=== PATIENT | female | born 1940 | race Caucasian/White ===

== ENCOUNTER 2017-10-19 08:48 | Observation (INO) | payer MEDICARE, SELFPAY ==
[2017-10-19] VITALS (8 sets, daily range): BP systolic 140–165; BP diastolic 69–90; PULSE 90–106; RESP 13–24; TEMP 37.1–37.5; O2SAT 88–99; BMI 28.3; BMI 29.5
--- NOTE | 2017-10-19 08:58 | EKG12_ITS ---
Test Reason : GEN ILLNESS Blood Pressure : / mmHG Vent. Rate : 099 BPM Atrial Rate : 099 BPM P-R Int : 148 ms QRS Dur : 076 ms QT Int : 364 ms P-R-T Axes : 047 -01 012 degrees QTc Int : 467 ms Normal sinus rhythm Nonspecific ST abnormality Abnormal ECG Confirmed by BEATRIZ MANCIA ([id number]), technical editor JUDIE SUAREZ ([id number]) on 10/23/2017 9:45:43 AM Referred By: Jose L Valenzuela Confirmed By:BEATRIZ MANCIA
--- NOTE | 2017-10-19 08:58 | CT_ITS ---
STUDY: CT ABDOMEN AND PELVIS WITHOUT CONTRAST REASON FOR EXAM: Female, 76 years old. Generalized illness and weakness RADIATION DOSAGE (If Supplied By Facility): CTDIvol = ( 13.34 ) mGy, DLP = ( 698.27 ) mGycm TECHNIQUE: Transaxial images were obtained from the dome of the diaphragm to the symphysis pubis without oral contrast, and without intravenous contrast. Sagittal and coronal images were reconstructed. Individualized dose optimization techniques were used for this CT. COMPARISON: None. FINDINGS: Elevated right hemidiaphragm. Lung bases are otherwise clear. Borderline cardiomegaly. Normal liver. There are surgical clips in the gallbladder fossa consistent with a prior cholecystectomy. Normal spleen. There is diffuse atrophy of the pancreas. Normal bilateral adrenal glands. Normal right kidney. Mid pole left nonobstructing stone measuring 4.8 mm. Exophytic hyperdense upper pole left renal cyst measuring 1.95 cm. Normal visualized stomach. Scattered gaseous distended loops of small bowel without obstruction; fluid-filled appearance. There are multiple colonic diverticula consistent with diverticulosis. There is non-visualization of the appendix. There is diffuse atherosclerotic calcification of the abdominal aorta, without a demonstrated aneurysm. Normal inferior vena cava. Normal retroperitoneum. Normal urinary bladder. Densely calcified large uterine fibroid. Normal abdominal wall. There are diffuse degenerative changes of the visualized lumbar spine. CT/Abdomen/Pelvis without Cont IMPRESSION: 1. Scattered fluid-filled loops of small bowel with scattered gaseous distention. No evidence of small bowel obstruction at this time. 2. Chronic diverticulosis without acute diverticulitis 3. Nonobstructing left nephrolith. Exophytic left renal cyst. 4. Nonvisualized appendix Electronically Signed: Oren Monk DO at 10:35 EST Tel , Service support ,
--- NOTE | 2017-10-19 08:58 | RAD_ITS ---
STUDY: X-RAY CHEST REASON FOR EXAM: Female, 76 years old. Cough. Generalized illness. TECHNIQUE: Single AP portable view of the chest. COMPARISON: Comparison is made with prior study dated March 09, 2018. FINDINGS: There is elevation of the right hemidiaphragm. 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 There is new blunting of the left costophrenic angle with underlying infiltration and/or atelectasis. There is borderline cardiomegaly. Normal mediastinum and quinton. Normal visualized pulmonary arteries. There is atherosclerotic tortuosity of the aortic arch and descending thoracic aorta. There is demineralization of the osseous structures. Normal visualized ribs, clavicles, and shoulders. There is no demonstrated abnormality of the visualized soft tissue structures of the upper abdomen. RAD/Chest 1 View (Portable) IMPRESSION: New small left pleural effusion with underlying infiltration and/or atelectasis. Electronically Signed: Fan Benavidez MD at 9:26 EST Tel [phone], Service support ,
--- NOTE | 2017-10-19 09:32 | ED.DCSUM_ITS ---
- ER Visit Summary Date of Service: 10/19/17 Chief Complaint: Generalized weakness History of Present Illness: The patient is a 76 F presenting for evaluation secondary to generalized weakness nausea vomiting diarrhea and abdominal pain. Apparently over the course of the week the patient has been having issues with increasing weakness. She saw her PCP 2 days ago was thought that potentially this was secondary to polypharmacy. However, the patient's family has been passing around a GI illness and the patient contracted this yesterday. Patient states that it has been associated with multiple episodes of nonbloody nonbilious emesis, as well as multiple episodes of loose watery nonbloody non- mucousy diarrhea. It is associated with a epigastric abdominal pain that is continuous and aching in sensation. Patient denies any fevers. Denies any chest pain. She denies any laterality to her weakness. Review of systems otherwise negative. Physical Examination: Vital signs are notable for heart rate of 106 respiratory rate 24. Well-nourished well-developed female no acute distress. Head normocephalic. No conjunctival pallor noted, dry mucous membranes. No JVD. Heart was tachycardic and regular with no murmurs. Respiratory tachypneic, but respirations were nonlabored nondistressed and lung sounds are clear. Abdomen was tender in the epigastrium no guarding no rebound normal bowel sounds. Extremities nonedematous. No skin rashes. Patient was alert and oriented ?3, NIH stroke scale was 0. No lateralizing neurological deficits. Test Results: EKG shows sinus rhythm at [address] segments, nonspecific T-wave flattening, no evidence of acute ischemia or arrhythmia. Chest x-ray demonstrates a left lower lobe infiltrate. CT abdomen and pelvis shows nothing acute. CBC chemistry unremarkable. Urinalysis shows blood but no infection. Emergency Department Course and Treatment: Patient presented secondary to generalized illness with abdominal pain. Workup showed only evidence of pneumonia. Patient actually demonstrated hypoxia in the emergency department with pulse ox of 88% on room air. She was placed on supplemental oxygen. This point I believe the patient requires admission. She was given Rocephin and azithromycin, and will be admitted under the hospitalist after blood cultures. Disposition: Admission Impression: 1. Community-acquired pneumonia 2. Hypoxia This note was generated with Prosettaation software. It may contain incorrect words, spelling, and punctuation that were not noted in review of the chart prior to signing ED Disposition - Plan for ED Patient: Chief Complaint: General Illness Referrals: Jose L Valenzuela MD [Primary Care Provider] -
[2017-10-19 09:42] LABS: Absolute Lymphocyte Count 0.26 X10^3/ul (0.83-4.51); Absolute Neutrophil Count 9.8 X10^3/uL (2.0-7.7); Basophil# 0.01 X10^3/uL; Basophil% 0.1 % (0-1); Hematocrit 42.4 % (37-47); Hemoglobin 13.9 g/dl (12.0-15.0); Lymphocyte # 0.26 X10^3/ul (4.0); Lymphocyte % 2.6 % (19-41); Mean Corp Hgb Conc 32.8 g/gl (32-36); Mean Corpuscular Hgb 29.6 pg (27.0-32.0); Mean Corpuscular Volume 90.4 fL (81-99); Mean Platelet Vol. 8.5 fl (6.2-12.0); Monocyte# 0.09 X10^3/uL; Monocyte% 0.9 % (0-10); Neutrophil # 9.77 X10^3/uL (2.7-7.7); Neutrophil % 96.3 % (47-70); Platelet Count 209 K/mm3 (150-450); RBC Distribution Width CV 13.5 % (11.6-14.6); Red Blood Count 4.69 M/mm3 (4.2-5.4); White Blood Count 10.1 K/mm3 (4.4-11.0)
[2017-10-19] MEDS: Ondansetron 4 MG/2 ML Vial IV ×2 (09:42→10:44)
[2017-10-19 09:44] LABS: Differential Indicated SCAN CRITERIA MET; POSITIVE COUNT NO; POSITIVE DIFFERENTIAL YES; POSITIVE MORPHOLOGY NO
--- NOTE | 2017-10-19 09:50 | NURSING ---
NO LW OR POA
[2017-10-19 09:52] LABS: ALB/GLOB Ratio 0.8 RATIO (0.9-2.4); AST(SGOT) 16 U/L (15-37); Alanine Aminotransfer ALT/SGPT 20 U/L (12-78); Albumin, Serum 3.5 g/dL (3.4-5.0); Alkaline Phosphatase 115 U/L (45-117); Anion Gap 8 (5-15); BUN 23 mg/dL (7-18); BUN/Creat Ratio 22.1 RATIO (10-20); Calcium,Total 9.1 mg/dL (8.5-10.1); Chloride 105 mmol/L (98-107); Creatinine, Serum 1.04 mg/dL (0.55-1.02); EST Glomerular Filtration Rate 54 mL/min (>60); Est Glom Filt Rate - Afr Amer 66 mL/min (>60); Globulin 4.3 g/dL (2.2-4.2); Glucose 141 mg/dL (70-110); Potassium 3.9 mmol/L (3.5-5.1); Protein, Total 7.8 g/dL (6.4-8.2); Sodium Level 140 mmol/L (136-145)
[2017-10-19 11:21] LABS: Mucous, Urine 0 SEEN /hpf (<or=2+)
[2017-10-19 11:25] LABS: Color, Urine Yellow (Yellow); Glucose, Dipstick Normal (Normal); Ketone-Dipstick Negative (Negative); Leukocyte Esterase-Dipstick 25 /ul (Negative); Nitrite-Dipstick Negative (Negative); Occult Blood-Urine 150 /ul (Negative); Protein-Dipstick 100 mg/dl (Negative); Specific Gravity, Urine 1.015 (1.002-1.030); Urine Bilirubin Dipstick Negative (Negative); Urine Clarity Sl. Cloudy (Clear); Urine Urobilinogen Normal (Normal)
[2017-10-19 11:31] LABS: Bacteria 1+ /hpf (None Seen); Red Blood Cells-Urine 10-25 SEEN /hpf (0-5); Squamous Epithelial Cells - UA 0-5 SEEN /hpf (5-10); White Blood Cells 0-5 SEEN /hpf (0-5)
[2017-10-19] MEDS: Ceftriaxone 1 GM/50 mL Premix x1 IV (12:40)
[2017-10-19 13:36] LABS: Base Excess 2 mmol/L (-2 to +2); Bicarbonate 26.7 mmol/L (22-26); Blood Gas Specimen Type ART; O2 Delivery Device Room Air; PO2 59 mmHG (75-100); SITE L Brachial; SO2 90 % (95-99); Time Given 1328; Total Carbon Dioxide 28 mmol/L; pCO2 44.8 mmHg (35-45); pH 7.38 (7.35-7.45)
--- NOTE | 2017-10-19 14:41 | NURSING ---
DR RUIZ IN ROOM
--- NOTE | 2017-10-19 15:23 | HP.PCM_ITS ---
Problem List (1) Hypoxia Status: Acute (2) Gastroenteritis Status: Acute (3) Depression Status: Chronic (4) HLD (hyperlipidemia) Status: Chronic (5) Hypertension Status: Chronic (6) Overweight (BMI 25.0-29.9) Status: Chronic History of Present Illness Date of Admission: 10/19/17 Chief Complaint: nausea, vomiting, diarrhea The patient is a 76 year old F who presents to the ER complaining of nausea vomiting and diarrhea. She has been severely nauseous with multiple episodes of vomiting, anorexia, decreased PO intake, diarrhea, and diffuse abdominal pain since last night. She has had similar off and on symptoms for several weeks, and her son also has had similar symptoms. They went to their PCP and were told they had viral gastroenteritis. The patient however feels much worse. She remains significant nauseous and is hiccuping into an emesis basin. She feels SOB when she starts vomiting. Otherwise she has no SOB. She was found to be hypoxic at one point in the ER at 88% on RA and was placed on O2. She has an occasional cough with clear sputum production. She has no fevers, some chills last night. She is dizzy when she ambulates, none at rest. [] Past Medical History Past Medical History (Chronic Problems): Chronic Problems Hx of appendectomy (Chronic) Benign essential HTN (Chronic) Depression (Chronic) HLD (hyperlipidemia) (Chronic) Overweight (BMI 25.0-29.9) (Chronic) CAD (coronary artery disease) (Chronic) Diabetes mellitus, type II (Chronic) Traumatic closed nondisplaced fracture of neck of left femur (Chronic) Status post closed reduction with internal fixation (Chronic) left femur 06/22, Dr Spears, [facility] Tinea unguium (Chronic) Dyskinesia, tardive (Chronic) Takatsuki syndrome (Chronic) Brain aneurysm (Chronic) Takotsubo syndrome (Chronic) Hypertension (Chronic) Allergies No Known Allergies Allergy (Verified 03/17/17 10:29) Home Medications: Ambulatory Orders Medication Instructions Recorded Clonidine HCl 0.05 tab PO BID 03/17/17 Fluoxetine [Prozac] 60 mg PO DAILY 03/17/17 Furosemide [Lasix] 20 mg PO DAILY 03/17/17 Lorazepam [Ativan] 1 mg PO BID 03/17/17 Losartan Potassium 100 mg PO DAILY 03/17/17 Magnesium Oxide [Mag-Ox 400] 400 mg PO QHS 03/17/17 Pantoprazole Sodium [Protonix] 20 mg PO DAILY 03/17/17 Pramipexole Di-HCl [Pramipexole 0.75 mg PO QHS 03/17/17 Dihydrochloride] Simvastatin 40 mg PO DAILY 03/17/17 Spironolactone 25 mg PO DAILY 03/17/17 Dicyclomine HCl 20 mg PO DAILY PRN 10/19/17 Minoxidil [Loniten] 2.5 mg PO BID 10/19/17 Ondansetron HCl [Zofran] 4 mg PO Q8H PRN 10/19/17 Surgical History: appendectomy, cholecystectomy, herniorrhaphy, tonsillectomy, - - 06/22/15 left hip CRIF Psychiatric History: No pertinent psych hx, Depression [employer] History: No pertinent [employer] history Smoking Status: Never smoker - *Family History Maternal History Items: Cancer - age 55, colon Paternal History Items: Cancer - in metastatic prostate Offspring History Items: - - 2 children Review of Systems Constitutional: Reports: Anorexia, Chills. Denies: Fever, Weight Change HEENT: Denies: Head Aches, Sinus Congestion, Sinus Drainage Cardiovascular: Denies: Chest Pain, Palpitations Respiratory: Reports: Cough, Shortness of Breath, Sputum production. Denies: Shortness of breath at rest Gastrointestinal: Reports: Abdominal Pain, Diarrhea, Nausea, Vomiting Genitourinary: Denies: Dysuria Musculoskeletal: Denies: Joint Pain, Joint Tenderness Skin: Denies: Rash, Wounds Neurological: Denies: Numbness, Tingling, Focal weakness Psychiatric: Denies: Anxiety, Depression, Homicidal Ideations, Suicidal Ideations Hematologic/ Lymphatic: Denies: Easy Bruising, Easy Bleeding VTE Information - Inpt Only VTE Present on Admission: No VTE Mechan Device Prophylaxis: SCD's VTE Pharm Prophylaxis ordered?: Yes Patient Problems: Active and Suspected Problems Gastroenteritis (Acute) Hypoxia (Acute) - Physical Exam General: Alert, Oriented x3, Cooperative HEENT: Atraumatic, PERRLA, EOMI, Normocephalic Oral: Dry Mucosa Neck: Supple, No JVD, Negative Carotid Bruits Lungs: Clear to auscultation, Normal air movement Cardiovascular: Regular rate, No murmurs Abdomen: Bowel Sounds Present, Soft, Tender - diffusely, no guarding. Extremities: No edema, Capillary Refill Less than 3 Seconds Skin: No rashes, No breakdown Musculoskeletal: No Tenderness to Palpation of Joints or Extremities Neurological: Cranial nerves II-XII grossly intact Psych/Mental Status: Normal Affect, Appropriate, Alert and oriented to time, place, person, mood and affect Vital Signs Temp Pulse Resp BP Pulse Ox 98.9 F 90 13 140/79 H 96 10/19/17 08:49 10/19/17 14:35 10/19/17 14:35 10/19/17 14:27 10/19/17 14:35 Oxygen Flow Rate 2 Oxygen Delivery Method Nasal Cannula Weight: 74.843 kg Body Mass Index (BMI) 28.3 Finger Stick Blood Glucose 176 Laboratory Tests Past 24 Hrs 10/19/17 10/19/17 10/19/17 09:30 09:30 09:30 WBC 10.1 RBC 4.69 Hgb 13.9 Hct 42.4 MCV 90.4 MCH 29.6 MCHC 32.8 RDW 13.5 RDW Differential 44.0 H Plt Count 209 MPV 8.5 Immature Gran % (Auto) 0.100 Neut % (Auto) 96.3 H Lymph % (Auto) 2.6 L Ida % (Auto) 0.9 Eos % (Auto) 0.0 Baso % (Auto) 0.1 Absolute Neuts (auto) 9.8 H Absolute Lymphs (auto) 0.26 L Total Counted Not Reportable Specimen Type Sample Site pH Bicarbonate Actual POC Total CO2 Base Excess O2 Saturation ABG pCO2 ABG pO2 O2 Delivery Device Blood Gas Notified Whom Blood Gas Notified Time Sodium 140 Potassium 3.9 Chloride 105 Carbon Dioxide 27.0 Anion Gap 8 BUN 23 H Creatinine 1.04 H Estim Creat Clear Calc 38.50 Est GFR (MDRD) Af Amer 66 Est GFR (MDRD) Non-Af 54 L BUN/Creatinine Ratio 22.1 H Glucose 141 H Lactic Acid 1.0 Calcium 9.1 Total Bilirubin 0.30 AST 16 ALT 20 Alkaline Phosphatase 115 Total Protein 7.8 Albumin 3.5 Globulin 4.3 H Albumin/Globulin Ratio 0.8 L Urine Color Urine Clarity Urine pH Ur Specific [place] Urine Protein Urine Glucose (UA) Urine Ketones Urine Occult Blood Urine Nitrite Urine Bilirubin Urine Urobilinogen Ur Leukocyte Esterase Urine RBC Urine WBC Ur Squamous Epith Cells Urine Bacteria Urine Mucus 10/19/17 10/19/17 11:15 13:30 WBC RBC Hgb Hct MCV MCH MCHC RDW RDW Differential Plt Count MPV Immature Gran % (Auto) Neut % (Auto) Lymph % (Auto) Ida % (Auto) Eos % (Auto) Baso % (Auto) Absolute Neuts (auto) Absolute Lymphs (auto) Total Counted Specimen Type ART Sample Site L Brachial pH 7.38 Bicarbonate Actual 26.7 H POC Total CO2 28 Base Excess 2 O2 Saturation 90 L ABG pCO2 44.8 ABG pO2 59 L O2 Delivery Device Room Air Blood Gas Notified Whom ED Blood Gas Notified Time 1328 Sodium Potassium Chloride Carbon Dioxide Anion Gap BUN Creatinine Estim Creat Clear Calc Est GFR (MDRD) Af Amer Est GFR (MDRD) Non-Af BUN/Creatinine Ratio Glucose Lactic Acid Calcium Total Bilirubin AST ALT Alkaline Phosphatase Total Protein Albumin Globulin Albumin/Globulin Ratio Urine Color Yellow Urine Clarity Sl. Cloudy Urine pH 6.0 Ur Specific [place] 1.015 Urine Protein 100 H Urine Glucose (UA) Normal Urine Ketones Negative Urine Occult Blood 150 H Urine Nitrite Negative Urine Bilirubin Negative Urine Urobilinogen Normal Ur Leukocyte Esterase 25 H Urine RBC 10-25 SEEN Urine WBC 0-5 SEEN Ur Squamous Epith Cells 0-5 SEEN Urine Bacteria 1+ Urine Mucus 0 SEEN Assessment/Plan Active and Suspected Problems Gastroenteritis (Acute) Hypoxia (Acute) 1. Acute Hypoxia - unclear etiology - Initially she was 99% on RA, then at some point in the ER decreased to 88% and was placed on O2. CT abdomen shows clear lung bases, CXR with small left pleural effusion vs consolidation vs atelectasis. Lungs clear on exam. Only complains of SOB when vomiting. Pulmonary consult. CT chest. Nonsmoker no hx asthma/copd. PRN aerosols. Afebrile no leukocytosis. Defer antibiotics. Doubt infectious process. LA neg. 2. Intractable nausea / vomiting/ diarrhea / diffuse abdominal pain - viral gastroenteritis. Son is also sick. IV fluids. prn antiemetics. clear liquid diet. s/p appendectomy and cholecystectomy. 3. Hx htn, depression, HLD - continue home meds. 4. Mildly elevated BUN and Cr - suspect dehydration - some dizziness when ambulating. dry oral mucosa - IV fluids. DVT ppx: heparin DC planning: lives alone, son helps with care, doubt she will have home going needs. This patient was seen by Cesar Fernandez PA-C under the supervision of Doctor Hansen.
--- NOTE | 2017-10-19 15:49 | NURSING ---
MED SURG OBS HYPOXIA, VIRAL GASTROENTERITIS JOSEPH
--- NOTE | 2017-10-19 16:56 | CT_ITS ---
STUDY: CT CHEST WITHOUT CONTRAST REASON FOR EXAM: Female, 76 years old. Cough, weakness RADIATION DOSAGE (If Supplied By Facility): CTDIvol = ( 15.37 ) mGy, DLP = ( 553.04 ) mGycm TECHNIQUE: Transaxial imaging was performed without the administration of intravenous contrast material. Individualized dose optimization techniques were used for this CT. COMPARISON: 10/17/2016. FINDINGS: Compressive atelectasis right lower lung. There is no demonstrated pleural abnormality. Normal heart and pericardium. Normal mediastinum. Normal hilar regions. There is prominence of the pulmonary hilar arteries without peripheral pulmonary vascular congestion, suggesting pulmonary hypertension. Normal aorta arch and descending thoracic aorta. Normal osseous structures. Fluid-filled small bowel. Right diaphragmatic hernia There is a posterior right lower thoracic subcutaneous lipoma measuring 5.[address]/Chest without Contrast IMPRESSION: Unchanged right diaphragmatic hernia. Compressive atelectasis right lower lung. Pulmonary venous hypertension. Small bowel ileus versus partial obstruction. Large posterior right lower thoracic subcutaneous lipoma. Electronically Signed: Lenny Cook DO at 18:11 EST , Service support ,
[2017-10-19] MEDS: 0.9% Normal Saline 1,000 ML 125 ML IV (17:58)
[2017-10-19] MEDS: Albuterol 2.5 MG/3 ML VIAL.NEB. INHALATION (19:36)
[2017-10-19] MEDS: LORazepam 1 MG Tablet PO (21:49)
[2017-10-19] MEDS: Minoxidil 2.5 MG Tablet PO (21:50)
[2017-10-19] MEDS: 0.9% NaCl Peripheral Flush Adult/Peds IV (21:57)
[2017-10-19] MEDS: cloNIDine HCl 0.1 MG Tablet 0.05 MG PO (22:03)
[2017-10-20] MEDS: 0.9% Normal Saline 1,000 ML 125 ML IV (01:26)
[2017-10-20 03:41] VITALS: BP 146/76; PULSE 89; RESP 18; TEMP 37.2; O2SAT 98
[2017-10-20] MEDS: 0.9% NaCl Peripheral Flush Adult/Peds IV (07:07)
[2017-10-20 07:23] VITALS: O2SAT 96
[2017-10-20 07:37] LABS: Absolute Lymphocyte Count 0.77 X10^3/ul (0.83-4.51); Absolute Neutrophil Count 5.6 X10^3/uL (2.0-7.7); Basophil# 0.01 X10^3/uL; Basophil% 0.1 % (0-1); Hematocrit 38.7 % (37-47); Hemoglobin 12.5 g/dl (12.0-15.0); Lymphocyte # 0.77 X10^3/ul (4.0); Lymphocyte % 11.5 % (19-41); Mean Corp Hgb Conc 32.3 g/gl (32-36); Mean Corpuscular Hgb 29.8 pg (27.0-32.0); Mean Corpuscular Volume 92.4 fL (81-99); Mean Platelet Vol. 8.8 fl (6.2-12.0); Monocyte# 0.29 X10^3/uL; Monocyte% 4.3 % (0-10); Neutrophil # 5.64 X10^3/uL (2.7-7.7); Neutrophil % 84.1 % (47-70); Platelet Count 189 K/mm3 (150-450); RBC Distribution Width CV 13.9 % (11.6-14.6); RBC Distribution Width SD 47.1 fl (35.1-43.9); Red Blood Count 4.19 M/mm3 (4.2-5.4); White Blood Count 6.7 K/mm3 (4.4-11.0)
--- NOTE | 2017-10-20 07:42 | PCM.CONS.GEN ---
Problem List (1) Gastroenteritis Status: Acute (2) Hypoxia Status: Acute (3) Diabetic neuropathy Status: Acute Qualifiers: Diabetes mellitus type: type 2 Diabetes mellitus complication detail: with other neurological complication Qualified Code(s): E11.49 - Type 2 diabetes mellitus with other diabetic neurological complication (4) Status post total hip replacement, left Status: Acute Comment: 08/03/15, failed concervative pinning, completed by Dr Spears [facility] (5) Benign essential HTN Status: Chronic (6) Brain aneurysm Status: Chronic (7) CAD (coronary artery disease) Status: Chronic Qualifiers: Coronary Disease-Associated Artery/Lesion type: [place] artery [place] vs. 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 Patient had attempted conservative therapy at home and saw her PCP 2 days prior to presentation to the ER. Suspicion for polypharmacy at that time. After multiple episodes of emesis, patient presented to the ER for evaluation. On evaluation in the emergency room, patient was noted to be tachycardic at 106 bpm and saturating 88% on room air. There was discussion about possible discharge home, but given patient's desaturation, patient was admitted to the floor for evaluation. Patient was empirically placed on Rocephin and azithromycin. Patient did have a CT scan of the abdomen and pelvis. Patient reports little subjective change in overall condition. Patient does have some nausea and tinnitus this morning. Patient denies any chest pain. Patient is not a very good historian of the recent past. Patient states she has no knowledge of previous chest imaging, but later states that she was evaluated in [place] approximately 1 year ago for possible correction of my diaphragm, but it was good to be very involved so I decided not to do it. Patient states she uses this hospital is her primary health access point and most imaging should be here. Patient denies any history of smoking or asthma. Patient has never had pulmonary function tests or used inhalers in the past. Patient has not required supplemental oxygen in the past. Patient denies any chest surgery. Patient does report a history of a cholecystectomy, appendectomy and tonsillectomy. Patient denies any open heart surgery or neck surgery. Patient does report a sporadic productive cough over the last 2-3 days. Patient is unaware of the color of the sputum. Review of systems otherwise negative ?10 systems. Past Medical History Past Medical History (Chronic Problems): Chronic Problems Hx of appendectomy (Chronic) Benign essential HTN (Chronic) Depression (Chronic) HLD (hyperlipidemia) (Chronic) Overweight (BMI 25.0-29.9) (Chronic) CAD (coronary artery disease) (Chronic) Diabetes mellitus, type II (Chronic) Traumatic closed nondisplaced fracture of neck of left femur (Chronic) Status post closed reduction with internal fixation (Chronic) left femur 06/22, Dr Spears, [facility] Tinea unguium (Chronic) Dyskinesia, tardive (Chronic) Takatsuki syndrome (Chronic) Brain aneurysm (Chronic) Takotsubo syndrome (Chronic) Hypertension (Chronic) Allergies No Known Allergies Allergy (Verified 03/17/17 10:29) Home Medications: Ambulatory Orders Medication Instructions Recorded Clonidine HCl 0.05 tab PO BID 03/17/17 Fluoxetine [Prozac] 60 mg PO DAILY 03/17/17 Furosemide [Lasix] 20 mg PO DAILY 03/17/17 Lorazepam [Ativan] 1 mg PO BID 03/17/17 Losartan Potassium 100 mg PO DAILY 03/17/17 Magnesium Oxide [Mag-Ox 400] 400 mg PO QHS 03/17/17 Pantoprazole Sodium [Protonix] 20 mg PO DAILY 03/17/17 Pramipexole Di-HCl [Pramipexole 0.75 mg PO QHS 03/17/17 Dihydrochloride] Simvastatin 40 mg PO QHS 03/17/17 Spironolactone 25 mg PO DAILY 03/17/17 Dicyclomine HCl 20 mg PO DAILY PRN 10/19/17 Minoxidil [Loniten] 2.5 mg PO BID 10/19/17 Ondansetron HCl [Zofran] 4 mg PO Q8H PRN 10/19/17 Surgical History: appendectomy, cholecystectomy, herniorrhaphy, tonsillectomy, - - 06/22/15 left hip CRIF Psychiatric History: No pertinent psych hx, Depression ONLINE CONTENT EDITOR History: No pertinent ONLINE CONTENT EDITOR history Smoking Status: Never smoker - *Family History Maternal History Items: Cancer - age 55, colon Paternal History Items: Cancer - in metastatic prostate Offspring History Items: - - 2 children Review of Systems Comment: See HPI, otherwise negative ?10 systems. Patient Problems: Active and Suspected Problems Gastroenteritis (Acute) Hypoxia (Acute) Objective: All imaging was personally reviewed. CT scan of the abdomen and pelvis and chest show a right diaphragmatic hernia. Patient does have increased pulmonary artery diameter, but no infiltrate is appreciated. Chest x-ray was reviewed, but CT scan did not show any pleural effusion or infiltrate on my review. - Physical Exam General: Alert, Oriented x3, Cooperative, No apparent distress, - - Speaking in full sentences. HEENT: Atraumatic, PERRLA, EOMI, Normocephalic, - - No scleral icterus or injection noted. Oral: Moist Mucosa, No Gingival or Mucosal Lesions/ Ulcerations Neck: Supple, No JVD, No Nodes, Trachea Midline Lungs: No rhonchi, No wheeze, No rales, Diminished - Right base, - - Decreased expansion of the right chest compared to left. Cardiovascular: Regular rate, Regular Rhythm, Normal S1, Normal S2, No murmurs, No rub noted, No Gallop Abdomen: Soft, Non Tender, Non-Distended, Hyperactive Bowel Sounds, Obese Extremities: No clubbing, No cyanosis, No edema, Capillary Refill Less than 3 Seconds Skin: No rashes, No breakdown, - - Mild dermal atrophy noted Musculoskeletal: No Tenderness to Palpation of Joints or Extremities Lymphatic: No Cervical, Supraclavicular, or Inguinal Adenopathy Neurological: Cranial nerves II-XII grossly intact, Neuro grossly intact, Motor Exam 5/5 strength throughout, Sensory exam intact to light touch and pain, - - Slight tremor appreciated of the face Psych/Mental Status: Alert and oriented to time, place, person, mood and affect Vital Signs Temp Pulse Resp BP Pulse Ox 37.2 C 89 18 146/76 H 98 10/20/17 03:41 10/20/17 03:41 10/20/17 03:41 10/20/17 03:41 10/20/17 03:41 Oxygen Flow Rate 2 Oxygen Delivery Method Nasal Cannula Weight: 78.063 kg Body Mass Index (BMI) 29.5 Intake and Output for Last 24 Hours 10/18/17 10/19/17 10/20/17 23:59 23:59 23:59 Intake Total 1482 / 1482 Output Total 200 / 200 Balance 1282 / 1282 Laboratory Tests 10/19/17 10/19/17 10/19/17 09:30 09:30 09:30 WBC 10.1 RBC 4.69 Hgb 13.9 Hct 42.4 MCV 90.4 MCH 29.6 MCHC 32.8 RDW 13.5 RDW Differential 44.0 H Plt Count 209 MPV 8.5 Immature Gran % (Auto) 0.100 Neut % (Auto) 96.3 H Lymph % (Auto) 2.6 L [place] % (Auto) 0.9 Eos % (Auto) 0.0 Baso % (Auto) 0.1 Absolute Neuts (auto) 9.8 H Absolute Lymphs (auto) 0.26 L Total Counted Not Reportable Specimen Type Sample Site pH Bicarbonate Actual POC Total CO2 Base Excess O2 Saturation ABG pCO2 ABG pO2 O2 Delivery Device Blood Gas Notified Whom Blood Gas Notified Time Sodium 140 Potassium 3.9 Chloride 105 Carbon Dioxide 27.0 Anion Gap 8 BUN 23 H Creatinine 1.04 H Estim Creat Clear Calc 38.50 Est GFR (MDRD) Af Amer 66 Est GFR (MDRD) Non-Af 54 L BUN/Creatinine Ratio 22.1 H Glucose 141 H Lactic Acid 1.0 Calcium 9.1 Total Bilirubin 0.30 AST 16 ALT 20 Alkaline Phosphatase 115 Total Protein 7.8 Albumin 3.5 Globulin 4.3 H Albumin/Globulin Ratio 0.8 L Urine Color Urine Clarity Urine pH Ur Specific Buna Urine Protein Urine Glucose (UA) Urine Ketones Urine Occult Blood Urine Nitrite Urine Bilirubin Urine Urobilinogen Ur Leukocyte Esterase Urine RBC Urine WBC Ur Squamous Epith Cells Urine Bacteria Urine Mucus 10/19/17 10/19/17 11:15 13:30 WBC RBC Hgb Hct MCV MCH MCHC RDW RDW Differential Plt Count MPV Immature Gran % (Auto) Neut % (Auto) Lymph % (Auto) Pi[place] % (Auto) Eos % (Auto) Baso % (Auto) Absolute Neuts (auto) Absolute Lymphs (auto) Total Counted Specimen Type ART Sample Site L Brachial pH 7.38 Bicarbonate Actual 26.7 H POC Total CO2 28 Base Excess 2 O2 Saturation 90 L ABG pCO2 44.8 ABG pO2 59 L O2 Delivery Device Room Air Blood Gas Notified Whom ED Blood Gas Notified Time 1328 Sodium Potassium Chloride Carbon Dioxide Anion Gap BUN Creatinine Estim Creat Clear Calc Est GFR (MDRD) Af Amer Est GFR (MDRD) Non-Af BUN/Creatinine Ratio Glucose Lactic Acid Calcium Total Bilirubin AST ALT Alkaline Phosphatase Total Protein Albumin Globulin Albumin/Globulin Ratio Urine Color Yellow Urine Clarity Sl. Cloudy Urine pH 6.0 Ur Specific Buna 1.015 Urine Protein 100 H Urine Glucose (UA) Normal Urine Ketones Negative Urine Occult Blood 150 H Urine Nitrite Negative Urine Bilirubin Negative Urine Urobilinogen Normal Ur Leukocyte Esterase 25 H Urine RBC 10-25 SEEN Urine WBC 0-5 SEEN Ur Squamous Epith Cells 0-5 SEEN Urine Bacteria 1+ Urine Mucus 0 SEEN Clinical Impression(s) from Imaging Studies Abdomen/Pelvis CT 10/19/17 08:58 IMPRESSION: 1. Scattered fluid-filled loops of small bowel with scattered gaseous distention. No evidence of small bowel obstruction at this time. 2. Chronic diverticulosis without acute diverticulitis 3. Nonobstructing left nephrolith. Exophytic left renal cyst. 4. Nonvisualized appendix Electronically Signed: Oren Monk DO at 10:35 EST Tel , Service support , Chest X-Ray 10/19/17 08:58 IMPRESSION: New small left pleural effusion with underlying infiltration and/or atelectasis. Electronically Signed: Fan Benavidez MD at 9:26 EST Tel [phone], Service support , Chest CT 10/19/17 16:56 IMPRESSION: Unchanged right diaphragmatic hernia. Compressive atelectasis right lower lung. Pulmonary venous hypertension. Small bowel ileus versus partial obstruction. Large posterior right lower thoracic subcutaneous lipoma. Electronically Signed: Lennycheli Franklinmichael at 18:11 EST , Service support , Assessment/Plan Active and Suspected Problems Gastroenteritis (Acute) Hypoxia (Acute) RECOMMENDATIONS: 1. Obtain echocardiogram 2. Walking oximetry prior to discharge 3. Supplemental oxygen if indicated on discharge 4. Close outpatient follow-up with pulmonary office for PFT 5. Avoid BiPAP or positive pressure ventilation of possible 6. Likely okay to discontinue antibiotics from my perspective IMPRESSIONS: 1. Hypoxia Patient with a relatively substantial right-sided diaphragmatic hernia. Need to verify history, but it sounds like this has been evaluated in the past. No imaging is available for review at this time that shows chronicity. Clinical suspicion for restrictive lung disease secondary to this hernia leading to decreased saturations from atelectasis of a compressive nature. Patient does have a substantially dilated pulmonary artery on CT scan. Recommend obtaining echocardiogram for evaluation of pulmonary artery pressures in comparison to echo in January with an RVSP of 29. Correction of diaphragmatic hernia would be a substantial surgery and patient may not elect to complete it, even if indicated by saturations. Amount of atelectasis may improve using incentive spirometer and with decreased bowel gas after cessation of gastroenteritis. 2. Acute gastroenteritis Probable viral in etiology. Patient does have family members with similar type illnesses. Labs are currently pending for this morning. Defer to hospitalist for acute management. Increased bowel gas would worsen underlying hernia. Code Visit Inpatient E&M: 38398 Init Hosp L2
[2017-10-20 07:51] LABS: POSITIVE COUNT NO; POSITIVE DIFFERENTIAL NO; POSITIVE MORPHOLOGY NO
--- NOTE | 2017-10-20 07:55 | ECHOCS_ITS ---
Reason For Study: PHTN Procedure This was a 2D Doppler, Color Flow transthoracic echocardiogram. Exam performed portable in patient room. Left Ventricle Normal size and thickness. The estimated ejection fraction is 75 %. Stage 1 diastolic dysfunction. No regional wall motion abnormalities noted. Right Ventricle Mildly dilated right ventricle. Normal systolic function. Atria Normal left atrium. Normal right atrium. Normal atrial septum. Mitral Valve The mitral valve is structurally normal. No prolapse or stenosis seen. Tricuspid Valve Normal tricuspid valve. Mild (1+) tricuspid valve insufficiency. Right ventricular systolic pressure estimated to be 48 mmHg. Moderate pulmonary hypertension. Aortic Valve Trisinus/trileaflet aortic valve. Mild diffuse aortic valve thickening. Trivial aortic valve insufficiency. Pulmonic Valve Normal pulmonic valve. Great Vessels Normal aortic root. Normal arch. Normal inferior vena cava. Inferior vena cava collapse with sniff. Pericardium/Pleural No pericardial effusion. MMode/2D Measurements & Calculations LVIDd: 3.9 cm IVSd: 1.3 cm LVOT diam: 2.0 cm LVIDs: 2.6 cm LVPWd: 0.96 cm LVOT area: 3.0 cm2 FS: 33.7 % Ao root diam: 3.2 cm LAV(MOD-bp): 59.4 ml LA A4 area: 17.1 cm2 LA dimension: 3.8 cm LAV(MOD-bp) Indexed: 32.4 ml/m2 LAV(MOD-sp2): 67.0 ml LAV(MOD-sp4): 44.9 ml Time Measurements MV dec time: 0.21 sec Doppler Measurements & Calculations MV E max mehrdad: 63.0 cm/sec Lat Peak E' Mehrdad: 13.6 cm/sec Med Peak E' Mehrdad: 9.4 cm/sec MV A max mehrdad: 84.6 cm/sec E/E' lat: 4.7 E/E' med: 6.7 MV E/A: 0.75 MV V2 max: 85.7 cm/sec MV P1/2t max mehrdad: 83.0 cm/sec Ao V2 max: 136.5 cm/sec MV max P.9 mmHg MV P1/2t: 94.8 msec Ao max P.5 mmHg MV V2 mean: 54.6 cm/sec MV dec slope: 256.6 cm/sec2 Ao V2 mean: 95.9 cm/sec MV mean P.4 mmHg MVA(P1/2t): 2.3 cm2 Ao mean P.1 mmHg MV V2 VTI: 21.2 cm Ao V2 VTI: 26.3 cm MVA(VTI): 3.4 cm2 RISHABH(I,D): 2.8 cm2 RISHABH(V,D): 2.8 cm2 AI max mehrdad: 362.4 cm/sec LV V1 max: 126.2 cm/sec SV(LVOT): 73.1 ml AI max P.5 mmHg LV V1 max P.4 mmHg AI dec slope: 328.3 cm/sec2 LV V1 mean P.2 mmHg AI P1/2t: 323.3 msec LV V1 mean: 84.5 cm/sec LV V1 VTI: 24.1 cm PA V2 max: 92.9 cm/sec TR max mehrdad: 327.6 cm/sec TR max P.9 mmHg Interpretation Summary The estimated ejection fraction is 75 %. Stage 1 diastolic dysfunction. Mildly dilated right ventricle. Mild (1+) tricuspid valve insufficiency. Right ventricular systolic pressure estimated to be 48 mmHg. Moderate pulmonary hypertension. Trivial aortic valve insufficiency. Compared to echo report dated 02/16/2017, LV function has remained the same, but RVSP has increased from 29 to 48 mm Hg. Ordering Physician: Cresencio Barkley Referring Physician: Jose L Valenzuela Performed By: Huang Ruth RCS
--- NOTE | 2017-10-20 07:57 | CON.PCM_ITS ---
Problem List (1) Gastroenteritis Status: Acute (2) Hypoxia Status: Acute (3) Diabetic neuropathy Status: Acute Qualifiers: Diabetes mellitus type: type 2 Diabetes mellitus complication detail: with other neurological complication Qualified Code(s): E11.49 - Type 2 diabetes mellitus with other diabetic neurological complication (4) Status post total hip replacement, left Status: Acute Comment: 08/03/15, failed concervative pinning, completed by Dr Spears [facility] (5) Benign essential HTN Status: Chronic (6) Brain aneurysm Status: Chronic (7) CAD (coronary artery disease) Status: Chronic Qualifiers: Coronary Disease-Associated Artery/Lesion type: [place] artery [place] vs. 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 Patient had attempted conservative therapy at home and saw her PCP 2 days prior to presentation to the ER. Suspicion for polypharmacy at that time. After multiple episodes of emesis, patient presented to the ER for evaluation. On evaluation in the emergency room, patient was noted to be tachycardic at 106 bpm and saturating 88% on room air. There was discussion about possible discharge home, but given patient's desaturation, patient was admitted to the floor for evaluation. Patient was empirically placed on Rocephin and azithromycin. Patient did have a CT scan of the abdomen and pelvis. Patient reports little subjective change in overall condition. Patient does have some nausea and tinnitus this morning. Patient denies any chest pain. Patient is not a very good historian of the recent past. Patient states she has no knowledge of previous chest imaging, but later states that she was evaluated in [place] approximately 1 year ago for possible correction of my diaphragm, but it was good to be very involved so I decided not to do it. Patient states she uses this hospital is her primary health access point and most imaging should be here. Patient denies any history of smoking or asthma. Patient has never had pulmonary function tests or used inhalers in the past. Patient has not required supplemental oxygen in the past. Patient denies any chest surgery. Patient does report a history of a cholecystectomy, appendectomy and tonsillectomy. Patient denies any open heart surgery or neck surgery. Patient does report a sporadic productive cough over the last 2-3 days. Patient is unaware of the color of the sputum. Review of systems otherwise negative ?10 systems. Past Medical History Past Medical History (Chronic Problems): Chronic Problems Hx of appendectomy (Chronic) Benign essential HTN (Chronic) Depression (Chronic) HLD (hyperlipidemia) (Chronic) Overweight (BMI 25.0-29.9) (Chronic) CAD (coronary artery disease) (Chronic) Diabetes mellitus, type II (Chronic) Traumatic closed nondisplaced fracture of neck of left femur (Chronic) Status post closed reduction with internal fixation (Chronic) left femur 06/22, Dr Spears, [facility] Tinea unguium (Chronic) Dyskinesia, tardive (Chronic) Takatsuki syndrome (Chronic) Brain aneurysm (Chronic) Takotsubo syndrome (Chronic) Hypertension (Chronic) Allergies No Known Allergies Allergy (Verified 03/17/17 10:29) Home Medications: Ambulatory Orders Medication Instructions Recorded Clonidine HCl 0.05 tab PO BID 03/17/17 Fluoxetine [Prozac] 60 mg PO DAILY 03/17/17 Furosemide [Lasix] 20 mg PO DAILY 03/17/17 Lorazepam [Ativan] 1 mg PO BID 03/17/17 Losartan Potassium 100 mg PO DAILY 03/17/17 Magnesium Oxide [Mag-Ox 400] 400 mg PO QHS 03/17/17 Pantoprazole Sodium [Protonix] 20 mg PO DAILY 03/17/17 Pramipexole Di-HCl [Pramipexole 0.75 mg PO QHS 03/17/17 Dihydrochloride] Simvastatin 40 mg PO QHS 03/17/17 Spironolactone 25 mg PO DAILY 03/17/17 Dicyclomine HCl 20 mg PO DAILY PRN 10/19/17 Minoxidil [Loniten] 2.5 mg PO BID 10/19/17 Ondansetron HCl [Zofran] 4 mg PO Q8H PRN 10/19/17 Surgical History: appendectomy, cholecystectomy, herniorrhaphy, tonsillectomy, - - 06/22/15 left hip CRIF Psychiatric History: No pertinent psych hx, Depression [employer] WORK [employer]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 Patient Problems: Active and Suspected Problems Gastroenteritis (Acute) Hypoxia (Acute) Objective: All imaging was personally reviewed. CT scan of the abdomen and pelvis and chest show a right diaphragmatic hernia. Patient does have increased pulmonary artery diameter, but no infiltrate is appreciated. Chest x-ray was reviewed, but CT scan did not show any pleural effusion or infiltrate on my review. - Physical Exam General: Alert, Oriented x3, Cooperative, No apparent distress, - - Speaking in full sentences. HEENT: Atraumatic, PERRLA, EOMI, Normocephalic, - - No scleral icterus or injection noted. Oral: Moist Mucosa, No Gingival or Mucosal Lesions/ Ulcerations Neck: Supple, No JVD, No Nodes, Trachea Midline Lungs: No rhonchi, No wheeze, No rales, Diminished - Right base, - - Decreased expansion of the right chest compared to left. Cardiovascular: Regular rate, Regular Rhythm, Normal S1, Normal S2, No murmurs, No rub noted, No Gallop Abdomen: Soft, Non Tender, Non-Distended, Hyperactive Bowel Sounds, Obese Extremities: No clubbing, No cyanosis, No edema, Capillary Refill Less than 3 Seconds Skin: No rashes, No breakdown, - - Mild dermal atrophy noted Musculoskeletal: No Tenderness to Palpation of Joints or Extremities Lymphatic: No Cervical, Supraclavicular, or Inguinal Adenopathy Neurological: Cranial nerves II-XII grossly intact, Neuro grossly intact, Motor Exam 5/5 strength throughout, Sensory exam intact to light touch and pain, - - Slight tremor appreciated of the face Psych/Mental Status: Alert and oriented to time, place, person, mood and affect Vital Signs Temp Pulse Resp BP Pulse Ox 37.2 C 89 18 146/76 H 98 10/20/17 03:41 10/20/17 03:41 10/20/17 03:41 10/20/17 03:41 10/20/17 03:41 Oxygen Flow Rate 2 Oxygen Delivery Method Nasal Cannula Weight: 78.063 kg Body Mass Index (BMI) 29.5 Intake and Output for Last 24 Hours 10/18/17 10/19/17 10/20/17 23:59 23:59 23:59 Intake Total 1482 / 1482 Output Total 200 / 200 Balance 1282 / 1282 Laboratory Tests 10/19/17 10/19/17 10/19/17 09:30 09:30 09:30 WBC 10.1 RBC 4.69 Hgb 13.9 Hct 42.4 MCV 90.4 MCH 29.6 MCHC 32.8 RDW 13.5 RDW Differential 44.0 H Plt Count 209 MPV 8.5 Immature Gran % (Auto) 0.100 Neut % (Auto) 96.3 H Lymph % (Auto) 2.6 L Cloud % (Auto) 0.9 Eos % (Auto) 0.0 Baso % (Auto) 0.1 Absolute Neuts (auto) 9.8 H Absolute Lymphs (auto) 0.26 L Total Counted Not Reportable Specimen Type Sample Site pH Bicarbonate Actual POC Total CO2 Base Excess O2 Saturation ABG pCO2 ABG pO2 O2 Delivery Device Blood Gas Notified Whom Blood Gas Notified Time Sodium 140 Potassium 3.9 Chloride 105 Carbon Dioxide 27.0 Anion Gap 8 BUN 23 H Creatinine 1.04 H Estim Creat Clear Calc 38.50 Est GFR (MDRD) Af Amer 66 Est GFR (MDRD) Non-Af 54 L BUN/Creatinine Ratio 22.1 H Glucose 141 H Lactic Acid 1.0 Calcium 9.1 Total Bilirubin 0.30 AST 16 ALT 20 Alkaline Phosphatase 115 Total Protein 7.8 Albumin 3.5 Globulin 4.3 H Albumin/Globulin Ratio 0.8 L Urine Color Urine Clarity Urine pH Ur Specific [place] Urine Protein Urine Glucose (UA) Urine Ketones Urine Occult Blood Urine Nitrite Urine Bilirubin Urine Urobilinogen Ur Leukocyte Esterase Urine RBC Urine WBC Ur Squamous Epith Cells Urine Bacteria Urine Mucus 10/19/17 10/19/17 11:15 13:30 WBC RBC Hgb Hct MCV MCH MCHC RDW RDW Differential Plt Count MPV Immature Gran % (Auto) Neut % (Auto) Lymph % (Auto) Cloud % (Auto) Eos % (Auto) Baso % (Auto) Absolute Neuts (auto) Absolute Lymphs (auto) Total Counted Specimen Type ART Sample Site L Brachial pH 7.38 Bicarbonate Actual 26.7 H POC Total CO2 28 Base Excess 2 O2 Saturation 90 L ABG pCO2 44.8 ABG pO2 59 L O2 Delivery Device Room Air Blood Gas Notified Whom ED Blood Gas Notified Time 1328 Sodium Potassium Chloride Carbon Dioxide Anion Gap BUN Creatinine Estim Creat Clear Calc Est GFR (MDRD) Af Amer Est GFR (MDRD) Non-Af BUN/Creatinine Ratio Glucose Lactic Acid Calcium Total Bilirubin AST ALT Alkaline Phosphatase Total Protein Albumin Globulin Albumin/Globulin Ratio Urine Color Yellow Urine Clarity Sl. Cloudy Urine pH 6.0 Ur Specific [place] 1.015 Urine Protein 100 H Urine Glucose (UA) Normal Urine Ketones Negative Urine Occult Blood 150 H Urine Nitrite Negative Urine Bilirubin Negative Urine Urobilinogen Normal Ur Leukocyte Esterase 25 H Urine RBC 10-25 SEEN Urine WBC 0-5 SEEN Ur Squamous Epith Cells 0-5 SEEN Urine Bacteria 1+ Urine Mucus 0 SEEN Clinical Impression(s) from Imaging Studies Abdomen/Pelvis CT 10/19/17 08:58 IMPRESSION: 1. Scattered fluid-filled loops of small bowel with scattered gaseous distention. No evidence of small bowel obstruction at this time. 2. Chronic diverticulosis without acute diverticulitis 3. Nonobstructing left nephrolith. Exophytic left renal cyst. 4. Nonvisualized appendix Electronically Signed: Oren Monk DO at 10:35 EST Tel , Service support , Chest X-Ray 10/19/17 08:58 IMPRESSION: New small left pleural effusion with underlying infiltration and/or atelectasis. Electronically Signed: Fan Benavidez MD at 9:26 EST Tel [phone], Service support , Chest CT 10/19/17 16:56 IMPRESSION: Unchanged right diaphragmatic hernia. Compressive atelectasis right lower lung. Pulmonary venous hypertension. Small bowel ileus versus partial obstruction. Large posterior right lower thoracic subcutaneous lipoma. Electronically Signed: Lennycheli Franklinmichael at 18:11 EST , Service support , Assessment/Plan Active and Suspected Problems Gastroenteritis (Acute) Hypoxia (Acute) RECOMMENDATIONS: 1. Obtain echocardiogram 2. Walking oximetry prior to discharge 3. Supplemental oxygen if indicated on discharge 4. Close outpatient follow-up with pulmonary office for PFT 5. Avoid BiPAP or positive pressure ventilation of possible 6. Likely okay to discontinue antibiotics from my perspective IMPRESSIONS: 1. Hypoxia Patient with a relatively substantial right-sided diaphragmatic hernia. Need to verify history, but it sounds like this has been evaluated in the past. No imaging is available for review at this time that shows chronicity. Clinical suspicion for restrictive lung disease secondary to this hernia leading to decreased saturations from atelectasis of a compressive nature. Patient does have a substantially dilated pulmonary artery on CT scan. Recommend obtaining echocardiogram for evaluation of pulmonary artery pressures in comparison to echo in January with an RVSP of 29. Correction of diaphragmatic hernia would be a substantial surgery and patient may not elect to complete it, even if indicated by saturations. Amount of atelectasis may improve using incentive spirometer and with decreased bowel gas after cessation of gastroenteritis. 2. Acute gastroenteritis Probable viral in etiology. Patient does have family members with similar type illnesses. Labs are currently pending for this morning. Defer to hospitalist for acute management. Increased bowel gas would worsen underlying hernia. Code Visit Inpatient E&M: 85849 Init Hosp L2
[2017-10-20 07:59] LABS: Anion Gap 6 (5-15); BUN 22 mg/dL (7-18); BUN/Creat Ratio 29.8 RATIO (10-20); Calcium,Total 8.4 mg/dL (8.5-10.1); Chloride 109 mmol/L (98-107); Creatinine, Serum 0.74 mg/dL (0.55-1.02); EST Glomerular Filtration Rate 81 mL/min (>60); Est Glom Filt Rate - Afr Amer 98 mL/min (>60); Estimated Creatinine Clearance 40.04 ml/min; Glucose 85 mg/dL (70-110); Potassium 3.7 mmol/L (3.5-5.1); Sodium Level 141 mmol/L (136-145)
[2017-10-20 09:40] VITALS: BP 154/81; PULSE 93; RESP 20; TEMP 37.2; O2SAT 92
--- NOTE | 2017-10-20 10:11 | NURSING ---
0930 pt walked out to desk to ask questions, pox 90 when walking no distress noted. back to room and answered questions. pox 92% on ra. pt back to bed. Linsey Monae RN
[2017-10-20] MEDS: LORazepam 1 MG Tablet PO (10:37)
[2017-10-20] MEDS: Minoxidil 2.5 MG Tablet PO (10:38)
[2017-10-20] MEDS: Losartan Potassium 100 MG Tablet PO (10:38)
[2017-10-20] MEDS: cloNIDine HCl 0.1 MG Tablet 0.05 MG PO (11:13)
[2017-10-20] MEDS: FLUoxetine 20 MG Capsule 60 MG PO (11:14)
--- NOTE | 2017-10-20 11:43 | PCM.DC ---
- Discharge Diagnoses Current Active Problems: Current Active and Chronic Problems Gastroenteritis (Acute) Hypoxia (Acute) You will use the following diet at home:: Cardiac, Other - BRAT diet, advance to normal diet slowly as tolerated. Your food should be the consistency of: Regular Your liquids should be the consistency of: Regular/Thin Discharge Activity: Return to Normal Activity Allergies/Adverse Reactions: Allergies No Known Allergies Allergy (Verified 03/17/17 10:29) Medications to take at Discharge Clonidine HCl 0.05 tab PO BID 03/17/17 Fluoxetine [Prozac] 60 mg PO DAILY 03/17/17 Furosemide [Lasix] 20 mg PO DAILY 03/17/17 Lorazepam [Ativan] 1 mg PO BID 03/17/17 Losartan Potassium 100 mg PO DAILY 03/17/17 Magnesium Oxide [Mag-Ox 400] 400 mg PO QHS 03/17/17 Pantoprazole Sodium [Protonix] 20 mg PO DAILY 03/17/17 Pramipexole Di-HCl [Pramipexole Dihydrochloride] 0.75 mg PO QHS 03/17/17 Simvastatin 40 mg PO QHS 03/17/17 Spironolactone 25 mg PO DAILY 03/17/17 Dicyclomine HCl 20 mg PO DAILY PRN 10/19/17 Minoxidil [Loniten] 2.5 mg PO BID 10/19/17 Ondansetron HCl [Zofran] 4 mg PO Q8H PRN 10/19/17 Primary Care Physician: Jose L Valenzuela MD [Primary Care Provider] - Please follow up with your Primary Care Physician in: 1-2 weeks Please Follow Up With: General Surgery - You should follow up with the general surgeon that evaluated you for your hernia When: 2 weeks Please Follow Up With: Cresencio Barkley MD When: 2 weeks Proposed Discharge Date: 10/19/17
--- NOTE | 2017-10-20 13:26 | PCM.DC.SUM ---
Discharge Date and Diagnosis - Problem List Patient Problems: Active and Suspected Problems Gastroenteritis (Acute) Hypoxia (Acute) Date of Admission: 10/19/17 Date of Discharge: 10/20/17 - Primary Discharge Diagnosis Active and Suspected Problems Gastroenteritis (Acute) - viral Hypoxia (Acute) - 2/2 diaphragmatic hernia htn depression hld - Secondary Discharge Diagnosis Chronic Problems Hx of appendectomy (Chronic) Benign essential HTN (Chronic) Depression (Chronic) HLD (hyperlipidemia) (Chronic) Overweight (BMI 25.0-29.9) (Chronic) CAD (coronary artery disease) (Chronic) Diabetes mellitus, type II (Chronic) Traumatic closed nondisplaced fracture of neck of left femur (Chronic) Status post closed reduction with internal fixation (Chronic) left femur 06/22, Dr Spears, [facility] Tinea unguium (Chronic) Dyskinesia, tardive (Chronic) Takatsuki syndrome (Chronic) Brain aneurysm (Chronic) Takotsubo syndrome (Chronic) Hypertension (Chronic) Hospital Course and Treatment Imaging Results: 10/20/17 07:55 Echo Complete [ECHO] Routine - report pending CT/Chest without Contrast IMPRESSION: Unchanged right diaphragmatic hernia. Compressive atelectasis right lower lung. Pulmonary venous hypertension. Small bowel ileus versus partial obstruction. Large posterior right lower thoracic subcutaneous lipoma. CT/Abdomen/Pelvis without Cont IMPRESSION: 1. Scattered fluid-filled loops of small bowel with scattered gaseous distention. No evidence of small bowel obstruction at this time. 2. Chronic diverticulosis without acute diverticulitis 3. Nonobstructing left nephrolith. Exophytic left renal cyst. 4. Nonvisualized appendix RAD/Chest 1 View (Portable) IMPRESSION: New small left pleural effusion with underlying infiltration and/or atelectasis. Filippo - pulm Operations: None Procedures: 2-D Echocardiogram Summary of Care Provided: Physical exam on day of discharge: General: Resting comfortably NAD Psych: A/Ox3 normal affect HEENT: [place] AT NC Neck: Supple NT CV: RRR no m/t/r/g/h Resp: CTA Abd: [id number] Soft NT no guarding or rigidity Ext: DP2+= no edema Skin: W/D normal turgor Lymph/Heme: No active bleeding or adenopathy Neuro: CN2-12 intact Hospital course: The patient is a 76 year old F who presented to the emergency room complaining of nausea vomiting, diarrhea, abdominal pain diffusely across her abdomen that had significantly worsened the night prior however have been chronic over the past month. Her son had similar symptoms and they both went to their PCP and were told he had viral gastroenteritis. She presented to the emergency room and was found to have hypoxia on room air with a pulse ox had 88%. She is placed on oxygen. She had a CT of her abdomen which did not reveal any acute abdominal abnormalities. Chest x-ray demonstrated atelectasis. She is felt to have acute viral gastroenteritis and hypoxia of unclear etiology. She is placed on IV fluids as she appeared somewhat dehydrated, made n.p.o., given supportive care. She is able to be weaned off oxygen. She had no shortness of breath further. She was seen by pulmonology who felt that the patients hypoxia was secondary to a large diaphragmatic hernia treating to compressive atelectasis in her right lung. She had acute CT of her chest which did not reveal any infiltrates, did show enlarged pulmonary veins so an echocardiogram was done to assess for underlying pulmonary hypertension. Report this is pending at this time. She had no further oxygen needs and was ambulated in the [place] with no oxygen needs. She had been seen in the past by surgeon for diaphragmatic hernia but no surgery was indicated at that time per the patient. At this time we advised her to follow-up with pulmonology for hypoxia, and also follow-up with the surgeon that evaluated her prior for the diaphragmatic hernia. Her diet was advanced and was tolerated well. She had no further abdominal symptoms, no nausea, vomiting, or diarrhea after admission. She was discharged home in stable condition to follow-up with the above and with her PCP in 1-2 weeks. This patient was seen by Cesar Fernandez PA-C under the supervision of Doctor Hansen. [] Discharge Diet: Low fat/ Low Cholesterol, 4000 mg Sodium Diet, Bananas, Rice, Applesauce and [place] Discharge Activity: Return to Normal Activity Home Medications: Medications to take at Discharge Clonidine HCl 0.05 tab PO BID 03/17/17 Fluoxetine [Prozac] 60 mg PO DAILY 03/17/17 Furosemide [Lasix] 20 mg PO DAILY 03/17/17 Lorazepam [Ativan] 1 mg PO BID 03/17/17 Losartan Potassium 100 mg PO DAILY 03/17/17 Magnesium Oxide [Mag-Ox 400] 400 mg PO QHS 03/17/17 Pantoprazole Sodium [Protonix] 20 mg PO DAILY 03/17/17 Pramipexole Di-HCl [Pramipexole Dihydrochloride] 0.75 mg PO QHS 03/17/17 Simvastatin 40 mg PO QHS 03/17/17 Spironolactone 25 mg PO DAILY 03/17/17 Dicyclomine HCl 20 mg PO DAILY PRN 10/19/17 Minoxidil [Loniten] 2.5 mg PO BID 10/19/17 Ondansetron HCl [Zofran] 4 mg PO Q8H PRN 10/19/17 Primary Care Physician: Jose L Valenzuela MD [Primary Care Provider] - Please follow up with your Primary Care Physician in: 1-2 weeks Please Follow Up With: General Surgery - You should follow up with the general surgeon that evaluated you for your hernia When: 2 weeks Please Follow Up With: Cresencio Barkley MD When: 2 weeks Disposition: Home Minutes spent on discharge:: 40 Patient Condition:: Stable Meaningful Use Info Meaningful Use Diagnoses (Choose all that apply): None applicable
--- NOTE | 2017-10-20 13:34 | DS.PCM_ITS ---
Addendum entered and electronically signed by CARMEN Espinal 10/20/17 14:52: Code Visit Echo did show moderate pulmonary htn with RVSP 48 mmHg - increased from 29 on 2016. EF 75%, stage 1 diastolic dysfunction Original Note: Discharge Date and Diagnosis - Problem List Patient Problems: Active and Suspected Problems Gastroenteritis (Acute) Hypoxia (Acute) Date of Admission: 10/19/17 Date of Discharge: 10/20/17 - Primary Discharge Diagnosis Active and Suspected Problems Gastroenteritis (Acute) - viral Hypoxia (Acute) - 2/2 diaphragmatic hernia htn depression hld - Secondary Discharge Diagnosis Chronic Problems Hx of appendectomy (Chronic) Benign essential HTN (Chronic) Depression (Chronic) HLD (hyperlipidemia) (Chronic) Overweight (BMI 25.0-29.9) (Chronic) CAD (coronary artery disease) (Chronic) Diabetes mellitus, type II (Chronic) Traumatic closed nondisplaced fracture of neck of left femur (Chronic) Status post closed reduction with internal fixation (Chronic) left femur 06/22, Dr Spears, [facility] Tinea unguium (Chronic) Dyskinesia, tardive (Chronic) Takatsuki syndrome (Chronic) Brain aneurysm (Chronic) Takotsubo syndrome (Chronic) Hypertension (Chronic) Hospital Course and Treatment Imaging Results: 10/20/17 07:55 Echo Complete [ECHO] Routine - report pending CT/Chest without Contrast IMPRESSION: Unchanged right diaphragmatic hernia. Compressive atelectasis right lower lung. Pulmonary venous hypertension. Small bowel ileus versus partial obstruction. Large posterior right lower thoracic subcutaneous lipoma. CT/Abdomen/Pelvis without Cont IMPRESSION: 1. Scattered fluid-filled loops of small bowel with scattered gaseous distention. No evidence of small bowel obstruction at this time. 2. Chronic diverticulosis without acute diverticulitis 3. Nonobstructing left nephrolith. Exophytic left renal cyst. 4. Nonvisualized appendix RAD/Chest 1 View (Portable) IMPRESSION: New small left pleural effusion with underlying infiltration and/or atelectasis. Filippo - pulm Operations: None Procedures: 2-D Echocardiogram Summary of Care Provided: Physical exam on day of discharge: General: Resting comfortably NAD Psych: A/Ox3 normal affect HEENT: PEARRLA AT NC Neck: Supple NT CV: RRR no m/t/r/g/h Resp: CTA Abd: [id number] Soft NT no guarding or rigidity Ext: DP2+= no edema Skin: W/D normal turgor Lymph/Heme: No active bleeding or adenopathy Neuro: CN2-12 intact Hospital course: The patient is a 76 year old F who presented to the emergency room complaining of nausea vomiting, diarrhea, abdominal pain diffusely across her abdomen that had significantly worsened the night prior however have been chronic over the past month. Her son had similar symptoms and they both went to their PCP and were told he had viral gastroenteritis. She presented to the emergency room and was found to have hypoxia on room air with a pulse ox had 88%. She is placed on oxygen. She had a CT of her abdomen which did not reveal any acute abdominal abnormalities. Chest x-ray demonstrated atelectasis. She is felt to have acute viral gastroenteritis and hypoxia of unclear etiology. She is placed on IV fluids as she appeared somewhat dehydrated, made n.p.o., given supportive care. She is able to be weaned off oxygen. She had no shortness of breath further. She was seen by pulmonology who felt that the patients hypoxia was secondary to a large diaphragmatic hernia treating to compressive atelectasis in her right lung. She had acute CT of her chest which did not reveal any infiltrates, did show enlarged pulmonary veins so an echocardiogram was done to assess for underlying pulmonary hypertension. Report this is pending at this time. She had no further oxygen needs and was ambulated in the [place] with no oxygen needs. She had been seen in the past by surgeon for diaphragmatic hernia but no surgery was indicated at that time per the patient. At this time we advised her to follow-up with pulmonology for hypoxia, and also follow-up with the surgeon that evaluated her prior for the diaphragmatic hernia. Her diet was advanced and was tolerated well. She had no further abdominal symptoms, no nausea, vomiting, or diarrhea after admission. She was discharged home in stable condition to follow-up with the above and with her PCP in 1-2 weeks. This patient was seen by Cesar Fernandez PA-C under the supervision of Doctor Hansen. [] Discharge Diet: Low fat/ Low Cholesterol, 4000 mg Sodium Diet, Bananas, Rice, Applesauce and [place] Discharge Activity: Return to Normal Activity Home Medications: Medications to take at Discharge Clonidine HCl 0.05 tab PO BID 03/17/17 Fluoxetine [Prozac] 60 mg PO DAILY 03/17/17 Furosemide [Lasix] 20 mg PO DAILY 03/17/17 Lorazepam [Ativan] 1 mg PO BID 03/17/17 Losartan Potassium 100 mg PO DAILY 03/17/17 Magnesium Oxide [Mag-Ox 400] 400 mg PO QHS 03/17/17 Pantoprazole Sodium [Protonix] 20 mg PO DAILY 03/17/17 Pramipexole Di-HCl [Pramipexole Dihydrochloride] 0.75 mg PO QHS 03/17/17 Simvastatin 40 mg PO QHS 03/17/17 Spironolactone 25 mg PO DAILY 03/17/17 Dicyclomine HCl 20 mg PO DAILY PRN 10/19/17 Minoxidil [Loniten] 2.5 mg PO BID 10/19/17 Ondansetron HCl [Zofran] 4 mg PO Q8H PRN 10/19/17 Primary Care Physician: Jose L Valenzuela MD [Primary Care Provider] - Please follow up with your Primary Care Physician in: 1-2 weeks Please Follow Up With: General Surgery - You should follow up with the general surgeon that evaluated you for your hernia When: 2 weeks Please Follow Up With: Cresencio Barkley MD When: 2 weeks Disposition: Home Minutes spent on discharge:: 40 Patient Condition:: Stable Meaningful Use Info Meaningful Use Diagnoses (Choose all that apply): None applicable
[2017-10-20 14:00] VITALS: BP 150/82; PULSE 90; RESP 20; TEMP 36.6; O2SAT 92
[2017-10-20 16:00] VITALS: BP 160/70; PULSE 80; RESP 20; TEMP 36.6; O2SAT 94
== END 2017-10-20 16:16 | disposition home or self-care (01) ==
LOC: ED 16:22 → MS3 16:24
PROVIDERS: Admitting Provider Internal Medicine; Emergency Provider Emergency Medicine; Family Provider Family Medicine; PCP Family Medicine; Visit Provider Internal Medicine
DX: A08.4 Viral intestinal infection, unspecified (principal); E11.40 Type 2 diabetes mellitus with diabetic neuropathy, unspecified; I27.20 Pulmonary hypertension, unspecified; K44.9 Diaphragmatic hernia without obstruction or gangrene; I25.10 Atherosclerotic heart disease of native coronary artery without angina pectoris; I11.0 Hypertensive heart disease with heart failure; E78.5 Hyperlipidemia, unspecified; F32.9 Major depressive disorder, single episode, unspecified; B35.1 Tinea unguium; R09.02 Hypoxemia; R25.1 Tremor, unspecified; Z79.899 Other long term (current) drug therapy; Z96.642 Presence of left artificial hip joint; I50.9 Heart failure, unspecified
CPT/HCPCS: 36415; 36600; 71045; 71250; 74176; 80048; 80053; 81001; 82803; 83605; 85025; 87040; 93005; 93306; 94640; 96361; 96365; 96372; 96375; 96376; 97802; 99218; 99284; J7030; J7040; A4216; G0378; J2405; J3490

== ENCOUNTER 2017-10-25 23:25 | Observation (INO) | payer MEDICARE, SELFPAY ==
[2017-10-25 23:28] VITALS: BP 189/105; PULSE 88; RESP 32; TEMP 36.6; O2SAT 90; BMI 31.1
--- NOTE | 2017-10-25 23:29 | NURSING ---
CALLED FOR EKG PER RN REQUEST, PULLED OLD EKG'S FOR
--- NOTE | 2017-10-25 23:40 | EKG12_ITS ---
Test Reason : CP Blood Pressure : / mmHG Vent. Rate : 089 BPM Atrial Rate : 089 BPM P-R Int : 266 ms QRS Dur : 082 ms QT Int : 388 ms P-R-T Axes : 085 012 051 degrees QTc Int : 472 ms Sinus rhythm with 1st degree A-V block Nonspecific ST and T wave abnormality Abnormal ECG Confirmed by NAVIN ARRIOLA, JUAN C ([id number]), assistant editor JUDIE SUAREZ ([id number]) on 10/29/2017 3:28:58 PM Referred By: Jose L Valenzuela Confirmed By:JUAN C HOLDEN MD
[2017-10-25] MEDS: Ondansetron 4 MG/2 ML Vial IV (23:45)
[2017-10-25] MEDS: HYDROmorphone 1 MG/ML Syringe 0.5 MG IV (23:45)
[2017-10-25 23:49] LABS: Absolute Lymphocyte Count 4.37 X10^3/ul (0.83-4.51); Absolute Neutrophil Count 7.8 X10^3/uL (2.0-7.7); Basophil# 0.05 X10^3/uL; Basophil% 0.4 % (0-1); Eosinophil# 0.39 X10^3/uL; Eosinophils% 2.9 % (0-5); Hematocrit 39.2 % (37-47); Hemoglobin 13.3 g/dl (12.0-15.0); Lymphocyte # 4.37 X10^3/ul (4.0); Lymphocyte % 32.9 % (19-41); Mean Corp Hgb Conc 33.9 g/gl (32-36); Mean Corpuscular Hgb 29.9 pg (27.0-32.0); Mean Corpuscular Volume 88.1 fL (81-99); Mean Platelet Vol. 8.5 fl (6.2-12.0); Monocyte# 0.59 X10^3/uL; Monocyte% 4.4 % (0-10); Neutrophil % 58.9 % (47-70); POSITIVE COUNT NO; POSITIVE DIFFERENTIAL NO; POSITIVE MORPHOLOGY NO; Platelet Count 281 K/mm3 (150-450); RBC Distribution Width CV 13.5 % (11.6-14.6); RBC Distribution Width SD 42.8 fl (35.1-43.9); Red Blood Count 4.45 M/mm3 (4.2-5.4); White Blood Count 13.3 K/mm3 (4.4-11.0)
[2017-10-26] VITALS (11 sets, daily range): BP systolic 135–170; BP diastolic 64–95; PULSE 85–99; RESP 15–32; TEMP 36.6–37.1; O2SAT 95–98; BMI 29.5
[2017-10-26 00:06] LABS: ALB/GLOB Ratio 0.8 RATIO (0.9-2.4); AST(SGOT) 27 U/L (15-37); Alanine Aminotransfer ALT/SGPT 29 U/L (13-56); Albumin, Serum 3.6 g/dL (3.2-5.0); Alkaline Phosphatase 111 U/L (45-117); Anion Gap 8 (5-15); BUN 14 mg/dL (7-18); BUN/Creat Ratio 15.6 RATIO (10-20); Calcium,Total 9.3 mg/dL (8.5-10.1); Chloride 103 mmol/L (98-107); EST Glomerular Filtration Rate 65 mL/min (>60); Est Glom Filt Rate - Afr Amer 78 mL/min (>60); Estimated Creatinine Clearance 43.77 ml/min; Globulin 4.3 g/dL (2.2-4.2); Glucose 146 mg/dL (70-110); Lipase 483 U/L (73-393); Potassium 3.5 mmol/L (3.5-5.1); Protein, Total 7.9 g/dL (6.4-8.2); Sodium Level 139 mmol/L (136-145)
[2017-10-26] MEDS: HYDROmorphone 1 MG/ML Syringe 0.5 MG IV (00:35)
--- NOTE | 2017-10-26 00:37 | ED.RN ---
BS REASSESSED WHILE LAYING SUPINE. ACTIVE X4. PT LESS RESTLESS AFTER MEDICATION. HAS HAD THREE EPISODES OF HYPOXIA. IMPROVED WITH 4L O2 VIA NC. SON AT BEDSIDE.
[2017-10-26 00:43] LABS: Prothrombin Time (Protime)PT. 12.6 SECONDS (11.7-14.9)
[2017-10-26 00:44] LABS: Partial Thromboplast Time 24.2 Seconds (24.1-36.2)
[2017-10-26 00:49] LABS: Bacteria 0 SEEN /hpf (None Seen); Mucous, Urine 0 SEEN /hpf (<or=2+); Red Blood Cells-Urine 0 SEEN /hpf (0-5); Squamous Epithelial Cells - UA 0 SEEN /hpf (5-10); White Blood Cells 0 SEEN /hpf (0-5)
[2017-10-26 00:51] LABS: Color, Urine Yellow (Yellow); Glucose, Dipstick Normal (Normal); Ketone-Dipstick Negative (Negative); Leukocyte Esterase-Dipstick 25 /ul (Negative); Nitrite-Dipstick Negative (Negative); Occult Blood-Urine 10 /ul (Negative); Protein-Dipstick 30 mg/dl (Negative); Urine Bilirubin Dipstick Negative (Negative); Urine Clarity Clear (Clear); Urine Urobilinogen Normal (Normal); Urine pH 6.5 (5.0 - 8.0)
[2017-10-26 01:15] LABS: Lactic Acid 0.6 mmol/L (0.4-2.0)
--- NOTE | 2017-10-26 03:06 | ED.VISSUMM ---
- ER Visit Summary Date of Service: 10/26/17 Chief Complaint: Abdominal pain History of Present Illness: The patient is a 77 F with abdominal pain today for several hours. The pain has been continuous. The pain is mostly over her upper abdomen. She has also been having nausea. She had some diarrhea last week and a recent flu infection. The patient has a history of coronary disease, hypertension, diabetes, hyperlipidemia, brain aneurysm, hyponatremia, depression, appendectomy, hip fracture, and diaphragmatic hernia. Physical Examination: Patient is hypertensive 189/105. Otherwise vital signs are unremarkable. Her pulse ox is in the 90-92% range on room air. Patient appears very uncomfortable and is tearful. Heart regular. Lungs show diminished sounds throughout. Abdomen is diffusely tender with some mild guarding. Skin appears normal in color. She is alert and oriented. Test Results: EKG showed sinus rhythm at a rate of 89. There are nonspecific ST and T-wave changes. No sign of acute ischemia or infarction. Lab work shows a white count of 13.3. Glucose 146. Lipase 43. Hepatic panel normal. INR and PTT normal. Troponin normal. Lactate normal. CT shows a left renal mass concerning for carcinoma. There was no PE or dissection noted. She does have a diaphragmatic hernia and a uterine fibroid is seen on her prior imaging. Emergency Department Course and Treatment: Patient had fluids and pain medicine while awaiting results. Her symptoms and her vital signs improved. Patient had borderline low oxygen levels. This is not new. This has been attributed to atelectasis from her diaphragmatic hernia. Her CT shows a diaphragmatic hernia. This is not new. She saw a surgeon in [place] and at this time she is not a surgical candidate. Based on her imaging and symptoms. She was not aware of the renal mass. Patient had fluid hydration and additional pain medicine. She also received Phenergan. Her symptoms and vital signs improved. She was requesting discharge. Her son had suggested that she needs to be admitted for therapy to get her strength back and so that she can get hydrated and have time to eat. The patient did not want this. I spoke with the hospitalist who saw her the last time she was admitted. The diaphragmatic hernia seems to be a stable issue. Again she is not a surgical candidate at this time. She was seen by pulmonology. She was also discussed with her PCP during the previous visit. The hospitalist did not feel that any of her symptoms or findings could be improved with hospitalization. I suggested that she may need to go to a nursing or rehab facility. The patient refused. Patient was treated with additional fluids. She had Phenergan. She was unable to ambulate. I called the hospitalist for admission. Treatment Plan: As above Disposition: Admission Impression: 1. Abdominal pain 2. Nausea 3. Left renal mass concerning for renal cell carcinoma This note was generated with [employer] dictation software. It may contain incorrect words, spelling, and punctuation that were not noted in review of the chart prior to signing ED Disposition - Plan for ED Patient: Chief Complaint: Abd Pain Referrals: oJse L Valenzuela MD [Primary Care Provider] -
--- NOTE | 2017-10-26 03:23 | NURSING ---
ATTEMPTED TO WALK THE PT WITH A WALKER AND ANOTHER NURSE. THE PT WAS DIZZY, UNSTEADY, AND ONLY ABLE TO TAKE A COUPLE OF BREATHS. PT PULSE OX DROPPED TO 88-89% WHEN ATTEMPTING TO WALK. PT MADE A COUPLE OF STEPS ME AND THE OTHER NURSE WERE CONCERNED WITH HER FALLING. ASSISTED HER WITH THE BSC.
--- NOTE | 2017-10-26 04:48 | PCM.HP.STD ---
Problem List (1) Generalized weakness Status: Acute (2) Abdominal pain Status: Acute Qualifiers: Abdominal location: lower abdomen, unspecified Qualified Code(s): R10.30 - Lower abdominal pain, unspecified History of Present Illness Date of Admission: 10/26/17 Chief Complaint: Generalized weakness, generalized abdominal pain The patient is a 77 year old F who was seen in the emergency room at [facility] with a chief complaint of abdominal pain which she states worsened on 10/25/17, she has a history of chronic abdominal pain and a large diaphragmatic hernia on the right side. Patient was recently hospitalized here at [facility] for gastroenteritis and hypoxia, she returned home the next day. During that admission I cared for the patient and I talked with the patient's primary care physician who confirms that the patient has a history of chronic abdominal pain and overuse of antinausea medications. Patient was seen in consultation and [place] by a surgeon for repair of her diaphragmatic hernia in the past but it was decided that postop complications would be too great to repair the diaphragmatic hernia. At the time of triage last night in the emergency room, patient complained of upper abdominal pain-when I examined her this morning she stated that the abdominal pain was lower abdominal pain. Workup in the emergency room included a CTA of the abdomen which showed the known diaphragmatic hernia on the right, there is also a lesion on the left upper kidney that was suspicious for carcinoma. Pancreas appeared unremarkable. Patient also had a CT of the chest which was unremarkable except for the presence of the right sided diaphragmatic hernia. Labs were obtained, white blood cell count was slightly elevated at 13.3 and lipase was slightly elevated at 483. Patient was given IV pain medications and antinausea medications in the emergency room. Patient's son was with the patient during her emergency room visit, he was told that she could be discharged to home but unfortunately the patient was not able to get up and ambulate. I went in and talk with both the patient and her son and told her that she would most probably need to go to a skilled care facility for rehab, I have my doubts that she is able to take care of herself at home and her son does not live with her. Her son became upset that I mentioned a chcf, he felt that if she went to a chcf she would take it as being a permanent placement-I insisted that this would not be the case. Patient would consider going to TCU-she has been there before for rehab. Patient will be placed in observation status for generalized weakness, I do not feel she has pancreatitis, I do not feel her abdominal pain is out of the ordinary as she has frequent abdominal pain. I believe the patient also has a psychological overlay and fixates on her abdominal pain and seeks nausea and pain meds. Past Medical History Past Medical History (Chronic Problems): Chronic Problems Hx of appendectomy (Chronic) Benign essential HTN (Chronic) Depression (Chronic) HLD (hyperlipidemia) (Chronic) Overweight (BMI 25.0-29.9) (Chronic) CAD (coronary artery disease) (Chronic) Diabetes mellitus, type II (Chronic) Traumatic closed nondisplaced fracture of neck of left femur (Chronic) Status post closed reduction with internal fixation (Chronic) left femur 06/22, Dr Spears, [facility] Tinea unguium (Chronic) Dyskinesia, tardive (Chronic) Takatsuki syndrome (Chronic) Brain aneurysm (Chronic) Takotsubo syndrome (Chronic) Hypertension (Chronic) Allergies No Known Allergies Allergy (Verified 03/17/17 10:29) Home Medications: Ambulatory Orders Medication Instructions Recorded Clonidine HCl 0.05 tab PO BID 03/17/17 Fluoxetine [Prozac] 60 mg PO DAILY 03/17/17 Furosemide [Lasix] 20 mg PO DAILY 03/17/17 Lorazepam [Ativan] 1 mg PO BID 03/17/17 Losartan Potassium 100 mg PO DAILY 03/17/17 Magnesium Oxide [Mag-Ox 400] 400 mg PO QHS 03/17/17 Pantoprazole Sodium [Protonix] 20 mg PO DAILY 03/17/17 Pramipexole Di-HCl [Pramipexole 0.75 mg PO QHS 03/17/17 Dihydrochloride] Simvastatin 40 mg PO QHS 03/17/17 Spironolactone 25 mg PO DAILY 03/17/17 Dicyclomine HCl 20 mg PO DAILY PRN 10/19/17 Minoxidil [Loniten] 2.5 mg PO BID 10/19/17 Surgical History: appendectomy, cholecystectomy, herniorrhaphy, tonsillectomy, - - 06/22/15 left hip CRIF Psychiatric History: Anxiety, Depression FAMILY COURT COUNSELLOR History: No pertinent FAMILY COURT COUNSELLOR history Lives: Alone Smoking Status: Never smoker Tobacco Use: Non-smoker Alcohol: None Drugs: None - *Family History Maternal History Items: Cancer - age 55, colon Paternal History Items: Cancer - in 's metastatic prostate Offspring History Items: - - 2 children Review of Systems Constitutional: Reports: Weakness. Denies: Anorexia, Chills, Fever, Night Sweats, Malaise, Weight Change, Fatigue Eyes: Denies: Blurred vision, Cataracts, Conjunctivae Inflammation, Double vision, Drainage HEENT: Denies: Difficulty Swallowing, Dysphasia, Ear Pain, Eye Pain, Hearing Changes, Nasal bleeding, Nasal Congestion, Post Nasal Drip Cardiovascular: Denies: Chest Pain, Claudication, Chest Pressure, Chest Tightness, Edema, Heaviness, Palpitations, Paroxysmal Noc. Dyspnea, Syncope Respiratory: Denies: Cough, Hemoptysis, Pleuritic Pain, Shortness of Breath, Shortness of breath at rest, Shortness of breath upon exertion, Sputum production, Wheezing Gastrointestinal: Reports: Abdominal Pain. Denies: Constipation, Diarrhea, Hematemesis, Hematochezia, Nausea, Melena, Vomiting Genitourinary: Denies: Dysuria, Frequency, Hematuria, Hesitancy, Nocturia, Retention, Urgency Gynecological: Denies: Breast symptoms Musculoskeletal: Denies: Back Pain, Foot Pain, Hand Pain, Joint Pain, Joint stiffness, Joint swelling, Joint Tenderness, Leg Pain Skin: Denies: Dryness, Jaundice, Pruritis, Rash Neurological: Denies: Blurred vision, Double vision, Slurred speech, Difficulty swallowing, Focal weakness, Headaches, Numbness, Tingling Psychiatric: Denies: Anxiety, Depression, Homicidal Ideations, Suicidal Ideations Endocrine: Denies: Change in Body Habitus, Heat/ Cold Intolerance, Polydipsia, Polyuria Hematologic/ Lymphatic: Denies: Adenopathy, Anemia, Easy Bruising, Easy Bleeding, Petechiae, Purpura VTE Information - Inpt Only VTE Present on Admission: No VTE Mechan Device Prophylaxis: None VTE Pharm Prophylaxis ordered?: Yes Patient Problems: Active and Suspected Problems Generalized weakness (Acute) Abdominal pain (Acute) - Physical Exam General: Alert, Oriented x3, Cooperative, No apparent distress, Well developed, Well nourished HEENT: Atraumatic, PERRLA, EOMI, Normocephalic Oral: Moist Mucosa Neck: Supple, No JVD, Negative Carotid Bruits, No Nuchal Rigidity, Trachea Midline, Thyroid Normal Size and Texture Lungs: Clear to auscultation, Normal air movement, No rhonchi, No wheeze, No rales Cardiovascular: Regular rate, Regular Rhythm, Normal S1, Normal S2, No murmurs, No Ectopic Activity, PMI Normal, No rub noted, No Gallop Abdomen: Bowel Sounds Present, Soft, Non Tender, Non-Distended, No hernias noted Extremities: No clubbing, No cyanosis, Capillary Refill Less than 3 Seconds, Edema - Generalized lower leg edema is noted bilaterally which is +2-+3 mm Skin: No rashes, No breakdown Musculoskeletal: No Tenderness to Palpation of Joints or Extremities Neurological: Cranial nerves II-XII grossly intact, Neuro grossly intact, Sensory exam intact to light touch and pain Psych/Mental Status: Appropriate, Flat Affect Vital Signs Temp Pulse Resp BP Pulse Ox 98 F 95 17 165/77 H 97 10/25/17 23:28 10/26/17 04:18 10/26/17 04:18 10/26/17 04:18 10/26/17 04:18 Oxygen Delivery Method Room Air Assessment/Plan Active and Suspected Problems Generalized weakness (Acute) Abdominal pain (Acute) #1 generalized weakness-probably secondary to deconditioning and possibly the effects of IV pain medications and anti-emetics administered in the emergency room-patient will be placed in observation status on MedSurg, she will be evaluated by PT and OT to see if she qualifies for further skilled care #2 acute on chronic abdominal pain-I do not feel that this is significant in this patient as she has frequent episodes of abdominal discomfort. I feel that the administration of IV Phenergan should be kept to a minimum while the patient is hospitalized, I have written for IV Zofran for nausea. Patient is on Bentyl once a day, I have stopped this medication #3 elevated lipase-I do not feel this is significant, lipase will be rechecked #4 lesion left upper kidney-possibly renal cancer, this will need to be rechecked with a contrasted CAT scan #5 anxiety disorder #6 generalized depression #7 tardive dyskinesia from previous psych meds ] #8 pulmonary hypertension-at the patient's last hospitalization, she was seen by pulmonary medicine and an echocardiogram was obtained which showed elevated pulmonary artery pressures, she is due to see pulmonary medicine and follow-up, it is a feeling of pulmonary medicine that the patient's right diaphragmatic hernia is contributing to the pulmonary hypertension or she may have underlying sleep apnea. #9 large right diaphragmatic hernia-again, in a patient this age, surgical repair would be extremely risky, patient and patient's son have decided not to have this repaired at this time after talking with a surgeon in [place]. Code Visit OBSV E&M: 97136 Initial observation care L3
--- NOTE | 2017-10-26 05:01 | HP.PCM_ITS ---
Problem List (1) Generalized weakness Status: Acute (2) Abdominal pain Status: Acute Qualifiers: Abdominal location: lower abdomen, unspecified Qualified Code(s): R10.30 - Lower abdominal pain, unspecified History of Present Illness Date of Admission: 10/26/17 Chief Complaint: Generalized weakness, generalized abdominal pain The patient is a 77 year old F who was seen in the emergency room at [facility] with a chief complaint of abdominal pain which she states worsened on 10/25/17, she has a history of chronic abdominal pain and a large diaphragmatic hernia on the right side. Patient was recently hospitalized here at [facility] for gastroenteritis and hypoxia, she returned home the next day. During that admission I cared for the patient and I talked with the patient's primary care physician who confirms that the patient has a history of chronic abdominal pain and overuse of antinausea medications. Patient was seen in consultation and [place] by a surgeon for repair of her diaphragmatic hernia in the past but it was decided that postop complications would be too great to repair the diaphragmatic hernia. At the time of triage last night in the emergency room, patient complained of upper abdominal pain- when I examined her this morning she stated that the abdominal pain was lower abdominal pain. Workup in the emergency room included a CTA of the abdomen which showed the known diaphragmatic hernia on the right, there is also a lesion on the left upper kidney that was suspicious for carcinoma. Pancreas appeared unremarkable. Patient also had a CT of the chest which was unremarkable except for the presence of the right sided diaphragmatic hernia. Labs were obtained, white blood cell count was slightly elevated at 13.3 and lipase was slightly elevated at 483. Patient was given IV pain medications and antinausea medications in the emergency room. Patient's son was with the patient during her emergency room visit, he was told that she could be discharged to home but unfortunately the patient was not able to get up and ambulate. I went in and talk with both the patient and her son and told her that she would most probably need to go to a skilled care facility for rehab, I have my doubts that she is able to take care of herself at home and her son does not live with her. Her son became upset that I mentioned a longterm, he felt that if she went to a longterm she would take it as being a permanent placement-I insisted that this would not be the case. Patient would consider going to TCU-she has been there before for rehab. Patient will be placed in observation status for generalized weakness, I do not feel she has pancreatitis , I do not feel her abdominal pain is out of the ordinary as she has frequent abdominal pain. I believe the patient also has a psychological overlay and fixates on her abdominal pain and seeks nausea and pain meds. Past Medical History Past Medical History (Chronic Problems): Chronic Problems Hx of appendectomy (Chronic) Benign essential HTN (Chronic) Depression (Chronic) HLD (hyperlipidemia) (Chronic) Overweight (BMI 25.0-29.9) (Chronic) CAD (coronary artery disease) (Chronic) Diabetes mellitus, type II (Chronic) Traumatic closed nondisplaced fracture of neck of left femur (Chronic) Status post closed reduction with internal fixation (Chronic) left femur 06/22, Dr Spears, [facility] Tinea unguium (Chronic) Dyskinesia, tardive (Chronic) Takatsuki syndrome (Chronic) Brain aneurysm (Chronic) Takotsubo syndrome (Chronic) Hypertension (Chronic) Allergies No Known Allergies Allergy (Verified 03/17/17 10:29) Home Medications: Ambulatory Orders Medication Instructions Recorded Clonidine HCl 0.05 tab PO BID 03/17/17 Fluoxetine [Prozac] 60 mg PO DAILY 03/17/17 Furosemide [Lasix] 20 mg PO DAILY 03/17/17 Lorazepam [Ativan] 1 mg PO BID 03/17/17 Losartan Potassium 100 mg PO DAILY 03/17/17 Magnesium Oxide [Mag-Ox 400] 400 mg PO QHS 03/17/17 Pantoprazole Sodium [Protonix] 20 mg PO DAILY 03/17/17 Pramipexole Di-HCl [Pramipexole 0.75 mg PO QHS 03/17/17 Dihydrochloride] Simvastatin 40 mg PO QHS 03/17/17 Spironolactone 25 mg PO DAILY 03/17/17 Dicyclomine HCl 20 mg PO DAILY PRN 10/19/17 Minoxidil [Loniten] 2.5 mg PO BID 10/19/17 Surgical History: appendectomy, cholecystectomy, herniorrhaphy, tonsillectomy, - - 06/22/15 left hip CRIF Psychiatric History: Anxiety, Depression COMMUNITY REPRESENTATIVE History: No pertinent COMMUNITY REPRESENTATIVE history Lives: Alone Smoking Status: Never smoker Tobacco Use: Non-smoker Alcohol: None Drugs: None - *Family History Maternal History Items: Cancer - age 55, colon Paternal History Items: Cancer - in 's metastatic prostate Offspring History Items: - - 2 children Review of Systems Constitutional: Reports: Weakness. Denies: Anorexia, Chills, Fever, Night Sweats, Malaise, Weight Change, Fatigue Eyes: Denies: Blurred vision, Cataracts, Conjunctivae Inflammation, Double vision, Drainage HEENT: Denies: Difficulty Swallowing, Dysphasia, Ear Pain, Eye Pain, Hearing Changes, Nasal bleeding, Nasal Congestion, Post Nasal Drip Cardiovascular: Denies: Chest Pain, Claudication, Chest Pressure, Chest Tightness, Edema, Heaviness, Palpitations, Paroxysmal Noc. Dyspnea, Syncope Respiratory: Denies: Cough, Hemoptysis, Pleuritic Pain, Shortness of Breath, Shortness of breath at rest, Shortness of breath upon exertion, Sputum production, Wheezing Gastrointestinal: Reports: Abdominal Pain. Denies: Constipation, Diarrhea, Hematemesis, Hematochezia, Nausea, Melena, Vomiting Genitourinary: Denies: Dysuria, Frequency, Hematuria, Hesitancy, Nocturia, Retention, Urgency Gynecological: Denies: Breast symptoms Musculoskeletal: Denies: Back Pain, Foot Pain, Hand Pain, Joint Pain, Joint stiffness, Joint swelling, Joint Tenderness, Leg Pain Skin: Denies: Dryness, Jaundice, Pruritis, Rash Neurological: Denies: Blurred vision, Double vision, Slurred speech, Difficulty swallowing, Focal weakness, Headaches, Numbness, Tingling Psychiatric: Denies: Anxiety, Depression, Homicidal Ideations, Suicidal Ideations Endocrine: Denies: Change in Body Habitus, Heat/ Cold Intolerance, Polydipsia, Polyuria Hematologic/ Lymphatic: Denies: Adenopathy, Anemia, Easy Bruising, Easy Bleeding , Petechiae, Purpura VTE Information - Inpt Only VTE Present on Admission: No VTE Mechan Device Prophylaxis: None VTE Pharm Prophylaxis ordered?: Yes Patient Problems: Active and Suspected Problems Generalized weakness (Acute) Abdominal pain (Acute) - Physical Exam General: Alert, Oriented x3, Cooperative, No apparent distress, Well developed, Well nourished HEENT: Atraumatic, PERRLA, EOMI, Normocephalic Oral: Moist Mucosa Neck: Supple, No JVD, Negative Carotid Bruits, No Nuchal Rigidity, Trachea Midline, Thyroid Normal Size and Texture Lungs: Clear to auscultation, Normal air movement, No rhonchi, No wheeze, No rales Cardiovascular: Regular rate, Regular Rhythm, Normal S1, Normal S2, No murmurs, No Ectopic Activity, PMI Normal, No rub noted, No Gallop Abdomen: Bowel Sounds Present, Soft, Non Tender, Non-Distended, No hernias noted Extremities: No clubbing, No cyanosis, Capillary Refill Less than 3 Seconds, Edema - Generalized lower leg edema is noted bilaterally which is +2-+3 mm Skin: No rashes, No breakdown Musculoskeletal: No Tenderness to Palpation of Joints or Extremities Neurological: Cranial nerves II-XII grossly intact, Neuro grossly intact, Sensory exam intact to light touch and pain Psych/Mental Status: Appropriate, Flat Affect Vital Signs Temp Pulse Resp BP Pulse Ox 98 F 95 17 165/77 H 97 10/25/17 23:28 10/26/17 04:18 10/26/17 04:18 10/26/17 04:18 10/26/17 04:18 Oxygen Delivery Method Room Air Assessment/Plan Active and Suspected Problems Generalized weakness (Acute) Abdominal pain (Acute) #1 generalized weakness-probably secondary to deconditioning and possibly the effects of IV pain medications and anti-emetics administered in the emergency room-patient will be placed in observation status on MedSurg, she will be evaluated by PT and OT to see if she qualifies for further skilled care #2 acute on chronic abdominal pain-I do not feel that this is significant in this patient as she has frequent episodes of abdominal discomfort. I feel that the administration of IV Phenergan should be kept to a minimum while the patient is hospitalized, I have written for IV Zofran for nausea. Patient is on Bentyl once a day, I have stopped this medication #3 elevated lipase-I do not feel this is significant, lipase will be rechecked #4 lesion left upper kidney-possibly renal cancer, this will need to be rechecked with a contrasted CAT scan #5 anxiety disorder #6 generalized depression #7 tardive dyskinesia from previous psych meds ] #8 pulmonary hypertension-at the patient's last hospitalization, she was seen by pulmonary medicine and an echocardiogram was obtained which showed elevated pulmonary artery pressures, she is due to see pulmonary medicine and follow-up, it is a feeling of pulmonary medicine that the patient's right diaphragmatic hernia is contributing to the pulmonary hypertension or she may have underlying sleep apnea. #9 large right diaphragmatic hernia-again, in a patient this age, surgical repair would be extremely risky, patient and patient's son have decided not to have this repaired at this time after talking with a surgeon in [place]. Code Visit OBSV E&M: 75299 Initial observation care L3
[2017-10-26] MEDS: 0.9% Normal Saline 1,000 ML 75 ML IV (06:33)
--- NOTE | 2017-10-26 07:46 | CASEMGMT ---
Social Work Note Reviewed chart and pt is in with weakness. Prefers TCU for placement. PT/OT ordered, but have not seen yet. Will need before pre-cert can be submitted. Placed call to Sima with TCU who states that she would have a bed today or tomorrow depending when pt is able to discharge. Will submit for pre-cert and anticipate being able to obtain this date, and will confirm with physician when pt may discharge. SW to continue to follow and assist with discharge planning. Plan: TCU pending pre-cert. AYDIN HarrisW
[2017-10-26] MEDS: Ondansetron 4 MG/2 ML Vial IV ×2 (08:10→14:45)
[2017-10-26 09:38] LABS: Lipase 201 U/L (73-393)
--- NOTE | 2017-10-26 09:58 | CASEMGMT ---
Social Work Note Faxed clinicals to Mandy at [facility] and will await a phone call confirming determination regarding placement. SW to continue to follow and assist with discharge planning. Deisy Kingsley, [employer]TER
[2017-10-26] MEDS: LORazepam 1 MG Tablet PO (10:33)
[2017-10-26] MEDS: Spironolactone 25 MG Tablet PO (10:38)
[2017-10-26] MEDS: cloNIDine HCl 0.1 MG Tablet 0.05 MG PO (10:38)
[2017-10-26] MEDS: Losartan Potassium 100 MG Tablet PO (10:38)
[2017-10-26] MEDS: Furosemide 20 MG Tablet PO (10:38)
[2017-10-26] MEDS: Minoxidil 2.5 MG Tablet PO (10:39)
[2017-10-26] MEDS: FLUoxetine 20 MG Capsule 60 MG PO (10:39)
--- NOTE | 2017-10-26 10:47 | PCM.CONS.GEN ---
Reason for Consult Date of Consultation: 10/26/17 History of Present Illness: The patient is a 77 year old F admitted for diffuse abdominal pain. Patient did have a CT abdomen pelvis done which did show an anterior diaphragmatic hernia with colon and small bowel up in the left chest. On previous CTs of the abdomen and pelvis patient did also have this hernia in 2011 and 2013 with no additional small bowel or colon only fat however in February 2017 there is also colon and small bowel in the left chest through the hernia. Patient mainly states she has abdominal pain ever however when she points it is more in the right upper quadrant. She states she originally came in due to chest pain and thought she may be having a heart attack. She states the chest pain has resolved she still does have some shortness of breath with exertion. Patient previously saw Dr. Bar (CT Surgeon) at [facility] after she had that CAT scan back in February 2017; however she was not having any symptoms of this hernia at that time thus there is no plan for surgery. Patient was able to recall much about the previous appointment for this hernia however I did talk with the son, Kalia, who did confirm this information. Patient states she has had this abdominal pain for last couple months and she has had a decreased appetite with it as well occasional nausea patient states she has been passing gas and having bowel movements. Past Medical History Past Medical History (Chronic Problems): Chronic Problems Hx of appendectomy (Chronic) Benign essential HTN (Chronic) Depression (Chronic) HLD (hyperlipidemia) (Chronic) Overweight (BMI 25.0-29.9) (Chronic) CAD (coronary artery disease) (Chronic) Diabetes mellitus, type II (Chronic) Traumatic closed nondisplaced fracture of neck of left femur (Chronic) Status post closed reduction with internal fixation (Chronic) left femur 06/22, Dr Spears, [facility] Tinea unguium (Chronic) Dyskinesia, tardive (Chronic) Takatsuki syndrome (Chronic) Brain aneurysm (Chronic) Takotsubo syndrome (Chronic) Hypertension (Chronic) Allergies No Known Allergies Allergy (Verified 03/17/17 10:29) Home Medications: Ambulatory Orders Medication Instructions Recorded Clonidine HCl 0.05 tab PO BID 03/17/17 Fluoxetine [Prozac] 60 mg PO DAILY 03/17/17 Furosemide [Lasix] 20 mg PO DAILY 03/17/17 Lorazepam [Ativan] 1 mg PO BID 03/17/17 Losartan Potassium 100 mg PO DAILY 03/17/17 Magnesium Oxide [Mag-Ox 400] 400 mg PO QHS 03/17/17 Pantoprazole Sodium [Protonix] 20 mg PO DAILY 03/17/17 Pramipexole Di-HCl [Pramipexole 0.75 mg PO QHS 03/17/17 Dihydrochloride] Simvastatin 40 mg PO QHS 03/17/17 Spironolactone 25 mg PO DAILY 03/17/17 Dicyclomine HCl 20 mg PO DAILY PRN 10/19/17 Minoxidil [Loniten] 2.5 mg PO BID 10/19/17 Surgical History: appendectomy, cholecystectomy, herniorrhaphy, tonsillectomy, - - 06/22/15 left hip CRIF Psychiatric History: Anxiety, Depression INSTITUTIONAL COOK History: No pertinent INSTITUTIONAL COOK history Lives: Alone Smoking Status: Never smoker Tobacco Use: Non-smoker Alcohol: None Drugs: None - *Family History Maternal History Items: Cancer - age 55, colon Paternal History Items: Cancer - in metastatic prostate Offspring History Items: - - 2 children Review of Systems Constitutional: Reports: Anorexia. Denies: Chills, Fever HEENT: Denies: Difficulty Swallowing Cardiovascular: Denies: Chest Pain - Currently Respiratory: Denies: Shortness of breath at rest Gastrointestinal: Reports: Abdominal Pain, Nausea. Denies: Constipation Genitourinary: Denies: Dysuria Skin: Reports: Rash Neurological: Denies: Blurred vision Psychiatric: Reports: Anxiety. Denies: Depression Hematologic/ Lymphatic: Denies: Easy Bleeding - Physical Exam General: Alert, Oriented x3, Cooperative Lungs: Normal air movement Cardiovascular: Regular rate Abdomen: Soft, Non-Distended, Passing Flatus, Tender - Mainly in the right upper quadrant and epigastric region Extremities: No clubbing, No cyanosis Lymphatic: No Cervical, Supraclavicular, or Inguinal Adenopathy Vital Signs Temp Pulse Resp BP Pulse Ox 98.5 F 98 20 H 142/78 H 98 10/26/17 10:36 10/26/17 10:36 10/26/17 10:36 10/26/17 10:36 10/26/17 10:36 Oxygen Flow Rate 4 Oxygen Delivery Method Nasal Cannula Weight: 172 lb 0.004 oz Body Mass Index (BMI) 29.5 Intake and Output for Last 24 Hours 10/24/17 10/25/17 10/26/17 23:59 23:59 23:59 Intake Total 123 / 123 Output Total 150 / 150 Balance -27 / -27 Laboratory Tests Past 24 Hrs 10/26/17 09:15 Lipase 201 Assessment/Plan 77-year-old female with diffuse abdominal pain, CT showing large anterior diaphragmatic hernia with colon and small bowel in the left chest. 1. On exams patient's abdominal pain is mostly in the right upper quadrant greater than left upper quadrant and no real abdominal pain in the lower abdomen. This is likely consistent with pain due to the hernia. This is an anterior diaphragmatic hernia which would need to see cardiothoracic surgery for repair. Patient previously was seen by Dr. Bar at [facility] about a little over a year ago for this but patient was not having symptoms at this time. Also discussed with the son Kalia per the patient's request and he suggested going back to [place] if possible for transfer versus [facility] or the [facility] as they did like Dr. Bar. Did also discuss the patient and her son that there was a lesion on the left kidney which would also require further workup and on CT was concerning for renal cell carcinoma. Patient's no further questions at this time. Also discussed with Dr. Bolaños. Estefania Trindiad M.D. Pager: [phone] [facility] [address] [place] [address], [address] [place] [id number] Office: [phone] Code Visit Inpatient E&M: 16755 Init Hosp L1
--- NOTE | 2017-10-26 10:52 | CON.PCM_ITS ---
Reason for Consult Date of Consultation: 10/26/17 History of Present Illness: The patient is a 77 year old F admitted for diffuse abdominal pain. Patient did have a CT abdomen pelvis done which did show an anterior diaphragmatic hernia with colon and small bowel up in the left chest. On previous CTs of the abdomen and pelvis patient did also have this hernia in 2011 and 2013 with no additional small bowel or colon only fat however in February 2017 there is also colon and small bowel in the left chest through the hernia. Patient mainly states she has abdominal pain ever however when she points it is more in the right upper quadrant. She states she originally came in due to chest pain and thought she may be having a heart attack. She states the chest pain has resolved she still does have some shortness of breath with exertion. Patient previously saw Dr. Bar (CT Surgeon) at [facility] after she had that CAT scan back in February 2017; however she was not having any symptoms of this hernia at that time thus there is no plan for surgery. Patient was able to recall much about the previous appointment for this hernia however I did talk with the son, Kalia, who did confirm this information. Patient states she has had this abdominal pain for last couple months and she has had a decreased appetite with it as well occasional nausea patient states she has been passing gas and having bowel movements. Past Medical History Past Medical History (Chronic Problems): Chronic Problems Hx of appendectomy (Chronic) Benign essential HTN (Chronic) Depression (Chronic) HLD (hyperlipidemia) (Chronic) Overweight (BMI 25.0-29.9) (Chronic) CAD (coronary artery disease) (Chronic) Diabetes mellitus, type II (Chronic) Traumatic closed nondisplaced fracture of neck of left femur (Chronic) Status post closed reduction with internal fixation (Chronic) left femur 06/22, Dr Spears, [facility] Tinea unguium (Chronic) Dyskinesia, tardive (Chronic) Takatsuki syndrome (Chronic) Brain aneurysm (Chronic) Takotsubo syndrome (Chronic) Hypertension (Chronic) Allergies No Known Allergies Allergy (Verified 03/17/17 10:29) Home Medications: Ambulatory Orders Medication Instructions Recorded Clonidine HCl 0.05 tab PO BID 03/17/17 Fluoxetine [Prozac] 60 mg PO DAILY 03/17/17 Furosemide [Lasix] 20 mg PO DAILY 03/17/17 Lorazepam [Ativan] 1 mg PO BID 03/17/17 Losartan Potassium 100 mg PO DAILY 03/17/17 Magnesium Oxide [Mag-Ox 400] 400 mg PO QHS 03/17/17 Pantoprazole Sodium [Protonix] 20 mg PO DAILY 03/17/17 Pramipexole Di-HCl [Pramipexole 0.75 mg PO QHS 03/17/17 Dihydrochloride] Simvastatin 40 mg PO QHS 03/17/17 Spironolactone 25 mg PO DAILY 03/17/17 Dicyclomine HCl 20 mg PO DAILY PRN 10/19/17 Minoxidil [Loniten] 2.5 mg PO BID 10/19/17 Surgical History: appendectomy, cholecystectomy, herniorrhaphy, tonsillectomy, - - 06/22/15 left hip CRIF Psychiatric History: Anxiety, Depression 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 Denies: Chills, Fever HEENT: Denies: Difficulty Swallowing Cardiovascular: Denies: Chest Pain - Currently Respiratory: Denies: Shortness of breath at rest Gastrointestinal: Reports: Abdominal Pain, Nausea. Denies: Constipation Genitourinary: Denies: Dysuria Skin: Reports: Rash Neurological: Denies: Blurred vision Psychiatric: Reports: Anxiety. Denies: Depression Hematologic/ Lymphatic: Denies: Easy Bleeding - Physical Exam General: Alert, Oriented x3, Cooperative Lungs: Normal air movement Cardiovascular: Regular rate Abdomen: Soft, Non-Distended, Passing Flatus, Tender - Mainly in the right upper quadrant and epigastric region Extremities: No clubbing, No cyanosis Lymphatic: No Cervical, Supraclavicular, or Inguinal Adenopathy Vital Signs Temp Pulse Resp BP Pulse Ox 98.5 F 98 20 H 142/78 H 98 10/26/17 10:36 10/26/17 10:36 10/26/17 10:36 10/26/17 10:36 10/26/17 10:36 Oxygen Flow Rate 4 Oxygen Delivery Method Nasal Cannula Weight: 172 lb 0.004 oz Body Mass Index (BMI) 29.5 Intake and Output for Last 24 Hours 10/24/17 10/25/17 10/26/17 23:59 23:59 23:59 Intake Total 123 / 123 Output Total 150 / 150 Balance -27 / -27 Laboratory Tests Past 24 Hrs 10/26/17 09:15 Lipase 201 Assessment/Plan 77-year-old female with diffuse abdominal pain, CT showing large anterior diaphragmatic hernia with colon and small bowel in the left chest. 1. On exams patient's abdominal pain is mostly in the right upper quadrant greater than left upper quadrant and no real abdominal pain in the lower abdomen. This is likely consistent with pain due to the hernia. This is an anterior diaphragmatic hernia which would need to see cardiothoracic surgery for repair. Patient previously was seen by Dr. Bar at [facility] about a little over a year ago for this but patient was not having symptoms at this time. Also discussed with the son Kalia per the patient's request and he suggested going back to [place] if possible for transfer versus [facility] or the [facility] as they did like Dr. Bar. Did also discuss the patient and her son that there was a lesion on the left kidney which would also require further workup and on CT was concerning for renal cell carcinoma. Patient's no further questions at this time. Also discussed with Dr. Bolaños. Estefania Trinidad M.D. Pager: [phone] [facility] [address] [place] [address], [address] [place] [id number] Office: [phone] Code Visit Inpatient E&M: 23194 Init Hosp L1
--- NOTE | 2017-10-26 12:56 | PCM.PROGNOTE ---
Patient Problems: Active and Suspected Problems Generalized weakness (Acute) Abdominal pain (Acute) Subjective: Patient seen and examined. Complains of abdominal pain with mild nausea. No emesis. Abdominal pain is not necessarily new but has increased in the past week. Patient has been seen and [place] by surgeon for repair of diaphragmatic hernia in the past which was considered to complicated for their team to perform. Patient is aware of need for transfer for cardiothoracic surgeon to further evaluate her hernia. Patient is agreeable. She denies other complaints. - Physical Exam General: Alert, Oriented x3, Cooperative, No apparent distress HEENT: Atraumatic, PERRLA, EOMI, Normocephalic Oral: Dry Mucosa Neck: Supple, No JVD, Negative Carotid Bruits Lungs: Clear to auscultation, Normal air movement Cardiovascular: Regular rate, Regular Rhythm, Normal S1, Normal S2, No murmurs Abdomen: Bowel Sounds Present, Soft, Non-Distended, Tender - Bilateral upper abdomen Extremities: No edema, Capillary Refill Less than 3 Seconds Skin: No rashes, No breakdown Musculoskeletal: No Tenderness to Palpation of Joints or Extremities Neurological: Cranial nerves II-XII grossly intact, Neuro grossly intact Psych/Mental Status: Normal Affect, Appropriate Vital Signs Temp Pulse Resp BP Pulse Ox 98.5 F 98 20 H 142/78 H 97 10/26/17 10:36 10/26/17 10:36 10/26/17 10:36 10/26/17 10:36 10/26/17 11:11 Oxygen Flow Rate 4 Oxygen Delivery Method Nasal Cannula Weight: 78.018 kg Body Mass Index (BMI) 29.5 Intake and Output for Last 24 Hours 10/24/17 10/25/17 10/26/17 23:59 23:59 23:59 Intake Total 123 / 123 Output Total 150 / 150 Balance -27 / -27 Laboratory Tests Past 24 Hrs 10/26/17 09:15 Lipase 201 Assessment/Plan Active and Suspected Problems Generalized weakness (Acute) Abdominal pain (Acute) Patient is a 77-year-old female admitted 10/26/17 due to generalized weakness and abdominal pain. She has a past medical history of hypertension, hyperlipidemia, depression, CAD, type 2 diabetes mellitus, tardive dyskinesia. 1. Acute on chronic abdominal pain-secondary to large right diaphragmatic hernia as demonstrated on CT of abdomen. Surgery evaluated patient and recommended transfer for cardiothoracic surgery for repair. Patient was previously seen at [facility] but was told intervention was not able to be completed at their facility due to complicated case. [facility] willing to accept patient. Awaiting bed for transfer. CT of abdomen also showed lesion on the left kidney which is suspicious for renal cell carcinoma. This will also need further evaluated. IV morphine for pain. Continue IV famotidine. Zofran for nausea. Keep n.p.o. with exception of medications and ice chips. 2. Generalized weakness-suspect secondary to poor oral intake as a result of #1. 3. Elevated lipase, mild-resolved. 4. Depression-continue home medication regimen. 5. Hypertension-stable, continue home regimen. 6. Hyperlipidemia-continue statin. 7. CAD-continue statin. Not on aspirin or beta-carlton. 8. Type 2 diabetes mellitus-not on home regimen. Previous A1c in 2015 5.5%. 9. Tardive dyskinesia-secondary to previous psychiatric medications. DVT prophylaxis-heparin subcu. This patient was seen by MAXIMILIANO Pendleton under the supervision of Dr. Bolaños.
--- NOTE | 2017-10-26 13:07 | PN_ITS ---
Addendum entered and electronically signed by MAXIMILIANO Pendleton 10/26/17 13:16: Code Visit Additional diagnosis: Acute hypoxia-chest CTA completed showed no evidence of acute pulmonary embolism, bibasilar atelectasis, large anterior diaphragmatic hernia as noted above. Suspect large hernia is contributing to acute hypoxia. Recent echocardiogram showed an estimated ejection fraction of 75%, stage I diastolic dysfunction, RVSP estimated to be 48, mild pulmonary hypertension. Continue oxygen supplementation to maintain O2 at or above 90%. Original Note: Patient Problems: Active and Suspected Problems Generalized weakness (Acute) Abdominal pain (Acute) Subjective: Patient seen and examined. Complains of abdominal pain with mild nausea. No emesis. Abdominal pain is not necessarily new but has increased in the past week. Patient has been seen and [place] by surgeon for repair of diaphragmatic hernia in the past which was considered to complicated for their team to perform. Patient is aware of need for transfer for cardiothoracic surgeon to further evaluate her hernia. Patient is agreeable. She denies other complaints. - Physical Exam General: Alert, Oriented x3, Cooperative, No apparent distress HEENT: Atraumatic, PERRLA, EOMI, Normocephalic Oral: Dry Mucosa Neck: Supple, No JVD, Negative Carotid Bruits Lungs: Clear to auscultation, Normal air movement Cardiovascular: Regular rate, Regular Rhythm, Normal S1, Normal S2, No murmurs Abdomen: Bowel Sounds Present, Soft, Non-Distended, Tender - Bilateral upper abdomen Extremities: No edema, Capillary Refill Less than 3 Seconds Skin: No rashes, No breakdown Musculoskeletal: No Tenderness to Palpation of Joints or Extremities Neurological: Cranial nerves II-XII grossly intact, Neuro grossly intact Psych/Mental Status: Normal Affect, Appropriate Vital Signs Temp Pulse Resp BP Pulse Ox 98.5 F 98 20 H 142/78 H 97 10/26/17 10:36 10/26/17 10:36 10/26/17 10:36 10/26/17 10:36 10/26/17 11:11 Oxygen Flow Rate 4 Oxygen Delivery Method Nasal Cannula Weight: 78.018 kg Body Mass Index (BMI) 29.5 Intake and Output for Last 24 Hours 10/24/17 10/25/17 10/26/17 23:59 23:59 23:59 Intake Total 123 / 123 Output Total 150 / 150 Balance -27 / -27 Laboratory Tests Past 24 Hrs 10/26/17 09:15 Lipase 201 Assessment/Plan Active and Suspected Problems Generalized weakness (Acute) Abdominal pain (Acute) Patient is a 77-year-old female admitted 10/26/17 due to generalized weakness and abdominal pain. She has a past medical history of hypertension, hyperlipidemia , depression, CAD, type 2 diabetes mellitus, tardive dyskinesia. 1. Acute on chronic abdominal pain-secondary to large right diaphragmatic hernia as demonstrated on CT of abdomen. Surgery evaluated patient and recommended transfer for cardiothoracic surgery for repair. Patient was previously seen at [facility] but was told intervention was not able to be completed at their facility due to complicated case. [facility] willing to accept patient. Awaiting bed for transfer. CT of abdomen also showed lesion on the left kidney which is suspicious for renal cell carcinoma. This will also need further evaluated. IV morphine for pain. Continue IV famotidine. Zofran for nausea. Keep n.p.o. with exception of medications and ice chips. 2. Generalized weakness-suspect secondary to poor oral intake as a result of # 1. 3. Elevated lipase, mild-resolved. 4. Depression-continue home medication regimen. 5. Hypertension-stable, continue home regimen. 6. Hyperlipidemia-continue statin. 7. CAD-continue statin. Not on aspirin or beta-carlton. 8. Type 2 diabetes mellitus-not on home regimen. Previous A1c in 2014 5.5%. 9. Tardive dyskinesia-secondary to previous psychiatric medications. DVT prophylaxis-heparin subcu. This patient was seen by MAXIMILIANO Pendleton under the supervision of Dr. Bolaños.
--- NOTE | 2017-10-26 13:08 | PCM.DC.SUM ---
Discharge Date and Diagnosis Date of Admission: 10/26/17 Date of Discharge: 10/26/17 - Primary Discharge Diagnosis Active and Suspected Problems 1. Acute on chronic abdominal pain-secondary to large anterior diaphragmatic hernia containing multiple distal small bowel loops, transverse colon, and mesenteric vessels and fat. 2. New finding of 1.7 cm lesion of the left upper renal pole concerning for renal cell carcinoma 3. Acute hypoxia - Secondary Discharge Diagnosis Chronic Problems Hx of appendectomy (Chronic) Benign essential HTN (Chronic) Depression (Chronic) HLD (hyperlipidemia) (Chronic) Overweight (BMI 25.0-29.9) (Chronic) CAD (coronary artery disease) (Chronic) Diabetes mellitus, type II (Chronic) Traumatic closed nondisplaced fracture of neck of left femur (Chronic) Status post closed reduction with internal fixation (Chronic) left femur 06/22, Dr Spears, [facility] Tinea unguium (Chronic) Dyskinesia, tardive (Chronic) Takatsuki syndrome (Chronic) Brain aneurysm (Chronic) Takotsubo syndrome (Chronic) Hypertension (Chronic) Hospital Course and Treatment Imaging Results: Diagnostic Data Chest CTA 10/26/17 23:42 IMPRESSION: 1. No evidence of acute pulmonary embolism or aortic pathology. 2. Bibasilar atelectasis. 3. Large anterior diaphragmatic hernia with small bowel loops, colonic segments and mesenteric fat radiating into the right anterior thoracic cavity. Electronically Signed: Richard Garcia MD at 1:50 EST Tel , Service support , Abdomen/Pelvis CTA 10/26/17 23:43 IMPRESSION: 1. Large anterior diaphragmatic hernia containing multiple distal small bowel loops, the transverse colon, and mesenteric vessels and fat. 2. 1.7 cm enhancing exophytic lesion arising off the posterior left upper renal pole, concerning for renal cell carcinoma. 3. Nonobstructing 4 mm mid left renal calculus. 4. Simple appearing right renal cyst. 5. Calcified fibroid arising off the uterine fundus. Electronically Signed: Richard Garcia MD at 2:00 EST Tel , Service support , Dr. Trinidad- Surgery Dr. Urena- Urology Operations: None Procedures: None Summary of Care Provided: Patient is a 77-year-old female admitted 10/26/17 due to generalized weakness and abdominal pain. She has a past medical history of hypertension, hyperlipidemia, depression, CAD, type 2 diabetes mellitus, tardive dyskinesia. 1. Acute on chronic abdominal pain-secondary to large right diaphragmatic hernia as demonstrated on CT of abdomen. CT of abdomen showed large anterior diaphragmatic hernia containing multiple distal small bowel loops, transverse colon, and mesenteric vessels and fat. Surgery evaluated patient and recommended transfer for cardiothoracic surgery for repair. Patient was previously seen at [facility] but was told intervention was not able to be completed at their facility due to complicated case. [facility] willing to accept patient and patient is stable for transfer. CT of abdomen also showed lesion on the left kidney which is suspicious for renal cell carcinoma. This will also need further evaluated. 2. Generalized weakness-suspect secondary to poor oral intake as a result of #1. 3. Elevated lipase, mild-resolved. 4. Depression-continue home medication regimen. 5. Hypertension-stable, continue home regimen. 6. Hyperlipidemia-continue statin. 7. CAD-continue statin. Not on aspirin or beta-carlton. 8. Type 2 diabetes mellitus-not on home regimen. Previous A1c in 2015 5.5%. 9. Tardive dyskinesia-secondary to previous psychiatric medications. 10. Acute hypoxia-chest CTA completed showed no evidence of acute pulmonary embolism, bibasilar atelectasis, large anterior diaphragmatic hernia as noted above. Suspect large hernia is contributing to acute hypoxia. Recent echocardiogram showed an estimated ejection fraction of 75%, stage I diastolic dysfunction, RVSP estimated to be 48, mild pulmonary hypertension. Continue oxygen supplementation. General: Alert, Oriented x3, Cooperative, No apparent distress HEENT: Atraumatic, PERRLA, EOMI, Normocephalic Oral: Dry Mucosa Neck: Supple, No JVD, Negative Carotid Bruits Lungs: Clear to auscultation, Normal air movement Cardiovascular: Regular rate, Regular Rhythm, Normal S1, Normal S2, No murmurs Abdomen: Bowel Sounds Present, Soft, Non-Distended, Tender - Bilateral upper abdomen Extremities: No edema, Capillary Refill Less than 3 Seconds Skin: No rashes, No breakdown Musculoskeletal: No Tenderness to Palpation of Joints or Extremities Neurological: Cranial nerves II-XII grossly intact, Neuro grossly intact Psych/Mental Status: Normal Affect, Appropriate Patient seen and examined prior to discharge. Physical assessment as noted above. Patient stable for transfer to acute care facility. This patient was seen by MAXIMILIANO Pendleton under the supervision of Dr. Bolaños. Home Medications: Medications to take at Discharge Clonidine HCl 0.05 tab PO BID 03/17/17 Fluoxetine [Prozac] 60 mg PO DAILY 03/17/17 Furosemide [Lasix] 20 mg PO DAILY 03/17/17 Lorazepam [Ativan] 1 mg PO BID 03/17/17 Losartan Potassium 100 mg PO DAILY 03/17/17 Magnesium Oxide [Mag-Ox 400] 400 mg PO QHS 03/17/17 Pantoprazole Sodium [Protonix] 20 mg PO DAILY 03/17/17 Pramipexole Di-HCl [Pramipexole Dihydrochloride] 0.75 mg PO QHS 03/17/17 Simvastatin 40 mg PO QHS 03/17/17 Spironolactone 25 mg PO DAILY 03/17/17 Dicyclomine HCl 20 mg PO DAILY PRN 10/19/17 Minoxidil [Loniten] 2.5 mg PO BID 10/19/17 Primary Care Physician: Jose L Valenzuela MD [Primary Care Provider] - Disposition: Acute care Hospital Minutes spent on discharge:: 35 Patient Condition:: Stable Meaningful Use Info Meaningful Use Diagnoses (Choose all that apply): None applicable
--- NOTE | 2017-10-26 13:15 | DS.PCM_ITS ---
Discharge Date and Diagnosis Date of Admission: 10/26/17 Date of Discharge: 10/26/17 - Primary Discharge Diagnosis Active and Suspected Problems 1. Acute on chronic abdominal pain-secondary to large anterior diaphragmatic hernia containing multiple distal small bowel loops, transverse colon, and mesenteric vessels and fat. 2. New finding of 1.7 cm lesion of the left upper renal pole concerning for renal cell carcinoma 3. Acute hypoxia - Secondary Discharge Diagnosis Chronic Problems Hx of appendectomy (Chronic) Benign essential HTN (Chronic) Depression (Chronic) HLD (hyperlipidemia) (Chronic) Overweight (BMI 25.0-29.9) (Chronic) CAD (coronary artery disease) (Chronic) Diabetes mellitus, type II (Chronic) Traumatic closed nondisplaced fracture of neck of left femur (Chronic) Status post closed reduction with internal fixation (Chronic) left femur 06/22, Dr Spears, [facility] Tinea unguium (Chronic) Dyskinesia, tardive (Chronic) Takatsuki syndrome (Chronic) Brain aneurysm (Chronic) Takotsubo syndrome (Chronic) Hypertension (Chronic) Hospital Course and Treatment Imaging Results: Diagnostic Data Chest CTA 10/26/17 23:42 IMPRESSION: 1. No evidence of acute pulmonary embolism or aortic pathology. 2. Bibasilar atelectasis. 3. Large anterior diaphragmatic hernia with small bowel loops, colonic segments and mesenteric fat radiating into the right anterior thoracic cavity. Electronically Signed: Richard Garcia MD at 1:50 EST Tel , Service support , Abdomen/Pelvis CTA 10/26/17 23:43 IMPRESSION: 1. Large anterior diaphragmatic hernia containing multiple distal small bowel loops, the transverse colon, and mesenteric vessels and fat. 2. 1.7 cm enhancing exophytic lesion arising off the posterior left upper renal pole, concerning for renal cell carcinoma. 3. Nonobstructing 4 mm mid left renal calculus. 4. Simple appearing right renal cyst. 5. Calcified fibroid arising off the uterine fundus. Electronically Signed: Richard Garcia MD at 2:00 EST Tel , Service support , Dr. Trinidad- Surgery Dr. Urena- Urology Operations: None Procedures: None Summary of Care Provided: Patient is a 77-year-old female admitted 10/26/17 due to generalized weakness and abdominal pain. She has a past medical history of hypertension, hyperlipidemia , depression, CAD, type 2 diabetes mellitus, tardive dyskinesia. 1. Acute on chronic abdominal pain-secondary to large right diaphragmatic hernia as demonstrated on CT of abdomen. CT of abdomen showed large anterior diaphragmatic hernia containing multiple distal small bowel loops, transverse colon, and mesenteric vessels and fat. Surgery evaluated patient and recommended transfer for cardiothoracic surgery for repair. Patient was previously seen at [facility] but was told intervention was not able to be completed at their facility due to complicated case. [facility] willing to accept patient and patient is stable for transfer. CT of abdomen also showed lesion on the left kidney which is suspicious for renal cell carcinoma. This will also need further evaluated. 2. Generalized weakness-suspect secondary to poor oral intake as a result of # 1. 3. Elevated lipase, mild-resolved. 4. Depression-continue home medication regimen. 5. Hypertension-stable, continue home regimen. 6. Hyperlipidemia-continue statin. 7. CAD-continue statin. Not on aspirin or beta-carlton. 8. Type 2 diabetes mellitus-not on home regimen. Previous A1c in 2015 5.5%. 9. Tardive dyskinesia-secondary to previous psychiatric medications. 10. Acute hypoxia-chest CTA completed showed no evidence of acute pulmonary embolism, bibasilar atelectasis, large anterior diaphragmatic hernia as noted above. Suspect large hernia is contributing to acute hypoxia. Recent echocardiogram showed an estimated ejection fraction of 75%, stage I diastolic dysfunction, RVSP estimated to be 48, mild pulmonary hypertension. Continue oxygen supplementation. General: Alert, Oriented x3, Cooperative, No apparent distress HEENT: Atraumatic, PERRLA, EOMI, Normocephalic Oral: Dry Mucosa Neck: Supple, No JVD, Negative Carotid Bruits Lungs: Clear to auscultation, Normal air movement Cardiovascular: Regular rate, Regular Rhythm, Normal S1, Normal S2, No murmurs Abdomen: Bowel Sounds Present, Soft, Non-Distended, Tender - Bilateral upper abdomen Extremities: No edema, Capillary Refill Less than 3 Seconds Skin: No rashes, No breakdown Musculoskeletal: No Tenderness to Palpation of Joints or Extremities Neurological: Cranial nerves II-XII grossly intact, Neuro grossly intact Psych/Mental Status: Normal Affect, Appropriate Patient seen and examined prior to discharge. Physical assessment as noted above. Patient stable for transfer to acute care facility. This patient was seen by MAXIMILIANO Pendleton under the supervision of Dr. Bolaños. Home Medications: Medications to take at Discharge Clonidine HCl 0.05 tab PO BID 03/17/17 Fluoxetine [Prozac] 60 mg PO DAILY 03/17/17 Furosemide [Lasix] 20 mg PO DAILY 03/17/17 Lorazepam [Ativan] 1 mg PO BID 03/17/17 Losartan Potassium 100 mg PO DAILY 03/17/17 Magnesium Oxide [Mag-Ox 400] 400 mg PO QHS 03/17/17 Pantoprazole Sodium [Protonix] 20 mg PO DAILY 03/17/17 Pramipexole Di-HCl [Pramipexole Dihydrochloride] 0.75 mg PO QHS 03/17/17 Simvastatin 40 mg PO QHS 03/17/17 Spironolactone 25 mg PO DAILY 03/17/17 Dicyclomine HCl 20 mg PO DAILY PRN 10/19/17 Minoxidil [Loniten] 2.5 mg PO BID 10/19/17 Primary Care Physician: Jose L Valenzuela MD [Primary Care Provider] - Disposition: Acute care Hospital Minutes spent on discharge:: 35 Patient Condition:: Stable Meaningful Use Info Meaningful Use Diagnoses (Choose all that apply): None applicable
--- NOTE | 2017-10-26 13:24 | CASEMGMT ---
Social Work Note Pt being transferred to [facility] when bed becomes available. [facility] on TCU notified to adjust her bed availability. Deisy Kingsley, [employer]
[2017-10-26] MEDS: 0.9% NaCl Peripheral Flush Adult/Peds IV ×2 (14:48→14:50)
--- NOTE | 2017-10-26 15:02 | NURSING ---
Report called to PRACHI Burdick, at [facility]. Transportation being arranged.
--- NOTE | 2017-10-26 23:42 | CT_ITS ---
STUDY: CTA CHEST REASON FOR EXAM: Female, 77 years old. 28 RADIATION DOSAGE (If Supplied By Facility): CTDIvol = ( 16.26 ) mGy, DLP = ( 1124.66 ) mGycm TECHNIQUE: The examination was performed with the intravenous administration of 100ML ml of Isovue 370 contrast material. Post-processing of the angiographic images was performed, with multiplanar reformation and 3D reconstruction. Individualized dose optimization techniques were used for this CT. COMPARISON: None. FINDINGS: Normal enhancement of the main pulmonary artery and right and left pulmonary arteries. Normal enhancement of the bilateral peripheral pulmonary arteries. There is no demonstrated pulmonary embolism. Thoracic aorta demonstrates no aneurysmal dilatation or evidence of dissection.. Borderline cardiomegaly. No pericardial effusion. Shotty mediastinal and hilar lymph nodes. Normal visualized trachea and bronchi. Bibasilar atelectasis. Normal pulmonary parenchyma. No pleural effusion or pneumothorax. Normal chest wall structures. There are degenerative changes of thoracic spine. There is a large anterior diaphragmatic hernia with small bowel loops, colonic segments all herniating up into the right anterior thoracic cavity. CT/CTA Chest W/WO Contrast IMPRESSION: 1. No evidence of acute pulmonary embolism or aortic pathology. 2. Bibasilar atelectasis. 3. Large anterior diaphragmatic hernia with small bowel loops, colonic segments and mesenteric fat radiating into the right anterior thoracic cavity. Electronically Signed: Richard Garcia MD at 1:50 EST Tel , Service support ,
--- NOTE | 2017-10-26 23:43 | CT_ITS ---
STUDY: CTA OF THE ABDOMEN AND PELVIS REASON FOR EXAM: Female, 77 years old. RADIATION DOSAGE (If Supplied By Facility): CTDIvol = ( 16.26 ) mGy, DLP = ( 1124.66 ) mGycm TECHNIQUE: Axial CT angiography multi-detector data acquisition was obtained from the lung bases to the normal proximal thighs following intravenous administration of 100ML ml of Isovue 370 contrast. Axial images and MIP images were reconstructed from the axial data set. Post-processing of the angiographic images was performed, with multiplanar reformation and 3D reconstruction. Individualized dose optimization techniques were used for this CT. TECHNICAL QUALITY: Good COMPARISON: None. Descriptors of Narrowing: None (0%) Mild (< 50%) Moderate (50-70%) Severe (70-90%) Subtotal/Total Occlusion (90-100%) Non-Evaluable (technically non-diagnostic FINDINGS: Angiographic findings: Proximal Abdominal aorta: No demonstrated narrowing. Celiac and superior mesenteric arteries: No demonstrated narrowing. Inferior mesenteric artery: No demonstrated narrowing. Right renal artery(arteries): No demonstrated narrowing. Left renal artery(arteries): Mild proximal narrowing Infrarenal abdominal aorta: No aneurysmal dilatation. Right common iliac artery: No demonstrated narrowing. Right external iliac artery: No demonstrated narrowing. Right internal iliac artery: No demonstrated narrowing. Left common iliac artery: No demonstrated narrowing. Left external iliac artery: No demonstrated narrowing. Left internal iliac artery: No demonstrated narrowing. Right common femoral artery: No demonstrated narrowing. Left common femoral artery: No demonstrated narrowing. Nonangiographic findings: Large anterior diaphragmatic hernia with small bowel and colonic mesenteric fat herniating into the right anterior thoracic cavity. Liver is normal. Gallbladder surgically absent. Biliary duct dilatation. Spleen is normal. Pancreas is normal bilateral adrenal glands are normal. Exophytic hypoattenuated lesion arising off the posterior left upper renal pole measuring 1.7 cm. Hypoattenuated lesions arising from the right kidney. 4 mm calculus in the mid left renal pelvis. No hydronephrosis or hydroureter. Stomach is normal. Proximal small bowel loops are normal. Distal small bowel loops extend up into the right anterior diaphragmatic hernia. Appendix is not definitively visualized. The majority of the transverse colon is seen in the anterior diaphragmatic hernia. Mild fecal impaction in the rectosigmoid colon. Urinary bladder is normal. Large calcified fibroid arising off the uterine fundus measuring 9.4 cm. No free pelvic fluid. CT/CT ANGIO ABD&PEL W/O&W/DYE IMPRESSION: 1. Large anterior diaphragmatic hernia containing multiple distal small bowel loops, the transverse colon, and mesenteric vessels and fat. 2. 1.7 cm enhancing exophytic lesion arising off the posterior left upper renal pole, concerning for renal cell carcinoma. 3. Nonobstructing 4 mm mid left renal calculus. 4. Simple appearing right renal cyst. 5. Calcified fibroid arising off the uterine fundus. Electronically Signed: Richard Garcia MD at 2:00 EST Tel , Service support ,
== END 2017-10-26 15:50 | disposition short-term general hospital (02) ==
LOC: ED 10-26 01:32 → MS3 10-26 04:25
PROVIDERS: Admitting Provider Internal Medicine; Emergency Provider Emergency Medicine; Family Provider Family Medicine; PCP Family Medicine; Visit Provider Family Medicine
DX: R10.10 Upper abdominal pain, unspecified (principal); R10.30 Lower abdominal pain, unspecified; I25.10 Atherosclerotic heart disease of native coronary artery without angina pectoris; E78.5 Hyperlipidemia, unspecified; E11.9 Type 2 diabetes mellitus without complications; B35.1 Tinea unguium; I10 Essential (primary) hypertension; F32.9 Major depressive disorder, single episode, unspecified; N28.89 Other specified disorders of kidney and ureter; F41.9 Anxiety disorder, unspecified; G24.01 Drug induced subacute dyskinesia; K44.9 Diaphragmatic hernia without obstruction or gangrene; E87.1 Hypo-osmolality and hyponatremia; R09.02 Hypoxemia; Z79.899 Other long term (current) drug therapy; R10.84 Generalized abdominal pain; I27.20 Pulmonary hypertension, unspecified
CPT/HCPCS: 36415; 71275; 74174; 80053; 81001; 83605; 83690; 84484; 85025; 85610; 85730; 87633; 93005; 96361; 96372; 96374; 96375; 96376; 97162; 97165; 97802; 99218; 99285; J7030; J7040; J7050; Q9967; A4216; G0378; J2405; J3490

== ENCOUNTER 2017-11-03 19:15 | Inpatient (IN) | payer MEDICARE, SELFPAY ==
[2017-11-03 19:39] VITALS: BMI 31.4
[2017-11-03 20:09] VITALS: BP 153/81; PULSE 76; RESP 22; TEMP 37; O2SAT 92
--- NOTE | 2017-11-03 20:19 | PCM.HP.STD ---
Problem List (1) Diaphragmatic hernia Status: Chronic (2) Diabetes mellitus Status: Chronic (3) Coronary artery disease Status: Chronic (4) Obesity Status: Chronic (5) GERD (gastroesophageal reflux disease) Status: Chronic (6) Depression Status: Chronic (7) HLD (hyperlipidemia) Status: Chronic (8) Hyponatremia Status: Chronic Comment: also has chronic mild hyponatremia (9) Dyskinesia, tardive Status: Chronic (10) Brain aneurysm Status: Chronic (11) Takotsubo syndrome Status: Chronic (12) Hypertension Status: Chronic (13) Abdominal pain Status: Acute Qualifiers: History of Present Illness Date of Admission: 11/03/17 Chief Complaint: Here for rehabilitation, strengthening, prior to discharge home alone. The patient is a 77 year old Female with below past medical history presented to [facility] Emergency Department 10/26/2017 with abdominal pain. 10/25/2017 EKG sinus rhythm with 1st degree AV block, non-specific ST&T wave abnormality. Abdominal pain x several hours, upper abdomen. Nausea, recent flu with diarrhea. WBC 13.3, Glucose 146, Lipase 43, Hepatic panel okay, INR, PTT normal. Troponin normal.. CT showed left renal mass concerning for cancer, diaphragmatic hernia, uterine fibroid. IV fluids, phenergan, pain meds. Patient wanted to go home, but unable to walk. 10/26/2017 Admit to Hospital. PT/OT for debility. 10/26/2017 Dr. Trinidad recommended diaphragmatic hernia repair at tertiary care center. 10/26/2017 CTA chest negative for pulmonary embolism, showed bibasilar atelectasis. Large anterior diaphragmatic hernia with small bowel loops, colonic segments, mesenteric fat radiating into the right anterior thoracic cavity. 10/26/2017 CTA abdomen/pelvis, as above, and left renal mass 1.7CM concerning for renal cell carcinoma. 10/26/2017 Transfer to [facility] for further evaluation of diaphragmatic hernia with strangulation and gangrene. At [facility], patient thought too high risk for surgery. Patient was treated supportively. 11/03/2017 Admit to TCU for rehabilitation, strengthening, prior to discharge home alone. 11/04/2017 Resident became increasingly short of breath, respiratory therapy recommended BIPAP. Resident was sent to [facility] Emergency Department for evaluation, no acute findings noted. I had phone conversation with Dr. Okeefe, resident's son states Dr. Bar at [facility] able and willing to perform diaphragmatic hernia repair, but resident needs to get stronger. Surgeons at [facility] thought resident was too high risk to operate. Resident wants to go home, she is undecided about surgery and often defers to her son for decision making. Past Medical History Past Medical History (Chronic Problems): Chronic Problems Diaphragmatic hernia (Chronic) Diabetes mellitus (Chronic) Coronary artery disease (Chronic) Obesity (Chronic) GERD (gastroesophageal reflux disease) (Chronic) Hx of appendectomy (Chronic) Benign essential HTN (Chronic) Depression (Chronic) HLD (hyperlipidemia) (Chronic) Overweight (BMI 25.0-29.9) (Chronic) CAD (coronary artery disease) (Chronic) Diabetes mellitus, type II (Chronic) Hyponatremia (Chronic) also has chronic mild hyponatremia Traumatic closed nondisplaced fracture of neck of left femur (Chronic) Status post closed reduction with internal fixation (Chronic) left femur 06/22, Dr Spears, [facility] Tinea unguium (Chronic) Dyskinesia, tardive (Chronic) Takatsuki syndrome (Chronic) Brain aneurysm (Chronic) Takotsubo syndrome (Chronic) Hypertension (Chronic) Allergies No Known Allergies Allergy (Verified 03/17/17 10:29) Home Medications: Ambulatory Orders Medication Instructions Recorded Clonidine HCl 0.1 tab PO DAILY 03/17/17 Fluoxetine [Prozac] 60 mg PO DAILY 03/17/17 Lorazepam [Ativan] 1 mg PO BID 03/17/17 Losartan Potassium 100 mg PO DAILY 03/17/17 Magnesium Oxide [Mag-Ox 400] 400 mg PO QHS 03/17/17 Pantoprazole Sodium [Protonix] 20 mg PO DAILY 03/17/17 Pramipexole Di-HCl [Pramipexole 0.75 mg PO QHS 03/17/17 Dihydrochloride] Simvastatin 40 mg PO QHS 03/17/17 Minoxidil [Loniten] 2.5 mg PO BID 10/19/17 Acetaminophen 650 mg PO Q6H PRN PRN 11/03/17 Aspirin [Aspirin, Baby] 81 mg PO DAILY@0800 11/03/17 Ipratropium/Albuterol Sulfate 3 ml INHALATION Q4H.RT 11/03/17 [Duoneb] Ondansetron HCl [Zofran] 4 mg PO Q8H PRN PRN 11/03/17 Oxycodone HCl [Roxicodone] 5 mg PO Q6H PRN PRN 11/03/17 Surgical History: appendectomy, cholecystectomy, herniorrhaphy, tonsillectomy, - - 06/22/15 left hip CRIF Psychiatric History: Anxiety, Depression 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 Denies: Nausea, Vomiting Genitourinary: Denies: Dysuria Musculoskeletal: Denies: Joint Pain, Joint Tenderness Skin: Denies: Rash, Wounds Neurological: Denies: Numbness, Tingling, Focal weakness Psychiatric: Denies: Anxiety, Depression, Homicidal Ideations, Suicidal Ideations Hematologic/ Lymphatic: Denies: Easy Bruising, Easy Bleeding VTE Information - Inpt Only VTE Present on Admission: No VTE Mechan Device Prophylaxis: Knee High DISHA Hose VTE Pharm Prophylaxis ordered?: Yes - Physical Exam General: Alert, Oriented x3, Cooperative HEENT: Atraumatic, PERRLA, EOMI, Normocephalic Neck: Supple, No JVD, Negative Carotid Bruits Lungs: Clear to auscultation, Normal air movement Cardiovascular: Regular rate, No murmurs Abdomen: Bowel Sounds Present, Soft, Non Tender Extremities: No edema, Capillary Refill Less than 3 Seconds Skin: No rashes, No breakdown Musculoskeletal: No Tenderness to Palpation of Joints or Extremities Neurological: Cranial nerves II-XII grossly intact Psych/Mental Status: Normal Affect, Appropriate Vital Signs Temp Pulse Resp BP Pulse Ox 98.6 F 76 22 H 153/81 H 92 11/03/17 20:09 11/03/17 20:09 11/03/17 20:09 11/03/17 20:09 11/03/17 20:09 Oxygen Flow Rate 3 Oxygen Delivery Method Nasal Cannula Weight: 82.9 kg Body Mass Index (BMI) 31.4 Finger Stick Blood Glucose 176 Assessment/Plan 77 year old female with complex past medical history hospitalized for abdominal pain secondary to strangulated diaphragmatic hernia with gangrene, treated non-operatively, complicated left renal mass suspicious for renal cell carcinoma, admitted to TCU for rehabilitation, strengthening, prior to discharge home alone. Debility - PT/OT. Pain - Tylenol 1000MG Q8H PRN mild pain, Oxycodone 5MG Q6H PRN moderate pain. Bowel - Miralax 17GM daily, Senna/colace 2 tablets BID, Dulcolax 10MG PO daily PRN. Pneumonia vaccination - Administer Prevnar 13 and/or Pneumovax 23 as necessary. DVT prophylaxis - Lovenox 40MG SC daily. Coronary Artery Disease - Losartan 100MG daily, Aspirin 81MG daily. Hyperlipidemia - Atorvastatin 20MG QHS. Hypertension - Losartan 100MG daily, Minoxidil 2.5MG BID, Clonidine 0.1MG daily. Depression - Fluoxetine 60MG daily. Shortness of breath - Duoneb 3ML Q4H. Anxiety - Lorazepam 1MG BID. Hypomagnesemia - Mag Oxide 400MG QHS. Hypophosphatemia - Neutra Phos 1 packet BID. Nausea - Zofran 4MG Q8H PRN. GERD - Pantoprazole 20MG daily. Restless Legs Syndrome - Mirapex 0.75MG QHS. Diaphragmatic hernia - Move up appt with Dr. Bar to evaluate for surgical options. Left kidney mass - Order CT guided biopsy.
--- NOTE | 2017-11-03 20:35 | HP.PCM_ITS ---
Problem List (1) Diaphragmatic hernia Status: Chronic (2) Diabetes mellitus Status: Chronic (3) Coronary artery disease Status: Chronic (4) Obesity Status: Chronic (5) GERD (gastroesophageal reflux disease) Status: Chronic (6) Depression Status: Chronic (7) HLD (hyperlipidemia) Status: Chronic (8) Hyponatremia Status: Chronic Comment: also has chronic mild hyponatremia (9) Dyskinesia, tardive Status: Chronic (10) Brain aneurysm Status: Chronic (11) Takotsubo syndrome Status: Chronic (12) Hypertension Status: Chronic (13) Abdominal pain Status: Acute Qualifiers: History of Present Illness Date of Admission: 11/03/17 Chief Complaint: Here for rehabilitation, strengthening, prior to discharge home alone. The patient is a 77 year old Female with below past medical history presented to [facility] Emergency Department 10/26/2017 with abdominal pain. 10/25/2017 EKG sinus rhythm with 1st degree AV block, non-specific ST&T wave abnormality. Abdominal pain x several hours, upper abdomen. Nausea, recent flu with diarrhea. WBC 13.3, Glucose 146, Lipase 43, Hepatic panel okay, INR, PTT normal. Troponin normal.. CT showed left renal mass concerning for cancer, diaphragmatic hernia, uterine fibroid. IV fluids, phenergan, pain meds. Patient wanted to go home, but unable to walk. 10/26/2017 Admit to Hospital. PT/OT for debility. 10/26/2017 Dr. Trinidad recommended diaphragmatic hernia repair at tertiary care center. 10/26/2017 CTA chest negative for pulmonary embolism, showed bibasilar atelectasis. Large anterior diaphragmatic hernia with small bowel loops, colonic segments, mesenteric fat radiating into the right anterior thoracic cavity. 10/26/2017 CTA abdomen/pelvis, as above, and left renal mass 1.7CM concerning for renal cell carcinoma. 10/26/2017 Transfer to [facility] for further evaluation of diaphragmatic hernia with strangulation and gangrene. At [facility], patient thought too high risk for surgery. Patient was treated supportively. 11/03/2017 Admit to TCU for rehabilitation, strengthening, prior to discharge home alone. 11/04/2017 Resident became increasingly short of breath, respiratory therapy recommended BIPAP. Resident was sent to [facility] Emergency Department for evaluation , no acute findings noted. I had phone conversation with Dr. Okeefe, resident' s son states Dr. Bar at [facility] able and willing to perform diaphragmatic hernia repair, but resident needs to get stronger. Surgeons at [facility] thought resident was too high risk to operate. Resident wants to go home, she is undecided about surgery and often defers to her son for decision making. Past Medical History Past Medical History (Chronic Problems): Chronic Problems Diaphragmatic hernia (Chronic) Diabetes mellitus (Chronic) Coronary artery disease (Chronic) Obesity (Chronic) GERD (gastroesophageal reflux disease) (Chronic) Hx of appendectomy (Chronic) Benign essential HTN (Chronic) Depression (Chronic) HLD (hyperlipidemia) (Chronic) Overweight (BMI 25.0-29.9) (Chronic) CAD (coronary artery disease) (Chronic) Diabetes mellitus, type II (Chronic) Hyponatremia (Chronic) also has chronic mild hyponatremia Traumatic closed nondisplaced fracture of neck of left femur (Chronic) Status post closed reduction with internal fixation (Chronic) left femur 06/22, Dr Spears, [facility] Tinea unguium (Chronic) Dyskinesia, tardive (Chronic) Takatsuki syndrome (Chronic) Brain aneurysm (Chronic) Takotsubo syndrome (Chronic) Hypertension (Chronic) Allergies No Known Allergies Allergy (Verified 03/17/17 10:29) Home Medications: Ambulatory Orders Medication Instructions Recorded Clonidine HCl 0.1 tab PO DAILY 03/17/17 Fluoxetine [Prozac] 60 mg PO DAILY 03/17/17 Lorazepam [Ativan] 1 mg PO BID 03/17/17 Losartan Potassium 100 mg PO DAILY 03/17/17 Magnesium Oxide [Mag-Ox 400] 400 mg PO QHS 03/17/17 Pantoprazole Sodium [Protonix] 20 mg PO DAILY 03/17/17 Pramipexole Di-HCl [Pramipexole 0.75 mg PO QHS 03/17/17 Dihydrochloride] Simvastatin 40 mg PO QHS 03/17/17 Minoxidil [Loniten] 2.5 mg PO BID 10/19/17 Acetaminophen 650 mg PO Q6H PRN PRN 11/03/17 Aspirin [Aspirin, Baby] 81 mg PO DAILY@0800 11/03/17 Ipratropium/Albuterol Sulfate 3 ml INHALATION Q4H.RT 11/03/17 [Duoneb] Ondansetron HCl [Zofran] 4 mg PO Q8H PRN PRN 11/03/17 Oxycodone HCl [Roxicodone] 5 mg PO Q6H PRN PRN 11/03/17 Surgical History: appendectomy, cholecystectomy, herniorrhaphy, tonsillectomy, - - 06/22/15 left hip CRIF Psychiatric History: Anxiety, Depression 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 Denies: Nausea, Vomiting Genitourinary: Denies: Dysuria Musculoskeletal: Denies: Joint Pain, Joint Tenderness Skin: Denies: Rash, Wounds Neurological: Denies: Numbness, Tingling, Focal weakness Psychiatric: Denies: Anxiety, Depression, Homicidal Ideations, Suicidal Ideations Hematologic/ Lymphatic: Denies: Easy Bruising, Easy Bleeding VTE Information - Inpt Only VTE Present on Admission: No VTE Mechan Device Prophylaxis: Knee High DISHA Hose VTE Pharm Prophylaxis ordered?: Yes - Physical Exam General: Alert, Oriented x3, Cooperative HEENT: Atraumatic, PERRLA, EOMI, Normocephalic Neck: Supple, No JVD, Negative Carotid Bruits Lungs: Clear to auscultation, Normal air movement Cardiovascular: Regular rate, No murmurs Abdomen: Bowel Sounds Present, Soft, Non Tender Extremities: No edema, Capillary Refill Less than 3 Seconds Skin: No rashes, No breakdown Musculoskeletal: No Tenderness to Palpation of Joints or Extremities Neurological: Cranial nerves II-XII grossly intact Psych/Mental Status: Normal Affect, Appropriate Vital Signs Temp Pulse Resp BP Pulse Ox 98.6 F 76 22 H 153/81 H 92 11/03/17 20:09 11/03/17 20:09 11/03/17 20:09 11/03/17 20:09 11/03/17 20:09 Oxygen Flow Rate 3 Oxygen Delivery Method Nasal Cannula Weight: 82.9 kg Body Mass Index (BMI) 31.4 Finger Stick Blood Glucose 176 Assessment/Plan 77 year old female with complex past medical history hospitalized for abdominal pain secondary to strangulated diaphragmatic hernia with gangrene, treated non- operatively, complicated left renal mass suspicious for renal cell carcinoma, admitted to TCU for rehabilitation, strengthening, prior to discharge home alone. * Debility - PT/OT. * Pain - Tylenol 1000MG Q8H PRN mild pain, Oxycodone 5MG Q6H PRN moderate pain. * Bowel - Miralax 17GM daily, Senna/colace 2 tablets BID, Dulcolax 10MG PO daily PRN. * Pneumonia vaccination - Administer Prevnar 13 and/or Pneumovax 23 as necessary. * DVT prophylaxis - Lovenox 40MG SC daily. * Coronary Artery Disease - Losartan 100MG daily, Aspirin 81MG daily. * Hyperlipidemia - Atorvastatin 20MG QHS. * Hypertension - Losartan 100MG daily, Minoxidil 2.5MG BID, Clonidine 0.1MG daily. * Depression - Fluoxetine 60MG daily. * Shortness of breath - Duoneb 3ML Q4H. * Anxiety - Lorazepam 1MG BID. * Hypomagnesemia - Mag Oxide 400MG QHS. * Hypophosphatemia - Neutra Phos 1 packet BID. * Nausea - Zofran 4MG Q8H PRN. * GERD - Pantoprazole 20MG daily. * Restless Legs Syndrome - Mirapex 0.75MG QHS. * Diaphragmatic hernia - Move up appt with Dr. Bar to evaluate for surgical options. * Left kidney mass - Order CT guided biopsy.
--- NOTE | 2017-11-03 20:57 | NURSING ---
Code status discussed with pt. pt wishes to be full code.
[2017-11-03 21:00] VITALS: PULSE 70; O2SAT 97
[2017-11-03] MEDS: oxyCODONE 5 MG Tablet PO (21:37)
[2017-11-03] MEDS: Acetaminophen 500 MG Tablet 1000 MG PO (21:38)
[2017-11-03] MEDS: Atorvastatin Calcium 20 MG Tablet PO (21:39)
[2017-11-03] MEDS: Pramipexole Di-HCl 0.25 MG Tablet 0.75 MG PO (21:40)
[2017-11-03] MEDS: Magnesium Oxide 400 MG Tablet PO (21:41)
[2017-11-03] MEDS: Ondansetron ODT 4 MG Tablet PO (21:51)
[2017-11-03] MEDS: LORazepam 1 MG Tablet PO (21:52)
[2017-11-03 22:20] VITALS: PULSE 77; RESP 28; O2SAT 96
[2017-11-03] MEDS: Ipratropium/Albuterol Sulfate 3 ML AMPUL.NEB INHALATION (22:20)
--- NOTE | 2017-11-03 23:15 | NURSING ---
Addendum entered by Deena Tran 11/03/17 23:30: SonKalia returned phone call. Updated on pt. Original Note: Addendum entered by Deena Tran 11/03/17 23:26: Report called to ER and PRACHI Breaux called and left voicemail with son Kalia. Dispensary Attendant aware. Original Note: Pt very SOB, 95% on 3.5L NC. Breathing tx given by respiratory and still SOB with crackles in bases and diminished lung sounds after tx. Dr. Moseley aware and new order to send pt to ER.
[2017-11-04] VITALS (8 sets, daily range): BP systolic 126; BP diastolic 72; PULSE 75–88; RESP 18–30; TEMP 37.1; O2SAT 93–98
--- NOTE | 2017-11-04 03:20 | NURSING ---
Pt returned from ER. Vitals bp 179/81, HR 80, 94% on 4L NC. resp 22. Pt still very SOB. Repositioned in bed and call light within reach.
[2017-11-04] MEDS: oxyCODONE 5 MG Tablet PO ×2 (04:41→21:25)
[2017-11-04 06:04] LABS: Absolute Lymphocyte Count 1.44 X10^3/ul (0.83-4.51); Absolute Neutrophil Count 4.4 X10^3/uL (2.0-7.7); Basophil# 0.05 X10^3/uL; Basophil% 0.8 % (0-1); Eosinophil# 0.18 X10^3/uL; Eosinophils% 2.8 % (0-5); Hematocrit 32.8 % (37-47); Hemoglobin 10.6 g/dl (12.0-15.0); Lymphocyte # 1.44 X10^3/ul (4.0); Lymphocyte % 22.2 % (19-41); Mean Corp Hgb Conc 32.3 g/gl (32-36); Mean Corpuscular Hgb 29.5 pg (27.0-32.0); Mean Corpuscular Volume 91.4 fL (81-99); Mean Platelet Vol. 8.9 fl (6.2-12.0); Monocyte# 0.45 X10^3/uL; Monocyte% 6.9 % (0-10); Neutrophil # 4.35 X10^3/uL (2.7-7.7); Neutrophil % 67.1 % (47-70); Platelet Count 254 K/mm3 (150-450); RBC Distribution Width CV 13.1 % (11.6-14.6); RBC Distribution Width SD 42.4 fl (35.1-43.9); Red Blood Count 3.59 M/mm3 (4.2-5.4); White Blood Count 6.5 K/mm3 (4.4-11.0)
[2017-11-04 06:13] LABS: POSITIVE COUNT NO; POSITIVE DIFFERENTIAL NO; POSITIVE MORPHOLOGY NO
[2017-11-04 06:38] LABS: Anion Gap 5 (5-15); BUN 9 mg/dL (7-18); BUN/Creat Ratio 14.7 RATIO (10-20); Calcium,Total 8.2 mg/dL (8.5-10.1); Chloride 97 mmol/L (98-107); Creatinine, Serum 0.61 mg/dL (0.55-1.02); EST Glomerular Filtration Rate 100 mL/min (>60); Est Glom Filt Rate - Afr Amer 121 mL/min (>60); Estimated Creatinine Clearance 39.39 ml/min; Glucose 107 mg/dL (74-106); Potassium 3.6 mmol/L (3.5-5.1); Sodium Level 136 mmol/L (136-145)
[2017-11-04] MEDS: LORazepam 1 MG Tablet PO ×2 (06:56→17:30)
[2017-11-04] MEDS: Pantoprazole Sodium 20 MG Tablet PO (06:57)
[2017-11-04] MEDS: Losartan Potassium 100 MG Tablet PO (06:57)
[2017-11-04] MEDS: cloNIDine HCl 0.1 MG Tablet PO (06:58)
[2017-11-04] MEDS: Nystatin Powder 15gm Bottle 1 APPLIC TOPICAL (06:58)
[2017-11-04] MEDS: Minoxidil 2.5 MG Tablet PO ×2 (06:58→17:30)
[2017-11-04] MEDS: Na Biphos/Potassium Phosphate PACKET 1 PACKET PO ×2 (06:59→17:29)
[2017-11-04] MEDS: FLUoxetine 20 MG Capsule 60 MG PO (06:59)
[2017-11-04] MEDS: Senna/Docusate Sodium 1 Tablet 2 TABLET PO ×2 (07:00→17:29)
[2017-11-04] MEDS: Enoxaparin 40 MG/0.4 ML Syringe SC (07:08)
[2017-11-04] MEDS: Ondansetron ODT 4 MG Tablet PO ×2 (07:10→21:32)
[2017-11-04] MEDS: Ipratropium/Albuterol Sulfate 3 ML AMPUL.NEB INHALATION ×5 (07:21→23:35)
--- NOTE | 2017-11-04 07:30 | NURSING ---
Pt very SOB and vomiting after medications this AM. BP in right arm 231/132, left arm 200/107, HR 88, and 93% on 4L NC. Dr. Moseley aware of vitals and spoke to pt on phone. Pt now wishes to be DNRCC, and new order for roxanol 10mg Q2H PRN and ativan IV 1mg Q1H PRN. Pts son, Kalia aware of update on pt at this time.
[2017-11-04] MEDS: LORazepam 2 MG/ML Syringe 1 MG IV (08:08)
[2017-11-04] MEDS: Aspirin 81 MG TAB.CHEW PO (08:18)
--- NOTE | 2017-11-04 10:23 | NURSING ---
This nurse spoke with patient and patient's son (POA) and daughter regarding SOB episodes last night and this morning. At this time, patient and family would like patient to remain a full code until she see's Dr. Bar, cardiothoracic surgeon at [facility] on 11/14/17. Son states that Dr. Bar may be willing to complete diaphragmatic hernia repair. Support provided to patient and family. Patient's blood pressure 167/90, oxygen level 97% on 4LPM, SOB significantly improved.
--- NOTE | 2017-11-04 13:16 | NURSING ---
Addendum entered by Deisy Cantu 11/05/17 16:25: Dr. Moseley updated on Dr. Bar's appt, only take place on Wednesdays. Pt signed authorization to disclose to obtain disc and paperwork, faxed to medical records. Son aware. Original Note: Dr. Moseley updated on patient. Would like charge nurse to call Dr. Bar's office on Sunday and get patient seen [facility], current appointment for 11/14/17. If patient begins to decline again, may send to ER.
--- NOTE | 2017-11-04 17:22 | NURSING ---
Patient walked entire unit with x1 assist and walker. No c/o SOB, oxygen maintained at 97% on 3LPM.
--- NOTE | 2017-11-04 19:15 | RAD_ITS ---
XR Chest 2 Views INDICATION: POSITIVE TB TEST COMPARISON: CT chest October 25, 2017 TECHNIQUE: 2 views of the chest FINDINGS: There is redemonstration of elevation of the right hemidiaphragm with bibasilar atelectasis/consolidation. Bilateral pleural effusions are appreciated, new compared to the prior CT. There is no abnormal calcification or scarring noted in the lung apices. RAD/Chest PA and Lateral IMPRESSION: Elevation of the right hemidiaphragm, stable. New small bilateral pleural effusions with adjacent atelectasis/consolidation. No abnormality in the lung apices. at 1942 Reported and signed by: Kellen Kelly MD Electronically Signed: Kellen Kelly MD at 18:41 EST Tel , Service support ,
[2017-11-04] MEDS: Magnesium Oxide 400 MG Tablet PO (21:26)
[2017-11-04] MEDS: Pramipexole Di-HCl 0.25 MG Tablet 0.75 MG PO (21:26)
[2017-11-04] MEDS: Atorvastatin Calcium 20 MG Tablet PO (21:27)
[2017-11-04] MEDS: Bisacodyl 5 MG Tablet 10 MG PO (21:32)
[2017-11-05] MEDS: Acetaminophen 500 MG Tablet 1000 MG PO ×2 (01:26→20:25)
[2017-11-05] MEDS: Ondansetron ODT 4 MG Tablet PO (06:01)
--- NOTE | 2017-11-05 06:03 | NURSING ---
Pt dry heaving this AM, PRN zofran provided. Pt appears very SOB and having a hard time breathing. 94% on 3L NC, respiratory notified to give pt breathing tx. Will continue to monitor.
[2017-11-05 06:35] VITALS: PULSE 88; RESP 20; O2SAT 91
[2017-11-05] MEDS: Ipratropium/Albuterol Sulfate 3 ML AMPUL.NEB INHALATION (06:35)
[2017-11-05 06:36] LABS: Bedside Glucose 124 mg/dL (70-110)
--- NOTE | 2017-11-05 08:30 | NURSING ---
Dr. Moseley reviewed CXR results, NNO
--- NOTE | 2017-11-05 09:23 | US_ITS ---
STUDY: RENAL ULTRASOUND - COMPLETE REASON FOR EXAM: Female, 77 years old. Possible left renal mass. TECHNIQUE: Ultrasound evaluation of the kidneys was performed with real-time and static vigil-scale imaging. Limited exam due to overlying bowel gas. COMPARISON: Comparison is made with prior CT scan and abdomen dated October 19, 2017. FINDINGS: Small right pleural effusion. RIGHT KIDNEY: Normal location of the right kidney, which is normal in size. The right kidney measures 10.2 cm x 5.1 cm x 4.1 cm. There is a normal cortex of the right kidney. The renal cortex measures 1.6 cm. There is no right renal mass or cyst. There are no right renal calculi. There is an extra-renal pelvis of the right kidney. There is no distention of the renal calyces. DISTAL RIGHT URETER: There is non-visualization of the distal right ureter. There is no demonstrated right ureterovesical junction calculus. There is no demonstrated right ureteral jet. LEFT KIDNEY: Normal location of the left kidney, which is normal in size. The left kidney measures 10.3 cm x 5.0 sinus by 5.5 cm. There is a normal cortex of the left kidney. The renal cortex measures 1.[address] scan of the abdomen dated back to March 11, 2014 demonstrated a stable 1.4 cm hypodensity in the posterior superior pole of the left kidney. This may represent a complex cyst. There is a cm x 1 cm calculus in the midportion of the left kidney. There is no left hydronephrosis. DISTAL LEFT URETER: There is non-visualization of the distal left ureter. There is no demonstrated left ureterovesical junction calculus. There is no demonstrated left ureteral jet. BLADDER: The bladder is empty at the time examination. US/Kidney and Bladder IMPRESSION: Limited evaluation of the left kidney due to overlying bowel gas. Stable nodular density in the superior posterolateral aspect of the left kidney most likely representing a complex cyst. Electronically Signed: Fan Benavidez MD at 11:17 EST Tel [phone], Service support ,
[2017-11-05] MEDS: Losartan Potassium 100 MG Tablet PO (09:34)
[2017-11-05] MEDS: Pantoprazole Sodium 20 MG Tablet PO (09:34)
[2017-11-05] MEDS: cloNIDine HCl 0.1 MG Tablet PO (09:34)
[2017-11-05] MEDS: FLUoxetine 20 MG Capsule 60 MG PO (09:35)
[2017-11-05] MEDS: Enoxaparin 40 MG/0.4 ML Syringe SC (09:35)
[2017-11-05] MEDS: LORazepam 1 MG Tablet PO ×2 (09:35→17:38)
[2017-11-05] MEDS: Minoxidil 2.5 MG Tablet PO ×2 (09:35→17:35)
[2017-11-05] MEDS: Aspirin 81 MG TAB.CHEW PO (09:35)
--- NOTE | 2017-11-05 09:37 | NURSING ---
Addendum entered by Deisy Cantu 11/05/17 13:07: Dr. Moseley updated on Dr. Benavidez's stating that biopsy is not recommended, finding of ultrasound are stable from 2013. CT cancelled, pt updated. Original Note: Dr. Moseley in to speak with pt and family, N.O. for CT guided biopsy of left renal mass. Per CT, pt needs an ultrasound of kidneys first, Dr. Moseley paged, N.O. received and entered.
[2017-11-05] MEDS: Na Biphos/Potassium Phosphate PACKET 1 PACKET PO ×2 (09:42→17:35)
[2017-11-05 09:45] VITALS: BP 152/84; PULSE 91
[2017-11-05 10:00] VITALS: PULSE 83; RESP 18; O2SAT 93
[2017-11-05] MEDS: oxyCODONE 5 MG Tablet PO ×2 (12:55→20:25)
--- NOTE | 2017-11-05 13:10 | CASEMGMT ---
Insurance Clinical information faxed. Pending continued stay approval at this time. Auth#will obtain with next review. Rebecca CHEATHAM, CERAMICS ENGINEER
[2017-11-05 16:00] VITALS: BP 113/56; PULSE 90; RESP 20; TEMP 36.9; O2SAT 88
[2017-11-05] MEDS: Nystatin Powder 15gm Bottle 1 APPLIC TOPICAL (20:17)
[2017-11-05] MEDS: Pramipexole Di-HCl 0.25 MG Tablet 0.75 MG PO (20:26)
[2017-11-05] MEDS: Atorvastatin Calcium 20 MG Tablet PO (20:27)
[2017-11-05] MEDS: Magnesium Oxide 400 MG Tablet PO (20:27)
--- NOTE | 2017-11-05 20:36 | NURSING ---
Spoke with patient regarding nausea and vomiting over weekend, if it was r/t meds, food, or hernia. Pt stated she was not sure but did not think it was 'too serious' and thinks the prn dulcolax taken sunday evening caused frequent liquid bms and nausea/vomiting. Denies any N/V at this time, saying I feel good right now. Encouraged to call if she needed anything or any assistance, pt verbally agreeable and thankful for this. Continuing to monitor. Sp02 94% on 1.5L, pt explained she removes oxygen occasionally because she does not want to be dependent on it. Also educated pt on importance of staff monitoring sp02 before taking it off altogether. Pt content with 1.5L, compliant and pleasant with staff. RNs on duty aware, continuing to monitor.
[2017-11-06] VITALS (7 sets, daily range): BP systolic 140; BP diastolic 71; PULSE 75–88; RESP 16–24; TEMP 37; O2SAT 92–97
[2017-11-06] MEDS: Ipratropium/Albuterol Sulfate 3 ML AMPUL.NEB INHALATION ×5 (01:30→22:35)
--- NOTE | 2017-11-06 04:35 | NURSING ---
Pt used call light, asked to use bathroom. This nurse assisted pt to bathroom, pt voided, mepilex to coccyx changed. Pt ambulated well with light assist of 1, repositioned for comfort. Continuing to monitor.
[2017-11-06] MEDS: LORazepam 1 MG Tablet PO ×3 (05:23→20:29)
[2017-11-06] MEDS: cloNIDine HCl 0.1 MG Tablet PO (05:24)
[2017-11-06] MEDS: Losartan Potassium 100 MG Tablet PO (05:25)
[2017-11-06] MEDS: Minoxidil 2.5 MG Tablet PO ×2 (05:25→17:24)
[2017-11-06] MEDS: Nystatin Powder 15gm Bottle 1 APPLIC TOPICAL ×2 (05:26→20:19)
[2017-11-06] MEDS: Na Biphos/Potassium Phosphate PACKET 1 PACKET PO ×2 (05:26→17:24)
[2017-11-06] MEDS: Enoxaparin 40 MG/0.4 ML Syringe SC (05:26)
[2017-11-06] MEDS: oxyCODONE 5 MG Tablet PO (05:27)
[2017-11-06] MEDS: Pantoprazole Sodium 20 MG Tablet PO (05:27)
[2017-11-06] MEDS: FLUoxetine 20 MG Capsule 60 MG PO (05:28)
[2017-11-06 06:46] LABS: Bedside Glucose 103 mg/dL (70-110)
[2017-11-06] MEDS: Aspirin 81 MG TAB.CHEW PO (08:24)
[2017-11-06] MEDS: Ondansetron ODT 4 MG Tablet PO (10:25)
[2017-11-06] MEDS: Magnesium Oxide 400 MG Tablet PO (20:20)
[2017-11-06] MEDS: Pramipexole Di-HCl 0.25 MG Tablet 0.75 MG PO (20:21)
[2017-11-06] MEDS: Atorvastatin Calcium 20 MG Tablet PO (20:21)
[2017-11-07] MEDS: LORazepam 1 MG Tablet PO ×3 (05:00→20:37)
[2017-11-07] MEDS: FLUoxetine 20 MG Capsule 60 MG PO (05:01)
[2017-11-07] MEDS: Polyethylene Glycol 3350 17 GM PACKET PO (05:01)
[2017-11-07] MEDS: Minoxidil 2.5 MG Tablet PO ×2 (05:01→17:27)
[2017-11-07] MEDS: Senna/Docusate Sodium 1 Tablet 2 TABLET PO ×2 (05:01→17:26)
[2017-11-07] MEDS: Na Biphos/Potassium Phosphate PACKET 1 PACKET PO ×2 (05:02→17:27)
[2017-11-07] MEDS: Pantoprazole Sodium 20 MG Tablet PO (05:02)
[2017-11-07] MEDS: Losartan Potassium 100 MG Tablet PO (05:02)
[2017-11-07] MEDS: Nystatin Powder 15gm Bottle 1 APPLIC TOPICAL ×2 (05:02→17:29)
[2017-11-07] MEDS: cloNIDine HCl 0.1 MG Tablet PO (05:02)
[2017-11-07] MEDS: Ondansetron ODT 4 MG Tablet PO ×2 (05:03→19:31)
[2017-11-07] MEDS: Enoxaparin 40 MG/0.4 ML Syringe SC (05:04)
[2017-11-07 06:45] VITALS: PULSE 83; RESP 18; O2SAT 91
[2017-11-07] MEDS: Ipratropium/Albuterol Sulfate 3 ML AMPUL.NEB INHALATION ×3 (06:45→21:43)
[2017-11-07 06:56] LABS: Bedside Glucose 113 mg/dL (70-110)
[2017-11-07] MEDS: Aspirin 81 MG TAB.CHEW PO (07:51)
--- NOTE | 2017-11-07 09:36 | NURSING ---
medical device sales consultant recommended diet change to cardiac, order changed
--- NOTE | 2017-11-07 09:51 | CASEMGMT ---
Plan of care meeting held. Resident present as well as resident family. No discharge date set at this time. Resident to continue with further care and treatment on the Transitional Care Unit. Resident plans to discharge home alone at time of discharge. Support given. Will continue to follow. Rebecca CHEATHAM, SENIOR SHAREPOINT DEVELOPER
[2017-11-07 11:20] VITALS: PULSE 93; RESP 18
--- NOTE | 2017-11-07 12:36 | CASEMGMT ---
Insurance Continued stay approved with next update due on 11/14/17. Auth#[id number] Rebecca CHEATHAM, POLICE CHIEF DEPUTY
[2017-11-07 13:33] VITALS: O2SAT 84
--- NOTE | 2017-11-07 13:33 | CPS ---
PT PLACED BACK ON 2 LPM....SAT TO 91%
[2017-11-07 15:57] VITALS: BP 112/60; PULSE 80; RESP 20; TEMP 36.8; O2SAT 93
[2017-11-07] MEDS: Magnesium Oxide 400 MG Tablet PO (20:37)
[2017-11-07] MEDS: Pramipexole Di-HCl 0.25 MG Tablet 0.75 MG PO (20:38)
[2017-11-07] MEDS: Atorvastatin Calcium 20 MG Tablet PO (20:38)
[2017-11-07 21:43] VITALS: PULSE 71; RESP 18; O2SAT 96
[2017-11-08] MEDS: LORazepam 1 MG Tablet PO ×3 (04:56→22:21)
[2017-11-08] MEDS: FLUoxetine 20 MG Capsule 60 MG PO (04:56)
[2017-11-08] MEDS: Losartan Potassium 100 MG Tablet PO (04:57)
[2017-11-08] MEDS: Pantoprazole Sodium 20 MG Tablet PO (04:57)
[2017-11-08] MEDS: Minoxidil 2.5 MG Tablet PO ×2 (04:57→17:18)
[2017-11-08] MEDS: Senna/Docusate Sodium 1 Tablet 2 TABLET PO ×2 (04:57→17:19)
[2017-11-08] MEDS: Na Biphos/Potassium Phosphate PACKET 1 PACKET PO ×2 (04:57→17:20)
[2017-11-08] MEDS: cloNIDine HCl 0.1 MG Tablet PO (04:57)
[2017-11-08] MEDS: Polyethylene Glycol 3350 17 GM PACKET PO (04:57)
[2017-11-08] MEDS: Nystatin Powder 15gm Bottle 1 APPLIC TOPICAL ×2 (04:58→17:22)
[2017-11-08] MEDS: Enoxaparin 40 MG/0.4 ML Syringe SC (04:58)
[2017-11-08] MEDS: Aspirin 81 MG TAB.CHEW PO (08:34)
--- NOTE | 2017-11-08 14:01 | CASEMGMT ---
Brief interview for mental status (BIMS) and resident mood interview (PHQ-9) completed on this day. BIMS score 15/15. PHQ-9 score 04/19
--- NOTE | 2017-11-08 14:56 | MDS.RN ---
Pain interview for AMELIA 11/10/17 completed.
[2017-11-08 15:26] VITALS: BP 135/64; PULSE 79; RESP 22; TEMP 35.8; O2SAT 92
--- NOTE | 2017-11-08 16:04 | PCM.PN.RX ---
<Jay Griffiths D - Last Filed: 11/08/17 16:04> Progress Note - Pharmacy Subjective: TCU Admission Objective: Allergies No Known Allergies Allergy (Verified 11/03/17 23:47) Home Medications Medication Instructions Recorded Clonidine HCl 0.1 tab PO DAILY 03/17/17 Fluoxetine [Prozac] 60 mg PO DAILY 03/17/17 Lorazepam [Ativan] 1 mg PO BID 03/17/17 Losartan Potassium 100 mg PO DAILY 03/17/17 Magnesium Oxide [Mag-Ox 400] 400 mg PO QHS 03/17/17 Pantoprazole Sodium [Protonix] 20 mg PO DAILY 03/17/17 Pramipexole Di-HCl [Pramipexole 0.75 mg PO QHS 03/17/17 Dihydrochloride] Simvastatin 40 mg PO QHS 03/17/17 Minoxidil [Loniten] 2.5 mg PO BID 10/19/17 Acetaminophen 650 mg PO Q6H PRN PRN 11/03/17 Aspirin [Aspirin, Baby] 81 mg PO DAILY@0800 11/03/17 Ipratropium/Albuterol Sulfate 3 ml INHALATION Q4H.RT 11/03/17 [Duoneb] Ondansetron HCl [Zofran] 4 mg PO Q8H PRN PRN 11/03/17 Oxycodone HCl [Roxicodone] 5 mg PO Q6H PRN PRN 11/03/17 Current Medications Generic Name Dose Route Start Last Admin Trade Name Freq PRN Reason Stop Dose Admin Acetaminophen 1,000 mg 11/03/17 20:51 11/05/17 20:25 Tylenol PO 1,000 mg Q8H PRN PRN Administration MILD PAIN (1-3/10) Albuterol/Ipratropium 3 ml 11/07/17 11:31 11/07/17 21:43 Duoneb INHALATION 3 ml Q6H.RT PRN Administration SOB &/OR WHEEZING Aspirin 81 mg 11/04/17 08:00 11/08/17 08:34 Aspirin, Baby PO 81 mg DAILY@0800 AP Administration Atorvastatin Calcium 20 mg 11/03/17 22:00 11/07/17 20:38 Lipitor PO 20 mg QHS AP Administration Bisacodyl 10 mg 11/03/17 20:50 11/04/17 21:32 Dulcolax PO 10 mg DAILY PRN Administration Constipation Clonidine 0.1 mg 11/04/17 06:00 11/08/17 04:57 Catapres PO 0.1 mg DAILY AP Administration Enoxaparin Sodium 40 mg 11/04/17 06:00 11/08/17 04:58 Lovenox SC 40 mg DAILY@0600 AP Administration Fluoxetine HCl 60 mg 11/04/17 06:00 11/08/17 04:56 Prozac PO 60 mg DAILY AP Administration Lorazepam 1 mg 11/04/17 06:00 11/08/17 04:56 Ativan PO 1 mg BID AP Administration Lorazepam 1 mg 11/06/17 08:11 11/07/17 20:37 Ativan PO 1 mg Q6H PRN PRN Administration ANXIETY Losartan Potassium 100 mg 11/04/17 06:00 11/08/17 04:57 Cozaar PO 100 mg DAILY AP Administration Magnesium Oxide 400 mg 11/03/17 22:00 11/07/17 20:37 Mag-Ox 400 PO 400 mg QHS AP Administration Minoxidil 2.5 mg 11/04/17 06:00 11/08/17 04:57 Loniten PO 2.5 mg BID AP Administration Morphine Sulfate 10 mg 11/04/17 07:29 11/07/17 20:37 Roxanol PO 10 mg Q2H PRN PRN Administration SEVERE PAIN (6-10/10) Multi-Ingredient Cream 1 applic 11/04/17 01:25 Eucerin TOPICAL BID PRN [facility] Protocol Nystatin 1 applic 11/04/17 06:00 11/08/17 04:58 Mycostatin Powder TOPICAL 1 applicatio BID AP Administration Protocol Ondansetron HCl 4 mg 11/03/17 20:07 11/07/17 19:31 Zofran Odt PO 4 mg Q8H PRN PRN Administration NAUSEA Oxycodone HCl 5 mg 11/03/17 20:51 11/06/17 05:27 Oxyir PO 5 mg Q6H PRN PRN Administration MODERATE PAIN (4-5/10) Pantoprazole Sodium 20 mg 11/04/17 06:00 11/08/17 04:57 Protonix PO 20 mg DAILY AP Administration Polyethylene Glycol 17 gm 11/04/17 06:00 11/08/17 04:57 Miralax PO 17 gm DAILY AP Administration Potassium Phos/Sodium Phos 1 packet 11/04/17 06:00 11/08/17 04:57 Neutra-Phos Packet PO 1 packet BID AP Administration Pramipexole Dihydrochloride 0.75 mg 11/03/17 22:00 11/07/17 20:38 Mirapex PO 0.75 mg QHS AP Administration Senna/Docusate Sodium 2 tablet 11/04/17 06:00 11/08/17 04:57 Senokot-S, Magali-Colace PO 2 tablet BID AP Administration Tuberculin PPD 5 tu 11/11/17 10:00 Tubersol, Aplisol, Ppd ID 11/11/17 10:01 X1 ONE Problem List Diaphragmatic hernia (Chronic) Diabetes mellitus (Chronic) Coronary artery disease (Chronic) Obesity (Chronic) GERD (gastroesophageal reflux disease) (Chronic) Vital Signs Temp Pulse Resp BP Pulse Ox 96.5 F L 79 22 H 135/64 H 92 11/08/17 15:26 11/08/17 15:26 11/08/17 15:26 11/08/17 15:26 11/08/17 15:26 Oxygen Flow Rate 1.5 Oxygen Delivery Method Room Air Weight: 81.15 kg Body Mass Index (BMI) 31.4 Finger Stick Blood Glucose 176 Sodium 136 mmol/L (136-145) 11/04/17 05:30 Potassium 3.6 mmol/L (3.5-5.1) 11/04/17 05:30 Chloride 97 mmol/L (98-107) L 11/04/17 05:30 Carbon Dioxide 34.0 mmol/L (21.0-32.0) H 11/04/17 05:30 Anion Gap 5 (5-15) 11/04/17 05:30 BUN 9 mg/dL (7-18) 11/04/17 05:30 Creatinine 0.61 mg/dL (0.55-1.02) 11/04/17 05:30 Est GFR (MDRD) Af Amer 121 mL/min (>60) 11/04/17 05:30 Est GFR (MDRD) Non-Af 100 mL/min (>60) 11/04/17 05:30 BUN/Creatinine Ratio 14.7 RATIO (10-20) 11/04/17 05:30 Glucose 107 mg/dL (74-106) H 11/04/17 05:30 Assessment/Plan: 1) Pain APAP for mild pain, oxycodone for moderate pain, morphine for severe pain. Continue to monitor prn medication use, daily pain scores. 2) HTN/CAD Clonidine, losartan, minoxidil, ASA, atorvastatin. BP/HR at goal, lipids at goal, hepatic enzymes wnl. Continue to monitor BP/HR, electrolytes, renal function, lipids, enzymes. 3) Pulm Duoneb aerosols scheduled. Continue to monitor for exacerbation. 4) DVT PPx Enoxaparin daily. Continue to monitor s/s bleeding/clot. 5) GI Pantoprazole daily, ondansetron prn. Continue to monitor s/s GI distress. 6) RLS Pramipexole at HS. Continue to monitor for RLS. 7) Derm Mineral Oil, nystatin powder topically. Continue to monitor clinically. 8) Nutrition Phosphate packets, MgOx. Continue to monitor electrolytes. Psychotropic Medications: 9) Depression/Anxiety Fluoxetine daily, lorazepam scheduled and prn. Continue to monitor prn medication use, s/s depression/anxiety. Unnecessary Medications: None Bowel Regimen: 10) PEG, senna/s, prn bisacodyl. Continue to monitor prn medication use, for constipation/diarrhea. Date of Note:: 11/08/17 - Provider Comments Provider responsibility: Provider responsible to enter orders to implement recommendations <Perez Moseley Chi - Last Filed: 11/08/17 17:27> Progress Note - Pharmacy Subjective: [] Objective: Allergies No Known Allergies Allergy (Verified 11/03/17 23:47) Home Medications Medication Instructions Recorded Clonidine HCl 0.1 tab PO DAILY 03/17/17 Fluoxetine [Prozac] 60 mg PO DAILY 03/17/17 Lorazepam [Ativan] 1 mg PO BID 03/17/17 Losartan Potassium 100 mg PO DAILY 03/17/17 Magnesium Oxide [Mag-Ox 400] 400 mg PO QHS 03/17/17 Pantoprazole Sodium [Protonix] 20 mg PO DAILY 03/17/17 Pramipexole Di-HCl [Pramipexole 0.75 mg PO QHS 03/17/17 Dihydrochloride] Simvastatin 40 mg PO QHS 03/17/17 Minoxidil [Loniten] 2.5 mg PO BID 10/19/17 Acetaminophen 650 mg PO Q6H PRN PRN 11/03/17 Aspirin [Aspirin, Baby] 81 mg PO DAILY@0800 11/03/17 Ipratropium/Albuterol Sulfate 3 ml INHALATION Q4H.RT 11/03/17 [Duoneb] Ondansetron HCl [Zofran] 4 mg PO Q8H PRN PRN 11/03/17 Oxycodone HCl [Roxicodone] 5 mg PO Q6H PRN PRN 11/03/17 Current Medications Generic Name Dose Route Start Last Admin Trade Name Freq PRN Reason Stop Dose Admin Acetaminophen 1,000 mg 11/03/17 20:51 11/05/17 20:25 Tylenol PO 1,000 mg Q8H PRN PRN Administration MILD PAIN (-12/01) Albuterol/Ipratropium 3 ml 11/07/17 11:31 11/07/17 21:43 Duoneb INHALATION 3 ml Q6H.RT PRN Administration SOB &/OR WHEEZING Aspirin 81 mg 11/04/17 08:00 11/08/17 08:34 Aspirin, Baby PO 81 mg DAILY@0800 AP Administration Atorvastatin Calcium 20 mg 11/03/17 22:00 11/07/17 20:38 Lipitor PO 20 mg QHS AP Administration Bisacodyl 10 mg 11/03/17 20:50 11/04/17 21:32 Dulcolax PO 10 mg DAILY PRN Administration Constipation Clonidine 0.1 mg 11/04/17 06:00 11/08/17 04:57 Catapres PO 0.1 mg DAILY AP Administration Enoxaparin Sodium 40 mg 11/04/17 06:00 11/08/17 04:58 Lovenox SC 40 mg DAILY@0600 AP Administration Fluoxetine HCl 60 mg 11/04/17 06:00 11/08/17 04:56 Prozac PO 60 mg DAILY AP Administration Lorazepam 1 mg 11/04/17 06:00 11/08/17 17:18 Ativan PO 1 mg BID AP Administration Lorazepam 1 mg 11/06/17 08:11 11/07/17 20:37 Ativan PO 1 mg Q6H PRN PRN Administration ANXIETY Losartan Potassium 100 mg 11/04/17 06:00 11/08/17 04:57 Cozaar PO 100 mg DAILY AP Administration Magnesium Oxide 400 mg 11/03/17 22:00 11/07/17 20:37 Mag-Ox 400 PO 400 mg QHS AP Administration Minoxidil 2.5 mg 11/04/17 06:00 11/08/17 17:18 Loniten PO 2.5 mg BID AP Administration Morphine Sulfate 10 mg 11/04/17 07:29 11/07/17 20:37 Roxanol PO 10 mg Q2H PRN PRN Administration SEVERE PAIN (6-10/10) Multi-Ingredient Cream 1 applic 11/04/17 01:25 Eucerin TOPICAL BID PRN [facility] Protocol Nystatin 1 applic 11/04/17 06:00 11/08/17 17:22 Mycostatin Powder TOPICAL 1 applicatio BID AP Administration Protocol Ondansetron HCl 4 mg 11/03/17 20:07 11/07/17 19:31 Zofran Odt PO 4 mg Q8H PRN PRN Administration NAUSEA Oxycodone HCl 5 mg 11/03/17 20:51 11/06/17 05:27 Oxyir PO 5 mg Q6H PRN PRN Administration MODERATE PAIN (4-5/10) Pantoprazole Sodium 20 mg 11/04/17 06:00 11/08/17 04:57 Protonix PO 20 mg DAILY AP Administration Polyethylene Glycol 17 gm 11/04/17 06:00 11/08/17 04:57 Miralax PO 17 gm DAILY AP Administration Potassium Phos/Sodium Phos 1 packet 11/04/17 06:00 11/08/17 17:20 Neutra-Phos Packet PO 1 packet BID AP Administration Pramipexole Dihydrochloride 0.75 mg 11/03/17 22:00 11/07/17 20:38 Mirapex PO 0.75 mg QHS AP Administration Senna/Docusate Sodium 2 tablet 11/04/17 06:00 11/08/17 17:19 Senokot-S, Magali-Colace PO 2 tablet BID AP Administration Tuberculin PPD 5 tu 11/11/17 10:00 Tubersol, Aplisol, Ppd ID 11/11/17 10:01 X1 ONE Problem List Diaphragmatic hernia (Chronic) Diabetes mellitus (Chronic) Coronary artery disease (Chronic) Obesity (Chronic) GERD (gastroesophageal reflux disease) (Chronic) Vital Signs Temp Pulse Resp BP Pulse Ox 96.5 F L 79 22 H 135/64 H 92 11/08/17 15:26 11/08/17 15:26 11/08/17 15:26 11/08/17 15:26 11/08/17 15:26 Oxygen Flow Rate 1.5 Oxygen Delivery Method Room Air Weight: 81.15 kg Body Mass Index (BMI) 31.4 Finger Stick Blood Glucose 176 Sodium 136 mmol/L (136-145) 11/04/17 05:30 Potassium 3.6 mmol/L (3.5-5.1) 11/04/17 05:30 Chloride 97 mmol/L (98-107) L 11/04/17 05:30 Carbon Dioxide 34.0 mmol/L (21.0-32.0) H 11/04/17 05:30 Anion Gap 5 (5-15) 11/04/17 05:30 BUN 9 mg/dL (7-18) 11/04/17 05:30 Creatinine 0.61 mg/dL (0.55-1.02) 11/04/17 05:30 Est GFR (MDRD) Af Amer 121 mL/min (>60) 11/04/17 05:30 Est GFR (MDRD) Non-Af 100 mL/min (>60) 11/04/17 05:30 BUN/Creatinine Ratio 14.7 RATIO (10-20) 11/04/17 05:30 Glucose 107 mg/dL (74-106) H 11/04/17 05:30 Assessment/Plan: Psychotropic Medications: Unnecessary Medications: Bowel Regimen: - Provider Comments Provider responsibility: Provider responsible to enter orders to implement recommendations Provider Comments to Recommendations by Pharmacy: Agree
[2017-11-08] MEDS: Ipratropium/Albuterol Sulfate 3 ML AMPUL.NEB INHALATION (17:51)
[2017-11-08 17:52] VITALS: PULSE 78; RESP 22; O2SAT 95
[2017-11-08] MEDS: Atorvastatin Calcium 20 MG Tablet PO (22:20)
[2017-11-08] MEDS: Pramipexole Di-HCl 0.25 MG Tablet 0.75 MG PO (22:20)
[2017-11-08] MEDS: Magnesium Oxide 400 MG Tablet PO (22:20)
[2017-11-08] MEDS: MELATONIN 10 MG TABLET PO (22:21)
[2017-11-08 22:33] VITALS: PULSE 80; O2SAT 94
[2017-11-09] MEDS: LORazepam 1 MG Tablet PO ×3 (05:53→21:06)
[2017-11-09] MEDS: FLUoxetine 20 MG Capsule 60 MG PO (05:54)
[2017-11-09] MEDS: Minoxidil 2.5 MG Tablet PO ×2 (05:54→17:28)
[2017-11-09] MEDS: Senna/Docusate Sodium 1 Tablet 2 TABLET PO ×2 (05:54→17:28)
[2017-11-09] MEDS: cloNIDine HCl 0.1 MG Tablet PO (05:54)
[2017-11-09] MEDS: Losartan Potassium 100 MG Tablet PO (05:54)
[2017-11-09] MEDS: Na Biphos/Potassium Phosphate PACKET 1 PACKET PO ×2 (05:54→17:29)
[2017-11-09] MEDS: Pantoprazole Sodium 20 MG Tablet PO (05:54)
[2017-11-09] MEDS: Enoxaparin 40 MG/0.4 ML Syringe SC (05:57)
[2017-11-09] MEDS: Polyethylene Glycol 3350 17 GM PACKET PO (06:03)
[2017-11-09] MEDS: Nystatin Powder 15gm Bottle 1 APPLIC TOPICAL ×2 (06:04→20:55)
[2017-11-09] MEDS: Aspirin 81 MG TAB.CHEW PO (08:06)
[2017-11-09] MEDS: Ondansetron ODT 4 MG Tablet PO (08:06)
[2017-11-09 10:00] VITALS: PULSE 75; RESP 20; O2SAT 94
[2017-11-09] MEDS: Bisacodyl 5 MG Tablet 10 MG PO (10:08)
[2017-11-09] MEDS: Ipratropium/Albuterol Sulfate 3 ML AMPUL.NEB INHALATION (10:23)
[2017-11-09 10:24] VITALS: PULSE 82; RESP 18; O2SAT 95
[2017-11-09 16:00] VITALS: BP 116/66; PULSE 77; RESP 16; TEMP 37; O2SAT 94
[2017-11-09] MEDS: Pramipexole Di-HCl 0.25 MG Tablet 0.75 MG PO (20:57)
[2017-11-09] MEDS: MELATONIN 10 MG TABLET PO (20:59)
[2017-11-09] MEDS: Magnesium Oxide 400 MG Tablet PO (21:00)
[2017-11-09] MEDS: Atorvastatin Calcium 20 MG Tablet PO (21:01)
[2017-11-09] MEDS: Acetaminophen 500 MG Tablet 1000 MG PO (22:21)
[2017-11-09] MEDS: oxyCODONE 5 MG Tablet PO (22:22)
[2017-11-10 06:35] VITALS: O2SAT 94
[2017-11-10] MEDS: Losartan Potassium 100 MG Tablet PO (06:45)
[2017-11-10] MEDS: Minoxidil 2.5 MG Tablet PO ×2 (06:45→17:39)
[2017-11-10] MEDS: cloNIDine HCl 0.1 MG Tablet PO (06:45)
[2017-11-10] MEDS: LORazepam 1 MG Tablet PO ×3 (06:45→20:56)
[2017-11-10] MEDS: Nystatin Powder 15gm Bottle 1 APPLIC TOPICAL ×2 (06:45→17:40)
[2017-11-10] MEDS: Enoxaparin 40 MG/0.4 ML Syringe SC (06:45)
[2017-11-10] MEDS: FLUoxetine 20 MG Capsule 60 MG PO (06:46)
[2017-11-10] MEDS: Na Biphos/Potassium Phosphate PACKET 1 PACKET PO ×2 (06:46→17:39)
[2017-11-10] MEDS: Pantoprazole Sodium 20 MG Tablet PO (06:46)
[2017-11-10] MEDS: Aspirin 81 MG TAB.CHEW PO (08:15)
[2017-11-10 10:45] VITALS: PULSE 76; RESP 18; O2SAT 95
[2017-11-10] MEDS: Ondansetron ODT 4 MG Tablet PO (11:00)
[2017-11-10] MEDS: oxyCODONE 5 MG Tablet PO ×2 (11:03→17:38)
[2017-11-10 16:00] VITALS: BP 146/73; PULSE 82; RESP 20; TEMP 36.6; O2SAT 90
[2017-11-10 17:45] VITALS: O2SAT 93
[2017-11-10] MEDS: MELATONIN 10 MG TABLET PO (20:47)
[2017-11-10] MEDS: Pramipexole Di-HCl 0.25 MG Tablet 0.75 MG PO (20:48)
[2017-11-10] MEDS: Magnesium Oxide 400 MG Tablet PO (20:48)
[2017-11-10] MEDS: Atorvastatin Calcium 20 MG Tablet PO (20:49)
[2017-11-11] MEDS: LORazepam 1 MG Tablet PO ×3 (04:48→21:30)
[2017-11-11] MEDS: Polyethylene Glycol 3350 17 GM PACKET PO (04:49)
[2017-11-11] MEDS: Losartan Potassium 100 MG Tablet PO (04:49)
[2017-11-11] MEDS: cloNIDine HCl 0.1 MG Tablet PO (04:49)
[2017-11-11] MEDS: Minoxidil 2.5 MG Tablet PO ×2 (04:49→17:21)
[2017-11-11] MEDS: FLUoxetine 20 MG Capsule 60 MG PO (04:49)
[2017-11-11] MEDS: Nystatin Powder 15gm Bottle 1 APPLIC TOPICAL ×2 (04:50→17:21)
[2017-11-11] MEDS: Na Biphos/Potassium Phosphate PACKET 1 PACKET PO ×2 (04:50→17:21)
[2017-11-11] MEDS: Senna/Docusate Sodium 1 Tablet 2 TABLET PO ×2 (04:50→17:21)
[2017-11-11] MEDS: Pantoprazole Sodium 20 MG Tablet PO (04:50)
[2017-11-11] MEDS: Enoxaparin 40 MG/0.4 ML Syringe SC (05:00)
[2017-11-11] MEDS: Ondansetron ODT 4 MG Tablet PO (05:02)
[2017-11-11 06:47] LABS: Absolute Lymphocyte Count 1.32 X10^3/ul (0.83-4.51); Absolute Neutrophil Count 3.9 X10^3/uL (2.0-7.7); Basophil# 0.04 X10^3/uL; Basophil% 0.7 % (0-1); Eosinophil# 0.24 X10^3/uL; Hematocrit 35.1 % (37-47); Hemoglobin 11.6 g/dl (12.0-15.0); Lymphocyte # 1.32 X10^3/ul (4.0); Lymphocyte % 21.8 % (19-41); Mean Corpuscular Volume 90.7 fL (81-99); Mean Platelet Vol. 8.7 fl (6.2-12.0); Monocyte% 8.3 % (0-10); Neutrophil # 3.94 X10^3/uL (2.7-7.7); Platelet Count 315 K/mm3 (150-450); RBC Distribution Width CV 13.6 % (11.6-14.6); RBC Distribution Width SD 44.2 fl (35.1-43.9); Red Blood Count 3.87 M/mm3 (4.2-5.4); White Blood Count 6.1 K/mm3 (4.4-11.0)
[2017-11-11 06:50] LABS: POSITIVE COUNT NO; POSITIVE DIFFERENTIAL NO; POSITIVE MORPHOLOGY NO
[2017-11-11 06:51] VITALS: O2SAT 93
[2017-11-11 07:16] LABS: Anion Gap 5 (5-15); BUN 9 mg/dL (7-18); BUN/Creat Ratio 12.1 RATIO (10-20); Calcium,Total 8.8 mg/dL (8.5-10.1); Chloride 97 mmol/L (98-107); Creatinine, Serum 0.75 mg/dL (0.55-1.02); EST Glomerular Filtration Rate 80 mL/min (>60); Est Glom Filt Rate - Afr Amer 96 mL/min (>60); Estimated Creatinine Clearance 39.39 ml/min; Glucose 106 mg/dL (74-106); Potassium 4.2 mmol/L (3.5-5.1); Sodium Level 132 mmol/L (136-145)
[2017-11-11] MEDS: Aspirin 81 MG TAB.CHEW PO (07:51)
[2017-11-11 10:00] VITALS: PULSE 71; RESP 18; O2SAT 96
[2017-11-11] MEDS: oxyCODONE 5 MG Tablet PO (10:01)
--- NOTE | 2017-11-11 13:39 | NURSING ---
Addendum entered by Marily Murray 11/11/17 14:50: new order received Original Note: Son requesting that pt zofran be changed to phenergan, it is more effective for her.
[2017-11-11 15:36] VITALS: BP 117/66; PULSE 74; RESP 16; TEMP 36.5; O2SAT 95
[2017-11-11] MEDS: Magnesium Oxide 400 MG Tablet PO (21:57)
[2017-11-11] MEDS: Atorvastatin Calcium 20 MG Tablet PO (21:57)
[2017-11-11] MEDS: Pramipexole Di-HCl 0.25 MG Tablet 0.75 MG PO (21:58)
[2017-11-11] MEDS: MELATONIN 10 MG TABLET PO (21:58)
[2017-11-12] MEDS: LORazepam 1 MG Tablet PO ×3 (05:05→20:33)
[2017-11-12] MEDS: cloNIDine HCl 0.1 MG Tablet PO (05:06)
[2017-11-12] MEDS: Minoxidil 2.5 MG Tablet PO ×2 (05:06→17:17)
[2017-11-12] MEDS: Polyethylene Glycol 3350 17 GM PACKET PO (05:06)
[2017-11-12] MEDS: Losartan Potassium 100 MG Tablet PO (05:06)
[2017-11-12] MEDS: Pantoprazole Sodium 20 MG Tablet PO (05:07)
[2017-11-12] MEDS: Na Biphos/Potassium Phosphate PACKET 1 PACKET PO ×2 (05:07→17:17)
[2017-11-12] MEDS: Nystatin Powder 15gm Bottle 1 APPLIC TOPICAL ×2 (05:07→20:40)
[2017-11-12] MEDS: Senna/Docusate Sodium 1 Tablet 2 TABLET PO ×2 (05:07→17:17)
[2017-11-12] MEDS: FLUoxetine 20 MG Capsule 60 MG PO (05:07)
[2017-11-12] MEDS: Enoxaparin 40 MG/0.4 ML Syringe SC (05:08)
[2017-11-12 06:45] VITALS: O2SAT 95
[2017-11-12] MEDS: Aspirin 81 MG TAB.CHEW PO (08:15)
[2017-11-12 10:00] VITALS: PULSE 92; RESP 18; O2SAT 93
[2017-11-12 10:40] VITALS: PULSE 81; RESP 24
[2017-11-12] MEDS: Ipratropium/Albuterol Sulfate 3 ML AMPUL.NEB INHALATION (10:40)
[2017-11-12] MEDS: Acetaminophen 500 MG Tablet 1000 MG PO (10:45)
--- NOTE | 2017-11-12 10:57 | CASEMGMT ---
Social Work Spoke with resident and resident son in room. This bilingual social worker communicating to resident that discharge date has been set for 11/17/17. Resident agreeable to discharge date and plans to discharge home alone with continued home health services. Support given. Proposed discharge date: 11/17/17 PLAN: Discharge home alone with home health care. Rebecca CHEATHAM, METAL DOOR ASSEMBLER
[2017-11-12 15:11] VITALS: BP 128/69; PULSE 104; RESP 24; TEMP 36.8; O2SAT 96
[2017-11-12] MEDS: Magnesium Oxide 400 MG Tablet PO (20:32)
[2017-11-12] MEDS: MELATONIN 10 MG TABLET PO (20:32)
[2017-11-12] MEDS: Atorvastatin Calcium 20 MG Tablet PO (20:32)
[2017-11-12] MEDS: Pramipexole Di-HCl 0.25 MG Tablet 0.75 MG PO (20:33)
[2017-11-13] MEDS: oxyCODONE 5 MG Tablet PO ×2 (01:38→20:01)
[2017-11-13] MEDS: FLUoxetine 20 MG Capsule 60 MG PO (05:34)
[2017-11-13] MEDS: Senna/Docusate Sodium 1 Tablet 2 TABLET PO ×2 (05:34→17:31)
[2017-11-13] MEDS: LORazepam 1 MG Tablet PO ×3 (05:34→21:06)
[2017-11-13] MEDS: Pantoprazole Sodium 20 MG Tablet PO (05:34)
[2017-11-13] MEDS: Minoxidil 2.5 MG Tablet PO ×2 (05:34→17:31)
[2017-11-13] MEDS: cloNIDine HCl 0.1 MG Tablet PO (05:34)
[2017-11-13] MEDS: Na Biphos/Potassium Phosphate PACKET 1 PACKET PO ×2 (05:34→17:31)
[2017-11-13] MEDS: Enoxaparin 40 MG/0.4 ML Syringe SC (05:35)
[2017-11-13] MEDS: Losartan Potassium 100 MG Tablet PO (05:41)
[2017-11-13] MEDS: Polyethylene Glycol 3350 17 GM PACKET PO (05:42)
[2017-11-13] MEDS: Nystatin Powder 15gm Bottle 1 APPLIC TOPICAL ×2 (05:42→19:59)
[2017-11-13 08:02] VITALS: O2SAT 96
[2017-11-13] MEDS: Aspirin 81 MG TAB.CHEW PO (08:09)
--- NOTE | 2017-11-13 08:50 | PCM.DC ---
- Discharge Diagnoses Current Active Problems: Current Active and Chronic Problems Diaphragmatic hernia (Chronic) Diabetes mellitus (Chronic) Coronary artery disease (Chronic) Obesity (Chronic) GERD (gastroesophageal reflux disease) (Chronic) You will use the following diet at home:: No restrictions, Regular Your food should be the consistency of: Regular Your liquids should be the consistency of: Regular/Thin Discharge Activity: Return to Normal Activity, Use Walker Weight Bearing Status: Weight bearing as tolerated Call your doctor if you observe: Fever of 101 or Higher, Inability to urinate, Inability to have a bowel movement, Shortness of breath, Chest pain, Uncontrolled pain Allergies/Adverse Reactions: Allergies No Known Allergies Allergy (Verified 11/03/17 23:47) Medications to take at Discharge Clonidine HCl 0.1 tab PO DAILY 03/17/17 Fluoxetine [Prozac] 60 mg PO DAILY 03/17/17 Lorazepam [Ativan] 1 mg PO BID 03/17/17 Losartan Potassium 100 mg PO DAILY 03/17/17 Magnesium Oxide [Mag-Ox 400] 400 mg PO QHS 03/17/17 Pantoprazole Sodium [Protonix] 20 mg PO DAILY 03/17/17 Pramipexole Di-HCl [Pramipexole Dihydrochloride] 0.75 mg PO QHS 03/17/17 Simvastatin 40 mg PO QHS 03/17/17 Minoxidil [Loniten] 2.5 mg PO BID 10/19/17 Aspirin [Aspirin, Baby] 81 mg PO DAILY@0800 11/03/17 Ipratropium/Albuterol Sulfate [Duoneb] 3 ml INHALATION Q4H.RT 11/03/17 Acetaminophen [Tylenol] 1,000 mg PO Q8H PRN PRN tablet 11/13/17 Ipratropium/Albuterol Sulfate [Duoneb] 3 ml INHALATION Q6H.RT PRN #120 ampul.neb 11/13/17 Melatonin 10 mg PO QHS tablet 11/13/17 Mineral Oil/Petrolatum,White [Eucerin] 1 applic TOPICAL BID PRN jar 11/13/17 Nystatin Powder [Mycostatin Powder] 1 applic TOPICAL BID bottle 11/13/17 Oxycodone HCl [Roxicodone] 5 mg PO Q6H PRN PRN #30 tablet 11/13/17 Polyethylene Glycol 3350 [Miralax] 17 gm PO DAILY #30 packet 11/13/17 ProMETHAzine [Phenergan] 25 mg PO Q6H PRN PRN #120 tab 11/13/17 The following prescriptions were given: Ipratropium/Albuterol Sulfate [Duoneb] 3 ml INHALATION Q6H.RT PRN #120 ampul.neb PRN Reason: SOB &/OR WHEEZING Oxycodone HCl [Roxicodone] 5 mg PO Q6H PRN PRN #30 tablet PRN Reason: Pain ProMETHAzine [Phenergan] 25 mg PO Q6H PRN PRN #120 tab PRN Reason: Nausea/Vomiting Polyethylene Glycol 3350 [Miralax] 17 gm PO DAILY #30 packet Primary Care Physician: Jose L Valenzuela MD [Primary Care Provider] - Please follow up with your Primary Care Physician in: 1 week. Please Follow Up With: Dr. Bar When: [phone] Proposed Discharge Date: 11/17/17
--- NOTE | 2017-11-13 08:51 | PCM.DC.SUM ---
Discharge Date and Diagnosis Date of Admission: 11/03/17 Date of Discharge: 11/17/17 - Secondary Discharge Diagnosis Chronic Problems Diaphragmatic hernia (Chronic) Diabetes mellitus (Chronic) Coronary artery disease (Chronic) Obesity (Chronic) GERD (gastroesophageal reflux disease) (Chronic) Hx of appendectomy (Chronic) Benign essential HTN (Chronic) Depression (Chronic) HLD (hyperlipidemia) (Chronic) Overweight (BMI 25.0-29.9) (Chronic) CAD (coronary artery disease) (Chronic) Diabetes mellitus, type II (Chronic) Hyponatremia (Chronic) also has chronic mild hyponatremia Traumatic closed nondisplaced fracture of neck of left femur (Chronic) Status post closed reduction with internal fixation (Chronic) left femur 06/22, Dr Spears, [facility] Tinea unguium (Chronic) Dyskinesia, 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 New small bilateral pleural effusions with adjacent atelectasis/consolidation. No abnormality in the lung apices. at 1942 Reported and signed by: Kellen Kelly MD Electronically Signed: Kellen Kelly MD at 18:41 EST Tel , Service support , Renal Ultrasound 11/05/17 09:23 IMPRESSION: Limited evaluation of the left kidney due to overlying bowel gas. Stable nodular density in the superior posterolateral aspect of the left kidney most likely representing a complex cyst. Electronically Signed: Fan Benavidez MD at 11:17 EST Tel [phone], Service support , Operations: None Procedures: None Summary of Care Provided: The patient is a 77 year old Female with complex past medical history hospitalized for abdominal pain secondary to strangulated diaphragmatic hernia with gangrene, treated non-operatively, complicated left renal mass suspicious for renal cell carcinoma, admitted to TCU for rehabilitation, strengthening. Renal mass stable on renal ultrasound, unlikely to be worrisome. Appointment with Dr. Bar regarding diaphragmatic hernia 11/14/2017, to decide surgery or not. [] Will discharge home alone. Home health ordered. Discharge Diet: No Restrictions Discharge Activity: Return to Normal Activity, Use Walker Weight Bearing Status: Weight bearing as tolerated Call your doctor if you observe: Fever of 101 or Higher, Inability to urinate, Inability to have a bowel movement, Shortness of breath, Chest pain, Uncontrolled pain Home Medications: Medications to take at Discharge Clonidine HCl 0.1 tab PO DAILY 03/17/17 Fluoxetine [Prozac] 60 mg PO DAILY 03/17/17 Lorazepam [Ativan] 1 mg PO BID 03/17/17 Losartan Potassium 100 mg PO DAILY 03/17/17 Magnesium Oxide [Mag-Ox 400] 400 mg PO QHS 03/17/17 Pantoprazole Sodium [Protonix] 20 mg PO DAILY 03/17/17 Pramipexole Di-HCl [Pramipexole Dihydrochloride] 0.75 mg PO QHS 03/17/17 Simvastatin 40 mg PO QHS 03/17/17 Minoxidil [Loniten] 2.5 mg PO BID 10/19/17 Aspirin [Aspirin, Baby] 81 mg PO DAILY@0800 11/03/17 Ipratropium/Albuterol Sulfate [Duoneb] 3 ml INHALATION Q4H.RT 11/03/17 Acetaminophen [Tylenol] 1,000 mg PO Q8H PRN PRN tablet 11/13/17 Ipratropium/Albuterol Sulfate [Duoneb] 3 ml INHALATION Q6H.RT PRN #120 ampul.neb 11/13/17 Melatonin 10 mg PO QHS tablet 11/13/17 Mineral Oil/Petrolatum,White [Eucerin] 1 applic TOPICAL BID PRN jar 11/13/17 Nystatin Powder [Mycostatin Powder] 1 applic TOPICAL BID bottle 11/13/17 Oxycodone HCl [Roxicodone] 5 mg PO Q6H PRN PRN #30 tablet 02/20/18 Polyethylene Glycol 3350 [Miralax] 17 gm PO DAILY #30 packet 11/13/17 ProMETHAzine [Phenergan] 25 mg PO Q6H PRN PRN #120 tab 11/13/17 Following Prescrptions Were Given to Patient: Ipratropium/Albuterol Sulfate [Duoneb] 3 ml INHALATION Q6H.RT PRN #120 ampul.neb PRN Reason: SOB &/OR WHEEZING Oxycodone HCl [Roxicodone] 5 mg PO Q6H PRN PRN #30 tablet PRN Reason: Pain ProMETHAzine [Phenergan] 25 mg PO Q6H PRN PRN #120 tab PRN Reason: Nausea/Vomiting Polyethylene Glycol 3350 [Miralax] 17 gm PO DAILY #30 packet Primary Care Physician: Jose L Valenzuela MD [Primary Care Provider] - Please follow up with your Primary Care Physician in: 1 week. Please Follow Up With: Dr. Bar When: [phone] Disposition: Home with Home Health Minutes spent on discharge:: 35 Patient Condition:: Stable Meaningful Use Info Meaningful Use Diagnoses (Choose all that apply): None applicable
--- NOTE | 2017-11-13 08:57 | DS.PCM_ITS ---
Discharge Date and Diagnosis Date of Admission: 11/03/17 Date of Discharge: 11/17/17 - Secondary Discharge Diagnosis Chronic Problems Diaphragmatic hernia (Chronic) Diabetes mellitus (Chronic) Coronary artery disease (Chronic) Obesity (Chronic) GERD (gastroesophageal reflux disease) (Chronic) Hx of appendectomy (Chronic) Benign essential HTN (Chronic) Depression (Chronic) HLD (hyperlipidemia) (Chronic) Overweight (BMI 25.0-29.9) (Chronic) CAD (coronary artery disease) (Chronic) Diabetes mellitus, type II (Chronic) Hyponatremia (Chronic) also has chronic mild hyponatremia Traumatic closed nondisplaced fracture of neck of left femur (Chronic) Status post closed reduction with internal fixation (Chronic) left femur 06/22, Dr Spears, [facility] Tinea unguium (Chronic) Dyskinesia, 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 New small bilateral pleural effusions with adjacent atelectasis/consolidation. No abnormality in the lung apices. at 1942 Reported and signed by: Kellen Kelly MD Electronically Signed: Kellen Kelly MD at 18:41 EST Tel , Service support , Renal Ultrasound 11/05/17 09:23 IMPRESSION: Limited evaluation of the left kidney due to overlying bowel gas. Stable nodular density in the superior posterolateral aspect of the left kidney most likely representing a complex cyst. Electronically Signed: Fan Benavidez MD at 11:17 EST Tel [phone], Service support , Operations: None Procedures: None Summary of Care Provided: The patient is a 77 year old Female with complex past medical history hospitalized for abdominal pain secondary to strangulated diaphragmatic hernia with gangrene, treated non-operatively, complicated left renal mass suspicious for renal cell carcinoma, admitted to TCU for rehabilitation, strengthening. Renal mass stable on renal ultrasound, unlikely to be worrisome. Appointment with Dr. Bar regarding diaphragmatic hernia 11/14/2017, to decide surgery or not. [] Will discharge home alone. Home health ordered. Discharge Diet: No Restrictions Discharge Activity: Return to Normal Activity, Use Walker Weight Bearing Status: Weight bearing as tolerated Call your doctor if you observe: Fever of 101 or Higher, Inability to urinate, Inability to have a bowel movement, Shortness of breath, Chest pain, Uncontrolled pain Home Medications: Medications to take at Discharge Clonidine HCl 0.1 tab PO DAILY 03/17/17 Fluoxetine [Prozac] 60 mg PO DAILY 03/17/17 Lorazepam [Ativan] 1 mg PO BID 03/17/17 Losartan Potassium 100 mg PO DAILY 03/17/17 Magnesium Oxide [Mag-Ox 400] 400 mg PO QHS 03/17/17 Pantoprazole Sodium [Protonix] 20 mg PO DAILY 03/17/17 Pramipexole Di-HCl [Pramipexole Dihydrochloride] 0.75 mg PO QHS 03/17/17 Simvastatin 40 mg PO QHS 03/17/17 Minoxidil [Loniten] 2.5 mg PO BID 10/19/17 Aspirin [Aspirin, Baby] 81 mg PO DAILY@0800 11/03/17 Ipratropium/Albuterol Sulfate [Duoneb] 3 ml INHALATION Q4H.RT 11/03/17 Acetaminophen [Tylenol] 1,000 mg PO Q8H PRN PRN tablet 11/13/17 Ipratropium/Albuterol Sulfate [Duoneb] 3 ml INHALATION Q6H.RT PRN #120 ampul.neb 11/13/17 Melatonin 10 mg PO QHS tablet 11/13/17 Mineral Oil/Petrolatum,White [Eucerin] 1 applic TOPICAL BID PRN jar 11/13/17 Nystatin Powder [Mycostatin Powder] 1 applic TOPICAL BID bottle 11/13/17 Oxycodone HCl [Roxicodone] 5 mg PO Q6H PRN PRN #30 tablet 02/20/18 Polyethylene Glycol 3350 [Miralax] 17 gm PO DAILY #30 packet 11/13/17 ProMETHAzine [Phenergan] 25 mg PO Q6H PRN PRN #120 tab 11/13/17 Following Prescrptions Were Given to Patient: Ipratropium/Albuterol Sulfate [Duoneb] 3 ml INHALATION Q6H.RT PRN #120 ampul.neb PRN Reason: SOB &/OR WHEEZING Oxycodone HCl [Roxicodone] 5 mg PO Q6H PRN PRN #30 tablet PRN Reason: Pain ProMETHAzine [Phenergan] 25 mg PO Q6H PRN PRN #120 tab PRN Reason: Nausea/Vomiting Polyethylene Glycol 3350 [Miralax] 17 gm PO DAILY #30 packet Primary Care Physician: Jose L Valenzuela MD [Primary Care Provider] - Please follow up with your Primary Care Physician in: 1 week. Please Follow Up With: Dr. Bar When: [phone] Disposition: Home with Home Health Minutes spent on discharge:: 35 Patient Condition:: Stable Meaningful Use Info Meaningful Use Diagnoses (Choose all that apply): None applicable
--- NOTE | 2017-11-13 08:58 | HHNOTE_ITS ---
Home Health Note - Plan Overview of reason of hospitalization: The patient is a 77 year old Female with complex past medical history hospitalized for abdominal pain secondary to strangulated diaphragmatic hernia with gangrene, treated non-operatively, complicated left renal mass suspicious for renal cell carcinoma, admitted to TCU for rehabilitation, strengthening. Renal mass stable on renal ultrasound, unlikely to be worrisome. Appointment with Dr. Bar regarding diaphragmatic hernia 11/14/2017, to decide surgery or not. [] Will discharge home alone. Home health ordered. Problems: Patient was seen for Diaphragmatic hernia (Chronic) Diabetes mellitus (Chronic) Coronary artery disease (Chronic) Obesity (Chronic) GERD (gastroesophageal reflux disease) (Chronic) Complete List of Medical Problems Diaphragmatic hernia (Chronic) Diabetes mellitus (Chronic) Coronary artery disease (Chronic) Obesity (Chronic) GERD (gastroesophageal reflux disease) (Chronic) Hx of appendectomy (Chronic) Benign essential HTN (Chronic) Depression (Chronic) HLD (hyperlipidemia) (Chronic) Overweight (BMI 25.0-29.9) (Chronic) CAD (coronary artery disease) (Chronic) Diabetes mellitus, type II (Chronic) Hyponatremia (Chronic) Traumatic closed nondisplaced fracture of neck of left femur (Chronic) Status post closed reduction with internal fixation (Chronic) Tinea unguium (Chronic) Dyskinesia, tardive (Chronic) Status post total hip replacement, left (Acute) Confusion (Acute) Takatsuki syndrome (Chronic) Brain aneurysm (Chronic) Influenza (Acute) Takotsubo syndrome (Chronic) Hypertension (Chronic) Diabetic neuropathy (Acute) Gastroenteritis (Acute) Hypoxia (Acute) Generalized weakness (Acute) Abdominal pain (Acute) - Requirements and Reasons Disciplines Needed/Ordered: Physical Therapy Reason for Disciplines: Gait Training, Stair Training, Fall Prevention, Home Safety/Equipment Instruction, Balance and/or Posture Training, Transfer Training Related To: Limited/Poor Endurance, Shortness of Breath with Activity, Physical Impairments, Unsteady Gait/Balance, Fall Risk Patient is unable to leave the home: Without Aid of Supportive Devices (crutches , cane, wheelchair, walker), Without the assistance of another person - Additional Disciplines Additional Disciplines Needed/Ordered: Occupational Therapy
[2017-11-13] MEDS: Bisacodyl 5 MG Tablet 10 MG PO (09:27)
[2017-11-13 09:34] VITALS: PULSE 97; RESP 18; O2SAT 92
--- NOTE | 2017-11-13 11:12 | CASEMGMT ---
Social Work Spoke with resident in room. Resident son present as well. This socia worker collaborating with resident on home health services company as physical and occupational therapy are recommending for resident to have continued services within the home. Resident is agreeable to home health care and requesting for home health services to be set up through [facility] ([facility]). Resident reporting to have needed durable medical equipment already set up within the home. Resident plans to discharge home alone with son to assist as possible. Resident son to provide transportation home for resident at time of discharge. Support given. Telephone call to [facility], [place]. This social staff worker making referral for physical and occupational therapy. Order completed. Proposed discharge date: 11/17/17 PLAN: Discharge home alone with home health services. Rebecca CHEATHAM, APPEALS OFFICER
[2017-11-13 15:22] VITALS: BP 117/68; PULSE 83; RESP 16; TEMP 36.6; O2SAT 93
[2017-11-13] MEDS: MELATONIN 10 MG TABLET PO (21:03)
[2017-11-13] MEDS: Pramipexole Di-HCl 0.25 MG Tablet 0.75 MG PO (21:04)
[2017-11-13] MEDS: Magnesium Oxide 400 MG Tablet PO (21:05)
[2017-11-13] MEDS: Atorvastatin Calcium 20 MG Tablet PO (21:05)
[2017-11-14] MEDS: Pantoprazole Sodium 20 MG Tablet PO (06:08)
[2017-11-14] MEDS: LORazepam 1 MG Tablet PO ×3 (06:08→21:22)
[2017-11-14] MEDS: Na Biphos/Potassium Phosphate PACKET 1 PACKET PO ×2 (06:09→18:09)
[2017-11-14] MEDS: Enoxaparin 40 MG/0.4 ML Syringe SC (06:10)
[2017-11-14] MEDS: Polyethylene Glycol 3350 17 GM PACKET PO (06:10)
[2017-11-14] MEDS: cloNIDine HCl 0.1 MG Tablet PO (06:11)
[2017-11-14] MEDS: Losartan Potassium 100 MG Tablet PO (06:11)
[2017-11-14] MEDS: Minoxidil 2.5 MG Tablet PO ×2 (06:11→18:09)
[2017-11-14] MEDS: FLUoxetine 20 MG Capsule 60 MG PO (06:12)
[2017-11-14] MEDS: Nystatin Powder 15gm Bottle 1 APPLIC TOPICAL ×2 (06:12→21:23)
[2017-11-14] MEDS: Senna/Docusate Sodium 1 Tablet 2 TABLET PO ×2 (06:13→18:08)
[2017-11-14] MEDS: oxyCODONE 5 MG Tablet PO (06:13)
[2017-11-14] MEDS: Aspirin 81 MG TAB.CHEW PO (07:57)
[2017-11-14 07:59] VITALS: O2SAT 98
[2017-11-14 08:57] VITALS: PULSE 72; RESP 16; O2SAT 92
[2017-11-14] MEDS: Ipratropium/Albuterol Sulfate 3 ML AMPUL.NEB INHALATION (10:12)
--- NOTE | 2017-11-14 13:11 | CASEMGMT ---
Insurance Clinical information faxed. Pending continued stay approval at this time. Auth#[id number] Rebecca CHEATHAM, [employer] SUPERVISOR
--- NOTE | 2017-11-14 18:06 | NURSING ---
PT RETURNED FROM APPT, NEW ORDER FOR HER TO F/U WITH [facility] [place] FOR POSSIBLE SURGERY THEN. SON AWARE AND PT WILL DEAL WITH THAT.
[2017-11-14] MEDS: Atorvastatin Calcium 20 MG Tablet PO (21:19)
[2017-11-14] MEDS: Pramipexole Di-HCl 0.25 MG Tablet 0.75 MG PO (21:19)
[2017-11-14] MEDS: Magnesium Oxide 400 MG Tablet PO (21:19)
[2017-11-14] MEDS: MELATONIN 10 MG TABLET PO (21:19)
[2017-11-15] MEDS: oxyCODONE 5 MG Tablet PO ×2 (00:01→21:33)
[2017-11-15] MEDS: Senna/Docusate Sodium 1 Tablet 2 TABLET PO (06:17)
[2017-11-15] MEDS: FLUoxetine 20 MG Capsule 60 MG PO (06:18)
[2017-11-15] MEDS: Na Biphos/Potassium Phosphate PACKET 1 PACKET PO ×2 (06:18→17:02)
[2017-11-15] MEDS: cloNIDine HCl 0.1 MG Tablet PO (06:18)
[2017-11-15] MEDS: Polyethylene Glycol 3350 17 GM PACKET PO (06:18)
[2017-11-15] MEDS: Losartan Potassium 100 MG Tablet PO (06:18)
[2017-11-15] MEDS: Minoxidil 2.5 MG Tablet PO ×2 (06:18→17:02)
[2017-11-15] MEDS: Pantoprazole Sodium 20 MG Tablet PO (06:18)
[2017-11-15] MEDS: LORazepam 1 MG Tablet PO ×3 (06:18→21:23)
[2017-11-15] MEDS: Enoxaparin 40 MG/0.4 ML Syringe SC (06:18)
[2017-11-15] MEDS: Nystatin Powder 15gm Bottle 1 APPLIC TOPICAL ×2 (06:19→17:04)
[2017-11-15 06:50] VITALS: O2SAT 91
[2017-11-15] MEDS: Aspirin 81 MG TAB.CHEW PO (07:50)
[2017-11-15 09:27] VITALS: PULSE 70; RESP 18; O2SAT 95
--- NOTE | 2017-11-15 14:07 | MDS.RN ---
Information for the mds was obtained from review of the clinical record, interview of resident, staff, and direct observation of resident's care.
[2017-11-15 15:56] VITALS: BP 105/60; PULSE 87; RESP 18; TEMP 36.4; O2SAT 96
[2017-11-15] MEDS: Magnesium Oxide 400 MG Tablet PO (21:23)
[2017-11-15] MEDS: Pramipexole Di-HCl 0.25 MG Tablet 0.75 MG PO (21:24)
[2017-11-15] MEDS: MELATONIN 10 MG TABLET PO (21:24)
[2017-11-15] MEDS: Atorvastatin Calcium 20 MG Tablet PO (21:25)
[2017-11-16] MEDS: oxyCODONE 5 MG Tablet PO ×2 (04:52→14:19)
[2017-11-16] MEDS: LORazepam 1 MG Tablet PO ×3 (04:53→21:19)
[2017-11-16] MEDS: FLUoxetine 20 MG Capsule 60 MG PO (04:54)
[2017-11-16] MEDS: Losartan Potassium 100 MG Tablet PO (04:54)
[2017-11-16] MEDS: Senna/Docusate Sodium 1 Tablet 2 TABLET PO ×2 (04:54→17:07)
[2017-11-16] MEDS: Spironolactone 25 MG Tablet PO (04:54)
[2017-11-16] MEDS: cloNIDine HCl 0.1 MG Tablet PO (04:54)
[2017-11-16] MEDS: Pantoprazole Sodium 20 MG Tablet PO (04:55)
[2017-11-16] MEDS: Minoxidil 2.5 MG Tablet PO ×2 (04:55→17:07)
[2017-11-16] MEDS: Nystatin Powder 15gm Bottle 1 APPLIC TOPICAL ×2 (04:55→17:07)
[2017-11-16] MEDS: Polyethylene Glycol 3350 17 GM PACKET PO (04:55)
[2017-11-16] MEDS: Na Biphos/Potassium Phosphate PACKET 1 PACKET PO ×2 (04:55→17:07)
[2017-11-16] MEDS: Furosemide 20 MG Tablet PO (04:56)
[2017-11-16] MEDS: Enoxaparin 40 MG/0.4 ML Syringe SC (05:02)
[2017-11-16 07:20] VITALS: O2SAT 94
[2017-11-16] MEDS: Aspirin 81 MG TAB.CHEW PO (07:41)
[2017-11-16 10:00] VITALS: PULSE 95; RESP 18; O2SAT 95
[2017-11-16 15:32] VITALS: BP 143/72; PULSE 93; RESP 18; TEMP 36.4; O2SAT 96
[2017-11-16] MEDS: MELATONIN 10 MG TABLET PO (21:21)
[2017-11-16] MEDS: Pramipexole Di-HCl 0.25 MG Tablet 0.75 MG PO (21:21)
[2017-11-16] MEDS: Magnesium Oxide 400 MG Tablet PO (21:21)
[2017-11-16] MEDS: Atorvastatin Calcium 20 MG Tablet PO (21:22)
[2017-11-17] MEDS: LORazepam 1 MG Tablet PO (05:20)
[2017-11-17] MEDS: Senna/Docusate Sodium 1 Tablet 2 TABLET PO (05:25)
[2017-11-17] MEDS: FLUoxetine 20 MG Capsule 60 MG PO (05:25)
[2017-11-17] MEDS: Polyethylene Glycol 3350 17 GM PACKET PO (05:25)
[2017-11-17] MEDS: cloNIDine HCl 0.1 MG Tablet PO (05:25)
[2017-11-17] MEDS: Pantoprazole Sodium 20 MG Tablet PO (05:26)
[2017-11-17] MEDS: Na Biphos/Potassium Phosphate PACKET 1 PACKET PO (05:26)
[2017-11-17] MEDS: Losartan Potassium 100 MG Tablet PO (05:26)
[2017-11-17] MEDS: Nystatin Powder 15gm Bottle 1 APPLIC TOPICAL (05:26)
[2017-11-17] MEDS: Furosemide 20 MG Tablet PO (05:26)
[2017-11-17] MEDS: Minoxidil 2.5 MG Tablet PO (05:26)
[2017-11-17] MEDS: Spironolactone 25 MG Tablet PO (05:26)
[2017-11-17] MEDS: Enoxaparin 40 MG/0.4 ML Syringe SC (05:27)
[2017-11-17 06:30] VITALS: PULSE 78; RESP 20; O2SAT 78
[2017-11-17 07:36] VITALS: O2SAT 90
[2017-11-17 08:00] VITALS: BP 135/70; PULSE 96; RESP 20; TEMP 36.7; O2SAT 95
[2017-11-17] MEDS: Aspirin 81 MG TAB.CHEW PO (08:04)
--- NOTE | 2017-11-19 11:15 | CASEMGMT ---
Insurance Notified insurance of resident discharge on 11/17/17 to home alone with home health services. Auth#[id number] Rebecca CHEATHAM, LINOTYPIST
== END 2017-11-17 12:51 | disposition home health service (06) | DRG 947 ==
PROVIDERS: Admitting Provider Family Medicine Geriatric Medicine; Family Provider Family Medicine; PCP Family Medicine; Visit Provider Family Medicine Geriatric Medicine
DX: R53.81 Other malaise (principal); K44.1 Diaphragmatic hernia with gangrene; E11.9 Type 2 diabetes mellitus without complications; N28.89 Other specified disorders of kidney and ureter; I25.10 Atherosclerotic heart disease of native coronary artery without angina pectoris; E78.5 Hyperlipidemia, unspecified; I10 Essential (primary) hypertension; F32.9 Major depressive disorder, single episode, unspecified; F41.9 Anxiety disorder, unspecified; K21.9 Gastro-esophageal reflux disease without esophagitis; G25.81 Restless legs syndrome; E66.9 Obesity, unspecified; Z68.31 Body mass index [BMI] 31.0-31.9, adult; Z71.3 Dietary counseling and surveillance; Z79.899 Other long term (current) drug therapy
CPT/HCPCS: 36415; 71046; 76770; 80048; 82962; 85025; 94640; 97110; 97116; 97162; 97165; 97530; 97535; 97802

== ENCOUNTER 2017-11-03 23:37 | Emergency (ER) | payer MEDICARE, SELFPAY ==
[2017-11-03 23:38] VITALS: BP 162/80; PULSE 74; RESP 20; TEMP 36.4; O2SAT 96; BMI 31.4
[2017-11-03 23:44] VITALS: O2SAT 95
--- NOTE | 2017-11-04 00:10 | EKG12_ITS ---
Test Reason : SOB Blood Pressure : / mmHG Vent. Rate : 074 BPM Atrial Rate : 074 BPM P-R Int : 148 ms QRS Dur : 078 ms QT Int : 422 ms P-R-T Axes : 007 005 015 degrees QTc Int : 468 ms Normal sinus rhythm T wave abnormality, consider anterior ischemia Abnormal ECG Confirmed by NAVIN ARRIOLA, JUAN C ([id number]), map editor JUDIE SUAREZ ([id number]) on 11/06/2017 1:00:56 PM Referred By: BIPIN Confirmed By:JUAN C HOLDEN MD
--- NOTE | 2017-11-04 00:15 | RAD_ITS ---
STUDY: X-RAY CHEST REASON FOR EXAM: Female, 77 years old. Shortness of breath. TECHNIQUE: AP portable chest. COMPARISON: October 19, 2017. CTA chest October 25, 2017. FINDINGS: Large right diaphragmatic hernia unchanged. No focal infiltrates or effusions. No pneumothorax. Borderline cardiomegaly. Normal mediastinum and quinton. Normal visualized pulmonary arteries. Normal visualized aortic arch and descending thoracic aorta. Normal visualized thoracic spine. Normal visualized ribs, clavicles, and shoulders. There is no demonstrated abnormality of the visualized soft tissue structures of the upper abdomen. RAD/Chest 1 View (Portable) IMPRESSION: No acute cardiopulmonary disease. Large right diaphragmatic hernia, unchanged. Electronically Signed: Francisco Javier Alexander MD at 0:41 EST , Service support ,
[2017-11-04 00:19] VITALS: PULSE 76; RESP 25
[2017-11-04] MEDS: Ipratropium/Albuterol Sulfate 3 ML AMPUL.NEB INHALATION (00:19)
[2017-11-04 01:35] LABS: Absolute Lymphocyte Count 2.08 X10^3/ul (0.83-4.51); Basophil# 0.05 X10^3/uL; Basophil% 0.7 % (0-1); Eosinophils% 2.9 % (0-5); Hematocrit 33.3 % (37-47); Lymphocyte # 2.08 X10^3/ul (4.0); Lymphocyte % 30.6 % (19-41); Mean Corpuscular Hgb 30.1 pg (27.0-32.0); Mean Platelet Vol. 8.7 fl (6.2-12.0); Monocyte# 0.46 X10^3/uL; Monocyte% 6.8 % (0-10); Neutrophil % 58.9 % (47-70); Platelet Count 267 K/mm3 (150-450); RBC Distribution Width CV 13.2 % (11.6-14.6); RBC Distribution Width SD 42.4 fl (35.1-43.9); Red Blood Count 3.66 M/mm3 (4.2-5.4); White Blood Count 6.8 K/mm3 (4.4-11.0)
[2017-11-04] MEDS: LORazepam 2 MG/ML Syringe 0.5 MG IV (01:37)
[2017-11-04] MEDS: Ondansetron 4 MG/2 ML Vial IV (01:37)
[2017-11-04] MEDS: 0.9% Normal Saline 1,000 ML 150 ML IV (01:38)
[2017-11-04 01:40] LABS: POSITIVE COUNT NO; POSITIVE DIFFERENTIAL NO; POSITIVE MORPHOLOGY NO
[2017-11-04 01:56] LABS: Anion Gap 6 (5-15); BUN 9 mg/dL (7-18); BUN/Creat Ratio 14.1 RATIO (10-20); Calcium,Total 8.3 mg/dL (8.5-10.1); Chloride 100 mmol/L (98-107); Creatinine, Serum 0.64 mg/dL (0.55-1.02); EST Glomerular Filtration Rate 95 mL/min (>60); Est Glom Filt Rate - Afr Amer 115 mL/min (>60); Estimated Creatinine Clearance 39.39 ml/min; Glucose 110 mg/dL (74-106); Potassium 4.2 mmol/L (3.5-5.1); Sodium Level 139 mmol/L (136-145)
--- NOTE | 2017-11-04 02:55 | ED.DCSUM_ITS ---
- ER Visit Summary Date of Service: 11/04/17 Chief Complaint: Shortness of breath History of Present Illness: The patient is a [address] Dumont and Dr. Jose L Ash. She reports that she was sent to [facility] October 26 to have repair of a diaphragmatic hernia. States that she was seen by general surgeons there and they felt that this was too high risk. She was sent to the TCU today. Patient reports that she has had shortness of breath is been present for the entire time. In fact, she reports that she called 911 from the [facility] because she was so short of breath. States that her shortness of breath is severe at times. It is mild currently. She reports that she has a cough sometimes. It is nonproductive. She denies any fever, chills, or chest pain. Physical Examination: Vitals: Stable. Afebrile. General: Well-nourished and well-developed. Head: Normocephalic atraumatic. Neck: Supple, no lymphadenopathy. No JVD. Nontender. Cardiovascular: Regular rate and rhythm. No murmurs. Respiratory: Mild respiratory distress with tachypnea. She has decreased breath sounds on the right.. Abdominal: Soft, nontender, nondistended, normal bowel sounds. No guarding, rebound, or peritoneal signs. Back: Nontender. Extremities: Nontender, 1+ pitting edema of her lower extremity bilaterally.. Skin: Normal color, no rash. Neurologic: Alert and oriented ?3. Cranial nerves II through XII are intact. Normal strength and sensation. Psych: Normal affect. Test Results: Is a large right diaphragmatic hernia that is unchanged. There is no acute disease. EKG is sinus at 74 with artifact and nonspecific ST changes. Troponin is negative. Chem-7 is marked for CO2 33, glucose 110 and calcium 8.3. CBC is more for an H&H of 13 E3.3 and 11. Emergency Department Course and Treatment: She was given albuterol and Atrovent aerosols. She was given half a milligram of Ativan IV. She was given morphine and Zofran IV. She is resting comfortably. However, she does still appear tachypneic. I had a prolonged discussion with the patient and her son about her prognosis. Patient reports that she wants to just go home. Son who is the medical power of deputy attorney general reports that he wants patient to have the surgery at [facility]. I have offered to transfer to [facility] today. He would like her to go back to TCU and have physical therapy to get her strength up prior to the surgery. The son does not want the patient to be a DNR [facility] arrest. He would like everything done. Treatment Plan: The patient was discussed with Dr. Douglas. He states that he will admit her back to the TCU. He does state that he will discuss the family her prognosis and potentially get hospice involved tomorrow. Disposition: Transferred to TCU in serious condition. Impression: 1. Large right diaphragmatic hernia. This note was generated with codebender dictation software. It may contain incorrect words, spelling, and punctuation that were not noted in review of the chart prior to signing ED Disposition - Plan for ED Patient: Disposition: Home or Assisted Living Chief Complaint: Shortness of Breath Instructions: ED Dyspnea Shortness of Breath Referrals: Perez Moseley Chi, MD [COURTESY STAFF PHYSICIAN] - As soon as possible
[2017-11-04 03:10] VITALS: BP 138/76; PULSE 84; RESP 26; O2SAT 95
== END 2017-11-04 03:11 | disposition home or self-care (01) ==
LOC: ED 11-04 00:02
PROVIDERS: Emergency Provider Emergency Medicine; Family Provider Family Medicine; PCP Family Medicine
DX: K44.9 Diaphragmatic hernia without obstruction or gangrene (principal); I25.10 Atherosclerotic heart disease of native coronary artery without angina pectoris; I10 Essential (primary) hypertension; E78.00 Pure hypercholesterolemia, unspecified; K21.9 Gastro-esophageal reflux disease without esophagitis; E11.9 Type 2 diabetes mellitus without complications; F32.9 Major depressive disorder, single episode, unspecified; Z79.82 Long term (current) use of aspirin; Z79.899 Other long term (current) drug therapy
CPT/HCPCS: 71045; 80048; 84484; 85025; 93005; 94640; 96361; 96374; 96375; 99285; J7030; A4216; J2405

== ENCOUNTER → 2017-12-31 11:03 | Outpatient (CLI) | payer MEDICARE, SELFPAY ==
[2017-12-31 12:18] LABS: Anion Gap 4 (5-15); BUN 20 mg/dL (7-18); BUN/Creat Ratio 17.9 RATIO (10-20); Calcium,Total 8.9 mg/dL (8.5-10.1); Chloride 100 mmol/L (98-107); Creatinine, Serum 1.12 mg/dL (0.55-1.02); EST Glomerular Filtration Rate 50 mL/min (>60); Est Glom Filt Rate - Afr Amer 60 mL/min (>60); Glucose 103 mg/dL (74-106); Potassium 4.1 mmol/L (3.5-5.1); Sodium Level 136 mmol/L (136-145)
== END ==
PROVIDERS: Family Provider Family Medicine; PCP Family Medicine; Visit Provider Family Medicine
DX: K44.9 Diaphragmatic hernia without obstruction or gangrene (principal)
CPT/HCPCS: 36415; 80048

== ENCOUNTER → 2018-01-24 15:39 | Outpatient (CLI) | payer MEDICARE, SELFPAY ==
[2018-01-24 18:23] LABS: Anion Gap 5 (5-15); BUN 19 mg/dL (7-18); BUN/Creat Ratio 18.1 RATIO (10-20); Calcium,Total 9.1 mg/dL (8.5-10.1); Chloride 103 mmol/L (98-107); Creatinine, Serum 1.05 mg/dL (0.55-1.02); EST Glomerular Filtration Rate 54 mL/min (>60); Est Glom Filt Rate - Afr Amer 65 mL/min (>60); Glucose 100 mg/dL (74-106); Potassium 4.1 mmol/L (3.5-5.1); Sodium Level 138 mmol/L (136-145)
== END ==
PROVIDERS: Family Provider Family Medicine; PCP Family Medicine; Visit Provider Family Medicine
DX: R60.9 Edema, unspecified (principal)
CPT/HCPCS: 36415; 80048

== ENCOUNTER → 2018-05-01 14:06 | Outpatient (CLI) | payer MEDICARE, SELFPAY ==
[2018-05-01 16:02] LABS: Anion Gap 5 (5-15); BUN 24 mg/dL (7-18); BUN/Creat Ratio 21.8 RATIO (10-20); Calcium,Total 9.1 mg/dL (8.5-10.1); Chloride 103 mmol/L (98-107); EST Glomerular Filtration Rate 51 mL/min (>60); Est Glom Filt Rate - Afr Amer 62 mL/min (>60); Glucose 108 mg/dL (74-106); Potassium 4.5 mmol/L (3.5-5.1); Sodium Level 138 mmol/L (136-145)
== END ==
PROVIDERS: Family Provider Family Medicine; PCP Family Medicine; Visit Provider Family Medicine
DX: E87.1 Hypo-osmolality and hyponatremia (principal)
CPT/HCPCS: 36415; 80048

== ENCOUNTER 2018-09-07 09:19 | Emergency (ER) | payer MEDICARE, SELFPAY ==
[2018-09-07 09:19] VITALS: BMI 29.5
[2018-09-07 09:20] VITALS: BP 141/80; PULSE 94; RESP 18; TEMP 37.1; O2SAT 95; BMI 28.7
[2018-09-07 10:04] LABS: Absolute Lymphocyte Count 1.06 X10^3/ul (0.83-4.51); Basophil# 0.03 X10^3/uL; Basophil% 0.3 % (0-1); Eosinophil# 0.04 X10^3/uL; Eosinophils% 0.3 % (0-5); Hematocrit 35.4 % (37-47); Hemoglobin 11.7 g/dl (12.0-15.0); Lymphocyte # 1.06 X10^3/ul (4.0); Lymphocyte % 9.1 % (19-41); Mean Corp Hgb Conc 33.1 g/gl (32-36); Mean Corpuscular Hgb 29.2 pg (27.0-32.0); Mean Corpuscular Volume 88.3 fL (81-99); Mean Platelet Vol. 8.2 fl (6.2-12.0); Monocyte# 0.53 X10^3/uL; Monocyte% 4.5 % (0-10); Neutrophil # 10.01 X10^3/uL (2.7-7.7); Neutrophil % 85.6 % (47-70); Platelet Count 235 K/mm3 (150-450); RBC Distribution Width SD 42.3 fl (35.1-43.9); Red Blood Count 4.01 M/mm3 (4.2-5.4); White Blood Count 11.7 K/mm3 (4.4-11.0)
[2018-09-07 10:05] LABS: POSITIVE COUNT NO; POSITIVE DIFFERENTIAL NO; POSITIVE MORPHOLOGY NO
[2018-09-07] MEDS: 0.9% Normal Saline 1,000 ML 1000 ML IV (10:10)
[2018-09-07] MEDS: Phenazopyridine 95 MG Tablet 190 MG PO (10:10)
[2018-09-07 10:13] LABS: Anion Gap 9 (5-15); BUN 20 mg/dL (7-18); BUN/Creat Ratio 21.2 RATIO (10-20); Calcium,Total 9.1 mg/dL (8.5-10.1); Chloride 102 mmol/L (98-107); Creatinine, Serum 0.94 mg/dL (0.55-1.02); EST Glomerular Filtration Rate 61 mL/min (>60); Est Glom Filt Rate - Afr Amer 73 mL/min (>60); Estimated Creatinine Clearance 40.14 ml/min; Glucose 116 mg/dL (74-106); Potassium 3.8 mmol/L (3.5-5.1); Sodium Level 138 mmol/L (136-145)
[2018-09-07 10:14] VITALS: BP 166/77; PULSE 90; RESP 18; TEMP 37
[2018-09-07 10:19] LABS: Mucous, Urine 0 SEEN /hpf (<or=2+)
[2018-09-07 10:24] LABS: Color, Urine Brown (Yellow); Glucose, Dipstick Normal (Normal); Ketone-Dipstick 5 mg/dl (Negative); Leukocyte Esterase-Dipstick 500 /ul (Negative); Nitrite-Dipstick Positive (Negative); Occult Blood-Urine 250 /ul (Negative); Protein-Dipstick 100 mg/dl (Negative); Specific Gravity, Urine 1.015 (1.002-1.030); Urine Bilirubin Dipstick Negative (Negative); Urine Clarity Turbid (Clear); Urine Urobilinogen 1 mg/dl (Normal)
[2018-09-07 10:25] LABS: Bacteria 2+ /hpf (None Seen); Red Blood Cells-Urine 25-50 SEEN /hpf (0-5); Squamous Epithelial Cells - UA 0-5 SEEN /hpf (5-10); White Blood Cells 50-100 SEEN /hpf (0-5)
--- NOTE | 2018-09-07 10:32 | VDLE_ITS ---
Reason For Study: LEG SWELLING RIGHT LEFT CFV is compressible, spontaneous, phasic, GSV is normal. competent and demonstrates normal CFV is compressible, spontaneous, phasic, augmentation. competent, and demonstrates normal Procedure augmentation. Exam performed portable in ED. FV is compressible, spontaneous, phasic, A preliminary report was called and/or faxed competent and demonstrates normal to Dr. Sy. augmentation. POP V is compressible, spontaneous, phasic, competent and demonstrates normal augmentation. T/P Trunk is compressible. PTV is compressible. LT PerV is compressible. Interpretation Summary There is no evidence of left lower extremity deep vein thrombosis. Left greater saphenous vein appears patent and compressible segmentally. Normal flow patterns right common femoral vein Ordering Physician: Shelley Sy Referring Physician: Jose L Valenzuela Performed By: Yi Khanna RVT
--- NOTE | 2018-09-07 10:38 | NURSING ---
WES, VASCULAR, CALLED BACK. SHE'LL BE IN
[2018-09-07] MEDS: Ceftriaxone 1 GM/50 ML BAG IV (10:55)
[2018-09-07] MEDS: Ondansetron 4 MG/2 ML Vial IV (10:55)
[2018-09-07] MEDS: Morphine 4 MG/ML Syringe IV (10:55)
[2018-09-07 10:58] VITALS: BP 148/86; PULSE 86; RESP 18; TEMP 37
--- NOTE | 2018-09-07 11:44 | ED.VISSUMM ---
- ER Visit Summary Date of Service: 09/07/18 Chief Complaint: [Urinary frequency and incontinence] History of Present Illness: The patient is a 77 F [presents to the emergency department complaint of urinary frequency and intermittent incontinence today. Patient denies any fever. She has had no vomiting. Patient has had some mild nausea. She describes a lot of pressure in the suprapubic region. Patient denies any pain in her back. She does not have a history of UTIs. Patient also mentions that she has had some swelling to the left leg for 3 or 4 days. Patient has had history of swelling but not as extensive as this and she is concerned that the swelling also goes up to her thigh which is unusual. Patient denies recent travel or surgery. She denies any chest pain or shortness of breath.] Physical Examination: [HENED-PERRSUMEET ANDERSON. Cranial nerves II through XII grossly intact. TMs clear. Mucous membranes moist. No adenopathy. Cardiovascular-regular rate and rhythm without murmur or ectopy Lungs-clear to auscultation, chest wall stable without crepitus or subcu emphysema Abdomen-normoactive bowel sounds, soft. Patient does have some tenderness over the suprapubic region with some guarding. There is no rebound, rigidity, or perineal signs. Extremities-intact ?4, normal range of motion, normal pulses, atraumatic. Patient does have some edema of the left lower extremity +1 does extend to just above the knee. Negative Homans sign. She has normal pulses dorsal pedal and posterior tibial as well as popliteal and femoral.] Test Results: [CBC with differential obtained showed a slightly elevated white blood cell count of 11.7, hemoglobin 11.7, hematocrit 35, placed 235. Chemistries were normal. Urinalysis was positive for 500 leukocyte esterase, positive nitrites, 50-100 WBCs, 25-50 RBCs, +2 bacteria. Venous duplex of the left lower cavity was negative for DVT.] Emergency Department Course and Treatment: [Patient was given Rocephin 1 g IV as well as Pyridium. Patient wanted something more for pain was given 4 mill grams of morphine 4 mg of Zofran.] Treatment Plan: [Patient will be discharged home with a prescription for Bactrim as well as Pyridium and [place] for severe pain.] Disposition: [Discharged home in stable condition] Impression: [Urinary tract infection Leg edema] This note was generated with Convozine dictation software. It may contain incorrect words, spelling, and punctuation that were not noted in review of the chart prior to signing ED Disposition - Plan for ED Patient: Chief Complaint: Complaint Referrals: Jose L Valenzuela MD [Primary Care Provider] -
--- NOTE | 2018-09-07 11:49 | DCINST.ED_ITS ---
ED Disposition - Plan for ED Patient: Chief Complaint: Complaint Instructions: ED UTI Cystitis Female Prescriptions: Hydrocodone Bitart/Apap 5-325 [[place] 5MG-325MG] 1 tab PO Q4H PRN PRN 2 Days #10 tab PRN Reason: Pain Smz/Tmp Ds [Bactrim Ds] 1 tab PO BID #14 tab Phenazopyridine [Pyridium] 200 mg PO TID #9 tab Referrals: Jose L Valenzuela MD [Primary Care Provider] - 3-5 Days
[2018-09-07 12:00] VITALS: BP 155/84; PULSE 102; RESP 18; TEMP 37.1
--- OUTSIDE RECORDS SUMMARY | 2018-12-11 09:30 | XMS RPT_ITS ---
:1940 Author Organization OHIP Support Name Relationship Address Phone ARNULFO HYATTY/POA Unavailable [address] + [place] [address] R Unavailable Unavailable Unavailable EDMAR, KALIA Unavailable [address] + [place] [address] R Unavailable Unavailable Unavailable EDMAR, KALIA Unavailable [address] + [place] [address] R Unavailable Unavailable Unavailable EDMAR, KALIA Unavailable [address] + [place] [address] R Unavailable Unavailable Unavailable EDMAR, KALIA Unavailable [address] + [place] [address] R Unavailable Unavailable Unavailable EDMAR, KALIA Unavailable [address] + [place] [address] R Unavailable Unavailable Unavailable EDMAR, KALIA Unavailable [address] + [place] [address] R Unavailable Unavailable Unavailable EDMAR, KALIA Unavailable Unavailable + [place] [address] R Unavailable Unavailable Unavailable EDMAR, KALIA Unavailable [address] + [place] [address] R Unavailable Unavailable Unavailable EDMAR, KALIA Unavailable Unavailable + [place] [address] R Unavailable Unavailable Unavailable EDMAR, KALIA Unavailable Unavailable + [place] [address] R Unavailable Unavailable Unavailable EDMAR, KALIA Unavailable Unavailable + [place] [address] R Unavailable Unavailable Unavailable EDMAR, KALIA Unavailable Unavailable + [place] [address] R Unavailable Unavailable Unavailable EDMAR, KALIA Unavailable Unavailable + [place] [address] R Unavailable Unavailable Unavailable EDMAR, KALIA Unavailable Unavailable + [place] [address] R Unavailable Unavailable Unavailable EDMAR, KALIA Unavailable Unavailable + [place] [address] R Unavailable Unavailable Unavailable EDMAR, KALIA Unavailable . + [place] [address] R Unavailable Unavailable Unavailable EDMAR, KLAIA Unavailable Unavailable + [place] [address] R Unavailable Unavailable Unavailable EDMAR, KALIA Unavailable Unavailable + [place] [address] R Unavailable Unavailable Unavailable EDMAR, KALIA Unavailable Unavailable + [place] [address] R Unavailable Unavailable Unavailable EDMAR, KALIA Unavailable Unavailable + [place] [address] R Unavailable Unavailable Unavailable EDMAR, KALIA Unavailable . + [place] [address] R Unavailable Unavailable Unavailable EDMAR, KALIA Unavailable . + [place] [address] R Unavailable Unavailable Unavailable Care Team Providers Name Role Phone Lacho LUDWIG Admitting Unavailable DIANA GEORGE Primary Care Unavailable Lacho LUDWIG Attending Unavailable RAIZA LUDWIG Admitting Unavailable RAIZA LUDWIG Attending Unavailable KEMI, SUDISH Referring Unavailable KEMI, SUDISH Referring Unavailable KEMI, GANESHISH Attending Unavailable JOSE L VALENZUELA Referring Unavailable Jose L Valenzuela Primary Care Unavailable Emanuel Boyer Attending Unavailable Nicolas, Jose L Primary Care Unavailable Shelley Sy Attending Unavailable Tereletsevette, Rommel Admitting Unavailable TereletsRommel alas Attending Unavailable Rommel Hansen Referring Unavailable Jose L Valenzuela Primary Care Unavailable Rommel Hansen Consulting Unavailable Jose L Valenzuela Attending Unavailable Nicolas, Jose L Primary Care Unavailable Nicolas, Jose L Attending Unavailable Nicolas, Jose L Primary Care Unavailable Jose L Valenzuela Attending Unavailable Nicolas, Jose L Primary Care Unavailable Nicolas, Jose L Primary Care Unavailable Dilip Okeefe Attending Unavailable Pradip, Perez Chi Admitting Unavailable Pradip, Perez Chi Attending Unavailable Nicolas, Jose L Primary Care Unavailable Cresencio Barkley Attending Unavailable Tereletsevette, Rommel Referring Unavailable Terodalisky, Rommel Admitting Unavailable Robotham, Estefania Attending Unavailable Valenzuela, Jose L Primary Care Unavailable Robotham, Estefania Consulting Unavailable Ayanna, Gurmeet Francisco Consulting Unavailable White, Maddy Consulting Unavailable Tereletsky, Rommel Admitting Unavailable Tereletsky, Rommel Attending Unavailable Valenzuela, Jose L Primary Care Unavailable Tereletsky, Rommel Consulting Unavailable Valenzuela, Jose L Primary Care Unavailable Tereletsky, Rommel Admitting Unavailable White, Maddy Attending Unavailable Robotham, Estefania Consulting Unavailable Ayanna, Shaka Consulting Unavailable Tereletsky, Rommel Admitting Unavailable Rebecca, Cesar Attending Unavailable Valenzuela, Jose L Primary Care Unavailable Filippo, Cresencio Consulting Unavailable Tereletsky, Rommel Consulting Unavailable Tereletsky, Rommel Admitting Unavailable Valenzuela, Jose L Primary Care Unavailable Filippo, Cresencio Consulting Unavailable Tereletsky, Rommel Attending Unavailable Tereletsky, Rommel Consulting Unavailable Valenzuela, Jose L Primary Care Unavailable Tereletsky, Rommel Admitting Unavailable Tereletsky, Rommel Attending Unavailable Filippo, Cresencio Consulting Unavailable Valenzuela, Jose L Attending Unavailable Valenzuela, Jose L Referring Unavailable Valenzuela, Jose L Primary Care Unavailable CebuRick pérez Attending Unavailable Ungur, Remus Referring Unavailable Pradip, Perez Chi Admitting Unavailable Pradip, Perez Chi Attending Unavailable Pradip, Perez Chi Referring Unavailable Valenzuela, Jose L Primary Care Unavailable Tereletsky, Rommel Admitting Unavailable Kittoe, Vasiliy Attending Unavailable Tereletsky, Rommel Referring Unavailable Valenzuela, Jose L Primary Care Unavailable Kittoe, Vasiliy Consulting Unavailable Tereletsky, Rommel Admitting Unavailable Kittoe, Vasiliy Attending Unavailable Tereletsky, Rommel Referring Unavailable Valenzuela, Jose L Primary Care Unavailable Kittoe, Vasiliy Consulting Unavailable Tereletsky, Rommel Admitting Unavailable Kittoe, Vasiliy Attending Unavailable Tereletsky, Rommel Referring Unavailable Valenzuela, Jose L Primary Care Unavailable Kittoe, Vasiliy Consulting Unavailable Valenzuela, Jose L Primary Care Unavailable Tereletsky, Rommel Admitting Unavailable Tereletsky, Rommel Referring Unavailable Kittoe, Vasiliy Attending Unavailable Immanuel Mancia Attending Unavailable Tereletsky, Rommel Referring Unavailable PROBLEMS PROBLEMS DATE TYPE CONDITION / CODE ATTENDING STATUS SOURCE 09/30/2018 Unknown R53.81 - Other Pradip, Perez Chi Active [place] malaise / Community R53.81(ICD-10) Hospital Repository 09/07/2018 Unknown N39.0 - Urinary Ungur, Remus Active [place] tract infection, Community site not specified / Hospital N39.0(ICD-10) Repository 10/08/2018 Unknown M79.89 - Other Rick Lambert Active [facility] specified soft Community tissue disorders / Hospital M79.89(ICD-10) Repository 05/01/2018 Unknown E87.1 - Jose L Valenzuela Active [facility] Hypo-osmolality and Community hyponatremia / Hospital E87.1(ICD-10) Repository 01/24/2018 Unknown R60.9 - Edema, Jose L Valenzuela Active [facility] unspecified / Community R60.9(ICD-10) Hospital Repository 12/12/2017 Unknown R06.02 - Shortness Sary, Active [facility] of breath / Dilip Community R06.02(ICD-10) Hospital Repository 12/12/2017 Unknown K44.9 - Pradip, Perez Chi Active [facility] Diaphragmatic hernia Community without obstruction Hospital or gangrene / Repository K44.9(ICD-10) 12/12/2017 Unknown 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, Perez Chi Active [facility] obstructive Community pulmonary disease, Hospital unspecified / Repository J44.9(ICD-10) 10/26/2017 Active Diaphragmatic hernia AWENDER, Active [place] with obstruction, RAIZA S Clinic Other without gangrene / [place] K44.0(ICD-10) Repository 10/26/2017 Active Diaphragmatic hernia AWENDER, Active [place] without obstruction RAIZA S Clinic Other or gangrene / [place] K44.9(ICD-10) Repository 10/26/2017 Admitting Unknown / AWENDER, H S Active [facility](Unknown[facility] Repository 12/12/2017 Unknown I25.10 - Immanuel Mancia Active [place] Atherosclerotic Community heart disease of Hospital wiyot coronary Repository artery without angina pectoris / I25.10(ICD-10) 10/17/2017 Unknown R11.2 - Nausea with Jose L Valenzuela Active [place] vomiting, Community unspecified / Hospital R11.2(ICD-10) Repository PROCEDURES PROCEDURES No Procedure Records FoundRESULTS RESULTS EMERGENCY DEPARTMENT Observed: 10/09/2018 Status: F Source: [place] SUMMARY 4:05 PM [facility] REPOSITORY [facility] Medical Records Department [address] [place] [address] Emergency Department Summary 10/09/18 0919 MR#: [id number] Acct: [id number] Name: VEE HYATT Rep #: [id number] : 1940 77 From: Emanuel Boyer MD PCP: Jose L Valenzuela MD Status: DEP ER - ER Visit Summary Date of Service: 10/09/18 Chief Complaint: Nausea and vomiting History of Present Illness: The patient is a 77 F history of prior intracranial bleed. Has had a prior cholecystectomy. Patient states the last 2 days she has had some crampy abdominal discomfort that is basically resolved. Now with nausea and vomiting. Initially had some constipation use MiraLAX and now has loose stools. No melena. No hematemesis. No fever. She recently was hospitalized for a UTI and then had a stay in the TCU before she is been recently discharged. She does live alone. Her son is with her and he is the power of deputy prosecuting attorney. Physical Examination: Older female no acute distress. Vital signs are stable. She is afebrile. H EENT exam mildly dry mixed memories. Neck nontender no lymphadenopathy. Lungs clear to auscultation bilaterally. Heart regular rate and rhythm no murmur. Abdomen is soft. Nondistended. No peritoneal signs. No hernia or masses. No signs of traction. Positive bowel sounds. No localizing right upper or lower quadrant tenderness. She is moving all 4 extremities. They are neurovascular intact. Back is nontender. Neurologically she is awake and alert with no focal motor deficits. Test Results: 2200. H AND H 12 and 38. No bands. Electrolytes unremarkable sodium 133. Normal creatinine gap. Liver enzymes unremarkable. Lipase normal. UA negative except for positive ketones but no signs of infection. Due to the elevated white count and some mild abdominal distention I did do a CT abdomen pelvis with IV contrast. It showed a large right diaphragmatic hernia which she has had a seen on prior films. However there is no bowel obstruction. Has had both a Mariana cystectomy and appendectomy. There are incidental findings of renal stones. But no acute process in the CAT scan. Emergency Department Course and Treatment: Patient treated with a liter normal saline. IV Zofran. Currently I do not feel she needs any imaging. We will repeat exams patient feels much better after the IV fluids and the IV Zofran. Her nausea since resolved. I long discussion the patient and her son and they are both comfortable with her being discharged home. On repeat exam at 1346 her abdomen is benign. Treatment Plan: Nausea. Plenty of fluids and rest. Follow- up with her primary care physician Disposition: discharge Impression: Acute nausea ,vomiting and diarrhea with abdominal pain of uncertain etiology This note was generated with [employer] dictation software. It may contain incorrect words, spelling, and punctuation that were not noted in review of the chart prior to signing ED Disposition - Plan for ED Patient: Chief Complaint: Abd Pain Referrals: Jose L Valenzuela MD [Primary Care Provider] - What to do if you have Problems For any increased pain, shortness of breath, bleeding, nausea or vomiting, chest pain, or any unexpected problems, contact your Primary Care Provider. Call [facility] ([phone]) or report to the closest Emergency Room. Call 911 if necessary. 10/09/18 1605 <Electronically signed by Emanuel Boyer MD> Date Emanuel Boyer MD Cosigner Signature (If Indicated): Date CC: Jose L Valenzuela MD DISCHARGE INSTRUCTION Observed: 10/09/2018 Status: F Source: [place] 4:04 PM [facility] REPOSITORY [facility] Medical Records Department [address] [place] [address] Discharge Instruction 10/09/18 1355 MR#: [id number] Acct: [id number] Name: VEE HYATT Maggy Rep #: [id number] : 1940 77 From: Emanuel Boyer MD PCP: Jose L Valenzuela MD Status: DEP ER ED Disposition - Plan for ED Patient: Disposition: Home or Assisted Living Chief Complaint: Abd Pain Instructions: ED Abdominal Pain Unkn Cause Prescriptions: Ondansetron [Zofran Odt] 4 mg PO Q8H PRN PRN #7 tab PRN Reason: Nausea Referrals: Jose L Valenzuela MD [Primary Care Provider] - As Needed Additional Instructions: Plenty of fluids and rest. Zofran as needed for nausea. Follow-up with your doctor as needed. What to do if you have Problems For any increased pain, shortness of breath, bleeding, nausea or vomiting, chest pain, or any unexpected problems, contact your Primary Care Provider. Call [facility] ([phone]) or report to the closest Emergency Room. Call 911 if necessary. 10/09/18 3850 <Electronically signed by Emanuel Boyer MD> Date Emanuel Boyer MD Cosigner Signature (If Indicated): Date CC: Jose L Valenzuela MD ABDOMEN/PELVIS W IV CONT Observed: 10/09/2018 Status: F Source: [facility] 10:46 AM [facility] REPOSITORY [facility] Imaging Services [address] [place] [address] Abdomen/Pelvis W IV Cont ONLY MR#: [id number] Acct: [id number] Name: VEE HYATT Rep #: [id number] : 1940 F 77 From: Deanne Dan MD PCP: Jose L Valenzuela MD Status: REG ER Study: Abdomen/Pelvis W IV Cont ONLY Date of Exam: 10/09/18 Exam# [id number] Ordering Dr: Emanuel Boyer MD STUDY: CT ABDOMEN AND PELVIS WITH CONTRAST REASON FOR EXAM: Female, 77 years old. ABD PAIN AND DISTENTION/N/V/D. Hx of prior appendectomy and cholecystectomy RADIATION DOSAGE (If Supplied By Facility): CTDIvol = ( 9.89 ) mGy, DLP = ( 1051.15 ) mGycm TECHNIQUE: Transaxial images were obtained from the dome of the diaphragm to the symphysis pubis without oral contrast. 100ml ml of Isovue 300 contrast was administered. Sagittal and coronal images were reconstructed. Individualized dose optimization techniques were used for this CT. COMPARISON: October 25, 2017 CTA abdomen and pelvis. FINDINGS: Hypoventilatory changes noted at the lung bases bilaterally. There is a large abdominal hernia into which small and large bowel extends. This is a diaphragmatic hernia on the right. No evidence of obstruction. The visualized portions of the heart are within normal limits. Normal liver. There are surgical clips in the gallbladder fossa consistent with a prior cholecystectomy. No biliary ductal dilatation. Normal spleen. There is diffuse atrophy of the pancreas. Normal bilateral adrenal glands. Normal right kidney. There is a large extrarenal pelvis. Nonobstructing calculus is noted in association with the midpole of the left kidney measuring approximately 5 x 4 mm there is a probable hyperdense cyst of the posterior upper pole of the left kidney, present previously measuring approximately 1.3 cm. Small simple appearing cortical cyst of the posterior right kidney noted The stomach is below the diaphragm. It is partially contracted otherwise unremarkable. Normal small intestine. Normal colon. There are surgical clips in the region of the appendix consistent with a prior appendectomy. Mild atherosclerosis and tortuosity of the aorta noted. Normal inferior vena cava. Normal retroperitoneum. Normal urinary bladder. Large calcified uterine fibroid present. Normal abdominal wall. Degenerative spondylosis with multilevel marginal osteophytes and vacuum disc phenomena noted. There is levoscoliosis. Left hip arthroplasty present. CT/Abdomen/Pelvis W IV Cont ONLY IMPRESSION: Large right-sided diaphragmatic hernia with herniated loops of large and small bowel but no evidence of obstruction. This was present previously. Nephrolithiasis of the left kidney also present previously with no evidence of obstruction. Nonobstructing left renal calculus remains. There also remains a lesion of the left kidney likely to represent a hyperdense cyst, present previously and without change. Fibroid uterus. See above. Electronically Signed: Deanne Dan MD at 13:39 EST , Service support , CC: Emanuel Boyer MD; Jose L Valenzuela MD Legal Recovery Specialist: Signed URINALYSIS, COMPLETE Collected: 10/09/2018 Status: F Source: [place] 10:35 AM [facility] REPOSITORY Order Comment: Order Date: 10/09/18 Has pt arrived? Y How was Urine Obtained? CLEAN CATCH TYPE CODE TESTS RESULT OUT OF RANGE REFERENCE UNITS LAB L400.3000 Yellow COLOR Normal Yellow LAB L400.3050 Clear Normal CLARITY Sl. Cloudy LAB L400.3200 Normal mg/dl Normal GLUCOSE, UR Normal LAB L400.3300 Negative mg/dL Normal BILIRUBIN URINE Negative LAB L400.3400 Negative mg/dl High 15 KETONE UR LAB L400.3465 1.002-1.030 Normal SP.GR. DIPSTX 1.010 LAB L400.3550 5.0 - 8.0 pH UR Normal 6.5 LAB L400.3600 Negative mg/dl PROT Normal DIPSTX Negative LAB L400.3700 Normal mg/dl Normal UROBILI Normal LAB L400.3750 Negative Normal NITRITE UR Negative LAB L400.3780 Negative /ul High 25 OCCULT BLOOD-UR LAB L400.3800 Negative /ul High LEUK ESTERASE 100 LAB L400.4050 0-5 /hpf WBC Normal 0-5 SEEN LAB L400.4100 0-5 /hpf Normal RBC-UA 0-5 SEEN LAB L400.4150 5-10 /hpf SQUAM Normal EPI 0-5 SEEN LAB L400.4300 None Seen /hpf 0 Normal BACTERIA SEEN LAB L400.4350 <or=2+ /hpf 0 Normal MUCUS, URINE SEEN Performed By: #### L400.0001 #### [facility] [address] [place], [place], [address] CBC W/DIFF, AUTOMATED Collected: 10/09/2018 Status: F Source: [place] 10:01 AM [facility] REPOSITORY TYPE CODE TESTS RESULT OUT OF RANGE REFERENCE UNITS LAB L100.1000 4.4-11.0 K/mm3 High WBC 18.2 LAB L100.1200 4.2-5.4 M/mm3 Normal RBC 4.26 LAB L100.1300 12.0-15.0 g/dl Normal HGB 12.4 LAB L100.1400 37-47 % Normal HCT 38.9 LAB L100.1500 81-99 fL Normal MCV 91.3 LAB L100.1600 27.0-32.0 pg Normal MCH 29.1 LAB L100.1700 32-36 g/gl Low MCHC 31.9 LAB L100.1810 11.6-14.6 % Normal RDW CV 14.0 LAB L100.1820 35.1-43.9 fl High RDW SD 45.8 LAB L100.1900 150-450 K/mm3 Normal PLT 209 LAB L100.2000 6.2-12.0 fl Normal MPV 9.1 LAB L100.2100 47-70 % High NEUT% 87.5 LAB L100.2200 19-41 % Low LY% 8.6 LAB L100.2300 0-10 % Normal MONO% 3.2 LAB L100.2400 0-5 % Normal EO% 0.3 LAB L100.2500 0-1 % Normal BASO% 0.1 LAB L100.2550 0.0-0.9 % Normal IM GRAN % 0.300 Result Comment: IG% - Immature Granulocytes (promyelocytes, myelocytes and metamyelocytes) > 1% indicates that a LEFT SHIFT is Present. LAB L100.2620 2.0-7.7 X10 3/uL High Absolute Neut 15.9 LAB L100.2720 0.83-4.51 X10 3/ul Normal Absolute Lymph 1.56 Performed By: #### L100.0100 #### [facility] [address] [place], [place], [address] BASIC METABOLIC Collected: 10/09/2018 Status: F Source: [place] PROFILE (BMP) 10:01 AM [facility] REPOSITORY TYPE CODE TESTS RESULT OUT OF RANGE REFERENCE UNITS LAB L501.0100 74-106 mg/dL Normal GLU 99 Result Comment: Please note revised GLUCOSE reference range effective 2017. LAB L501.1000 7-18 mg/dL Normal BUN 17 LAB L501.1100 0.55-1.02 mg/dL Normal CREAT,SERUM 0.93 Result Comment: The validity of the calculated GFR AND GFRAA in patients over 70 years has not been determined. Clinical correlation is essential. LAB L501.1110 >60 mL/min Normal EST GFR 61 Result Comment: Non- GFR Calc LAB L501.1115 >60 mL/min Normal EST GFR - AA 74 Result Comment: GFR Calc LAB L501.1255 ml/min Normal Estimated CRCL 42.36 LAB L501.1300 10-20 RATIO Normal BUN/CRE 18.2 LAB L501.2200 8.5-10 mg/dL Normal .1 CA 9.0 LAB L501.5300 136-14 mmol/L Low 5 NA 133 LAB L501.5600 3.5-5. mmol/L Normal 1 K 4.4 LAB L501.5900 98-107 mmol/L Normal CL 100 LAB L501.6100 21.0-3 mmol/L Normal 2.0 CO2 28.0 LAB L501.6200 5-15 Normal GAP 5 Performed By: #### L500.2500, L500.3400, L501.2450 #### [facility] [address] [facility] [place], [place], [id number] LIVER PROFILE Collected: 10/09/2018 Status: F Source: [place] 10:01 [facility] REPOSITORY TYPE CODE TESTS RESULT OUT OF RANGE REFERENCE UNITS LAB L501.1500 6.4-8.2 g/dL Normal T PROT 7.2 LAB L501.1800 3.2-5.0 g/dL Normal ALB 3.4 LAB L501.1950 2.2-4.2 g/dL Normal GLOB 3.8 LAB L501.4100 15-37 U/L Normal AST 16 LAB L501.4305 45-117 U/L High ALK P 124 LAB L501.4405 13-56 U/L Normal ALT 18 LAB L501.4600 0.20-1.00 mg/dL Normal T BILI 0.40 LAB L501.4700 0.00-0.30 mg/dL Normal D BILI 0.10 Performed By: #### L500.2500, L500.3400, L501.2450 #### [facility] [address] [place], [address] LIPASE Collected: 10/09/2018 Status: F Source: [place] 10:01 [facility] REPOSITORY TYPE CODE TESTS RESULT OUT OF REFERENCE UNITS RANGE LAB L501.2450 73-393 U/L Low LIPASE 44 Performed By: #### L500.2500, L500.3400, L501.2450 #### [facility] [address] [place], [address] CBC W/DIFF, AUTOMATED Collected: 09/27/2018 Status: F Source: [place] 5:55 AM [facility] REPOSITORY TYPE CODE TESTS RESULT OUT OF RANGE REFERENCE UNITS LAB L100.1000 4.4-11.0 K/mm3 Normal WBC 6.2 LAB L100.1200 4.2-5.4 M/mm3 Low RBC 3.68 LAB L100.1300 12.0-15.0 g/dl Low HGB 10.7 LAB L100.1400 37-47 % Low HCT 33.8 LAB L100.1500 81-99 fL Normal MCV 91.8 LAB L100.1600 27.0-32.0 pg Normal MCH 29.1 LAB L100.1700 32-36 g/gl Low MCHC 31.7 LAB L100.1810 11.6-14.6 % Normal RDW CV 13.8 LAB L100.1820 35.1-43.9 fl High RDW SD 45.9 LAB L100.1900 150-450 K/mm3 Normal PLT 240 LAB L100.2000 6.2-12.0 fl Normal MPV 8.8 LAB L100.2100 47-70 % Normal NEUT% 68.1 LAB L100.2200 19-41 % Normal LY% 22.8 LAB L100.2300 0-10 % Normal MONO% 5.6 LAB L100.2400 0-5 % Normal EO% 3.0 LAB L100.2500 0-1 % Normal BASO% 0.3 LAB L100.2550 0.0-0.9 % Normal IM GRAN % 0.200 Result Comment: IG% - Immature Granulocytes (promyelocytes, myelocytes and metamyelocytes) > 1% indicates that a LEFT SHIFT is Present. LAB L100.2620 2.0-7.7 X10 3/uL Normal Absolute Neut 4.3 LAB L100.2720 0.83-4.51 X10 3/ul Normal Absolute Lymph 1.42 Performed By: #### L100.0100 #### [facility] [address] [place], [place], [address] BASIC METABOLIC Collected: 09/27/2018 Status: F Source: [place] PROFILE (BMP) 5:26 AM [facility] REPOSITORY TYPE CODE TESTS RESULT OUT OF RANGE REFERENCE UNITS LAB L501.0100 74-106 mg/dL Normal GLU 90 Result Comment: Please note revised GLUCOSE reference range effective 2017. LAB L501.1000 7-18 mg/dL High BUN 27 LAB L501.1100 0.55-1.02 mg/dL Normal CREAT,SERUM 0.87 Result Comment: The validity of the calculated GFR AND GFRAA in patients over 70 years has not been determined. Clinical correlation is essential. LAB L501.1110 >60 mL/min Normal EST GFR 67 Result Comment: Non- GFR Calc LAB L501.1115 >60 mL/min Normal EST GFR - AA 81 Result Comment: GFR Calc LAB L501.1255 ml/min Normal Estimated CRCL 45.28 LAB L501.1300 10-20 RATIO High BUN/CRE 31.0 LAB L501.2200 8.5-10 mg/dL Normal .1 CA 8.8 LAB L501.5300 136-14 mmol/L Normal 5 NA 139 LAB L501.5600 3.5-5. mmol/L Normal 1 K 4.5 LAB L501.5900 98-107 mmol/L Normal CL 102 LAB L501.6100 21.0-3 mmol/L Normal 2.0 CO2 29.0 LAB L501.6200 5-15 Normal GAP 8 Performed By: #### L500.2500 #### [facility] [address] [place] [address]. [place], [address] DISCHARGE SUMMARY Observed: 09/25/2018 Status: F Source: [place] 8:42 PM [facility] REPOSITORY [facility] Medical Records Department [address] [place] [address] Discharge Summary 09/25/182039 MR#: [id number] Acct: [id number] Name: VEE HYATT Rep #: [id number] : 1940 77 From: Perez Moseley MD PCP: Jose L Valenzuela MD Status: ADM IN Y Location: [place] [address] Discharge Date and Diagnosis - Problem List Patient Problems: Active and Suspected Problems Encephalopathy (Acute) UTI (urinary tract infection) (Acute) Date of Admission: 09/12/18 Date of Discharge: 09/28/18 - Primary Discharge Diagnosis Active and Suspected Problems Encephalopathy (Acute) UTI (urinary tract infection) (Acute) - Secondary Discharge Diagnosis Chronic Problems Restless leg syndrome (Chronic) Insomnia (Chronic) Tinea corporis (Chronic) Diaphragmatic hernia (Chronic) Diabetes mellitus (Chronic) Coronary artery disease (Chronic) Obesity (Chronic) GERD (gastroesophageal reflux disease) (Chronic) Hx of appendectomy (Chronic) Benign essential HTN (Chronic) Depression (Chronic) HLD (hyperlipidemia) (Chronic) Overweight (BMI 25.0-29.9) (Chronic) CAD (coronary artery disease) (Chronic) Diabetes mellitus, type II (Chronic) Hyponatremia (Chronic) also has chronic mild hyponatremia Traumatic closed nondisplaced fracture of neck of left femur (Chronic) Status post closed reduction with internal fixation (Chronic) left femur 06/22, Dr Spears, [facility] Tinea unguium (Chronic) Dyskinesia, tardive (Chronic) Brain aneurysm (Chronic) Hypertension (Chronic) Diabetic neuropathy (Chronic) Hospital Course and Treatment Imaging Results: 09/12/18 16:23 Diet: Regular Diet Operations: None Procedures: None Summary of Care Provided: The patient is a 77 year old Female with below past medical history hospitalized for encephalopathy secondary to C. koseri UTI, complicated by dehydration, insomnia, admitted to TCU with debility, here for rehabilitation, strengthening, prior to discharge home alone. Discharge home alone, with Home Health Services. Patient Problems: Active and Suspected Problems Encephalopathy (Acute) UTI (urinary tract infection) (Acute) - Physical Exam Vital Signs Temp Pulse Resp BP Pulse Ox 98.2 F 76 16 127/74 H 93 09/25/18 15:51 09/25/18 15:51 09/25/18 15:51 09/25/18 15:51 09/25/18 15:51 Oxygen Flow Rate (L/min) 1 Oxygen Delivery Method Room Air Weight: 73.482 kg Body Mass Index (BMI) 28.5 Finger Stick Blood Glucose 176 Intake and Output for Last 24 Hours Intake Total 480 / 480 900 / 900 720 / 720 Balance 480 / 480 900 / 900 720 / 720 Discharge Diet: No Restrictions Discharge Activity: Return to Normal Activity, May Shower, Use Walker Weight Bearing Status: Weight bearing as tolerated Call your doctor if you observe: Fever of 101 or Higher, Inability to urinate, Inability to have a bowel movement, Shortness of breath, Chest pain, Uncontrolled pain Home Medications: Medications to take at Discharge Fluoxetine [Prozac] 60 mg PO DAILY 03/17/17 Lorazepam [Ativan] 1 mg PO BID 03/17/17 Losartan Potassium 50 mg PO DAILY 03/17/17 Pantoprazole Sodium [Protonix] 20 mg PO DAILY 03/17/17 Pramipexole Di-HCl [Pramipexole Dihydrochloride] 0.75 mg PO QHS 03/17/17 Simvastatin 40 mg PO QHS 03/17/17 Minoxidil [Loniten] 2.5 mg PO BID 10/19/17 Aspirin [Aspirin, Baby] 81 mg PO DAILY@0800 09/09/18 Clonidine HCl [Catapres] 0.05 mg PO BID 09/09/18 Nystatin Powder [Mycostatin Powder] 1 applic TOPICAL BID PRN 09/09/18 Melatonin 10 mg PO QHS 09/12/18 Acetaminophen [Tylenol] 1,000 mg PO Q6H PRN PRN tablet 09/25/18 Doxepin HCl [Sinequan] 20 mg PO QHS PRN #60 capsule 09/25/18 Menthol/Lanolin/Calamine/Znox [Calmoseptine Ointment] 1 applic TOPICAL 0600,2200 tube 09/25/18 Mineral Oil/Petrolatum,White [Eucerin] 1 applic TOPICAL 0600,2200 jar 09/25/18 Following Prescrptions Were Given to Patient: Doxepin HCl [Sinequan] 20 mg PO QHS PRN #60 capsule PRN Reason: Insomnia Primary Care Physician: Jose L Valenzuela MD [Primary Care Provider] - Please follow up with your Primary Care Physician in: 1 week. Disposition: Home with Home Health Minutes spent on discharge:: 35 Patient Condition:: Stable Medical Necessity - Tobacco Use Smoking Status: Never smoker Tobacco Use: Non-smoker Meaningful Use Info Meaningful Use Diagnoses (Choose all that apply): None applicable 09/25/182041 <Electronically signed by Perez Moseley MD> Date Perez Moseley MD Cosigner Signature (if applicable): Date CC: Jose L Valenzuela MD; Perez Moseley MD Signed HOME HEALTH PROGRESS Observed: 09/25/2018 Status: F Source: SUSSY NOTE 8:42 PM [facility] REPOSITORY [facility] Medical Records Department [address] [place] [address] Home Health Progress Note [id number] Encounter Encounter Date: 09/25/182041 MR#: [id number] Acct: [id number] Name: VEE HYATT Rep #: [id number] : 1940 77 From: Perez Moseley MD PCP: Jose L Valenzuela MD Status: ADM IN Location: [place] [address] Home Health Note - Plan Overview of reason of hospitalization: The patient is a 77 year old Female with below past medical history hospitalized for encephalopathy secondary to C. koseri UTI, complicated by dehydration, insomnia, admitted to TCU with debility, here for rehabilitation, strengthening, prior to discharge home alone. Discharge home alone, with Home Health Services. Problems: Patient was seen for Encephalopathy (Acute) UTI (urinary tract infection) (Acute) Restless leg syndrome (Chronic) Insomnia (Chronic) Tinea corporis (Chronic) Complete List of Medical Problems Encephalopathy (Acute) UTI (urinary tract infection) (Acute) Restless leg syndrome (Chronic) Insomnia (Chronic) Tinea corporis (Chronic) Diaphragmatic hernia (Chronic) Diabetes mellitus (Chronic) Coronary artery disease (Chronic) Obesity (Chronic) GERD (gastroesophageal reflux disease) (Chronic) Hx of appendectomy (Chronic) Benign essential HTN (Chronic) Depression (Chronic) HLD (hyperlipidemia) (Chronic) Overweight (BMI 25.0-29.9) (Chronic) CAD (coronary artery disease) (Chronic) Diabetes mellitus, type II (Chronic) Hyponatremia (Chronic) Traumatic closed nondisplaced fracture of neck of left femur (Chronic) Status post closed reduction with internal fixation (Chronic) Tinea unguium (Chronic) Dyskinesia, tardive (Chronic) Confusion (Acute) Brain aneurysm (Chronic) Hypertension (Chronic) Diabetic neuropathy (Chronic) Hypoxia (Acute) Generalized weakness (Acute) - Requirements and Reasons Disciplines Needed/Ordered: Physical Therapy Reason for Disciplines: Gait Training, Stair Training, Fall Prevention, Home Safety/Equipment Instruction, Balance and/or Posture Training, Transfer Training Related To: Unsteady Gait/Balance, Fall Risk Patient is unable to leave the home: Without Aid of Supportive Devices (crutches, cane, wheelchair, walker), Without the assistance of another person 09/25/182041 <Electronically signed by Perez Moseley MD> Date Perez Moseley MD Cosigner Signature (if indicated): Date CC: Signed DISCHARGE INSTRUCTION Observed: 09/25/2018 Status: F Source: [place] 8:40 PM [facility] REPOSITORY [facility] Medical Records Department [address] [place] [address] Instructions for Home/Discharge Instructions 09/25/182038 MR#: [id number] Acct: [id number] Name: VEE HYATT Rep #: [id number] : 1940 77 From: Perez Moseley MD PCP: Jose L Valenzuela MD Status: ADM IN - Discharge Diagnoses Current Active Problems: Current Active and Chronic Problems Encephalopathy (Acute) UTI (urinary tract infection) (Acute) Restless leg syndrome (Chronic) Insomnia (Chronic) Tinea corporis (Chronic) You will use the following diet at home:: No restrictions, Regular Your food should be the consistency of: Regular Your liquids should be the consistency of: Regular/Thin Discharge Activity: Return to Normal Activity, May Shower, Use Walker Weight Bearing Status: Weight bearing as tolerated Call your doctor if you observe: Fever of 101 or Higher, Inability to urinate, Inability to have a bowel movement, Shortness of breath, Chest pain, Uncontrolled pain Allergies/Adverse Reactions: Allergies acetaminophen [From Blackwell] Adverse Reaction (Verified 09/11/18 09:12) Nausea hydrocodone [From Blackwell] Adverse Reaction (Verified 09/11/18 09:12) Nausea sulfamethoxazole [From Bactrim] Adverse Reaction (Verified 09/11/18 09:11) Nausea trimethoprim [From Bactrim] Adverse Reaction (Verified 09/11/18 09:11) Nausea Medications to take at Discharge Fluoxetine [Prozac] 60 mg PO DAILY 03/17/17 Lorazepam [Ativan] 1 mg PO BID 03/17/17 Losartan Potassium 50 mg PO DAILY 03/17/17 Pantoprazole Sodium [Protonix] 20 mg PO DAILY 03/17/17 Pramipexole Di-HCl [Pramipexole Dihydrochloride] 0.75 mg PO QHS 03/17/17 Simvastatin 40 mg PO QHS 03/17/17 Minoxidil [Loniten] 2.5 mg PO BID 10/19/17 Aspirin [Aspirin, Baby] 81 mg PO DAILY@0800 09/09/18 Clonidine HCl [Catapres] 0.05 mg PO BID 09/09/18 Nystatin Powder [Mycostatin Powder] 1 applic TOPICAL BID PRN 09/09/18 Melatonin 10 mg PO QHS 09/12/18 Acetaminophen [Tylenol] 1,000 mg PO Q6H PRN PRN tablet 09/25/18 Doxepin HCl [Sinequan] 20 mg PO QHS PRN #60 capsule 09/25/18 Menthol/Lanolin/Calamine/Znox [Calmoseptine Ointment] 1 applic TOPICAL 0600,2200 tube 09/25/18 Mineral Oil/Petrolatum,White [Eucerin] 1 applic TOPICAL 0600,2200 jar 09/25/18 The following prescriptions were given: Doxepin HCl [Sinequan] 20 mg PO QHS PRN #60 capsule PRN Reason: Insomnia Primary Care Physician: Jose L Valenzuela MD [Primary Care Provider] - Please follow up with your Primary Care Physician in: 1 week. Test Results: Test results from this visit will be discussed in further detail at your follow-up appointment, if applicable. Proposed Discharge Date: 09/28/18 09/25/182039 <Electronically signed by Perez Moseley MD> Date Perez Moseley MD CC: Jose L Valenzuela MD Signed BASIC METABOLIC Collected: 09/20/2018 Status: F Source: [place] PROFILE (BMP) 5:17 AM [facility] REPOSITORY TYPE CODE TESTS RESULT OUT OF RANGE REFERENCE UNITS LAB L501.0100 74-106 mg/dL Normal GLU 101 Result Comment: Fasting Glucose result from 100 to 125 mg/dL suggests IMPAIRED HOMEOSTASIS per A.D.A. criteria. Please note revised GLUCOSE reference range effective 2017. LAB L501.1000 7-18 mg/dL High BUN 22 LAB L501.1100 0.55-1.02 mg/dL Normal CREAT,SERUM 0.87 Result Comment: The validity of the calculated GFR AND GFRAA in patients over 70 years has not been determined. Clinical correlation is essential. LAB L501.1110 >60 mL/min Normal EST GFR 67 Result Comment: Non- GFR Calc LAB L501.1115 >60 mL/min Normal EST GFR - AA 81 Result Comment: GFR Calc LAB L501.1255 ml/min Normal Estimated CRCL 45.28 LAB L501.1300 10-20 RATIO High BUN/CRE 25.3 LAB L501.2200 8.5-10 mg/dL Normal .1 CA 9.1 LAB L501.5300 136-14 mmol/L Normal 5 NA 137 LAB L501.5600 3.5-5. mmol/L Normal 1 K 4.4 LAB L501.5900 98-107 mmol/L Normal CL 100 LAB L501.6100 21.0-3 mmol/L Normal 2.0 CO2 31.0 LAB L501.6200 5-15 Normal GAP 6 Performed By: #### L500.2500 #### [facility] [address], [address] 12 LEAD ELECTROCARDIOGRAM Observed: 09/13/2018 Status: F Source: [place] 1:19 PM [facility] REPOSITORY [facility] Cardiovascular Services [address] [place] [address] 12 Lead EKG 09/09/18 1150 MR#: [id number] Acct: [id number] Name: VEE HYATT Rep #: [id number] : 1940 77 From: Orville Dumont MD Attending Dr: Vasiliy Conte MD Status: DIS IN Ordering Dr: Kai Noble MD Date: 09/09/18 Location: MS3 Sex: F C Admitted: 09/09/18 Test Reason : NAUSEA Blood Pressure : / mmHG Vent. Rate : 083 BPM Atrial Rate : 083 BPM P-R Int : 166 ms QRS Dur : 086 ms QT Int : 394 ms P-R-T Axes : 058 -06 037 degrees QTc Int : 462 ms Normal sinus rhythm Normal ECG Confirmed by NAVIN ARRIOLA, [place] ([id number]), editorial cartoonist KELLEN USAREZ ([id number]) on 09/13/2018 1:19:02 PM Referred By: Rommel Hansen Confirmed By:ORVILLE DUMONT MD 09/13/18 1319 Date Orville Dumont MD CC: Vasiliy Conte MD; Kai Noble MD; Rommel Hansen DO; Jose L Valenzuela MD Signed CBC W/DIFF, AUTOMATED Collected: 09/13/2018 Status: F Source: SUSSY 5:12 AM [facility] REPOSITORY TYPE CODE TESTS RESULT OUT OF RANGE REFERENCE UNITS LAB L100.1000 4.4-11.0 K/mm3 Normal WBC 8.4 LAB L100.1200 4.2-5.4 M/mm3 Low RBC 3.70 LAB L100.1300 12.0-15.0 g/dl Low HGB 11.1 LAB L100.1400 37-47 % Low HCT 33.8 LAB L100.1500 81-99 fL Normal MCV 91.4 LAB L100.1600 27.0-32.0 pg Normal MCH 30.0 LAB L100.1700 32-36 g/gl Normal MCHC 32.8 LAB L100.1810 11.6-14.6 % Normal RDW CV 12.9 LAB L100.1820 35.1-43.9 fl Normal RDW SD 42.1 LAB L100.1900 150-450 K/mm3 Normal PLT 282 LAB L100.2000 6.2-12.0 fl Normal MPV 8.6 LAB L100.2100 47-70 % High NEUT% 75.1 LAB L100.2200 19-41 % Low LY% 16.3 LAB L100.2300 0-10 % Normal MONO% 6.5 LAB L100.2400 0-5 % Normal EO% 1.7 LAB L100.2500 0-1 % Normal BASO% 0.2 LAB L100.2550 0.0-0.9 % Normal IM GRAN % 0.200 Result Comment: IG% - Immature Granulocytes (promyelocytes, myelocytes and metamyelocytes) > 1% indicates that a LEFT SHIFT is Present. LAB L100.2620 2.0-7.7 X10 3/uL Normal Absolute Neut 6.3 LAB L100.2720 0.83-4.51 X10 3/ul Normal Absolute Lymph 1.37 Performed By: #### L100.0100 #### [facility] [address] [place], [address] BASIC METABOLIC Collected: 09/13/2018 Status: F Source: [place] PROFILE ([facility]) 5:12 AM [facility] REPOSITORY TYPE CODE TESTS RESULT OUT OF RANGE REFERENCE UNITS LAB L501.0100 74-106 mg/dL Normal GLU 104 Result Comment: Fasting Glucose result from 100 to 125 mg/dL suggests IMPAIRED HOMEOSTASIS per A.D.A. criteria. Please note revised GLUCOSE reference range effective 2017. LAB L501.1000 7-18 mg/dL Normal BUN 11 LAB L501.1100 0.55-1.02 mg/dL Normal CREAT,SERUM 0.72 Result Comment: The validity of the calculated GFR AND GFRAA in patients over 70 years has not been determined. Clinical correlation is essential. LAB L501.1110 >60 mL/min Normal EST GFR 82 Result Comment: Non- GFR Calc LAB L501.1115 >60 mL/min Normal EST GFR - AA 100 Result Comment: GFR Calc LAB L501.1255 ml/min Normal Estimated CRCL 39.39 LAB L501.1300 10-20 RATIO Normal BUN/CRE 15.2 LAB L501.2200 8.5-10 mg/dL Normal .1 CA 9.4 LAB L501.5300 136-14 mmol/L Normal 5 NA 139 LAB L501.5600 3.5-5. mmol/L Normal 1 K 4.2 LAB L501.5900 98-107 mmol/L Normal CL 98 LAB L501.6100 21.0-3 mmol/L High 2.0 CO2 35.0 LAB L501.6200 5-15 Normal GAP 6 Performed By: #### L500.2500 #### [facility] [address] [place], [address] HISTORY AND PHYSICAL Observed: 09/12/2018 Status: F Source: [place] EXAM 10:06 PM [facility] REPOSITORY [facility] Medical Records Department [address] [place] [address] History and Physical 09/12/185 MR#: [id number] Acct: [id number] Name: VEE HYATT Rep #: [id number] : 1940 77 From: Perez Moseley MD PCP: Jose L Valenzuela MD Status: ADM IN Location: [place] [address] Problem List (1) Encephalopathy Status: Acute (2) UTI (urinary tract infection) Status: Acute (3) Restless leg syndrome Status: Chronic (4) Insomnia Status: Chronic (5) Tinea corporis Status: Chronic (6) Diabetes mellitus Status: Chronic (7) Coronary artery disease Status: Chronic (8) GERD (gastroesophageal reflux disease) Status: Chronic (9) Depression Status: Chronic (10) HLD (hyperlipidemia) Status: Chronic (11) Hyponatremia Status: Chronic Comment: also has chronic mild hyponatremia (12) Dyskinesia, tardive Status: Chronic (13) Brain aneurysm Status: Chronic (14) Hypertension Status: Chronic History of Present Illness Date of Admission: 09/12/18 Chief Complaint: Here for rehabilitation, strengthening, prior to discharge home alone. The patient is a 77 year old Female with below past medical history presented to [facility] Emergency Department 09/09/2018 with confusion. 09/09/2018 Doppler ultrasound left lower extremity negative DVT. 09/09/2018 Chest X-ray stable right elevated hemidiaphragm. Diagnosed with UTI 2 days prior, treated with Bactrim, Opioids. Appetite decreased, vomiting, unable to tolerate Bactrim. Increasing confusion. EKG sinus rhythm, WBC okay, Hemoglobin 11.3, Cr 1.16. Sodium 131. UA positive nitrites. Previous urine culture growing Citrobacter koseri. Gage Meyers given. 09/09/2018 Admit to Hospital. IV Fluids for dehydration. PT/OT for debility. IV Ancef for C. popgene urinary tract infection. Vistaril for sleep. Compression stockings for lymphedema. 09/12/2018 Admit to TCU with debility, here for rehabilitation, strengthening, prior to discharge home alone. Past Medical History Past Medical History (Chronic Problems): Chronic Problems Restless leg syndrome (Chronic) Insomnia (Chronic) Tinea corporis (Chronic) Diaphragmatic hernia (Chronic) Diabetes mellitus (Chronic) Coronary artery disease (Chronic) Obesity (Chronic) GERD (gastroesophageal reflux disease) (Chronic) Hx of appendectomy (Chronic) Benign essential HTN (Chronic) Depression (Chronic) HLD (hyperlipidemia) (Chronic) Overweight (BMI 25.0-29.9) (Chronic) CAD (coronary artery disease) (Chronic) Diabetes mellitus, type II (Chronic) Hyponatremia (Chronic) also has chronic mild hyponatremia Traumatic closed nondisplaced fracture of neck of left femur (Chronic) Status post closed reduction with internal fixation (Chronic) left femur 06/22, Dr Spears, [facility] Tinea unguium (Chronic) Dyskinesia, tardive (Chronic) Brain aneurysm (Chronic) Hypertension (Chronic) Diabetic neuropathy (Chronic) Allergies acetaminophen [From Blackwell] Adverse Reaction (Verified 09/11/18 09:12) Nausea hydrocodone [From Blackwell] Adverse Reaction (Verified 09/11/18 09:12) Nausea sulfamethoxazole [From Bactrim] Adverse Reaction (Verified 09/11/18 09:11) Nausea trimethoprim [From Bactrim] Adverse Reaction (Verified 09/11/18 09:11) Nausea Home Medications: Ambulatory Orders Medication Instructions Recorded Fluoxetine [Prozac] 60 mg PO DAILY 03/17/17 Surgical History: appendectomy, cholecystectomy, herniorrhaphy, tonsillectomy, - - 06/22/15 left hip CRIF Psychiatric History: Anxiety, Depression 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 Denies: Abdominal Pain, Nausea, Vomiting Genitourinary: Denies: Dysuria Musculoskeletal: Denies: Joint Pain, Joint Tenderness Skin: Denies: Rash, Wounds Neurological: Denies: Numbness, Tingling, Focal weakness Psychiatric: Denies: Anxiety, Depression, Homicidal Ideations, Suicidal Ideations Hematologic/ Lymphatic: Denies: Easy Bruising, Easy Bleeding VTE Information - Inpt Only VTE Present on Admission: No VTE Mechan Device Prophylaxis: Knee High DISHA Hose VTE Pharm Prophylaxis ordered?: Yes Patient Problems: Active and Suspected Problems Encephalopathy (Acute) UTI (urinary tract infection) (Acute) - Physical Exam General: Alert, Oriented x3, Cooperative HEENT: Atraumatic, PERRLA, EOMI, Normocephalic Neck: Supple, No JVD, Negative Carotid Bruits Lungs: Clear to auscultation, Normal air movement Cardiovascular: Regular rate, No murmurs Abdomen: Bowel Sounds Present, Soft, Non Tender Extremities: No edema, Capillary Refill Less than 3 Seconds Skin: No rashes, No breakdown Musculoskeletal: No Tenderness to Palpation of Joints or Extremities Neurological: Cranial nerves II-XII grossly intact Psych/Mental Status: Normal Affect, Appropriate Vital Signs Temp Pulse Resp BP Pulse Ox 98.2 F 78 18 181/96 H 92 09/12/18 16:06 09/12/18 21:25 09/12/18 21:25 09/12/18 16:06 09/12/18 20:49 Oxygen Flow Rate (L/min) 2 Oxygen Delivery Method Nasal Cannula Weight: 75.296 kg Body Mass Index (BMI) 28.5 Finger Stick Blood Glucose 176 Intake and Output for Last 24 Hours Intake Total 420 / 420 Balance 420 / 420 Assessment/Plan All Active Problems Encephalopathy (Acute) UTI (urinary tract infection) (Acute) Confusion (Acute) Influenza (Resolved) Takotsubo syndrome (Resolved) Gastroenteritis (Resolved) Hypoxia (Acute) Generalized weakness (Acute) Abdominal pain (Resolved) Diarrhea (Resolved) 77 year old female with below past medical history hospitalized for encephalopathy secondary to C. koseri UTI, complicated by dehydration, insomnia, admitted to TCU with debility, here for rehabilitation, strengthening, prior to discharge home alone. * Debility - PT/OT. * Pain - Tylenol 1000MG Q6H PRN mild pain. * Bowel - Miralax 17GM daily, Senna/colace 2 tablets BID, Dulcolax 10MG daily PRN, Soap Suds Enema for clean out. * Pneumonia vaccination - Administer Prevnar 13 and/or Pneumovax 23 as necessary. * DVT prophylaxis - Lovenox 40MG SC daily. * Shortness of breath - Albuterol 2.5MG Q4H PRN. * Coronary Artery Disease - Aspirin 81MG daily. * Hyperlipidemia - Atorvastatin 20MG QHS. * C. koseri UTI - Keflex 500MG BID thru 09/17/2018. * Hypertension - Clonidine 0.05MG BID, Minoxidil 2.5MG BID, Losartan 50MG daily. * Nutrition - Ensure Enlive 120ML 4x/day. 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 * Insomnia - Melatonin 10MG QHS, Doxepin 25MG QHS PRN. * Anxiety - Lorazepam 1MG BID, resident doing well with chronic prison use, GDR clinically contraindicated. * Tinea Corporis - Nystatin powder BID PRN. * GERD - Pantoprazole 20MG daily, consider H2 carlton for better safety profile. * Restless Leg Syndrome - Mirapex 0.75MG QHS. 09/12/186 <Electronically signed by Perez Moseley MD> Date Perez Moseley MD Cosigner Signature: Date (if applicable) CC: Jose L Valenzuela MD; Perez Moseley MD Signed DISCHARGE SUMMARY Observed: 09/12/2018 Status: F Source: [place] 2:42 PM [facility] REPOSITORY [facility] Medical Records Department [address] [place] [address] Discharge Summary 09/12/18 0922 MR#: [id number] Acct: [id number] Name: VEE HYATT Rep #: [id number] : 1940 77 From: Vasiliy Conte MD PCP: Jose L Valenzuela MD Status: ADM IN Y Location: [place] [address] Discharge Date and Diagnosis Date of Admission: 09/09/18 Date of Discharge: 09/12/18 - Primary Discharge Diagnosis Acute Cystitis - Secondary Discharge Diagnosis Chronic Problems Diaphragmatic hernia (Chronic) Diabetes mellitus (Chronic) Coronary artery disease (Chronic) Obesity (Chronic) GERD (gastroesophageal reflux disease) (Chronic) Hx of appendectomy (Chronic) Benign essential HTN (Chronic) Depression (Chronic) HLD (hyperlipidemia) (Chronic) Overweight (BMI 25.0-29.9) (Chronic) CAD (coronary artery disease) (Chronic) Diabetes mellitus, type II (Chronic) Hyponatremia (Chronic) also has chronic mild hyponatremia Traumatic closed nondisplaced fracture of neck of left femur (Chronic) Status post closed reduction with internal fixation (Chronic) left femur 06/22, Dr Spears, [facility] Tinea unguium (Chronic) Dyskinesia, tardive (Chronic) Brain aneurysm (Chronic) Hypertension (Chronic) Diabetic neuropathy (Chronic) Hospital Course and Treatment Operations: None Summary of Care Provided: Patient is a 77-year-old lady recently diagnosed with UTI seen in the emergency department discharged home on Bactrim and Blackwell presented with worsening confusion and significant nausea 1. Acute encephalopathy secondary to infectious encephalopathy from UTI admitted to regular nursing floor started on cefazolin cultures sent 2. Acute cystitis with Citrobacter patient started on cefazolin based on recent cultures obtained on 09/07/2018 3. Severe dehydration secondary to decreased oral intake admitted to regular nursing floor where patient is being management IV fluids with monitoring of electrolyte 4. Hypovolemic hyponatremia on IV fluids with monitoring of electrolyte 5. Benign essential hypertension blood pressure controlled continue with home medications 6. Dyslipidemia-patient is on statin therapy, continued at home dose 7. Chronic diastolic congestive heart failure echo obtained on 10/10/2017 demonstrated EF of 75% with RVSP of 48 8. Chronic lower extremity lymphedema secondary to patient chronic diastolic heart failure in addition to her pulmonary hypertension 9. Large diaphragmatic hernia radiating into the right anterior thoracic cavity-patient has been evaluated concerning this before and has declined surgery due to the risk. 10. DVT prophylaxis SC heparin 11. Physical deconditioning requested for PT OT eval and social worker to assist with discharge planning Objective: GENERAL: cooperative HEENT: Atraumatic; dry oral mucosa EYES; Anicteric, Normal Conjunctiva NECK; supple, normal thyroid, RESPIRATORY: Diminished to auscultation bilaterally, CARDIOVASCULAR: Regular S1 S2, GI: soft, non-tender, normoactive bowel sounds, : No Renal angle tenderness; EXTREMITIES: No edema, no clubbing, no cyanosis. MUSCULOSKELETAL: No Joint Tenderness; NEURO: Awake; no lateralizing signs. - Physical Exam Vital Signs Temp Pulse Resp BP Pulse Ox 98.3 F 74 16 125/65 H 97 09/12/18 01:54 09/12/18 01:54 09/12/18 01:54 09/12/18 01:54 09/12/18 07:54 Oxygen Flow Rate (L/min) 2 Oxygen Delivery Method Nasal Cannula Weight: 74.843 kg Body Mass Index (BMI) 28.3 Finger Stick Blood Glucose 176 Intake and Output for Last 24 Hours Intake Total 4331 / 4331 1651 / 1651 Output Total 1979 / 1979 1550 / 1550 900 / 900 Balance 2351 / 2351 101 / 101 -900 / -900 Microbiology Past 72 Hours 09/09/18 11:45 Blood Culture - Preliminary Blood Culture (Wb) - Left Forearm No growth in 48 hours. 09/09/18 11:30 Blood Culture - Preliminary Laboratory Tests Past 24 Hrs WBC 7.9 RBC 3.56 L Hgb 10.6 L Discharge Diet: No Restrictions Home Medications: Medications to take at Discharge Fluoxetine [Prozac] 60 mg PO DAILY 03/17/17 Lorazepam [Ativan] 1 mg PO BID 03/17/17 Losartan Potassium 50 mg PO DAILY 03/17/17 Pantoprazole Sodium [Protonix] 20 mg PO DAILY 03/17/17 Pramipexole Di-HCl [Pramipexole Dihydrochloride] 0.75 mg PO QHS 03/17/17 Simvastatin 40 mg PO QHS 03/17/17 Minoxidil [Loniten] 2.5 mg PO BID 10/19/17 Melatonin 10 mg PO QHS tablet 11/13/17 Phenazopyridine [Pyridium] 200 mg PO TID #9 tab 09/07/18 Aspirin [Aspirin, Baby] 81 mg PO DAILY@0800 09/09/18 Clonidine HCl [Catapres] 0.05 mg PO BID 09/09/18 Nystatin Powder [Mycostatin Powder] 1 applic TOPICAL BID PRN 09/09/18 Acetaminophen [Tylenol Tablet] 650 mg PO Q6H PRN PRN tablet 09/12/18 Albuterol Aerosols [Ventolin Aerosols] 2.5 mg INHALATION Q4H PRN PRN vial.neb. 09/12/18 Cephalexin [Keflex] 500 mg PO BID #10 cap 09/12/18 Ensure Enlive 120 ml PO 4X/DAY liquid 09/12/18 Lorazepam [Ativan] 1 mg PO BID #10 tab 09/12/18 Senna [Senokot] 1 tablet PO DAILY tablet 09/12/18 hydrOXYzine pamoate capsule [Vistaril pamoate capsule] 50 mg PO QHS PRN PRN capsule 09/12/18 Following Prescrptions Were Given to Patient: Cephalexin [Keflex] 500 mg PO BID #10 cap Lorazepam [Ativan] 1 mg PO BID #10 tab Primary Care Physician: Jose L Valenzuela MD [Primary Care Provider] - Disposition: [facility] facility Minutes spent on discharge:: 35 Medical Necessity - Tobacco Use Smoking Status: Never smoker Tobacco Use: Non-smoker Meaningful Use Info Meaningful Use Diagnoses (Choose all that apply): None applicable Code Visit Inpatient E AND M: 76974 Disch Hosp 09/12/18 1442 <Electronically signed by Vasiliy Conte MD> Date Vasiliy Conte MD Cosigner Signature (if applicable): Date CC: Vasiliy Conte MD; Jose L Valenzuela MD Signed TRANSFER TO [facility] Observed: 09/12/2018 Status: F Source: [facility] 9:20 AM [facility] REPOSITORY [facility] Medical Records Department [address] [place] [address] Transfer to [facility] Care MR#: [id number] Acct: [id number] Name: VEE HYATT Rep #: [id number] : 1940 77 From: Vasiliy Conte MD PCP: Jose L Valenzuela MD Status: ADM IN VEE HYATT (Patient) (Health Ins. Claim No.) (Day of Discharge to Facility) Certification of patient admission REQUIRED AT TIME OF ADMISSION. I CERTIFY THAT POST-HOSPITAL ECF SERVICES ARE REQUIRED TO BE GIVEN ON AN IN-PATIENT BASIS BECAUSE OF THE ABOVE NAMED PATIENT'S NEED FOR SHELTER CARE ON A CONTINUING BASIS FOR THE CONDITION(S) FOR WHICH HE/SHE WAS RECEIVING IN-PATIENT HOSPITAL SERVICES PRIOR TO HIS/HER TRANSFER TO THE F. 09/12/18919 <Electronically signed by Vasiliy Conte MD> Date Vasiliy Conte MD - Diet 09/09/18 14:51 Diet: Regular Diet Food consistency:: Regular Liquid Consistency:: Regular/Thin - Routine Orders/Code Status Code Status: Full Code - Therapies Physical Therapy: Eval and Treat Occupational Therapy: Eval and Treat - Allergies/Procedures Done in Hospital Allergies/Adverse Reactions: Allergies acetaminophen [From [facility]] Adverse Reaction (Verified 09/11/18 09:12) Nausea hydrocodone [From [facility]] Adverse Reaction (Verified 09/11/18 09:12) Nausea sulfamethoxazole [From Bactrim] Adverse Reaction (Verified 09/11/18 09:11) Nausea trimethoprim [From Bactrim] Adverse Reaction (Verified 09/11/18 09:11) Nausea - Type of Care/Length of Stay Estimated LOS: Convalescent Care Less Than 30 days Type of Care Needed: Skilled Rehab Potential: Good Prognosis: Good - Additional Orders/Day of Discharge Day of Discharge: 09/12/18 - Follow Up Care Primary Care Physician: Jose L Valenzuela MD [Primary Care Provider] - 09/12/18919 <Electronically signed by Vasiliy Conte MD> Date Vasiliy Conte MD CC: Jose L Valenzuela MD Signed CBC-COMPLETE BLOOD CNT Collected: 09/12/2018 Status: F Source: [facility] NO DIFF 5:46 AM [facility] REPOSITORY TYPE CODE TESTS RESULT OUT OF RANGE REFERENCE UNITS LAB L100.1000 4.4-11.0 K/mm3 Normal WBC 7.9 LAB L100.1200 4.2-5.4 M/mm3 Low RBC 3.56 LAB L100.1300 12.0-15.0 g/dl Low HGB 10.6 LAB L100.1400 37-47 % Low HCT 32.7 LAB L100.1500 81-99 fL Normal MCV 91.9 LAB L100.1600 27.0-32.0 pg Normal MCH 29.8 LAB L100.1700 32-36 g/gl Normal MCHC 32.4 LAB L100.1810 11.6-14.6 % Normal RDW CV 13.0 LAB L100.1820 35.1-43.9 fl Normal RDW SD 42.3 LAB L100.1900 150-450 K/mm3 Normal PLT 253 LAB L100.2000 6.2-12.0 fl Normal MPV 8.3 Performed By: #### L100.0500 #### [facility] [address] [place], [address] BASIC METABOLIC Collected: 09/12/2018 Status: F Source: SUS[facility] PROFILE (BMP) 5:46 AM [facility] REPOSITORY TYPE CODE TESTS RESULT OUT OF RANGE REFERENCE UNITS LAB L501.0100 74-106 mg/dL Normal GLU 103 Result Comment: Fasting Glucose result from 100 to 125 mg/dL suggests IMPAIRED HOMEOSTASIS per A.D.A. criteria. Please note revised GLUCOSE reference range effective 2017. LAB L501.1000 7-18 mg/dL Normal BUN 10 LAB L501.1100 0.55-1.02 mg/dL Normal CREAT,SERUM 0.69 Result Comment: The validity of the calculated GFR AND GFRAA in patients over 70 years has not been determined. Clinical correlation is essential. LAB L501.1110 >60 mL/min Normal EST GFR 87 Result Comment: Non- GFR Calc LAB L501.1115 >60 mL/min Normal EST GFR - AA 105 Result Comment: GFR Calc LAB L501.1255 ml/min Normal Estimated CRCL 39.39 LAB L501.1300 10-20 RATIO Normal BUN/CRE 14.5 LAB L501.2200 8.5-10 mg/dL Normal .1 CA 8.7 LAB L501.5300 136-14 mmol/L Normal 5 NA 136 LAB L501.5600 3.5-5. mmol/L Normal 1 K 4.4 LAB L501.5900 98-107 mmol/L Normal CL 103 LAB L501.6100 21.0-3 mmol/L Normal 2.0 CO2 26.0 LAB L501.6200 5-15 Normal GAP 7 Performed By: #### L500.2500 #### [facility] [address] [place], [address] BASIC METABOLIC Collected: 09/11/2018 Status: F Source: [place] PROFILE (BMP) 5:16 AM [facility] REPOSITORY TYPE CODE TESTS RESULT OUT OF RANGE REFERENCE UNITS LAB L501.0100 74-106 mg/dL Normal GLU 106 Result Comment: Fasting Glucose result from 100 to 125 mg/dL suggests IMPAIRED HOMEOSTASIS per A.D.A. criteria. Please note revised GLUCOSE reference range effective 2017. LAB L501.1000 7-18 mg/dL Normal BUN 13 LAB L501.1100 0.55-1.02 mg/dL Normal CREAT,SERUM 0.87 Result Comment: The validity of the calculated GFR AND GFRAA in patients over 70 years has not been determined. Clinical correlation is essential. LAB L501.1110 >60 mL/min Normal EST GFR 67 Result Comment: Non- GFR Calc LAB L501.1115 >60 mL/min Normal EST GFR - AA 81 Result Comment: GFR Calc LAB L501.1255 ml/min Normal Estimated CRCL 45.28 LAB L501.1300 10-20 RATIO Normal BUN/CRE 15.0 LAB L501.2200 8.5-10 mg/dL Normal .1 CA 8.6 LAB L501.5300 136-14 mmol/L Normal 5 NA 139 LAB L501.5600 3.5-5. mmol/L Normal 1 K 4.3 LAB L501.5900 98-107 mmol/L Normal CL 104 LAB L501.6100 21.0-3 mmol/L Normal 2.0 CO2 30.0 LAB L501.6200 5-15 Normal GAP 5 Performed By: #### L500.2500, L501.5200 #### [facility] [address] [place], [address] MAGNESIUM Collected: 09/11/2018 Status: F Source: S[facility] 5:16 AM [facility] REPOSITORY TYPE CODE TESTS RESULT OUT OF RANGE REFERENCE UNITS LAB L501.5200 1.6-2.6 mg/dL Normal MG 1.8 Performed By: #### L500.2500, L501.5200 #### [facility] [address], [address] CBC-COMPLETE BLOOD CNT Collected: 09/11/2018 Status: F Source: SUS[facility] NO DIFF 5:16 AM [facility] REPOSITORY TYPE CODE TESTS RESULT OUT OF RANGE REFERENCE UNITS LAB L100.1000 4.4-11.0 K/mm3 Normal WBC 8.7 LAB L100.1200 4.2-5.4 M/mm3 Low RBC 3.47 LAB L100.1300 12.0-15.0 g/dl Low HGB 10.4 LAB L100.1400 37-47 % Low HCT 31.6 LAB L100.1500 81-99 fL Normal MCV 91.1 LAB L100.1600 27.0-32.0 pg Normal MCH 30.0 LAB L100.1700 32-36 g/gl Normal MCHC 32.9 LAB L100.1810 11.6-14.6 % Normal RDW CV 12.8 LAB L100.1820 35.1-43.9 fl Normal RDW SD 41.6 LAB L100.1900 150-450 K/mm3 Normal PLT 276 LAB L100.2000 6.2-12.0 fl Normal MPV 8.5 Performed By: #### L100.0500 #### [facility] [address] [place], [address] CBC W/DIFF, AUTOMATED Collected: 09/10/2018 Status: F Source: S[facility] 5:25 AM [facility] REPOSITORY TYPE CODE TESTS RESULT OUT OF RANGE REFERENCE UNITS LAB L100.1000 4.4-11.0 K/mm3 Normal WBC 8.7 LAB L100.1200 4.2-5.4 M/mm3 Low RBC 3.69 LAB L100.1300 12.0-15.0 g/dl Low HGB 10.7 LAB L100.1400 37-47 % Low HCT 32.3 LAB L100.1500 81-99 fL Normal MCV 87.5 LAB L100.1600 27.0-32.0 pg Normal MCH 29.0 LAB L100.1700 32-36 g/gl Normal MCHC 33.1 LAB L100.1810 11.6-14.6 % Normal RDW CV 12.9 LAB L100.1820 35.1-43.9 fl Normal RDW SD 41.8 LAB L100.1900 150-450 K/mm3 Normal PLT 260 LAB L100.2000 6.2-12.0 fl Normal MPV 8.5 LAB L100.2100 47-70 % High NEUT% 82.1 LAB L100.2200 19-41 % Low LY% 11.9 LAB L100.2300 0-10 % Normal MONO% 5.6 LAB L100.2400 0-5 % Normal EO% 0.1 LAB L100.2500 0-1 % Normal BASO% 0.1 LAB L100.2550 0.0-0.9 % Normal IM GRAN % 0.200 Result Comment: IG% - Immature Granulocytes (promyelocytes, myelocytes and metamyelocytes) > 1% indicates that a LEFT SHIFT is Present. LAB L100.2620 2.0-7.7 X10 3/uL Normal Absolute Neut 7.1 LAB L100.2720 0.83-4.51 X10 3/ul Normal Absolute Lymph 1.03 Performed By: #### L100.0100 #### [facility] [address] [place], [place], [address] BASIC METABOLIC Collected: 09/10/2018 Status: F Source: SUSSY PROFILE (BMP) 5:25 AM [facility] REPOSITORY TYPE CODE TESTS RESULT OUT OF RANGE REFERENCE UNITS LAB L501.0100 74-106 mg/dL Normal GLU 106 Result Comment: Fasting Glucose result from 100 to 125 mg/dL suggests IMPAIRED HOMEOSTASIS per A.D.A. criteria. Please note revised GLUCOSE reference range effective 2017. LAB L501.1000 7-18 mg/dL Normal BUN 15 LAB L501.1100 0.55-1.02 mg/dL Normal CREAT,SERUM 0.92 Result Comment: The validity of the calculated GFR AND GFRAA in patients over 70 years has not been determined. Clinical correlation is essential. LAB L501.1110 >60 mL/min Normal EST GFR 62 Result Comment: Non- GFR Calc LAB L501.1115 >60 mL/min Normal EST GFR - AA 75 Result Comment: GFR Calc LAB L501.1255 ml/min Normal Estimated CRCL 42.82 LAB L501.1300 10-20 RATIO Normal BUN/CRE 16.3 LAB L501.2200 8.5-10 mg/dL Normal .1 CA 8.7 LAB L501.5300 136-14 mmol/L Normal 5 NA 137 LAB L501.5600 3.5-5. mmol/L Normal 1 K 4.1 LAB L501.5900 98-107 mmol/L Normal CL 101 LAB L501.6100 21.0-3 mmol/L Normal 2.0 CO2 28.0 LAB L501.6200 5-15 Normal GAP 8 Performed By: #### L500.2500 #### [facility] [address] [place], [address] HISTORY AND PHYSICAL Observed: 09/09/2018 Status: F Source: [place] [facility] EXAM 7:47 PM [facility] REPOSITORY [facility] Medical Records Department [address] [place] [address] History and Physical 09/09/181924 MR#: [id number] Acct: [id number] Name: VEE HYATT Rep #: [id number] : 1940 77 From: Rommel Hansen DO PCP: Jose L Valenzuela MD Status: ADM AKIRA Y Location: MS3 BW261-3 Problem List (1) Generalized weakness Status: Acute (2) Confusion Status: Acute History of Present Illness Date of Admission: 09/09/18 Chief Complaint: Confusion, generalized weakness The patient is a 77 year old F was seen in the emergency room today at [facility] after being brought in at the direction of her son due to mild confusion at home and generalized weakness. Patient's son also states that the patient has been having dry heaves over the last 48 hours and has not eaten or drank anything substantial since Sunday09/07/18. Patient is a poor informant although she does answer most questions appropriately. Patient denies any chest pain, shortness of breath, cough, fever, chills, or dysuria. Patient had been diagnosed several days ago as having a urinary tract infection was placed on Bactrim by her PCP. For the last 2 days according to the son she has not been able to take her Bactrim. Urine culture noted in her medical record from 09/07/18 is positive for Citrobacter which is susceptible to a wide variety of antibiotics. Patient's son states that the patient was not making sense at times today and brought her in for evaluation. Workup in the emergency room included a CBC which was markable for a hemoglobin of 11.3, otherwise it was unremarkable. Patient's chemistry profile showed a slightly elevated creatinine at 1.16, slightly elevated BUN at 19, sodium of 131, and a glucose of 123. Urinalysis was positive for nitrites, leukocyte esterase was positive at 25, +2 bacteria was noted in the urine, 0-5 WBCs and 0-5 RBCs were noted. Patient was afebrile, lactic acid was normal. O2 saturation on room air was 88%. Chest x-ray was performed which showed a stable elevation of the right hemidiaphragm and no acute pulmonary findings. Patient will be placed in observation status for dehydration, generalized weakness, and cystitis. She will receive IV fluids and IV antibiotics and be seen by PT and OT. Past Medical History Past Medical History (Chronic Problems): Chronic Problems Diaphragmatic hernia (Chronic) Diabetes mellitus (Chronic) Coronary artery disease (Chronic) Obesity (Chronic) GERD (gastroesophageal reflux disease) (Chronic) Hx of appendectomy (Chronic) Benign essential HTN (Chronic) Depression (Chronic) HLD (hyperlipidemia) (Chronic) Overweight (BMI 25.0-29.9) (Chronic) CAD (coronary artery disease) (Chronic) Diabetes mellitus, type II (Chronic) Hyponatremia (Chronic) also has chronic mild hyponatremia Traumatic closed nondisplaced fracture of neck of left femur (Chronic) Status post closed reduction with internal fixation (Chronic) left femur 06/22, Dr Spears, [facility] Tinea unguium (Chronic) Dyskinesia, tardive (Chronic) Brain aneurysm (Chronic) Hypertension (Chronic) Diabetic neuropathy (Chronic) Allergies No Known Allergies Allergy (Verified 09/09/18 10:44) Home Medications: Ambulatory Orders Medication Instructions Recorded Surgical History: appendectomy, cholecystectomy, herniorrhaphy, tonsillectomy, - - 06/22/15 left hip CRIF Psychiatric History: Anxiety, Depression 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 Denies: Anorexia, Chills, Fever, Night Sweats, Weight Change Eyes: Denies: Cataracts, Conjunctivae Inflammation, Double vision, Drainage HEENT: Denies: Difficulty Swallowing, Dysphasia, Ear Pain, Eye Pain, Hearing Changes, Nasal bleeding, Nasal Congestion, Post Nasal Drip Cardiovascular: Denies: Chest Pain, Claudication, Chest Pressure, Chest Tightness, Edema, Heaviness, Palpitations, Paroxysmal Noc. Dyspnea, Syncope Respiratory: Denies: Cough, Hemoptysis, Pleuritic Pain, Shortness of Breath, Shortness of breath at rest, Shortness of breath upon exertion, Sputum production, Wheezing Gastrointestinal: Reports: Nausea, - - Positive for dry heaves off and on over the last 48 hours, - - Positive history of large diaphragmatic hernia which was not surgically reduced. Denies: Abdominal Pain, Constipation, Diarrhea, Hematemesis, Hematochezia, Melena, Vomiting Genitourinary: Denies: Dysuria, Frequency, Hematuria, Hesitancy, Incontinence, Nocturia, Urgency Gynecological: Denies: Breast symptoms Musculoskeletal: Denies: Back Pain, Foot Pain, Hand Pain, Joint Pain, Joint stiffness, Joint swelling, Joint Tenderness, Leg Pain Skin: Denies: Dryness, Pruritis, Rash Neurological: Denies: Blurred vision, Double vision, Change in Speech, Slurred speech, Difficulty swallowing, Focal weakness, Incoordination, Numbness, Tingling, Tremor, Seizures Psychiatric: Denies: Anxiety, Depression, Homicidal Ideations, Suicidal Ideations Endocrine: Denies: Change in Body Habitus, Heat/ Cold Intolerance, Polydipsia, Polyuria Hematologic/ Lymphatic: Denies: Adenopathy, Anemia, Easy Bruising, Easy Bleeding, Petechiae, Purpura VTE Information - Inpt Only VTE Present on Admission: No VTE Mechan Device Prophylaxis: None VTE Pharm Prophylaxis ordered?: Yes - Physical Exam General: Alert, Oriented x3, Cooperative, No apparent distress, Well developed, - - She is a poor informant HEENT: Atraumatic, PERRLA, EOMI, Normocephalic Oral: Dry Mucosa Neck: Supple, No JVD, Negative Carotid Bruits, No Nuchal Rigidity, Trachea Midline, Thyroid Normal Size and Texture Lungs: Clear to auscultation, Normal air movement, No rhonchi, No wheeze, No rales Cardiovascular: Regular rate, Regular Rhythm, Normal S1, Normal S2, No murmurs, No Ectopic Activity, PMI Normal, No rub noted, No Gallop Abdomen: Bowel Sounds Present, Soft, Non Tender, Non-Distended, No hernias noted Extremities: No clubbing, Capillary Refill Less than 3 Seconds, Edema - Severe generalized edema is noted over the patient's lower extremities-nonpitting in nature Skin: No rashes, No breakdown Neurological: Cranial nerves II-XII grossly intact, Neuro grossly intact, Sensory exam intact to light touch and pain Psych/Mental Status: Appropriate, Flat Affect, - - Patient is alert and responds appropriately to most questions, she is a poor informant Vital Signs Temp Pulse Resp BP Pulse Ox 98.3 F 89 20 H 153/85 H 99 09/09/18 16:02 09/09/18 18:12 09/09/18 18:58 09/09/18 16:02 09/09/18 18:12 Oxygen Flow Rate (L/min) 2.5 Oxygen Delivery Method Nasal Cannula Weight: 74.843 kg Body Mass Index (BMI) 28.3 Finger Stick Blood Glucose 176 Laboratory Tests Past 24 Hrs WBC 9.7 RBC 3.85 L Hgb 11.3 L Hct 33.5 L MCV 87.0 MCH 29.4 MCHC 33.7 RDW 12.9 RDW Differential 41.3 Assessment/Plan All Active Problems Confusion (Acute) Influenza (Resolved) Takotsubo syndrome (Resolved) Gastroenteritis (Resolved) Hypoxia (Acute) Generalized weakness (Acute) Abdominal pain (Resolved) Diarrhea (Resolved) #1 dehydration-secondary to poor oral intake over the last several days, etiology of the patient's nausea and dry heaves are unknown at this time, patient will be placed in observation status on MedSurg 3, she will be given IV fluids, her oral diuretics will be held. Labs will be monitored #2 generalized weakness-probably secondary to dehydration and cystitis, she will need to be seen by PT and OT, patient lives alone, according to the patient's son, patient is usually independent and does her own driving and takes care of her own bills and her home. #3 cystitis-from Citrobacter, patient was given IV Rocephin in the emergency room, I will maintain her on IV Ancef for now, patient is afebrile, I do not believe she is septic, and her white blood cell count is normal. #4 hypertension-patient will remain on her present medications except for her diuretics #5 hypoxia-etiology unclear, patient has a large diaphragmatic hernia and this may be causing some respiratory embarrassment. O2 sat will be monitored #6 hyperlipidemia #7 depression-patient is unable to tell his examiner why she is taking Prozac #8 insomnia-patient asked for something for sleep, she does take Ativan for anxiety, she had been on Ambien at one time but her son does not want her on this medication and is worried about her taking this medication, I decided to place her on Vistaril at bedtime to see if this would help her sleep. Patient takes excessive amounts of melatonin at night for sleep which does not help-she states that she sometimes takes 20 mg at a time. #9 past history of cardiomyopathy-it appears patient had a diagnosis of Takotsubo's cardiomyopathy at one time, her last echo showed a normal EF and this was performed in September 2017. #10 large diaphragmatic hernia radiating into the right anterior thoracic cavity-again patient has been evaluated concerning this before and has declined surgery due to the risk. #11 chronic lymphedema-it is possible that the patient's chronic leg edema is secondary to her use of minoxidil, we will use Preston wraps on the patient, she has [id number] compression stockings at home which she wears Code Visit OBSV E AND M: [id number] Initial observation care 09/09/181946 <Electronically signed by Rommel Hansen DO> Date Rommel Hansen DO Cosigner Signature: Date (if applicable) CC: Rommel Hansen DO; Jose L Valenzuela MD Signed EMERGENCY DEPARTMENT Observed: 09/09/2018 Status: F Source: [place] SUMMARY 2:06 PM [facility] REPOSITORY [facility] Medical Records Department [address] [place] [address] Emergency Department Summary 09/09/18 1404 MR#: [id number] Acct: [id number] Name: VEE HYATT Rep #: [id number] : 1940 77 From: Kai Noble MD PCP: Jose L Valenzuela MD Status: REG ER - ER Visit Summary Date of Service: 09/09/18 Chief Complaint: Confusion History of Present Illness: The patient is a 77 F who was seen here a couple of days ago and diagnosed with a urinary tract infection. She was given Bactrim and narcotics. Son states that she has not been eating well and has had some vomiting. She has not kept down the antibiotics. He saw her spraying Windex on her feet today. He noticed that she was confused and weak. She does have some lower extremity edema. No fevers. No history of dementia in the past. Physical Examination: Vital signs reviewed. HEENT exam unremarkable. Heart is regular rate and rhythm without murmurs. Lungs are clear to auscultation. Abdomen is soft and nontender. Extremities reveal no edema. Skin exam normal. Neurologic exam normal. Test Results: Chest x-ray reveals chronic changes. EKG is sinus rhythm with no changes. White blood cell count normal. Hemoglobin 11.3. Creatinine 1.16. Sodium 131. Urinalysis reveals positive nitrites. Lactate normal. Emergency Department Course and Treatment: I reviewed the patient's urine culture and it is growing Citrobacter. She was given Zofran. It could be the medications or the UTI causing the patient's symptoms. I feel she requires admission. I gave her IV Rocephin. She will be admitted to the hospital Treatment Plan: [] Disposition: Admit Impression: UTI, delirium This note was generated with [employer] dictation software. It may contain incorrect words, spelling, and punctuation that were not noted in review of the chart prior to signing ED Disposition - Plan for ED Patient: Chief Complaint: Confusion Referrals: Jose L Valenzuela MD [Primary Care Provider] - What to do if you have Problems For any increased pain, shortness of breath, bleeding, nausea or vomiting, chest pain, or any unexpected problems, contact your Primary Care Provider. Call [facility] ([phone]) or report to the closest Emergency Room. Call 911 if necessary. 09/09/18 1406 <Electronically signed by Kai Noble MD> Date Kai Noble MD Cosigner Signature (If Indicated): Date CC: Jose L Valenzuela MD URINALYSIS, COMPLETE Collected: 09/09/2018 Status: F Source: [place] 12:00 PM [facility] REPOSITORY Order Comment: Order Date: 09/09/18 How was Urine Obtained? [employer] CLAIM EXAMINER TO SPECIFY TYPE CODE TESTS RESULT OUT OF RANGE REFERENCE UNITS LAB L400.3000 Yellow Normal COLOR SEE COMMENT BELOW Result Comment: Visual Urine Color: orange LAB L400.3050 Clear Normal CLARITY Sl. Cloudy LAB L400.3200 Normal mg/dl Normal GLUCOSE, UR Normal LAB L400.3300 Negative mg/dL High BILIRUBIN URINE 3 Result Comment: COLOR OF URINE MAY AFFECT DIPSTICK RESULTS. LAB L400.3400 Negative mg/dl High KETONE UR 5 LAB L400.3465 1.002-1.030 Normal SP.GR. DIPSTX 1.015 LAB L400.3550 5.0 - 8.0 pH Normal UR 5.0 LAB L400.3600 Negative mg/dl High PROT DIPSTX 30 LAB L400.3700 Normal mg/dl High UROBILI 4 LAB L400.3750 Negative High NITRITE UR Positive LAB L400.3780 Negative /ul High OCCULT 25 BLOOD-UR LAB L400.3800 Negative /ul High LEUK ESTERASE 25 LAB L400.4050 0-5 /hpf Normal WBC 0-5 SEEN LAB L400.4100 0-5 /hpf Normal RBC-UA 0-5 SEEN LAB L400.4150 5-10 /hpf Normal SQUAM EPI 0-5 SEEN LAB L400.4300 None Seen /hpf Normal BACTERIA 2+ LAB L400.4350 <or=2+ /hpf Normal MUCUS, URINE 0 SEEN LAB L400.4900 Normal AMORPHOUS 1+ Performed By: #### L400.0001 #### [facility] [address] [place], [address] Observed: 09/09/2018 Status: F Source: [place] CULTURE, URINE 12:00 PM [facility] REPOSITORY Order Date: 09/09/18 Urine Culture Culture exhibits no growth. Performed By: #### M100.0650 #### [facility] [address], [address] CBC W/DIFF, AUTOMATED Collected: 09/09/2018 Status: F Source: [place] 11:45 AM [facility] REPOSITORY TYPE CODE TESTS RESULT OUT OF RANGE REFERENCE UNITS LAB L100.1000 4.4-11.0 K/mm3 Normal WBC 9.7 LAB L100.1200 4.2-5.4 M/mm3 Low RBC 3.85 LAB L100.1300 12.0-15.0 g/dl Low HGB 11.3 LAB L100.1400 37-47 % Low HCT 33.5 LAB L100.1500 81-99 fL Normal MCV 87.0 LAB L100.1600 27.0-32.0 pg Normal MCH 29.4 LAB L100.1700 32-36 g/gl Normal MCHC 33.7 LAB L100.1810 11.6-14.6 % Normal RDW CV 12.9 LAB L100.1820 35.1-43.9 fl Normal RDW SD 41.3 LAB L100.1900 150-450 K/mm3 Normal PLT 259 LAB L100.2000 6.2-12.0 fl Normal MPV 8.6 LAB L100.2100 47-70 % High NEUT% 89.0 LAB L100.2200 19-41 % Low LY% 7.1 LAB L100.2300 0-10 % Normal MONO% 3.3 LAB L100.2400 0-5 % Normal EO% 0.0 LAB L100.2500 0-1 % Normal BASO% 0.0 LAB L100.2550 0.0-0.9 % Normal IM GRAN % 0.600 Result Comment: IG% - Immature Granulocytes (promyelocytes, myelocytes and metamyelocytes) > 1% indicates that a LEFT SHIFT is Present. LAB L100.2620 2.0-7.7 X10 3/uL High Absolute Neut 8.6 LAB L100.2720 0.83-4.51 X10 3/ul Low Absolute Lymph 0.69 Performed By: #### L100.0100 #### [facility] [address] [facility] [place], [place], [id number] PROTHROMBIN TIME W/INR Collected: 09/09/2018 Status: F Source: [place] 11:45 AM [facility] REPOSITORY TYPE CODE TESTS RESULT OUT OF RANGE REFERENCE UNITS LAB L300.4150 11.7-14.9 SECONDS Normal PROTIME 14.0 LAB L300.4200 Normal INR 1.1 Performed By: #### L300.3900, L300.4310 #### [facility] [address] [facility] [place], [place], [id number] PARTIAL THROMBOPLAST Collected: 09/09/2018 Status: F Source: [facility] 11:45 AM [facility] REPOSITORY TYPE CODE TESTS RESULT OUT OF RANGE REFERENCE UNITS LAB L300.4310 24.1-36.2 Seconds Normal PTT 26.3 Performed By: #### L300.3900, L300.4310 #### [facility] [address] [place], [place], [id number] COMPREHENSIVE METABOLIC Collected: 09/09/2018 Status: F Source: [place] PROFIL 11:45 AM [facility] REPOSITORY TYPE CODE TESTS RESULT OUT OF RANGE REFERENCE UNITS LAB L501.0100 74-106 mg/dL High GLU 123 Result Comment: Fasting Glucose result from 100 to 125 mg/dL suggests IMPAIRED HOMEOSTASIS per A.D.A. criteria. Please note revised GLUCOSE reference range effective 2017. LAB L501.1000 7-18 mg/dL High BUN 19 LAB L501.1100 0.55-1.02 mg/dL High CREAT,SERUM 1.16 Result Comment: The validity of the calculated GFR AND GFRAA in patients over 70 years has not been determined. Clinical correlation is essential. LAB L501.1110 >60 mL/min Low EST GFR 48 Result Comment: Non- GFR Calc LAB L501.1115 >60 mL/min Low EST GFR - AA 58 Result Comment: GFR Calc LAB L501.1255 ml/min Normal Estimated CRCL 33.96 LAB L501.1300 10-20 RATIO Normal BUN/CRE 16.4 LAB L501.1500 6.4-8. g/dL Normal 2 T PROT 7.4 LAB L501.1800 3.2-5. g/dL Normal 0 ALB 3.4 LAB L501.1950 2.2-4. g/dL Normal 2 GLOB 4.0 LAB L501.2000 0.9-2. RATIO Low 4 A/G 0.8 LAB L501.2200 8.5-10 mg/dL Normal .1 CA 9.3 LAB L501.4100 15-37 U/L Normal AST 23 LAB L501.4305 45-117 U/L Normal ALK P 113 LAB L501.4405 13-56 U/L Normal ALT 24 LAB L501.4600 0.20-1 mg/dL Normal .00 T BILI 0.40 LAB L501.5300 136-14 mmol/L Low 5 NA 131 LAB L501.5600 3.5-5. mmol/L Normal 1 K 3.9 LAB L501.5900 98-107 mmol/L Low CL 96 LAB L501.6100 21.0-3 mmol/L Normal 2.0 CO2 28.0 LAB L501.6200 5-15 Normal GAP 7 Performed By: #### L500.4050 #### [facility] [address] [place], [address] LACTIC ACID Collected: 09/09/2018 Status: F Source: [place] 11:45 AM [facility] REPOSITORY Order Comment: Yes/No query for Sepsis Lactate Rule Y TYPE CODE TESTS RESULT OUT OF RANGE REFERENCE UNITS LAB L503.6005 0.4-2.0 mmol/L Normal LACTIC ACID 0.9 Performed By: #### L503.6005 #### [facility] [address] [place], [address] Observed: 09/09/2018 Status: F Source: [place] CULTURE, BLOOD (WB) 11:45 AM [facility] REPOSITORY BC No growth in 5 days. Performed By: #### M200.1000 #### [facility] [address] [place], [address] Observed: 09/09/2018 Status: F Source: [place] CULTURE, BLOOD (WB) 11:30 AM [facility] REPOSITORY BC No growth in 5 days. Performed By: #### M200.1000 #### [facility] [address] [place], [place], [address] CHEST 1 VIEW Observed: 09/09/2018 Status: F Source: [place] (PORTABLE) 11:25 AM [facility] REPOSITORY [facility] Imaging Services [address] [place] [address] Chest 1 View (Portable) MR#: [id number] Acct: [id number] Name: VEE HYATT Rep #: [id number] : 1940 F 77 From: Mendoza Ramirez MD PCP: Jose L Valenzuela MD Status: PRE ER Study: Chest 1 View (Portable) Date of Exam: 09/09/18 Exam# [id number] Ordering Dr: Kai Noble MD STUDY: X-RAY CHEST REASON FOR EXAM: Female, 77 years old. SOB and cough TECHNIQUE: Single frontal view of the chest. COMPARISON: November 04, 2017 FINDINGS: Stable elevation of the right hemidiaphragm. The lungs are clear and expanded. There is no demonstrated pleural abnormality. Stable cardiomediastinal silhouette. Normal mediastinum and quinton. Normal visualized pulmonary arteries. Normal visualized aortic arch and descending thoracic aorta. Normal visualized thoracic spine. Normal visualized ribs, clavicles, and shoulders. There is no demonstrated abnormality of the visualized soft tissue structures of the upper abdomen. RAD/Chest 1 View (Portable) IMPRESSION: Stable elevation of the right hemidiaphragm. No acute pulmonary findings. Electronically Signed: Mendoza Ramirez MD at 11:45 EST Tel , Service support , CC: Kai Noble MD; Jose L Valenzuela MD Legal Recovery Specialist: Signed VENOUS DUPLEX LOWER Observed: 09/09/2018 Status: F Source: [place] EXTREMITY 6:02 AM [facility] REPOSITORY [facility] Cardiovascular Services [address] [place] [address] Venous Duplex US, Unilateral 09/07/18 1133 MR#: [id number] Acct: [id number] Name: VEE HYATT Rep #: [id number] : 1940 77 From: Rick Lambert MD Attending Dr: Status: DEP ER Ordering Dr: Shelley Sy DO Date: 09/07/18 Location: ED Sex: F C Admitted: Reason For Study: LEG SWELLING RIGHT LEFT CFV is compressible, spontaneous, phasic, GSV is normal. competent and demonstrates normal CFV is compressible, spontaneous, phasic, augmentation. competent, and demonstrates normal Procedure augmentation. Exam performed portable in ED. FV is compressible, spontaneous, phasic, A preliminary report was called and/or faxed competent and demonstrates normal to Dr. Sy. augmentation. POP V is compressible, spontaneous, phasic, competent and demonstrates normal augmentation. T/P Trunk is compressible. PTV is compressible. LT PerV is compressible. Interpretation Summary There is no evidence of left lower extremity deep vein thrombosis. Left greater saphenous vein appears patent and compressible segmentally. Normal flow patterns right common femoral vein Ordering Physician: Shelley Sy Referring Physician: Jose L Valenzuela Performed By: Yi Khanna RVT 09/09/18 0602 Date Rick Lambert MD CC: Jose L Valenzuela MD; Shelley Sy DO Date Dictated: 09/07/18 1133 Date Transcribed: 09/09/18 0602 Legal Recovery Specialist: Signed DISCHARGE INSTRUCTION Observed: 09/07/2018 Status: F Source: [place] 11:49 AM [facility] REPOSITORY [facility] Medical Records Department [address] [place] [address] Discharge Instruction 09/07/18 1147 MR#: [id number] Acct: [id number] Name: VEE HYATT Rep #: [id number] : 1940 77 From: Shelley Sy DO PCP: Jose L Vaelnzuela MD Status: REG ER ED Disposition - Plan for ED Patient: Chief Complaint: Complaint Instructions: ED UTI Cystitis Female Prescriptions: Hydrocodone Bitart/Apap 5-325 [Blackwell 5MG-325MG] 1 tab PO Q4H PRN PRN 2 Days #10 tab PRN Reason: Pain Smz/Tmp Ds [Bactrim Ds] 1 tab PO BID #14 tab Phenazopyridine [Pyridium] 200 mg PO TID #9 tab Referrals: Jose L Valenzuela MD [Primary Care Provider] - 3-5 Days What to do if you have Problems For any increased pain, shortness of breath, bleeding, nausea or vomiting, chest pain, or any unexpected problems, contact your Primary Care Provider. Call [facility] ([phone]) or report to the closest Emergency Room. Call 911 if necessary. 09/07/18 1149 <Electronically signed by Shelley Sy DO> Date Shelley Sy DO Cosigner Signature (If Indicated): Date ___ CC: Jose L Valenzuela MD EMERGENCY DEPARTMENT Observed: 09/07/2018 Status: F Source: [place] SUMMARY 11:47 AM [facility] REPOSITORY [facility] Medical Records Department [address] [place] [address] Emergency Department Summary 09/07/18 1144 MR#: [id number] Acct: [id number] Name: VEE HYATT Rep #: [id number] : 1940 77 From: Shelley Sy DO PCP: Jose L Valenzuela MD Status: REG ER - ER Visit Summary Date of Service: 09/07/18 Chief Complaint: [Urinary frequency and incontinence] History of Present Illness: The patient is a 77 F [presents to the emergency department complaint of urinary frequency and intermittent incontinence today. Patient denies any fever. She has had no vomiting. Patient has had some mild nausea. She describes a lot of pressure in the suprapubic region. Patient denies any pain in her back. She does not have a history of UTIs. Patient also mentions that she has had some swelling to the left leg for 3 or 4 days. Patient has had history of swelling but not as extensive as this and she is concerned that the swelling also goes up to her thigh which is unusual. Patient denies recent travel or surgery. She denies any chest pain or shortness of breath.] Physical Examination: [HEENT-PERRLA, EOMI. Cranial nerves II through XII grossly intact. TMs clear. Mucous membranes moist. No adenopathy. Cardiovascular-regular rate and rhythm without murmur or ectopy Lungs-clear to auscultation, chest wall stable without crepitus or subcu emphysema Abdomen-normoactive bowel sounds, soft. Patient does have some tenderness over the suprapubic region with some guarding. There is no rebound, rigidity, or perineal signs. Extremities-intact 4, normal range of motion, normal pulses, atraumatic. Patient does have some edema of the left lower extremity +1 does extend to just above the knee. Negative Homans sign. She has normal pulses dorsal pedal and posterior tibial as well as popliteal and femoral.] Test Results: [CBC with differential obtained showed a slightly elevated white blood cell count of 11.7, hemoglobin 11.7, hematocrit 35, placed 235. Chemistries were normal. Urinalysis was positive for 500 leukocyte esterase, positive nitrites, 50- 100 WBCs, 25-50 RBCs, +2 bacteria. Venous duplex of the left lower cavity was negative for DVT.] Emergency Department Course and Treatment: [Patient was given Rocephin 1 g IV as well as Pyridium. Patient wanted something more for pain was given 4 mill grams of morphine 4 mg of Zofran.] Treatment Plan: [Patient will be discharged home with a prescription for Bactrim as well as Pyridium and Blackwell for severe pain.] Disposition: [Discharged home in stable condition] Impression: [Urinary tract infection Leg edema] This note was generated with [employer] dictation software. It may contain incorrect words, spelling, and punctuation that were not noted in review of the chart prior to signing ED Disposition - Plan for ED Patient: Chief Complaint: Complaint Referrals: Jose L Valenzuela MD [Primary Care Provider] - What to do if you have Problems For any increased pain, shortness of breath, bleeding, nausea or vomiting, chest pain, or any unexpected problems, contact your Primary Care Provider. Call [facility] ([phone]) or report to the closest Emergency Room. Call 911 if necessary. 09/07/18 1147 <Electronically signed by Shelley Sy DO> Date Shelley Sy DO Cosigner Signature (If Indicated): Date CC: Jose L Valenzuela MD URINALYSIS, COMPLETE Collected: 09/07/2018 Status: F Source: [place] 10:15 AM [facility] REPOSITORY Order Comment: Order Date: 09/07/18 COLOR OF URINE MAY AFFECT DIPSTICK RESULTS. How was Urine Obtained? CLEAN CATCH TYPE CODE TESTS RESULT OUT OF RANGE REFERENCE UNITS LAB L400.3000 Yellow COLOR Normal Brown LAB L400.3050 Clear Normal CLARITY Turbid LAB L400.3200 Normal mg/dl Normal GLUCOSE, UR Normal LAB L400.3300 Negative mg/dL Normal BILIRUBIN URINE Negative LAB L400.3400 Negative mg/dl High 5 KETONE UR LAB L400.3465 1.002-1.030 Normal SP.GR. DIPSTX 1.015 LAB L400.3550 5.0 - 8.0 pH UR Normal 6.0 LAB L400.3600 Negative mg/dl High PROT DIPSTX 100 LAB L400.3700 Normal mg/dl High 1 UROBILI LAB L400.3750 Negative High NITRITE UR Positive LAB L400.3780 Negative /ul High OCCULT BLOOD-UR 250 LAB L400.3800 Negative /ul High LEUK ESTERASE 500 LAB L400.4050 0-5 /hpf WBC Normal 50-100 SEEN LAB L400.4100 0-5 /hpf Normal RBC-UA 25-50 SEEN LAB L400.4150 5-10 /hpf SQUAM Normal EPI 0-5 SEEN LAB L400.4300 None Seen /hpf 2+ Normal BACTERIA LAB L400.4350 <or=2+ /hpf 0 Normal MUCUS, URINE SEEN Performed By: #### L400.0001 #### [facility] [place], [address] Observed: 09/07/2018 Status: F Source: [place] CULTURE, URINE 10:15 AM [facility] REPOSITORY Order Date: 09/07/18 Has pt arrived? Y Urine Culture ORGANISM 1: Citrobacter koseri [place] Count >100,000 Citrobacter koseri: REACTION Amoxacillin/Clavulanic Acid $ 8 S Cefazolin $ <=4 S Cefepime $ <=1 S Ceftriaxone $ <=1 S Ciprofloxacin $ <=0.25 S Ertapenim $$$ <=0.5 S Gentamicin $ <=1 S Imipenem *NF <=0.25 S Levofloxacin $ <=0.12 S Nitrofurantoin $ 32 S Tobramycin $ <=1 S Trimethoprim/Sulfametho $ <=20 S (NF) indicates non-formulary drug at [facility]. Approval by Infectious Disease Specialist required before non-formulary drugs may be ordered and/or dispensed. Performed By: #### M100.0650 #### [facility] [address] [place], [address] CBC W/DIFF, AUTOMATED Collected: 09/07/2018 Status: F Source: [place] 9:33 AM [facility] REPOSITORY TYPE CODE TESTS RESULT OUT OF RANGE REFERENCE UNITS LAB L100.1000 4.4-11.0 K/mm3 High WBC 11.7 LAB L100.1200 4.2-5.4 M/mm3 Low RBC 4.01 LAB L100.1300 12.0-15.0 g/dl Low HGB 11.7 LAB L100.1400 37-47 % Low HCT 35.4 LAB L100.1500 81-99 fL Normal MCV 88.3 LAB L100.1600 27.0-32.0 pg Normal MCH 29.2 LAB L100.1700 32-36 g/gl Normal MCHC 33.1 LAB L100.1810 11.6-14.6 % Normal RDW CV 13.0 LAB L100.1820 35.1-43.9 fl Normal RDW SD 42.3 LAB L100.1900 150-450 K/mm3 Normal PLT 235 LAB L100.2000 6.2-12.0 fl Normal MPV 8.2 LAB L100.2100 47-70 % High NEUT% 85.6 LAB L100.2200 19-41 % Low LY% 9.1 LAB L100.2300 0-10 % Normal MONO% 4.5 LAB L100.2400 0-5 % Normal EO% 0.3 LAB L100.2500 0-1 % Normal BASO% 0.3 LAB L100.2550 0.0-0.9 % Normal IM GRAN % 0.200 Result Comment: IG% - Immature Granulocytes (promyelocytes, myelocytes and metamyelocytes) > 1% indicates that a LEFT SHIFT is Present. LAB L100.2620 2.0-7.7 X10 3/uL High Absolute Neut 10.0 LAB L100.2720 0.83-4.51 X10 3/ul Normal Absolute Lymph 1.06 Performed By: #### L100.0100 #### [facility] [address] [place], [address] BASIC METABOLIC Collected: 09/07/2018 Status: F Source: [place] PROFILE (BMP) 9:33 AM [facility] REPOSITORY TYPE CODE TESTS RESULT OUT OF RANGE REFERENCE UNITS LAB L501.0100 74-106 mg/dL High GLU 116 Result Comment: Fasting Glucose result from 100 to 125 mg/dL suggests IMPAIRED HOMEOSTASIS per A.D.A. criteria. Please note revised GLUCOSE reference range effective 2017. LAB L501.1000 7-18 mg/dL High BUN 20 LAB L501.1100 0.55-1.02 mg/dL Normal CREAT,SERUM 0.94 Result Comment: The validity of the calculated GFR AND GFRAA in patients over 70 years has not been determined. Clinical correlation is essential. LAB L501.1110 >60 mL/min Normal EST GFR 61 Result Comment: Non- GFR Calc LAB L501.1115 >60 mL/min Normal EST GFR - AA 73 Result Comment: GFR Calc LAB L501.1255 ml/min Normal Estimated CRCL 40.14 LAB L501.1300 10-20 RATIO High BUN/CRE 21.2 LAB L501.2200 8.5-10 mg/dL Normal .1 CA 9.1 LAB L501.5300 136-14 mmol/L Normal 5 NA 138 LAB L501.5600 3.5-5. mmol/L Normal 1 K 3.8 LAB L501.5900 98-107 mmol/L Normal CL 102 LAB L501.6100 21.0-3 mmol/L Normal 2.0 CO2 27.0 LAB L501.6200 5-15 Normal GAP 9 Performed By: #### L500.2500 #### [facility] [address] [place], [address] BASIC METABOLIC Collected: 05/01/2018 Status: F Source: [place] PROFILE (BMP) 2:07 PM [facility] REPOSITORY TYPE CODE TESTS RESULT OUT OF RANGE REFERENCE UNITS LAB L501.0100 74-106 mg/dL High GLU 108 Result Comment: Fasting Glucose result from 100 to 125 mg/dL suggests IMPAIRED HOMEOSTASIS per A.D.A. criteria. Please note revised GLUCOSE reference range effective 2017. LAB L501.1000 7-18 mg/dL High BUN 24 LAB L501.1100 0.55-1.02 mg/dL High CREAT,SERUM 1.10 Result Comment: The validity of the calculated GFR AND GFRAA in patients over 70 years has not been determined. Clinical correlation is essential. LAB L501.1110 >60 mL/min Low EST GFR 51 Result Comment: Non- GFR Calc LAB L501.1115 >60 mL/min Normal EST GFR - AA 62 Result Comment: GFR Calc LAB L501.1300 10-20 RATIO High BUN/CRE 21.8 LAB L501.2200 8.5-10.1 mg/dL CA Normal 9.1 LAB L501.5300 136-145 mmol/L NA Normal 138 LAB L501.5600 3.5-5.1 mmol/L K Normal 4.5 LAB L501.5900 98-107 mmol/L CL Normal 103 LAB L501.6100 21.0-32.0 mmol/L Normal CO2 30.0 LAB L501.6200 5-15 Normal GAP 5 Performed By: #### L500.2500 #### [facility] [address] [place], [address] BASIC METABOLIC Collected: 01/24/2018 Status: F Source: [place] PROFILE ([facility]) 3:50 PM [facility] REPOSITORY TYPE CODE TESTS RESULT OUT OF RANGE REFERENCE UNITS LAB L501.0100 74-106 mg/dL Normal GLU 100 Result Comment: Fasting Glucose result from 100 to 125 mg/dL suggests IMPAIRED HOMEOSTASIS per A.D.A. criteria. Please note revised GLUCOSE reference range effective 2017. LAB L501.1000 7-18 mg/dL High BUN 19 LAB L501.1100 0.55-1.02 mg/dL High CREAT,SERUM 1.05 Result Comment: The validity of the calculated GFR AND GFRAA in patients over 70 years has not been determined. Clinical correlation is essential. LAB L501.1110 >60 mL/min Low EST GFR 54 Result Comment: Non- GFR Calc LAB L501.1115 >60 mL/min Normal EST GFR - AA 65 Result Comment: GFR Calc LAB L501.1300 10-20 RATIO Normal BUN/CRE 18.1 LAB L501.2200 8.5-10.1 mg/dL CA Normal 9.1 LAB L501.5300 136-145 mmol/L NA Normal 138 LAB L501.5600 3.5-5.1 mmol/L K Normal 4.1 LAB L501.5900 98-107 mmol/L CL Normal 103 LAB L501.6100 21.0-32.0 mmol/L Normal CO2 30.0 LAB L501.6200 5-15 Normal GAP 5 Performed By: #### L500.2500 #### [facility] [address] 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 Bar for an opinion regarding management of a large anterior diaphragmatic hernia with herniation of small bowel into the right chest. She was diagnosed in 2016 after an abnormal CXR, but her symptoms have remained limited. She required a short hospitalization for abdominal pain and GI distress a few months ago, at which point a discussion was held regarding the necessity for repair. The decision was eventually made to proceed with repair and, due to the complexity of the case, her medical team has referred her to [facility]. 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 left neck francisco javier cyst - REMOVAL ADENOIDS,PRIMARY,<12 Y/O Adenoidectomy - REMOVAL OF TONSILS,<12 Y/O Tonsillectomy FAMILY HISTORY: FAMILY HISTORY Problem Relation Age of Onset - Prostate Cancer Father - Colon Cancer Mother SOCIAL HISTORY: Social History Substance Use Topics - Smoking status: Never Smoker - Smokeless tobacco: Never Used - Alcohol use No MEDICATIONS: Prior to Admission Medications: NAPROXEN SODIUM (ALEVE ORAL) Take by mouth as needed. potassium-sodium phosphates (NEUTRA-PHOS,PHOS-NAK) 280-160-250 mg pwpk Take 1 Packet by mouth twice daily. cloNIDine HCl (CATAPRES) 0.1 mg tablet Take 0.1 mg by mouth. Take 1 half tablet LORazepam (ATIVAN) 1 mg tablet Take 1 mg by mouth twice daily. losartan (COZAAR) 100 mg tablet Take 100 mg by mouth once daily. magnesium oxide (MAG-OX) 400 mg tablet Take 400 mg by mouth daily at bedtime. minoxidil (LONITEN) 2.5 mg tablet Take 2.5 mg by mouth twice daily. pantoprazole DR (PROTONIX) 20 mg tablet Take 20 mg by mouth once daily. Pramipexole 0.75 mg tablet Take 0.75 mg by mouth daily at bedtime. ondansetron (ZOFRAN) 4 mg tablet Take 1 tablet by mouth every 8 hours as needed. simvastatin 40 mg tablet Take 40 mg by mouth daily at bedtime. FLUoxetine (PROZAC) 20 mg capsule Take 60 mg by mouth once daily. ALLERGIES: ALLERGIES No Known Allergies Chemical Exposure: No Asbestos Exposure No COMPLETE REVIEW OF SYSTEMS Constitutional: No weight loss, malaise or fevers. HEENT: Negative for frequent or significant headaches Resp: Negative for cough, wheezing, or shortness of breath Cardiovascular: Negative for chest pain, leg swelling or palpitations GI: Mild abdominal discomfort, intermittent : No history of dysuria, frequency, or incontinence Endo: Negative for cold or heat intolerance, polyuria, polydipsia and goiter Heme/Lymph: Negative for prolonged bleeding, bruising easily or swollen nodes Neurologic: No history or headaches, syncope, paralysis, seizures or tremors Integumentary: Negative for lesions, rash, and itching. Additional systems reviewed: No additional systems reviewed PHYSICAL EXAM Constitutional: Well developed and Well nourished HEENT: PERRLA and EOM's intact Resp: Clear Cardiovascular: Regular rate AND rhythm GI: Soft and Non-tender Integumentary: Warm Musculoskeletal: No deformities Neurological/Psychiatric: Oriented to time, place AND person Additional systems reviewed: No additional systems reviewed DATA: Radiology: CT Chest 10/26/2017 Large anterior diaphragmatic hernia containing SB, transverse colon I have personally reviewed the following images/data: CT scan Outside Paper Medical Records Review personally performed by: Kevin Parrish MD SIGNATURE: Kevin Parrish MD PAGER: [phone] DATE of SERVICE: 01/01/2018 TIME of SERVICE: 2:14 PM CNOV Observed: 01/01/2018 Status: COMPLETED Source: [place] 1:20 PM [facility] REPOSITORY Office Visit (JUSTO) VEE HYATT ([id number]) 1940 F Date Time Provider Department 01/01/18 1:20 PM CASSANDRA JIMENEZ During your visit today, we recorded the following information about you: Temperature Pulse Blood pressure Weight 99 degrees 103/minute 150/77 77.7 kg Height 1.626 m Kevin Parrish MD 01/01/2018 4:55 PM Signed [facility] OUTPATIENT CONSULT NOTE Vee Hyatt [id number] Requesting Provider: Krystal Bar Thoracic Physician: Cassandra Jimenez MD Chief Complaint: Abdominal pain and GI distress Impression: Large anterior diaphragmatic hernia with herniation of small bowel into the right chest Plan: Stress test Preop assessment Tentative plan for laparoscopic, possible open, diaphragmatic hernia repair with mesh HPI: Vee Hyatt is a 77 year old White female referred by Dr. Bar for an opinion regarding management of a large anterior diaphragmatic hernia with herniation of small bowel into the right chest. She was diagnosed in 2016 after an abnormal CXR, but her symptoms have remained limited. She required a short hospitalization for abdominal pain and GI distress a few months ago, at which point a discussion was held regarding the necessity for repair. The decision was eventually made to proceed with repair and, due to the complexity of the case, her medical team has referred her to [facility]. 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 left neck francisco javier cyst - REMOVAL ADENOIDS,PRIMARY,ANDlt;10 Y/O Adenoidectomy - REMOVAL OF TONSILS,ANDlt;10 Y/O Tonsillectomy FAMILY HISTORY: FAMILY HISTORY Problem Relation Age of Onset - Prostate Cancer Father - Colon Cancer Mother SOCIAL HISTORY: Social History Substance Use Topics - Smoking status: Never Smoker - Smokeless tobacco: Never Used - Alcohol use No MEDICATIONS: Prior to Admission Medications: NAPROXEN SODIUM (ALEVE ORAL) Take by mouth as needed. potassium-sodium phosphates (NEUTRA-PHOS,PHOS-NAK) 280-160-250 mg pwpk Take 1 Packet by mouth twice daily. cloNIDine HCl (CATAPRES) 0.1 mg tablet Take 0.1 mg by mouth. Take 1 half tablet LORazepam (ATIVAN) 1 mg tablet Take 1 mg by mouth twice daily. losartan (COZAAR) 100 mg tablet Take 100 mg by mouth once daily. magnesium oxide (MAG-OX) 400 mg tablet Take 400 mg by mouth daily at bedtime. minoxidil (LONITEN) 2.5 mg tablet Take 2.5 mg by mouth twice daily. pantoprazole DR (PROTONIX) 20 mg tablet Take 20 mg by mouth once daily. Pramipexole 0.75 mg tablet Take 0.75 mg by mouth daily at bedtime. ondansetron (ZOFRAN) 4 mg tablet Take 1 tablet by mouth every 8 hours as needed. simvastatin 40 mg tablet Take 40 mg by mouth daily at bedtime. FLUoxetine (PROZAC) 20 mg capsule Take 60 mg by mouth once daily. ALLERGIES: ALLERGIES No Known Allergies Chemical Exposure: No Asbestos Exposure No COMPLETE REVIEW OF SYSTEMS Constitutional: No weight loss, malaise or fevers. HEENT: Negative for frequent or significant headaches Resp: Negative for cough, wheezing, or shortness of breath Cardiovascular: Negative for chest pain, leg swelling or palpitations GI: Mild abdominal discomfort, intermittent : No history of dysuria, frequency, or incontinence Endo: Negative for cold or heat intolerance, polyuria, polydipsia and goiter Heme/Lymph: Negative for prolonged bleeding, bruising easily or swollen nodes Neurologic: No history or headaches, syncope, paralysis, seizures or tremors Integumentary: Negative for lesions, rash, and itching. Additional systems reviewed: No additional systems reviewed PHYSICAL EXAM Constitutional: Well developed and Well nourished HEENT: PERRLA and EOM's intact Resp: Clear Cardiovascular: Regular rate ANDamp; rhythm GI: Soft and Non-tender Integumentary: Warm Musculoskeletal: No deformities Neurological/Psychiatric: Oriented to time, place ANDamp; person Additional systems reviewed: No additional systems reviewed DATA: Radiology: CT Chest 10/26/2017 Large anterior diaphragmatic hernia containing SB, transverse colon I have personally reviewed the following images/data: CT scan Outside Paper Medical Records Review personally performed by: Kevin Parrish MD SIGNATURE: Kevin Parrish MD PAGER: [phone] DATE of SERVICE: 01/01/2018 TIME of SERVICE: 2:14 PM Referring Provider: JOSE L VALENZUELA [[id number]] Allergies As of Date: 01/01/2018 (No Known Allergies) Date Reviewed: 01/01/2018 Reviewed by: Estefania Acevedo - Fully Assessed Primary Visit Diagnosis:Diaphragmatic hernia without obstruction and without gangrene [K44.9] Order(s):LUNG DIFFUSION CAPACITY (DLCO) [2812274] Order #: [id number] FUTURE SIX MINUTE WALK [7392485] Order #: [id number] FUTURE SPIROMETRY WITH DILATOR IF OBSTRUCTED [7508395] Order #: [id number] FUTURE Prescriptions as of 01/01/2018 Sig: ALEVE ORAL Take by mouth as needed. POTASSIUM, SODIUM PHOSPHATES * Take 1 Packet by mouth twice * CLONIDINE HCL 0.1 MG TABLET Take 0.1 mg by mouth. Take 1 * LORAZEPAM 1 MG TABLET Take 1 mg by mouth twice ag* LOSARTAN 100 MG TABLET Take 100 mg by mouth once jazmine* MAGNESIUM OXIDE 400 MG TABLET Take 400 mg by mouth daily at* MINOXIDIL 2.5 MG TABLET Take 2.5 mg by mouth twice da* PANTOPRAZOLE 20 MG TABLET,DEL* Take 20 mg by mouth once ag* PRAMIPEXOLE 0.75 MG TABLET Take 0.75 mg by mouth daily a* ONDANSETRON HCL 4 MG TABLET Take 1 tablet by mouth every * * SIMVASTATIN 40 MG TABLET Take 40 mg by mouth daily at * * FLUOXETINE 20 MG CAPSULE Take 60 mg by mouth once ag* Problem List As Of Date 01/01/2018 Noted Resolved SEBACEOUS CYST [L72.3] INVALID FOR* Proteus mirabilis infection [B96.4] INVALID FOR* Insomnia [G47.00] INVALID FOR* Nausea [R11.0] INVALID FOR* Physical deconditioning [R53.81] INVALID FOR* Acute, but ill-defined, cerebrovascular disease* Essential hypertension, benign [I10] Irritable bowel syndrome [K58.9] Cardiomyopathy, nonischemic (HCC) [I42.8] GERD (gastroesophageal reflux disease) [K21.9] Diaphragmatic hernia [K44.9] INVALID FOR* Medications Discontinued During This Encounter acetaminophen (TYLENOL) 325 mg tablet 11/03/2017 01/01/2018 Class: OTC Route: ORAL Sig: Take 2 tablets by mouth every 6 hours as needed. Disc: Discontinued by another Health Care Provider ASPIRIN 81 MG CHEWABLE TAB 0 06/28/2006 01/01/2018 Class: Med Update Route: ORAL Sig: Take one(1) tablet daily. Disc: Discontinued by another Health Care Provider ipratropium-albuterol (DUONEB) 0.5 m* 11/03/2017 01/01/2018 Class: Med Update Route: INHALATION Sig: Inhale 3 mL as instructed every 4 hours. Disc: Discontinued by another Health Care Provider Disposition: Return in 2 weeks (on 01/15/2018). Follow-up and Disposition History Recorded Encounter Status:Closed by KEMI ARRIOLA, CASSANDRA Jane PHD on 01/01/18 BASIC METABOLIC Collected: 12/31/2017 Status: F Source: [place] PROFILE ([facility]) 11:04 AM [facility] REPOSITORY TYPE CODE TESTS RESULT OUT OF RANGE REFERENCE UNITS LAB L501.0100 74-106 mg/dL Normal GLU 103 Result Comment: Fasting Glucose result from 100 to 125 mg/dL suggests IMPAIRED HOMEOSTASIS per A.D.A. criteria. Please note revised GLUCOSE reference range effective 2017. LAB L501.1000 7-18 mg/dL High BUN 20 LAB L501.1100 0.55-1.02 mg/dL High CREAT,SERUM 1.12 Result Comment: The validity of the calculated GFR AND GFRAA in patients over 70 years has not been determined. Clinical correlation is essential. LAB L501.1110 >60 mL/min Low EST GFR 50 Result Comment: Non- GFR Calc LAB L501.1115 >60 mL/min Normal EST GFR - AA 60 Result Comment: GFR Calc LAB L501.1300 10-20 RATIO Normal BUN/CRE 17.9 LAB L501.2200 8.5-10.1 mg/dL CA Normal 8.9 LAB L501.5300 136-145 mmol/L NA Normal 136 LAB L501.5600 3.5-5.1 mmol/L K Normal 4.1 LAB L501.5900 98-107 mmol/L CL Normal 100 LAB L501.6100 21.0-32.0 mmol/L Normal CO2 32.0 LAB L501.6200 5-15 Low GAP 4 Performed By: #### L500.2500 #### [facility] [address] [place], [address] HOME HEALTH PROGRESS Observed: 11/13/2017 Status: F Source: [place] NOTE 6:03 PM [facility] REPOSITORY [facility] Medical Records Department [address] [place] [address] Home Health Progress Note Iaqx-pb-Myej Encounter Encounter Date: 11/13/17856 MR#: [id number] Acct: [id number] Name: VEE HYATT Rep #: [id number] : 1940 77 From: Perez Moseley MD PCP: Jose L Valenzuela MD Status: ADM IN Location: [place] [address] ADDENDUM by Perez Moseley MD on 11/13/17 at 1803 Start of care to begin on Sunday. 11/13/171802 <Electronically signed by Perez Moseley MD> Date Perez Moseley MD cc: * Signed Home Health Note - Plan Overview of reason of hospitalization: The patient is a 77 year old Female with complex past medical history hospitalized for abdominal pain secondary to strangulated diaphragmatic hernia with gangrene, treated non-operatively, complicated left renal mass suspicious for renal cell carcinoma, admitted to [facility] for rehabilitation, strengthening. Renal mass stable on renal ultrasound, unlikely to be worrisome. Appointment with Dr. Bar regarding diaphragmatic hernia 11/14/2017, to decide surgery or not. [] Will discharge home alone. Home health ordered. Problems: Patient was seen for Diaphragmatic hernia (Chronic) Diabetes mellitus (Chronic) Coronary artery disease (Chronic) Obesity (Chronic) GERD (gastroesophageal reflux disease) (Chronic) Complete List of Medical Problems Diaphragmatic hernia (Chronic) Diabetes mellitus (Chronic) Coronary artery disease (Chronic) Obesity (Chronic) GERD (gastroesophageal reflux disease) (Chronic) Hx of appendectomy (Chronic) Benign essential HTN (Chronic) Depression (Chronic) HLD (hyperlipidemia) (Chronic) Overweight (BMI 25.0-29.9) (Chronic) CAD (coronary artery disease) (Chronic) Diabetes mellitus, type II (Chronic) Hyponatremia (Chronic) Traumatic closed nondisplaced fracture of neck of left femur (Chronic) Status post closed reduction with internal fixation (Chronic) Tinea unguium (Chronic) Dyskinesia, tardive (Chronic) Status post total hip replacement, left (Acute) Confusion (Acute) Takatsuki syndrome (Chronic) Brain aneurysm (Chronic) Influenza (Acute) Takotsubo syndrome (Chronic) Hypertension (Chronic) Diabetic neuropathy (Acute) Gastroenteritis (Acute) Hypoxia (Acute) Generalized weakness (Acute) Abdominal pain (Acute) - Requirements and Reasons Disciplines Needed/Ordered: Physical Therapy Reason for Disciplines: Gait Training, Stair Training, Fall Prevention, Home Safety/Equipment Instruction, Balance and/or Posture Training, Transfer Training Related To: Limited/Poor Endurance, Shortness of Breath with Activity, Physical Impairments, Unsteady Gait/Balance, Fall Risk Patient is unable to leave the home: Without Aid of Supportive Devices (crutches, cane, wheelchair, walker), Without the assistance of another person - Additional Disciplines Additional Disciplines Needed/Ordered: Occupational Therapy 11/13/17 0858 <Electronically signed by Perez Moseley MD> Date Perez Moseley MD Cosigner Signature (if indicated): Date CC: Signed DISCHARGE SUMMARY Observed: 11/13/2017 Status: F Source: [place] 8:57 AM [facility] REPOSITORY [facility] Medical Records Department [address] [place] [address] Discharge Summary 11/13/17 0851 MR#: [id number] Acct: [id number] Name: EDMARVEE Maggy Rep #: [id number] : 1940 77 From: Perez Moseley MD PCP: Jose L Valenzuela MD Status: ADM IN Location: [place] [address] Discharge Date and Diagnosis Date of Admission: 11/03/17 Date of Discharge: 11/17/17 - Secondary Discharge Diagnosis Chronic Problems Diaphragmatic hernia (Chronic) Diabetes mellitus (Chronic) Coronary artery disease (Chronic) Obesity (Chronic) GERD (gastroesophageal reflux disease) (Chronic) Hx of appendectomy (Chronic) Benign essential HTN (Chronic) Depression (Chronic) HLD (hyperlipidemia) (Chronic) Overweight (BMI 25.0-29.9) (Chronic) CAD (coronary artery disease) (Chronic) Diabetes mellitus, type II (Chronic) Hyponatremia (Chronic) also has chronic mild hyponatremia Traumatic closed nondisplaced fracture of neck of left femur (Chronic) Status post closed reduction with internal fixation (Chronic) left femur 06/22, Dr Spears, [facility] Tinea unguium (Chronic) Dyskinesia, 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 New small bilateral pleural effusions with adjacent atelectasis/consolidation. No abnormality in the lung apices. at 1942 Reported and signed by: Kellen Kelly MD Electronically Signed: Kellen Kelly MD at 18:41 EST Tel , Service support , Renal Ultrasound 11/05/17 09:23 IMPRESSION: Limited evaluation of the left kidney due to overlying bowel gas. Stable nodular density in the superior posterolateral aspect of the left kidney most likely representing a complex cyst. Electronically Signed: Fan Benavidez MD at 11:17 EST Tel [phone], Service support , Operations: None Procedures: None Summary of Care Provided: The patient is a 77 year old Female with complex past medical history hospitalized for abdominal pain secondary to strangulated diaphragmatic hernia with gangrene, treated non-operatively, complicated left renal mass suspicious for renal cell carcinoma, admitted to TCU for rehabilitation, strengthening. Renal mass stable on renal ultrasound, unlikely to be worrisome. Appointment with Dr. Bar regarding diaphragmatic hernia 11/14/2017, to decide surgery or not. [] Will discharge home alone. Home health ordered. Discharge Diet: No Restrictions Discharge Activity: Return to Normal Activity, Use Walker Weight Bearing Status: Weight bearing as tolerated Call your doctor if you observe: Fever of 101 or Higher, Inability to urinate, Inability to have a bowel movement, Shortness of breath, Chest pain, Uncontrolled pain Home Medications: Medications to take at Discharge Clonidine HCl 0.1 tab PO DAILY 03/17/17 Fluoxetine [Prozac] 60 mg PO DAILY 03/17/17 Lorazepam [Ativan] 1 mg PO BID 03/17/17 Losartan Potassium 100 mg PO DAILY 03/17/17 Magnesium Oxide [Mag-Ox 400] 400 mg PO QHS 03/17/17 Pantoprazole Sodium [Protonix] 20 mg PO DAILY 03/17/17 Pramipexole Di-HCl [Pramipexole Dihydrochloride] 0.75 mg PO QHS 03/17/17 Simvastatin 40 mg PO QHS 03/17/17 Minoxidil [Loniten] 2.5 mg PO BID 10/19/17 Aspirin [Aspirin, Baby] 81 mg PO DAILY@0800 11/03/17 Ipratropium/Albuterol Sulfate [Duoneb] 3 ml INHALATION Q4H.RT 11/03/17 Acetaminophen [Tylenol] 1,000 mg PO Q8H PRN PRN tablet 11/13/17 Ipratropium/Albuterol Sulfate [Duoneb] 3 ml INHALATION Q6H.RT PRN #120 ampul.neb 11/13/17 Melatonin 10 mg PO QHS tablet 11/13/17 Mineral Oil/Petrolatum,White [Eucerin] 1 applic TOPICAL BID PRN jar 11/13/17 Nystatin Powder [Mycostatin Powder] 1 applic TOPICAL BID bottle 11/13/17 Oxycodone HCl [Roxicodone] 5 mg PO Q6H PRN PRN #30 tablet 11/13/17 Polyethylene Glycol 3350 [Miralax] 17 gm PO DAILY #30 packet 11/13/17 ProMETHAzine [Phenergan] 25 mg PO Q6H PRN PRN #120 tab 11/13/17 Following Prescrptions Were Given to Patient: Ipratropium/Albuterol Sulfate [Duoneb] 3 ml INHALATION Q6H.RT PRN #120 ampul.neb PRN Reason: SOB AND /OR WHEEZING Oxycodone HCl [Roxicodone] 5 mg PO Q6H PRN PRN #30 tablet PRN Reason: Pain ProMETHAzine [Phenergan] 25 mg PO Q6H PRN PRN #120 tab PRN Reason: Nausea/Vomiting Polyethylene Glycol 3350 [Miralax] 17 gm PO DAILY #30 packet Primary Care Physician: Jose L Valenzuela MD [Primary Care Provider] - Please follow up with your Primary Care Physician in: 1 week. Please Follow Up With: Dr. Bar When: [phone] Disposition: Home with Home Health Minutes spent on discharge:: 35 Patient Condition:: Stable Meaningful Use Info Meaningful Use Diagnoses (Choose all that apply): None applicable 11/13/17 0857 <Electronically signed by Perez Moseley MD> Date Perez Moseley MD Cosigner Signature (if applicable): Date CC: Jose L Valenzuela MD; Perez Moseley MD Signed DISCHARGE INSTRUCTION Observed: 11/13/2017 Status: F Source: [place] 8:51 AM [facility] REPOSITORY [facility] Medical Records Department [address] [place] [address] Instructions for Home/Discharge Instructions 11/13/17 0850 MR#: [id number] Acct: [id number] Name: VEE HYATT Rep #: [id number] : 1940 77 From: Perez Moseley MD PCP: Jose L Valenzuela MD Status: ADM IN - Discharge Diagnoses Current Active Problems: Current Active and Chronic Problems Diaphragmatic hernia (Chronic) Diabetes mellitus (Chronic) Coronary artery disease (Chronic) Obesity (Chronic) GERD (gastroesophageal reflux disease) (Chronic) You will use the following diet at home:: No restrictions, Regular Your food should be the consistency of: Regular Your liquids should be the consistency of: Regular/Thin Discharge Activity: Return to Normal Activity, Use Walker Weight Bearing Status: Weight bearing as tolerated Call your doctor if you observe: Fever of 101 or Higher, Inability to urinate, Inability to have a bowel movement, Shortness of breath, Chest pain, Uncontrolled pain Allergies/Adverse Reactions: Allergies No Known Allergies Allergy (Verified 11/03/17 23:47) Medications to take at Discharge Clonidine HCl 0.1 tab PO DAILY 03/17/17 Fluoxetine [Prozac] 60 mg PO DAILY 03/17/17 Lorazepam [Ativan] 1 mg PO BID 03/17/17 Losartan Potassium 100 mg PO DAILY 03/17/17 Magnesium Oxide [Mag-Ox 400] 400 mg PO QHS 03/17/17 Pantoprazole Sodium [Protonix] 20 mg PO DAILY 03/17/17 Pramipexole Di-HCl [Pramipexole Dihydrochloride] 0.75 mg PO QHS 03/17/17 Simvastatin 40 mg PO QHS 03/17/17 Minoxidil [Loniten] 2.5 mg PO BID 10/19/17 Aspirin [Aspirin, Baby] 81 mg PO DAILY@0800 11/03/17 Ipratropium/Albuterol Sulfate [Duoneb] 3 ml INHALATION Q4H.RT 11/03/17 Acetaminophen [Tylenol] 1,000 mg PO Q8H PRN PRN tablet 11/13/17 Ipratropium/Albuterol Sulfate [Duoneb] 3 ml INHALATION Q6H.RT PRN #120 ampul.neb 11/13/17 Melatonin 10 mg PO QHS tablet 11/13/17 Mineral Oil/Petrolatum,White [Eucerin] 1 applic TOPICAL BID PRN jar 11/13/17 Nystatin Powder [Mycostatin Powder] 1 applic TOPICAL BID bottle 11/13/17 Oxycodone HCl [Roxicodone] 5 mg PO Q6H PRN PRN #30 tablet 11/13/17 Polyethylene Glycol 3350 [Miralax] 17 gm PO DAILY #30 packet 11/13/17 ProMETHAzine [Phenergan] 25 mg PO Q6H PRN PRN #120 tab 11/13/17 The following prescriptions were given: Ipratropium/Albuterol Sulfate [Duoneb] 3 ml INHALATION Q6H.RT PRN #120 ampul.neb PRN Reason: SOB AND /OR WHEEZING Oxycodone HCl [Roxicodone] 5 mg PO Q6H PRN PRN #30 tablet PRN Reason: Pain ProMETHAzine [Phenergan] 25 mg PO Q6H PRN PRN #120 tab PRN Reason: Nausea/Vomiting Polyethylene Glycol 3350 [Miralax] 17 gm PO DAILY #30 packet Primary Care Physician: Jose L Valenzuela MD [Primary Care Provider] - Please follow up with your Primary Care Physician in: 1 week. Please Follow Up With: Dr. Bar When: [phone] Proposed Discharge Date: 11/17/17 11/13/17850 <Electronically signed by Perez Moseley MD> Date Perez Moseley MD CC: Jose L Valenzuela MD BASIC METABOLIC Collected: 11/11/2017 Status: F Source: [place] PROFILE (BMP) 6:08 AM [facility] REPOSITORY TYPE CODE TESTS RESULT OUT OF RANGE REFERENCE UNITS LAB L501.0100 74-106 mg/dL Normal GLU 106 Result Comment: Fasting Glucose result from 100 to 125 mg/dL suggests IMPAIRED HOMEOSTASIS per A.D.A. criteria. Please note revised GLUCOSE reference range effective 2017. LAB L501.1000 7-18 mg/dL Normal BUN 9 LAB L501.1100 0.55-1.02 mg/dL Normal CREAT,SERUM 0.75 Result Comment: The validity of the calculated GFR AND GFRAA in patients over 70 years has not been determined. Clinical correlation is essential. LAB L501.1110 >60 mL/min Normal EST GFR 80 Result Comment: Non- GFR Calc LAB L501.1115 >60 mL/min Normal EST GFR - AA 96 Result Comment: GFR Calc LAB L501.1255 ml/min Normal Estimated CRCL 39.39 LAB L501.1300 10-20 RATIO Normal BUN/CRE 12.1 LAB L501.2200 8.5-10 mg/dL Normal .1 CA 8.8 LAB L501.5300 136-14 mmol/L Low 5 NA 132 LAB L501.5600 3.5-5. mmol/L Normal 1 K 4.2 LAB L501.5900 98-107 mmol/L Low CL 97 LAB L501.6100 21.0-3 mmol/L Normal 2.0 CO2 30.0 LAB L501.6200 5-15 Normal GAP 5 Performed By: #### L500.2500 #### [facility] [address] [place], [address] CBC W/DIFF, AUTOMATED Collected: 11/11/2017 Status: F Source: [place] 6:08 AM [facility] REPOSITORY TYPE CODE TESTS RESULT OUT OF RANGE REFERENCE UNITS LAB L100.1000 4.4-11.0 K/mm3 Normal WBC 6.1 LAB L100.1200 4.2-5.4 M/mm3 Low RBC 3.87 LAB L100.1300 12.0-15.0 g/dl Low HGB 11.6 LAB L100.1400 37-47 % Low HCT 35.1 LAB L100.1500 81-99 fL Normal MCV 90.7 LAB L100.1600 27.0-32.0 pg Normal MCH 30.0 LAB L100.1700 32-36 g/gl Normal MCHC 33.0 LAB L100.1810 11.6-14.6 % Normal RDW CV 13.6 LAB L100.1820 35.1-43.9 fl High RDW SD 44.2 LAB L100.1900 150-450 K/mm3 Normal PLT 315 LAB L100.2000 6.2-12.0 fl Normal MPV 8.7 LAB L100.2100 47-70 % Normal NEUT% 65.0 LAB L100.2200 19-41 % Normal LY% 21.8 LAB L100.2300 0-10 % Normal MONO% 8.3 LAB L100.2400 0-5 % Normal EO% 4.0 LAB L100.2500 0-1 % Normal BASO% 0.7 LAB L100.2550 0.0-0.9 % Normal IM GRAN % 0.200 Result Comment: IG% - Immature Granulocytes (promyelocytes, myelocytes and metamyelocytes) > 1% indicates that a LEFT SHIFT is Present. LAB L100.2620 2.0-7.7 X10 3/uL Normal Absolute Neut 3.9 LAB L100.2720 0.83-4.51 X10 3/ul Normal Absolute Lymph 1.32 Performed By: #### L100.0100 #### [facility] [address] [place], [address] BEDSIDE GLUCOSE Collected: 11/07/2017 Status: F Source: [place] 6:26 AM [facility] REPOSITORY TYPE CODE TESTS RESULT OUT OF REFERENCE UNITS RANGE LAB L501.080 70-110 mg/dL High BEDSIDE GLU 113 Result Comment: MANAGEMENT OF PATIENT CARE PER NURSING PROTOCOL Performed By: #### L501.080 #### [facility] Laboratory Point of Care [address] [facility] [address] 12 LEAD ELECTROCARDIOGRAM Observed: 11/06/2017 Status: F Source: [place] 1:01 PM [facility] REPOSITORY [facility] Cardiovascular Services [address] [place] [address] 12 Lead EKG 11/04/17 0024 MR#: [id number] Acct: [id number] Name: VEE HYATT Rep #: [id number] : 1940 77 From: Orville Dumont MD Attending Dr: Status: DEP ER Ordering Dr: Dilip Okeefe MD Date: 11/04/17 Location: ED Sex: F C Admitted: Test Reason : SOB Blood Pressure : / mmHG Vent. Rate : 074 BPM Atrial Rate : 074 BPM P-R Int : 148 ms QRS Dur : 078 ms QT Int : 422 ms P-R-T Axes : 007 005 015 degrees QTc Int : 468 ms Normal sinus rhythm T wave abnormality, consider anterior ischemia Abnormal ECG Confirmed by ORVILLE DUMONT MD ([id number]), editorial cartoonist KELLEN SUAREZ ([id number]) on 11/06/2017 1:00:56 PM Referred By: SL Confirmed By:ORVILLE DUMONT MD 11/06/17 1301 Date Orville Dumont MD CC: Jose L Valenzuela MD; Dilip Okeefe MD Signed BEDSIDE GLUCOSE Collected: 11/06/2017 Status: F Source: SUSSY 6:35 AM [facility] REPOSITORY TYPE CODE TESTS RESULT OUT OF RANGE REFERENCE UNITS LAB L501.080 70-110 mg/dL Normal BEDSIDE GLU 103 Result Comment: MANAGEMENT OF PATIENT CARE PER NURSING PROTOCOL Performed By: #### L501.080 #### [facility] Laboratory Point of Care [address] [place] [address] KIDNEY AND BLADDER Observed: 11/05/2017 Status: F Source: SUSSY 9:26 AM [facility] REPOSITORY [facility] Imaging Services [address] [place] [address] Kidney and Bladder MR#: [id number] Acct: [id number] Name: VEE HYATT Rep #: [id number] : 1940 F 77 From: Fan Benavidez MD PCP: Jose L Valenzuela MD Status: ADM IN Study: Kidney and Bladder Date of Exam: 11/05/17 Exam# [id number] Ordering Dr: Perez Moseley MD STUDY: RENAL ULTRASOUND - COMPLETE REASON FOR EXAM: Female, 77 years old. Possible left renal mass. TECHNIQUE: Ultrasound evaluation of the kidneys was performed with real-time and static vigil-scale imaging. Limited exam due to overlying bowel gas. COMPARISON: Comparison is made with prior CT scan and abdomen dated October 19, 2017. FINDINGS: Small right pleural effusion. RIGHT KIDNEY: Normal location of the right kidney, which is normal in size. The right kidney measures 10.2 cm x 5.1 cm x 4.1 cm. There is a normal cortex of the right kidney. The renal cortex measures 1.6 cm. There is no right renal mass or cyst. There are no right renal calculi. There is an extra-renal pelvis of the right kidney. There is no distention of the renal calyces. DISTAL RIGHT URETER: There is non-visualization of the distal right ureter. There is no demonstrated right ureterovesical junction calculus. There is no demonstrated right ureteral jet. LEFT KIDNEY: Normal location of the left kidney, which is normal in size. The left kidney measures 10.3 cm x 5.0 sinus by 5.5 cm. There is a normal cortex of the left kidney. The renal cortex measures 1.[address] scan of the abdomen dated back to March 11, 2014 demonstrated a stable 1.4 cm hypodensity in the posterior superior pole of the left kidney. This may represent a complex cyst. There is a cm x 1 cm calculus in the midportion of the left kidney. There is no left hydronephrosis. DISTAL LEFT URETER: There is non-visualization of the distal left ureter. There is no demonstrated left ureterovesical junction calculus. There is no demonstrated left ureteral jet. BLADDER: The bladder is empty at the time examination. US/Kidney and Bladder IMPRESSION: Limited evaluation of the left kidney due to overlying bowel gas. Stable nodular density in the superior posterolateral aspect of the left kidney most likely representing a complex cyst. Electronically Signed: Fan Benavidez MD at 11:17 EST Tel [phone], Service support , CC: Jose L Valenzuela MD; Perez Moseley MD Legal Recovery Specialist: Signed HISTORY AND PHYSICAL Observed: 11/05/2017 Status: F Source: [place] WAT[place] EXAM 8:42 AM [facility] REPOSITORY [facility] Medical Records Department [address] [place] [address] History and Physical 11/03/172018 MR#: [id number] Acct: [id number] Name: VEE HYATT Rep #: [id number] : 1940 77 From: Perez Moseley MD PCP: Jose L Valenzuela MD Status: ADM IN Y Location: [facility] TCU05-1 Problem List (1) Diaphragmatic hernia Status: Chronic (2) Diabetes mellitus Status: Chronic (3) Coronary artery disease Status: Chronic (4) Obesity Status: Chronic (5) GERD (gastroesophageal reflux disease) Status: Chronic (6) Depression Status: Chronic (7) HLD (hyperlipidemia) Status: Chronic (8) Hyponatremia Status: Chronic Comment: also has chronic mild hyponatremia (9) Dyskinesia, tardive Status: Chronic (10) Brain aneurysm Status: Chronic (11) Takotsubo syndrome Status: Chronic (12) Hypertension Status: Chronic (13) Abdominal pain Status: Acute Qualifiers: History of Present Illness Date of Admission: 11/03/17 Chief Complaint: Here for rehabilitation, strengthening, prior to discharge home alone. The patient is a 77 year old Female with below past medical history presented to [facility] Emergency Department 10/26/2017 with abdominal pain. 10/25/2017 EKG sinus rhythm with 1st degree AV block, non-specific ST AND T wave abnormality. Abdominal pain x several hours, upper abdomen. Nausea, recent flu with diarrhea. WBC 13.3, Glucose 146, Lipase 43, Hepatic panel okay, INR, PTT normal. Troponin normal.. CT showed left renal mass concerning for cancer, diaphragmatic hernia, uterine fibroid. IV fluids, phenergan, pain meds. Patient wanted to go home, but unable to walk. 10/26/2017 Admit to Hospital. PT/OT for debility. 10/26/2017 Dr. Trinidad recommended diaphragmatic hernia repair at tertiary care center. 10/26/2017 CTA chest negative for pulmonary embolism, showed bibasilar atelectasis. Large anterior diaphragmatic hernia with small bowel loops, colonic segments, mesenteric fat radiating into the right anterior thoracic cavity. 10/26/2017 CTA abdomen/pelvis, as above, and left renal mass 1.7CM concerning for renal cell carcinoma. 10/26/2017 Transfer to [facility] for further evaluation of diaphragmatic hernia with strangulation and gangrene. At [facility], patient thought too high risk for surgery. Patient was treated supportively. 11/03/2017 Admit to TCU for rehabilitation, strengthening, prior to discharge home alone. 11/04/2017 Resident became increasingly short of breath, respiratory therapy recommended BIPAP. Resident was sent to [facility] Emergency Department for evaluation, no acute findings noted. I had phone conversation with Dr. Okeefe, resident's son states Dr. Bar at [facility] able and willing to perform diaphragmatic hernia repair, but resident needs to get stronger. Surgeons at [facility] thought resident was too high risk to operate. Resident wants to go home, she is undecided about surgery and often defers to her son for decision making. Past Medical History Past Medical History (Chronic Problems): Chronic Problems Diaphragmatic hernia (Chronic) Diabetes mellitus (Chronic) Coronary artery disease (Chronic) Obesity (Chronic) GERD (gastroesophageal reflux disease) (Chronic) Hx of appendectomy (Chronic) Benign essential HTN (Chronic) Depression (Chronic) HLD (hyperlipidemia) (Chronic) Overweight (BMI 25.0-29.9) (Chronic) CAD (coronary artery disease) (Chronic) Diabetes mellitus, type II (Chronic) Hyponatremia (Chronic) also has chronic mild hyponatremia Traumatic closed nondisplaced fracture of neck of left femur (Chronic) Status post closed reduction with internal fixation (Chronic) left femur 06/22, Dr Spears, [facility] Tinea unguium (Chronic) Dyskinesia, tardive (Chronic) Takatsuki syndrome (Chronic) Brain aneurysm (Chronic) Takotsubo syndrome (Chronic) Hypertension (Chronic) Allergies No Known Allergies Allergy (Verified 03/17/17 10:29) Home Medications: Ambulatory Orders Medication Instructions Recorded Clonidine HCl 0.1 tab PO DAILY 03/17/17 Fluoxetine [Prozac] 60 mg PO DAILY 03/17/17 Lorazepam [Ativan] 1 mg PO BID 03/17/17 Losartan Potassium 100 mg PO DAILY 03/17/17 Surgical History: appendectomy, cholecystectomy, herniorrhaphy, tonsillectomy, - - 06/22/15 left hip CRIF Psychiatric History: Anxiety, Depression 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 Denies: Nausea, Vomiting Genitourinary: Denies: Dysuria Musculoskeletal: Denies: Joint Pain, Joint Tenderness Skin: Denies: Rash, Wounds Neurological: Denies: Numbness, Tingling, Focal weakness Psychiatric: Denies: Anxiety, Depression, Homicidal Ideations, Suicidal Ideations Hematologic/ Lymphatic: Denies: Easy Bruising, Easy Bleeding VTE Information - Inpt Only VTE Present on Admission: No VTE Mechan Device Prophylaxis: Knee High DISHA Hose VTE Pharm Prophylaxis ordered?: Yes - Physical Exam General: Alert, Oriented x3, Cooperative HEENT: Atraumatic, PERRLA, EOMI, Normocephalic Neck: Supple, No JVD, Negative Carotid Bruits Lungs: Clear to auscultation, Normal air movement Cardiovascular: Regular rate, No murmurs Abdomen: Bowel Sounds Present, Soft, Non Tender Extremities: No edema, Capillary Refill Less than 3 Seconds Skin: No rashes, No breakdown Musculoskeletal: No Tenderness to Palpation of Joints or Extremities Neurological: Cranial nerves II-XII grossly intact Psych/Mental Status: Normal Affect, Appropriate Vital Signs Temp Pulse Resp BP Pulse Ox 98.6 F 76 22 H 153/81 H 92 11/03/17 20:09 11/03/17 20:09 11/03/17 20:09 11/03/17 20:09 11/03/17 20:09 Oxygen Flow Rate 3 Oxygen Delivery Method Nasal Cannula Weight: 82.9 kg Body Mass Index (BMI) 31.4 Finger Stick Blood Glucose 176 Assessment/Plan 77 year old female with complex past medical history hospitalized for abdominal pain secondary to strangulated diaphragmatic hernia with gangrene, treated non-operatively, complicated left renal mass suspicious for renal cell carcinoma, admitted to TCU for rehabilitation, strengthening, prior to discharge home alone. * Debility - PT/OT. * Pain - Tylenol 1000MG Q8H PRN mild pain, Oxycodone 5MG Q6H PRN moderate pain. * Bowel - Miralax 17GM daily, Senna/colace 2 tablets BID, Dulcolax 10MG PO daily PRN. * Pneumonia vaccination - Administer Prevnar 13 and/or Pneumovax 23 as necessary. * DVT prophylaxis - Lovenox 40MG SC daily. * Coronary Artery Disease - Losartan 100MG daily, Aspirin 81MG daily. * Hyperlipidemia - Atorvastatin 20MG QHS. * Hypertension - Losartan 100MG daily, Minoxidil 2.5MG BID, Clonidine 0.1MG daily. * Depression - Fluoxetine 60MG daily. * Shortness of breath - Duoneb 3ML Q4H. * Anxiety - Lorazepam 1MG BID. * Hypomagnesemia - Mag Oxide 400MG QHS. * Hypophosphatemia - Neutra Phos 1 packet BID. * Nausea - Zofran 4MG Q8H PRN. * GERD - Pantoprazole 20MG daily. * Restless Legs Syndrome - Mirapex 0.75MG QHS. * Diaphragmatic hernia - Move up appt with Dr. Bar to evaluate for surgical options. * Left kidney mass - Order CT guided biopsy. 11/05/17 0842 <Electronically signed by Perez Moseley MD> Date Perez Moseley MD Cosigner Signature: Date (if applicable) CC: Jose L Valenzuela MD; Perez Moseley MD Signed BEDSIDE GLUCOSE Collected: 11/05/2017 Status: F Source: [place] 6:26 AM [facility] REPOSITORY TYPE CODE TESTS RESULT OUT OF REFERENCE UNITS RANGE LAB L501.080 70-110 mg/dL High BEDSIDE GLU 124 Result Comment: MANAGEMENT OF PATIENT CARE PER NURSING PROTOCOL Performed By: #### L501.080 #### [facility] Point of Care [address] [place] [address] EMERGENCY DEPARTMENT Observed: 11/05/2017 Status: F Source: SUSSY SUMMARY 1:11 AM [facility] REPOSITORY [facility] Medical Records Department [address] [place] [address] Emergency Department Summary 11/04/17 0254 MR#: [id number] Acct: [id number] Name: VEE HYATT Rep #: [id number] : 1940 77 From: Dilip Okeefe MD PCP: Jose L Valenzuela MD Status: DEP ER - ER Visit Summary Date of Service: 11/04/17 Chief Complaint: Shortness of breath History of Present Illness: The patient is a [address] Dumont and Dr. Jose L Ash. She reports that she was sent to [facility] October 26 to have repair of a diaphragmatic hernia. States that she was seen by general surgeons there and they felt that this was too high risk. She was sent to the TCU today. Patient reports that she has had shortness of breath is been present for the entire time. In fact, she reports that she called [address] [facility] because she was so short of breath. States that her shortness of breath is severe at times. It is mild currently. She reports that she has a cough sometimes. It is nonproductive. She denies any fever, chills, or chest pain. Physical Examination: Vitals: Stable. Afebrile. General: Well-nourished and well-developed. Head: Normocephalic atraumatic. Neck: Supple, no lymphadenopathy. No JVD. Nontender. Cardiovascular: Regular rate and rhythm. No murmurs. Respiratory: Mild respiratory distress with tachypnea. She has decreased breath sounds on the right.. Abdominal: Soft, nontender, nondistended, normal bowel sounds. No guarding, rebound, or peritoneal signs. Back: Nontender. Extremities: Nontender, 1+ pitting edema of her lower extremity bilaterally.. Skin: Normal color, no rash. Neurologic: Alert and oriented 3. Cranial nerves II through XII are intact. Normal strength and sensation. Psych: Normal affect. Test Results: Is a large right diaphragmatic hernia that is unchanged. There is no acute disease. EKG is sinus at 74 with artifact and nonspecific ST changes. Troponin is negative. Chem-7 is marked for CO2 33, glucose 110 and calcium 8.3. CBC is more for an H AND H of 13 E3.3 and 11. Emergency Department Course and Treatment: She was given albuterol and Atrovent aerosols. She was given half a milligram of Ativan IV. She was given morphine and Zofran IV. She is resting comfortably. However, she does still appear tachypneic. I had a prolonged discussion with the patient and her son about her prognosis. Patient reports that she wants to just go home. Son who is the medical power of deputy prosecuting attorney reports that he wants patient to have the surgery at [place]. I have offered to transfer to [facility] today. He would like her to go back to TCU and have physical therapy to get her strength up prior to the surgery. The son does not want the patient to be a DNR Com[facility] arrest. He would like everything done. Treatment Plan: The patient was discussed with Dr. Douglas. He states that he will admit her back to the TCU. He does state that he will discuss the family her prognosis and potentially get hospice involved tomorrow. Disposition: Transferred to TCU in serious condition. Impression: 1. Large right diaphragmatic hernia. This note was generated with [employer] dictation software. It may contain incorrect words, spelling, and punctuation that were not noted in review of the chart prior to signing ED Disposition - Plan for ED Patient: Disposition: Home or Assisted Living Chief Complaint: Shortness of Breath Instructions: ED Dyspnea Shortness of Breath Referrals: Perez Moseley Chi, MD [COURTESY STAFF PHYSICIAN] - As soon as possible What to do if you have Problems For any increased pain, shortness of breath, bleeding, nausea or vomiting, chest pain, or any unexpected problems, contact your Primary Care Provider. Call [facility] ([phone]) or report to the closest Emergency Room. Call 911 if necessary. 11/05/17 0111 <Electronically signed by Dilip Okeefe MD> Date Dilip Okeefe MD Cosigner Signature (If Indicated): Date CC: Jose L Valenzuela MD -KIDNEY AND BLADDER Observed: 11/05/2017 Status: F [facility]:00 AM [facility] REPOSITORY Images were obtained outside of [facility] [id number] CHEST PA AND LATERAL Observed: 11/04/2017 Status: F Source: SUSSY 6:59 PM [facility] REPOSITORY [facility] Imaging Services [address] [place] [address] Chest PA and Lateral MR#: [id number] Acct: [id number] Name: VEE HYATT Rep #: [id number] : 1940 F 77 From: Kellen Kelly MD PCP: Jose L Valenzuela MD Status: ADM IN Study: Chest PA and Lateral Date of Exam: 11/04/17 Exam# [id number] Ordering Dr: Perez Moseley MD XR Chest 2 Views INDICATION: POSITIVE TB TEST COMPARISON: CT chest October 25, 2017 TECHNIQUE: 2 views of the chest FINDINGS: There is redemonstration of elevation of the right hemidiaphragm with bibasilar atelectasis/consolidation. Bilateral pleural effusions are appreciated, new compared to the prior CT. There is no abnormal calcification or scarring noted in the lung apices. RAD/Chest PA and Lateral IMPRESSION: Elevation of the right hemidiaphragm, stable. New small bilateral pleural effusions with adjacent atelectasis/consolidation. No abnormality in the lung apices. at 1942 Reported and signed by: Kellen Kelly MD Electronically Signed: Kellen Kelly MD at 18:41 EST Tel , Service support , CC: Jose L Valenzuela MD; Perez Moseley MD Legal Recovery Specialist: Signed CBC W/DIFF, AUTOMATED Collected: 11/04/2017 Status: F Source: SUSSY 5:30 AM [facility] REPOSITORY TYPE CODE TESTS RESULT OUT OF RANGE REFERENCE UNITS LAB L100.1000 4.4-11.0 K/mm3 Normal WBC 6.5 LAB L100.1200 4.2-5.4 M/mm3 Low RBC 3.59 LAB L100.1300 12.0-15.0 g/dl Low HGB 10.6 LAB L100.1400 37-47 % Low HCT 32.8 LAB L100.1500 81-99 fL Normal MCV 91.4 LAB L100.1600 27.0-32.0 pg Normal MCH 29.5 LAB L100.1700 32-36 g/gl Normal MCHC 32.3 LAB L100.1810 11.6-14.6 % Normal RDW CV 13.1 LAB L100.1820 35.1-43.9 fl Normal RDW SD 42.4 LAB L100.1900 150-450 K/mm3 Normal PLT 254 LAB L100.2000 6.2-12.0 fl Normal MPV 8.9 LAB L100.2100 47-70 % Normal NEUT% 67.1 LAB L100.2200 19-41 % Normal LY% 22.2 LAB L100.2300 0-10 % Normal MONO% 6.9 LAB L100.2400 0-5 % Normal EO% 2.8 LAB L100.2500 0-1 % Normal BASO% 0.8 LAB L100.2550 0.0-0.9 % Normal IM GRAN % 0.200 Result Comment: IG% - Immature Granulocytes (promyelocytes, myelocytes and metamyelocytes) > 1% indicates that a LEFT SHIFT is Present. LAB L100.2620 2.0-7.7 X10 3/uL Normal Absolute Neut 4.4 LAB L100.2720 0.83-4.51 X10 3/ul Normal Absolute Lymph 1.44 Performed By: #### L100.0100 #### [facility] [place], [place], [address] CBC W/DIFF, AUTOMATED Collected: 11/04/2017 Status: F Source: [place] 1:16 AM [facility] REPOSITORY TYPE CODE TESTS RESULT OUT OF RANGE REFERENCE UNITS LAB L100.1000 4.4-11.0 K/mm3 Normal WBC 6.8 LAB L100.1200 4.2-5.4 M/mm3 Low RBC 3.66 LAB L100.1300 12.0-15.0 g/dl Low HGB 11.0 LAB L100.1400 37-47 % Low HCT 33.3 LAB L100.1500 81-99 fL Normal MCV 91.0 LAB L100.1600 27.0-32.0 pg Normal MCH 30.1 LAB L100.1700 32-36 g/gl Normal MCHC 33.0 LAB L100.1810 11.6-14.6 % Normal RDW CV 13.2 LAB L100.1820 35.1-43.9 fl Normal RDW SD 42.4 LAB L100.1900 150-450 K/mm3 Normal PLT 267 LAB L100.2000 6.2-12.0 fl Normal MPV 8.7 LAB L100.2100 47-70 % Normal NEUT% 58.9 LAB L100.2200 19-41 % Normal LY% 30.6 LAB L100.2300 0-10 % Normal MONO% 6.8 LAB L100.2400 0-5 % Normal EO% 2.9 LAB L100.2500 0-1 % Normal BASO% 0.7 LAB L100.2550 0.0-0.9 % Normal IM GRAN % 0.100 Result Comment: IG% - Immature Granulocytes (promyelocytes, myelocytes and metamyelocytes) > 1% indicates that a LEFT SHIFT is Present. LAB L100.2620 2.0-7.7 X10 3/uL Normal Absolute Neut 4.0 LAB L100.2720 0.83-4.51 X10 3/ul Normal Absolute Lymph 2.08 Performed By: #### L100.0100 #### [facility] [address] [place], [address] BASIC METABOLIC Collected: 11/04/2017 Status: F Source: [place] WATERS PROFILE ([facility]) 1:16 AM [facility] REPOSITORY Order Comment: 'TROP' Serial specimen #1, #2, #3, or #4: 1 TYPE CODE TESTS RESULT OUT OF RANGE REFERENCE UNITS LAB L501.0100 74-106 mg/dL High GLU 110 Result Comment: Fasting Glucose result from 100 to 125 mg/dL suggests IMPAIRED HOMEOSTASIS per A.D.A. criteria. Please note revised GLUCOSE reference range effective 2017. LAB L501.1000 7-18 mg/dL Normal BUN 9 LAB L501.1100 0.55-1.02 mg/dL Normal CREAT,SERUM 0.64 Result Comment: The validity of the calculated GFR AND GFRAA in patients over 70 years has not been determined. Clinical correlation is essential. LAB L501.1110 >60 mL/min Normal EST GFR 95 Result Comment: Non- GFR Calc LAB L501.1115 >60 mL/min Normal EST GFR - AA 115 Result Comment: GFR Calc LAB L501.1255 ml/min Normal Estimated CRCL 39.39 LAB L501.1300 10-20 RATIO Normal BUN/CRE 14.1 LAB L501.2200 8.5-10 mg/dL Low .1 CA 8.3 LAB L501.5300 136-14 mmol/L Normal 5 NA 139 LAB L501.5600 3.5-5. mmol/L Normal 1 K 4.2 Result Comment: Moderate Hemolysis, Result may be falsely increased. LAB L501.5900 98-107 mmol/L Normal CL 100 LAB L501.6100 21.0-32.0 mmol/L High CO2 33.0 LAB L501.6200 5-15 Normal 6 GAP Performed By: #### L500.2500, L501.4010 #### [facility] [address] [place], [address] TROPONIN-I Collected: 11/04/2017 Status: F Source: [place] 1:16 AM [facility] REPOSITORY Order Comment: 'TROP' Serial specimen #1, #2, #3, or #4: 1 TYPE CODE TESTS RESULT OUT OF RANGE REFERENCE UNITS LAB L501.4010 <0.06 ng/mL Normal < 0.02 TROPONIN-I Result Comment: TROPONIN-I EXPECTED VALUES <0.05 NEGATIVE 0.06 - 0.59 AT RISK OF FL > OR = 0.60 SUGGEST FL Performed By: #### L500.2500, L501.4010 #### [facility] [address] [place], [address] CHEST 1 VIEW Observed: 11/04/2017 Status: F Source: HEAD WATERS (PORTABLE) 12:11 AM [facility] REPOSITORY [facility] Imaging Services [address] [place] [address] Chest 1 View (Portable) MR#: [id number] Acct: [id number] Name: VEE HYATT Rep #: [id number] : 1940 F 77 From: Francisco Javier Alexander PCP: Jose L Valenzuela MD Status: REG ER Study: Chest 1 View (Portable) Date of Exam: 11/04/17 Exam# [id number] Ordering Dr: Dilip Okeefe MD STUDY: X-RAY CHEST REASON FOR EXAM: Female, 77 years old. Shortness of breath. TECHNIQUE: AP portable chest. COMPARISON: October 19, 2017. CTA chest October 25, 2017. FINDINGS: Large right diaphragmatic hernia unchanged. No focal infiltrates or effusions. No pneumothorax. Borderline cardiomegaly. Normal mediastinum and quinton. Normal visualized pulmonary arteries. Normal visualized aortic arch and descending thoracic aorta. Normal visualized thoracic spine. Normal visualized ribs, clavicles, and shoulders. There is no demonstrated abnormality of the visualized soft tissue structures of the upper abdomen. RAD/Chest 1 View (Portable) IMPRESSION: No acute cardiopulmonary disease. Large right diaphragmatic hernia, unchanged. Electronically Signed: Francisco Javier Alexander MD at 0:41 EST , Service support , CC: Jose L Valenzuela MD; Dilip Okeefe MD Legal Recovery Specialist: Signed CR-CHEST PA AND Observed: 11/04/2017 Status: F Source: [facility] IMPORT 12:00 AM [facility] REPOSITORY Images were obtained outside of [facility] [id number] GLUCOSE METER Collected: 11/03/2017 Status: F Source: [facility] 5:04 PM HEALTH SYSTEM REPOSITORY TYPE CODE TESTS RESULT OUT OF REFERENCE UNITS RANGE LAB GLUBL(LOINC 70-99 mg/dL ) High Glucose Meter 118 Result Comment: RN NOTIFIED Performed By: #### GLMET #### [place] [address] CASE MANAGEM Observed: 11/03/2017 Status: COMPLETED Source: [place] 2:58 PM [facility] OTHER CAMPUS REPOSITORY HNO ID: [id number] Author: Chiquita (Specialist) Glo Service: (none) Author Type: (none) Type: Care Mgt Progress Note Filed: 11/03/2017 3:00 PM Note Text: Patient will be picked up by [facility] at 5:30pm going to [facility]. I notified adrian Motta at [phone]. CASE MANAGEM Observed: 11/03/2017 Status: COMPLETED Source: [place] 2:45 PM [facility] [place] REPOSITORY HNO ID: [id number] Author: Carlene (Rn) PRACHI De La Vega Service: Care Management Author Type: Registered Nurse Type: Care Mgt Progress Note Filed: 11/03/2017 2:48 PM Note Text: CARE MANAGEMENT DISCHARGE NOTE SERVICE DATE: 11/03/2017 SERVICE TIME: 2:45 PM LOS: 8 days Admission Date: 10/26/2017 DISCHARGE ARRANGEMENT (list agency and phone number) jail facility Provider: [facility] HANDOFF COMMUNICATION: RN-to-RN Report TRANSPORTATION ARRANGEMENTS: Ambulance: Transport Agency and Phone: [facility] ambulance ( [facility] ) [phone] / [phone]. Discussion of financial coverage occurred with Kalia kessler. Patient will discharge to [facility] at 1730 via cot. Kalia Kessler, aware of possible OOP costs. He was notified of discharge time via our Senior Sous Chef. ADDITIONAL CONTACT RESOURCES: Please call report to [phone]. Needs Prior to Discharge: Ready for Discharge Await transport at 1730. SIGNATURE: Carlene De La Vega RN PATIENT NAME: Vee Hyatt DATE: November 03, 2017 TIME: 2:45 PM PAGER/CONTACT #: [phone] CNDS Observed: 11/03/2017 Status: COMPLETED Source: [place] 2:27 PM [facility] REPOSITORY HNO ID: [id number] Author: Rick Villatoro Service: Trauma Author Type: Physician Type: Discharge Summaries Filed: 11/04/2017 12:32 PM Note Text: DISCHARGE SUMMARY PATIENT NAME: Vee Hyatt Admission Information Admission Information ADMIT DATE: 10/26/2017 DISCHARGE DATE: 11/03/2017 MY DOCTORS AND MEDICAL TEAM: My Main Hospital Doctor: Lacho Ludwig Primary Care Provider: Diana George CNP My Medical Team Members: Treatment Team: Attending Provider: Lacho Ludwig MY CONDITION AT DISCHARGE: Stable REASON I WAS IN THE HOSPITAL: admitted for right sided diaphragmatic hernia SUMMARY OF WHAT HAPPENED WHILE I WAS IN THE HOSPITAL: Evaluated by the surgical service and admitted for further evaluation and pain management. Non surgical care and therapy evaluation for discharge needs. OTHER PROBLEMS/DIAGNOSIS: Active Problems: Diaphragmatic hernia Resolved Problems: * No resolved hospital problems. * OPERATIONS PERFORMED WHILE IN THE HOSPITAL: None IMPORTANT TEST/PROCEDURES: No procedures performed TEST RESULTS NOT AVAILABLE AT THIS TIME: No pending results Discharge Disposition Discharge Disposition: [facility] Facility - Less than 30 Days Activity When You Leave the Hospital May bathe and shower No walking restrictions Resume pre-hospital activity Diet Instructions Resume your pre-hospital diet For Pain When You Leave the Hospital If you become constipated, you may use any ljxj-lhv-bgxvrmv treatment such as Milk of Magnesia, Sennakot, Prune Juice, Suppositories, etc. in addition to the stool softener/fiber supplement No alcohol or driving while on pain medication Use ibuprofen (Motrin, Advil) as recommended on the bottle Use the dispensed medication (see prescription) You should use an gfoh-fel-dbefpgs stool softener (Docusate sodium) and/or a fiber supplement (Metamucil, Fiber Con) every day while taking prescribed pain medication Call Your Doctor If You have persistent nausea/vomiting over 24 hours You have swollen glands or cold and clammy skin Follow Up Appointments Follow-Up Appointment With: PCP When: In 2 weeks FOLLOW-UP APPOINTMENTS ALREADY SCHEDULED WITH A [facility] PROVIDER: No future appointments. DISCHARGE MEDICATION: Current Discharge Medication List START taking these medications acetaminophen (TYLENOL) 650 mg Take 650 mg by mouth every 6 hours as needed. oxyCODONE IR (ROXICODONE) 5 mg Take 5 mg by mouth every 6 hours as needed. Earliest Fill Date: 11/03/17 Qty: 28 tablet Refills: 0 Associated Diagnoses:Diaphragmatic hernia with obstruction, without gangrene ipratropium-albuterol (DUONEB) 3 mL Inhale 3 mL as instructed every 4 hours. potassium-sodium phosphates (NEUTRA-PHOS,PHOS-NAK) 1 Packet Take 1 Packet by mouth twice daily. CONTINUE these medications which have NOT CHANGED cloNIDine HCl (CATAPRES) 0.1 mg Take 0.1 mg by mouth. Take 1 half tablet Associated Diagnoses:Essential hypertension, benign; LENA (generalized anxiety disorder) LORazepam (ATIVAN) 1 mg Take 1 mg by mouth twice daily. Associated Diagnoses:LENA (generalized anxiety disorder) losartan (COZAAR) 100 mg Take 100 mg by mouth once daily. Associated Diagnoses:Essential hypertension, benign magnesium oxide (MAG-OX) 400 mg Take 400 mg by mouth daily at bedtime. Associated Diagnoses:Essential hypertension, benign minoxidil (LONITEN) 2.5 mg Take 2.5 mg by mouth twice daily. Associated Diagnoses:Essential hypertension, benign pantoprazole DR (PROTONIX) 20 mg Take 20 mg by mouth once daily. Associated Diagnoses:Gastroesophageal reflux disease, esophagitis presence not specified Pramipexole 0.75 mg Take 0.75 mg by mouth daily at bedtime. Associated Diagnoses:RLS (restless legs syndrome) ondansetron (ZOFRAN) 4 mg Take 4 mg by mouth every 8 hours as needed. Qty: 30 tablet Refills: 5 Associated Diagnoses:Nausea simvastatin (ZOCOR) 40 mg Take 40 mg by mouth daily at bedtime. FLUoxetine (PROzac) 60 mg Take 60 mg by mouth once daily. ASPIRIN 81 MG CHEWABLE TAB Take one(1) tablet daily. Refills: 0 STOP taking these medications dicyclomine (BENTYL) 20 mg Comments: Reason for Stopping: TIME OF CARE: Discharge Management: I personally spent greater than 30 minutes involved in the discharge management of this patient. SIGNATURE: SHAWN Velez PAGER/CONTACT #: [phone] DATE: November 03, 2017 TIME: 2:28 PM GLUCOSE METER Collected: 11/03/2017 Status: F Source: [facility] 11:39 AM HEALTH SYSTEM REPOSITORY TYPE CODE TESTS RESULT OUT OF REFERENCE UNITS RANGE LAB GLUBL(LOINC 70-99 mg/dL ) High Glucose Meter 124 Result Comment: RN NOTIFIED Performed By: #### GLMET #### [place] [address] CHEST 1 VIEW Observed: 11/03/2017 Status: F Source: [facility] 11:28 AM HEALTH SYSTEM REPOSITORY Performed at [facility] APPROVED BY: Ulises Fajardo MD EXAM TITLE: CHEST 1 VIEW DATE: 11/03/2017 11:23 COMPARISON: 11/01/2017 CLINICAL INDICATION/HISTORY: Respiratory distress TECHNIQUE: AP upright portable chest FINDINGS: No significant interval change. Bilateral pleural effusion again noted, yayjm-fx-qbaxowns on the left and moderate on the right with presumed adjacent compressive atelectasis. Cardiac size is within normal limits and unchanged. There is decreased bone density. IMPRESSION: No change. CASE MANAGEM Observed: 11/03/2017 Status: COMPLETED Source: [place] 8:49 AM [facility] [place] REPOSITORY HNO ID: [id number] Author: Carlene (Rn) PRACHI De La Vega Service: Care Management Author Type: Registered Nurse Type: Care Mgt Progress Note Filed: 11/03/2017 12:58 PM Note Text: CARE MANAGEMENT PROGRESS NOTE SERVICE DATE: 11/03/2017 SERVICE TIME: 8:50 AM LOS: 8 days * Addendum 12:57 PM* Spoke with Trauma resident at 1100, who stated he would complete discharge orders as soon as he was able to. He is managing several traumas at the moment. Will continue to watch for orders. Needs Prior to Discharge: Ready for Discharge Epic reviewed. [facility] if patient is medically stable for discharge. Paged #[phone] to request discharge orders. Please call [phone] if intending to discharge this patient. Will continue to follow clinical progress for discharge needs. SIGNATURE: Carlene De La Vega RN PATIENT NAME: Vee Hyatt DATE: November 03, 2017 TIME: 8:50 AM PAGER/CONTACT #: [phone] GLUCOSE METER Collected: 11/03/2017 Status: F Source: [facility] 7:02 AM HEALTH SYSTEM REPOSITORY TYPE CODE TESTS RESULT OUT OF REFERENCE UNITS RANGE LAB GLUBL(LOINC 70-99 mg/dL ) High Glucose Meter 108 Result Comment: RN NOTIFIED Performed By: #### GLMET #### [place] [address] PROGRESS Observed: 11/03/2017 Status: COMPLETED Source: [place] 6:17 AM [facility] [place] REPOSITORY HNO ID: [id number] Author: Diane De Los Santos Service: General Surgery Author Type: Physician Type: Progress Notes Filed: 11/03/2017 2:50 PM Note Text: General Surgery Progress Note SERVICE DATE: 11/03/2017 SUBJECTIVE: NAEON. Anxious this morning. Tolerating PO. (+) BF Tolerating diet DIET CARBOHYDRATE CONTROLLED OBJECTIVE: Vitals: Temp (24hrs), Av.9 ?C (98.4 ?F), Min:36.8 ?C (98.2 ?F), Max:37 ?C (98.6 ?F) BP 131/69 Pulse 75 Temp 36.8 ?C (98.2 ?F) (Oral) Resp 20 Ht 162.6 cm (5' 4) Wt 77.1 kg (170 lb) SpO2 97% BMI 29.18 kg/m2 O2 Therapy: Nasal Cannula IANDO: Date 11/02/17699 - 11/03/17 0659 11/03/17699 - 11/04/17 0659 Shift 5226-3420 9946-1287 2301-6596 24 Hour Total 7213-5785 2346-4076 5379-3349 24 Hour Total I N T A K E PO 300 240 540 PO 300 240 540 Shift Total 300 240 540 O U T P U T Urine 200 250 450 Void (ml) 200 250 450 Urine Incontinence/Not Saved 2 x 2 x 2 x 6 x # of BMs Number of BMs 1 x 1 x Shift Total 200 250 450 Weight (kg) 77.1 77.1 77.1 77.1 77.1 77.1 77.1 77.1 MEDICATIONS Current Facility-Administered Medications: saliva substitute combo no.9 15 mL (BIOTENE mouthwash) 15 mL MUCOUS MEMBRANE (TOPICAL MOUTH AND THROAT) TID PRN cloNIDine HCl 0.1 mg tab(s) (CATAPRES) 0.1 mg ORAL q 8 H potassium-sodium phosphates 1 Packet (NEUTRA-PHOS,PHOS-NAK) 1 Packet ORAL PC and HS pantoprazole DR 40 mg tab(s) (PROTONIX) 40 mg ORAL DAILY (6 AM) acetaminophen 650 mg tab(s) (TYLENOL) 650 mg ORAL q 6 H PRN oxyCODONE IR 5 mg tab(s) (ROXICODONE) 5 mg ORAL q 6 H PRN morphine 2-4 mg injection 2-4 mg INTRAVENOUS q 3 H PRN insulin lispro pen (rapid acting) (HumaLOG KWIKPEN) SUBCUTANEOUS w MEALS AND HS ipratropium-albuterol 3 mL nebulizer solution (DUONEB) 3 mL INHALATION q 4 H PRN LORazepam 1 mg tab(s) (ATIVAN) 1 mg ORAL BID enoxaparin 40 mg injection (LOVENOX) 40 mg SUBCUTANEOUS DAILY ondansetron (PF) 4 mg injection (ZOFRAN) 4 mg INTRAVENOUS q 4 H PRN losartan 100 mg tab(s) (COZAAR) 100 mg ORAL DAILY pramipexole 0.75 mg tab(s) (MIRAPEX) 0.75 mg ORAL AT BEDTIME minoxidil 2.5 mg tab(s) (LONITEN) 2.5 mg ORAL BID FLUoxetine 60 mg cap(s) (PROzac) 60 mg ORAL DAILY atorvastatin 20 mg tab(s) (LIPITOR) 20 mg ORAL AT BEDTIME dextrose 40 % 15 g (INSTA-GLUCOSE) 15 g ORAL PRN Or glucagon 1 mg injection (GLUCAGEN) 1 mg INTRAMUSCULAR PRN Or dextrose 50% in water 25 mL syringe 12.5 g INTRAVENOUS PRN Labs: Recent Labs 11/01/17 1420 11/01/17 0348 10/31/17 0840 NA -- 140 -- K 3.4* 3.2* -- CHLOR -- 107 -- CO2 -- 27 -- BUN -- 5* -- CREAT -- 0.62 -- GLUC -- 113* -- ANION -- 9 -- CA -- 8.4* -- MG -- 1.8 1.8 P -- 1.9* -- WBC -- 9.01 -- HB -- 11.9 -- HCT -- 34.9 -- PLT -- 207 -- Exam: GENERAL: mild distress 2/2 to anxiety, Alert NEURO: AANDOx3 HEENT: normocephalic, atraumatic LUNGS: bilateral wheezing CARDIAC: Regular rate and rhythm as above ABDOMEN: Soft, non-tender, non-distended EXTREMITIES: LOPEZ, No deformities, No edema SKIN: Skin color, texture, turgor normal, No rashes or lesions ASSESSMENT AND PLAN: Active Hospital Problems Diagnosis Date Noted - Diaphragmatic hernia 10/26/2017 77 yo female with right-sided diaphragmatic hernia ?? - Reg diet - pain/nausea control - duonebs - ISS - ambulation with assitance - Dispo planning, possible d/c today - Up to chair SIGNATURE: Elliot Strickland MD PATIENT NAME: Vee Hyatt DATE: November 03, 2017 TIME: 6:17 AM Pager: [phone] ========= SURGERY STAFF: I have personally seen and evaluated this patient and participated in the lomeli components of this encounter. I discussed the management of this case with the resident and independently confirmed the findings and plan of care as documented either attached or in their separate note from today. Any corrections or additional notes are made as needed. Patient reports abdominal pain has improved from admission and is now at her baseline. No nausea or vomiting. Tolerated diet. Receiving her prn nebs for wheezing. ?? Abd soft NT ND WBC normal CXR with no acute change CT reviewed, no evidence of obstruction ?? Appreciate consult by Dr. Murillo. He recommends no acute intervention given her recent flu and lack of obstructive symptoms. He will see her as an outpatient for further evaluation and after medical clearance. ?? Continue general diet. KVO IVF PT/OT Dc today to [place]. Plan to follow up with Dr. Bar, who previously worked up this hernia. I left a message for Dr. Bar to discuss the patient's hospital course. ?? Diane De Los Santos MD November 03, 2017 ========= GLUCOSE METER Collected: 11/02/2017 Status: F Source: [facility] 9:11 PM HEALTH SYSTEM REPOSITORY TYPE CODE TESTS RESULT OUT OF REFERENCE UNITS RANGE LAB GLUBL(LOINC 70-99 mg/dL ) High Glucose Meter 130 Result Comment: RN NOTIFIED Performed By: #### GLMET #### [place] [address] NURSING PROG Observed: 11/02/2017 Status: COMPLETED Source: [facility] 8:47 PM CLINIC OTHER CAMPUS REPOSITORY HNO ID: [id number] Author: Natalie Ngo) PRACHI Pope Service: Nursing Author Type: Registered Nurse Type: Nursing Progress Note Filed: 11/02/2017 9:00 PM Note Text: Nursing Progress Note Patient Name: Vee Hyatt Patient Location: [place] [id number]-* Event(s) / Intervention Note: The patient complained of the following problems: shortness of breath. The time of the event occurred at: 2029. The following intervention(s) were initiated: respiratory therapy called for breathing treatment, finished treatment at 2046. Pulse oxygenation at 96% on 3L of oxygen. After the initiated interventions, the following observation(s) were made: RT spoke with RN, expressed concern that pt is still labored in breathing after treatment. RT told RN that pt said she feels worse not better after receiving the treatment. RT is concerned because pt has no lung history or heart history that would explain the wheezing he and the RN heard in the pt's lungs. The RT suggested that the RN call the doctor to have them see the pt. This note was completed by: Natalie Pope RN RN reassessed pt. Pt sitting upright in bed with HOB at 60 degrees. She reported less shortness of breath and feels better now that the medicine kicked in. Lungs clear, no longer able to hear wheezing upon auscultation. Pt appears less labored in breathing and rate of breathing decreased from 24 breaths per minute with RT to 20 breaths per minute on assessment. Instructed pt to inform RN if she starts feeling the shortness of breath again and explained continuing to use the oxygen to keep the pt comfortable. GLUCOSE METER Collected: 11/02/2017 Status: F Source: [facility] 4:51 PM HEALTH SYSTEM REPOSITORY TYPE CODE TESTS RESULT OUT OF REFERENCE UNITS RANGE LAB GLUBL(LOINC 70-99 mg/dL ) High Glucose Meter 124 Result Comment: RN NOTIFIED Performed By: #### GLMET #### [facility] [address] [place] [address] NUTRITION Observed: 11/02/2017 Status: COMPLETED Source: [facility] 3:58 PM CLINIC OTHER CAMPUS REPOSITORY HNO ID: [id number] Author: Natividad Rivera RD Service: Nutrition Therapy Author Type: Registered Dietitian Type: Nutrition Filed: 11/02/2017 4:04 PM Note Text: NUTRITION THERAPY SCREENING NOTE SERVICE DATE: 11/02/2017 SERVICE TIME: 1410 NUTRITION CARE PLAN Pt seen for LOS #7. Admit with diaphramatic hernia and medical mgmt. Denies swallowing issues, but c/o dry mouth effecting her po intake. Drinking Boost Glucose Control supplements. Some abd pain, but +bm. Intervention: Continue to enc intake. Trial Biotene for her mouth as she was using at home. D/W RN. Continue supplements Coordination of Care: D/w RN and family Discharge Nutrition Recommendations: To be determined Present Diet Order: Carbohydrate Controlled Admission Weight: 77.1 kg (170 lb) Current Weight: 77.1 kg (170 lb) Body mass index is 29.18 kg/(m2). overweight Weight changes no issue per pt MNT Billing Type: Initial Assess/15 min 2 units SIGNATURE: Natividad Rivera RD PATIENT NAME: Vee Pedersene DATE: November 02, 2017 TIME: 3:59 PM PAGER: [phone] CASE MANAGEM Observed: 11/02/2017 Status: COMPLETED Source: [facility] 2:18 PM [facility] REPOSITORY HNO ID: [id number] Author: Roro (Rn) PRACHI Schwartz Service: Care Management Author Type: Registered Nurse Type: Care Mgt Progress Note Filed: 11/02/2017 2:22 PM Note Text: CARE MANAGEMENT PROGRESS NOTE SERVICE DATE: 11/02/2017 SERVICE TIME: 1417 LOS: 7 days Needs Prior to Discharge: Bed Availability Precert approved [facility]. Per Sima Gonsalves, Admissions--will have bed available for patient on Sunday (11/03). Will need transport via cot per family request--son notified of potential for copay/gmg-xn-pjmjzc costs. Await discharge orders when medically stable. SIGNATURE: Roro Schwartz RN PATIENT NAME: Vee Pedersene DATE: November 02, 2017 TIME: 2:18 PM PAGER/CONTACT #: [phone] GLUCOSE METER Collected: 11/02/2017 Status: F Source: [facility] 11:46 AM HEALTH SYSTEM REPOSITORY TYPE CODE TESTS RESULT OUT OF REFERENCE UNITS RANGE LAB GLUBL(LOINC 70-99 mg/dL ) High Glucose Meter 122 Result Comment: RN NOTIFIED Performed By: #### GLMET #### [facility] [address] [place], [place] [address] THERAPY NT Observed: 11/02/2017 Status: COMPLETED Source: [facility] 10:04 AM CLINIC OTHER CAMPUS REPOSITORY HNO ID: [id number] Author: Faye LiraOtr/Wilfred Covarrubias OT Service: Occupational Therapy Author Type: Occupational Therapist Type: Therapy (PT/OT/Speech/Resp) Filed: 11/02/2017 10:14 AM Note Text: Occupational Therapy Evaluation SERVICE DATE: 11/02/2017 SERVICE TIME: 914 to 953 ROOM: [id number] Recommended Discharge Disposition: Subacute/SNF Justification For Post Acute Needs: Cognition intact;Good premorbid functional status;Living the community premorbidly;Motivated;Willing to participate;Need for assistance may exceed support available OT Recommendations to Nursing: Assist of 1 person to bathroom for ADL?s;OOB for meals;Equipment to be used in room Equipment To Be Used In Room: Wheeled Walker OT 6 Clicks Score: 14 Precautions/Activity Restrictions: Fall Risk;Lines/Tubes/Drains Precaution/Activity Restriction Comments: On 3.5 L O2 Isolation Type: None ASSESSMENT: OT Evaluation Moderate Complexity: Occupational Profile - Extended review of patient's medical record completed including patient's physical, cognitive, and psycho-social history (please see current hospital course of evaluation). Occupational Performance - Pt presents with mod-max deficits in grooming, UE bathing/dressing, LE bathing/dressing, functional transfers, functional mobility, decreased safety awareness, decreased judgment/problem-solving, decreased activity tolerance (increased fatigue, weakness, SOB) Complexity in Clinical Decision Making - The extent of clinical reasoning was moderate, several treatment options present for the patient, need for modification during the evaluation was minimal/moderate, comorbidities affecting occupational performance: cardiomyopathy, HTN Tolerance Limited By Fatigue;Pain - Pt demo'd mod SOB after ADL activity / mobility Occupational Therapy Problem List: Safety Deficits;Impaired Self Care;Decreased Activity Tolerance;Decreased Strength;Functional Mobility Impairment Patient /Caregiver Goals: Care For Self Goals for Plan of Care: Grooming with: Contact Guard Assistance (sink side) Upper Body Dressing with: Minimal Assistance Lower Body Dressing with: Moderate Assistance Toilet Hygiene with: Minimal Assistance Toilet Transfer with: Contact Guard Assistance Tolerate (minutes of functional activity): 45 Functional Activity with: Contact Guard Assistance Additional Goal 1: Pt will demo good safety with ADLs and functional mobility Demonstrate Competence With Education with: Independent Transfer: sit-stand: SBA Rehab Potential: Excellent PLAN: Treatment Frequency (times per week): 3 (1-3) Current admission Treatment Interventions: Education;Self Care / Home Management;Energy Conservation Training;Strengthening;Functional Mobility Training;Pain Management Plan of Care developed with: Patient TREATMENT INTERVENTIONS: Therapy Diagnosis: Reduced mobility-other;Decreased activities of daily living (ADL);Muscle Weakness (generalized);Unsteadiness on feet Interventions Provided: Evaluation;Self Shelter Management (88508) $ Evaluation-Moderate (41773) Billed Units: 1 unit Self Shelter Management (68520) Treatment Minutes: 24 2 units Skilled Intervention(s) Provided fall guarding assistance during functional mobility up to bathroom due to unsteadiness, fatigue (pt seated in chair on arrival); provided mod verbal cues for proper hand and body placement using wheeled walker. Provided verbal cues to navigate bathroom safely and complete toilet transfer. Once patient seated on toilet, facilitated opportunity to complete UB/LB bathing and UB/LB dressing tasks; provided mod-max A to complete ADLs with min verbal cues for patient to assist as able to tolerate. Pt tolerated washing front of UB and face (required assistance with deny-care, LE's, and back); provided min cues for sequencing task. Provided fall guarding assistance while pt don/doff hygiene briefs while seated on toilet - provided mod verbal cues and mod A. Provided set up A/min A to don new gown. Once back in chair, provided opportunity to don/doff compression socks and wash LEs underneath. Per pt, she has not removed compression socks / bathed lower legs in a few months; provided max A to complete this task fully, pt currently limited by fatigue, SOB, and abdominal pain. Instructed patient to continue to complete her self-care tasks daily to increase / maintain UB strength / activity tolerance. Edu pt on fall prevention strategies, reinforcing the use of their call light / up with assistance for functional mobility; Pt left up in chair, call light in reach upon OT exit. Total Timed Code Treatment Minutes: 24 Total Treatment Time (minutes): 39 FUNCTIONAL G CODE: OT 6 Clicks Score: 14 (11/02/17914) Self Care Current Status (G8987): CK (11/02/17914) Self Care Goal Status (G8988): CJ (11/02/17914) Based on clinical assessment and the score on the 6 Clicks Functional Assessment Tool, the G code and corresponding severity modifiers are documented above. SUBJECTIVE: Current Hospital Course: Chart reviewed CHIEF COMPLAINT: Diaphragmatic hernia 77 year old female with history of chronic abdominal pain and overuse of antinausea meds who presents as a direct admit from [facility] for right-sided diaphragmatic hernia. Pt states that she began to have flu-like symptoms as well as nausea/emesis one week ago. PAST MEDICAL HISTORY Diagnosis Date - Acute, but ill-defined, cerebrovascular disease - Cardiomyopathy, nonischemic (HCC) - Essential hypertension, benign - GERD (gastroesophageal reflux disease) - Irritable bowel syndrome - Other and unspecified hyperlipidemia PAST SURGICAL HISTORY Procedure Laterality Date - APPENDECTOMY - LAPAROSCOPIC CHOLEYCYSTECTOMY Cholecystectomy, lap - REM LESION NEC,HND,SCAL 0.6-1.0CM 06/30/06 Exc. left neck francisco javier cyst - REMOVAL ADENOIDS,PRIMARY,<12 Y/O Adenoidectomy - REMOVAL OF TONSILS,<12 Y/O Tonsillectomy Patient Report: Pt sitting up in chair on arrival, agreeable to session. C/o pain in abdomen 5-6/10 after activity. Home Environment Patient Lives With: Self/Alone Assistance Available: time signal wirer (Son visits daily per patient) Entry To Home: Stairs;With Rail Number Of Stairs Into Home: 3 Number Of Stairs To Bed/Bath: 0 Equipment Owned: Cane;Rollator;Grab Bars-Shower;Grab Bars-Toilet;Commode-Raised Prior Functional Level: Required Assistance Assistance Required With: Cleaning;Laundry (prn) Prior Functional Level Comments: Indep with ADLs; however, pt states she only bathed 2x/month OBJECTIVE: Responsiveness: Alert Follows Commands: 1-step Commands Attention Deficits: Distractible Memory Deficits: Short Term Executive Function Deficits: Judgement;Problem Solving;Safety Awareness Safety Awareness Deficit: Minimal impairment Judgement Deficit: Minimal impairment Problem Solving Deficit: Minimal impairment CURRENT FUNCTIONAL STATUS: Current Activities of Daily Living Assist Level Feeding Set Up Grooming Moderate Assistance Bathing Upper Body Moderate Assistance Bathing Lower Body Maximal Assistance Dressing Upper Body Minimal Assistance Dressing Lower Body Maximal Assistance Toileting Moderate Assistance Functional Mobility Assist Level Rolling Supine to Sit Sit to Supine Scooting Sit to Stand Minimal Assistance Stand to Sit Minimal Assistance Bed to Chair Toilet/Commode Minimal Assistance Functional Mobility Minimal Assistance Wheeled Walker Hand Dominance: Right Range Of Motion: Within Functional Limits Strength: Within Functional Limits Except Location Strength Not WFL: Upper Extremity Left Upper Extremity Strength: 4/5 Right Upper Extremity Strength: 4/5 Balance: Dynamic Standing Dynamic Standing Balance: Minimal Assistance Activity Tolerance: Standing Activity;Sitting Activity Sitting Activity: Bathing seated on toilet in bathroom Sitting Activity Tolerance (in minutes): 25 Standing Activity: Functional mobility to bathroom; toilet transfer Standing Activity Tolerance (in minutes): 6 Please see discipline specific clinical documentation flowsheet for complete details for this therapy evaluation/treatment. SIGNATURE: ALEXANDER Guerrero/Brigitte PATIENT NAME: Vee Hyatt DATE: November 02, 2017 TIME: 10:04 AM PAGER: [phone] PROGRESS Observed: 11/02/2017 Status: COMPLETED Source: [facility] 9:11 AM [facility]INIC OTHER CAMPUS REPOSITORY O ID: [id number] Author: Diane De Los Santos Service: General Surgery Author Type: Physician Type: Progress Notes Filed: 11/02/2017 6:55 PM Note Text: General Surgery Progress Note SERVICE DATE: 11/02/2017 SUBJECTIVE: No acute events. Pain better. Tolerating PO, but has difficulty chewing when laying down. Tolerating diet DIET CARBOHYDRATE CONTROLLED OBJECTIVE: Vitals: Temp (24hrs), Av.8 ?C (98.3 ?F), Min:36.6 ?C (97.9 ?F), Max:37 ?C (98.6 ?F) BP 155/76 Pulse 85 Temp 37 ?C (98.6 ?F) (Oral) Resp 20 Ht 162.6 cm (5' 4) Wt 77.1 kg (170 lb) SpO2 97% BMI 29.18 kg/m2 O2 Therapy: Nasal Cannula IANDO: Date 11/01/17699 - 11/02/1759 11/02/17 07 - 11/03/17 0659 Shift 8253-2710 0665-4239 9319-4179 24 Hour Total 0587-1210 1194-1214 0797-5547 24 Hour Total I N T A K E PO 240 640 880 PO 240 640 880 IV 550 550 D5 NS 500 500 Potassium IVPB 50 50 Shift Total 013 506 9698 O U T P U T Urine 750 087 070 7236 Void (ml) 750 476 204 3455 Urine Incontinence/Not Saved 1 x 1 x 2 x # of BMs Number of BMs 1 x 1 x 2 x Shift Total 750 754 122 2587 Weight (kg) 77.1 77.1 77.1 77.1 77.1 77.1 77.1 77.1 MEDICATIONS Current Facility-Administered Medications: cloNIDine HCl 0.1 mg tab(s) (CATAPRES) 0.1 mg ORAL q 8 H potassium-sodium phosphates 1 Packet (NEUTRA-PHOS,PHOS-NAK) 1 Packet ORAL PC and HS pantoprazole DR 40 mg tab(s) (PROTONIX) 40 mg ORAL DAILY (6 AM) acetaminophen 650 mg tab(s) (TYLENOL) 650 mg ORAL q 6 H PRN oxyCODONE IR 5 mg tab(s) (ROXICODONE) 5 mg ORAL q 6 H PRN morphine 2-4 mg injection 2-4 mg INTRAVENOUS q 3 H PRN insulin lispro pen (rapid acting) (HumaLOG KWIKPEN) SUBCUTANEOUS w MEALS AND HS ipratropium-albuterol 3 mL nebulizer solution (DUONEB) 3 mL INHALATION q 4 H PRN LORazepam 1 mg tab(s) (ATIVAN) 1 mg ORAL BID enoxaparin 40 mg injection (LOVENOX) 40 mg SUBCUTANEOUS DAILY ondansetron (PF) 4 mg injection (ZOFRAN) 4 mg INTRAVENOUS q 4 H PRN losartan 100 mg tab(s) (COZAAR) 100 mg ORAL DAILY pramipexole 0.75 mg tab(s) (MIRAPEX) 0.75 mg ORAL AT BEDTIME minoxidil 2.5 mg tab(s) (LONITEN) 2.5 mg ORAL BID FLUoxetine 60 mg cap(s) (PROzac) 60 mg ORAL DAILY atorvastatin 20 mg tab(s) (LIPITOR) 20 mg ORAL AT BEDTIME dextrose 40 % 15 g (INSTA-GLUCOSE) 15 g ORAL PRN Or glucagon 1 mg injection (GLUCAGEN) 1 mg INTRAMUSCULAR PRN Or dextrose 50% in water 25 mL syringe 12.5 g INTRAVENOUS PRN Labs: Recent Labs 11/01/17 1420 11/01/17 0348 10/31/17 0840 10/31/17 0505 NA -- 140 -- 141 K 3.4* 3.2* -- 4.0 CHLOR -- 107 -- 109* CO2 -- 27 -- 31 BUN -- 5* -- 6* CREAT -- 0.62 -- 0.60 GLUC -- 113* -- 112* ANION -- 9 -- 5* CA -- 8.4* -- 8.4* MG -- 1.8 1.8 -- P -- 1.9* -- 1.7* WBC -- 9.01 -- 10.60* HB -- 11.9 -- 12.2 HCT -- 34.9 -- 36.1 PLT -- 207 -- 288 Exam: GENERAL: No distress, Alert NEURO: AANDOx3, CN II-XII grossly intact HEENT: normocephalic, atraumatic LUNGS: Unlabored breathing CARDIAC: Regular rate and rhythm as above ABDOMEN: Soft, non-tender, non-distended EXTREMITIES: LOPEZ, No deformities, No edema SKIN: Skin color, texture, turgor normal, No rashes or lesions ASSESSMENT AND PLAN: Active Hospital Problems Diagnosis Date Noted - Diaphragmatic hernia 10/26/2017 77 yo female with right-sided diaphragmatic hernia ?? - Reg diet - pain/nausea control - ISS - ambulation with assitance - Dispo planning - Up to chair SIGNATURE: Jere Bryson MD PATIENT NAME: Vee Winter [place] DATE: November 02, 2017 TIME: 9:11 AM Pager: [phone] ========= SURGERY STAFF: I have personally seen and evaluated this patient and participated in the lomeli components of this encounter. I discussed the management of this case with the resident and independently confirmed the findings and plan of care as documented either attached or in their separate note from today. Any corrections or additional notes are made as needed. Diane De Los Santos MD November 02, 2017 ========= CASE MANAGEM Observed: 11/02/2017 Status: COMPLETED Source: [facility] 8:33 AM [facility] REPOSITORY HNO ID: [id number] Author: Roro LiraRn) PRACHI Schwartz Service: Care Management Author Type: Registered Nurse Type: Care Mgt Progress Note Filed: 11/02/2017 8:34 AM Note Text: CARE MANAGEMENT PROGRESS NOTE SERVICE DATE: 11/02/2017 SERVICE TIME: 832 LOS: 7 days Needs Prior to Discharge: Insurance Authorization Awaiting precert for [facility]. SIGNATURE: Roro Schwartz RN PATIENT NAME: Vee Hyatt DATE: November 02, 2017 TIME: 8:33 AM PAGER/CONTACT #: [phone] GLUCOSE METER Collected: 11/02/2017 Status: F Source: [facility] 6:47 AM HEALTH SYSTEM REPOSITORY TYPE CODE TESTS RESULT OUT OF REFERENCE UNITS RANGE LAB GLUBL(LOINC 70-99 mg/dL ) High Glucose Meter 109 Result Comment: RN NOTIFIED Performed By: #### GLMET #### [place] [address] NURSING PROG Observed: 11/02/2017 Status: COMPLETED Source: [facility] 1:45 AM [facility] REPOSITORY HNO ID: [id number] Author: Natalie LiraRn) PRACHI Pope Service: Nursing Author Type: Registered Nurse Type: Nursing Progress Note Filed: 11/02/2017 2:48 AM Note Text: Nursing Progress Note Patient Name: Vee Hyatt Patient Location: [place] [id number]-* Event(s) / Intervention Note: The patient complained of the following problems: shortness of breath. The time of the event occurred at: 0145. The following intervention(s) were initiated: auscultation of lungs, measurement of pulse oximetry, and requested a breathing treatment from respiratory therapy. After the initiated interventions, the following observation(s) were made: nothing further noted. Will continue to observe and check with patient.. This note was completed by: Natalie Pope RN Respiratory therapist completed a treatment. Pt reports decrease in SOB, will continue to monitor. GLUCOSE METER Collected: 11/01/2017 Status: F Source: [facility] 8:45 PM HEALTH SYSTEM REPOSITORY TYPE CODE TESTS RESULT OUT OF REFERENCE UNITS RANGE LAB GLUBL(LOINC 70-99 mg/dL ) High Glucose Meter 117 Result Comment: RN NOTIFIED Performed By: #### GLMET #### [place] [address] GLUCOSE METER Collected: 11/01/2017 Status: F Source: [facility] 5:10 PM HEALTH SYSTEM REPOSITORY TYPE CODE TESTS RESULT OUT OF REFERENCE UNITS RANGE LAB GLUBL(LOINC 70-99 mg/dL ) High Glucose Meter 149 Result Comment: RN NOTIFIED Performed By: #### GLMET #### [place] [address] POTASSIUM BLOOD Collected: 11/01/2017 Status: F Source: [facility] 2:20 PM HEALTH SYSTEM REPOSITORY TYPE CODE TESTS RESULT OUT OF REFERENCE UNITS RANGE LAB K(LOINC) 3.5-5.1 mEq/L Low Potassium Blood 3.4 Performed By: #### K #### [place] [address] CASE MANAGEM Observed: 11/01/2017 Status: COMPLETED Source: [facility] 12:03 PM CLINIC OTHER CAMPUS REPOSITORY HNO ID: [id number] Author: Roro (Rn) PRACHI Schwartz Service: Care Management Author Type: Registered Nurse Type: Care Mgt Progress Note Filed: 11/01/2017 12:05 PM Note Text: CARE MANAGEMENT PROGRESS NOTE SERVICE DATE: 11/01/2017 SERVICE TIME: 1203 LOS: 6 days Needs Prior to Discharge: Insurance Authorization Spoke with [facility] Admissions--patient accepted and precert started. Await precert. SIGNATURE: Roro Schwartz RN PATIENT NAME: Vee Hyatt DATE: November 01, 2017 TIME: 12:03 PM PAGER/CONTACT #: [phone] GLUCOSE METER Collected: 11/01/2017 Status: F Source: [facility] 11:09 AM HEALTH SYSTEM REPOSITORY TYPE CODE TESTS RESULT OUT OF REFERENCE UNITS RANGE LAB GLUBL(LOINC 70-99 mg/dL ) High Glucose Meter 112 Result Comment: RN NOTIFIED Performed By: #### GLMET #### [place] [address] CASE MANAGEM Observed: 11/01/2017 Status: COMPLETED Source: [facility] 8:30 AM [facility] OTHER CAMPUS REPOSITORY HNO ID: [id number] Author: Roro (Rn) PRACHI Schwartz Service: Care Management Author Type: Registered Nurse Type: Care Mgt Progress Note Filed: 11/01/2017 8:31 AM Note Text: CARE MANAGEMENT PROGRESS NOTE SERVICE DATE: 11/01/2017 SERVICE TIME: 829 LOS: 6 days Needs Prior to Discharge: Accepting Facility;Insurance Authorization Awaiting acceptance to [facility]. SIGNATURE: Roro Schwartz RN PATIENT NAME: Vee Hyatt DATE: November 01, 2017 TIME: 8:30 AM PAGER/CONTACT #: [phone] PROGRESS Observed: 11/01/2017 Status: COMPLETED Source: [facility] 8:14 AM [facility] OTHER CAMPUS REPOSITORY HNO ID: [id number] Author: Diane De Los Santos Service: General Surgery Author Type: Physician Type: Progress Notes Filed: 11/02/2017 6:55 PM Note Text: General Surgery Progress Note SERVICE DATE: 11/01/2017 SUBJECTIVE: Pain a little worse today. Some nausea, still passing BMs and flatus. Tolerating diet DIET CARBOHYDRATE CONTROLLED OBJECTIVE: Vitals: Temp (24hrs), Av.8 ?C (98.2 ?F), Min:36.2 ?C (97.2 ?F), Max:37.6 ?C (99.7 ?F) BP 151/73 Pulse 91 Temp 36.2 ?C (97.2 ?F) (Temporal Artery) Resp 18 Ht 162.6 cm (5' 4) Wt 77.1 kg (170 lb) SpO2 94% BMI 29.18 kg/m2 O2 Therapy: Nasal Cannula IANDO: Date 10/31/17699 - 11/01/17 0659 11/01/17699 - 11/02/17 0659 Shift 2461-8371 4617-9881 9251-2994 24 Hour Total 8500-2130 5777-3610 8056-6117 24 Hour Total I N T A K E PO 300 300 PO 300 300 IV 914 914 D5 NS 914 914 Shift Total 854 067 3424 O U T P U T Urine 300 690 882 7943 Void (ml) 300 781 413 6265 Urine Incontinence/Not Saved 1 x 1 x # of BMs Number of BMs 2 x 2 x 1 x 5 x Shift Total 300 319 392 3286 Weight (kg) 77.1 77.1 77.1 77.1 77.1 77.1 77.1 77.1 MEDICATIONS Current Facility-Administered Medications: cloNIDine HCl 0.1 mg tab(s) (CATAPRES) 0.1 mg ORAL q 8 H potassium-sodium phosphates 1 Packet (NEUTRA-PHOS,PHOS-NAK) 1 Packet ORAL PC and HS potassium chloride iv piggyback 20 mEq in sterile water 100 mL 20 mEq INTRAVENOUS ONCE pantoprazole DR 40 mg tab(s) (PROTONIX) 40 mg ORAL DAILY (6 AM) acetaminophen 650 mg tab(s) (TYLENOL) 650 mg ORAL q 6 H PRN oxyCODONE IR 5 mg tab(s) (ROXICODONE) 5 mg ORAL q 6 H PRN morphine 2-4 mg injection 2-4 mg INTRAVENOUS q 3 H PRN insulin lispro pen (rapid acting) (HumaLOG KWIKPEN) SUBCUTANEOUS w MEALS AND HS ipratropium-albuterol 3 mL nebulizer solution (DUONEB) 3 mL INHALATION q 4 H PRN LORazepam 1 mg tab(s) (ATIVAN) 1 mg ORAL BID enoxaparin 40 mg injection (LOVENOX) 40 mg SUBCUTANEOUS DAILY ondansetron (PF) 4 mg injection (ZOFRAN) 4 mg INTRAVENOUS q 4 H PRN losartan 100 mg tab(s) (COZAAR) 100 mg ORAL DAILY pramipexole 0.75 mg tab(s) (MIRAPEX) 0.75 mg ORAL AT BEDTIME minoxidil 2.5 mg tab(s) (LONITEN) 2.5 mg ORAL BID FLUoxetine 60 mg cap(s) (PROzac) 60 mg ORAL DAILY atorvastatin 20 mg tab(s) (LIPITOR) 20 mg ORAL AT BEDTIME dextrose 40 % 15 g (INSTA-GLUCOSE) 15 g ORAL PRN Or glucagon 1 mg injection (GLUCAGEN) 1 mg INTRAMUSCULAR PRN Or dextrose 50% in water 25 mL syringe 12.5 g INTRAVENOUS PRN Labs: Recent Labs 11/01/17 0348 10/31/17 0840 10/31/17 0505 NA 140 -- 141 K 3.2* -- 4.0 CHLOR 107 -- 109* CO2 27 -- 31 BUN 5* -- 6* CREAT 0.62 -- 0.60 GLUC 113* -- 112* ANION 9 -- 5* CA 8.4* -- 8.4* MG 1.8 1.8 -- P 1.9* -- 1.7* WBC 9.01 -- 10.60* HB 11.9 -- 12.2 HCT 34.9 -- 36.1 PLT 207 -- 288 Exam: GENERAL: No distress, Alert NEURO: AANDOx3, CN II-XII grossly intact HEENT: normocephalic, atraumatic LUNGS: Unlabored breathing CARDIAC: Regular rate and rhythm as above ABDOMEN: Soft, mild RUQ tenderness, nondistended EXTREMITIES: LOPEZ, No deformities, No edema SKIN: Skin color, texture, turgor normal, No rashes or lesions ASSESSMENT AND PLAN: Active Hospital Problems Diagnosis Date Noted - Diaphragmatic hernia 10/26/2017 77 yo female with right-sided diaphragmatic hernia ?? - Reg diet - pain/nausea control - Potassium replaced, will recheck in afternoon - ISS - ambulation with assitance - Dispo planning SIGNATURE: Jere Bryson MD PATIENT NAME: Vee Hyatt DATE: November 01, 2017 TIME: 8:14 AM Pager: [phone] ========= SURGERY STAFF: I have personally seen and evaluated this patient and participated in the lomeli components of this encounter. I discussed the management of this case with the resident and independently confirmed the findings and plan of care as documented either attached or in their separate note from today. Any corrections or additional notes are made as needed. Diane De Los Santos MD November 02, 2017 ========= CHEST 1 VIEW Observed: 11/01/2017 Status: F Source: [facility] 6:40 AM HEALTH SYSTEM REPOSITORY Performed at [facility] APPROVED BY: Damian Kimble MD EXAM TITLE: CHEST 1 VIEW DATE: 11/01/2017 06:22 INDICATION: Shortness of breath. COMPARISON: None. Portable frontal view of the chest shows bilateral pleural effusions moderate size on right side and small moderate on left side. Diminished aeration at both lung bases. The upper lungs are clear. The heart size is difficult to assess given the adjacent pleural parenchymal changes. IMPRESSION: Bilateral pleural effusions with presumed atelectasis at both lung bases. GLUCOSE METER Collected: 11/01/2017 Status: F Source: [facility] 6:19 AM HEALTH SYSTEM REPOSITORY TYPE CODE TESTS RESULT OUT OF REFERENCE UNITS RANGE LAB GLUBL(LOINC 70-99 mg/dL ) High Glucose Meter 113 Result Comment: RN NOTIFIED Performed By: #### GLMET #### [facility] [address] [place], [place] [address] NURSING PROG Observed: 11/01/2017 Status: COMPLETED Source: [facility] 5:43 AM CLINIC OTHER CAMPUS REPOSITORY HNO ID: [id number] Author: Bridgette Ngo) PRACHI Green Service: Nursing Author Type: Registered Nurse Type: Nursing Progress Note Filed: 11/01/2017 5:43 AM Note Text: Nursing Progress Note Patient Name: Vee Hyatt Patient Location: [place] [address]/[id number]-* phos 1.[address] Antunez notified. No new orders received. Will continue to monitor This note was completed by: Bridgette Green RN NURSING PROG Observed: 11/01/2017 Status: COMPLETED Source: [facility] 3:57 AM CLINIC OTHER CAMPUS REPOSITORY HNO ID: [id number] Author: Bridgette (Rn) PRACHI Green Service: Nursing Author Type: Registered Nurse Type: Nursing Progress Note Filed: 11/01/2017 4:31 AM Note Text: bp 175/74. All other vital signs stable. Pt c/o pain 05/03 and 5mg oxy IR given. Dr. Antunez paged. No reply yet. RN will cont. To monitor At 0424 Dr. Antunez paged again [phone] New orders received for clonidine 0.1mg q8. Will continue to monitor PHOSPHORUS BLOOD Collected: 11/01/2017 Status: F Source: [facility] 3:48 AM HEALTH SYSTEM REPOSITORY TYPE CODE TESTS RESULT OUT OF REFERENCE UNITS RANGE LAB PHOS(LOINC 2.5-4.9 mg/dL ) Low alert Phosphorus Blood 1.9 Performed By: #### PHOS #### [facility] [address] [place] [address] BASIC PANEL Collected: 11/01/2017 Status: F Source: [facility] 3:48 AM HEALTH SYSTEM REPOSITORY TYPE CODE TESTS RESULT OUT OF REFERENCE UNITS RANGE LAB NA(LOINC) 136-145 mEq/L Sodium Blood 140 LAB K(LOINC) 3.5-5.1 mEq/L Low Potassium Blood 3.2 LAB CL(LOINC) 98-107 mEq/L Chloride Blood 107 LAB CO2(LOINC) 21-32 mEq/L CO2 Blood 27 LAB GLU(LOINC) 70-99 mg/dL Glucose High Blood 113 LAB BUN(LOINC) 7-18 mg/dL Low BUN Blood 5 LAB CREA(LOINC 0.51-0.95 mg/dL ) Creatinine Blood 0.62 LAB CA(LOINC) 8.5-10.1 mg/dL Low Calcium Blood 8.4 LAB ANGAP(LOIN 8-16 C) Anion Gap 9 Performed By: #### P8 #### [facility] [address] [place] [address] MDRD GFR Collected: 11/01/2017 Status: F Source: [facility] 3:48 AM HEALTH SYSTEM REPOSITORY TYPE CODE TESTS RESULT OUT OF RANGE REFERENCE UNITS LAB GFRFN(LOINC >60mL/min/1.73m ) 2 eGFR >60 Result Comment: If the patient is , multiply the result by 1.210. Performed By: #### GFR #### [facility] [address] [place] [address] MAGNESIUM BLOOD Collected: 11/01/2017 Status: F Source: [facility] 3:48 AM HEALTH SYSTEM REPOSITORY TYPE CODE TESTS RESULT OUT OF REFERENCE UNITS RANGE LAB MAG(LOINC) 1.6-2.6 mg/dL Magnesium Blood 1.8 Performed By: #### MAG #### [facility] [address] [place] [address] HEMOGRAM/DIFF Collected: 11/01/2017 Status: F Source: [facility] 3:48 AM HEALTH SYSTEM REPOSITORY TYPE CODE TESTS RESULT OUT OF REFERENCE UNITS RANGE LAB WBC(LOINC) 3.98-10.04 thou/cmm WBC 9.01 LAB RBC(LOINC) 3.93-5.22 mil/cmm RBC 3.93 LAB HGB(LOINC) 11.2-15.7 g/dL Hgb 11.9 LAB HCT(LOINC) 34.1-44.9 % Hct 34.9 LAB MCV(LOINC) 79.4-94.8 fl MCV 88.8 LAB MCH(LOINC) 25.6-32.2 pg MCH 30.3 LAB MCHC(LOINC) 31.6-34.8 % MCHC 34.1 LAB RDW(LOINC) 11.7-14.4 % RDW 12.9 LAB RDWSD(LOINC 36.4-46.3 fl ) RDW SD 41.9 LAB PLT(LOINC) 182-369 thou/cmm Platelet 207 Result Comment: Smear scanned tech agrees with platelet count LAB MPV(LOINC) 9.4-12.3 fl MPV 9.6 LAB SEG(LOINC) % Seg Neutrophil 78.1 LAB IGRE(LOINC) % Immature Grans 0.20 LAB LYMPH(LOINC) % Lymphocyte 15.9 LAB MNO(LOINC) % Monocyte 4.4 LAB EOSIN(LOINC) % Eosinophil 0.8 LAB BASO(LOINC) % Basophil 0.6 LAB SEGN(LOINC) 1.56-6.13 thou/cmm Abs. Neut High 7.04 LAB IGAB(LOINC) 0.00-0.05 thou/cmm Abs Immature Grans 0.02 LAB LYMN(LOINC) 1.18-3.74 thou/cmm Abs. Lymph 1.43 LAB MONON(LOINC) 0.27-0.70 thou/cmm Abs. [place] 0.40 LAB EOSN(LOINC) 0.00-0.31 thou/cmm Abs. Eosin 0.07 LAB BASON(LOINC) 0.01-0.08 thou/cmm Abs. Baso 0.05 Performed By: #### CBCD1 #### [place] [address] NURSING PROG Observed: 10/31/2017 Status: COMPLETED Source: [facility] 9:58 PM CLINIC OTHER CAMPUS REPOSITORY HNO ID: [id number] Author: Bridgette (Rn) PRACHI Green Service: Nursing Author Type: Registered Nurse Type: Nursing Progress Note Filed: 10/31/2017 10:01 PM Note Text: Pt family called RN to room stating that pt is having trouble breathing. Lungs are diminished, spb elevated at 179. Respiratory paged to request duoneb. Dr. Antunez notified and states that he will order chest xray. RN will continue to monitor. GLUCOSE METER Collected: 10/31/2017 Status: F Source: [facility] 9:43 PM HEALTH SYSTEM REPOSITORY TYPE CODE TESTS RESULT OUT OF REFERENCE UNITS RANGE LAB GLUBL(LOINC 70-99 mg/dL ) High Glucose Meter 110 Result Comment: RN NOTIFIED Performed By: #### GLMET #### [facility] [address] [place], [place] [address] GLUCOSE METER Collected: 10/31/2017 Status: F Source: [facility] 5:06 PM HEALTH SYSTEM REPOSITORY TYPE CODE TESTS RESULT OUT OF REFERENCE UNITS RANGE LAB GLUBL(LOINC 70-99 mg/dL ) High Glucose Meter 108 Result Comment: RN NOTIFIED Performed By: #### GLMET #### [place] [address] CASE MANAGEM Observed: 10/31/2017 Status: COMPLETED Source: [facility] 3:08 PM [facility] REPOSITORY HNO ID: [id number] Author: Toribio LiraRn) PRACHI Tamayo Service: Care Management Author Type: Registered Nurse Type: Care Mgt Progress Note Filed: 10/31/2017 3:14 PM Note Text: CARE MANAGEMENT PROGRESS NOTE SERVICE DATE: 10/31/2017 SERVICE TIME: 1508 LOS: 5 days Referral made to [facility] at pt and son request. Pt will need authorization prior to discharge. SIGNATURE: Toribio Tamayo RN PATIENT NAME: Vee Hyatt DATE: October 31, 2017 TIME: 3:08 PM PAGER/CONTACT #: [phone] CASE MANAGEM Observed: 10/31/2017 Status: COMPLETED Source: [facility] 3:06 PM [facility] REPOSITORY HNO ID: [id number] Author: Mandy LiraRn) PRACHI Kidd Service: Care Management Author Type: Registered Nurse Type: Care Mgt Progress Note Filed: 10/31/2017 3:08 PM Note Text: CARE MANAGEMENT PROGRESS NOTE SERVICE DATE: 10/31/2017 SERVICE TIME: 3:07 PM LOS: 5 days Call to adrian Motta at [phone]. For discharge the plan is [facility] transitional care unit. Placed referral. SIGNATURE: Mandy Kidd RN PATIENT NAME: Vee Pedersene DATE: October 31, 2017 TIME: 3:06 PM PAGER/CONTACT #: [phone] THERAPY NT Observed: 10/31/2017 Status: COMPLETED Source: [facility] 2:29 PM [facility] REPOSITORY HNO ID: [id number] Author: Xiomy LiraOtr/Wilfred Moarn Service: Occupational Therapy Author Type: Occupational Therapist Type: Therapy (PT/OT/Speech/Resp) Filed: 10/31/2017 2:30 PM Note Text: OCCUPATIONAL THERAPY MISSED VISIT SERVICE DATE: 10/31/2017 SERVICE TIME: 1428 to 1428 ROOM: [place] [address] Attempted Evaluation. Patient not seen due to Declined. Patient declines therapy at this time due to fatigue after getting back from bedside commode, will continue to follow as able and appropriate. SIGNATURE: Xiomy Moran OTR/L PATIENT NAME: Vee Hyatt DATE: October 31, 2017 TIME: 2:29 PM PAGER/CONTACT #: [phone] GLUCOSE METER Collected: 10/31/2017 Status: F Source: [facility] 11:26 AM HEALTH SYSTEM REPOSITORY TYPE CODE TESTS RESULT OUT OF REFERENCE UNITS RANGE LAB GLUBL(LOINC 70-99 mg/dL ) High Glucose Meter 121 Result Comment: RN NOTIFIED Performed By: #### GLMET #### [place] [address] THERAPY NT Observed: 10/31/2017 Status: COMPLETED Source: [facility] 10:56 AM CLINIC OTHER CAMPUS REPOSITORY HNO ID: [id number] Author: Danielle (Pt) LEATHA Bojorquez Service: Physical Therapy Author Type: Physical Therapist Type: Therapy (PT/OT/Speech/Resp) Filed: 10/31/2017 4:27 PM Note Text: Physical Therapy Evaluation SERVICE DATE: 10/31/2017 SERVICE TIME: 1010 to 1045 ROOM: [place] [address] Present on Admission: - Diaphragmatic hernia Recommended Discharge Disposition: Subacute/SNF Justification For Post Acute Needs: Need for assistance may exceed support available;May not tolerate higher intensity programing;Willing to participate;Living the community premorbidly;Good premorbid functional status Recommended Discharge Equipment: No equipment needs anticipated PT Recommendations to Nursing: Ambulate with device;To bathroom;With assist of 1 person;OOB for meals Ambulation Device: Wheeled Walker PT 6 Clicks Score: 17 Precautions/Activity Restrictions: Fall Risk;Lines/Tubes/Drains Precaution/Activity Restriction Comments: IV and O2 Isolation Type: None ASSESSMENT : Patient presents with personal factors, comorbidities and results of the PT examination that require moderate complexity decision making. The patient requires skilled physical therapy to address multiple PT problems in order for the patient to return to a baseline functional level. Requires skilled PT for Improvement of functional mobility, safety, endurance, strength, and ambulation. Patient reported feeling nauseous and became dizzy with upright position. Patient presents lethargic with nonsensical mumbling throughout session. However, patient is able to answer questions correctly. Patient requires physical assist to perform functional mobility and requires skilled PT to return to prior level of function. Tolerance Limited By Fatigue;Physiologic Response (Nausea/ dizziness) Physical Therapy Problem List: Functional Mobility Impairment;Balance Impaired;Decreased Activity Tolerance Patient /Caregiver Goals: Go Home Goals for Plan of Care: Rolling with: Contact Guard Assistance Transfer supine to/from sit with: Contact Guard Assistance Transfer sit to/from stand with: Contact Guard Assistance Ambulate with: Contact Guard Assistance Distance: 20 Device: Wheeled Walker Ambulate up and down steps with: Minimal Assistance Number of steps: 3 Device: Rail Rehab Potential: Good PLAN: Treatment Frequency (times per week): 5 (1-5) Current admission Treatment Interventions: Education;Strengthening;Functional Mobility Training;Balance Training Plan of Care developed with: Patient TREATMENT INTERVENTIONS: Therapy Diagnosis: Unsteadiness on feet;Abnormalities of gait and mobility-other;Decreased activities of daily living (ADL) Interventions Provided: Evaluation;Therapeutic Activity (53840);Gait Training (47939) $ Evaluation-Moderate (33277) Billed Units: 1 unit Therapeutic Activity (11706) Treatment Minutes: 10 1 unit Skilled Intervention(s): Instruction and performance in supine to sit pushing with upper extremities to sit up, sit to supine using safe, effective technique, sit to stand technique with proper hand placement and body positioning at edge of bed/chair, and stand to sit technique with lower extremities touching chair/bed and reaching back for surface. Education provided for EOB safety, self check for dizziness/lightheadedness and UE assist for sit balance. Patient instructed in and performed anti-embolic exercises, ankle pumps and long arc quad to help with dizziness when sitting edge of bed. Education regarding importance of OOB to chair - in a sitting position (not reclined), ambulate in room to regulate BP, improve lung function and overall blood flow, and to aid with other bodily functions. Education and discussion regarding findings relevant to patient's functional mobility needs and continued PT at residential facility to improve independence. Gait Training (94156) Treatment Minutes: 2 0 units Skilled Intervention(s): Instruction in correct FWW usage including pacing, sequencing, gait pattern and proper foot/body placement inside frame of FWW for appropriate safety with AD to normalize gait sequencing to improve safety awareness and decrease fall risk with ambulation. Total Timed Code Treatment Minutes: 12 Total Treatment Time (minutes): 35 FUNCTIONAL G CODE: PT 6 Clicks Score: 17 (10/31/17 1010) Mobility: Walking and Moving Around Current Status (G8978): CK (10/31/17 1010) Mobility: Walking and Moving Around Goal Status (G8979): CJ (10/31/17 1010) Based on clinical assessment and the score on the 6 Clicks Functional Assessment Tool, the G code and corresponding severity modifiers are documented above. SUBJECTIVE: Current Hospital Course: Chart reviewed. Patient is a 77 yo female who presented with diaphragmatic hernia. Present on Admission: - Diaphragmatic hernia PAST MEDICAL HISTORY - Acute, but ill-defined, cerebrovascular disease - Cardiomyopathy, nonischemic (HCC) - Essential hypertension, benign - GERD (gastroesophageal reflux disease) - Irritable bowel syndrome - Other and unspecified hyperlipidemia PAST SURGICAL HISTORY - APPENDECTOMY - LAPAROSCOPIC CHOLEYCYSTECTOMY Cholecystectomy, lap - REM LESION NEC,HND,SCAL 0.6-1.0CM 06/30/06 Exc. left neck francisco javier cyst - REMOVAL ADENOIDS,PRIMARY,<12 Y/O Adenoidectomy - REMOVAL OF TONSILS,<12 Y/O Tonsillectomy Patient Report: Identification verified x2, patient agreeable to therapy. Home Environment Patient Lives With: Self/Alone Assistance Available: time signal wirer (Son visits daily per patient) Entry To Home: Stairs;With Rail Number Of Stairs Into Home: 3 Number Of Stairs To Bed/Bath: 0 Equipment Owned: Cane;Rollator;Grab Bars-Shower;Grab Bars-Toilet;Commode-Raised Prior Functional Level: Required Assistance Assistance Required With: Medication Management Prior Functional Level Comments: Independent functional mobility with occasional use of cane OBJECTIVE: CURRENT FUNCTIONAL STATUS: Current Functional Mobility Assist Level Additional Information Rolling Minimal Assistance (Use of bedrail) Supine to Sit Minimal Assistance (Raised HOB and verbal instructions) Sit to Supine Minimal Assistance (Raised HOB and verbal instructions) Scooting Maximal Assistance Sit to Stand Minimal Assistance Stand to Sit Minimal Assistance Bed to Chair Contact Guard Assistance Toilet/Commode Minimal Assistance Gait Minimal Assistance (Required assist for lines and obstacles) Gait Device: Wheeled Walker Gait Distance (feet): 10 Stairs Curb Step Car Transfer General Gait Deviations: Janene decreased;Wide base of support;Difficulty changing direction/turning;Non-functional gait speed Balance: Dynamic Sitting;Dynamic Standing Dynamic Sitting Balance: Contact Guard Assistance (Fair) Dynamic Standing Balance: Minimal Assistance (Fair-) Range Of Motion: Within Functional Limits (BLE) Strength: Within Functional Limits (BLE 4/5) Patient in bed with call light and phone in reach on bedside table. Instructed to use call light and wait for assist to get out of bed. Please see discipline specific clinical documentation flowsheet for complete details for this therapy evaluation/treatment. SIGNATURE: ADITHYA Abraham PATIENT NAME: Vee Hyatt DATE: October 31, 2017 TIME: 10:56 AM PAGER/CONTACT #: [phone] I reviewed and addended with the documentation corresponding to this therapy visit. Evaluation and/or treatment directly supervised by licensed Physical Therapist. SIGNATURE: Danielle Bojorquez PT DATE: October 31, 2017 TIME: 4:27 PM CASE MANAGEM Observed: 10/31/2017 Status: COMPLETED Source: [facility] 9:33 AM CLINIC OTHER CAMPUS REPOSITORY O ID: [id number] Author: Roro (Rn) PRACHI Schwartz Service: Care Management Author Type: Registered Nurse Type: Care Mgt Progress Note Filed: 10/31/2017 9:34 AM Note Text: CARE MANAGEMENT PROGRESS NOTE SERVICE DATE: 10/31/2017 SERVICE TIME: 932 LOS: 5 days Needs Prior to Discharge: OT/PT Evaluation Awaiting PT/OT evaluation and recommendations for discharge planning needs. SIGNATURE: Roro Schwartz RN PATIENT NAME: Vee Hyatt DATE: October 31, 2017 TIME: 9:33 AM PAGER/CONTACT #: [phone] MAGNESIUM BLOOD Collected: 10/31/2017 Status: F Source: [facility] 8:40 AM HEALTH SYSTEM REPOSITORY TYPE CODE TESTS RESULT OUT OF REFERENCE UNITS RANGE LAB MAG(LOINC) 1.6-2.6 mg/dL Magnesium Blood 1.8 Performed By: #### MAG #### [place] [address] GLUCOSE METER Collected: 10/31/2017 Status: F Source: [facility] 6:35 AM HEALTH SYSTEM REPOSITORY TYPE CODE TESTS RESULT OUT OF REFERENCE UNITS RANGE LAB GLUBL(LOINC 70-99 mg/dL ) High Glucose Meter 118 Result Comment: RN NOTIFIED Performed By: #### GLMET #### [facility] [address] [id number] PROGRESS Observed: 10/31/2017 Status: COMPLETED Source: [facility] 6:14 AM CLINIC OTHER CAMPUS REPOSITORY HNO ID: [id number] Author: Jere Bryson Service: General Surgery Author Type: Resident Type: Progress Notes Filed: 10/31/2017 12:13 PM Note Text: Attestation signed by Diane De Los Santos at 10/31/2017 4:12 PM Patient reports abdominal pain has improved from admission and is now at her baseline. No nausea or vomiting. Appetite a little better today. ?? Abd soft NT ND WBC stable at 10 CT reviewed, no evidence of obstruction ?? Appreciate consult by Dr. Murillo. He recommends no acute intervention given her recent flu and lack of obstructive symptoms. He will see her as an outpatient for further evaluation and after medical clearance. ?? Continue general diet. KVO IVF PT/OT Will likely need SNF on dc, son requests [facility]. Plan to follow up with Dr. Bar, who previously worked up this hernia. I left a message for Dr. Bar to discuss the patient's hospital course. Dc when facility is set up ? Diane De Los Santos MD October 31, 2017 General Surgery Progress Note SERVICE DATE: 10/31/2017 SUBJECTIVE: No acute events. Tolerating PO but poor appetite. Pain improved. Tolerating diet DIET CARBOHYDRATE CONTROLLED OBJECTIVE: Vitals: Temp (24hrs), Av.7 ?C (98 ?F), Min:36.1 ?C (97 ?F), Max:37.4 ?C (99.3 ?F) BP 158/85 Pulse 90 Temp 36.4 ?C (97.5 ?F) (Oral) Resp 18 Ht 162.6 cm (5' 4) Wt 77.1 kg (170 lb) SpO2 95% BMI 29.18 kg/m2 O2 Therapy: Nasal Cannula IANDO: Date 10/30/17699 - 10/31/17 0659 10/31/17699 - 11/01/17 0659 Shift 5403-2098 3812-1700 5875-7233 24 Hour Total 5685-8850 4689-5442 5945-4439 24 Hour Total I N T A K E PO 240 150 390 PO 240 150 390 IV 876 293 6488 D5 NS 860 281 8946 Shift Total 873 206 9902 1437 O U T P U T Urine 150 250 525 925 Void (ml) 150 250 525 925 Shift Total 150 250 525 925 Weight (kg) 77.1 77.1 77.1 77.1 77.1 77.1 77.1 77.1 MEDICATIONS Current Facility-Administered Medications: acetaminophen 650 mg tab(s) (TYLENOL) 650 mg ORAL q 6 H PRN oxyCODONE IR 5 mg tab(s) (ROXICODONE) 5 mg ORAL q 6 H PRN morphine 2-4 mg injection 2-4 mg INTRAVENOUS q 3 H PRN insulin lispro pen (rapid acting) (HumaLOG KWIKPEN) SUBCUTANEOUS w MEALS AND HS ipratropium-albuterol 3 mL nebulizer solution (DUONEB) 3 mL INHALATION q 4 H PRN LORazepam 1 mg tab(s) (ATIVAN) 1 mg ORAL BID dextrose 5% in NaCl 0.9% iv infusion 50 mL/hr INTRAVENOUS CONTINUOUS pantoprazole 40 mg injection (PROTONIX) 40 mg INTRAVENOUS DAILY (6 AM) enoxaparin 40 mg injection (LOVENOX) 40 mg SUBCUTANEOUS DAILY ondansetron (PF) 4 mg injection (ZOFRAN) 4 mg INTRAVENOUS q 4 H PRN losartan 100 mg tab(s) (COZAAR) 100 mg ORAL DAILY pramipexole 0.75 mg tab(s) (MIRAPEX) 0.75 mg ORAL AT BEDTIME minoxidil 2.5 mg tab(s) (LONITEN) 2.5 mg ORAL BID FLUoxetine 60 mg cap(s) (PROzac) 60 mg ORAL DAILY atorvastatin 20 mg tab(s) (LIPITOR) 20 mg ORAL AT BEDTIME dextrose 40 % 15 g (INSTA-GLUCOSE) 15 g ORAL PRN Or glucagon 1 mg injection (GLUCAGEN) 1 mg INTRAMUSCULAR PRN Or dextrose 50% in water 25 mL syringe 12.5 g INTRAVENOUS PRN Labs: Recent Labs 10/31/17 0505 10/30/17 0420 10/29/17 0335 NA -- 142 140 K -- 3.6 3.7 CHLOR -- 114* 110* CO2 -- 26 28 BUN -- 7 9 CREAT -- 0.64 0.70 GLUC -- 115* 118* ANION -- 6* 6* CA -- 8.2* 8.4* MG -- 2.0 2.2 P -- 2.2* 2.6 WBC 10.60* 10.18* 14.05* HB 12.2 11.0* 12.1 HCT 36.1 34.5 38.7 PLT 288 251 299 Exam: GENERAL: No distress, Alert NEURO: AANDOx3, CN II-XII grossly intact HEENT: normocephalic, atraumatic LUNGS: Unlabored breathing CARDIAC: Regular rate and rhythm as above ABDOMEN: Soft, mild tenderness RUQ, nondistended EXTREMITIES: LOPEZ, No deformities, No edema SKIN: Skin color, texture, turgor normal, No rashes or lesions ASSESSMENT AND PLAN: Active Hospital Problems Diagnosis Date Noted - Diaphragmatic hernia 10/26/2017 77 yo female with right-sided diaphragmatic hernia ?? 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 patient with right arm gross infiltrate and on left with extremely poor venous access staff nurse notified HEMOGRAM/DIFF Collected: 10/31/2017 Status: F Source: [facility] 5:05 AM HEALTH SYSTEM REPOSITORY TYPE CODE TESTS RESULT OUT OF REFERENCE UNITS RANGE LAB WBC(LOINC) 3.98-10.04 thou/cmm WBC High 10.60 LAB RBC(LOINC) 3.93-5.22 mil/cmm RBC 3.97 LAB HGB(LOINC) 11.2-15.7 g/dL Hgb 12.2 LAB HCT(LOINC) 34.1-44.9 % Hct 36.1 LAB MCV(LOINC) 79.4-94.8 fl MCV 90.9 LAB MCH(LOINC) 25.6-32.2 pg MCH 30.7 LAB MCHC(LOINC 31.6-34.8 % ) MCHC 33.8 LAB RDW(LOINC) 11.7-14.4 % RDW 12.9 LAB RDWSD(LOIN 36.4-46.3 fl C) RDW SD 43.0 LAB PLT(LOINC) 182-369 thou/cmm Platelet 288 LAB MPV(LOINC) 9.4-12.3 fl Low MPV 8.7 LAB SEG(LOINC) % Seg Neutrophil 81.9 LAB IGRE(LOINC % ) Immature Grans 0.50 LAB LYMPH(LOIN % C) Lymphocyte 13.5 LAB MNO(LOINC) % Monocyte 2.8 LAB EOSIN(LOIN % C) Eosinophil 0.8 LAB BASO(LOINC % ) Basophil 0.5 LAB SEGN(LOINC 1.56-6.13 thou/cmm ) Abs. High Neut 8.68 LAB IGAB(LOINC 0.00-0.05 thou/cmm ) Abs Immature Grans 0.05 LAB LYMN(LOINC 1.18-3.74 thou/cmm ) Abs. Lymph 1.43 LAB MONON(LOIN 0.27-0.70 thou/cmm C) Abs. [place] 0.30 LAB EOSN(LOINC 0.00-0.31 thou/cmm ) Abs. Eosin 0.08 LAB BASON(LOIN 0.01-0.08 thou/cmm C) Abs. Baso 0.05 Performed By: #### CBCD1 #### [facility] [address] [place] [address] PHOSPHORUS BLOOD Collected: 10/31/2017 Status: F Source: [facility] 5:[facility] REPOSITORY TYPE CODE TESTS RESULT OUT OF REFERENCE UNITS RANGE LAB PHOS(LOINC 2.5-4.9 mg/dL ) Low alert Phosphorus Blood 1.7 Performed By: #### PHOS #### [place] [address] BASIC PANEL Collected: 10/31/2017 Status: F Source: [facility] 5:[address] [place] [address] SYSTEM REPOSITORY TYPE CODE TESTS RESULT OUT OF REFERENCE UNITS RANGE LAB NA(LOINC) 136-145 mEq/L Sodium Blood 141 LAB K(LOINC) 3.5-5.1 mEq/L Potassium Blood 4.0 Result Comment: SPECIMEN SLIGHTLY HEMOLYZED LAB CL(LOINC) 98-107 mEq/L Chloride High Blood 109 LAB CO2(LOINC) 21-32 mEq/L CO2 Blood 31 LAB GLU(LOINC) 70-99 mg/dL Glucose High Blood 112 LAB BUN(LOINC) 7-18 mg/dL BUN Blood Low 6 LAB CREA(LOINC) 0.51-0.95 mg/dL Creatinine Blood 0.60 LAB CA(LOINC) 8.5-10.1 mg/dL Calcium Low Blood 8.4 LAB ANGAP(LOINC) 8-16 Anion Gap Low 5 Performed By: #### P8 #### [place] [address] MDRD GFR Collected: 10/31/2017 Status: F Source: [facility] 5:[facility] REPOSITORY TYPE CODE TESTS RESULT OUT OF RANGE REFERENCE UNITS LAB GFRFN(LOINC >60mL/min/1.73m ) 2 eGFR >60 Result Comment: If the patient is , multiply the result by 1.210. Performed By: #### GFR #### [place] [address] GLUCOSE METER Collected: 10/30/2017 Status: F Source: [facility] 9:16 PM HEALTH SYSTEM REPOSITORY TYPE CODE TESTS RESULT OUT OF REFERENCE UNITS RANGE LAB GLUBL(LOINC 70-99 mg/dL ) High Glucose Meter 112 Result Comment: RN NOTIFIED Performed By: #### GLMET #### [facility] [address] [place] [address] GLUCOSE METER Collected: 10/30/2017 Status: F Source: [facility] 5:18 PM HEALTH SYSTEM REPOSITORY TYPE CODE TESTS RESULT OUT OF REFERENCE UNITS RANGE LAB GLUBL(LOINC 70-99 mg/dL ) High Glucose Meter 119 Result Comment: RN NOTIFIED Performed By: #### GLMET #### [facility] [address] [place] [address] CASE MANAGEM Observed: 10/30/2017 Status: COMPLETED Source: [facility] 2:39 PM CLINIC OTHER [place] REPOSITORY HNO ID: [id number] Author: Roro LiraRn) PRACHI Schwartz Service: Care Management Author Type: Registered Nurse Type: Care Mgt Progress Note Filed: 10/30/2017 2:44 PM Note Text: CARE MANAGEMENT PROGRESS NOTE SERVICE DATE: 10/30/2017 SERVICE TIME: 1130 LOS: 4 days Needs Prior to Discharge: OT/PT Evaluation Spoke with Surgery PROCEDURE MANAGER who reports patient's son wants an evaluation for possible therapy/placement at discharge. PT/OT evaluation and recommendations pending. Continue to follow for discharge planning needs. SIGNATURE: Roro Schwartz RN PATIENT NAME: Vee Hyatt DATE: October 30, 2017 TIME: 2:39 PM PAGER/CONTACT #: [phone] GLUCOSE METER Collected: 10/30/2017 Status: F Source: [facility] 11:34 AM HEALTH SYSTEM REPOSITORY TYPE CODE TESTS RESULT OUT OF REFERENCE UNITS RANGE LAB GLUBL(LOINC 70-99 mg/dL ) High Glucose Meter 134 Performed By: #### GLMET #### [facility] [address] [place] [address] CASE MANAGEM Observed: 10/30/2017 Status: COMPLETED Source: [facility] 9:34 AM CLINIC OTHER [place] REPOSITORY HNO ID: [id number] Author: Roro LiraRn) PRACHI Schwartz Service: Care Management Author Type: Registered Nurse Type: Care Mgt Progress Note Filed: 10/30/2017 9:41 AM Note Text: CARE MANAGEMENT PROGRESS NOTE SERVICE DATE: 10/30/2017 SERVICE TIME: 933 LOS: 4 days Needs Prior to Discharge: None;To Be Determined MD notes reviewed: GI follow-up outpatient for possible surgical intervention of Morgagni diaphragmatic hernia pending Cardiac and Pulmonary optimization/clearance. Anticipate possible discharge home later today. No new discharge needs noted. Son will transport home. SIGNATURE: Roro Schwartz RN PATIENT NAME: Vee Hyatt DATE: October 30, 2017 TIME: 9:34 AM PAGER/CONTACT #: [phone] GLUCOSE METER Collected: 10/30/2017 Status: F Source: [facility] 6:58 AM HEALTH SYSTEM REPOSITORY TYPE CODE TESTS RESULT OUT OF REFERENCE UNITS RANGE LAB GLUBL(LOINC 70-99 mg/dL ) High Glucose Meter 107 Result Comment: RN NOTIFIED Performed By: #### GLMET #### [place] [address] PROGRESS Observed: 10/30/2017 Status: COMPLETED Source: [facility] 6:41 AM CLINIC OTHER CAMPUS REPOSITORY HNO ID: [id number] Author: Jere Bryson Service: General Surgery Author Type: Resident Type: Progress Notes Filed: 10/30/2017 6:43 AM Note Text: Attestation signed by Diane De Los Santos at 10/30/2017 3:57 PM Patient reports abdominal pain has improved from admission and is now at her baseline. No nausea or vomiting. Poor appetite. ? Abd soft NT ND WBC down to 10 CT reviewed, no evidence of obstruction ? Appreciate consult by Dr. Murillo. He recommends no acute intervention given her recent flu and lack of obstructive symptoms. He will see her as an outpatient for further evaluation and after medical clearance. ? Continue general diet. KVO IVF PT/OT Will likely need SNF on dc, son requests [facility]. Discussed with patient's son that cardiopulmonary risks may be significant with operative repair. He understands and states that we are between a rock and a hard place in terms of operative repair and continued observation. He would like to follow up with Dr. Bar, who previously worked up this hernia. I left a message for Dr. Bar to discuss the patient's hospital course. - Dc when facility is set up Diane De Los Santos MD October 30, 2017 General Surgery Progress Note SERVICE DATE: 10/30/2017 SUBJECTIVE: No acute events. Tolerating PO. Pain about the same. Pt wants to go home and follow up as outpatient to discuss hernia repair. Tolerating diet DIET CARBOHYDRATE CONTROLLED OBJECTIVE: Vitals: Temp (24hrs), Av.7 ?C (98.1 ?F), Min:36.6 ?C (97.9 ?F), Max:36.8 ?C (98.2 ?F) BP 129/66 Pulse 85 Temp 36.8 ?C (98.2 ?F) (Oral) Resp 18 Ht 162.6 cm (5' 4) Wt 77.1 kg (170 lb) SpO2 93% BMI 29.18 kg/m2 O2 Therapy: Nasal Cannula IANDO: Date 10/29/17699 - 10/30/1759 10/30/17699 - 10/31/17 0659 Shift 7365-6064 8583-1616 6835-5268 24 Hour Total 9965-0309 7633-7562 3683-1139 24 Hour Total I N T A K E PO 480 360 150 990 PO 480 360 150 990 IV 7281 222 3113 D5 NS 8137 962 5595 Shift Total 1480 090 631 8484 O U T P U T Urine 200 400 275 875 Void (ml) 200 400 275 875 Urine Incontinence/Not Saved 2 x 2 x Shift Total 200 400 275 875 Weight (kg) 77.1 77.1 77.1 77.1 77.1 77.1 77.1 77.1 MEDICATIONS Current Facility-Administered Medications: insulin lispro pen (rapid acting) (HumaLOG KWIKPEN) SUBCUTANEOUS w MEALS AND HS ipratropium-albuterol 3 mL nebulizer solution (DUONEB) 3 mL INHALATION q 4 H PRN LORazepam 1 mg tab(s) (ATIVAN) 1 mg ORAL BID dextrose 5% in NaCl 0.9% iv infusion 50 mL/hr INTRAVENOUS CONTINUOUS morphine 2-4 mg injection 2-4 mg INTRAVENOUS q 3 H PRN pantoprazole 40 mg injection (PROTONIX) 40 mg INTRAVENOUS DAILY (6 AM) enoxaparin 40 mg injection (LOVENOX) 40 mg SUBCUTANEOUS DAILY ondansetron (PF) 4 mg injection (ZOFRAN) 4 mg INTRAVENOUS q 4 H PRN losartan 100 mg tab(s) (COZAAR) 100 mg ORAL DAILY pramipexole 0.75 mg tab(s) (MIRAPEX) 0.75 mg ORAL AT BEDTIME minoxidil 2.5 mg tab(s) (LONITEN) 2.5 mg ORAL BID FLUoxetine 60 mg cap(s) (PROzac) 60 mg ORAL DAILY atorvastatin 20 mg tab(s) (LIPITOR) 20 mg ORAL AT BEDTIME dextrose 40 % 15 g (INSTA-GLUCOSE) 15 g ORAL PRN Or glucagon 1 mg injection (GLUCAGEN) 1 mg INTRAMUSCULAR PRN Or dextrose 50% in water 25 mL syringe 12.5 g INTRAVENOUS PRN Labs: Recent Labs 10/30/17 0420 10/29/17 0335 NA 142 140 K 3.6 3.7 CHLOR 114* 110* CO2 26 28 BUN 7 9 CREAT 0.64 0.70 GLUC 115* 118* ANION 6* 6* CA 8.2* 8.4* MG 2.0 2.2 P 2.2* 2.6 WBC 10.18* 14.05* HB 11.0* 12.1 HCT 34.5 38.7 PLT 251 299 Exam: GENERAL: No distress, Alert NEURO: AANDOx3, CN II-XII grossly intact HEENT: normocephalic, atraumatic LUNGS: Unlabored breathing CARDIAC: Regular rate and rhythm as above ABDOMEN: Soft, non-tender, non-distended EXTREMITIES: LOPEZ, No deformities, No edema SKIN: Skin color, texture, turgor normal, No rashes or lesions ASSESSMENT AND PLAN: Active Hospital Problems Diagnosis Date Noted - Diaphragmatic hernia 10/26/2017 77 yo female with right-sided diaphragmatic hernia ?? - Reg diet - pain/nausea control - AM labs - ISS - ambulation with assitance - DC to home, f/u with Dr. Shields as outpt SIGNATURE: Jere Bryson MD PATIENT NAME: Vee Hyatt DATE: October 30, 2017 TIME: 6:41 AM Pager: [phone] HEMOGRAM/DIFF Collected: 10/30/2017 Status: F Source: [facility] 4:20 AM HEALTH SYSTEM REPOSITORY TYPE CODE TESTS RESULT OUT OF REFERENCE UNITS RANGE LAB WBC(LOINC) 3.98-10.04 thou/cmm WBC High 10.18 LAB RBC(LOINC) 3.93-5.22 mil/cmm Low RBC 3.68 LAB HGB(LOINC) 11.2-15.7 g/dL Low Hgb 11.0 LAB HCT(LOINC) 34.1-44.9 % Hct 34.5 LAB MCV(LOINC) 79.4-94.8 fl MCV 93.8 LAB MCH(LOINC) 25.6-32.2 pg MCH 29.9 LAB MCHC(LOINC 31.6-34.8 % ) MCHC 31.9 LAB RDW(LOINC) 11.7-14.4 % RDW 13.2 LAB RDWSD(LOIN 36.4-46.3 fl C) RDW SD 45.2 LAB PLT(LOINC) 182-369 thou/cmm Platelet 251 LAB MPV(LOINC) 9.4-12.3 fl Low MPV 8.6 LAB SEG(LOINC) % Seg Neutrophil 85.7 LAB IGRE(LOINC % ) Immature Grans 0.60 LAB LYMPH(LOIN % C) Lymphocyte 7.8 LAB MNO(LOINC) % Monocyte 4.1 LAB EOSIN(LOIN % C) Eosinophil 1.4 LAB BASO(LOINC % ) Basophil 0.4 LAB SEGN(LOINC 1.56-6.13 thou/cmm ) Abs. High Neut 8.72 LAB IGAB(LOINC 0.00-0.05 thou/cmm ) Abs High Immature Grans 0.06 LAB LYMN(LOINC 1.18-3.74 thou/cmm ) Low Abs. Lymph 0.79 LAB MONON(LOIN 0.27-0.70 thou/cmm C) Abs. [place] 0.42 LAB EOSN(LOINC 0.00-0.31 thou/cmm ) Abs. Eosin 0.14 LAB BASON(LOIN 0.01-0.08 thou/cmm C) Abs. Baso 0.04 Performed By: #### CBCD1 #### [facility] [address] [place] [address] PHOSPHORUS BLOOD Collected: 10/30/2017 Status: F Source: [facility] 4:20 AM HEALTH SYSTEM REPOSITORY TYPE CODE TESTS RESULT OUT OF REFERENCE UNITS RANGE LAB PHOS(LOINC 2.5-4.9 mg/dL ) Low Phosphorus Blood 2.2 Performed By: #### PHOS #### [place] [address] MAGNESIUM BLOOD Collected: 10/30/2017 Status: F Source: [facility] 4:20 AM HEALTH SYSTEM REPOSITORY TYPE CODE TESTS RESULT OUT OF REFERENCE UNITS RANGE LAB MAG(LOINC) 1.6-2.6 mg/dL Magnesium Blood 2.0 Performed By: #### MAG #### [place] [address] BASIC PANEL Collected: 10/30/2017 Status: F Source: [facility] 4:20 AM HEALTH SYSTEM REPOSITORY TYPE CODE TESTS RESULT OUT OF REFERENCE UNITS RANGE LAB NA(LOINC) 136-145 mEq/L Sodium Blood 142 LAB K(LOINC) 3.5-5.1 mEq/L Potassium Blood 3.6 LAB CL(LOINC) 98-107 mEq/L Chloride High Blood 114 LAB CO2(LOINC) 21-32 mEq/L CO2 Blood 26 LAB GLU(LOINC) 70-99 mg/dL Glucose High Blood 115 LAB BUN(LOINC) 7-18 mg/dL BUN Blood 7 LAB CREA(LOINC 0.51-0.95 mg/dL ) Creatinine Blood 0.64 LAB CA(LOINC) 8.5-10.1 mg/dL Low Calcium Blood 8.2 LAB ANGAP(LOIN 8-16 C) Low Anion Gap 6 Performed By: #### P8 #### [place] [address] MDRD GFR Collected: 10/30/2017 Status: F Source: [facility] [facility] AM [facility] REPOSITORY TYPE CODE TESTS RESULT OUT OF RANGE REFERENCE UNITS LAB GFRFN(LOINC >60mL/min/1.73m ) 2 eGFR >60 Result Comment: If the patient is , multiply the result by 1.210. Performed By: #### GFR #### [facility] [address] [place], [place] [address] GLUCOSE METER Collected: 10/29/2017 Status: F Source: [facility] 9:00 PM HEALTH SYSTEM REPOSITORY TYPE CODE TESTS RESULT OUT OF REFERENCE UNITS RANGE LAB GLUBL(LOINC 70-99 mg/dL ) High Glucose Meter 120 Result Comment: RN NOTIFIED Performed By: #### GLMET #### [facility] [address] [place], [place] [address] CONSULT Observed: 10/29/2017 Status: COMPLETED Source: [facility] 5:27 PM CLINIC OTHER CAMPUS REPOSITORY HNO ID: [id number] Author: Paul Shields Service: Gastroenterology Surgery Author Type: Physician Type: Consults Filed: 10/29/2017 5:41 PM Note Text: CONSULT: SURGERY SERVICE SERVICE DATE: 10/29/2017 REASON FOR CONSULT: Diaphragmatic hernia REQUESTING PHYSICIAN: Dr. Ludwig PRIMARY CARE PHYSICIAN: Diana George CNP Subjective I was asked to see this patient by Dr Ludwig for a recommendation on her diaphragmatic hernia. Ms. Hyatt is a 77 year old frail female who presents from [place] where she was seen for the flu. She was noted to have abdominal and right chest pain. A CT revealed a large diaphragmatic hernia. She has been having occasional right sided chest pain and has been in the ER several times per her son whom I spoke with on the phone.She was seen by a cardiotoracic surgeon in [place] in late 2015 who did not want to repair the hernia. She does not walk around very much at home. Currently she has no pain and is tolerating liquids. FUNCTIONAL STATUS: Limited most or all of the time (uses scooter, mobility device) PAST MEDICAL HISTORY Diagnosis Date - Acute, but ill-defined, cerebrovascular disease - Cardiomyopathy, nonischemic (HCC) - Essential hypertension, benign - GERD (gastroesophageal reflux disease) - Irritable bowel syndrome - Other and unspecified hyperlipidemia PAST SURGICAL HISTORY Procedure Laterality Date - APPENDECTOMY - LAPAROSCOPIC CHOLEYCYSTECTOMY Cholecystectomy, lap - REM LESION NEC,HND,SCAL 0.6-1.0CM 06/30/06 Exc. left neck francisco javier cyst - REMOVAL ADENOIDS,PRIMARY,<12 Y/O Adenoidectomy - REMOVAL OF TONSILS,<12 Y/O Tonsillectomy FAMILY HISTORY Problem Relation Age of Onset - Prostate Cancer Father - Colon Cancer Mother Social History Substance Use Topics - Smoking status: Never Smoker - Smokeless tobacco: Never Used - Alcohol use No Prescriptions Prior to Admission: cloNIDine HCl (CATAPRES) 0.1 mg tablet Take 0.1 mg by mouth. Take 1 half tablet Disp: Rfl: dicyclomine (BENTYL) 20 mg tablet 20 mg as needed (stomach cramping). Disp: Rfl: LORazepam (ATIVAN) 1 mg tablet Take 1 mg by mouth twice daily. Disp: Rfl: losartan (COZAAR) 100 mg tablet Take 100 mg by mouth once daily. Disp: Rfl: magnesium oxide (MAG-OX) 400 mg tablet Take 400 mg by mouth daily at bedtime. Disp: Rfl: minoxidil (LONITEN) 2.5 mg tablet Take 2.5 mg by mouth twice daily. Disp: Rfl: pantoprazole DR (PROTONIX) 20 mg tablet Take 20 mg by mouth once daily. Disp: Rfl: Pramipexole 0.75 mg tablet Take 0.75 mg by mouth daily at bedtime. Disp: Rfl: ondansetron (ZOFRAN) 4 mg tablet Take 1 tablet by mouth every 8 hours as needed. Disp: 30 tablet Rfl: 5 simvastatin 40 mg tablet Take 40 mg by mouth daily at bedtime. Disp: Rfl: FLUoxetine (PROZAC) 20 mg capsule Take 60 mg by mouth once daily. Disp: Rfl: ASPIRIN 81 MG CHEWABLE TAB Take one(1) tablet daily. Disp: Rfl: 0 Current hospital medications: insulin lispro pen (rapid acting) (HumaLOG KWIKPEN) SUBCUTANEOUS w MEALS AND HS ipratropium-albuterol 3 mL nebulizer solution (DUONEB) 3 mL INHALATION q 4 H PRN LORazepam 1 mg tab(s) (ATIVAN) 1 mg ORAL BID dextrose 5% in NaCl 0.9% iv infusion 50 mL/hr INTRAVENOUS CONTINUOUS morphine 2-4 mg injection 2-4 mg INTRAVENOUS q 3 H PRN pantoprazole 40 mg injection (PROTONIX) 40 mg INTRAVENOUS DAILY (6 AM) enoxaparin 40 mg injection (LOVENOX) 40 mg SUBCUTANEOUS DAILY ondansetron (PF) 4 mg injection (ZOFRAN) 4 mg INTRAVENOUS q 4 H PRN losartan 100 mg tab(s) (COZAAR) 100 mg ORAL DAILY pramipexole 0.75 mg tab(s) (MIRAPEX) 0.75 mg ORAL AT BEDTIME minoxidil 2.5 mg tab(s) (LONITEN) 2.5 mg ORAL BID FLUoxetine 60 mg cap(s) (PROzac) 60 mg ORAL DAILY atorvastatin 20 mg tab(s) (LIPITOR) 20 mg ORAL AT BEDTIME dextrose 40 % 15 g (INSTA-GLUCOSE) 15 g ORAL PRN glucagon 1 mg injection (GLUCAGEN) 1 mg INTRAMUSCULAR PRN dextrose 50% in water 25 mL syringe 12.5 g INTRAVENOUS PRN Allergies As of Date: 10/26/2017 (No Known Allergies) Fully Assessed 10/26/2017 COMPLETE REVIEW OF SYSTEMS: GENERAL: No weight loss, malaise or fevers Objective PHYSICAL EXAM: Physical Exam Performed: GENERAL: Alert, no distress, cooperative, very frail appearing ABDOMEN: Abdomen soft, non-tender, BS normal, No masses or organomegaly BP 136/70 Pulse 78 Temp (Src) 97.9 (Oral) Resp 16 Ht 5' 4 (1.63m) Wt 170 lb (77.1kg) SpO2 95% BMI 29.17 kg/(m2). 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 No acute Surgical issues. Patient may be a candidate for elective repair but would need cardiac and pulmonary Evaluation/optimization. My overall impression is that the risks of a surgery outweigh any benefit. Recommend frequent small meals, stool softeners. Will sign off. I discussed my assessment and recommendations with the patients son via phone and also with Dr. Douglas. SIGNATURE: Paul Shields MD, FACS, [facility] PATIENT NAME: Vee Hyatt DATE: October 29, 2017 TIME: 5:27 PM PAGER: GLUCOSE METER Collected: 10/29/2017 Status: F Source: [facility] 5:12 PM HEALTH SYSTEM REPOSITORY TYPE CODE TESTS RESULT OUT OF REFERENCE UNITS RANGE LAB GLUBL(LOINC 70-99 mg/dL ) High Glucose Meter 108 Result Comment: RN NOTIFIED Performed By: #### GLMET #### [facility] [address] [place] [id number] LEAD ELECTROCARDIOGRAM Observed: 10/29/2017 Status: F Source: [facility] 3:29 PM [facility] REPOSITORY [facility] Cardiovascular Services [address] [place] [address] 12 Lead EKG 10/25/17 2332 MR#: [id number] Acct: [id number] Name: VEE HYATT Rep #: [id number] : [id number] From: Orville Dumont MD Attending Dr: Maddy Bolaños Status: DIS AKIRA Ordering Dr: Immanuel Gonzales MD Date: 10/25/17 [place] [facility] [place] F C Admitted: 10/26/17 Test Reason : CP Blood Pressure : / mmHG Vent. Rate : 089 BPM Atrial Rate : 089 BPM P-R Int : 266 ms QRS Dur : 082 ms QT Int : 388 ms P-R-T Axes : 085 012 051 degrees QTc Int : 472 ms Sinus rhythm with 1st degree A-V block Nonspecific ST and T wave abnormality Abnormal ECG Confirmed by ORVILLE DUMONT MD ([id number]), editorial cartoonist KELLEN SUAREZ ([id number]) on 10/29/2017 3:28:58 PM Referred By: Jose L Valenzuela Confirmed By:ORVILLE DUMONT MD 10/29/17 1529 Date Orville Dumont MD CC: Jose L Valenzuela MD Signed CONSULTATION Observed: 10/29/2017 Status: F Source: [facility] 3:24 PM [facility] REPOSITORY [facility] Medical Records Department [address] [place] [address] Consultation 10/26/17 1047 MR#: [id number] Acct: [id number] Name: VEE HYATT Rep #: [id number] : [id number] From: Estefania Trinidad MD PCP: JoseL Valenzuela MD Status: DIS AKIRA Y Location: MS3 [id number] Reason for Consult Date of Consultation: 10/26/17 History of Present Illness: The patient is a 77 year old F admitted for diffuse abdominal pain. Patient did have a CT abdomen pelvis done which did show an anterior diaphragmatic hernia with colon and small bowel up in the left chest. On previous CTs of the abdomen and pelvis patient did also have this hernia in 2011 and 2013 with no additional small bowel or colon only fat however in February 2017 there is also colon and small bowel in the left chest through the hernia. Patient mainly states she has abdominal pain ever however when she points it is more in the right upper quadrant. She states she originally came in due to chest pain and thought she may be having a heart attack. She states the chest pain has resolved she still does have some shortness of breath with exertion. Patient previously saw Dr. Bar (CT Surgeon) at [facility] after she had that CAT scan back in February 2017; however she was not having any symptoms of this hernia at that time thus there is no plan for surgery. Patient was able to recall much about the previous appointment for this hernia however I did talk with the son, Kalia, who did confirm this information. Patient states she has had this abdominal pain for last couple months and she has had a decreased appetite with it as well occasional nausea patient states she has been passing gas and having bowel movements. Past Medical History Past Medical History (Chronic Problems): Chronic Problems Hx of appendectomy (Chronic) Benign essential HTN (Chronic) Depression (Chronic) HLD (hyperlipidemia) (Chronic) Overweight (BMI 25.0-29.9) (Chronic) CAD (coronary artery disease) (Chronic) Diabetes mellitus, type II (Chronic) Traumatic closed nondisplaced fracture of neck of left femur (Chronic) Status post closed reduction with internal fixation (Chronic) left femur 06/22, Dr Spears, [facility] Tinea unguium (Chronic) Dyskinesia, tardive (Chronic) Takatsuki syndrome (Chronic) Brain aneurysm (Chronic) Takotsubo syndrome (Chronic) Hypertension (Chronic) Allergies No Known Allergies Allergy (Verified 03/17/17 10:29) Home Medications: Ambulatory Orders Medication Instructions Recorded Surgical History: appendectomy, cholecystectomy, herniorrhaphy, tonsillectomy, - - 06/22/15 left hip CRIF Psychiatric History: Anxiety, Depression 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 Denies: Chills, Fever HEENT: Denies: Difficulty Swallowing Cardiovascular: Denies: Chest Pain - Currently Respiratory: Denies: Shortness of breath at rest Gastrointestinal: Reports: Abdominal Pain, Nausea. Denies: Constipation Genitourinary: Denies: Dysuria Skin: Reports: Rash Neurological: Denies: Blurred vision Psychiatric: Reports: Anxiety. Denies: Depression Hematologic/ Lymphatic: Denies: Easy Bleeding - Physical Exam General: Alert, Oriented x3, Cooperative Lungs: Normal air movement Cardiovascular: Regular rate Abdomen: Soft, Non-Distended, Passing Flatus, Tender - Mainly in the right upper quadrant and epigastric region Extremities: No clubbing, No cyanosis Lymphatic: No Cervical, Supraclavicular, or Inguinal Adenopathy Vital Signs Temp Pulse Resp BP Pulse Ox 98.5 F 98 20 H 142/78 H 98 10/26/17 10:36 10/26/17 10:36 10/26/17 10:36 10/26/17 10:36 10/26/17 10:36 Oxygen Flow Rate 4 Oxygen Delivery Method Nasal Cannula Weight: 172 lb 0.004 oz Body Mass Index (BMI) 29.5 Intake and Output for Last 24 Hours Intake Total 123 / 123 Output Total 150 / 150 Balance -27 / -27 Laboratory Tests Past 24 Hrs Lipase 201 Assessment/Plan 77-year-old female with diffuse abdominal pain, CT showing large anterior diaphragmatic hernia with colon and small bowel in the left chest. 1. On exams patient's abdominal pain is mostly in the right upper quadrant greater than left upper quadrant and no real abdominal pain in the lower abdomen. This is likely consistent with pain due to the hernia. This is an anterior diaphragmatic hernia which would need to see cardiothoracic surgery for repair. Patient previously was seen by Dr. Bar at [facility] about a little over a year ago for this but patient was not having symptoms at this time. Also discussed with the son Kalia per the patient's request and he suggested going back to [place] if possible for transfer versus [facility] or the [facility] as they did like Dr. Bar. Did also discuss the patient and her son that there was a lesion on the left kidney which would also require further workup and on CT was concerning for renal cell carcinoma. Patient's no further questions at this time. Also discussed with Dr. Bolaños. Estefania Trinidad M.D. Pager: [phone] [facility] [address] [place] [address], [address] [place] [address] Office: [phone] Code Visit Inpatient E AND M: 02055 Init Hosp L1 10/29/17 1524 <Electronically signed by Estefania Trinidad MD> Date Estefania Trinidad MD Cosigner Signature (if applicable): Date CC: Gurmeet Urena MD; Jose L Valenzuela MD; Estefania Trinidad MD Signed CASE MGT INIT Observed: 10/29/2017 Status: COMPLETED Source: [facility] 3:09 PM CLINIC OTHER CAMPUS REPOSITORY HNO ID: [id number] Author: Roro (Rn) PRACHI Schwartz Service: Care Management Author Type: Registered Nurse Type: Care Mgt Initial Assessment Filed: 10/29/2017 3:14 PM Note Text: CARE MANAGEMENT: ASSESSMENT AND DISCHARGE PLAN SERVICE DATE: 10/29/2017 SERVICE TIME: 1430 PRIMARY CARE PHYSICIAN: Diana George CNP ADMISSION STATUS: Inpatient POTENTIAL DISCHARGE PLANS Home Patient/City Planner Stated Goals: Patient plans to return home when medically stable. Needs Prior to Discharge: None;To Be Determined Health Insurance: [employer] Time Health Plan Living Arrangement: Home, ranch home with 3 steps to enter; bedroom/bathroom on main level Lives With: Alone Financial Resources: N/A Primary Contact: Extended Emergency Contact Information Primary Emergency Contact: Kalia Hyatt Relation: Son Supportive: Yes Other Important Patient Contacts: None CAREGIVER ASSESSMENT: Caregiver is ready, willing and able to meet the patient's needs as recommended by the inter-professional team? Yes Patient's transition needs and plan for meeting these needs: Patient plans to return home when medically stable. Does the patient have an acute stroke diagnosis, or has the patient had a stroke during this admission? No ADVANCE DIRECTIVES: Does Patient Have Advance Directives? Yes: Living Will Durable Power of Interior Wall Assembler for Health Care: Kalia kessler , Does Patient Have Concerns About Advance Directives? No PRIOR TO ADMISSION: Baseline Mental Status: Alert AND Oriented, Person, Place , Time and Situation Functional Status: Independent (mostly) Does Patient Currently Receive Any Community Services or Home Care? None Infant Room Teacher Equipment Prior to Admission: Cane - Straight Elevated toilet seat Walker grab bars HEALTH: Health Issues Impacting Discharge Plan: None Health Literacy Issues: No PSYCHOSOCIAL: Is the Patient Psychosocially Complex? No Family/Patient Understanding of Illness/Diagnosis: yes Medication Adherence: Do you forget to take your medications? Son prepares meds in organizer for patient. Have you ever stopped taking medications because you felt worse? None of the time Have you ever taken less of your medication than what was prescribed by your doctor? None of the time In the past 3 months, have you had issues obtaining one or more of your medications? None of the time Are you interested in bedside delivery of your medications? Yes Food Concerns: In the Last Month, Have You had Trouble Getting Food? No trouble getting food During the Last Month, Have You Worried Whether Your Food Would Run Out Before You Had Enough Money to Buy More? No Psychosocial Needs: None UTILIZATION: Last Admission Date: none Is this Within the Past 30 days? No Has the Patient Been in a [facility] Facility in the Past 30 days? No FREEDOM OF CHOICE EXPLAINED: N/A --no needs noted at this time. HANDOFF COMMUNICATION: Patient's son will transport home at discharge. SIGNATURE: Roro Schwartz RN PATIENT NAME: Vee Hyatt DATE: October 29, 2017 TIME: 3:09 PM PAGER/CONTACT #: [phone] CASE MANAGEM Observed: 10/29/2017 Status: COMPLETED Source: [facility] 12:21 PM [facility] REPOSITORY HNO ID: [id number] Author: Roro LiraRn) PRACHI Schwartz Service: Care Management Author Type: Registered Nurse Type: Care Mgt Progress Note Filed: 10/29/2017 12:24 PM Note Text: CARE MANAGEMENT PROGRESS NOTE SERVICE DATE: 10/29/2017 SERVICE TIME: 1222 LOS: 3 days Needs Prior to Discharge: None;To Be Determined Patient directly admitted from [facility] ED with Diaphragmatic hernia. Await treatment plans per General Surgery. Continue to follow for discharge planning needs. SIGNATURE: Roro Schwartz RN PATIENT NAME: Vee Hyatt DATE: October 29, 2017 TIME: 12:22 PM PAGER/CONTACT #: [phone] GLUCOSE METER Collected: 10/29/2017 Status: F Source: [facility] 11:33 AM HEALTH SYSTEM REPOSITORY TYPE CODE TESTS RESULT OUT OF REFERENCE UNITS RANGE LAB GLUBL(LOINC 70-99 mg/dL ) High Glucose Meter 114 Result Comment: RN NOTIFIED Performed By: #### GLMET #### [place] [address] NURSING PROG Observed: 10/29/2017 Status: COMPLETED Source: [facility] 8:42 AM [facility] REPOSITORY HNO ID: [id number] Author: Eugenio LiraRn) PRACHI Saunders Service: Nursing Author Type: Registered Nurse Type: Nursing Progress Note Filed: 10/29/2017 8:46 AM Note Text: Nursing Progress Note Patient Name: Vee Hyatt Patient Location: [place] [address] [address] Daily Note:Alerted Resident, Braydon, that pt was put on clears and needed insulin and blood sugar checks changed from q6 to achs. Resident to change orders. This note was completed by: Eugenio Saunders RN PROGRESS Observed: 10/29/2017 Status: COMPLETED Source: [facility] 5:58 [facility] REPOSITORY HNO ID: [id number] Author: Elliot Strickland Service: General Surgery Author Type: Resident Type: Progress Notes Filed: 10/29/2017 8:50 AM Note Text: Attestation signed by Diane De Los Santos at 10/29/2017 3:32 PM Patient reports abdominal pain has improved and is now at her baseline. No nausea or vomiting with clears. Abd soft NT ND WBC 14 CT reviewed, no evidence of obstruction Appreciate consult by Dr. Mruillo. He recommends no acute intervention given her recent flu and lack of obstructive symptoms. He will see her as an outpatient for further evaluation and after medical clearance. May advance to general diet. KVO IVF Diane De Los Santos MD October 29, 2017 General Surgery Progress Note SERVICE DATE: 10/29/2017 SUBJECTIVE: NAEON. Pain and anxiety much improved compared to yesterday. Denies chst/abdominal pain, nausea, emesis Tolerating diet DIET NPO Nausea No Emesis No Flatus Yes Bowel movement No Pain Controlled No Ambulating No OBJECTIVE: Vitals: Temp (24hrs), Av.6 ?C (97.9 ?F), Min:36.4 ?C (97.5 ?F), Max:36.8 ?C (98.2 ?F) BP 125/78 Pulse 82 Temp 36.6 ?C (97.9 ?F) (Oral) Resp 18 Ht 162.6 cm (5' 4) Wt 77.1 kg (170 lb) SpO2 93% BMI 29.18 kg/m2 O2 Therapy: Nasal Cannula IANDO: Date 10/28/17 07 - 10/29/17 0659 10/29/17 07 - 10/30/17 0659 Shift 1728-4530 4390-3563 4697-6710 24 Hour Total 8184-4858 9223-8888 9396-1746 24 Hour Total I N T A K E IV 362 1000 1362 D5 NS 362 1000 1362 Shift Total 362 1000 1362 O U T P U T Urine 350 056 032 9117 Void (ml) 350 490 751 3488 Urine Incontinence/Not Saved 1 x 1 x 2 x Shift Total 350 848 096 1528 Weight (kg) 77.1 77.1 77.1 77.1 77.1 77.1 77.1 77.1 MEDICATIONS Current Facility-Administered Medications: ipratropium-albuterol 3 mL nebulizer solution (DUONEB) 3 mL INHALATION q 4 H PRN LORazepam 1 mg tab(s) (ATIVAN) 1 mg ORAL BID dextrose 5% in NaCl 0.9% iv infusion 100 mL/hr INTRAVENOUS CONTINUOUS morphine 2-4 mg injection 2-4 mg INTRAVENOUS q 3 H PRN pantoprazole 40 mg injection (PROTONIX) 40 mg INTRAVENOUS DAILY (6 AM) enoxaparin 40 mg injection (LOVENOX) 40 mg SUBCUTANEOUS DAILY ondansetron (PF) 4 mg injection (ZOFRAN) 4 mg INTRAVENOUS q 4 H PRN losartan 100 mg tab(s) (COZAAR) 100 mg ORAL DAILY pramipexole 0.75 mg tab(s) (MIRAPEX) 0.75 mg ORAL AT BEDTIME minoxidil 2.5 mg tab(s) (LONITEN) 2.5 mg ORAL BID FLUoxetine 60 mg cap(s) (PROzac) 60 mg ORAL DAILY atorvastatin 20 mg tab(s) (LIPITOR) 20 mg ORAL AT BEDTIME dextrose 40 % 15 g (INSTA-GLUCOSE) 15 g ORAL PRN Or glucagon 1 mg injection (GLUCAGEN) 1 mg INTRAMUSCULAR PRN Or dextrose 50% in water 25 mL syringe 12.5 g INTRAVENOUS PRN insulin lispro pen (rapid acting) (HumaLOG KWIKPEN) SUBCUTANEOUS q 6 H Labs: Recent Labs 10/29/17 0335 10/28/17 0340 NA 140 141 K 3.7 3.6 CHLOR 110* 109* CO2 28 29 BUN 9 9 CREAT 0.70 0.85 GLUC 118* 113* ANION 6* 7* CA 8.4* 8.3* MG 2.2 2.3 P 2.6 3.5 WBC 14.05* 9.85 HB 12.1 12.0 HCT 38.7 38.3 PLT 299 257 Exam:GENERAL: mildly anxious NEURO: AANDOx3 HEENT: normocephalic, atraumatic LUNGS: mildly labored breathing. Bilateral wheeze CARDIAC: Regular rate and rhythm as above ABDOMEN: Soft, non-distended, RUQ tender EXTREMITIES: LOPEZ, No deformities, No edema SKIN: warm, dry ASSESSMENT AND PLAN: Active Hospital Problems Diagnosis Date Noted - Diaphragmatic hernia 10/26/2017 77 yo female with right-sided diaphragmatic hernia. Currently asymptomatic with the exception of abdominal pain. Likely needs repair, but not urgently ?? - NPO/IVF. Will give clear liquids today - pain/nausea control - AM labs - ISS - encourage ambulation with assitance - adding duonebs and home ativan dose - hernia repair to be discussed by attendings for possible intervention during this admission SIGNATURE: Elliot Strickland MD PATIENT NAME: Vee Hyatt DATE: October 29, 2017 TIME: 5:58 AM Pager: [phone] GLUCOSE METER Collected: 10/29/2017 Status: F Source: [facility] 5:44 AM HEALTH SYSTEM REPOSITORY TYPE CODE TESTS RESULT OUT OF REFERENCE UNITS RANGE LAB GLUBL(LOINC 70-99 mg/dL ) High Glucose Meter 114 Result Comment: RN NOTIFIED Performed By: #### GLMET #### [place] [address] HEMOGRAM/DIFF Collected: 10/29/2017 Status: F Source: [facility] 3:35 AM HEALTH SYSTEM REPOSITORY TYPE CODE TESTS RESULT OUT OF REFERENCE UNITS RANGE LAB WBC(LOINC) 3.98-10.04 thou/cmm WBC High 14.05 LAB RBC(LOINC) 3.93-5.22 mil/cmm RBC 4.06 LAB HGB(LOINC) 11.2-15.7 g/dL Hgb 12.1 LAB HCT(LOINC) 34.1-44.9 % Hct 38.7 LAB MCV(LOINC) 79.4-94.8 fl MCV High 95.3 LAB MCH(LOINC) 25.6-32.2 pg MCH 29.8 LAB MCHC(LOINC 31.6-34.8 % ) Low MCHC 31.3 LAB RDW(LOINC) 11.7-14.4 % RDW 13.2 LAB RDWSD(LOIN 36.4-46.3 fl C) RDW SD 46.2 LAB PLT(LOINC) 182-369 thou/cmm Platelet 299 LAB MPV(LOINC) 9.4-12.3 fl Low MPV 8.6 LAB SEG(LOINC) % Seg Neutrophil 61.5 LAB IGRE(LOINC % ) Immature Grans 0.60 LAB LYMPH(LOIN % C) Lymphocyte 28.6 LAB MNO(LOINC) % Monocyte 6.9 LAB EOSIN(LOIN % C) Eosinophil 1.9 LAB BASO(LOINC % ) Basophil 0.5 LAB SEGN(LOINC 1.56-6.13 thou/cmm ) Abs. High Neut 8.64 LAB IGAB(LOINC 0.00-0.05 thou/cmm ) Abs High Immature Grans 0.08 LAB LYMN(LOINC 1.18-3.74 thou/cmm ) Abs. High Lymph 4.02 LAB MONON(LOIN 0.27-0.70 thou/cmm C) Abs. High [place] 0.97 LAB EOSN(LOINC 0.00-0.31 thou/cmm ) Abs. Eosin 0.27 LAB BASON(LOIN 0.01-0.08 thou/cmm C) Abs. Baso 0.07 Result Comment: Smear scanned; tech agrees with automated differential Performed By: #### [id number] #### [place] [address] PHOSPHORUS BLOOD Collected: 10/29/2017 Status: F Source: [facility] 3:35 AM HEALTH SYSTEM REPOSITORY TYPE CODE TESTS RESULT OUT OF REFERENCE UNITS RANGE LAB PHOS(LOINC 2.5-4.9 mg/dL ) Phosphorus Blood 2.6 Performed By: #### PHOS #### [place] [address] MAGNESIUM BLOOD Collected: 10/29/2017 Status: F Source: [facility] 3:35 AM HEALTH SYSTEM REPOSITORY TYPE CODE TESTS RESULT OUT OF REFERENCE UNITS RANGE LAB MAG(LOINC) 1.6-2.6 mg/dL Magnesium Blood 2.2 Performed By: #### MAG #### [facility] [address] [place] [address] BASIC PANEL Collected: 10/29/2017 Status: F Source: [facility] 3:35 AM HEALTH SYSTEM REPOSITORY TYPE CODE TESTS RESULT OUT OF REFERENCE UNITS RANGE LAB NA(LOINC) 136-145 mEq/L Sodium Blood 140 LAB K(LOINC) 3.5-5.1 mEq/L Potassium Blood 3.7 LAB CL(LOINC) 98-107 mEq/L Chloride High Blood 110 LAB CO2(LOINC) 21-32 mEq/L CO2 Blood 28 LAB GLU(LOINC) 70-99 mg/dL Glucose High Blood 118 LAB BUN(LOINC) 7-18 mg/dL BUN Blood 9 LAB CREA(LOINC 0.51-0.95 mg/dL ) Creatinine Blood 0.70 LAB CA(LOINC) 8.5-10.1 mg/dL Low Calcium Blood 8.4 LAB ANGAP(LOIN 8-16 C) Low Anion Gap 6 Performed By: #### P8 #### [place] [address] MDRD GFR Collected: 10/29/2017 Status: F Source: [facility] 3:35 AM HEALTH SYSTEM REPOSITORY TYPE CODE TESTS RESULT OUT OF RANGE REFERENCE UNITS LAB GFRFN(LOINC >60mL/min/1.73m ) 2 eGFR >60 Result Comment: If the patient is , multiply the result by 1.210. Performed By: #### GFR #### [address] [address] GLUCOSE METER Collected: 10/28/2017 Status: F Source: [facility] 11:45 PM HEALTH SYSTEM REPOSITORY TYPE CODE TESTS RESULT OUT OF REFERENCE UNITS RANGE LAB GLUBL(LOINC 70-99 mg/dL ) High Glucose Meter 116 Result Comment: RN NOTIFIED Performed By: #### GLMET #### [facility] [address] [place] [id number] GLUCOSE METER Collected: 10/28/2017 Status: F Source: [facility] 5:56 PM HEALTH SYSTEM REPOSITORY TYPE CODE TESTS RESULT OUT OF REFERENCE UNITS RANGE LAB GLUBL(LOINC 70-99 mg/dL ) High Glucose Meter 127 Performed By: #### GLMET #### [facility] [address] [place], [place] [address] GLUCOSE METER Collected: 10/28/2017 Status: F Source: [facility] 11:57 AM HEALTH SYSTEM REPOSITORY TYPE CODE TESTS RESULT OUT OF REFERENCE UNITS RANGE LAB GLUBL(LOINC 70-99 mg/dL ) High Glucose Meter 127 Performed By: #### GLMET #### [facility] [address] [place], [place] [address] PROGRESS Observed: 10/28/2017 Status: COMPLETED Source: [facility] 6:20 AM CLINIC OTHER CAMPUS REPOSITORY HNO ID: [id number] Author: Elliot Strickland Service: General Surgery Author Type: Resident Type: Progress Notes Filed: 10/28/2017 8:52 AM Note Text: Attestation signed by Lacho Ludwig at 10/28/2017 11:53 AM I saw and evaluated the patient. Discussed with the resident and agree with resident's findings and plan as documented in the resident's note. A/P: Complex hiatal/diaphragmatic hernia This prob needs repair but will need to coordinate Rx Lacho Ludwig MD General Surgery Progress Note SERVICE DATE: 10/28/2017 SUBJECTIVE: Continues to be very anxious. Reports RUQ pain. Tolerating diet DIET NPO Nausea No Emesis No Flatus Yes Bowel movement No Pain Controlled Yes Ambulating No OBJECTIVE: Vitals: Temp (24hrs), Av.6 ?C (97.9 ?F), Min:36.2 ?C (97.2 ?F), Max:36.8 ?C (98.2 ?F) BP 103/57 Pulse 78 Temp 36.6 ?C (97.9 ?F) (Temporal Artery) Resp 18 Ht 162.6 cm (5' 4) Wt 77.1 kg (170 lb) SpO2 94% BMI 29.18 kg/m2 O2 Therapy: Nasal Cannula IANDO: Date 10/27/17699 - 10/28/17 0659 10/28/17699 - 10/29/17 0659 Shift 3841-8199 0877-0630 0134-9625 24 Hour Total 2525-2991 9714-5709 0796-8099 24 Hour Total I N T A K E IV 1045 1000 2045 D5 NS 795 1000 1795 IVPB 250 250 Shift Total 1045 1000 2045 O U T P U T Urine Urine Incontinence/Not Saved 1 x 2 x 3 x Shift Total Weight (kg) 77.1 77.1 77.1 77.1 77.1 77.1 77.1 77.1 MEDICATIONS Current Facility-Administered Medications: ipratropium-albuterol 3 mL nebulizer solution (DUONEB) 3 mL INHALATION q 4 H PRN LORazepam 1 mg tab(s) (ATIVAN) 1 mg ORAL BID dextrose 5% in NaCl 0.9% iv infusion 100 mL/hr INTRAVENOUS CONTINUOUS morphine 2-4 mg injection 2-4 mg INTRAVENOUS q 3 H PRN pantoprazole 40 mg injection (PROTONIX) 40 mg INTRAVENOUS DAILY (6 AM) enoxaparin 40 mg injection (LOVENOX) 40 mg SUBCUTANEOUS DAILY ondansetron (PF) 4 mg injection (ZOFRAN) 4 mg INTRAVENOUS q 4 H PRN losartan 100 mg tab(s) (COZAAR) 100 mg ORAL DAILY pramipexole 0.75 mg tab(s) (MIRAPEX) 0.75 mg ORAL AT BEDTIME minoxidil 2.5 mg tab(s) (LONITEN) 2.5 mg ORAL BID FLUoxetine 60 mg cap(s) (PROzac) 60 mg ORAL DAILY atorvastatin 20 mg tab(s) (LIPITOR) 20 mg ORAL AT BEDTIME dextrose 40 % 15 g (INSTA-GLUCOSE) 15 g ORAL PRN Or glucagon 1 mg injection (GLUCAGEN) 1 mg INTRAMUSCULAR PRN Or dextrose 50% in water 25 mL syringe 12.5 g INTRAVENOUS PRN insulin lispro pen (rapid acting) (HumaLOG KWIKPEN) SUBCUTANEOUS q 6 H Labs: Recent Labs 10/28/17 0340 10/27/17 0437 NA 141 139 K 3.6 3.5 CHLOR 109* 108* CO2 29 31 BUN 9 8 CREAT 0.85 0.77 GLUC 113* 132* ANION 7* 4* CA 8.3* 8.9 MG 2.3 2.5 P 3.5 2.7 WBC 9.85 10.86* HB 12.0 12.0 HCT 38.3 37.2 PLT 257 288 Exam: GENERAL: mildly anxious NEURO: AANDOx3 HEENT: normocephalic, atraumatic LUNGS: mildly labored breathing. Bilateral wheeze CARDIAC: Regular rate and rhythm as above ABDOMEN: Soft, non-distended, RUQ tender EXTREMITIES: LOPEZ, No deformities, No edema SKIN: Skin color, texture, turgor normal, No rashes or lesions ASSESSMENT AND PLAN: Active Hospital Problems Diagnosis Date Noted - Diaphragmatic hernia 10/26/2017 77 yo female with right-sided diaphragmatic hernia. Currently asymptomatic with the exception of abdominal pain. Likely needs repair, but not urgently ?? - NPO/IVF. Possibly advance - pain/nausea control - AM labs - ISS - adding duonebs and home ativan dose SIGNATURE: Elliot Strickland MD PATIENT NAME: Vee Hyatt DATE: October 28, 2017 TIME: 6:20 AM Pager: [phone] GLUCOSE METER Collected: 10/28/2017 Status: F Source: [facility] 6:11 AM HEALTH SYSTEM REPOSITORY TYPE CODE TESTS RESULT OUT OF REFERENCE UNITS RANGE LAB GLUBL(LOINC 70-99 mg/dL ) High Glucose Meter 112 Performed By: #### GLMET #### [place] [address] HEMOGRAM/DIFF Collected: 10/28/2017 Status: F Source: [facility] 3:40 AM HEALTH SYSTEM REPOSITORY TYPE CODE TESTS RESULT OUT OF REFERENCE UNITS RANGE LAB WBC(LOINC) 3.98-10.04 thou/cmm WBC 9.85 LAB RBC(LOINC) 3.93-5.22 mil/cmm RBC 4.03 LAB HGB(LOINC) 11.2-15.7 g/dL Hgb 12.0 LAB HCT(LOINC) 34.1-44.9 % Hct 38.3 LAB MCV(LOINC) 79.4-94.8 fl MCV High 95.0 LAB MCH(LOINC) 25.6-32.2 pg MCH 29.8 LAB MCHC(LOINC 31.6-34.8 % ) Low MCHC 31.3 LAB RDW(LOINC) 11.7-14.4 % RDW 13.4 LAB RDWSD(LOIN 36.4-46.3 fl C) RDW SD High 46.8 LAB PLT(LOINC) 182-369 thou/cmm Platelet 257 LAB MPV(LOINC) 9.4-12.3 fl Low MPV 8.7 LAB SEG(LOINC) % Seg Neutrophil 73.6 LAB IGRE(LOINC % ) Immature Grans 0.50 LAB LYMPH(LOIN % C) Lymphocyte 16.4 LAB MNO(LOINC) % Monocyte 6.5 LAB EOSIN(LOIN % C) Eosinophil 2.6 LAB BASO(LOINC % ) Basophil 0.4 LAB SEGN(LOINC 1.56-6.13 thou/cmm ) Abs. High Neut 7.25 LAB IGAB(LOINC 0.00-0.05 thou/cmm ) Abs Immature Grans 0.05 LAB LYMN(LOINC 1.18-3.74 thou/cmm ) Abs. Lymph 1.62 LAB MONON(LOIN 0.27-0.70 thou/cmm C) Abs. [place] 0.64 LAB EOSN(LOINC 0.00-0.31 thou/cmm ) Abs. Eosin 0.26 LAB BASON(LOIN 0.01-0.08 thou/cmm C) Abs. Baso 0.04 Performed By: #### CBCD1 #### [place] [address] PHOSPHORUS BLOOD Collected: 10/28/2017 Status: F Source: [facility] 3:40 AM HEALTH SYSTEM REPOSITORY TYPE CODE TESTS RESULT OUT OF REFERENCE UNITS RANGE LAB PHOS(LOINC 2.5-4.9 mg/dL ) Phosphorus Blood 3.5 Performed By: #### PHOS #### [place] [address] MAGNESIUM BLOOD Collected: 10/28/2017 Status: F Source: [facility] 3:40 AM HEALTH SYSTEM REPOSITORY TYPE CODE TESTS RESULT OUT OF REFERENCE UNITS RANGE LAB MAG(LOINC) 1.6-2.6 mg/dL Magnesium Blood 2.3 Performed By: #### MAG #### [facility] [address] [place] [address] BASIC PANEL Collected: 10/28/2017 Status: F Source: [facility] 3:40 AM HEALTH SYSTEM REPOSITORY TYPE CODE TESTS RESULT OUT OF REFERENCE UNITS RANGE LAB NA(LOINC) 136-145 mEq/L Sodium Blood 141 LAB K(LOINC) 3.5-5.1 mEq/L Potassium Blood 3.6 LAB CL(LOINC) 98-107 mEq/L Chloride High Blood 109 LAB CO2(LOINC) 21-32 mEq/L CO2 Blood 29 LAB GLU(LOINC) 70-99 mg/dL Glucose High Blood 113 LAB BUN(LOINC) 7-18 mg/dL BUN Blood 9 LAB CREA(LOINC 0.51-0.95 mg/dL ) Creatinine Blood 0.85 LAB CA(LOINC) 8.5-10.1 mg/dL Low Calcium Blood 8.3 LAB ANGAP(LOIN 8-16 C) Low Anion Gap 7 Performed By: #### P8 #### [facility] [address] [place] [address] MDRD GFR Collected: 10/28/2017 Status: F Source: [facility] 3:40 AM HEALTH SYSTEM REPOSITORY TYPE CODE TESTS RESULT OUT OF RANGE REFERENCE UNITS LAB GFRFN(LOINC >60mL/min/1.73m ) 2 eGFR >60 Result Comment: If the patient is , multiply the result by 1.210. Performed By: #### GFR #### [facility] [address] [place] [address] GLUCOSE METER Collected: 10/28/2017 Status: F Source: [facility] 12:02 AM HEALTH SYSTEM REPOSITORY TYPE CODE TESTS RESULT OUT OF REFERENCE UNITS RANGE LAB GLUBL(LOINC 70-99 mg/dL ) High Glucose Meter 123 Performed By: #### GLMET #### [facility] [address] [place] [address] GLUCOSE METER Collected: 10/27/2017 Status: F Source: [facility] 5:34 PM HEALTH SYSTEM REPOSITORY TYPE CODE TESTS RESULT OUT OF REFERENCE UNITS RANGE LAB GLUBL(LOINC 70-99 mg/dL ) High Glucose Meter 104 Result Comment: RN NOTIFIED Performed By: #### GLMET #### [facility] [address] [place], [place] [address] GLUCOSE METER Collected: 10/27/2017 Status: F Source: [facility] 12:27 PM HEALTH SYSTEM REPOSITORY TYPE CODE TESTS RESULT OUT OF REFERENCE UNITS RANGE LAB GLUBL(LOINC 70-99 mg/dL ) High Glucose Meter 154 Performed By: #### GLMET #### [facility] [address] [place], [place] [address] PROGRESS Observed: 10/27/2017 Status: COMPLETED Source: [facility] 7:03 AM [facility] OTHER CAMPUS REPOSITORY HNO ID: [id number] Author: Elliot Strickland Service: General Surgery Author Type: Resident Type: Progress Notes Filed: 10/27/2017 9:19 AM Note Text: Attestation signed by Lacho Ludwig at 10/27/2017 6:02 PM I saw and evaluated the patient. Discussed with the resident and agree with resident's findings and plan as documented in the resident's note. Able to see images- she has a large complex hernia She nay have some loss of domain from abd. I do not see signs of obstruction on CT Prob needs repair but like to do this non-urgently Lacho Ludwig MD General Surgery Progress Note SERVICE DATE: 10/27/2017 SUBJECTIVE: NAEON. Pt nervous/anxiosu this morning about potential options/outocmes to her diaphragmatic hernia. Continues to have RUQ abdominal pain. (+) bowel function. Pain moderately controlled Tolerating diet DIET NPO OBJECTIVE: Vitals: Temp (24hrs), Av.7 ?C (98 ?F), Min:36 ?C (96.8 ?F), Max:37.1 ?C (98.8 ?F) BP 141/76 Pulse 84 Temp 36 ?C (96.8 ?F) (Temporal Artery) Resp 18 Ht 162.6 cm (5' 4) Wt 77.1 kg (170 lb) SpO2 96% BMI 29.18 kg/m2 O2 Therapy: Nasal Cannula IANDO: Date 10/26/17 07 - 10/27/17 0659 10/27/17 07 - 10/28/17 0659 Shift 5263-9491 2303-6115 8775-1476 24 Hour Total 4311-5603 5007-1387 4850-5827 24 Hour Total I N T A K E IV 1224 1224 D5 NS 1224 1224 Shift Total 1224 1224 O U T P U T Urine 425 175 600 Void (ml) 425 175 600 Urine Incontinence/Not Saved 1 x 1 x Shift Total 425 175 600 Weight (kg) 77.1 77.1 77.1 77.1 77.1 77.1 77.1 MEDICATIONS Current Facility-Administered Medications: sodium phosphate 30 mmol in D5W 250 mL 30 mmol INTRAVENOUS ONCE dextrose 5% in NaCl 0.9% iv infusion 100 mL/hr INTRAVENOUS CONTINUOUS morphine 2-4 mg injection 2-4 mg INTRAVENOUS q 3 H PRN pantoprazole 40 mg injection (PROTONIX) 40 mg INTRAVENOUS DAILY (6 AM) enoxaparin 40 mg injection (LOVENOX) 40 mg SUBCUTANEOUS DAILY ondansetron (PF) 4 mg injection (ZOFRAN) 4 mg INTRAVENOUS q 4 H PRN losartan 100 mg tab(s) (COZAAR) 100 mg ORAL DAILY pramipexole 0.75 mg tab(s) (MIRAPEX) 0.75 mg ORAL AT BEDTIME minoxidil 2.5 mg tab(s) (LONITEN) 2.5 mg ORAL BID FLUoxetine 60 mg cap(s) (PROzac) 60 mg ORAL DAILY atorvastatin 20 mg tab(s) (LIPITOR) 20 mg ORAL AT BEDTIME dextrose 40 % 15 g (INSTA-GLUCOSE) 15 g ORAL PRN Or glucagon 1 mg injection (GLUCAGEN) 1 mg INTRAMUSCULAR PRN Or dextrose 50% in water 25 mL syringe 12.5 g INTRAVENOUS PRN insulin lispro pen (rapid acting) (HumaLOG KWIKPEN) SUBCUTANEOUS q 6 H Labs: Recent Labs 10/27/17 0437 NA 139 K 3.5 CHLOR 108* CO2 31 BUN 8 CREAT 0.77 GLUC 132* ANION 4* CA 8.9 MG 2.5 P 2.7 WBC 10.86* HB 12.0 HCT 37.2 PLT 288 Exam: GENERAL: mildly anxious NEURO: AANDOx3 HEENT: normocephalic, atraumatic LUNGS: mildly labored breathing. Bilateral wheeze CARDIAC: Regular rate and rhythm as above ABDOMEN: Soft, non-tender, non-distended EXTREMITIES: LOPEZ, No deformities, No edema SKIN: Skin color, texture, turgor normal, No rashes or lesions ASSESSMENT AND PLAN: Active Hospital Problems Diagnosis Date Noted - Diaphragmatic hernia 10/26/2017 77 yo female with right-sided diaphragmatic hernia. Currently asymptomatic with the exception of abdominal pain ? - NPO/IVF - pain/nausea control - AM labs - ISS - adding duonebs and home ativan dose - possible surgical intervention TBD SIGNATURE: Elliot Strickland MD PATIENT NAME: Vee Hyatt DATE: October 27, 2017 TIME: 7:03 AM Pager: [phone] GLUCOSE METER Collected: 10/27/2017 Status: F Source: [facility] 6:24 AM HEALTH SYSTEM REPOSITORY TYPE CODE TESTS RESULT OUT OF REFERENCE UNITS RANGE LAB GLUBL(LOINC 70-99 mg/dL ) High Glucose Meter 159 Result Comment: RN NOTIFIED Performed By: #### GLMET #### [place] [address] HEMOGRAM/DIFF Collected: 10/27/2017 Status: F Source: [facility] 4:37 AM HEALTH SYSTEM REPOSITORY TYPE CODE TESTS RESULT OUT OF REFERENCE UNITS RANGE LAB WBC(LOINC) 3.98-10.04 thou/cmm WBC High 10.86 LAB RBC(LOINC) 3.93-5.22 mil/cmm RBC 4.02 LAB HGB(LOINC) 11.2-15.7 g/dL Hgb 12.0 LAB HCT(LOINC) 34.1-44.9 % Hct 37.2 LAB MCV(LOINC) 79.4-94.8 fl MCV 92.5 LAB MCH(LOINC) 25.6-32.2 pg MCH 29.9 LAB MCHC(LOINC 31.6-34.8 % ) MCHC 32.3 LAB RDW(LOINC) 11.7-14.4 % RDW 13.4 LAB RDWSD(LOIN 36.4-46.3 fl C) RDW SD 45.8 LAB PLT(LOINC) 182-369 thou/cmm Platelet 288 LAB MPV(LOINC) 9.4-12.3 fl Low MPV 8.6 LAB SEG(LOINC) % Seg Neutrophil 74.1 LAB IGRE(LOINC % ) Immature Grans 0.60 LAB LYMPH(LOIN % C) Lymphocyte 17.1 LAB MNO(LOINC) % Monocyte 5.1 LAB EOSIN(LOIN % C) Eosinophil 2.5 LAB BASO(LOINC % ) Basophil 0.6 LAB SEGN(LOINC 1.56-6.13 thou/cmm ) Abs. High Neut 8.05 LAB IGAB(LOINC 0.00-0.05 thou/cmm ) Abs High Immature Grans 0.07 LAB LYMN(LOINC 1.18-3.74 thou/cmm ) Abs. Lymph 1.86 LAB MONON(LOIN 0.27-0.70 thou/cmm C) Abs. [place] 0.55 LAB EOSN(LOINC 0.00-0.31 thou/cmm ) Abs. Eosin 0.27 LAB BASON(LOIN 0.01-0.08 thou/cmm C) Abs. Baso 0.07 Performed By: #### CBCD1 #### [place] [address] PHOSPHORUS BLOOD Collected: 10/27/2017 Status: F Source: [facility] 4:37 AM HEALTH SYSTEM REPOSITORY TYPE CODE TESTS RESULT OUT OF REFERENCE UNITS RANGE LAB PHOS(LOINC 2.5-4.9 mg/dL ) Phosphorus Blood 2.7 Performed By: #### PHOS #### [place] [address] MAGNESIUM BLOOD Collected: 10/27/2017 Status: F Source: [facility] 4:37 AM HEALTH SYSTEM REPOSITORY TYPE CODE TESTS RESULT OUT OF REFERENCE UNITS RANGE LAB MAG(LOINC) 1.6-2.6 mg/dL Magnesium Blood 2.5 Performed By: #### MAG #### [facility] [address] [place] [address] BASIC PANEL Collected: 10/27/2017 Status: F Source: [facility] 4:37 AM HEALTH SYSTEM REPOSITORY TYPE CODE TESTS RESULT OUT OF REFERENCE UNITS RANGE LAB NA(LOINC) 136-145 mEq/L Sodium Blood 139 LAB K(LOINC) 3.5-5.1 mEq/L Potassium Blood 3.5 LAB CL(LOINC) 98-107 mEq/L Chloride High Blood 108 LAB CO2(LOINC) 21-32 mEq/L CO2 Blood 31 LAB GLU(LOINC) 70-99 mg/dL Glucose High Blood 132 LAB BUN(LOINC) 7-18 mg/dL BUN Blood 8 LAB CREA(LOINC 0.51-0.95 mg/dL ) Creatinine Blood 0.77 LAB CA(LOINC) 8.5-10.1 mg/dL Calcium Blood 8.9 LAB ANGAP(LOIN 8-16 C) Low Anion Gap 4 Performed By: #### P8 #### [place] [address] MDRD GFR Collected: 10/27/2017 Status: F Source: [facility] 4:37 AM HEALTH SYSTEM REPOSITORY TYPE CODE TESTS RESULT OUT OF RANGE REFERENCE UNITS LAB GFRFN(LOINC >60mL/min/1.73m ) 2 eGFR >60 Result Comment: If the patient is , multiply the result by 1.210. Performed By: #### GFR #### [facility] [address] [place] [address] GLUCOSE METER Collected: 10/27/2017 Status: F Source: [facility] 12:02 AM HEALTH SYSTEM REPOSITORY TYPE CODE TESTS RESULT OUT OF REFERENCE UNITS RANGE LAB GLUBL(LOINC 70-99 mg/dL ) High Glucose Meter 138 Result Comment: RN NOTIFIED Performed By: #### GLMET #### [facility] [address] [place] [address] GLUCOSE METER Collected: 10/26/2017 Status: F Source: [facility] 6:38 PM HEALTH SYSTEM REPOSITORY TYPE CODE TESTS RESULT OUT OF REFERENCE UNITS RANGE LAB GLUBL(LOINC 70-99 mg/dL ) High Glucose Meter 114 Result Comment: RN NOTIFIED Performed By: #### GLMET #### [facility] [address] [place], [place] [address] HISTORY PHYSICAL Observed: 10/26/2017 Status: COMPLETED Source: [facility] 5:24 PM CLINIC OTHER CAMPUS REPOSITORY HNO ID: [id number] Author: Elliot Strickland Service: General Surgery Author Type: Resident Type: HANDP Filed: 10/26/2017 7:28 PM Note Text: Attestation signed by Lacho Ludwig at 10/26/2017 7:33 PM I saw and evaluated the patient. Discussed with the resident and agree with resident's findings and plan as documented in the resident's note. Adm with diaphragmatic hernia- This may be chronic Will review images when available and plan RX Lacho Ludwig MD HISTORY AND PHYSICAL EXAMINATION SERVICE DATE: 10/26/2017 SERVICE TIME: 5:28 PM PRIMARY CARE PHYSICIAN: Diana George CNP Subjective CHIEF COMPLAINT: Diaphragmatic hernia HPI: This is a 77 year old female with history of chronic abdominal pain and overuse of antinausea meds who presents as a direct admit from [facility] ED for right-sided diaphragmatic hernia. Pt states that she began to have flu-like symptoms as well as nausea/emesis one week ago. She was hospitalized for gastroenteritis and hypoxia and discharged after one day. Yesterday, she had acutely worsened RUQ pain that varied from cramping to stabbing. Also reports dizziness and mild shortness of breath. Last normal BM today. She has been previously worked up for this diaphragmatic hernia by Dr. Bar in [place], but decision made not to pursue operation due to anesthesia concerns and likelihood of post-op pain control issues. Workup at [facility] included CTA of chest (no PE) and labs significant for WBC 13.3, lipase 201. Normal results for the following: lactate, troponin, hepatic panel, PT/INR, Hgb, urinalysis. CT abdomen/pelvis showed large anterior right-sided diaphragmatic hernia with multiple distal small bowel loops, transverse colon, mesenteric vessels, and fat (and an incidental renal lesion c/f renal cell carcinoma - pt notified). Also of note, [facility] care team believes pt may need SNF at discharge for rehab. Physician also mentioned believe the patient also has a psychological overlay and fixates on her abdominal pain and seeks nausea and pain meds. History provided from patient and son as well as notes from [facility] ED. FUNCTIONAL STATUS: Mostly Independent PAST MEDICAL HISTORY Diagnosis Date - Acute, but ill-defined, cerebrovascular disease - Cardiomyopathy, nonischemic (HCC) - Essential hypertension, benign - GERD (gastroesophageal reflux disease) - Irritable bowel syndrome - Other and unspecified hyperlipidemia PAST SURGICAL HISTORY Procedure Laterality Date - APPENDECTOMY - LAPAROSCOPIC CHOLEYCYSTECTOMY Cholecystectomy, lap - REM LESION NEC,HND,SCAL 0.6-1.0CM 06/30/06 Exc. left neck francisco javier cyst - REMOVAL ADENOIDS,PRIMARY,<12 Y/O Adenoidectomy - REMOVAL OF TONSILS,<12 Y/O Tonsillectomy FAMILY HISTORY Problem Relation Age of Onset - Prostate Cancer Father - Colon Cancer Mother Social History Substance Use Topics - Smoking status: Never Smoker - Smokeless tobacco: Never Used - Alcohol use No Prescriptions Prior to Admission: cloNIDine HCl (CATAPRES) 0.1 mg tablet Take 0.1 mg by mouth. Take 1 half tablet Disp: Rfl: dicyclomine (BENTYL) 20 mg tablet Disp: Rfl: LORazepam (ATIVAN) 1 mg tablet Take 1 mg by mouth twice daily. Disp: Rfl: losartan (COZAAR) 100 mg tablet Take 100 mg by mouth once daily. Disp: Rfl: magnesium oxide (MAG-OX) 400 mg tablet Take 400 mg by mouth daily at bedtime. Disp: Rfl: minoxidil (LONITEN) 2.5 mg tablet Take 2.5 mg by mouth twice daily. Disp: Rfl: pantoprazole DR (PROTONIX) 20 mg tablet Take 20 mg by mouth once daily. Disp: Rfl: Pramipexole 0.75 mg tablet Take 0.75 mg by mouth daily at bedtime. Disp: Rfl: ondansetron (ZOFRAN) 4 mg tablet Take 1 tablet by mouth every 8 hours as needed. Disp: 30 tablet Rfl: 5 traZODone (DESYREL) 50 mg tablet Take 1-3 tablets by mouth daily at bedtime. Disp: 90 tablet Rfl: 1 simvastatin 40 mg tablet Take 40 mg by mouth daily at bedtime. Disp: Rfl: FLUoxetine (PROZAC) 20 mg capsule Take 60 mg by mouth once daily. Disp: Rfl: ASPIRIN 81 MG CHEWABLE TAB Take one(1) tablet daily. Disp: Rfl: 0 ALLERGIES No Known Allergies COMPLETE REVIEW OF SYSTEMS: PAIN ASSESSMENT: HISTORY OF CHRONIC PAIN: abdominal pain GENERAL: (+) weakness. (-) fevers, chills, weight loss, fatigue HEENT: Negative for frequent or significant headaches, No changes in hearing or vision, no nose bleeds or other nasal problems RESPIRATORY: occasional SOB. Negative for cough, hemoptysis, wheezing, COPD, dyspnea CARDIOVASCULAR: Negative for chest pain, leg swelling, hypertension, CHF or palpitations GI: See HPI : No history of dysuria, frequency or incontinence MUSCULOSKELETAL: Negative for joint pain or swelling, back pain or muscle pain PSYCH: See HPI ENDOCRINE: (+) DM. Negative for cold or heat intolerance, polyuria, polydipsia and goiter Objective PHYSICAL EXAM: Physical Exam Performed: GENERAL: Alert, no distress, cooperative HEENT: NCAT, no significant findings, EOMI, hearing grossly intact LUNGS: CTAB. Normal respiratory effort on 2L NC CARDIAC: Normal S1 and S2; no rubs, murmurs, or gallops ABDOMEN: soft, nondistended, minimally TTP in RUQ. No peritoneal signs, rebound, or guarding NEURO: motor/sensory grossly intact EXTREMITIES: Extremities normal, no deformities, edema, clubbing or skin discoloration. Good capillary refill. BP 150/70 Pulse 88 Temp (Src) 98.8 (Oral) Resp 22 SpO2 99% DATA: Diagnostic tests reviewed for today's visit: Outside chart from [facility] reviewed. - see HPI for significant findings Assessment/Plan 77 yo female with right-sided diaphragmatic hernia. Currently asymptomatic with the exception of abdominal pain - NPO/IVF - pain/nausea control - AM labs - ISS - will review imaging further before determining need for possible operative intervention Discussed with Dr. Ludwig SIGNATURE: Elliot Strickland MD PATIENT NAME: Vee Hyatt DATE: October 26, 2017 TIME: 5:24 PM PAGER/CONTACT #: [phone] DISCHARGE SUMMARY Observed: 10/26/2017 Status: F Source: [facility] 4:16 PM [facility] REPOSITORY [facility] Medical Records Department [address] [place] [address] Discharge Summary 10/26/17 1308 MR#: [id number] Acct: [id number] Name: VEE HYATT Rep #: [id number] : [id number] From: Deisy Garvey [employer] PCP: Jose L Valenzuela MD Status: DIS AKIRA Y Location: [place] [address] ADDENDUM by Maddy Bolaños on 10/26/17 at 1616 Code Visit ATTENDING PHYSICIAN NOTE: I have seen and examined the patient independently and agree with the assessment, plan, history per Deisy Garvey as noted. Discharge Diagnoses: (1) Acute Abdominal Pain suspected secondary to large anterior diaphragmatic hernia containing multiple distal small bowel loops, transverse colon, and mesenteric vessels and fat (2) Left Upper Pole Incidental 1.7 cm Lesions, Suspicious for Renal Cell Carcinoma (3) CAD (4) HTN (5) HLD (6) Diabetes mellitus type II (7) Overweight (8) Hx Brain Aneurysm (9) Chronic Hyponatremia (10) Depression and Anxiety (11) Tardive Dyskinesia Discharge Summary: The patient is a 77 y/o F w/ PMHx: CAD, HTN, HLD, Diabetes mellitus type II, Overweight, Hx Brain Aneurysm, Chronic Hyponatremia, Depression and Anxiety, Hx diaphragmatic hernia, Tardive Dyskinesia secondary to prior psychiatric regimen who presented to the [facility] ED on 10/26/17 early AM with ongoing severe, > epigastric and BL upper abdominal quadrants, continuous for several hours with associated nausea with recent flu-like illness the week prior including diarrhea which has since resolved. In the ED upon presentation work-up included T 98, HR 88, BP initially 188/105, RR 32, 90% with severe pain-->improved after treatment in the ED w/ HR 97, BP 153/85, RR 21, 98% on RA, CBC w/ WBC 13.3, Hgb 13.3, Plts 281 with increased absolute neutrophils, unremarkable coags, CMP w/ glucose 146 otherwise not marked appearing, lipase 483, LA 0.6, EKG without acute findings, CTPA w/ no evidence of acute PE, bibasilar atelectasis, large anterior diaphragmatic hernia with small bowel loops, colonic segments and mesenteric fat radiating into the right anterior thoracic cavity with CTA A/P w/ again large anterior diaphragmatic hernia containing multiple distal small bowel loops, transverse colon, mesenteric vessels and fat, 1.7 cm enhancing exophytic lesion arising off the posterior left upper renal pole concerning for renal cell carcinoma, nonobstructing 4 mm mid left renal colliculi, simple appearing right renal cyst, calcified fibroid arising off the uterine fundus. The patient was admitted secondary to ongoing pain and nausea, given findings on CT scan and no other identifiable etiology for ongoing pain, General Surgery was consulted and evaluated patient with recommendation for transfer to Tertiary Facility for evaluation per Cardiothoracic surgery. During admission prior to transfer Urology was also consulted for evaluation and follow-up for L renal mass suspicious for renal cell carcinoma with following transfer decision recommendation to follow-up with Urology upon discharge from acute abdominal pain felt secondary to severe diaphragmatic hernia once appropriately resolved. Given severity of pain, patient maintained NPO, IV Famotidine, IVFs, PRN pain regimen, PRN anti-emetics while awaiting transfer to [facility] who accepted patient. DAY OF DISCHARGE PROGRESS NOTE: Subjective: Patient with ongoing abdominal discomfort since admission this AM with nausea without emesis. She has several complaints including timeliness of nurse light being answered. Patient denies fever, chills, emesis, chest pain or dyspnea. Patient agreeable to discharge to [facility] for further evaluation of abdominal pain with concern for worsened diaphragmatic hernia as etiology which was arranged. Objective: T 98.7, heart rate 96, BP 142/71, respiratory rate 24, 96% on 4 L nasal cannula. Physical Examination: General: awake, alert, oriented x 3 and cooperative, seated upright in the bed, NAD but irritable, anxious appearing. Skin: normal color, turgor, no icterus, cyanosis. HEENT: AT/NC, EOMI, PERRLA, mildly dry MM. Lungs: Decreased effort, diminished BL bases, no rales, ronchi or wheezing; Heart: Regular rate and rhythm; no gallop, rub audible. Abdomen: soft, notable discomfort w/ BL UQ and epigastric region palpation, ND, hypoactive BS. Extremities: no cyanosis, clubbing, or edema. Neurological: patient awake, alert, oriented x 3; cognitive function appears intact upon questioning,; pupils equally reactive to light and accomodation; cranial nerves II-XII grossly normal, moving all 4 extremities, strength mildly to moderately globally decreased secondary to acute presentation. Psychiatric: affect appears irritable and anxious appearing, no acute evidence of depressive feelings. Assessment and Plan: Please see hospital summary above. OBSV E AND M: [id number] Observ/hosp same date L3 10/26/17 1616 <Electronically signed by Maddy Bolaños > Date Maddy Bolaños cc: AFTER SCHOOL CAREGIVERBrandie Garvey; Maddy Bolaños; Jose L Valenzuela MD * Signed Discharge Date and Diagnosis Date of Admission: 10/26/17 Date of Discharge: 10/26/17 - Primary Discharge Diagnosis Active and Suspected Problems 1. Acute on chronic abdominal pain-secondary to large anterior diaphragmatic hernia containing multiple distal small bowel loops, transverse colon, and mesenteric vessels and fat. 2. New finding of 1.7 cm lesion of the left upper renal pole concerning for renal cell carcinoma 3. Acute hypoxia - Secondary Discharge Diagnosis Chronic Problems Hx of appendectomy (Chronic) Benign essential HTN (Chronic) Depression (Chronic) HLD (hyperlipidemia) (Chronic) Overweight (BMI 25.0-29.9) (Chronic) CAD (coronary artery disease) (Chronic) Diabetes mellitus, type II (Chronic) Traumatic closed nondisplaced fracture of neck of left femur (Chronic) Status post closed reduction with internal fixation (Chronic) left femur 06/22, Dr Spears, [facility] Tinea unguium (Chronic) Dyskinesia, tardive (Chronic) Takatsuki syndrome (Chronic) Brain aneurysm (Chronic) Takotsubo syndrome (Chronic) Hypertension (Chronic) Hospital Course and Treatment Imaging Results: Diagnostic Data Chest CTA 10/26/17 23:42 IMPRESSION: 1. No evidence of acute pulmonary embolism or aortic pathology. 2. Bibasilar atelectasis. 3. Large anterior diaphragmatic hernia with small bowel loops, colonic segments and mesenteric fat radiating into the right anterior thoracic cavity. Electronically Signed: Richard Garcia MD at 1:50 EST Tel , Service support , Abdomen/Pelvis CTA 10/26/17 23:43 IMPRESSION: 1. Large anterior diaphragmatic hernia containing multiple distal small bowel loops, the transverse colon, and mesenteric vessels and fat. 2. 1.7 cm enhancing exophytic lesion arising off the posterior left upper renal pole, concerning for renal cell carcinoma. 3. Nonobstructing 4 mm mid left renal calculus. 4. Simple appearing right renal cyst. 5. Calcified fibroid arising off the uterine fundus. Electronically Signed: Richard Garcia MD at 2:00 EST Tel , Service support , Dr. Trinidad- Surgery Dr. Urena- Urology Operations: None Procedures: None Summary of Care Provided: Patient is a 77-year-old female admitted 10/26/17 due to generalized weakness and abdominal pain. She has a past medical history of hypertension, hyperlipidemia, depression, CAD, type 2 diabetes mellitus, tardive dyskinesia. 1. Acute on chronic abdominal pain-secondary to large right diaphragmatic hernia as demonstrated on CT of abdomen. CT of abdomen showed large anterior diaphragmatic hernia containing multiple distal small bowel loops, transverse colon, and mesenteric vessels and fat. Surgery evaluated patient and recommended transfer for cardiothoracic surgery for repair. Patient was previously seen at [facility] but was told intervention was not able to be completed at their facility due to complicated case. [facility] willing to accept patient and patient is stable for transfer. CT of abdomen also showed lesion on the left kidney which is suspicious for renal cell carcinoma. This will also need further evaluated. 2. Generalized weakness-suspect secondary to poor oral intake as a result of #1. 3. Elevated lipase, mild-resolved. 4. Depression-continue home medication regimen. 5. Hypertension-stable, continue home regimen. 6. Hyperlipidemia-continue statin. 7. CAD-continue statin. Not on aspirin or beta-carlton. 8. Type 2 diabetes mellitus-not on home regimen. Previous A1c in 2015 5.5%. 9. Tardive dyskinesia-secondary to previous psychiatric medications. 10. Acute hypoxia-chest CTA completed showed no evidence of acute pulmonary embolism, bibasilar atelectasis, large anterior diaphragmatic hernia as noted above. Suspect large hernia is contributing to acute hypoxia. Recent echocardiogram showed an estimated ejection fraction of 75%, stage I diastolic dysfunction, RVSP estimated to be 48, mild pulmonary hypertension. Continue oxygen supplementation. General: Alert, Oriented x3, Cooperative, No apparent distress HEENT: Atraumatic, PERRLA, EOMI, Normocephalic Oral: Dry Mucosa Neck: Supple, No JVD, Negative Carotid Bruits Lungs: Clear to auscultation, Normal air movement Cardiovascular: Regular rate, Regular Rhythm, Normal S1, Normal S2, No murmurs Abdomen: Bowel Sounds Present, Soft, Non-Distended, Tender - Bilateral upper abdomen Extremities: No edema, Capillary Refill Less than 3 Seconds Skin: No rashes, No breakdown Musculoskeletal: No Tenderness to Palpation of Joints or Extremities Neurological: Cranial nerves II-XII grossly intact, Neuro grossly intact Psych/Mental Status: Normal Affect, Appropriate Patient seen and examined prior to discharge. Physical assessment as noted above. Patient stable for transfer to acute care facility. This patient was seen by MAXIMILIANO Pendleton under the supervision of Dr. Bolaños. Home Medications: Medications to take at Discharge Clonidine HCl 0.05 tab PO BID 03/17/17 Fluoxetine [Prozac] 60 mg PO DAILY 03/17/17 Furosemide [Lasix] 20 mg PO DAILY 03/17/17 Lorazepam [Ativan] 1 mg PO BID 03/17/17 Losartan Potassium 100 mg PO DAILY 03/17/17 Magnesium Oxide [Mag-Ox 400] 400 mg PO QHS 03/17/17 Pantoprazole Sodium [Protonix] 20 mg PO DAILY 03/17/17 Pramipexole Di-HCl [Pramipexole Dihydrochloride] 0.75 mg PO QHS 03/17/17 Simvastatin 40 mg PO QHS 03/17/17 Spironolactone 25 mg PO DAILY 03/17/17 Dicyclomine HCl 20 mg PO DAILY PRN 10/19/17 Minoxidil [Loniten] 2.5 mg PO BID 10/19/17 Primary Care Physician: Jose L Valenzuela MD [Primary Care Provider] - Disposition: Acute care Hospital Minutes spent on discharge:: 35 Patient Condition:: Stable Meaningful Use Info Meaningful Use Diagnoses (Choose all that apply): None applicable 10/26/17 1434 <Electronically signed by Deisy Garvey AFTER SCHOOL CAREGIVER-C> Date Deisy Garvey AFTER SCHOOL CAREGIVER-C 10/26/17 1559<Electronically signed by Maddy Bolaños > Cosigner Signature (if applicable): Date Maddy Bolaños CC: AFTER SCHOOL CAREGIVER-C Deisy Garvey; Maddy Bolaños; Jose L Valenzuela MD Signed Observed: 10/26/2017 Status: F Source: SUSSY RESPIRATORY PANEL 11:07 AM [facility] MOLECULAR REPOSITORY RP PANEL ADENOVIRUS Not Detected HUMAN METAPHNEUMO Not Detected INFLUENZA A Not Detected INFLUENZA A (SUBTYPE H1) Not Detected INFLUENZA A (SUBTYPE H3) Not Detected INFLUENZA B Not Detected PARAINFLUENZA 1 Not Detected PARAINFLUENZA 2 Not Detected PARAINFLUENZA 3 Not Detected PARAINFLUENZA 4 Not Detected RHINOVIRUS Not Detected RSV A Not Detected RSV B Not Detected NAAT METHOD Testing was performed using nucleic acid amplification Performed By: #### [id number] #### [facility] [address], [address] LIPASE Collected: 10/26/2017 Status: F Source: SUSSY 9:15 AM [facility] REPOSITORY TYPE CODE TESTS RESULT OUT OF RANGE REFERENCE UNITS LAB L501.2450 73-393 U/L Normal LIPASE 201 Performed By: #### L501.2450 #### [facility] [address] [place], [place], [address] EMERGENCY DEPARTMENT Observed: 10/26/2017 Status: F Source: HEAD WATERS SUMMARY 5:02 AM [facility] REPOSITORY [facility] Medical Records Department [address] [place] [address] Emergency Department Summary 10/26/17 0306 MR#: [id number] Acct: [id number] Name: VEE HYATT Rep #: [id number] : 1940 77 From: Immanuel Gonzales MD PCP: Jose L Valenzuela MD Status: ADM AKIRA - ER Visit Summary Date of Service: 10/26/17 Chief Complaint: Abdominal pain History of Present Illness: The patient is a 77 F with abdominal pain today for several hours. The pain has been continuous. The pain is mostly over her upper abdomen. She has also been having nausea. She had some diarrhea last week and a recent flu infection. The patient has a history of coronary disease, hypertension, diabetes, hyperlipidemia, brain aneurysm, hyponatremia, depression, appendectomy, hip fracture, and diaphragmatic hernia. Physical Examination: Patient is hypertensive 189/105. Otherwise vital signs are unremarkable. Her pulse ox is in the 90-92% range on room air. Patient appears very uncomfortable and is tearful. Heart regular. Lungs show diminished sounds throughout. Abdomen is diffusely tender with some mild guarding. Skin appears normal in color. She is alert and oriented. Test Results: EKG showed sinus rhythm at a rate of 89. There are nonspecific ST and T-wave changes. No sign of acute ischemia or infarction. Lab work shows a white count of 13.3. Glucose 146. Lipase 43. Hepatic panel normal. INR and PTT normal. Troponin normal. Lactate normal. CT shows a left renal mass concerning for carcinoma. There was no PE or dissection noted. She does have a diaphragmatic hernia and a uterine fibroid is seen on her prior imaging. Emergency Department Course and Treatment: Patient had fluids and pain medicine while awaiting results. Her symptoms and her vital signs improved. Patient had borderline low oxygen levels. This is not new. This has been attributed to atelectasis from her diaphragmatic hernia. Her CT shows a diaphragmatic hernia. This is not new. She saw a surgeon in [place] and at this time she is not a surgical candidate. Based on her imaging and symptoms. She was not aware of the renal mass. Patient had fluid hydration and additional pain medicine. She also received Phenergan. Her symptoms and vital signs improved. She was requesting discharge. Her son had suggested that she needs to be admitted for therapy to get her strength back and so that she can get hydrated and have time to eat. The patient did not want this. I spoke with the hospitalist who saw her the last time she was admitted. The diaphragmatic hernia seems to be a stable issue. Again she is not a surgical candidate at this time. She was seen by pulmonology. She was also discussed with her PCP during the previous visit. The hospitalist did not feel that any of her symptoms or findings could be improved with hospitalization. I suggested that she may need to go to a nursing or rehab facility. The patient refused. Patient was treated with additional fluids. She had Phenergan. She was unable to ambulate. I called the hospitalist for admission. Treatment Plan: As above Disposition: Admission Impression: 1. Abdominal pain 2. Nausea 3. Left renal mass concerning for renal cell carcinoma This note was generated with [employer] dictation software. It may contain incorrect words, spelling, and punctuation that were not noted in review of the chart prior to signing ED Disposition - Plan for ED Patient: Chief Complaint: Abd Pain Referrals: Jose L Valenzuela MD [Primary Care Provider] - What to do if you have Problems For any increased pain, shortness of breath, bleeding, nausea or vomiting, chest pain, or any unexpected problems, contact your Primary Care Provider. Call [facility] ([phone]) or report to the closest Emergency Room. Call 911 if necessary. 10/26/17 2376 <Electronically signed by Immanuel Gonzales MD> Date Immanuel Gonzales MD Cosigner Signature (If Indicated): Date CC: Jose L Valenzuela MD HISTORY AND PHYSICAL Observed: 10/26/2017 Status: F Source: HEAD WATERS EXAM 5:02 AM [facility] REPOSITORY [facility] Medical Records Department [address] [place] [address] History and Physical 10/26/17 7549 MR#: [id number] Acct: [id number] Name: VEE HYATT Rep #: [id number] : 1940 77 From: Rommel Hansen DO PCP: Jose L Valenzuela MD Status: ADM AKIRA Y Location: MS3 [id number] Problem List (1) Generalized weakness Status: Acute (2) Abdominal pain Status: Acute Qualifiers: Abdominal location: lower abdomen, unspecified Qualified Code(s): R10.30 - Lower abdominal pain, unspecified History of Present Illness Date of Admission: 10/26/17 Chief Complaint: Generalized weakness, generalized abdominal pain The patient is a 77 year old F who was seen in the emergency room at [facility] with a chief complaint of abdominal pain which she states worsened on 10/25/17, she has a history of chronic abdominal pain and a large diaphragmatic hernia on the right side. Patient was recently hospitalized here at [facility] for gastroenteritis and hypoxia, she returned home the next day. During that admission I cared for the patient and I talked with the patient's primary care physician who confirms that the patient has a history of chronic abdominal pain and overuse of antinausea medications. Patient was seen in consultation and [place] by a surgeon for repair of her diaphragmatic hernia in the past but it was decided that postop complications would be too great to repair the diaphragmatic hernia. At the time of triage last night in the emergency room, patient complained of upper abdominal pain-when I examined her this morning she stated that the abdominal pain was lower abdominal pain. Workup in the emergency room included a CTA of the abdomen which showed the known diaphragmatic hernia on the right, there is also a lesion on the left upper kidney that was suspicious for carcinoma. Pancreas appeared unremarkable. Patient also had a CT of the chest which was unremarkable except for the presence of the right sided diaphragmatic hernia. Labs were obtained, white blood cell count was slightly elevated at 13.3 and lipase was slightly elevated at 483. Patient was given IV pain medications and antinausea medications in the emergency room. Patient's son was with the patient during her emergency room visit, he was told that she could be discharged to home but unfortunately the patient was not able to get up and ambulate. I went in and talk with both the patient and her son and told her that she would most probably need to go to a skilled care facility for rehab, I have my doubts that she is able to take care of herself at home and her son does not live with her. Her son became upset that I mentioned a intermediate, he felt that if she went to a intermediate she would take it as being a permanent placement-I insisted that this would not be the case. Patient would consider going to TCU-she has been there before for rehab. Patient will be placed in observation status for generalized weakness, I do not feel she has pancreatitis, I do not feel her abdominal pain is out of the ordinary as she has frequent abdominal pain. I believe the patient also has a psychological overlay and fixates on her abdominal pain and seeks nausea and pain meds. Past Medical History Past Medical History (Chronic Problems): Chronic Problems Hx of appendectomy (Chronic) Benign essential HTN (Chronic) Depression (Chronic) HLD (hyperlipidemia) (Chronic) Overweight (BMI 25.0-29.9) (Chronic) CAD (coronary artery disease) (Chronic) Diabetes mellitus, type II (Chronic) Traumatic closed nondisplaced fracture of neck of left femur (Chronic) Status post closed reduction with internal fixation (Chronic) left femur 06/22, Dr Spears, [facility] Tinea unguium (Chronic) Dyskinesia, tardive (Chronic) Takatsuki syndrome (Chronic) Brain aneurysm (Chronic) Takotsubo syndrome (Chronic) Hypertension (Chronic) Allergies No Known Allergies Allergy (Verified 03/17/17 10:29) Home Medications: Ambulatory Orders Medication Instructions Recorded Surgical History: appendectomy, cholecystectomy, herniorrhaphy, tonsillectomy, - - 06/22/15 left hip CRIF Psychiatric History: Anxiety, Depression IMPORT EXPORT CLERK History: No pertinent IMPORT EXPORT CLERK history Lives: Alone Smoking Status: Never smoker Tobacco Use: Non-smoker Alcohol: None Drugs: None - *Family History Maternal History Items: Cancer - age 55, colon Paternal History Items: Cancer - in metastatic prostate Offspring History Items: - - 2 children Review of Systems Constitutional: Reports: Weakness. Denies: Anorexia, Chills, Fever, Night Sweats, Malaise, Weight Change, Fatigue Eyes: Denies: Blurred vision, Cataracts, Conjunctivae Inflammation, Double vision, Drainage HEENT: Denies: Difficulty Swallowing, Dysphasia, Ear Pain, Eye Pain, Hearing Changes, Nasal bleeding, Nasal Congestion, Post Nasal Drip Cardiovascular: Denies: Chest Pain, Claudication, Chest Pressure, Chest Tightness, Edema, Heaviness, Palpitations, Paroxysmal Noc. Dyspnea, Syncope Respiratory: Denies: Cough, Hemoptysis, Pleuritic Pain, Shortness of Breath, Shortness of breath at rest, Shortness of breath upon exertion, Sputum production, Wheezing Gastrointestinal: Reports: Abdominal Pain. Denies: Constipation, Diarrhea, Hematemesis, Hematochezia, Nausea, Melena, Vomiting Genitourinary: Denies: Dysuria, Frequency, Hematuria, Hesitancy, Nocturia, Retention, Urgency Gynecological: Denies: Breast symptoms Musculoskeletal: Denies: Back Pain, Foot Pain, Hand Pain, Joint Pain, Joint stiffness, Joint swelling, Joint Tenderness, Leg Pain Skin: Denies: Dryness, Jaundice, Pruritis, Rash Neurological: Denies: Blurred vision, Double vision, Slurred speech, Difficulty swallowing, Focal weakness, Headaches, Numbness, Tingling Psychiatric: Denies: Anxiety, Depression, Homicidal Ideations, Suicidal Ideations Endocrine: Denies: Change in Body Habitus, Heat/ Cold Intolerance, Polydipsia, Polyuria Hematologic/ Lymphatic: Denies: Adenopathy, Anemia, Easy Bruising, Easy Bleeding, Petechiae, Purpura VTE Information - Inpt Only VTE Present on Admission: No VTE Mechan Device Prophylaxis: None VTE Pharm Prophylaxis ordered?: Yes Patient Problems: Active and Suspected Problems Generalized weakness (Acute) Abdominal pain (Acute) - Physical Exam General: Alert, Oriented x3, Cooperative, No apparent distress, Well developed, Well nourished HEENT: Atraumatic, PERRLA, EOMI, Normocephalic Oral: Moist Mucosa Neck: Supple, No JVD, Negative Carotid Bruits, No Nuchal Rigidity, Trachea Midline, Thyroid Normal Size and Texture Lungs: Clear to auscultation, Normal air movement, No rhonchi, No wheeze, No rales Cardiovascular: Regular rate, Regular Rhythm, Normal S1, Normal S2, No murmurs, No Ectopic Activity, PMI Normal, No rub noted, No Gallop Abdomen: Bowel Sounds Present, Soft, Non Tender, Non-Distended, No hernias noted Extremities: No clubbing, No cyanosis, Capillary Refill Less than 3 Seconds, Edema - Generalized lower leg edema is noted bilaterally which is +2-+3 mm Skin: No rashes, No breakdown Musculoskeletal: No Tenderness to Palpation of Joints or Extremities Neurological: Cranial nerves II-XII grossly intact, Neuro grossly intact, Sensory exam intact to light touch and pain Psych/Mental Status: Appropriate, Flat Affect Vital Signs Temp Pulse Resp BP Pulse Ox 98 F 95 17 165/77 H 97 10/25/17 23:28 10/26/17 04:18 10/26/17 04:18 10/26/17 04:18 10/26/17 04:18 Oxygen Delivery Method Room Air Assessment/Plan Active and Suspected Problems Generalized weakness (Acute) Abdominal pain (Acute) #1 generalized weakness-probably secondary to deconditioning and possibly the effects of IV pain medications and anti-emetics administered in the emergency room-patient will be placed in observation status on MedSurg, she will be evaluated by PT and OT to see if she qualifies for further skilled care #2 acute on chronic abdominal pain-I do not feel that this is significant in this patient as she has frequent episodes of abdominal discomfort. I feel that the administration of IV Phenergan should be kept to a minimum while the patient is hospitalized, I have written for IV Zofran for nausea. Patient is on Bentyl once a day, I have stopped this medication #3 elevated lipase-I do not feel this is significant, lipase will be rechecked #4 lesion left upper kidney-possibly renal cancer, this will need to be rechecked with a contrasted CAT scan #5 anxiety disorder #6 generalized depression #7 tardive dyskinesia from previous psych meds ] #8 pulmonary hypertension-at the patient's last hospitalization, she was seen by pulmonary medicine and an echocardiogram was obtained which showed elevated pulmonary artery pressures, she is due to see pulmonary medicine and follow-up, it is a feeling of pulmonary medicine that the patient's right diaphragmatic hernia is contributing to the pulmonary hypertension or she may have underlying sleep apnea. #9 large right diaphragmatic hernia-again, in a patient this age, surgical repair would be extremely risky, patient and patient's son have decided not to have this repaired at this time after talking with a surgeon in [place]. Code Visit OBSV E AND M: [id number] Initial observation care L3 10/26/17 0502 <Electronically signed by Rommel Hansen DO> Date Rommel Hansen DO Cosigner Signature: Date (if applicable) CC: Rommel Hansen DO; Jose L Valenzuela MD Signed URINALYSIS, COMPLETE Collected: 10/26/2017 Status: F Source: SUSSY 12:45 AM [facility] REPOSITORY Order Comment: Order Date: 10/25/17 How was Urine Obtained? CLEAN CATCH TYPE CODE TESTS RESULT OUT OF RANGE REFERENCE UNITS LAB L400.3000 Yellow COLOR Normal Yellow LAB L400.3050 Clear Normal CLARITY Clear LAB L400.3200 Normal mg/dl Normal GLUCOSE, UR Normal LAB L400.3300 Negative mg/dL Normal BILIRUBIN URINE Negative LAB L400.3400 Negative mg/dl Normal KETONE UR Negative LAB L400.3465 1.002-1.030 Normal SP.GR. DIPSTX 1.010 LAB L400.3550 5.0 - 8.0 pH UR Normal 6.5 LAB L400.3600 Negative mg/dl High PROT 30 DIPSTX LAB L400.3700 Normal mg/dl Normal UROBILI Normal LAB L400.3750 Negative Normal NITRITE UR Negative LAB L400.3780 Negative /ul High 10 OCCULT BLOOD-UR LAB L400.3800 Negative /ul High LEUK 25 ESTERASE LAB L400.4050 0-5 /hpf WBC 0 Normal SEEN LAB L400.4100 0-5 /hpf 0 Normal RBC-UA SEEN LAB L400.4150 5-10 /hpf SQUAM 0 Normal EPI SEEN LAB L400.4300 None Seen /hpf 0 Normal BACTERIA SEEN LAB L400.4350 <or=2+ /hpf 0 Normal MUCUS, URINE SEEN Performed By: #### L400.0001 #### [facility] [address] [place], [address] PROTHROMBIN TIME W/INR Collected: 10/26/2017 Status: F Source: [place] 12:30 AM [facility] REPOSITORY Order Comment: REDRAW. PREVIOUS SPECIMEN REJECTED DUE TO HEMOLYSIS >4+. 10/26/17 0004 Carlene George. TYPE CODE TESTS RESULT OUT OF RANGE REFERENCE UNITS LAB L300.4150 11.7-14.9 SECONDS Normal PROTIME 12.6 LAB L300.4200 Normal INR 1.0 Performed By: #### L300.3900, L300.4310 #### [facility] [address] [place], [address] PARTIAL THROMBOPLAST Collected: 10/26/2017 Status: F Source: [place] TIME 12:30 AM [facility] REPOSITORY Order Comment: REDRAW. PREVIOUS SPECIMEN REJECTED DUE TO HEMOLYSIS >4+. 10/26/17 0004 Carlene George. TYPE CODE TESTS RESULT OUT OF RANGE REFERENCE UNITS LAB L300.4310 24.1-36.2 Seconds Normal PTT 24.2 Performed By: #### L300.3900, L300.4310 #### [facility] [address] [place], [address] LACTIC ACID Collected: 10/26/2017 Status: F Source: [place] 12:30 AM [facility] REPOSITORY Order Comment: REDRAW. PREVIOUS SPECIMEN REJECTED DUE TO HEMOLYSIS >4+. 10/26/17 0004 Carlene George. Yes/No query for Sepsis Lactate Rule Y TYPE CODE TESTS RESULT OUT OF RANGE REFERENCE UNITS LAB L503.6005 0.4-2.0 mmol/L Normal LACTIC ACID 0.6 Performed By: #### L503.6005 #### [facility] [address] [place], [address] CT ANGIO ABD AND Observed: 10/25/2017 Status: F Source: [place] PEL W/O AND W/DYE 11:44 PM [facility] REPOSITORY [facility] Imaging Services [address] [place] [address] CT ANGIO ABD AND PEL W/O AND W/DYE MR#: [id number] Acct: [id number] Name: VEE HYATT Rep #: [id number] : 1940 F 77 From: Richard Garcia MD PCP: Jose L Valenzuela MD Status: REG ER Study: CT ANGIO ABD AND PEL W/O AND W/DYE Date of Exam: 10/26/17 Exam# [id number] Ordering Dr: Immanuel Gonzales MD STUDY: CTA OF THE ABDOMEN AND PELVIS REASON FOR EXAM: Female, 77 years old. RADIATION DOSAGE (If Supplied By Facility): CTDIvol = ( 16.26 ) mGy, DLP = ( 1124.66 ) mGycm TECHNIQUE: Axial CT angiography multi-detector data acquisition was obtained from the lung bases to the normal proximal thighs following intravenous administration of 100ML ml of Isovue 370 contrast. Axial images and MIP images were reconstructed from the axial data set. Post-processing of the angiographic images was performed, with multiplanar reformation and 3D reconstruction. Individualized dose optimization techniques were used for this CT. TECHNICAL QUALITY: Good COMPARISON: None. Descriptors of Narrowing: None (0%) Mild (< 50%) Moderate (50-70%) Severe (70-90%) Subtotal/Total Occlusion (90-100%) Non-Evaluable (technically non-diagnostic FINDINGS: Angiographic findings: Proximal Abdominal aorta: No demonstrated narrowing. Celiac and superior mesenteric arteries: No demonstrated narrowing. Inferior mesenteric artery: No demonstrated narrowing. Right renal artery(arteries): No demonstrated narrowing. Left renal artery(arteries): Mild proximal narrowing Infrarenal abdominal aorta: No aneurysmal dilatation. Right common iliac artery: No demonstrated narrowing. Right external iliac artery: No demonstrated narrowing. Right internal iliac artery: No demonstrated narrowing. Left common iliac artery: No demonstrated narrowing. Left external iliac artery: No demonstrated narrowing. Left internal iliac artery: No demonstrated narrowing. Right common femoral artery: No demonstrated narrowing. Left common femoral artery: No demonstrated narrowing. Nonangiographic findings: Large anterior diaphragmatic hernia with small bowel and colonic mesenteric fat herniating into the right anterior thoracic cavity. Liver is normal. Gallbladder surgically absent. Biliary duct dilatation. Spleen is normal. Pancreas is normal bilateral adrenal glands are normal. Exophytic hypoattenuated lesion arising off the posterior left upper renal pole measuring 1.7 cm. Hypoattenuated lesions arising from the right kidney. 4 mm calculus in the mid left renal pelvis. No hydronephrosis or hydroureter. Stomach is normal. Proximal small bowel loops are normal. Distal small bowel loops extend up into the right anterior diaphragmatic hernia. Appendix is not definitively visualized. The majority of the transverse colon is seen in the anterior diaphragmatic hernia. Mild fecal impaction in the rectosigmoid colon. Urinary bladder is normal. Large calcified fibroid arising off the uterine fundus measuring 9.4 cm. No free pelvic fluid. CT/CT ANGIO ABD AND PEL W/O AND W/DYE IMPRESSION: 1. Large anterior diaphragmatic hernia containing multiple distal small bowel loops, the transverse colon, and mesenteric vessels and fat. 2. 1.7 cm enhancing exophytic lesion arising off the posterior left upper renal pole, concerning for renal cell carcinoma. 3. Nonobstructing 4 mm mid left renal calculus. 4. Simple appearing right renal cyst. 5. Calcified fibroid arising off the uterine fundus. Electronically Signed: Richard Garcia MD at 2:00 EST Tel , Service support , CC: Immanuel Gonzales MD; Jose L Valenzuela MD Legal Recovery Specialist: Signed CTA CHEST W/WO Observed: 10/25/2017 Status: F Source: [place] CONTRAST 11:42 PM [facility] REPOSITORY [facility] Imaging Services [address] [place] [address] CTA Chest W/WO Contrast MR#: [id number] Acct: [id number] Name: VEE HYATT Rep #: [id number] : 1940 F 77 From: Richard Garcia MD PCP: Jose L Valenzuela MD Status: REG ER Study: CTA Chest W/WO Contrast Date of Exam: 10/26/17 Exam# [id number] Ordering Dr: Immanuel Gonzales MD STUDY: CTA CHEST REASON FOR EXAM: Female, 77 years old. 28 RADIATION DOSAGE (If Supplied By Facility): CTDIvol = ( 16.26 ) mGy, DLP = ( 1124.66 ) mGycm TECHNIQUE: The examination was performed with the intravenous administration of 100ML ml of Isovue 370 contrast material. Post-processing of the angiographic images was performed, with multiplanar reformation and 3D reconstruction. Individualized dose optimization techniques were used for this CT. COMPARISON: None. FINDINGS: Normal enhancement of the main pulmonary artery and right and left pulmonary arteries. Normal enhancement of the bilateral peripheral pulmonary arteries. There is no demonstrated pulmonary embolism. Thoracic aorta demonstrates no aneurysmal dilatation or evidence of dissection.. Borderline cardiomegaly. No pericardial effusion. Shotty mediastinal and hilar lymph nodes. Normal visualized trachea and bronchi. Bibasilar atelectasis. Normal pulmonary parenchyma. No pleural effusion or pneumothorax. Normal chest wall structures. There are degenerative changes of thoracic spine. There is a large anterior diaphragmatic hernia with small bowel loops, colonic segments all herniating up into the right anterior thoracic cavity. CT/CTA Chest W/WO Contrast IMPRESSION: 1. No evidence of acute pulmonary embolism or aortic pathology. 2. Bibasilar atelectasis. 3. Large anterior diaphragmatic hernia with small bowel loops, colonic segments and mesenteric fat radiating into the right anterior thoracic cavity. Electronically Signed: Richard Garcia MD at 1:50 EST Tel , Service support , CC: Immanuel Gonzales MD; Jose L Valenzuela MD Legal Recovery Specialist: Signed CBC W/DIFF, AUTOMATED Collected: 10/25/2017 Status: F Source: [place] 11:35 PM [facility] REPOSITORY TYPE CODE TESTS RESULT OUT OF RANGE REFERENCE UNITS LAB L100.1000 4.4-11.0 K/mm3 High WBC 13.3 LAB L100.1200 4.2-5.4 M/mm3 Normal RBC 4.45 LAB L100.1300 12.0-15.0 g/dl Normal HGB 13.3 LAB L100.1400 37-47 % Normal HCT 39.2 LAB L100.1500 81-99 fL Normal MCV 88.1 LAB L100.1600 27.0-32.0 pg Normal MCH 29.9 LAB L100.1700 32-36 g/gl Normal MCHC 33.9 LAB L100.1810 11.6-14.6 % Normal RDW CV 13.5 LAB L100.1820 35.1-43.9 fl Normal RDW SD 42.8 LAB L100.1900 150-450 K/mm3 Normal PLT 281 LAB L100.2000 6.2-12.0 fl Normal MPV 8.5 LAB L100.2100 47-70 % Normal NEUT% 58.9 LAB L100.2200 19-41 % Normal LY% 32.9 LAB L100.2300 0-10 % Normal MONO% 4.4 LAB L100.2400 0-5 % Normal EO% 2.9 LAB L100.2500 0-1 % Normal BASO% 0.4 LAB L100.2550 0.0-0.9 % Normal IM GRAN % 0.500 Result Comment: IG% - Immature Granulocytes (promyelocytes, myelocytes and metamyelocytes) > 1% indicates that a LEFT SHIFT is Present. LAB L100.2620 2.0-7.7 X10 3/uL High Absolute Neut 7.8 LAB L100.2720 0.83-4.51 X10 3/ul Normal Absolute Lymph 4.37 Performed By: #### L100.0100 #### [facility] [address] [place], [address] COMPREHENSIVE METABOLIC Collected: 10/25/2017 Status: F Source: [facility] 11:35 PM [facility] REPOSITORY Order Comment: 'TROP' Serial specimen #1, #2, #3, or #4: 1 TYPE CODE TESTS RESULT OUT OF RANGE REFERENCE UNITS LAB L501.0100 70-110 mg/dL High GLU 146 Result Comment: Fasting Glucose result greater than or equal to 126 mg/dL suggests DIABETES MELLITUS per A.D.A. criteria. LAB L501.1000 7-18 mg/dL Normal BUN 14 LAB L501.1100 0.55-1.02 mg/dL Normal CREAT,SERUM 0.90 Result Comment: The validity of the calculated GFR AND GFRAA in patients over 70 years has not been determined. Clinical correlation is essential. LAB L501.1110 >60 mL/min Normal EST GFR 65 Result Comment: Non- GFR Calc LAB L501.1115 >60 mL/min Normal EST GFR - AA 78 Result Comment: GFR Calc LAB L501.1255 ml/min Normal Estimated CRCL 43.77 LAB L501.1300 10-20 RATIO Normal BUN/CRE 15.6 LAB L501.1500 6.4-8. g/dL Normal 2 T PROT 7.9 LAB L501.1800 3.2-5. g/dL Normal 0 ALB 3.6 LAB L501.1950 2.2-4. g/dL High 2 GLOB 4.3 LAB L501.2000 0.9-2. RATIO Low 4 A/G 0.8 LAB L501.2200 8.5-10 mg/dL Normal .1 CA 9.3 LAB L501.4100 15-37 U/L Normal AST 27 Result Comment: Slight Hemolysis, Result may be falsely increased. LAB L501.4305 45-117 U/L Normal ALK P 111 LAB L501.4405 13-56 U/L Normal ALT 29 Result Comment: Please note revised ALT reference range effective 2017. LAB L501.4600 0.20-1.00 mg/dL Normal T BILI 0.40 LAB L501.5300 136-145 mmol/L Normal NA 139 LAB L501.5600 3.5-5.1 mmol/L Normal K 3.5 Result Comment: Slight Hemolysis, Result may be falsely increased. LAB L501.5900 98-107 mmol/L Normal CL 103 LAB L501.6100 21.0-32.0 mmol/L Normal CO2 28.0 LAB L501.6200 5-15 Normal 8 GAP Performed By: #### L500.4050, L501.2450, L501.4010 #### [facility] [address] [place], [address] LIPASE Collected: 10/25/2017 Status: F Source: [place] 11:35 PM [facility] REPOSITORY Order Comment: 'TROP' Serial specimen #1, #2, #3, or #4: 1 TYPE CODE TESTS RESULT OUT OF REFERENCE UNITS RANGE LAB L501.2450 73-393 U/L High LIPASE 483 Performed By: #### L500.4050, L501.2450, L501.4010 #### [facility] [address] [place], [address] TROPONIN-I Collected: 10/25/2017 Status: F Source: [place] 11:35 PM [facility] REPOSITORY Order Comment: 'TROP' Serial specimen #1, #2, #3, or #4: 1 TYPE CODE TESTS RESULT OUT OF RANGE REFERENCE UNITS LAB L501.4010 <0.06 ng/mL Normal < 0.02 TROPONIN-I Result Comment: TROPONIN-I EXPECTED VALUES <0.05 NEGATIVE 0.06 - 0.59 AT RISK OF FL > OR = 0.60 SUGGEST FL Performed By: #### L500.4050, L501.2450, L501.4010 #### [facility] [address] [place], [address] CT-CTA CHEST W/WO Observed: 10/25/2017 Status: F Source: [place] CONTRAST IMPORT 12:00 AM [facility] REPOSITORY Images were obtained outside of [facility] [id number] CT-CT ANGIO ABD PEL Observed: 10/25/2017 Status: F Source: [place] W/O W/DYE IMPORT 12:00 AM [facility] REPOSITORY Images were obtained outside of [facility] [id number] 12 LEAD ELECTROCARDIOGRAM Observed: 10/23/2017 Status: F Source: [place] 9:46 AM [facility] REPOSITORY [facility] Cardiovascular Services [address] [facility] [place] [address] 12 Lead EKG 10/19/17 0910 MR#: [id number] Acct: [id number] Name: VEE HYATT Rep #: [id number] : 1940 76 From: Immanuel Mancia MD Attending Dr: Rommel Hansen DO Status: DIS AKIRA Ordering Dr: Jose Guadalupe Hernandez MD Date: 10/19/17 Location: GA3 Sex: F C Admitted: 10/19/17 Test Reason : GEN ILLNESS Blood Pressure : / mmHG Vent. Rate : 099 BPM Atrial Rate : 099 BPM P-R Int : 148 ms QRS Dur : 076 ms QT Int : 364 ms P-R-T Axes : 047 -01 012 degrees QTc Int : 467 ms Normal sinus rhythm Nonspecific ST abnormality Abnormal ECG Confirmed by IMMANUEL MANCIA ([id number]), editorial cartoonist KELLEN SUAREZ ([id number]) on 10/23/2017 9:45:43 AM Referred By: Jose L Valenzuela Confirmed By:IMMANUEL MANCIA 10/23/17 0945 Date Immanuel Mancia MD CC: Jose L Valenzuela MD Signed DISCHARGE SUMMARY Observed: 10/21/2017 Status: F Source: [place] 8:47 AM [facility] REPOSITORY [facility] Medical Records Department [address] [place] [address] [place] [address] Discharge Summary 10/20/17 1326 MR#: [id number] Acct: [id number] Name: VEE HYATT Rep #: [id number] : 1940 76 From: Cesar MORALES PCP: Jose L Valenzuela MD Status: DIS AKIRA Y Location: MS3 [id number] ADDENDUM by Rommel Hansen DO on 10/21/17 at 0847 Code Visit OBSV E AND M: [id number] Observation care discharge 10/21/17 0847 <Electronically signed by Rommel Hansen DO> Date Rommel Hansen DO cc: CARMEN Fernandez; Rommel Hansen DO; Jose L Valenzuela MD * Signed ADDENDUM by Rommel Hansen DO on 10/21/17 at 0844 Code Visit Please add additional discharge diagnosis: Pulmonary hypertension secondary to restrictive lung function as a result of large right diaphragmatic hernia 10/21/17 0844 <Electronically signed by Rommel Hansen DO> Date Rommel Hansen DO cc: CARMEN Fernandez; Rommel Hansen DO; Jose L Valenzuela MD * Signed ADDENDUM by CARMEN Fernandez on 10/20/17 at 1453 Code Visit Echo did show moderate pulmonary htn with RVSP 48 mmHg - increased from 29 on 01/2017. EF 75%, stage 1 diastolic dysfunction 10/20/17 1453 <Electronically signed by Cesar MORALES> Date Cesar Fernandez cc: CARMEN Fernandez; Rommel Hansen DO; Jose L Valenzuela MD * Signed Addendum entered and electronically signed by CARMEN Espinal 10/20/17 14:52: Code Visit Echo did show moderate pulmonary htn with RVSP 48 mmHg - increased from 29 on 01/2017. EF 75%, stage 1 diastolic dysfunction Original Note: Discharge Date and Diagnosis - Problem List Patient Problems: Active and Suspected Problems Gastroenteritis (Acute) Hypoxia (Acute) Date of Admission: 10/19/17 Date of Discharge: 10/20/17 - Primary Discharge Diagnosis Active and Suspected Problems Gastroenteritis (Acute) - viral Hypoxia (Acute) - 2/2 diaphragmatic hernia htn depression hld - Secondary Discharge Diagnosis Chronic Problems Hx of appendectomy (Chronic) Benign essential HTN (Chronic) Depression (Chronic) HLD (hyperlipidemia) (Chronic) Overweight (BMI 25.0-29.9) (Chronic) CAD (coronary artery disease) (Chronic) Diabetes mellitus, type II (Chronic) Traumatic closed nondisplaced fracture of neck of left femur (Chronic) Status post closed reduction with internal fixation (Chronic) left femur 06/22, Dr Spears, [facility] Tinea unguium (Chronic) Dyskinesia, tardive (Chronic) Takatsuki syndrome (Chronic) Brain aneurysm (Chronic) Takotsubo syndrome (Chronic) Hypertension (Chronic) Hospital Course and Treatment Imaging Results: 10/20/17 07:55 Echo Complete [ECHO] Routine - report pending CT/Chest without Contrast IMPRESSION: Unchanged right diaphragmatic hernia. Compressive atelectasis right lower lung. Pulmonary venous hypertension. Small bowel ileus versus partial obstruction. Large posterior right lower thoracic subcutaneous lipoma. CT/Abdomen/Pelvis without Cont IMPRESSION: 1. Scattered fluid-filled loops of small bowel with scattered gaseous distention. No evidence of small bowel obstruction at this time. 2. Chronic diverticulosis without acute diverticulitis 3. Nonobstructing left nephrolith. Exophytic left renal cyst. 4. Nonvisualized appendix RAD/Chest 1 View (Portable) IMPRESSION: New small left pleural effusion with underlying infiltration and/or atelectasis. Filippo - pulm Operations: None Procedures: 2-D Echocardiogram Summary of Care Provided: Physical exam on day of discharge: General: Resting comfortably NAD Psych: A/Ox3 normal affect HEENT: [place] AT NC Neck: Supple NT CV: RRR no m/t/r/g/h Resp: CTA Abd: [id number] Soft NT no guarding or rigidity Ext: DP2+= no edema Skin: W/D normal turgor Lymph/Heme: No active bleeding or adenopathy Neuro: CN2-12 intact Hospital course: The patient is a 76 year old F who presented to the emergency room complaining of nausea vomiting, diarrhea, abdominal pain diffusely across her abdomen that had significantly worsened the night prior however have been chronic over the past month. Her son had similar symptoms and they both went to their PCP and were told he had viral gastroenteritis. She presented to the emergency room and was found to have hypoxia on room air with a pulse ox had 88%. She is placed on oxygen. She had a CT of her abdomen which did not reveal any acute abdominal abnormalities. Chest x-ray demonstrated atelectasis. She is felt to have acute viral gastroenteritis and hypoxia of unclear etiology. She is placed on IV fluids as she appeared somewhat dehydrated, made n.p.o., given supportive care. She is able to be weaned off oxygen. She had no shortness of breath further. She was seen by pulmonology who felt that the patients hypoxia was secondary to a large diaphragmatic hernia treating to compressive atelectasis in her right lung. She had acute CT of her chest which did not reveal any infiltrates, did show enlarged pulmonary veins so an echocardiogram was done to assess for underlying pulmonary hypertension. Report this is pending at this time. She had no further oxygen needs and was ambulated in the [place] with no oxygen needs. She had been seen in the past by surgeon for diaphragmatic hernia but no surgery was indicated at that time per the patient. At this time we advised her to follow-up with pulmonology for hypoxia, and also follow-up with the surgeon that evaluated her prior for the diaphragmatic hernia. Her diet was advanced and was tolerated well. She had no further abdominal symptoms, no nausea, vomiting, or diarrhea after admission. She was discharged home in stable condition to follow-up with the above and with her PCP in 1-2 weeks. This patient was seen by Cesar Fernandez PA-C under the supervision of Doctor Jade. [] Discharge Diet: Low fat/ Low Cholesterol, 4000 mg Sodium Diet, Bananas, Rice, Applesauce and [place] Discharge Activity: Return to Normal Activity Home Medications: Medications to take at Discharge Clonidine HCl 0.05 tab PO BID 03/17/17 Fluoxetine [Prozac] 60 mg PO DAILY 03/17/17 Furosemide [Lasix] 20 mg PO DAILY 03/17/17 Lorazepam [Ativan] 1 mg PO BID 03/17/17 Losartan Potassium 100 mg PO DAILY 03/17/17 Magnesium Oxide [Mag-Ox 400] 400 mg PO QHS 03/17/17 Pantoprazole Sodium [Protonix] 20 mg PO DAILY 03/17/17 Pramipexole Di-HCl [Pramipexole Dihydrochloride] 0.75 mg PO QHS 03/17/17 Simvastatin 40 mg PO QHS 03/17/17 Spironolactone 25 mg PO DAILY 03/17/17 Dicyclomine HCl 20 mg PO DAILY PRN 10/19/17 Minoxidil [Loniten] 2.5 mg PO BID 10/19/17 Ondansetron HCl [Zofran] 4 mg PO Q8H PRN 10/19/17 Primary Care Physician: Jose L Valenzuela MD [Primary Care Provider] - Please follow up with your Primary Care Physician in: 1-2 weeks Please Follow Up With: General Surgery - You should follow up with the general surgeon that evaluated you for your hernia When: 2 weeks Please Follow Up With: Cresencio Barkley MD When: 2 weeks Disposition: Home Minutes spent on discharge:: 40 Patient Condition:: Stable Meaningful Use Info Meaningful Use Diagnoses (Choose all that apply): None applicable 10/20/17 0547 <Electronically signed by Cesar MORALES> Date Cesar Hart Signature (if applicable): Date CC: CARMEN Fernandez; Rommel Hansen DO; Jose L Valenzuela MD Signed CONSULTATION Observed: 10/21/2017 Status: F Source: [place] 5:27 AM [facility] REPOSITORY [facility] Medical Records Department [address] [place] [address] Consultation 10/20/17 0742 MR#: [id number] Acct: [id number] Name: VEE HYATT Rep #: [id number] : 1940 76 From: Cresencio Barkley MD PCP: Jose L Valenzuela MD Status: DIS AKIRA Y Location: [address] Problem List (1) Gastroenteritis Status: Acute (2) Hypoxia Status: Acute (3) Diabetic neuropathy Status: Acute Qualifiers: Diabetes mellitus type: type 2 Diabetes mellitus complication detail: with other neurological complication Qualified Code(s): E11.49 - Type 2 diabetes mellitus with other diabetic neurological complication (4) Status post total hip replacement, left Status: Acute Comment: 08/03/15, failed concervative pinning, completed by Dr Spears [facility] (5) Benign essential HTN Status: Chronic (6) Brain aneurysm Status: Chronic (7) CAD (coronary artery disease) Status: Chronic Qualifiers: Coronary Disease-Associated Artery/Lesion type: wiyot artery [place] vs. transplanted heart: wiyot heart Associated angina: without angina Qualified Code(s): I25.10 - Atherosclerotic heart disease of wiyot coronary artery without angina pectoris (8) Depression Status: Chronic (9) Diabetes mellitus, type II Status: Chronic (10) Dyskinesia, tardive Status: Chronic (11) HLD (hyperlipidemia) Status: Chronic (12) Hx of appendectomy Status: Chronic (13) Overweight (BMI 25.0-29.9) Status: Chronic (14) Takatsuki syndrome Status: Chronic (15) Takotsubo syndrome Status: Chronic Reason for Consult Date of Consultation: 10/20/17 Reason for Consultation: Hypoxemia History of Present Illness: The patient is a 76 year old F, with past medical history listed below, who presented to [facility] on 10/19/2017 secondary to generalized weakness, nausea, vomiting, diarrhea and abdominal pain. Patient had attempted conservative therapy at home and saw her PCP 2 days prior to presentation to the ER. Suspicion for polypharmacy at that time. After multiple episodes of emesis, patient presented to the ER for evaluation. On evaluation in the emergency room, patient was noted to be tachycardic at 106 bpm and saturating 88% on room air. There was discussion about possible discharge home, but given patient's desaturation, patient was admitted to the floor for evaluation. Patient was empirically placed on Rocephin and azithromycin. Patient did have a CT scan of the abdomen and pelvis. Patient reports little subjective change in overall condition. Patient does have some nausea and tinnitus this morning. Patient denies any chest pain. Patient is not a very good historian of the recent past. Patient states she has no knowledge of previous chest imaging, but later states that she was evaluated in [place] approximately 1 year ago for possible correction of my diaphragm, but it was good to be very involved so I decided not to do it. Patient states she uses this hospital is her primary health access point and most imaging should be here. Patient denies any history of smoking or asthma. Patient has never had pulmonary function tests or used inhalers in the past. Patient has not required supplemental oxygen in the past. Patient denies any chest surgery. Patient does report a history of a cholecystectomy, appendectomy and tonsillectomy. Patient denies any open heart surgery or neck surgery. Patient does report a sporadic productive cough over the last 2-3 days. Patient is unaware of the color of the sputum. Review of systems otherwise negative 10 systems. Past Medical History Past Medical History (Chronic Problems): Chronic Problems Hx of appendectomy (Chronic) Benign essential HTN (Chronic) Depression (Chronic) HLD (hyperlipidemia) (Chronic) Overweight (BMI 25.0-29.9) (Chronic) CAD (coronary artery disease) (Chronic) Diabetes mellitus, type II (Chronic) Traumatic closed nondisplaced fracture of neck of left femur (Chronic) Status post closed reduction with internal fixation (Chronic) left femur 06/22, Dr Spears, [facility] Tinea unguium (Chronic) Dyskinesia, tardive (Chronic) Takatsuki syndrome (Chronic) Brain aneurysm (Chronic) Takotsubo syndrome (Chronic) Hypertension (Chronic) Allergies No Known Allergies Allergy (Verified 03/17/17 10:29) Home Medications: Ambulatory Orders Medication Instructions Recorded Clonidine HCl 0.05 tab PO BID 03/17/17 Surgical History: appendectomy, cholecystectomy, herniorrhaphy, tonsillectomy, - - 06/22/15 left hip CRIF Psychiatric History: No pertinent psych hx, Depression 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 Patient Problems: Active and Suspected Problems Gastroenteritis (Acute) Hypoxia (Acute) Objective: All imaging was personally reviewed. CT scan of the abdomen and pelvis and chest show a right diaphragmatic hernia. Patient does have increased pulmonary artery diameter, but no infiltrate is appreciated. Chest x-ray was reviewed, but CT scan did not show any pleural effusion or infiltrate on my review. - Physical Exam General: Alert, Oriented x3, Cooperative, No apparent distress, - - Speaking in full sentences. HEENT: Atraumatic, PERRLA, EOMI, Normocephalic, - - No scleral icterus or injection noted. Oral: Moist Mucosa, No Gingival or Mucosal Lesions/ Ulcerations Neck: Supple, No JVD, No Nodes, Trachea Midline Lungs: No rhonchi, No wheeze, No rales, Diminished - Right base, - - Decreased expansion of the right chest compared to left. Cardiovascular: Regular rate, Regular Rhythm, Normal S1, Normal S2, No murmurs, No rub noted, No Gallop Abdomen: Soft, Non Tender, Non-Distended, Hyperactive Bowel Sounds, Obese Extremities: No clubbing, No cyanosis, No edema, Capillary Refill Less than 3 Seconds Skin: No rashes, No breakdown, - - Mild dermal atrophy noted Musculoskeletal: No Tenderness to Palpation of Joints or Extremities Lymphatic: No Cervical, Supraclavicular, or Inguinal Adenopathy Neurological: Cranial nerves II-XII grossly intact, Neuro grossly intact, Motor Exam 5/5 strength throughout, Sensory exam intact to light touch and pain, - - Slight tremor appreciated of the face Psych/Mental Status: Alert and oriented to time, place, person, mood and affect Vital Signs Temp Pulse Resp BP Pulse Ox 37.2 C 89 18 146/76 H 98 10/20/17 03:41 10/20/17 03:41 10/20/17 03:41 10/20/17 03:41 10/20/17 03:41 Oxygen Flow Rate 2 Oxygen Delivery Method Nasal Cannula Weight: 78.063 kg Body Mass Index (BMI) 29.5 Intake and Output for Last 24 Hours Intake Total 1482 / 1482 Output Total 200 / 200 Balance 1282 / 1282 Laboratory Tests WBC 10.1 RBC 4.69 Hgb 13.9 Hct 42.4 MCV 90.4 MCH 29.6 MCHC 32.8 RDW 13.5 WBC RBC Clinical Impression(s) from Imaging Studies Abdomen/Pelvis CT 10/19/17 08:58 IMPRESSION: 1. Scattered fluid-filled loops of small bowel with scattered gaseous distention. No evidence of small bowel obstruction at this time. 2. Chronic diverticulosis without acute diverticulitis 3. Nonobstructing left nephrolith. Exophytic left renal cyst. 4. Nonvisualized appendix Electronically Signed: Oren Monk DO at 10:35 EST Tel , Service support , Chest X-Ray 10/19/17 08:58 IMPRESSION: New small left pleural effusion with underlying infiltration and/or atelectasis. Electronically Signed: Fan Benavidez MD at 9:26 EST Tel [phone], Service support , Chest CT 10/19/17 16:56 IMPRESSION: Unchanged right diaphragmatic hernia. Compressive atelectasis right lower lung. Pulmonary venous hypertension. Small bowel ileus versus partial obstruction. Large posterior right lower thoracic subcutaneous lipoma. Electronically Signed: Lenny Cook DO at 18:11 EST , Service support , Assessment/Plan Active and Suspected Problems Gastroenteritis (Acute) Hypoxia (Acute) RECOMMENDATIONS: 1. Obtain echocardiogram 2. Walking oximetry prior to discharge 3. Supplemental oxygen if indicated on discharge 4. Close outpatient follow-up with pulmonary office for PFT 5. Avoid BiPAP or positive pressure ventilation of possible 6. Likely okay to discontinue antibiotics from my perspective IMPRESSIONS: 1. Hypoxia Patient with a relatively substantial right-sided diaphragmatic hernia. Need to verify history, but it sounds like this has been evaluated in the past. No imaging is available for review at this time that shows chronicity. Clinical suspicion for restrictive lung disease secondary to this hernia leading to decreased saturations from atelectasis of a compressive nature. Patient does have a substantially dilated pulmonary artery on CT scan. Recommend obtaining echocardiogram for evaluation of pulmonary artery pressures in comparison to echo in January with an RVSP of 29. Correction of diaphragmatic hernia would be a substantial surgery and patient may not elect to complete it, even if indicated by saturations. Amount of atelectasis may improve using incentive spirometer and with decreased bowel gas after cessation of gastroenteritis. 2. Acute gastroenteritis Probable viral in etiology. Patient does have family members with similar type illnesses. Labs are currently pending for this morning. Defer to hospitalist for acute management. Increased bowel gas would worsen underlying hernia. Code Visit Inpatient E AND M: [id number] Init Hosp L2 10/21/17 0527 <Electronically signed by Cresencio Barkley MD> Date Cresencio Barkley MD Cosigner Signature (if applicable): Date CC: Cresencio Barkley MD; Jose L Valenzuela MD Signed ECHO, COMPLETE W/ Observed: 10/20/2017 Status: F Source: SUSSY CONTRAST 2:28 PM [facility] REPOSITORY [facility] Cardiovascular Services [address] [place] [address] Echo Complete 10/20/17 1145 MR#: [id number] Acct: [id number] Name: VEE HYATT Rep #: [id number] : 1940 76 From: Immanuel Mancia MD Attending Dr: Jade ZIMMER,Rommel Status: ADM AKIRA Ordering Dr: Cresencio Barkley MD Date: 10/20/17 Location: [facility] Sex: F C Admitted: 10/19/17 Reason For Study: PHTN Procedure This was a 2D Doppler, Color Flow transthoracic echocardiogram. Exam performed portable in patient room. Left Ventricle Normal size and thickness. The estimated ejection fraction is 75 %. Stage 1 diastolic dysfunction. No regional wall motion abnormalities noted. Right Ventricle Mildly dilated right ventricle. Normal systolic function. Atria Normal left atrium. Normal right atrium. Normal atrial septum. Mitral Valve The mitral valve is structurally normal. No prolapse or stenosis seen. Tricuspid Valve Normal tricuspid valve. Mild (1+) tricuspid valve insufficiency. Right ventricular systolic pressure estimated to be 48 mmHg. Moderate pulmonary hypertension. Aortic Valve Trisinus/trileaflet aortic valve. Mild diffuse aortic valve thickening. Trivial aortic valve insufficiency. Pulmonic Valve Normal pulmonic valve. Great Vessels Normal aortic root. Normal arch. Normal inferior vena cava. Inferior vena cava collapse with sniff. Pericardium/Pleural No pericardial effusion. MMode/2D Measurements AND Calculations LVIDd: 3.9 cm IVSd: 1.3 cm LVOT diam: 2.0 cm LVIDs: 2.6 cm LVPWd: 0.96 cm LVOT area: 3.0 cm2 FS: 33.7 % Ao root diam: 3.2 cm LAV(MOD-bp): 59.4 ml LA A4 area: 17.1 cm2 LA dimension: 3.8 cm LAV(MOD-bp) Indexed: 32.4 ml/m2 LAV(MOD-sp2): 67.0 ml LAV(MOD-sp4): 44.9 ml Time Measurements MV dec time: 0.21 sec Doppler Measurements AND Calculations MV E max amos: 63.0 cm/sec Lat Peak E' Amos: 13.6 cm/sec Med Peak E' Amos: 9.4 cm/sec MV A max amos: 84.6 cm/sec E/E' lat: 4.7 E/E' med: 6.7 MV E/A: 0.75 MV V2 max: 85.7 cm/sec MV P1/2t max amos: 83.0 cm/sec Ao V2 max: 136.5 cm/sec MV max P.9 mmHg MV P1/2t: 94.8 msec Ao max P.5 mmHg MV V2 mean: 54.6 cm/sec MV dec slope: 256.6 cm/sec2 Ao V2 mean: 95.9 cm/sec MV mean P.4 mmHg MVA(P1/2t): 2.3 cm2 Ao mean P.1 mmHg MV V2 VTI: 21.2 cm Ao V2 VTI: 26.3 cm MVA(VTI): 3.4 cm2 RISHABH(I,D): 2.8 cm2 RISHABH(V,D): 2.8 cm2 AI max amos: 362.4 cm/sec LV V1 max: 126.2 cm/sec SV(LVOT): 73.1 ml AI max P.5 mmHg LV V1 max P.4 mmHg AI dec slope: 328.3 cm/sec2 LV V1 mean P.2 mmHg AI P1/2t: 323.3 msec LV V1 mean: 84.5 cm/sec LV V1 VTI: 24.1 cm PA V2 max: 92.9 cm/sec TR max amos: 327.6 cm/sec TR max P.9 mmHg Interpretation Summary The estimated ejection fraction is 75 %. Stage 1 diastolic dysfunction. Mildly dilated right ventricle. Mild (1+) tricuspid valve insufficiency. Right ventricular systolic pressure estimated to be 48 mmHg. Moderate pulmonary hypertension. Trivial aortic valve insufficiency. Compared to echo report dated 02/16/2017, LV function has remained the same, but RVSP has increased from 29 to 48 mm Hg. Ordering Physician: Cresencio Barkley Referring Physician: Jose L Valenzuela Performed By: Huang Ruth RCS 10/20/17 1428 Date Immanuel Mancia MD CC: Cresencio Barkley MD; Jose L Valenzuela MD Date Dictated: 10/20/17 1145 Date Transcribed: 10/20/17 1428 Legal Recovery Specialist: Signed DISCHARGE INSTRUCTION Observed: 10/20/2017 Status: F Source: SUSSY 11:44 AM [facility] REPOSITORY [facility] Medical Records Department [address] [place] [address] Instructions for Home/Discharge Instructions 10/20/17 1143 MR#: [id number] Acct: [id number] Name: VEE HYATT Rep #: [id number] : 1940 76 From: Cesar MORALES PCP: Jose L Valenzuela MD Status: ADM AKIRA - Discharge Diagnoses Current Active Problems: Current Active and Chronic Problems Gastroenteritis (Acute) Hypoxia (Acute) You will use the following diet at home:: Cardiac, Other - BRAT diet, advance to normal diet slowly as tolerated. Your food should be the consistency of: Regular Your liquids should be the consistency of: Regular/Thin Discharge Activity: Return to Normal Activity Allergies/Adverse Reactions: Allergies No Known Allergies Allergy (Verified 03/17/17 10:29) Medications to take at Discharge Clonidine HCl 0.05 tab PO BID 03/17/17 Fluoxetine [Prozac] 60 mg PO DAILY 03/17/17 Furosemide [Lasix] 20 mg PO DAILY 03/17/17 Lorazepam [Ativan] 1 mg PO BID 03/17/17 Losartan Potassium 100 mg PO DAILY 03/17/17 Magnesium Oxide [Mag-Ox 400] 400 mg PO QHS 03/17/17 Pantoprazole Sodium [Protonix] 20 mg PO DAILY 03/17/17 Pramipexole Di-HCl [Pramipexole Dihydrochloride] 0.75 mg PO QHS 03/17/17 Simvastatin 40 mg PO QHS 03/17/17 Spironolactone 25 mg PO DAILY 03/17/17 Dicyclomine HCl 20 mg PO DAILY PRN 10/19/17 Minoxidil [Loniten] 2.5 mg PO BID 10/19/17 Ondansetron HCl [Zofran] 4 mg PO Q8H PRN 10/19/17 Primary Care Physician: Jose L Valenzuela MD [Primary Care Provider] - Please follow up with your Primary Care Physician in: 1-2 weeks Please Follow Up With: General Surgery - You should follow up with the general surgeon that evaluated you for your hernia When: 2 weeks Please Follow Up With: Cresencio Barkley MD When: 2 weeks Proposed Discharge Date: 10/19/17 10/20/17 1144 <Electronically signed by Cesar MORALES> Date Cesar MORALES CC: Cresencio Barkley MD; Jose L Valenzuela MD CBC W/DIFF, AUTOMATED Collected: 10/20/2017 Status: F Source: SUSSY 6:27 AM [facility] [place] REPOSITORY TYPE CODE TESTS RESULT OUT OF RANGE REFERENCE UNITS LAB L100.1000 4.4-11.0 K/mm3 Normal WBC 6.7 LAB L100.1200 4.2-5.4 M/mm3 Low RBC 4.19 LAB L100.1300 12.0-15.0 g/dl Normal HGB 12.5 LAB L100.1400 37-47 % Normal HCT 38.7 LAB L100.1500 81-99 fL Normal MCV 92.4 LAB L100.1600 27.0-32.0 pg Normal MCH 29.8 LAB L100.1700 32-36 g/gl Normal MCHC 32.3 LAB L100.1810 11.6-14.6 % Normal RDW CV 13.9 LAB L100.1820 35.1-43.9 fl High RDW SD 47.1 LAB L100.1900 150-450 K/mm3 Normal PLT 189 LAB L100.2000 6.2-12.0 fl Normal MPV 8.8 LAB L100.2100 47-70 % High NEUT% 84.1 LAB L100.2200 19-41 % Low LY% 11.5 LAB L100.2300 0-10 % Normal MONO% 4.3 LAB L100.2400 0-5 % Normal EO% 0.0 LAB L100.2500 0-1 % Normal BASO% 0.1 LAB L100.2550 0.0-0.9 % Normal IM GRAN % 0.000 Result Comment: IG% - Immature Granulocytes (promyelocytes, myelocytes and metamyelocytes) > 1% indicates that a LEFT SHIFT is Present. LAB L100.2620 2.0-7.7 X10 3/uL Normal Absolute Neut 5.6 LAB L100.2720 0.83-4.51 X10 3/ul Low Absolute Lymph 0.77 Performed By: #### L100.0100 #### [facility] [address] [place], [address] BASIC METABOLIC Collected: 10/20/2017 Status: F Source: SUSSY PROFILE (BMP) 6:27 AM [facility] REPOSITORY TYPE CODE TESTS RESULT OUT OF RANGE REFERENCE UNITS LAB L501.0100 70-110 mg/dL Normal GLU 85 LAB L501.1000 7-18 mg/dL High BUN 22 LAB L501.1100 0.55-1.02 mg/dL Normal 0.74 CREAT,SERUM Result Comment: The validity of the calculated GFR AND GFRAA in patients over 70 years has not been determined. Clinical correlation is essential. LAB L501.1110 >60 mL/min Normal EST GFR 81 Result Comment: Non- GFR Calc LAB L501.1115 >60 mL/min Normal EST GFR - AA 98 Result Comment: GFR Calc LAB L501.1255 ml/min Normal Estimated CRCL 40.04 LAB L501.1300 10-20 RATIO High BUN/CRE 29.8 LAB L501.2200 8.5-10 mg/dL Low .1 CA 8.4 LAB L501.5300 136-14 mmol/L Normal 5 NA 141 LAB L501.5600 3.5-5. mmol/L Normal 1 K 3.7 LAB L501.5900 98-107 mmol/L High CL 109 LAB L501.6100 21.0-3 mmol/L Normal 2.0 CO2 26.0 LAB L501.6200 5-15 Normal GAP 6 Performed By: #### L500.2500 #### [facility] [address] [place], [address] HISTORY AND PHYSICAL Observed: 10/19/2017 Status: F Source: HEAD WATERS EXAM 6:18 PM [facility] [place] REPOSITORY [facility] Medical Records Department [address] [place] [address] History and Physical 10/19/17 1510 MR#: [id number] Acct: [id number] Name: VEE HYATT Rep #: [id number] : 1940 76 From: Cesar MORALES PCP: Jose L Valenzuela MD Status: ADM AKIRA Y Location: [place] [address]-1 ADDENDUM by Rommel Hansen DO on 10/19/17 at 1818 Code Visit Vision seen and examined independently of Cesar Fernandez, she came to the ER today at [facility] with complaints of abdominal pain, nausea and vomiting. She also complained of diarrhea. She was worked up in the emergency room including a chest x-ray, CT of the abdomen, and labs. Her CBC was unremarkable, her chem panel was remarkable for slight increase in creatinine but this is near her baseline creatinine. Urinalysis was unremarkable. CT of the abdomen showed gaseous distention of the small bowel but no evidence of obstruction. Chest x-ray was read out as showing a left lower lobe effusion and small infiltrate. Emergency room physician felt that patient had a pneumonia, and interviewing the patient and examining her, I did not feel this was true, patient has a large right diaphragmatic hernia that is been present for a long period of time. Patient did have hypoxia with her pulse ox reading of 88%, ABG showed a oxygen sat of 90% however this was done at rest and if the patient was ambulating this would indeed go lower. I am not sure what is causing the patient's hypoxia-I tend to think that this is a chronic state that she has and she does not do much at home. On auscultation of the patient's lungs, there was some inspiratory rales at the right base, otherwise lung sounds were diminished. Heart rate and rhythm is regular, abdomen was overall soft and non-tympanic. I called the patient's PCP today by phone and he stated that the patient appeared constipated yesterday and he gave her a laxative. This would account for her diarrhea today. Patient will be placed in observation status for diarrhea, abdominal pain, nausea, and hypoxia. She will be seen in consultation by pulmonology and she will have a CT of her chest. Patient will be given IV fluids and antiemetics. I have reviewed Cesar Fernandez's history and physical and plan of care and endorse both 10/19/171817 <Electronically signed by Rommel Hansen DO> Date Rommel Hansen DO cc: CARMEN Fernandez; Rommel Hansen DO; Jose L Valenzuela MD * Signed Problem List (1) Hypoxia Status: Acute (2) Gastroenteritis Status: Acute (3) Depression Status: Chronic (4) HLD (hyperlipidemia) Status: Chronic (5) Hypertension Status: Chronic (6) Overweight (BMI 25.0-29.9) Status: Chronic History of Present Illness Date of Admission: 10/19/17 Chief Complaint: nausea, vomiting, diarrhea The patient is a 76 year old F who presents to the ER complaining of nausea vomiting and diarrhea. She has been severely nauseous with multiple episodes of vomiting, anorexia, decreased PO intake, diarrhea, and diffuse abdominal pain since last night. She has had similar off and on symptoms for several weeks, and her son also has had similar symptoms. They went to their PCP and were told they had viral gastroenteritis. The patient however feels much worse. She remains significant nauseous and is hiccuping into an emesis basin. She feels SOB when she starts vomiting. Otherwise she has no SOB. She was found to be hypoxic at one point in the ER at 88% on RA and was placed on O2. She has an occasional cough with clear sputum production. She has no fevers, some chills last night. She is dizzy when she ambulates, none at rest. [] Past Medical History Past Medical History (Chronic Problems): Chronic Problems Hx of appendectomy (Chronic) Benign essential HTN (Chronic) Depression (Chronic) HLD (hyperlipidemia) (Chronic) Overweight (BMI 25.0-29.9) (Chronic) CAD (coronary artery disease) (Chronic) Diabetes mellitus, type II (Chronic) Traumatic closed nondisplaced fracture of neck of left femur (Chronic) Status post closed reduction with internal fixation (Chronic) left femur 06/22, Dr Spears, [facility] Tinea unguium (Chronic) Dyskinesia, tardive (Chronic) Takatsuki syndrome (Chronic) Brain aneurysm (Chronic) Takotsubo syndrome (Chronic) Hypertension (Chronic) Allergies No Known Allergies Allergy (Verified 03/17/17 10:29) Home Medications: Ambulatory Orders Medication Instructions Recorded Clonidine HCl 0.05 tab PO BID 03/17/17 Surgical History: appendectomy, cholecystectomy, herniorrhaphy, tonsillectomy, - - 06/22/15 left hip CRIF Psychiatric History: No pertinent psych hx, Depression IMPORT EXPORT CLERK History: No pertinent IMPORT EXPORT CLERK history Smoking Status: Never smoker - *Family History Maternal History Items: Cancer - age 55, colon Paternal History Items: Cancer - in metastatic prostate Offspring History Items: - - 2 children Review of Systems Constitutional: Reports: Anorexia, Chills. Denies: Fever, Weight Change HEENT: Denies: Head Aches, Sinus Congestion, Sinus Drainage Cardiovascular: Denies: Chest Pain, Palpitations Respiratory: Reports: Cough, Shortness of Breath, Sputum production. Denies: Shortness of breath at rest Gastrointestinal: Reports: Abdominal Pain, Diarrhea, Nausea, Vomiting Genitourinary: Denies: Dysuria Musculoskeletal: Denies: Joint Pain, Joint Tenderness Skin: Denies: Rash, Wounds Neurological: Denies: Numbness, Tingling, Focal weakness Psychiatric: Denies: Anxiety, Depression, Homicidal Ideations, Suicidal Ideations Hematologic/ Lymphatic: Denies: Easy Bruising, Easy Bleeding VTE Information - Inpt Only VTE Present on Admission: No VTE Mechan Device Prophylaxis: SCD's VTE Pharm Prophylaxis ordered?: Yes Patient Problems: Active and Suspected Problems Gastroenteritis (Acute) Hypoxia (Acute) - Physical Exam General: Alert, Oriented x3, Cooperative HEENT: Atraumatic, PERRLA, EOMI, Normocephalic Oral: Dry Mucosa Neck: Supple, No JVD, Negative Carotid Bruits Lungs: Clear to auscultation, Normal air movement Cardiovascular: Regular rate, No murmurs Abdomen: Bowel Sounds Present, Soft, Tender - diffusely, no guarding. Extremities: No edema, Capillary Refill Less than 3 Seconds Skin: No rashes, No breakdown Musculoskeletal: No Tenderness to Palpation of Joints or Extremities Neurological: Cranial nerves II-XII grossly intact Psych/Mental Status: Normal Affect, Appropriate, Alert and oriented to time, place, person, mood and affect Vital Signs Temp Pulse Resp BP Pulse Ox 98.9 F 90 13 140/79 H 96 10/19/17 08:49 10/19/17 14:35 10/19/17 14:35 10/19/17 14:27 10/19/17 14:35 Oxygen Flow Rate 2 Oxygen Delivery Method Nasal Cannula Weight: 74.843 kg Body Mass Index (BMI) 28.3 Finger Stick Blood Glucose 176 Laboratory Tests Past 24 Hrs WBC 10.1 RBC 4.69 Hgb 13.9 Hct 42.4 MCV 90.4 MCH 29.6 MCHC 32.8 RDW 13.5 WBC RBC Assessment/Plan Active and Suspected Problems Gastroenteritis (Acute) Hypoxia (Acute) 1. Acute Hypoxia - unclear etiology - Initially she was 99% on RA, then at some point in the ER decreased to 88% and was placed on O2. CT abdomen shows clear lung bases, CXR with small left pleural effusion vs consolidation vs atelectasis. Lungs clear on exam. Only complains of SOB when vomiting. Pulmonary consult. CT chest. Nonsmoker no hx asthma/copd. PRN aerosols. Afebrile no leukocytosis. Defer antibiotics. Doubt infectious process. LA neg. 2. Intractable nausea / vomiting/ diarrhea / diffuse abdominal pain - viral gastroenteritis. Son is also sick. IV fluids. prn antiemetics. clear liquid diet. s/p appendectomy and cholecystectomy. 3. Hx htn, depression, HLD - continue home meds. 4. Mildly elevated BUN and Cr - suspect dehydration - some dizziness when ambulating. dry oral mucosa - IV fluids. DVT ppx: heparin DC planning: lives alone, son helps with care, doubt she will have home going needs. This patient was seen by Cesar Fernandez PA-C under the supervision of Doctor Hansen. 10/19/17 1524 <Electronically signed by Cesar MORALES> Date Cesar MORALES 10/19/17 1813<Electronically signed by Rommel Hansen DO> Cosigner Signature: Date (if applicable) Rommel Hansen DO CC: CARMEN Fernandez; Rommel Hansen DO; Jose L Valenzuela MD Signed EMERGENCY DEPARTMENT Observed: 10/19/2017 Status: F Source: HEAD WATERS SUMMARY 6:12 PM [facility] REPOSITORY [facility] Medical Records Department [address] [place] [address] Emergency Department Summary 10/19/17 0930 MR#: [id number] Acct: [id number] Name: VEE HYATT Rep #: [id number] : 1940 76 From: Jose Guadalupe Hernandez MD PCP: Jose L Valenzuela MD Status: ADM AKIRA - ER Visit Summary Date of Service: 10/19/17 Chief Complaint: Generalized weakness History of Present Illness: The patient is a 76 F presenting for evaluation secondary to generalized weakness nausea vomiting diarrhea and abdominal pain. Apparently over the course of the week the patient has been having issues with increasing weakness. She saw her PCP 2 days ago was thought that potentially this was secondary to polypharmacy. However, the patient's family has been passing around a GI illness and the patient contracted this yesterday. Patient states that it has been associated with multiple episodes of nonbloody nonbilious emesis, as well as multiple episodes of loose watery nonbloody non-mucousy diarrhea. It is associated with a epigastric abdominal pain that is continuous and aching in sensation. Patient denies any fevers. Denies any chest pain. She denies any laterality to her weakness. Review of systems otherwise negative. Physical Examination: Vital signs are notable for heart rate of 106 respiratory rate 24. Well-nourished well-developed female no acute distress. Head normocephalic. No conjunctival pallor noted, dry mucous membranes. No JVD. Heart was tachycardic and regular with no murmurs. Respiratory tachypneic, but respirations were nonlabored nondistressed and lung sounds are clear. Abdomen was tender in the epigastrium no guarding no rebound normal bowel sounds. Extremities nonedematous. No skin rashes. Patient was alert and oriented 3, NIH stroke scale was 0. No lateralizing neurological deficits. Test Results: EKG shows sinus rhythm at [address] segments, nonspecific T-wave flattening, no evidence of acute ischemia or arrhythmia. Chest x-ray demonstrates a left lower lobe infiltrate. CT abdomen and pelvis shows nothing acute. CBC chemistry unremarkable. Urinalysis shows blood but no infection. Emergency Department Course and Treatment: Patient presented secondary to generalized illness with abdominal pain. Workup showed only evidence of pneumonia. Patient actually demonstrated hypoxia in the emergency department with pulse ox of 88% on room air. She was placed on supplemental oxygen. This point I believe the patient requires admission. She was given Rocephin and azithromycin, and will be admitted under the hospitalist after blood cultures. Disposition: Admission Impression: 1. Community-acquired pneumonia 2. Hypoxia This note was generated with [employer] dictation software. It may contain incorrect words, spelling, and punctuation that were not noted in review of the chart prior to signing ED Disposition - Plan for ED Patient: Chief Complaint: General Illness Referrals: Jose L Valenzuela MD [Primary Care Provider] - What to do if you have Problems For any increased pain, shortness of breath, bleeding, nausea or vomiting, chest pain, or any unexpected problems, contact your Primary Care Provider. Call [facility] ([phone]) or report to the closest Emergency Room. Call 911 if necessary. 10/19/17 1812 <Electronically signed by Jose Guadalupe Hernandez MD> Date Jose Guadalupe Hernandez MD Cosigner Signature (If Indicated): Date CC: Jose L Valenzuela MD CHEST WITHOUT Observed: 10/19/2017 Status: F Source: HEAD WATERS CONTRAST 4:57 PM [facility] REPOSITORY [facility] Imaging Services [address] [place] [address] Chest without Contrast MR#: [id number] Acct: [id number] Name: VEE HYATT Rep #: [id number] : 1940 F 76 From: Lenny Cook PCP: Jose L Valenzuela MD Status: ADM AKIRA Study: Chest without Contrast Date of Exam: 10/19/17 Exam# [id number] Ordering Dr: Rommel Hansen DO STUDY: CT CHEST WITHOUT CONTRAST REASON FOR EXAM: Female, 76 years old. Cough, weakness RADIATION DOSAGE (If Supplied By Facility): CTDIvol = ( 15.37 ) mGy, DLP = ( 553.04 ) mGycm TECHNIQUE: Transaxial imaging was performed without the administration of intravenous contrast material. Individualized dose optimization techniques were used for this CT. COMPARISON: 10/17/2016. FINDINGS: Compressive atelectasis right lower lung. There is no demonstrated pleural abnormality. Normal heart and pericardium. Normal mediastinum. Normal hilar regions. There is prominence of the pulmonary hilar arteries without peripheral pulmonary vascular congestion, suggesting pulmonary hypertension. Normal aorta arch and descending thoracic aorta. Normal osseous structures. Fluid-filled small bowel. Right diaphragmatic hernia There is a posterior right lower thoracic subcutaneous lipoma measuring 5.[address]/Chest without Contrast IMPRESSION: Unchanged right diaphragmatic hernia. Compressive atelectasis right lower lung. Pulmonary venous hypertension. Small bowel ileus versus partial obstruction. Large posterior right lower thoracic subcutaneous lipoma. Electronically Signed: Lenny Cook DO at 18:11 EST , Service support , CC: Rommel Hansen DO; Jose L Valenzuela MD Legal Recovery Specialist: Signed BLOOD GASES BY CPS Collected: 10/19/2017 Status: F Source: SUSSY 1:30 PM [facility] REPOSITORY TYPE CODE TESTS RESULT OUT OF RANGE REFERENCE UNITS LAB L9000.9990 Normal BLD GAS TYPE ART LAB L9001.1000 L Normal SITE Brachial LAB L9001.1050 O2 Normal Delivery Dev Room Air LAB L9001.1104 ED Normal Results To LAB L9001.1105 Normal Time Given 1328 LAB L9001.1110 7.35-7.45 pH Normal - I-STAT 7.38 LAB L9001.1210 35-45 mmHg Normal pCO2 - ISTAT 44.8 LAB L9001.1310 75-100 mmHG Low 59 PO2 I-STAT LAB L9001.2300 22-26 mmol/L High HCO3 ISTAT 26.7 LAB L9001.2400 -2 to +2 mmol/L BE 2 Normal ISTAT LAB L9001.2415 mmol/L 28 Normal TOTAL CO2 ISTAT LAB L9001.2425 95-99 % Low 90 SO2 ISTAT Performed By: #### L9000.0800 #### [place] [facility] Point of Care [address] [place] [address] Observed: 10/19/2017 Status: F Source: SUSSY CULTURE, BLOOD (WB) 12:00 PM [facility] REPOSITORY BC No growth in 5 days. Performed By: #### M200.1000 #### [facility] [address] [place], [address] Observed: 10/19/2017 Status: F Source: SUSSY CULTURE, BLOOD (WB) 11:55 AM [facility] REPOSITORY BC No growth in 5 days. Performed By: #### M200.1000 #### [facility] [address] [place], [address] URINALYSIS, COMPLETE Collected: 10/19/2017 Status: F Source: SUSSY 11:15 AM [facility] REPOSITORY Order Comment: Order Date: 10/19/17 How was Urine Obtained? CLEAN CATCH TYPE CODE TESTS RESULT OUT OF RANGE REFERENCE UNITS LAB L400.3000 Yellow COLOR Normal Yellow LAB L400.3050 Clear Normal CLARITY Sl. Cloudy LAB L400.3200 Normal mg/dl Normal GLUCOSE, UR Normal LAB L400.3300 Negative mg/dL Normal BILIRUBIN URINE Negative LAB L400.3400 Negative mg/dl Normal KETONE UR Negative LAB L400.3465 1.002-1.030 Normal SP.GR. DIPSTX 1.015 LAB L400.3550 5.0 - 8.0 pH UR Normal 6.0 LAB L400.3600 Negative mg/dl High PROT DIPSTX 100 LAB L400.3700 Normal mg/dl Normal UROBILI Normal LAB L400.3750 Negative Normal NITRITE UR Negative LAB L400.3780 Negative /ul High OCCULT BLOOD-UR 150 LAB L400.3800 Negative /ul High LEUK 25 ESTERASE LAB L400.4050 0-5 /hpf WBC Normal 0-5 SEEN LAB L400.4100 0-5 /hpf Normal RBC-UA 10-25 SEEN LAB L400.4150 5-10 /hpf SQUAM Normal EPI 0-5 SEEN LAB L400.4300 None Seen /hpf 1+ Normal BACTERIA LAB L400.4350 <or=2+ /hpf 0 Normal MUCUS, URINE SEEN Performed By: #### L400.0001 #### [facility] [address] [place], [address] CBC W/DIFF, AUTOMATED Collected: 10/19/2017 Status: F Source: SUSSY 9:30 AM [facility] REPOSITORY TYPE CODE TESTS RESULT OUT OF RANGE REFERENCE UNITS LAB L100.1000 4.4-11.0 K/mm3 Normal WBC 10.1 LAB L100.1200 4.2-5.4 M/mm3 Normal RBC 4.69 LAB L100.1300 12.0-15.0 g/dl Normal HGB 13.9 LAB L100.1400 37-47 % Normal HCT 42.4 LAB L100.1500 81-99 fL Normal MCV 90.4 LAB L100.1600 27.0-32.0 pg Normal MCH 29.6 LAB L100.1700 32-36 g/gl Normal MCHC 32.8 LAB L100.1810 11.6-14.6 % Normal RDW CV 13.5 LAB L100.1820 35.1-43.9 fl High RDW SD 44.0 LAB L100.1900 150-450 K/mm3 Normal PLT 209 LAB L100.2000 6.2-12.0 fl Normal MPV 8.5 LAB L100.2100 47-70 % High NEUT% 96.3 LAB L100.2200 19-41 % Low LY% 2.6 LAB L100.2300 0-10 % Normal MONO% 0.9 LAB L100.2400 0-5 % Normal EO% 0.0 LAB L100.2500 0-1 % Normal BASO% 0.1 LAB L100.2550 0.0-0.9 % Normal IM GRAN % 0.100 Result Comment: IG% - Immature Granulocytes (promyelocytes, myelocytes and metamyelocytes) > 1% indicates that a LEFT SHIFT is Present. LAB L100.2620 2.0-7.7 X10 3/uL High Absolute Neut 9.8 LAB L100.2720 0.83-4.51 X10 3/ul Low Absolute Lymph 0.26 Performed By: #### L100.0100 #### [facility] [address] [place], [place], [id number] COMPREHENSIVE METABOLIC Collected: 10/19/2017 Status: F Source: SUSSY [facility] 9:30 AM [facility] REPOSITORY TYPE CODE TESTS RESULT OUT OF RANGE REFERENCE UNITS LAB L501.0100 70-110 mg/dL High GLU 141 Result Comment: Fasting Glucose result greater than or equal to 126 mg/dL suggests DIABETES MELLITUS per A.D.A. criteria. LAB L501.1000 7-18 mg/dL High BUN 23 LAB L501.1100 0.55-1.02 mg/dL High CREAT,SERUM 1.04 Result Comment: The validity of the calculated GFR AND GFRAA in patients over 70 years has not been determined. Clinical correlation is essential. LAB L501.1110 >60 mL/min Low EST GFR 54 Result Comment: Non- GFR Calc LAB L501.1115 >60 mL/min Normal EST GFR - AA 66 Result Comment: GFR Calc LAB L501.1255 ml/min Normal Estimated CRCL 38.50 LAB L501.1300 10-20 RATIO High BUN/CRE 22.1 LAB L501.1500 6.4-8. g/dL Normal 2 T PROT 7.8 LAB L501.1800 3.4-5. g/dL Normal 0 ALB 3.5 Result Comment: Please note revised Albumin AND Globulin reference range effective 2017. LAB L501.1950 2.2-4.2 g/dL High GLOB 4.3 LAB L501.2000 0.9-2.4 RATIO Low A/G 0.8 LAB L501.2200 8.5-10.1 mg/dL Normal CA 9.1 LAB L501.4100 15-37 U/L Normal AST 16 LAB L501.4305 45-117 U/L Normal ALK P 115 LAB L501.4405 12-78 U/L Normal ALT 20 LAB L501.4600 0.20-1.00 mg/dL Normal T BILI 0.30 LAB L501.5300 136-145 mmol/L Normal NA 140 LAB L501.5600 3.5-5.1 mmol/L Normal K 3.9 LAB L501.5900 98-107 mmol/L Normal CL 105 LAB L501.6100 21.0-32.0 mmol/L Normal CO2 27.0 LAB L501.6200 5-15 Normal GAP 8 Performed By: #### L500.4050 #### [facility] [address] [place], [address] LACTIC ACID Collected: 10/19/2017 Status: F Source: SUSSY 9:30 AM [facility] REPOSITORY Order Comment: Yes/No query for Sepsis Lactate Rule Y TYPE CODE TESTS RESULT OUT OF RANGE REFERENCE UNITS LAB L503.6005 0.4-2.0 mmol/L Normal LACTIC ACID 1.0 Performed By: #### L503.6005 #### [facility] [address] [place], [address] CHEST 1 VIEW Observed: 10/19/2017 Status: F Source: HEAD WATERS (PORTABLE) 9:00 AM [facility] REPOSITORY [facility] Imaging Services [address] [place] [address] Chest 1 View (Portable) MR#: [id number] Acct: [id number] Name: VEE HYATT Rep #: [id number] : 1940 F 76 From: Fan Benavidez MD PCP: Jose L Valenzuela MD Status: REG ER Study: Chest 1 View (Portable) Date of Exam: 10/19/17 Exam# [id number] Ordering Dr: Jose Guadalupe Hernandez MD STUDY: X-RAY CHEST REASON FOR EXAM: Female, 76 years old. Cough. Generalized illness. TECHNIQUE: Single AP portable view of the chest. COMPARISON: Comparison is made with prior study dated March 09, 2018. FINDINGS: There is elevation of the right hemidiaphragm. 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 There is new blunting of the left costophrenic angle with underlying infiltration and/or atelectasis. There is borderline cardiomegaly. Normal mediastinum and qiunton. Normal visualized pulmonary arteries. There is atherosclerotic tortuosity of the aortic arch and descending thoracic aorta. There is demineralization of the osseous structures. Normal visualized ribs, clavicles, and shoulders. There is no demonstrated abnormality of the visualized soft tissue structures of the upper abdomen. RAD/Chest 1 View (Portable) IMPRESSION: New small left pleural effusion with underlying infiltration and/or atelectasis. Electronically Signed: Fan Benavidez MD at 9:26 EST Tel [phone], Service support , CC: Jose Guadalupe Hernandez; Jose L Valenzuela MD Legal Recovery Specialist: Signed ABDOMEN/PELVIS WITHOUT Observed: 10/19/2017 Status: F Source: HEAD WATERS CONT 9:00 AM [facility] REPOSITORY [facility] Imaging Services [address] [place] [address] Abdomen/Pelvis without Cont MR#: [id number] Acct: [id number] Name: VEE HYATT Rep #: [id number] : 1940 F 76 From: Oren Monk DO PCP: Jose L Valenzuela MD Status: REG ER Study: Abdomen/Pelvis without Cont Date of Exam: 10/19/17 Exam# [id number] Ordering Dr: Jose Guadalupe Hernandez MD STUDY: CT ABDOMEN AND PELVIS WITHOUT CONTRAST REASON FOR EXAM: Female, 76 years old. Generalized illness and weakness RADIATION DOSAGE (If Supplied By Facility): CTDIvol = ( 13.34 ) mGy, DLP = ( 698.27 ) mGycm TECHNIQUE: Transaxial images were obtained from the dome of the diaphragm to the symphysis pubis without oral contrast, and without intravenous contrast. Sagittal and coronal images were reconstructed. Individualized dose optimization techniques were used for this CT. COMPARISON: None. FINDINGS: Elevated right hemidiaphragm. Lung bases are otherwise clear. Borderline cardiomegaly. Normal liver. There are surgical clips in the gallbladder fossa consistent with a prior cholecystectomy. Normal spleen. There is diffuse atrophy of the pancreas. Normal bilateral adrenal glands. Normal right kidney. Mid pole left nonobstructing stone measuring 4.8 mm. Exophytic hyperdense upper pole left renal cyst measuring 1.95 cm. Normal visualized stomach. Scattered gaseous distended loops of small bowel without obstruction; fluid-filled appearance. There are multiple colonic diverticula consistent with diverticulosis. There is non-visualization of the appendix. There is diffuse atherosclerotic calcification of the abdominal aorta, without a demonstrated aneurysm. Normal inferior vena cava. Normal retroperitoneum. Normal urinary bladder. Densely calcified large uterine fibroid. Normal abdominal wall. There are diffuse degenerative changes of the visualized lumbar spine. CT/Abdomen/Pelvis without Cont IMPRESSION: 1. Scattered fluid-filled loops of small bowel with scattered gaseous distention. No evidence of small bowel obstruction at this time. 2. Chronic diverticulosis without acute diverticulitis 3. Nonobstructing left nephrolith. Exophytic left renal cyst. 4. Nonvisualized appendix Electronically Signed: Oren Monk DO at 10:35 EST Tel , Service support , CC: Jose Guadalupe Hernandez; Jose L Valenzuela MD Legal Recovery Specialist: Signed CR-CHEST 1 VIEW Observed: 10/19/2017 Status: F Source: JUAREZ (PORTABLE) IMPORT 12:00 AM [facility] REPOSITORY Images were obtained outside of [facility] [id number] CT-ABDOMEN/PELVIS WITHOUT Observed: 10/19/2017 Status: F Source: JUAREZ CONT IMPORT 12:00 AM [facility] REPOSITORY Images were obtained outside of [facility] [id number] CT-CHEST WITHOUT Observed: 10/19/2017 Status: F Source: JUAREZ CONTRAST IMPORT 12:00 AM [facility] REPOSITORY Images were obtained outside of [facility] [id number] ABD INC DECUB Observed: 10/17/2017 Status: F Source: SUSSY AND/OR ERECT 2:20 PM [facility] REPOSITORY [facility] Imaging Services [address] [facility] [place] [address] Abd Inc Decub and/or Erect MR#: [id number] Acct: [id number] Name: VEE HYATT Rep #: [id number] : 1940 F 76 From: Guzman Parmar DO PCP: Jose L Valenzuela MD Status: REG CLI Study: Abd Inc Decub and/or Erect Date of Exam: 10/17/17 Exam# [id number] Ordering Dr: Jose L Valenzuela MD STUDY: X-RAY - ABDOMEN/PELVIS REASON FOR EXAM: Female, 76 years old. Nausea and vomiting. TECHNIQUE: AP supine and upright views of the abdomen and pelvis. COMPARISON: CT of the abdomen and pelvis, March 17, 2017. FINDINGS: Normal visualized lung bases. There is an unremarkable bowel gas pattern. Air and feces is seen throughout the colon. There is no evidence of obstruction or small bowel dilatation. There is no demonstrated free abdominal air. The visualized liver, spleen and kidneys are grossly normal in size and morphology. There is a small calcification overlying lower pole left kidney. Popcorn calcification in the pelvis consistent with uterine fibroid. There are diffuse degenerative changes of the visualized lumbar spine. There is a left artificial hip. RAD/Abd Inc Decub and/or Erect IMPRESSION: No evidence of acute intra-abdominal process. Electronically Signed: Guzman Parmar DO at 18:58 EST Tel [phone], Service support , CC: Jose L Valenzuela MD Legal Recovery Specialist: Signed CR-ABD INC DECUB Observed: 10/17/2017 Status: F Source: JUAREZ AND/OR ERECT IMPORT 12:00 AM [facility] REPOSITORY Images were obtained outside of [facility] [id number] ALLERGIES ALLERGIES DATE TYPE / CODE NAME / CODE REACTION SEVERITY SOURCE 10/09/2018 Drug hydrocodone/F006 Nausea Unknown [facility] Allergy/416 342241(RXNORM) [facility] 676778(SNOM Repository ED CT) 10/09/2018 Drug acetaminophen/F0 Nausea Unknown [facility] Allergy/416 68004033(RXNORM) [facility] 121411(SNOM Repository ED CT) 10/09/2018 Drug sulfamethoxazole Nausea Unknown [facility] Allergy/416 /O638772611(RX Hospital 747189(SNOM RM) Repository ED CT) 10/09/2018 Drug trimethoprim/F00 Nausea Unknown [facility] Allergy/246 6143298(RXNORM) Hospital 430425(SNOM Repository ED CT) 09/07/2018 Drug No Known Unknown [facility] Allergy/416 Allergies/F65766 Hospital 902922(SNOM 0388(RXNORM) Repository ED CT) Drug NO KNOWN [facility] Class/60549 ALLERGIES Other [place] 1003(SNOMED Repository CT) NG/41687750 NO KNOWN [facility] 6(SNOMED ALLERGIES Health [facility] CT) Repository ENCOUNTERS ENCOUNTERS ADMIT/DISCHARGE ACCOUNT NUMBER ADMITTING ENCOUNTER LOCATION SOURCE CLASS 10/09/2018/10/09/19 [id number] Emergency [place] [facility] [facility] ding:ED Repository 09/12/2018/09/28/19 [id number] Perez Moseley [facility] Inpatient [place] [facility] Encounter [facility] ding:TCURoom Repository : NKZ46Npj: 1 09/09/2018 [id number] Royaky, Ambulatory BMSBuilding: [place] Rommel BMS.[facility] Repository 09/09/2018 [id number] Maineeletsky, Ambulatory BMSBuilding: [place] Rommel BMS.[facility] Repository 09/09/2018 [id number] Maineeletsky, Ambulatory BMSBuilding: [place] Rommel BMS.[facility] Repository 09/09/2018 [id number] Tereletsky, Ambulatory BMSBuilding: [place] BMS.[facility] Repository 09/09/2018/09/12/20 [id number] Maineeletsky, Inpatient [place] 18 Rommel Encounter [facility] ding:[id number] Repository : IB635Rtt: 1 09/07/2018/09/07/20 [id number] Emergency [place] [facility] 18 [facility] ding:ED Repository 09/07/2018/09/07/20 [id number] Ambulatory BMSBuilding: [place] 18 BMS.CF.[facility] Repository 05/01/2018 [id number] Ambulatory [facility] ding:MFPLAB Repository 01/24/2018 [id number] Ambulatory [facility] ding:MFPLAB Repository 01/01/2018/01/04/20 [id number] Ambulatory [address] Repository 01/01/2018/01/02/20 [id number] Ambulatory [address] Repository 01/01/2018/01/02/20 [id number] Ambulatory [address] Repository 12/31/2017 [id number] Ambulatory [facility] ding:MFPLAB Repository 11/03/2017/11/04/19 [id number] Emergency [place] [address] ding:ED Repository 11/03/2017/11/17/19 [id number] Perez Moseley [facility] Inpatient [place] [address] ding:TCURoom Repository : [id number]: 1 10/26/2017/11/03/19 [id number] AWENDER, Inpatient [place] 18 RAIZA S Encounter [facility] Repository 10/26/2017/11/03/19 [id number] AWJACOB, H S Inpatient [place] [address] Encounter [facility] MEDICAL Repository CENTERBuildi nARoom: 5209Bed: 10/26/2017 [id number] Jade, Ambulatory BMSBuilding: [place] Rommel BMS..[facility] Repository 10/26/2017 [id number] Jade, Ambulatory BMSBuilding: [place] BMS.[facility] Repository 10/26/2017/10/26/19 [id number] Jade, Ambulatory [place] [facility] ding:[id number] Repository : FG502Wdn: 1 10/20/2017/10/20/19 [id number] Ambulatory BMSBuilding: [place] 18 [facility] Repository 10/20/2017/10/20/19 [id number] Ambulatory BMSBuilding: [place] [facility] Repository 10/19/2017 [id number] Jade, Ambulatory BMSBuilding: [place] Rommel BMS.[facility] Repository 10/19/2017 [id number] Maineeletsevette, Ambulatory BMSBuilding: [place] BMS.[facility] Repository 10/19/2017/10/19/19 [id number] Tereletsky, Emergency [place] S[place] 18 [facility] ding:DR5Unqs Repository : JJ199Gil: 1 10/17/2017 [id number] Ambulatory [facility] ding:MTRAD Repository PAYERS PAYERS ENCOUNTER GUARANTOR PAYER SUBSCRIBER SOURCE 10/09/2018 VEE A [id number] Primary VEE A LANCEDOB: [place] TALIB Insurance:LENARD [id number] 1960[address]Eyx: (330) OPolicy Number: Repository [phone] () [id number] Date:4460-32-61DF [address], [place] [address]WN: 10/09/2018 Secondary NOT GIVENUNK [place] Insurance:SELF PAY [facility] Number: Effective Repository Date:2018-10-09 09/12/2018 VEE Maggy [id number] Primary VEE A LANCEDOB: [place] TAL[place] Insurance:CACHE [id number] [address]Lwv: (330) OPolicy Number: Repository [phone] () [id number] Date:9849-97-48CP [address], [place] [address]MK: 09/12/2018 Secondary NOT GIVENUNK [place] Insurance:SELF PAY [facility] Number: Effective Repository Date:2018-09-12 09/09/2018 VEE A [id number] Primary VEE A LANCEDOB: [place] TAL[place] Insurance:LENARD [id number] [address]Pdo: (330) OPolicy Number: Repository [phone] () [id number] Date:2162-92-41RN [address], [place] [address]FM: 09/09/2018 Secondary NOT GIVENUNK [place] Insurance:SELF PAY [facility] Number: Effective Repository Date:2018-09-09 09/09/2018 VEE A [id number] Primary VEE A LANCEDOB: [place] T[place] Insurance:LENARD [id number] [facility] [address]Hcz: (330) OPolicy Number: Repository [phone] () [id number] Date:8767-99-20RN [facility] [address] [address]VS: 09/09/2018 Secondary NOT GIVENUNK [place] Insurance:SELF PAY [facility] Effective Repository Date:2018-09-09 09/09/2018 VEE A [id number] Primary VEE A LANCEDOB: [place] Insurance:[place] [id number] [id number]: (330) OPolicy Number: Repository [phone] () [id number] Date:8246-68-33KE [facility] [address] [place] [address]DR: 09/09/2018 Secondary NOT GIVENUNK [place] Insurance:SELF PAY [facility] Number: Effective Repository Date:2018-09-09 09/09/2018 VEE A [id number] Primary VEE A LANCEDOB: [place] Insurance:CACHE [id number] [place] [id number]: (330) OPolicy Number: Repository [phone] () [id number] Date:9409-88-46YI [address], [place] [address]JH: 09/09/2018 Secondary NOT GIVENUNK [place] Insurance:SELF PAY [facility] Number: Effective Repository Date:2018-09-09 09/09/2018 VEE A [id number] Primary VEE A LANCEDOB: [place] T[place] Insurance:LENARD [id number] [id number]: (330) OPolicy Number: Repository [phone] () [id number] Date:3102-19-16JZ [address], [place] [address]CI: 09/09/2018 Secondary NOT GIVENUNK [place] Insurance:SELF PAY [facility] Number: Effective Repository Date:2018-09-09 09/07/2018 VEE A [id number] Primary VEE A LANCEDOB: [place] TAL[place] Insurance:CACHE [id number] Hospital [address]Ayy: (330) OPolicy Number: Repository [phone] () [id number] Date:9274-25-48IX [address], [place] [address]TY: 09/07/2018 Secondary NOT GIVENUNK [place] Insurance:SELF PAY [facility] Number: Effective Repository Date:2018-09-07 09/07/2018 VEE A [id number] Primary VEE A LANCEDOB: [place] Insurance:CACHE [facility] [address]Cfr: (330) OPolicy Number: Repository [phone] () [id number] Date:7961-50-25OX [facility] [address] [address]BE: 09/07/2018 Secondary NOT GIVENUNK [place] Insurance:SELF PAY [facility] Number: Effective Repository Date:2018-09-07 05/01/2018 Vee A [id number] Primary VEE A LANCEDOB: [place] Insurance:CACHE [id number] [facility] [address]Rmp: (330) OPolicy Number: Repository [phone] () [id number] Date:7987-64-89[address] [address]GZ: 05/01/2018 Secondary NOT GIVENUNK [place] Insurance:SELF PAY [facility] Number: Effective Repository Date:2018-05-01 01/24/2018 Vee A [id number] Primary VEE A LANCEDOB: [place] Insurance:CACHE [id number] Clinic Euclid Hospital [address]Dsq: (330) OPolicy Number: Repository [phone] () [id number] Date:8277-67-97[address] [address]HF: 01/24/2018 Secondary NOT GIVENUNK [place] Insurance:SELF PAY [facility] Effective Repository Date:2018-01-24 12/31/2017 Vee A [id number] Primary VEE A LANCEDOB: [place] Insurance[place] [id number] [address]Tel: (330) OPolicy Number: Repository [phone] () [id number] Date:9549-52-96[address], [place] [address]NY: 12/31/2017 Secondary NOT GIVENUNK [place] Insurance:SELF PAY [facility] Number: Effective Repository Date:2017-12-31 11/03/2017 Vee A [id number] Primary VEE A LANCEDOB: [place] Insurance:[place] [id number] [place] [id number]: (330) OPolicy Number: Repository [phone] () [id number] Date:2355-62-83[address] [address]BS: 11/03/2017 Secondary NOT GIVENUNK [place] Insurance:SELF PAY [facility] Number: Effective Repository Date:2017-11-03 11/03/2017 Vee A [id number] Primary VEE A LANCEDOB: [place] Insurance:[place] [id number] Ville [address]Tel: (330) OPolicy Number: Repository [phone] () [id number] Date:7410-01-70[address], [place] [address]BT: 11/03/2017 Secondary NOT GIVENUNK [place] Insurance:SELF PAY [facility] Number: Effective Repository Date:2017-11-03 10/26/2017 VEE A LANCEDOB: Primary VEE A LANCEDOB: [facility] [id number] Rep[facility] [place], [place] Number: [id number]: [phone] [id number] [phone] () Date: 10/26/2017 Vee A [id number] Primary VEE A LANCEDOB: [place] Insurance:CACHE [id number] Clinic Euclid Hospital [address]Gbh: (295) [facility] [phone] () [id number] Date:5585-19-39[address], [place] [address]MM: 10/26/2017 Secondary NOT GIVENUNK [place] Insurance:SELF PAY [facility] Number: Effective Repository Date:2017-10-26 10/26/2017 Vee A [id number] Primary VEE A LANCEDOB: [place] Insurance:CACHE [id number] Clinic Euclid Hospital [address]Ctw: (166) [facility] Number: Repository [phone] () [id number] Date:5127-43-52[address], [place] [address]ER: 10/26/2017 Secondary NOT GIVENUNK [place] Insurance:SELF PAY [facility] Number: Effective Repository Date:2017-10-26 10/26/2017 Vee A [id number] Primary VEE A LANCEDOB: [place] Insurance:LENARD [id number] Clinic Euclid Hospital [address]Sbb: (921) [facility] [phone] () [id number] Date:7424-85-16[address], [place] [address]RL: 10/26/2017 Secondary NOT GIVENUNK [place] Insurance:SELF PAY [facility] Number: Effective Repository Date:2017-10-25 10/20/2017 Vee [id number] Primary VEE A LANCEDOB: [place] Insurance:LENARD [id number] [place] [id number]: (330) OPolicy Number: Repository [phone] () [id number] Date:9019-43-51[address], [place] [address]LY: 10/20/2017 Secondary NOT GIVENUNK [place] Insurance:SELF PAY [facility] Number: Effective Repository Date:2017-10-20 10/20/2017 Veelacho [id number] Primary VEE A LANCEDOB: [place] Insurance:[place] [id number] [place] [id number]: (058) OPolicy Number: Repository [phone] () [id number] Date:7274-57-58[address], [place] [address]HM: 10/20/2017 Secondary NOT GIVENUNK [place] Insurance:SELF PAY [facility] Number: Effective Repository Date:2017-10-20 10/19/2017 Vee A [id number] Primary VEE A LANCEDOB: [place] Insurance:[place] [id number] [place] [id number]: ([phone]) OPolicy Number: Repository [phone] () [id number] Date:0287-01-14[address], [place] [address]ZB: 10/19/2017 Secondary NOT GIVENUNK [place] Insurance:SELF PAY [facility] Number: Effective Repository Date:2017-10-19 10/19/2017 Vee Maggy [id number] Primary VEE A LANCEDOB: [place] Insurance:LENARD [id number] [address]Agv: (330) OPolicy Number: Repository [phone] () [id number] Date:6440-51-46[address], [place] [address]SO: 10/19/2017 Secondary NOT GIVENUNK [place] Insurance:SELF PAY [facility] Number: Effective Repository Date:2017-10-19 10/19/2017 Vee A [id number] Primary VEE A LANCEDOB: [place] Insurance:[place] [id number] [place] [id number]: (330) OPolicy Number: Repository [phone] () [id number] Date:1560-03-20IM [address], [place] [address]II: 10/19/2017 Secondary NOT GIVENUNK [place] Insurance:SELF PAY [facility] Number: Effective Repository Date:2017-10-19 10/17/2017 Vee Winter [id number] Primary VEE A LANCEDOB: [place] Insurance:[place] [id number] [place] [id number]: (330) OPolicy Number: Repository [phone] () [id number] Date:4890-35-26[address], [place] [address]KH: 10/17/2017 Secondary NOT GIVENUNK [place] Insurance:SELF PAY [facility] Number: Effective Repository Date:2017-10-17
== END 2018-09-07 12:37 | disposition home or self-care (01) ==
LOC: ED 10:12
PROVIDERS: Emergency Provider Emergency Medicine; Family Provider Family Medicine; PCP Family Medicine
DX: N39.0 Urinary tract infection, site not specified (principal); B96.89 Other specified bacterial agents as the cause of diseases classified elsewhere; R60.0 Localized edema; I25.10 Atherosclerotic heart disease of native coronary artery without angina pectoris; I11.9 Hypertensive heart disease without heart failure; E11.9 Type 2 diabetes mellitus without complications; K21.9 Gastro-esophageal reflux disease without esophagitis; Z79.82 Long term (current) use of aspirin; Z79.899 Other long term (current) drug therapy
CPT/HCPCS: 80048; 81001; 85025; 87077; 87086; 87088; 87186; 93971; 96365; 96375; 99284; J7030; A4216; J2405

== ENCOUNTER 2018-09-09 10:43 | Inpatient (IN) | payer MEDICARE, SELFPAY ==
[2018-09-09] VITALS (12 sets, daily range): BP systolic 125–164; BP diastolic 66–86; PULSE 81–98; RESP 16–32; TEMP 36.8–37.2; O2SAT 88–99; BMI 28.3
--- NOTE | 2018-09-09 11:22 | EKG12_ITS ---
Test Reason : NAUSEA Blood Pressure : / mmHG Vent. Rate : 083 BPM Atrial Rate : 083 BPM P-R Int : 166 ms QRS Dur : 086 ms QT Int : 394 ms P-R-T Axes : 058 -06 037 degrees QTc Int : 462 ms Normal sinus rhythm Normal ECG Confirmed by NAVIN ARRIOLA, JUAN C ([id number]), acquisition editor JUDIE SUAREZ ([id number]) on 09/13/2018 1:19:02 PM Referred By: Rommel Hansen Confirmed By:JUAN C HOLDEN MD
--- NOTE | 2018-09-09 11:31 | RAD_ITS ---
STUDY: X-RAY CHEST REASON FOR EXAM: Female, 77 years old. SOB and cough TECHNIQUE: Single frontal view of the chest. COMPARISON: November 04, 2017 FINDINGS: Stable elevation of the right hemidiaphragm. The lungs are clear and expanded. There is no demonstrated pleural abnormality. Stable cardiomediastinal silhouette. Normal mediastinum and quinton. Normal visualized pulmonary arteries. Normal visualized aortic arch and descending thoracic aorta. Normal visualized thoracic spine. Normal visualized ribs, clavicles, and shoulders. There is no demonstrated abnormality of the visualized soft tissue structures of the upper abdomen. RAD/Chest 1 View (Portable) IMPRESSION: Stable elevation of the right hemidiaphragm. No acute pulmonary findings. Electronically Signed: Mendoza Ramirez MD at 11:45 EST Tel , Service support ,
[2018-09-09 12:07] LABS: Absolute Lymphocyte Count 0.69 X10^3/ul (0.83-4.51); Absolute Neutrophil Count 8.6 X10^3/uL (2.0-7.7); Hematocrit 33.5 % (37-47); Hemoglobin 11.3 g/dl (12.0-15.0); Lymphocyte # 0.69 X10^3/ul (4.0); Lymphocyte % 7.1 % (19-41); Mean Corp Hgb Conc 33.7 g/gl (32-36); Mean Corpuscular Hgb 29.4 pg (27.0-32.0); Mean Platelet Vol. 8.6 fl (6.2-12.0); Monocyte# 0.32 X10^3/uL; Monocyte% 3.3 % (0-10); Neutrophil # 8.63 X10^3/uL (2.7-7.7); Platelet Count 259 K/mm3 (150-450); RBC Distribution Width CV 12.9 % (11.6-14.6); RBC Distribution Width SD 41.3 fl (35.1-43.9); Red Blood Count 3.85 M/mm3 (4.2-5.4); White Blood Count 9.7 K/mm3 (4.4-11.0)
[2018-09-09 12:11] LABS: POSITIVE COUNT NO; POSITIVE DIFFERENTIAL NO; POSITIVE MORPHOLOGY NO
[2018-09-09 12:16] LABS: International Normalized Ratio 1.1
[2018-09-09 12:17] LABS: Partial Thromboplast Time 26.3 Seconds (24.1-36.2)
[2018-09-09 12:18] LABS: ALB/GLOB Ratio 0.8 RATIO (0.9-2.4); AST(SGOT) 23 U/L (15-37); Alanine Aminotransfer ALT/SGPT 24 U/L (13-56); Albumin, Serum 3.4 g/dL (3.2-5.0); Alkaline Phosphatase 113 U/L (45-117); Anion Gap 7 (5-15); BUN 19 mg/dL (7-18); BUN/Creat Ratio 16.4 RATIO (10-20); Calcium,Total 9.3 mg/dL (8.5-10.1); Chloride 96 mmol/L (98-107); Creatinine, Serum 1.16 mg/dL (0.55-1.02); EST Glomerular Filtration Rate 48 mL/min (>60); Est Glom Filt Rate - Afr Amer 58 mL/min (>60); Estimated Creatinine Clearance 33.96 ml/min; Glucose 123 mg/dL (74-106); Potassium 3.9 mmol/L (3.5-5.1); Protein, Total 7.4 g/dL (6.4-8.2); Sodium Level 131 mmol/L (136-145)
[2018-09-09 12:25] LABS: Lactic Acid 0.9 mmol/L (0.4-2.0)
[2018-09-09 12:26] LABS: Mucous, Urine 0 SEEN /hpf (<or=2+)
[2018-09-09] MEDS: Ondansetron 4 MG/2 ML Vial IV ×2 (12:35→22:49)
[2018-09-09 12:38] LABS: Glucose, Dipstick Normal (Normal); Ketone-Dipstick 5 mg/dl (Negative); Leukocyte Esterase-Dipstick 25 /ul (Negative); Nitrite-Dipstick Positive (Negative); Occult Blood-Urine 25 /ul (Negative); Protein-Dipstick 30 mg/dl (Negative); Specific Gravity, Urine 1.015 (1.002-1.030); Urine Clarity Sl. Cloudy (Clear); Urine Urobilinogen 4 mg/dl (Normal)
[2018-09-09 12:41] LABS: Color, Urine SEE COMMENT BELOW (Yellow); Urine Bilirubin Dipstick 3 mg/dL (Negative)
[2018-09-09 12:44] LABS: Amorphous Sediment 1+; Bacteria 2+ /hpf (None Seen); Red Blood Cells-Urine 0-5 SEEN /hpf (0-5); Squamous Epithelial Cells - UA 0-5 SEEN /hpf (5-10); White Blood Cells 0-5 SEEN /hpf (0-5)
[2018-09-09] MEDS: Ceftriaxone 1 GM/50 ML BAG IV (13:28)
--- NOTE | 2018-09-09 14:06 | ED.DCSUM_ITS ---
- ER Visit Summary Date of Service: 09/09/18 Chief Complaint: Confusion History of Present Illness: The patient is a 77 F who was seen here a couple of days ago and diagnosed with a urinary tract infection. She was given Bactrim and narcotics. Son states that she has not been eating well and has had some vomiting. She has not kept down the antibiotics. He saw her spraying Windex on her feet today. He noticed that she was confused and weak. She does have some lower extremity edema. No fevers. No history of dementia in the past. Physical Examination: Vital signs reviewed. HEENT exam unremarkable. Heart is regular rate and rhythm without murmurs. Lungs are clear to auscultation. Abdomen is soft and nontender. Extremities reveal no edema. Skin exam normal. Neurologic exam normal. Test Results: Chest x-ray reveals chronic changes. EKG is sinus rhythm with no changes. White blood cell count normal. Hemoglobin 11.3. Creatinine 1.16. Sodium 131. Urinalysis reveals positive nitrites. Lactate normal. Emergency Department Course and Treatment: I reviewed the patient's urine culture and it is growing Citrobacter. She was given Zofran. It could be the medications or the UTI causing the patient's symptoms. I feel she requires admission. I gave her IV Rocephin. She will be admitted to the hospital Treatment Plan: [] Disposition: Admit Impression: UTI, delirium This note was generated with Instant API dictation software. It may contain incorrect words, spelling, and punctuation that were not noted in review of the chart prior to signing ED Disposition - Plan for ED Patient: Chief Complaint: Confusion Referrals: Jose L Valenzuela MD [Primary Care Provider] -
--- NOTE | 2018-09-09 14:48 | NURSING ---
ASSISTED TO BED W/ MEDICAL SCRIBE FROM ER, HOB ELEVATED. CALL LIGHT IWTHIN REACH, PT DENIES FURTHER NEEDS.
[2018-09-09] MEDS: 0.9% Normal Saline 1,000 ML 125 ML IV ×2 (16:15→23:56)
--- NOTE | 2018-09-09 19:25 | PCM.HP.STD ---
Problem List (1) Generalized weakness Status: Acute (2) Confusion Status: Acute History of Present Illness Date of Admission: 09/09/18 Chief Complaint: Confusion, generalized weakness The patient is a 77 year old F was seen in the emergency room today at [facility] after being brought in at the direction of her son due to mild confusion at home and generalized weakness. Patient's son also states that the patient has been having dry heaves over the last 48 hours and has not eaten or drank anything substantial since Sunday09/07/18. Patient is a poor informant although she does answer most questions appropriately. Patient denies any chest pain, shortness of breath, cough, fever, chills, or dysuria. Patient had been diagnosed several days ago as having a urinary tract infection was placed on Bactrim by her PCP. For the last 2 days according to the son she has not been able to take her Bactrim. Urine culture noted in her medical record from 09/07/18 is positive for Citrobacter which is susceptible to a wide variety of antibiotics. Patient's son states that the patient was not making sense at times today and brought her in for evaluation. Workup in the emergency room included a CBC which was markable for a hemoglobin of 11.3, otherwise it was unremarkable. Patient's chemistry profile showed a slightly elevated creatinine at 1.16, slightly elevated BUN at 19, sodium of 131, and a glucose of 123. Urinalysis was positive for nitrites, leukocyte esterase was positive at 25, +2 bacteria was noted in the urine, 0-5 WBCs and 0-5 RBCs were noted. Patient was afebrile, lactic acid was normal. O2 saturation on room air was 88%. Chest x-ray was performed which showed a stable elevation of the right hemidiaphragm and no acute pulmonary findings. Patient will be placed in observation status for dehydration, generalized weakness, and cystitis. She will receive IV fluids and IV antibiotics and be seen by PT and OT. Past Medical History Past Medical History (Chronic Problems): Chronic Problems Diaphragmatic hernia (Chronic) Diabetes mellitus (Chronic) Coronary artery disease (Chronic) Obesity (Chronic) GERD (gastroesophageal reflux disease) (Chronic) Hx of appendectomy (Chronic) Benign essential HTN (Chronic) Depression (Chronic) HLD (hyperlipidemia) (Chronic) Overweight (BMI 25.0-29.9) (Chronic) CAD (coronary artery disease) (Chronic) Diabetes mellitus, type II (Chronic) Hyponatremia (Chronic) also has chronic mild hyponatremia Traumatic closed nondisplaced fracture of neck of left femur (Chronic) Status post closed reduction with internal fixation (Chronic) left femur 06/22, Dr Spears, [facility] Tinea unguium (Chronic) Dyskinesia, tardive (Chronic) Brain aneurysm (Chronic) Hypertension (Chronic) Diabetic neuropathy (Chronic) Allergies No Known Allergies Allergy (Verified 09/09/18 10:44) Home Medications: Ambulatory Orders Medication Instructions Recorded Fluoxetine [Prozac] 60 mg PO DAILY 03/17/17 Lorazepam [Ativan] 1 mg PO BID 03/17/17 Losartan Potassium 50 mg PO DAILY 03/17/17 Pantoprazole Sodium [Protonix] 20 mg PO DAILY 03/17/17 Pramipexole Di-HCl [Pramipexole 0.75 mg PO QHS 03/17/17 Dihydrochloride] Simvastatin 40 mg PO QHS 03/17/17 Minoxidil [Loniten] 2.5 mg PO BID 10/19/17 Melatonin 10 mg PO QHS tablet 11/13/17 Furosemide [Lasix] 20 mg PO DAILY 09/07/18 Phenazopyridine [Pyridium] 200 mg PO TID #9 tab 09/07/18 Smz/Tmp Ds [Bactrim Ds] 1 tab PO BID #14 tab 09/07/18 Spironolactone [Aldactone] 25 mg PO DAILY 09/07/18 Aspirin [Aspirin, Baby] 81 mg PO DAILY@0800 09/09/18 Clonidine HCl [Catapres] 0.05 mg PO BID 09/09/18 Nystatin Powder [Mycostatin Powder] 1 applic TOPICAL BID PRN 09/09/18 Surgical History: appendectomy, cholecystectomy, herniorrhaphy, tonsillectomy, - - 06/22/15 left hip CRIF Psychiatric History: Anxiety, Depression 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 Denies: Anorexia, Chills, Fever, Night Sweats, Weight Change Eyes: Denies: Cataracts, Conjunctivae Inflammation, Double vision, Drainage HEENT: Denies: Difficulty Swallowing, Dysphasia, Ear Pain, Eye Pain, Hearing Changes, Nasal bleeding, Nasal Congestion, Post Nasal Drip Cardiovascular: Denies: Chest Pain, Claudication, Chest Pressure, Chest Tightness, Edema, Heaviness, Palpitations, Paroxysmal Noc. Dyspnea, Syncope Respiratory: Denies: Cough, Hemoptysis, Pleuritic Pain, Shortness of Breath, Shortness of breath at rest, Shortness of breath upon exertion, Sputum production, Wheezing Gastrointestinal: Reports: Nausea, - - Positive for dry heaves off and on over the last 48 hours, - - Positive history of large diaphragmatic hernia which was not surgically reduced. Denies: Abdominal Pain, Constipation, Diarrhea, Hematemesis, Hematochezia, Melena, Vomiting Genitourinary: Denies: Dysuria, Frequency, Hematuria, Hesitancy, Incontinence, Nocturia, Urgency Gynecological: Denies: Breast symptoms Musculoskeletal: Denies: Back Pain, Foot Pain, Hand Pain, Joint Pain, Joint stiffness, Joint swelling, Joint Tenderness, Leg Pain Skin: Denies: Dryness, Pruritis, Rash Neurological: Denies: Blurred vision, Double vision, Change in Speech, Slurred speech, Difficulty swallowing, Focal weakness, Incoordination, Numbness, Tingling, Tremor, Seizures Psychiatric: Denies: Anxiety, Depression, Homicidal Ideations, Suicidal Ideations Endocrine: Denies: Change in Body Habitus, Heat/ Cold Intolerance, Polydipsia, Polyuria Hematologic/ Lymphatic: Denies: Adenopathy, Anemia, Easy Bruising, Easy Bleeding, Petechiae, Purpura VTE Information - Inpt Only VTE Present on Admission: No VTE Mechan Device Prophylaxis: None VTE Pharm Prophylaxis ordered?: Yes - Physical Exam General: Alert, Oriented x3, Cooperative, No apparent distress, Well developed, - - She is a poor informant HEENT: Atraumatic, PERRLA, EOMI, Normocephalic Oral: Dry Mucosa Neck: Supple, No JVD, Negative Carotid Bruits, No Nuchal Rigidity, Trachea Midline, Thyroid Normal Size and Texture Lungs: Clear to auscultation, Normal air movement, No rhonchi, No wheeze, No rales Cardiovascular: Regular rate, Regular Rhythm, Normal S1, Normal S2, No murmurs, No Ectopic Activity, PMI Normal, No rub noted, No Gallop Abdomen: Bowel Sounds Present, Soft, Non Tender, Non-Distended, No hernias noted Extremities: No clubbing, Capillary Refill Less than 3 Seconds, Edema - Severe generalized edema is noted over the patient's lower extremities-nonpitting in nature Skin: No rashes, No breakdown Neurological: Cranial nerves II-XII grossly intact, Neuro grossly intact, Sensory exam intact to light touch and pain Psych/Mental Status: Appropriate, Flat Affect, - - Patient is alert and responds appropriately to most questions, she is a poor informant Vital Signs Temp Pulse Resp BP Pulse Ox 98.3 F 89 20 H 153/85 H 99 09/09/18 16:02 09/09/18 18:12 09/09/18 18:58 09/09/18 16:02 09/09/18 18:12 Oxygen Flow Rate (L/min) 2.5 Oxygen Delivery Method Nasal Cannula Weight: 74.843 kg Body Mass Index (BMI) 28.3 Finger Stick Blood Glucose 176 Laboratory Tests Past 24 Hrs 09/09/18 09/09/18 09/09/18 11:45 11:45 11:45 WBC 9.7 RBC 3.85 L Hgb 11.3 L Hct 33.5 L MCV 87.0 MCH 29.4 MCHC 33.7 RDW 12.9 RDW Differential 41.3 Plt Count 259 MPV 8.6 Immature Gran % (Auto) 0.600 Neut % (Auto) 89.0 H Lymph % (Auto) 7.1 L [place] % (Auto) 3.3 Eos % (Auto) 0.0 Baso % (Auto) 0.0 Absolute Neuts (auto) 8.6 H Absolute Lymphs (auto) 0.69 L Total Counted Not Reportable PT 14.0 INR 1.1 APTT 26.3 Sodium 131 L Potassium 3.9 Chloride 96 L Carbon Dioxide 28.0 Anion Gap 7 BUN 19 H Creatinine 1.16 H Estim Creat Clear Calc 33.96 Est GFR (MDRD) Af Amer 58 L Est GFR (MDRD) Non-Af 48 L BUN/Creatinine Ratio 16.4 Glucose 123 H Lactic Acid Calcium 9.3 Total Bilirubin 0.40 AST 23 ALT 24 Alkaline Phosphatase 113 Total Protein 7.4 Albumin 3.4 Globulin 4.0 Albumin/Globulin Ratio 0.8 L Urine Color Urine Clarity Urine pH Ur Specific [place] Urine Protein Urine Glucose (UA) Urine Ketones Urine Occult Blood Urine Nitrite Urine Bilirubin Urine Urobilinogen Ur Leukocyte Esterase Urine RBC Urine WBC Ur Squamous Epith Cells Amorphous Sediment Urine Bacteria Urine Mucus 09/09/18 09/09/18 11:45 12:00 WBC RBC Hgb Hct MCV MCH MCHC RDW RDW Differential Plt Count MPV Immature Gran % (Auto) Neut % (Auto) Lymph % (Auto) [place] % (Auto) Eos % (Auto) Baso % (Auto) Absolute Neuts (auto) Absolute Lymphs (auto) Total Counted PT INR APTT Sodium Potassium Chloride Carbon Dioxide Anion Gap BUN Creatinine Estim Creat Clear Calc Est GFR (MDRD) Af Amer Est GFR (MDRD) Non-Af BUN/Creatinine Ratio Glucose Lactic Acid 0.9 Calcium Total Bilirubin AST ALT Alkaline Phosphatase Total Protein Albumin Globulin Albumin/Globulin Ratio Urine Color SEE COMMENT BELOW Urine Clarity Sl. Cloudy Urine pH 5.0 Ur Specific [place] 1.015 Urine Protein 30 H Urine Glucose (UA) Normal Urine Ketones 5 H Urine Occult Blood 25 H Urine Nitrite Positive H Urine Bilirubin 3 H Urine Urobilinogen 4 H Ur Leukocyte Esterase 25 H Urine RBC 0-5 SEEN Urine WBC 0-5 SEEN Ur Squamous Epith Cells 0-5 SEEN Amorphous Sediment 1+ Urine Bacteria 2+ Urine Mucus 0 SEEN Assessment/Plan All Active Problems Confusion (Acute) Influenza (Resolved) Takotsubo syndrome (Resolved) Gastroenteritis (Resolved) Hypoxia (Acute) Generalized weakness (Acute) Abdominal pain (Resolved) Diarrhea (Resolved) #1 dehydration-secondary to poor oral intake over the last several days, etiology of the patient's nausea and dry heaves are unknown at this time, patient will be placed in observation status on MedSur 3, she will be given IV fluids, her oral diuretics will be held. Labs will be monitored #2 generalized weakness-probably secondary to dehydration and cystitis, she will need to be seen by PT and OT, patient lives alone, according to the patient's son, patient is usually independent and does her own driving and takes care of her own bills and her home. #3 cystitis-from Citrobacter, patient was given IV Rocephin in the emergency room, I will maintain her on IV Ancef for now, patient is afebrile, I do not believe she is septic, and her white blood cell count is normal. #4 hypertension-patient will remain on her present medications except for her diuretics #5 hypoxia-etiology unclear, patient has a large diaphragmatic hernia and this may be causing some respiratory embarrassment. O2 sat will be monitored #6 hyperlipidemia #7 depression-patient is unable to tell his examiner why she is taking Prozac #8 insomnia-patient asked for something for sleep, she does take Ativan for anxiety, she had been on Ambien at one time but her son does not want her on this medication and is worried about her taking this medication, I decided to place her on Vistaril at bedtime to see if this would help her sleep. Patient takes excessive amounts of melatonin at night for sleep which does not help-she states that she sometimes takes 20 mg at a time. #9 past history of cardiomyopathy-it appears patient had a diagnosis of Takotsubo's cardiomyopathy at one time, her last echo showed a normal EF and this was performed in September 2017. #10 large diaphragmatic hernia radiating into the right anterior thoracic cavity-again patient has been evaluated concerning this before and has declined surgery due to the risk. #11 chronic lymphedema-it is possible that the patient's chronic leg edema is secondary to her use of minoxidil, we will use Preston wraps on the patient, she has [id number] compression stockings at home which she wears Code Visit OBSV E&M: [id number] Initial observation care L3
--- NOTE | 2018-09-09 19:30 | HP.PCM_ITS ---
Problem List (1) Generalized weakness Status: Acute (2) Confusion Status: Acute History of Present Illness Date of Admission: 09/09/18 Chief Complaint: Confusion, generalized weakness The patient is a 77 year old F was seen in the emergency room today at [facility] after being brought in at the direction of her son due to mild confusion at home and generalized weakness. Patient's son also states that the patient has been having dry heaves over the last 48 hours and has not eaten or drank anything substantial since Sunday09/07/18. Patient is a poor informant although she does answer most questions appropriately. Patient denies any chest pain, shortness of breath, cough, fever, chills, or dysuria. Patient had been diagnosed several days ago as having a urinary tract infection was p laced on Bactrim by her PCP. For the last 2 days according to the son she has not been able to take her Bactrim. Urine culture noted in her medical record from 09/07/18 is positive for Citrobacter which is susceptible to a wide variety of antibiotics. Patient's son states that the patient was not making sense at times today and brought her in for evaluation. Workup in the emergency room included a CBC which was markable for a hemoglobin of 11.3, otherwise it was unremarkable. Patient's chemistry profile showed a slightly elevated creatinine at 1.16, slightly elevated BUN at 19, sodium of 131, and a glucose of 123. Urinalysis was positive for nitrites, leukocyte esterase was positive at 25, +2 bacteria was noted in the urine, 0-5 WBCs and 0- 5 RBCs were noted. Patient was afebrile, lactic acid was normal. O2 saturation on room air was 88%. Chest x-ray was performed which showed a stable elevation of the right hemidiaphragm and no acute pulmonary findings. Patient will be placed in observation status for dehydration, generalized weakness, and cystitis. She will receive IV fluids and IV antibiotics and be seen by PT and OT. Past Medical History Past Medical History (Chronic Problems): Chronic Problems Diaphragmatic hernia (Chronic) Diabetes mellitus (Chronic) Coronary artery disease (Chronic) Obesity (Chronic) GERD (gastroesophageal reflux disease) (Chronic) Hx of appendectomy (Chronic) Benign essential HTN (Chronic) Depression (Chronic) HLD (hyperlipidemia) (Chronic) Overweight (BMI 25.0-29.9) (Chronic) CAD (coronary artery disease) (Chronic) Diabetes mellitus, type II (Chronic) Hyponatremia (Chronic) also has chronic mild hyponatremia Traumatic closed nondisplaced fracture of neck of left femur (Chronic) Status post closed reduction with internal fixation (Chronic) left femur 06/22, Dr Spears, [facility] Tinea unguium (Chronic) Dyskinesia, tardive (Chronic) Brain aneurysm (Chronic) Hypertension (Chronic) Diabetic neuropathy (Chronic) Allergies No Known Allergies Allergy (Verified 09/09/18 10:44) Home Medications: Ambulatory Orders Medication Instructions Recorded Fluoxetine [Prozac] 60 mg PO DAILY 03/17/17 Lorazepam [Ativan] 1 mg PO BID 03/17/17 Losartan Potassium 50 mg PO DAILY 03/17/17 Pantoprazole Sodium [Protonix] 20 mg PO DAILY 03/17/17 Pramipexole Di-HCl [Pramipexole 0.75 mg PO QHS 03/17/17 Dihydrochloride] Simvastatin 40 mg PO QHS 03/17/17 Minoxidil [Loniten] 2.5 mg PO BID 10/19/17 Melatonin 10 mg PO QHS tablet 11/13/17 Furosemide [Lasix] 20 mg PO DAILY 09/07/18 Phenazopyridine [Pyridium] 200 mg PO TID #9 tab 09/07/18 Smz/Tmp Ds [Bactrim Ds] 1 tab PO BID #14 tab 09/07/18 Spironolactone [Aldactone] 25 mg PO DAILY 09/07/18 Aspirin [Aspirin, Baby] 81 mg PO DAILY@0800 09/09/18 Clonidine HCl [Catapres] 0.05 mg PO BID 09/09/18 Nystatin Powder [Mycostatin Powder] 1 applic TOPICAL BID PRN 09/09/18 Surgical History: appendectomy, cholecystectomy, herniorrhaphy, tonsillectomy, - - 06/22/15 left hip CRIF Psychiatric History: Anxiety, Depression 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 Denies: Anorexia, Chills, Fever, Night Sweats, Weight Change Eyes: Denies: Cataracts, Conjunctivae Inflammation, Double vision, Drainage HEENT: Denies: Difficulty Swallowing, Dysphasia, Ear Pain, Eye Pain, Hearing Changes, Nasal bleeding, Nasal Congestion, Post Nasal Drip Cardiovascular: Denies: Chest Pain, Claudication, Chest Pressure, Chest Tightness, Edema, Heaviness, Palpitations, Paroxysmal Noc. Dyspnea, Syncope Respiratory: Denies: Cough, Hemoptysis, Pleuritic Pain, Shortness of Breath, Shortness of breath at rest, Shortness of breath upon exertion, Sputum pro duction, Wheezing Gastrointestinal: Reports: Nausea, - - Positive for dry heaves off and on over the last 48 hours, - - Positive history of large diaphragmatic hernia which was not surgically reduced. Denies: Abdominal Pain, Constipation, Diarrhea, Hematemesis, Hematochezia, Melena, Vomiting Genitourinary: Denies: Dysuria, Frequency, Hematuria, Hesitancy, Incontinence, Nocturia, Urgency Gynecological: Denies: Breast symptoms Musculoskeletal: Denies: Back Pain, Foot Pain, Hand Pain, Joint Pain, Joint stiffness, Joint swelling, Joint Tenderness, Leg Pain Skin: Denies: Dryness, Pruritis, Rash Neurological: Denies: Blurred vision, Double vision, Change in Speech, Slurred speech, Difficulty swallowing, Focal weakness, Incoordination, Numbness, Tingling, Tremor, Seizures Psychiatric: Denies: Anxiety, Depression, Homicidal Ideations, Suicidal Ideations Endocrine: Denies: Change in Body Habitus, Heat/ Cold Intolerance, Polydipsia, Polyuria Hematologic/ Lymphatic: Denies: Adenopathy, Anemia, Easy Bruising, Easy Bleeding, Petechiae, Purpura VTE Information - Inpt Only VTE Present on Admission: No VTE Mechan Device Prophylaxis: None VTE Pharm Prophylaxis ordered?: Yes - Physical Exam General: Alert, Oriented x3, Cooperative, No apparent distress, Well developed, - - She is a poor informant HEENT: Atraumatic, PERRLA, EOMI, Normocephalic Oral: Dry Mucosa Neck: Supple, No JVD, Negative Carotid Bruits, No Nuchal Rigidity, Trachea Midline, Thyroid Normal Size and Texture Lungs: Clear to auscultation, Normal air movement, No rhonchi, No wheeze, No rales Cardiovascular: Regular rate, Regular Rhythm, Normal S1, Normal S2, No murmurs, No Ectopic Activity, PMI Normal, No rub noted, No Gallop Abdomen: Bowel Sounds Present, Soft, Non Tender, Non-Distended, No hernias noted Extremities: No clubbing, Capillary Refill Less than 3 Seconds, Edema - Severe generalized edema is noted over the patient's lower extremities-nonpitting in nature Skin: No rashes, No breakdown Neurological: Cranial nerves II-XII grossly intact, Neuro grossly intact, Sensory exam intact to light touch and pain Psych/Mental Status: Appropriate, Flat Affect, - - Patient is alert and responds appropriately to most questions, she is a poor informant Vital Signs Temp Pulse Resp BP Pulse Ox 98.3 F 89 20 H 153/85 H 99 09/09/18 16:02 09/09/18 18:12 09/09/18 18:58 09/09/18 16:02 09/09/18 18:12 Oxygen Flow Rate (L/min) 2.5 Oxygen Delivery Method Nasal Cannula Weight: 74.843 kg Body Mass Index (BMI) 28.3 Finger Stick Blood Glucose 176 Laboratory Tests Past 24 Hrs 09/09/18 09/09/18 09/09/18 11:45 11:45 11:45 WBC 9.7 RBC 3.85 L Hgb 11.3 L Hct 33.5 L MCV 87.0 MCH 29.4 MCHC 33.7 RDW 12.9 RDW Differential 41.3 Plt Count 259 MPV 8.6 Immature Gran % (Auto) 0.600 Neut % (Auto) 89.0 H Lymph % (Auto) 7.1 L [place] % (Auto) 3.3 Eos % (Auto) 0.0 Baso % (Auto) 0.0 Absolute Neuts (auto) 8.6 H Absolute Lymphs (auto) 0.69 L Total Counted Not Reportable PT 14.0 INR 1.1 APTT 26.3 Sodium 131 L Potassium 3.9 Chloride 96 L Carbon Dioxide 28.0 Anion Gap 7 BUN 19 H Creatinine 1.16 H Estim Creat Clear Calc 33.96 Est GFR (MDRD) Af Amer 58 L Est GFR (MDRD) Non-Af 48 L BUN/Creatinine Ratio 16.4 Glucose 123 H Lactic Acid Calcium 9.3 Total Bilirubin 0.40 AST 23 ALT 24 Alkaline Phosphatase 113 Total Protein 7.4 Albumin 3.4 Globulin 4.0 Albumin/Globulin Ratio 0.8 L Urine Color Urine Clarity Urine pH Ur Specific [place] Urine Protein Urine Glucose (UA) Urine Ketones Urine Occult Blood Urine Nitrite Urine Bilirubin Urine Urobilinogen Ur Leukocyte Esterase Urine RBC Urine WBC Ur Squamous Epith Cells Amorphous Sediment Urine Bacteria Urine Mucus 09/09/18 09/09/18 11:45 12:00 WBC RBC Hgb Hct MCV MCH MCHC RDW RDW Differential Plt Count MPV Immature Gran % (Auto) Neut % (Auto) Lymph % (Auto) [place] % (Auto) Eos % (Auto) Baso % (Auto) Absolute Neuts (auto) Absolute Lymphs (auto) Total Counted PT INR APTT Sodium Potassium Chloride Carbon Dioxide Anion Gap BUN Creatinine Estim Creat Clear Calc Est GFR (MDRD) Af Amer Est GFR (MDRD) Non-Af BUN/Creatinine Ratio Glucose Lactic Acid 0.9 Calcium Total Bilirubin AST ALT Alkaline Phosphatase Total Protein Albumin Globulin Albumin/Globulin Ratio Urine Color SEE COMMENT BELOW Urine Clarity Sl. Cloudy Urine pH 5.0 Ur Specific [place] 1.015 Urine Protein 30 H Urine Glucose (UA) Normal Urine Ketones 5 H Urine Occult Blood 25 H Urine Nitrite Positive H Urine Bilirubin 3 H Urine Urobilinogen 4 H Ur Leukocyte Esterase 25 H Urine RBC 0-5 SEEN Urine WBC 0-5 SEEN Ur Squamous Epith Cells 0-5 SEEN Amorphous Sediment 1+ Urine Bacteria 2+ Urine Mucus 0 SEEN Assessment/Plan All Active Problems Confusion (Acute) Influenza (Resolved) Takotsubo syndrome (Resolved) Gastroenteritis (Resolved) Hypoxia (Acute) Generalized weakness (Acute) Abdominal pain (Resolved) Diarrhea (Resolved) #1 dehydration-secondary to poor oral intake over the last several days, etiolo gy of the patient's nausea and dry heaves are unknown at this time, patient will be placed in observation status on MedSurg 3, she will be given IV fluids, her oral diuretics will be held. Labs will be monitored #2 generalized weakness-probably secondary to dehydration and cystitis, she will need to be seen by PT and OT, patient lives alone, according to the patient's son, patient is usually independent and does her own driving and takes care of her own bills and her home. #3 cystitis-from Citrobacter, patient was given IV Rocephin in the emergency room, I will maintain her on IV Ancef for now, patient is afebrile, I do not believe she is septic, and her white blood cell count is normal. #4 hypertension-patient will remain on her present medications except for her diuretics #5 hypoxia-etiology unclear, patient has a large diaphragmatic hernia and this may be causing some respiratory embarrassment. O2 sat will be monitored #6 hyperlipidemia #7 depression-patient is unable to tell his examiner why she is taking Prozac #8 insomnia-patient asked for something for sleep, she does take Ativan for anxiety, she had been on Ambien at one time but her son does not want her on this medication and is worried about her taking this medication, I decided to place her on Vistaril at bedtime to see if this would help her sleep. Patient takes excessive amounts of melatonin at night for sleep which does not help-she states that she sometimes takes 20 mg at a time. #9 past history of cardiomyopathy-it appears patient had a diagnosis of Takotsubo's cardiomyopathy at one time, her last echo showed a normal EF and this was performed in September 2017. #10 large diaphragmatic hernia radiating into the right anterior thoracic cavity-again patient has been evaluated concerning this before and has declined surgery due to the risk. #11 chronic lymphedema-it is possible that the patient's chronic leg edema is secondary to her use of minoxidil, we will use Preston wraps on the patient, she has [id number] compression stockings at home which she wears Code Visit OBSV E&M: [id number] Initial observation care L3
[2018-09-09] MEDS: Heparin Injection (Vial) 5,000 UNIT/ML VIAL 5000 UNIT SC (22:35)
[2018-09-09] MEDS: Pramipexole Di-HCl 0.25 MG Tablet 0.75 MG PO (22:35)
[2018-09-09] MEDS: Atorvastatin Calcium 20 MG Tablet PO (22:35)
[2018-09-09] MEDS: Minoxidil 2.5 MG Tablet PO (22:35)
[2018-09-09] MEDS: cloNIDine HCl 0.1 MG Tablet 0.05 MG PO (22:35)
[2018-09-09] MEDS: LORazepam 1 MG Tablet PO (22:36)
[2018-09-09] MEDS: hydrOXYzine PAM 25 MG Capsule 50 MG PO (22:36)
[2018-09-10] VITALS (7 sets, daily range): BP systolic 104–152; BP diastolic 53–82; PULSE 85–93; RESP 18–20; TEMP 36.8–37.4; O2SAT 94–100
[2018-09-10] MEDS: Ondansetron 4 MG/2 ML Vial IV ×2 (04:49→10:59)
[2018-09-10 06:10] LABS: Absolute Lymphocyte Count 1.03 X10^3/ul (0.83-4.51); Absolute Neutrophil Count 7.1 X10^3/uL (2.0-7.7); Basophil# 0.01 X10^3/uL; Basophil% 0.1 % (0-1); Eosinophil# 0.01 X10^3/uL; Eosinophils% 0.1 % (0-5); Hematocrit 32.3 % (37-47); Hemoglobin 10.7 g/dl (12.0-15.0); Lymphocyte # 1.03 X10^3/ul (4.0); Lymphocyte % 11.9 % (19-41); Mean Corp Hgb Conc 33.1 g/gl (32-36); Mean Corpuscular Volume 87.5 fL (81-99); Mean Platelet Vol. 8.5 fl (6.2-12.0); Monocyte# 0.49 X10^3/uL; Monocyte% 5.6 % (0-10); Neutrophil # 7.12 X10^3/uL (2.7-7.7); Neutrophil % 82.1 % (47-70); Platelet Count 260 K/mm3 (150-450); RBC Distribution Width CV 12.9 % (11.6-14.6); RBC Distribution Width SD 41.8 fl (35.1-43.9); Red Blood Count 3.69 M/mm3 (4.2-5.4); White Blood Count 8.7 K/mm3 (4.4-11.0)
[2018-09-10 06:12] LABS: POSITIVE COUNT NO; POSITIVE DIFFERENTIAL NO; POSITIVE MORPHOLOGY NO
[2018-09-10 06:27] LABS: Anion Gap 8 (5-15); BUN 15 mg/dL (7-18); BUN/Creat Ratio 16.3 RATIO (10-20); Calcium,Total 8.7 mg/dL (8.5-10.1); Chloride 101 mmol/L (98-107); Creatinine, Serum 0.92 mg/dL (0.55-1.02); EST Glomerular Filtration Rate 62 mL/min (>60); Est Glom Filt Rate - Afr Amer 75 mL/min (>60); Estimated Creatinine Clearance 42.82 ml/min; Glucose 106 mg/dL (74-106); Potassium 4.1 mmol/L (3.5-5.1); Sodium Level 137 mmol/L (136-145)
[2018-09-10] MEDS: Heparin Injection (Vial) 5,000 UNIT/ML VIAL 5000 UNIT SC ×3 (06:50→22:45)
[2018-09-10] MEDS: 0.9% Normal Saline 1,000 ML 125 ML IV ×2 (07:24→15:29)
[2018-09-10] MEDS: Aspirin 81 MG TAB.CHEW PO (07:25)
[2018-09-10] MEDS: LORazepam 1 MG Tablet PO ×2 (08:45→22:45)
[2018-09-10] MEDS: Losartan Potassium 50 MG Tablet PO (08:45)
[2018-09-10] MEDS: Pantoprazole Sodium 20 MG Tablet PO (08:47)
[2018-09-10] MEDS: cloNIDine HCl 0.1 MG Tablet 0.05 MG PO ×2 (08:47→22:45)
[2018-09-10] MEDS: Minoxidil 2.5 MG Tablet PO ×2 (08:48→22:45)
[2018-09-10] MEDS: Cefazolin 1 GM/50 ML BAG IV ×2 (08:53→17:26)
[2018-09-10] MEDS: FLUoxetine 20 MG Capsule 60 MG PO (08:54)
--- NOTE | 2018-09-10 09:12 | PCM.PN.HOSP ---
Subjective: Patient is a 77-year-old lady recently diagnosed with UTI seen in the emergency department discharged home on Bactrim and [place] presented with worsening confusion and significant nausea Objective: GENERAL: Appears ill looking HEENT: Atraumatic; dry oral mucosa EYES; Anicteric, Normal Conjunctiva NECK; supple, normal thyroid, RESPIRATORY: Diminished to auscultation bilaterally, CARDIOVASCULAR: Regular S1 S2, GI: soft, non-tender, normoactive bowel sounds, : No Renal angle tenderness; EXTREMITIES: No edema, no clubbing, no cyanosis. MUSCULOSKELETAL: No Joint Tenderness; NEURO: Awake; no lateralizing signs. SKIN: No Rash PSYCH; Flat affect Vitals/I&O's: Vital Signs Temp Pulse Resp BP Pulse Ox 99.0 F 90 20 H 130/63 H 94 09/10/18 08:27 09/10/18 08:32 09/10/18 08:27 09/10/18 08:27 09/10/18 08:27 Oxygen Flow Rate (L/min) 2 Oxygen Delivery Method Nasal Cannula Weight: 74.843 kg Body Mass Index (BMI) 28.3 Finger Stick Blood Glucose 176 Intake and Output for Last 24 Hours 09/08/18 09/09/18 09/10/18 23:59 23:59 23:59 Intake Total 1200 / 1200 1300 / 1300 Output Total 600 / 600 300 / 300 Balance 600 / 600 1000 / 1000 Laboratory Results 09/09/18 11:45: WBC 9.7, RBC 3.85 L, Hgb 11.3 L, Hct 33.5 L, MCV 87.0, MCH 29.4, MCHC 33.7, RDW 12.9, RDW Differential 41.3, Plt Count 259, MPV 8.6, Immature Gran % (Auto) 0.600, Neut % (Auto) 89.0 H, Lymph % (Auto) 7.1 L, [place] % (Auto) 3.3, Eos % (Auto) 0.0, Baso % (Auto) 0.0, Absolute Neuts (auto) 8.6 H, Absolute Lymphs (auto) 0.69 L, Total Counted Not Reportable 09/09/18 11:45: PT 14.0, INR 1.1, APTT 26.3 09/09/18 11:45: Sodium 131 L, Potassium 3.9, Chloride 96 L, Carbon Dioxide 28.0, Anion Gap 7, BUN 19 H, Creatinine 1.16 H, Estim Creat Clear Calc 33.96, Est GFR (MDRD) Af Amer 58 L, Est GFR (MDRD) Non-Af 48 L, BUN/Creatinine Ratio 16.4, Glucose 123 H, Calcium 9.3, Total Bilirubin 0.40, AST 23, ALT 24, Alkaline Phosphatase 113, Total Protein 7.4, Albumin 3.4, Globulin 4.0, Albumin/Globulin Ratio 0.8 L 09/09/18 11:45: Lactic Acid 0.9 09/09/18 12:00: Urine Color SEE COMMENT BELOW, Urine Clarity Sl. Cloudy, Urine pH 5.0, Ur Specific [place] 1.015, Urine Protein 30 H, Urine Glucose (UA) Normal, Urine Ketones 5 H, Urine Occult Blood 25 H, Urine Nitrite Positive H, Urine Bilirubin 3 H, Urine Urobilinogen 4 H, Ur Leukocyte Esterase 25 H, Urine RBC 0-5 SEEN, Urine WBC 0-5 SEEN, Ur Squamous Epith Cells 0-5 SEEN, Amorphous Sediment 1+, Urine Bacteria 2+, Urine Mucus 0 SEEN 09/10/18 05:25: WBC 8.7, RBC 3.69 L, Hgb 10.7 L, Hct 32.3 L, MCV 87.5, MCH 29.0, MCHC 33.1, RDW 12.9, RDW Differential 41.8, Plt Count 260, MPV 8.5, Immature Gran % (Auto) 0.200, Neut % (Auto) 82.1 H, Lymph % (Auto) 11.9 L, [place] % (Auto) 5.6, Eos % (Auto) 0.1, Baso % (Auto) 0.1, Absolute Neuts (auto) 7.1, Absolute Lymphs (auto) 1.03, Total Counted Not Reportable 09/10/18 05:25: Sodium 137, Potassium 4.1, Chloride 101, Carbon Dioxide 28.0, Anion Gap 8, BUN 15, Creatinine 0.92, Estim Creat Clear Calc 42.82, Est GFR (MDRD) Af Amer 75, Est GFR (MDRD) Non-Af 62, BUN/Creatinine Ratio 16.3, Glucose 106, Calcium 8.7 Current Medications Acetaminophen (Tylenol) 650 mg PO Q6H PRN PRN PRN Reason: Mild Pain (1-3)/Temp > 100.7 F Aspirin (Aspirin, Baby) 81 mg PO DAILY@0800 [facility] Last Admin: 09/10/18 07:25 Dose: 81 mg Atorvastatin Calcium (Lipitor) 20 mg PO QHS [facility] Last Admin: 09/09/18 22:35 Dose: 20 mg Clonidine (Catapres) 0.05 mg PO BID [facility] Last Admin: 09/10/18 08:47 Dose: 0.05 mg Fluoxetine HCl (Prozac) 60 mg PO DAILY [facility] Last Admin: 09/10/18 08:54 Dose: 60 mg Heparin Sodium (Porcine) (Heparin Na) 5,000 unit SC Q8 [facility] Last Admin: 09/10/18 06:50 Dose: 5,000 unit Hydroxyzine Pamoate (Vistaril Pamoate Capsule) 50 mg PO QHS PRN PRN PRN Reason: SLEEP Last Admin: 09/09/18 22:36 Dose: 50 mg Sodium Chloride () 1,000 mls @ 125 mls/hr IV .Q8H [facility] Last Admin: 09/10/18 07:24 Dose: 125 mls/hr Cefazolin Sodium () 1 gm in 50 mls @ 100 mls/hr IV Q8H [facility] Last Admin: 09/10/18 08:53 Dose: 100 mls/hr Sodium Chloride () 250 mls @ 15 mls/hr IV .[id number] PRN PRN Reason: SALINE FLUSH Influenza Virus Vaccine Quadrival (Fluarix/Fluzone) 0.5 ml IM .ONCE ONE Stop: 09/10/18 10:01 Lorazepam (Ativan) 1 mg PO BID [facility] Last Admin: 09/10/18 08:45 Dose: 1 mg Losartan Potassium (Cozaar) 50 mg PO DAILY [facility] Last Admin: 09/10/18 08:45 Dose: 50 mg Minoxidil (Loniten) 2.5 mg PO BID [facility] Last Admin: 09/10/18 08:48 Dose: 2.5 mg Ondansetron HCl (Zofran) 4 mg IV Q6H PRN PRN PRN Reason: NAUSEA Last Admin: 09/10/18 04:49 Dose: 4 mg Pantoprazole Sodium (Protonix) 20 mg PO DAILY [facility] Last Admin: 09/10/18 08:47 Dose: 20 mg Pramipexole Dihydrochloride (Mirapex) 0.75 mg PO QHS [facility] Last Admin: 09/09/18 22:35 Dose: 0.75 mg Sodium Chloride () 5 - 15 ml IV UD PRN PRN Reason: SALINE FLUSH Medical Necessity - Tobacco Use Smoking Status: Never smoker Tobacco Use: Non-smoker Assessment/Plan All Active Problems Confusion (Acute) Influenza (Resolved) Takotsubo syndrome (Resolved) Gastroenteritis (Resolved) Hypoxia (Acute) Generalized weakness (Acute) Abdominal pain (Resolved) Diarrhea (Resolved) Patient is a 77-year-old lady recently diagnosed with UTI seen in the emergency department discharged home on Bactrim and [place] presented with worsening confusion and significant nausea 1. Acute encephalopathy secondary to infectious encephalopathy from UTI admitted to regular nursing floor started on cefazolin cultures sent 2. Acute cystitis with Citrobacter patient started on cefazolin based on recent cultures obtained on 09/07/2018 3. Severe dehydration secondary to decreased oral intake admitted to regular nursing floor where patient is being management IV fluids with monitoring of electrolyte 4. Hypovolemic hyponatremia on IV fluids with monitoring of electrolyte 5. Benign essential hypertension blood pressure controlled continue with home medications 6. Dyslipidemia-patient is on statin therapy, continued at home dose 7. Chronic diastolic congestive heart failure echo obtained on 10/10/2017 demonstrated EF of 75% with RVSP of 48 8. Chronic lower extremity lymphedema secondary to patient chronic diastolic heart failure in addition to her pulmonary hypertension 9. large diaphragmatic hernia radiating into the right anterior thoracic cavity-patient has been evaluated concerning this before and has declined surgery due to the risk. 10. DVT prophylaxis SC heparin Advance planning; did discuss with the patient and family regarding her advanced directives as well as CODE STATUS. Did explain the various modalities involved ( FULL CODE, DNR CCA, DNR CCA with no intubation, and DNR CC ) patient wishes to remain full code. Order was placed. Time spent on discussion 18 minutes. Active Medications Acetaminophen (Tylenol) 650 mg PO Q6H PRN PRN PRN Reason: Mild Pain (1-3)/Temp > 100.7 F Aspirin (Aspirin, Baby) 81 mg PO DAILY@0800 [facility] Last Admin: 09/10/18 07:25 Dose: 81 mg Atorvastatin Calcium (Lipitor) 20 mg PO QHS [facility] Last Admin: 09/09/18 22:35 Dose: 20 mg Clonidine (Catapres) 0.05 mg PO BID [facility] Last Admin: 09/10/18 08:47 Dose: 0.05 mg Fluoxetine HCl (Prozac) 60 mg PO DAILY [facility] Last Admin: 09/10/18 08:54 Dose: 60 mg Heparin Sodium (Porcine) (Heparin Na) 5,000 unit SC Q8 [facility] Last Admin: 09/10/18 06:50 Dose: 5,000 unit Hydroxyzine Pamoate (Vistaril Pamoate Capsule) 50 mg PO QHS PRN PRN PRN Reason: SLEEP Last Admin: 09/09/18 22:36 Dose: 50 mg Sodium Chloride () 1,000 mls @ 125 mls/hr IV .Q8H [facility] Last Admin: 09/10/18 07:24 Dose: 125 mls/hr Cefazolin Sodium () 1 gm in 50 mls @ 100 mls/hr IV Q8H [facility] Last Admin: 09/10/18 08:53 Dose: 100 mls/hr Sodium Chloride () 250 mls @ 15 mls/hr IV .[id number] PRN PRN Reason: SALINE FLUSH Influenza Virus Vaccine Quadrival (Fluarix/Fluzone) 0.5 ml IM .ONCE ONE Stop: 09/10/18 10:01 Lorazepam (Ativan) 1 mg PO BID [facility] Last Admin: 09/10/18 08:45 Dose: 1 mg Losartan Potassium (Cozaar) 50 mg PO DAILY [facility] Last Admin: 09/10/18 08:45 Dose: 50 mg Minoxidil (Loniten) 2.5 mg PO BID [facility] Last Admin: 09/10/18 08:48 Dose: 2.5 mg Ondansetron HCl (Zofran) 4 mg IV Q6H PRN PRN PRN Reason: NAUSEA Last Admin: 09/10/18 04:49 Dose: 4 mg Pantoprazole Sodium (Protonix) 20 mg PO DAILY [facility] Last Admin: 09/10/18 08:47 Dose: 20 mg Pramipexole Dihydrochloride (Mirapex) 0.75 mg PO QHS [facility] Last Admin: 09/09/18 22:35 Dose: 0.75 mg Sodium Chloride () 5 - 15 ml IV UD PRN PRN Reason: SALINE FLUSH Clinical Impression(s) from Imaging Studies Chest X-Ray 09/09/18 11:31 IMPRESSION: Stable elevation of the right hemidiaphragm. No acute pulmonary findings. Electronically Signed: Mendoza Ramirez MD at 11:45 EST Tel , Service support , Code Visit Inpatient E&M: 13603 Subs Hosp L3 Procedures: 93121 Advncd Care Plan 30 Min
--- NOTE | 2018-09-10 09:15 | PN_ITS ---
Subjective: Patient is a 77-year-old lady recently diagnosed with UTI seen in the emergency department discharged home on Bactrim and [place] presented with worsening confusion and significant nausea Objective: GENERAL: Appears ill looking HEENT: Atraumatic; dry oral mucosa EYES; Anicteric, Normal Conjunctiva NECK; supple, normal thyroid, RESPIRATORY: Diminished to auscultation bilaterally, CARDIOVASCULAR: Regular S1 S2, GI: soft, non-tender, normoactive bowel sounds, : No Renal angle tenderness; EXTREMITIES: No edema, no clubbing, no cyanosis. MUSCULOSKELETAL: No Joint Tenderness; NEURO: Awake; no lateralizing signs. SKIN: No Rash PSYCH; Flat affect Vitals/I&O's: Vital Signs Temp Pulse Resp BP Pulse Ox 99.0 F 90 20 H 130/63 H 94 09/10/18 08:27 09/10/18 08:32 09/10/18 08:27 09/10/18 08:27 09/10/18 08:27 Oxygen Flow Rate (L/min) 2 Oxygen Delivery Method Nasal Cannula Weight: 74.843 kg Body Mass Index (BMI) 28.3 Finger Stick Blood Glucose 176 Intake and Output for Last 24 Hours 09/08/18 09/09/18 09/10/18 23:59 23:59 23:59 Intake Total 1200 / 1200 1300 / 1300 Output Total 600 / 600 300 / 300 Balance 600 / 600 1000 / 1000 Laboratory Results 09/09/18 11:45: WBC 9.7, RBC 3.85 L, Hgb 11.3 L, Hct 33.5 L, MCV 87.0, MCH 29.4, MCHC 33.7, RDW 12.9, RDW Differential 41.3, Plt Count 259, MPV 8.6, Immature Gran % (Auto) 0.600, Neut % (Auto) 89.0 H, Lymph % (Auto) 7.1 L, [place] % (Auto) 3.3, Eos % (Auto) 0.0, Baso % (Auto) 0.0, Absolute Neuts (auto) 8.6 H, Absolute Lymphs (auto) 0.69 L, Total Counted Not Reportable 09/09/18 11:45: PT 14.0, INR 1.1, APTT 26.3 09/09/18 11:45: Sodium 131 L, Potassium 3.9, Chloride 96 L, Carbon Dioxide 28.0, Anion Gap 7, BUN 19 H, Creatinine 1.16 H, Estim Creat Clear Calc 33.96, Est GFR (MDRD) Af Amer 58 L, Est GFR (MDRD) Non-Af 48 L, BUN/Creatinine Ratio 16.4, Gluc ose 123 H, Calcium 9.3, Total Bilirubin 0.40, AST 23, ALT 24, Alkaline Phosphatase 113, Total Protein 7.4, Albumin 3.4, Globulin 4.0, Albumin/Globulin Ratio 0.8 L 09/09/18 11:45: Lactic Acid 0.9 09/09/18 12:00: Urine Color SEE COMMENT BELOW, Urine Clarity Sl. Cloudy, Urine pH 5.0, Ur Specific [place] 1.015, Urine Protein 30 H, Urine Glucose (UA) Normal, Urine Ketones 5 H, Urine Occult Blood 25 H, Urine Nitrite Positive H, Urine Bilirubin 3 H, Urine Urobilinogen 4 H, Ur Leukocyte Esterase 25 H, Urine RBC 0-5 SEEN, Urine WBC 0-5 SEEN, Ur Squamous Epith Cells 0-5 SEEN, Amorphous Sediment 1+, Urine Bacteria 2+, Urine Mucus 0 SEEN 09/10/18 05:25: WBC 8.7, RBC 3.69 L, Hgb 10.7 L, Hct 32.3 L, MCV 87.5, MCH 29.0, MCHC 33.1, RDW 12.9, RDW Differential 41.8, Plt Count 260, MPV 8.5, Immature Gran % (Auto) 0.200, Neut % (Auto) 82.1 H, Lymph % (Auto) 11.9 L, [place] % (Auto) 5.6, Eos % (Auto) 0.1, Baso % (Auto) 0.1, Absolute Neuts (auto) 7.1, Absolute Lymphs (auto) 1.03, Total Counted Not Reportable 09/10/18 05:25: Sodium 137, Potassium 4.1, Chloride 101, Carbon Dioxide 28.0, Anion Gap 8, BUN 15, Creatinine 0.92, Estim Creat Clear Calc 42.82, Est GFR (MDRD) Af Amer 75, Est GFR (MDRD) Non-Af 62, BUN/Creatinine Ratio 16.3, Glucose 106, Calcium 8.7 Current Medications Acetaminophen (Tylenol) 650 mg PO Q6H PRN PRN PRN Reason: Mild Pain (1-3)/Temp > 100.7 F Aspirin (Aspirin, Baby) 81 mg PO DAILY@0800 [facility] Last Admin: 09/10/18 07:25 Dose: 81 mg Atorvastatin Calcium (Lipitor) 20 mg PO QHS [facility] Last Admin: 09/09/18 22:35 Dose: 20 mg Clonidine (Catapres) 0.05 mg PO BID [facility] Last Admin: 09/10/18 08:47 Dose: 0.05 mg Fluoxetine HCl (Prozac) 60 mg PO DAILY [facility] Last Admin: 09/10/18 08:54 Dose: 60 mg Heparin Sodium (Porcine) (Heparin Na) 5,000 unit SC Q8 [facility] Last Admin: 09/10/18 06:50 Dose: 5,000 unit Hydroxyzine Pamoate (Vistaril Pamoate Capsule) 50 mg PO QHS PRN PRN PRN Reason: SLEEP Last Admin: 09/09/18 22:36 Dose: 50 mg Sodium Chloride () 1,000 mls @ 125 mls/hr IV .Q8H [facility] Last Admin: 09/10/18 07:24 Dose: 125 mls/hr Cefazolin Sodium () 1 gm in 50 mls @ 100 mls/hr IV Q8H [facility] Last Admin: 09/10/18 08:53 Dose: 100 mls/hr Sodium Chloride () 250 mls @ 15 mls/hr IV .[id number] PRN PRN Reason: SALINE FLUSH Influenza Virus Vaccine Quadrival (Fluarix/Fluzone) 0.5 ml IM .ONCE ONE Stop: 09/10/18 10:01 Lorazepam (Ativan) 1 mg PO BID [facility] Last Admin: 09/10/18 08:45 Dose: 1 mg Losartan Potassium (Cozaar) 50 mg PO DAILY [facility] Last Admin: 09/10/18 08:45 Dose: 50 mg Minoxidil (Loniten) 2.5 mg PO BID [facility] Last Admin: 09/10/18 08:48 Dose: 2.5 mg Ondansetron HCl (Zofran) 4 mg IV Q6H PRN PRN PRN Reason: NAUSEA Last Admin: 09/10/18 04:49 Dose: 4 mg Pantoprazole Sodium (Protonix) 20 mg PO DAILY [facility] Last Admin: 09/10/18 08:47 Dose: 20 mg Pramipexole Dihydrochloride (Mirapex) 0.75 mg PO QHS [facility] Last Admin: 09/09/18 22:35 Dose: 0.75 mg Sodium Chloride () 5 - 15 ml IV UD PRN PRN Reason: SALINE FLUSH Medical Necessity - Tobacco Use Smoking Status: Never smoker Tobacco Use: Non-smoker Assessment/Plan All Active Problems Confusion (Acute) Influenza (Resolved) Takotsubo syndrome (Resolved) Gastroenteritis (Resolved) Hypoxia (Acute) Generalized weakness (Acute) Abdominal pain (Resolved) Diarrhea (Resolved) Patient is a 77-year-old lady recently diagnosed with UTI seen in the emergency department discharged home on Bactrim and [place] presented with worsening confusion and significant nausea 1. Acute encephalopathy secondary to infectious encephalopathy from UTI admitted to regular nursing floor started on cefazolin cultures sent 2. Acute cystitis with Citrobacter patient started on cefazolin based on recent cultures obtained on 09/07/2018 3. Severe dehydration secondary to decreased oral intake admitted to regular nursing floor where patient is being management IV fluids with monitoring of electrolyte 4. Hypovolemic hyponatremia on IV fluids with monitoring of electrolyte 5. Benign essential hypertension blood pressure controlled continue with home medications 6. Dyslipidemia-patient is on statin therapy, continued at home dose 7. Chronic diastolic congestive heart failure echo obtained on 10/10/2017 demonstrated EF of 75% with RVSP of 48 8. Chronic lower extremity lymphedema secondary to patient chronic diastolic heart failure in addition to her pulmonary hypertension 9. large diaphragmatic hernia radiating into the right anterior thoracic c avity-patient has been evaluated concerning this before and has declined surgery due to the risk. 10. DVT prophylaxis SC heparin Advance planning; did discuss with the patient and family regarding her advanced directives as well as CODE STATUS. Did explain the various modalities involved ( FULL CODE, DNR CCA, DNR CCA with no intubation, and DNR CC ) patient wishes to remain full code. Order was placed. Time spent on discussion 18 minutes. Active Medications Acetaminophen (Tylenol) 650 mg PO Q6H PRN PRN PRN Reason: Mild Pain (1-3)/Temp > 100.7 F Aspirin (Aspirin, Baby) 81 mg PO DAILY@0800 [facility] Last Admin: 09/10/18 07:25 Dose: 81 mg Atorvastatin Calcium (Lipitor) 20 mg PO QHS [facility] Last Admin: 09/09/18 22:35 Dose: 20 mg Clonidine (Catapres) 0.05 mg PO BID [facility] Last Admin: 09/10/18 08:47 Dose: 0.05 mg Fluoxetine HCl (Prozac) 60 mg PO DAILY [facility] Last Admin: 09/10/18 08:54 Dose: 60 mg Heparin Sodium (Porcine) (Heparin Na) 5,000 unit SC Q8 [facility] Last Admin: 09/10/18 06:50 Dose: 5,000 unit Hydroxyzine Pamoate (Vistaril Pamoate Capsule) 50 mg PO QHS PRN PRN PRN Reason: SLEEP Last Admin: 09/09/18 22:36 Dose: 50 mg Sodium Chloride () 1,000 mls @ 125 mls/hr IV .Q8H [facility] Last Admin: 09/10/18 07:24 Dose: 125 mls/hr Cefazolin Sodium () 1 gm in 50 mls @ 100 mls/hr IV Q8H [facility] Last Admin: 09/10/18 08:53 Dose: 100 mls/hr Sodium Chloride () 250 mls @ 15 mls/hr IV .[id number] PRN PRN Reason: SALINE FLUSH Influenza Virus Vaccine Quadrival (Fluarix/Fluzone) 0.5 ml IM .ONCE ONE Stop: 09/10/18 10:01 Lorazepam (Ativan) 1 mg PO BID [facility] Last Admin: 09/10/18 08:45 Dose: 1 mg Losartan Potassium (Cozaar) 50 mg PO DAILY [facility] Last Admin: 09/10/18 08:45 Dose: 50 mg Minoxidil (Loniten) 2.5 mg PO BID [facility] Last Admin: 09/10/18 08:48 Dose: 2.5 mg Ondansetron HCl (Zofran) 4 mg IV Q6H PRN PRN PRN Reason: NAUSEA Last Admin: 09/10/18 04:49 Dose: 4 mg Pantoprazole Sodium (Protonix) 20 mg PO DAILY [facility] Last Admin: 09/10/18 08:47 Dose: 20 mg Pramipexole Dihydrochloride (Mirapex) 0.75 mg PO QHS [facility] Last Admin: 09/09/18 22:35 Dose: 0.75 mg Sodium Chloride () 5 - 15 ml IV UD PRN PRN Reason: SALINE FLUSH Clinical Impression(s) from Imaging Studies Chest X-Ray 09/09/18 11:31 IMPRESSION: Stable elevation of the right hemidiaphragm. No acute pulmonary findings. Electronically Signed: Mendoza Ramirez MD at 11:45 EST Tel , Service support , Code Visit Inpatient E&M: 94388 Subs Hosp L3 Procedures: 13031 Advncd Care Plan 30 Min
--- NOTE | 2018-09-10 09:39 | CASEMGMT ---
Social Work Note HCPOA placed on pt's chart. Per heel buffer questions, pt has completed LW but is unable to bring in copy. Mary Harmon [employer] SALES REPRESENTATIVE, PILLOWCASE CLEANER
--- NOTE | 2018-09-10 10:20 | CASEMGMT ---
PRACHI BERNABE Face to Face with patient for initial transition planning/care coordination assessment. RN CM introduced self and role at [facility]. Patient lying in bed, alert and oriented. Patient willing to participate in assessment and is able to answer all questions appropriately. Care providers, pharmacy, and demographics verified. Patient wishes to discharge home with C with [facility] or to SNF if necessary. Patient states she has no further needs or concerns at this time. EMELIA Harmon updated regarding potential placement for SNF. CM to follow for discharge planning needs that may arise. PCP: Nicolas Specialists: No Preferred Pharmacy:[facility] Insurance: [employer] Prescription Benefit: Yes Living Will/HPOA: Yes, daughter Maria E Mederos HPOA LNOK: Daughter and Son Living Arrangements: Patient lives alone in 1 story home. Independent with self care. Has cleaning person every other week. Transportation: Son/ Self DME/HHC: Patient has shower chair, raised toilet seat, cane, walker. Patient would like [facility] for home. Patient has previously been to TCU in past and would go to SNF in necessary. Disposition Plan: TBD. Home with C vs SNF Mary NUGENT, RN, CM
[2018-09-10] MEDS: 0.9% NaCl Peripheral Flush Adult/Peds IV (11:00)
[2018-09-10] MEDS: Bisacodyl 5 MG Tablet 10 MG PO (22:45)
[2018-09-10] MEDS: Atorvastatin Calcium 20 MG Tablet PO (22:45)
[2018-09-10] MEDS: Pramipexole Di-HCl 0.25 MG Tablet 0.75 MG PO (22:45)
[2018-09-10] MEDS: hydrOXYzine PAM 25 MG Capsule 50 MG PO (22:45)
[2018-09-11] VITALS (9 sets, daily range): BP systolic 120–147; BP diastolic 62–71; PULSE 55–84; RESP 18–20; TEMP 36.7–37.1; O2SAT 88–96
[2018-09-11] MEDS: 0.9% Normal Saline 1,000 ML 125 ML IV (01:06)
[2018-09-11] MEDS: Cefazolin 1 GM/50 ML BAG IV ×3 (01:13→17:36)
[2018-09-11 05:40] LABS: Hematocrit 31.6 % (37-47); Hemoglobin 10.4 g/dl (12.0-15.0); Mean Corp Hgb Conc 32.9 g/gl (32-36); Mean Corpuscular Volume 91.1 fL (81-99); Mean Platelet Vol. 8.5 fl (6.2-12.0); Platelet Count 276 K/mm3 (150-450); RBC Distribution Width CV 12.8 % (11.6-14.6); RBC Distribution Width SD 41.6 fl (35.1-43.9); Red Blood Count 3.47 M/mm3 (4.2-5.4); White Blood Count 8.7 K/mm3 (4.4-11.0)
[2018-09-11 05:45] LABS: Anion Gap 5 (5-15); BUN 13 mg/dL (7-18); Calcium,Total 8.6 mg/dL (8.5-10.1); Chloride 104 mmol/L (98-107); Creatinine, Serum 0.87 mg/dL (0.55-1.02); EST Glomerular Filtration Rate 67 mL/min (>60); Est Glom Filt Rate - Afr Amer 81 mL/min (>60); Estimated Creatinine Clearance 45.28 ml/min; Glucose 106 mg/dL (74-106); Magnesium 1.8 mg/dL (1.6-2.6); Potassium 4.3 mmol/L (3.5-5.1); Sodium Level 139 mmol/L (136-145)
[2018-09-11] MEDS: Heparin Injection (Vial) 5,000 UNIT/ML VIAL 5000 UNIT SC ×3 (05:49→20:57)
[2018-09-11 05:59] LABS: Scan Indicated on CBC? Y/N NO
[2018-09-11] MEDS: Aspirin 81 MG TAB.CHEW PO (07:24)
[2018-09-11] MEDS: cloNIDine HCl 0.1 MG Tablet 0.05 MG PO ×2 (09:04→20:57)
[2018-09-11] MEDS: LORazepam 1 MG Tablet PO ×2 (09:04→21:01)
[2018-09-11] MEDS: FLUoxetine 20 MG Capsule 60 MG PO (09:06)
[2018-09-11] MEDS: Pantoprazole Sodium 20 MG Tablet PO (09:06)
[2018-09-11] MEDS: Minoxidil 2.5 MG Tablet PO ×2 (09:07→20:59)
[2018-09-11] MEDS: Losartan Potassium 50 MG Tablet PO (09:07)
[2018-09-11] MEDS: 0.9% NaCl Peripheral Flush Adult/Peds IV ×2 (10:00→17:37)
[2018-09-11] MEDS: Senna Tablet 1 TABLET PO (13:01)
--- NOTE | 2018-09-11 13:58 | PN_ITS ---
Subjective: Patient seen still appears weak. Patient to undergo physical therapy later this afternoon to determine her disposition home with home health versus [facility] facility Objective: GENERAL: Appears ill looking HEENT: Atraumatic; dry oral mucosa EYES; Anicteric, Normal Conjunctiva NECK; supple, normal thyroid, RESPIRATORY: Diminished to auscultation bilaterally, CARDIOVASCULAR: Regular S1 S2, GI: soft, non-tender, normoactive bowel sounds, : No Renal angle tenderness; EXTREMITIES: No edema, no clubbing, no cyanosis. MUSCULOSKELETAL: No Joint Tenderness; NEURO: Awake; no lateralizing signs. SKIN: No Rash PSYCH; Flat affect Vitals/I&O's: Vital Signs Temp Pulse Resp BP Pulse Ox 98.7 F 81 18 135/62 H 96 09/11/18 13:03 09/11/18 13:03 09/11/18 13:03 09/11/18 13:03 09/11/18 13:03 Oxygen Flow Rate (L/min) 2 Oxygen Delivery Method Nasal Cannula Weight: 74.843 kg Body Mass Index (BMI) 28.3 Finger Stick Blood Glucose 176 Intake and Output for Last 24 Hours 09/09/18 09/10/18 09/11/18 23:59 23:59 23:59 Intake Total 1200 / 1200 4331 / 4331 1052 / 1052 Output Total 600 / 600 1979 / 1979 600 / 600 Balance 600 / 600 2351 / 2351 452 / 452 Microbiology Past 72 Hours 09/09/18 11:45 Blood Culture (Wb) - Left Forearm Blood Culture - Preliminary No growth in 48 hours. 09/09/18 11:30 Blood Culture (Wb) - Anticubital Left Blood Culture - Preliminary No growth in 48 hours. 09/09/18 12:00 Urine Catheter - Catheter Urine Culture - Final Culture exhibits no growth. Laboratory Results 09/11/18 05:16: WBC 8.7, RBC 3.47 L, Hgb 10.4 L, Hct 31.6 L, MCV 91.1, MCH 30.0, MCHC 32.9, RDW 12.8, RDW Differential 41.6, Plt Count 276, MPV 8.5 09/11/18 05:16: Sodium 139, Potassium 4.3, Chloride 104, Carbon Dioxide 30.0, Anion Gap 5, BUN 13, Creatinine 0.87, Estim Creat Clear Calc 45.28, Est GFR (MDRD) Af Amer 81, Est GFR (MDRD) Non-Af 67, BUN/Creatinine Ratio 15.0, Glucose 106, Calcium 8.6, Magnesium 1.8 Current Medications Acetaminophen (Tylenol) 650 mg PO Q6H PRN PRN PRN Reason: Mild Pain (1-3)/Temp > 100.7 F Aspirin (Aspirin, Baby) 81 mg PO DAILY@0800 [facility] Last Admin: 09/11/18 07:24 Dose: 81 mg Atorvastatin Calcium (Lipitor) 20 mg PO QHS [facility] Last Admin: 09/10/18 22:45 Dose: 20 mg Clonidine (Catapres) 0.05 mg PO BID [facility] Last Admin: 09/11/18 09:04 Dose: 0.05 mg Fluoxetine HCl (Prozac) 60 mg PO DAILY [facility] Last Admin: 09/11/18 09:06 Dose: 60 mg Heparin Sodium (Porcine) (Heparin Na) 5,000 unit SC Q8 [facility] Last Admin: 09/11/18 13:02 Dose: 5,000 unit Hydroxyzine Pamoate (Vistaril Pamoate Capsule) 50 mg PO QHS PRN PRN PRN Reason: SLEEP Last Admin: 09/10/18 22:45 Dose: 50 mg Cefazolin Sodium () 1 gm in 50 mls @ 100 mls/hr IV Q8H [facility] Last Admin: 09/11/18 09:07 Dose: 100 mls/hr Lorazepam (Ativan) 1 mg PO BID [facility] Last Admin: 09/11/18 09:04 Dose: 1 mg Losartan Potassium (Cozaar) 50 mg PO DAILY [facility] Last Admin: 09/11/18 09:07 Dose: 50 mg Minoxidil (Loniten) 2.5 mg PO BID [facility] Last Admin: 09/11/18 09:07 Dose: 2.5 mg Nutritional Formula (Lactose Free) (Ensure Enlive) 120 ml PO 4X/DAY [facility] Last Admin: 09/11/18 13:01 Dose: 120 ml Ondansetron HCl (Zofran) 4 mg IV Q6H PRN PRN PRN Reason: NAUSEA Last Admin: 09/10/18 10:59 Dose: 4 mg Pantoprazole Sodium (Protonix) 20 mg PO DAILY [facility] Last Admin: 09/11/18 09:06 Dose: 20 mg Pramipexole Dihydrochloride (Mirapex) 0.75 mg PO QHS [facility] Last Admin: 09/10/18 22:45 Dose: 0.75 mg Promethazine HCl (Phenergan) 12.5 mg IM Q4H PRN PRN PRN Reason: NAUSEA/VOMITING Senna (Senokot) 1 tablet PO DAILY [facility] Last Admin: 09/11/18 13:01 Dose: 1 tablet Sodium Chloride () 5 - 15 ml IV UD PRN PRN Reason: SALINE FLUSH Last Admin: 09/11/18 10:00 Dose: 10 ml Medical Necessity - Tobacco Use Smoking Status: Never smoker Tobacco Use: Non-smoker Assessment/Plan All Active Problems Confusion (Acute) Influenza (Resolved) Takotsubo syndrome (Resolved) Gastroenteritis (Resolved) Hypoxia (Acute) Generalized weakness (Acute) Abdominal pain (Resolved) Diarrhea (Resolved) Patient is a 77-year-old lady recently diagnosed with UTI seen in the emergency department discharged home on Bactrim and [place] presented with worsening confusion and significant nausea 1. Acute encephalopathy secondary to infectious encephalopathy from UTI admitted to regular nursing floor started on cefazolin cultures sent 2. Acute cystitis with Citrobacter patient started on cefazolin based on recent cultures obtained on 09/07/2018 3. Severe dehydration secondary to decreased oral intake admitted to regular nursing floor where patient is being management IV fluids with monitoring of electrolyte 4. Hypovolemic hyponatremia on IV fluids with monitoring of electrolyte 5. Benign essential hypertension blood pressure controlled continue with home medications 6. Dyslipidemia-patient is on statin therapy, continued at home dose 7. Chronic diastolic congestive heart failure echo obtained on 10/10/2017 demonstrated EF of 75% with RVSP of 48 8. Chronic lower extremity lymphedema secondary to patient chronic diastolic heart failure in addition to her pulmonary hypertension 9. large diaphragmatic hernia radiating into the right anterior thoracic cavity-patient has been evaluated concerning this before and has declined surgery due to the risk. 10. DVT prophylaxis SC heparin 11. Physical deconditioning requested for PT OT eval and group social worker to assist with discharge planning Code Visit Inpatient E&M: 29516 Subs Hosp L2
[2018-09-11] MEDS: Albuterol 2.5 MG/3 ML VIAL.NEB. INHALATION (17:06)
[2018-09-11] MEDS: Pramipexole Di-HCl 0.25 MG Tablet 0.75 MG PO (20:58)
[2018-09-11] MEDS: Atorvastatin Calcium 20 MG Tablet PO (20:58)
[2018-09-11] MEDS: hydrOXYzine PAM 25 MG Capsule 50 MG PO (21:02)
[2018-09-12] MEDS: Cefazolin 1 GM/50 ML BAG IV (01:51)
[2018-09-12 01:54] VITALS: BP 125/65; PULSE 74; RESP 16; TEMP 36.8; O2SAT 95
[2018-09-12] MEDS: Heparin Injection (Vial) 5,000 UNIT/ML VIAL 5000 UNIT SC (05:06)
[2018-09-12 06:05] LABS: Hematocrit 32.7 % (37-47); Hemoglobin 10.6 g/dl (12.0-15.0); Mean Corp Hgb Conc 32.4 g/gl (32-36); Mean Corpuscular Hgb 29.8 pg (27.0-32.0); Mean Corpuscular Volume 91.9 fL (81-99); Mean Platelet Vol. 8.3 fl (6.2-12.0); Platelet Count 253 K/mm3 (150-450); RBC Distribution Width SD 42.3 fl (35.1-43.9); Red Blood Count 3.56 M/mm3 (4.2-5.4); White Blood Count 7.9 K/mm3 (4.4-11.0)
[2018-09-12 06:22] LABS: Scan Indicated on CBC? Y/N NO
[2018-09-12 06:33] LABS: Anion Gap 7 (5-15); BUN 10 mg/dL (7-18); BUN/Creat Ratio 14.5 RATIO (10-20); Calcium,Total 8.7 mg/dL (8.5-10.1); Chloride 103 mmol/L (98-107); Creatinine, Serum 0.69 mg/dL (0.55-1.02); EST Glomerular Filtration Rate 87 mL/min (>60); Est Glom Filt Rate - Afr Amer 105 mL/min (>60); Estimated Creatinine Clearance 39.39 ml/min; Glucose 103 mg/dL (74-106); Potassium 4.4 mmol/L (3.5-5.1); Sodium Level 136 mmol/L (136-145)
[2018-09-12 07:54] VITALS: O2SAT 97
--- NOTE | 2018-09-12 09:18 | PCM.TXEXTCAR ---
- Diet 09/09/18 14:51 Diet: Regular Diet Food consistency:: Regular Liquid Consistency:: Regular/Thin - Routine Orders/Code Status Code Status: Full Code - Therapies Physical Therapy: Eval and Treat Occupational Therapy: Eval and Treat - Allergies/Procedures Done in Hospital Allergies/Adverse Reactions: Allergies acetaminophen [From [place]] Adverse Reaction (Verified 09/11/18 09:12) Nausea hydrocodone [From [place]] Adverse Reaction (Verified 09/11/18 09:12) Nausea sulfamethoxazole [From Bactrim] Adverse Reaction (Verified 09/11/18 09:11) Nausea trimethoprim [From Bactrim] Adverse Reaction (Verified 09/11/18 09:11) Nausea - Type of Care/Length of Stay Estimated LOS: Convalescent Care Less Than 30 days Type of Care Needed: Skilled Rehab Potential: Good Prognosis: Good - Additional Orders/Day of Discharge Day of Discharge: 09/12/18 - Follow Up Care Primary Care Physician: Jose L Valenzuela MD [Primary Care Provider] -
--- NOTE | 2018-09-12 09:21 | PCM.PN.HOSP ---
Subjective: Seen Complains of constipation Objective: GENERAL: cooperative HEENT: Atraumatic; dry oral mucosa EYES; Anicteric, Normal Conjunctiva NECK; supple, normal thyroid, RESPIRATORY: Diminished to auscultation bilaterally, CARDIOVASCULAR: Regular S1 S2, GI: soft, non-tender, normoactive bowel sounds, : No Renal angle tenderness; EXTREMITIES: No edema, no clubbing, no cyanosis. MUSCULOSKELETAL: No Joint Tenderness; NEURO: Awake; no lateralizing signs. SKIN: No Rash PSYCH; Flat affect Vitals/I&O's: Vital Signs Temp Pulse Resp BP Pulse Ox 98.3 F 74 16 125/65 H 97 09/12/18 01:54 09/12/18 01:54 09/12/18 01:54 09/12/18 01:54 09/12/18 07:54 Oxygen Flow Rate (L/min) 2 Oxygen Delivery Method Nasal Cannula Weight: 74.843 kg Body Mass Index (BMI) 28.3 Finger Stick Blood Glucose 176 Intake and Output for Last 24 Hours 09/10/18 09/11/18 09/12/18 23:59 23:59 23:59 Intake Total 4331 / 4331 1651 / 1651 Output Total 1979 / 1979 1550 / 1550 900 / 900 Balance 2351 / 2351 101 / 101 -900 / -900 Microbiology Past 72 Hours 09/09/18 11:45 Blood Culture (Wb) - Left Forearm Blood Culture - Preliminary No growth in 48 hours. 09/09/18 11:30 Blood Culture (Wb) - Anticubital Left Blood Culture - Preliminary No growth in 48 hours. 09/09/18 12:00 Urine Catheter - Catheter Urine Culture - Final Culture exhibits no growth. Laboratory Results 09/12/18 05:46: WBC 7.9, RBC 3.56 L, Hgb 10.6 L, Hct 32.7 L, MCV 91.9, MCH 29.8, MCHC 32.4, RDW 13.0, RDW Differential 42.3, Plt Count 253, MPV 8.3 09/12/18 05:46: Sodium 136, Potassium 4.4, Chloride 103, Carbon Dioxide 26.0, Anion Gap 7, BUN 10, Creatinine 0.69, Estim Creat Clear Calc 39.39, Est GFR (MDRD) Af Amer 105, Est GFR (MDRD) Non-Af 87, BUN/Creatinine Ratio 14.5, Glucose 103, Calcium 8.7 Current Medications Acetaminophen (Tylenol) 650 mg PO Q6H PRN PRN PRN Reason: Mild Pain (1-3)/Temp > 100.7 F Albuterol Sulfate (Ventolin Aerosols) 2.5 mg INHALATION Q4H PRN PRN PRN Reason: SOB &/OR WHEEZING Last Admin: 09/11/18 17:06 Dose: 2.5 mg Aspirin (Aspirin, Baby) 81 mg PO DAILY@0800 [facility] Last Admin: 09/11/18 07:24 Dose: 81 mg Atorvastatin Calcium (Lipitor) 20 mg PO QHS [facility] Last Admin: 09/11/18 20:58 Dose: 20 mg Cephalexin (Keflex) 500 mg PO BID [facility] Clonidine (Catapres) 0.05 mg PO BID [facility] Last Admin: 09/11/18 20:57 Dose: 0.05 mg Fluoxetine HCl (Prozac) 60 mg PO DAILY [facility] Last Admin: 09/11/18 09:06 Dose: 60 mg Heparin Sodium (Porcine) (Heparin Na) 5,000 unit SC Q8 [facility] Last Admin: 09/12/18 05:06 Dose: 5,000 unit Hydroxyzine Pamoate (Vistaril Pamoate Capsule) 50 mg PO QHS PRN PRN PRN Reason: SLEEP Last Admin: 09/11/18 21:02 Dose: 50 mg Lorazepam (Ativan) 1 mg PO BID [facility] Last Admin: 09/11/18 21:01 Dose: 1 mg Losartan Potassium (Cozaar) 50 mg PO DAILY [facility] Last Admin: 09/11/18 09:07 Dose: 50 mg Minoxidil (Loniten) 2.5 mg PO BID [facility] Last Admin: 09/11/18 20:59 Dose: 2.5 mg Nutritional Formula (Lactose Free) (Ensure Enlive) 120 ml PO 4X/DAY [facility] Last Admin: 09/11/18 21:03 Dose: 120 ml Ondansetron HCl (Zofran) 4 mg IV Q6H PRN PRN PRN Reason: NAUSEA Last Admin: 09/10/18 10:59 Dose: 4 mg Pantoprazole Sodium (Protonix) 20 mg PO DAILY [facility] Last Admin: 09/11/18 09:06 Dose: 20 mg Pramipexole Dihydrochloride (Mirapex) 0.75 mg PO QHS [facility] Last Admin: 09/11/18 20:58 Dose: 0.75 mg Promethazine HCl (Phenergan) 12.5 mg IM Q4H PRN PRN PRN Reason: NAUSEA/VOMITING Senna (Senokot) 1 tablet PO DAILY [facility] Last Admin: 09/11/18 13:01 Dose: 1 tablet Sodium Chloride () 5 - 15 ml IV UD PRN PRN Reason: SALINE FLUSH Last Admin: 09/11/18 17:37 Dose: 10 ml Medical Necessity - Tobacco Use Smoking Status: Never smoker Tobacco Use: Non-smoker Assessment/Plan All Active Problems Confusion (Acute) Influenza (Resolved) Takotsubo syndrome (Resolved) Gastroenteritis (Resolved) Hypoxia (Acute) Generalized weakness (Acute) Abdominal pain (Resolved) Diarrhea (Resolved) Patient is a 77-year-old lady recently diagnosed with UTI seen in the emergency department discharged home on Bactrim and [place] presented with worsening confusion and significant nausea 1. Acute encephalopathy secondary to infectious encephalopathy from UTI admitted to regular nursing floor started on cefazolin cultures sent 2. Acute cystitis with Citrobacter patient started on cefazolin based on recent cultures obtained on 09/07/2018 3. Severe dehydration secondary to decreased oral intake admitted to regular nursing floor where patient is being management IV fluids with monitoring of electrolyte 4. Hypovolemic hyponatremia on IV fluids with monitoring of electrolyte 5. Benign essential hypertension blood pressure controlled continue with home medications 6. Dyslipidemia-patient is on statin therapy, continued at home dose 7. Chronic diastolic congestive heart failure echo obtained on 10/10/2017 demonstrated EF of 75% with RVSP of 48 8. Chronic lower extremity lymphedema secondary to patient chronic diastolic heart failure in addition to her pulmonary hypertension 9. large diaphragmatic hernia radiating into the right anterior thoracic cavity-patient has been evaluated concerning this before and has declined surgery due to the risk. 10. DVT prophylaxis SC heparin 11. Physical deconditioning requested for PT OT eval and social services aide to assist with discharge planning Code Visit Inpatient E&M: 93803 Subs Hosp L2
--- NOTE | 2018-09-12 09:23 | DS.PCM_ITS ---
Discharge Date and Diagnosis Date of Admission: 09/09/18 Date of Discharge: 09/12/18 - Primary Discharge Diagnosis Acute Cystitis - Secondary Discharge Diagnosis Chronic Problems Diaphragmatic hernia (Chronic) Diabetes mellitus (Chronic) Coronary artery disease (Chronic) Obesity (Chronic) GERD (gastroesophageal reflux disease) (Chronic) Hx of appendectomy (Chronic) Benign essential HTN (Chronic) Depression (Chronic) HLD (hyperlipidemia) (Chronic) Overweight (BMI 25.0-29.9) (Chronic) CAD (coronary artery disease) (Chronic) Diabetes mellitus, type II (Chronic) Hyponatremia (Chronic) also has chronic mild hyponatremia Traumatic closed nondisplaced fracture of neck of left femur (Chronic) Status post closed reduction with internal fixation (Chronic) left femur 06/22, Dr Spears, [facility] Tinea unguium (Chronic) Dyskinesia, tardive (Chronic) Brain aneurysm (Chronic) Hypertension (Chronic) Diabetic neuropathy (Chronic) Hospital Course and Treatment Operations: None Summary of Care Provided: Patient is a 77-year-old lady recently diagnosed with UTI seen in the emergency department discharged home on Bactrim and [place] presented with worsening confusion and significant nausea 1. Acute encephalopathy secondary to infectious encephalopathy from UTI admitted to regular nursing floor started on cefazolin cultures sent 2. Acute cystitis with Citrobacter patient started on cefazolin based on recent cultures obtained on 09/07/2018 3. Severe dehydration secondary to decreased oral intake admitted to regular nursing floor where patient is being management IV fluids with monitoring of electrolyte 4. Hypovolemic hyponatremia on IV fluids with monitoring of electrolyte 5. Benign essential hypertension blood pressure controlled continue with home medications 6. Dyslipidemia-patient is on statin therapy, continued at home dose 7. Chronic diastolic congestive heart failure echo obtained on 10/10/2017 demonstrated EF of 75% with RVSP of 48 8. Chronic lower extremity lymphedema secondary to patient chronic diastolic heart failure in addition to her pulmonary hypertension 9. Large diaphragmatic hernia radiating into the right anterior thoracic cavity-patient has been evaluated concerning this before and has declined surgery due to the risk. 10. DVT prophylaxis SC heparin 11. Physical deconditioning requested for PT OT eval and social service agency director to assist with discharge planning Objective: GENERAL: cooperative HEENT: Atraumatic; dry oral mucosa EYES; Anicteric, Normal Conjunctiva NECK; supple, normal thyroid, RESPIRATORY: Diminished to auscultation bilaterally, CARDIOVASCULAR: Regular S1 S2, GI: soft, non-tender, normoactive bowel sounds, : No Renal angle tenderness; EXTREMITIES: No edema, no clubbing, no cyanosis. MUSCULOSKELETAL: No Joint Tenderness; NEURO: Awake; no lateralizing signs. - Physical Exam Vital Signs Temp Pulse Resp BP Pulse Ox 98.3 F 74 16 125/65 H 97 09/12/18 01:54 09/12/18 01:54 09/12/18 01:54 09/12/18 01:54 09/12/18 07:54 Oxygen Flow Rate (L/min) 2 Oxygen Delivery Method Nasal Cannula Weight: 74.843 kg Body Mass Index (BMI) 28.3 Finger Stick Blood Glucose 176 Intake and Output for Last 24 Hours 09/10/18 09/11/18 09/12/18 23:59 23:59 23:59 Intake Total 4331 / 4331 1651 / 1651 Output Total 1979 / 1979 1550 / 1550 900 / 900 Balance 2351 / 2351 101 / 101 -900 / -900 Microbiology Past 72 Hours 09/09/18 11:45 Blood Culture - Preliminary Blood Culture (Wb) - Left Forearm No growth in 48 hours. 09/09/18 11:30 Blood Culture - Preliminary Blood Culture (Wb) - Anticubital Left No growth in 48 hours. 09/09/18 12:00 Urine Culture - Final Urine Catheter - Catheter Culture exhibits no growth. Laboratory Tests Past 24 Hrs 09/12/18 09/12/18 05:46 05:46 WBC 7.9 RBC 3.56 L Hgb 10.6 L Hct 32.7 L MCV 91.9 MCH 29.8 MCHC 32.4 RDW 13.0 RDW Differential 42.3 Plt Count 253 MPV 8.3 Sodium 136 Potassium 4.4 Chloride 103 Carbon Dioxide 26.0 Anion Gap 7 BUN 10 Creatinine 0.69 Estim Creat Clear Calc 39.39 Est GFR (MDRD) Af Amer 105 Est GFR (MDRD) Non-Af 87 BUN/Creatinine Ratio 14.5 Glucose 103 Calcium 8.7 Discharge Diet: No Restrictions Home Medications: Medications to take at Discharge Fluoxetine [Prozac] 60 mg PO DAILY 03/17/17 Lorazepam [Ativan] 1 mg PO BID 03/17/17 Losartan Potassium 50 mg PO DAILY 03/17/17 Pantoprazole Sodium [Protonix] 20 mg PO DAILY 03/17/17 Pramipexole Di-HCl [Pramipexole Dihydrochloride] 0.75 mg PO QHS 03/17/17 Simvastatin 40 mg PO QHS 03/17/17 Minoxidil [Loniten] 2.5 mg PO BID 10/19/17 Melatonin 10 mg PO QHS tablet 11/13/17 Phenazopyridine [Pyridium] 200 mg PO TID #9 tab 09/07/18 Aspirin [Aspirin, Baby] 81 mg PO DAILY@0800 09/09/18 Clonidine HCl [Catapres] 0.05 mg PO BID 09/09/18 Nystatin Powder [Mycostatin Powder] 1 applic TOPICAL BID PRN 09/09/18 Acetaminophen [Tylenol Tablet] 650 mg PO Q6H PRN PRN tablet 09/12/18 Albuterol Aerosols [Ventolin Aerosols] 2.5 mg INHALATION Q4H PRN PRN vial.neb. 09/12/18 Cephalexin [Keflex] 500 mg PO BID #10 cap 09/12/18 Ensure Enlive 120 ml PO 4X/DAY liquid 09/12/18 Lorazepam [Ativan] 1 mg PO BID #10 tab 09/12/18 Senna [Senokot] 1 tablet PO DAILY tablet 09/12/18 hydrOXYzine pamoate capsule [Vistaril pamoate capsule] 50 mg PO QHS PRN PRN capsule 09/12/18 Following Prescrptions Were Given to Patient: Cephalexin [Keflex] 500 mg PO BID #10 cap Lorazepam [Ativan] 1 mg PO BID #10 tab Primary Care Physician: Jose L Valenzuela MD [Primary Care Provider] - Disposition: Intermediate facility Minutes spent on discharge:: 35 Medical Necessity - Tobacco Use Smoking Status: Never smoker Tobacco Use: Non-smoker Meaningful Use Info Meaningful Use Diagnoses (Choose all that apply): None applicable Code Visit Inpatient E&M: 83028 Disch Hosp
[2018-09-12 09:25] VITALS: BP 151/71; PULSE 75; RESP 18; TEMP 37.3; O2SAT 94
[2018-09-12] MEDS: Pantoprazole Sodium 20 MG Tablet PO (09:25)
[2018-09-12] MEDS: Senna Tablet 1 TABLET PO (09:25)
[2018-09-12] MEDS: Minoxidil 2.5 MG Tablet PO (09:25)
[2018-09-12] MEDS: Losartan Potassium 50 MG Tablet PO (09:25)
[2018-09-12] MEDS: Aspirin 81 MG TAB.CHEW PO (09:26)
[2018-09-12] MEDS: FLUoxetine 20 MG Capsule 60 MG PO (09:26)
[2018-09-12] MEDS: cloNIDine HCl 0.1 MG Tablet 0.05 MG PO (09:26)
[2018-09-12] MEDS: LORazepam 1 MG Tablet PO (09:28)
[2018-09-12] MEDS: Cephalexin 500 MG Capsule PO (09:29)
--- NOTE | 2018-09-12 10:42 | CASEMGMT ---
Social Work: TC from Mary Gray RN CM. Mary states that patient is ready for D/C today and referral has been made to TCU. TC to Sima in TCU. Sima states that patient is accepted and can be admitted today pending [facility] cert[facility]oke with Yasmin, nurse reviewer. Yasmin is approving TCU admission and is requesting clinicals 48 within TCU admission. Yasmin aware that patient will be admitted to [facility] TCU today. TC to Sima in TCU. Sima aware that patient has been approved for TCU admission by [facility] and that clinicals ed need to be faxed within 48 hours of admission. TC to LINDEN Ferrer. Mary to notify physician and RN CM. PLAN: Patient to be discharged to TCU for skilled care today. BRANDON Warner
[2018-09-12] MEDS: Magnesium Citrate 300 ML PO (12:09)
--- NOTE | 2018-09-12 12:23 | CASEMGMT ---
Social Work Note SW spoke with pt to discuss discharge plans. SW introduced self and role at [facility]. Pt confirms that she wants to discharge to TCU. SW informed pt that TCU has a bed, is able to accept pt, and pre-cert has been obtained. Pt states her son will be in today. Plan: TCU today Mary Harmon SKIVER MACHINE, TAPE SEWING MACHINE OPERATOR
[2018-09-12 12:40] VITALS: O2SAT 88
--- NOTE | 2018-09-12 15:04 | NURSING ---
REPORT CALLED TO PRACHI ORNELAS ON TCU FOR DISCHARGE.
[2018-09-12 15:10] VITALS: BP 152/82; PULSE 77; RESP 18; TEMP 37.3; O2SAT 93
--- OUTSIDE RECORDS SUMMARY | 2018-12-12 02:16 | XMS RPT_ITS ---
:1940 Author Organization OHIP Support Name Relationship Address Phone ARNULFO HYATTY/POA Unavailable [address] + [place] [address] R Unavailable Unavailable Unavailable EDMAR, KALIA Unavailable [address] + [place] [address] R Unavailable Unavailable Unavailable EDMAR, KALIA Unavailable [address] + [place] [address] R Unavailable Unavailable Unavailable EDMAR, KALIA Unavailable [address] + [place] [address] R Unavailable Unavailable Unavailable EDMAR, KALIA Unavailable [address] + [place] [address] R Unavailable Unavailable Unavailable EDMAR, KALIA Unavailable [address] + [place] [address] R Unavailable Unavailable Unavailable EDMAR, KALIA Unavailable [address] + [place] [address] R Unavailable Unavailable Unavailable EDMAR, KALIA Unavailable Unavailable + [place] [address] R Unavailable Unavailable Unavailable EDMAR, KALIA Unavailable [address] + [place] [address] R Unavailable Unavailable Unavailable EDMAR, KALIA Unavailable Unavailable + [place] [address] R Unavailable Unavailable Unavailable EDMAR, KALIA Unavailable Unavailable + [place] [address] R Unavailable Unavailable Unavailable EDMAR, KALIA Unavailable Unavailable + [place] [address] R Unavailable Unavailable Unavailable EDMAR, KALIA Unavailable Unavailable + [place] [address] R Unavailable Unavailable Unavailable EDMAR, KALIA Unavailable Unavailable + [place] [address] R Unavailable Unavailable Unavailable EDMAR, KALIA Unavailable Unavailable + [place] [address] R Unavailable Unavailable Unavailable EDMAR, KALIA Unavailable Unavailable + [place] [address] R Unavailable Unavailable Unavailable EDMAR, KALIA Unavailable . + [place] [address] R Unavailable Unavailable Unavailable EDMAR, KALIA Unavailable Unavailable + [place] [address] R Unavailable Unavailable Unavailable EDMAR, KALIA Unavailable Unavailable + [place] [address] R Unavailable Unavailable Unavailable EDMAR, KALIA Unavailable . + [place] [address] R Unavailable Unavailable Unavailable EDMAR, KALIA Unavailable Unavailable + [place] [address] R Unavailable Unavailable Unavailable EDMAR, KALIA Unavailable Unavailable + [place] [address] R Unavailable Unavailable Unavailable EDMAR, KALIA Unavailable . + [place] [address] R Unavailable Unavailable Unavailable Care Team Providers Name Role Phone Jose L Valenzuela Attending Unavailable Valenzuela, Jose L Primary Care Unavailable Valenzuela, Jose L Primary Care Unavailable Tereletsky, Rommel Admitting Unavailable Tereletsevette, Rommel Referring Unavailable Vasiliy Conte Attending Unavailable Valenzuela, Jose L Primary Care Unavailable Emanuel Boyer Attending Unavailable Pradip, Perez Chi Admitting Unavailable Pradip, Perez Chi Attending Unavailable Pradip, Perez Chi Referring Unavailable Nicolas, Jose L Primary Care Unavailable Tereletsevette, Rommel Admitting Unavailable Vasiliy Conte Attending Unavailable Termarta, Rommel Referring Unavailable Valenzuela, Jose L Primary Care Unavailable Vasiliy Conte Consulting Unavailable Jade, Rommel Admitting Unavailable Vasiliy Conte Attending Unavailable Termarta, Rommel Referring Unavailable Valenzuela, Jose L Primary Care Unavailable Vasiliy Conte Consulting Unavailable Nicolas, Jose L Primary Care Unavailable Shelley [place] Attending Unavailable Valenzuela, Jose L Attending Unavailable Valenzuela, Jose L Primary Care Unavailable Jose L Valenzuela Attending Unavailable Valenzuela, Jose L Primary Care Unavailable Valenzuela, Jose L Primary Care Unavailable Maineeletsky, Rommel Admitting Unavailable Jade, Rommel Attending Unavailable Cresencio Barkley Consulting Unavailable Paola Lambert Attending Unavailable Ungur, Remus Referring Unavailable Tereletsky, Rommel Admitting Unavailable Tereletsky, Rommel Attending Unavailable Tereletsky, Rommel Referring Unavailable Valenzuela, Jose L Primary Care Unavailable Tereletsky, Rommel Consulting Unavailable Tereletsky, Rommel Admitting Unavailable Vasiliy Conte Attending Unavailable Tereletsky, Rommle Referring Unavailable Valenzuela, Jose L Primary Care Unavailable KitfaustinoeVasiliy Consulting Unavailable Immanuel Mancia Attending Unavailable Tereletsky, Rommel Referring Unavailable Valenzuela, Jose L Primary Care Unavailable Dilip Okeefe Attending Unavailable Pradip, Perez Chi Admitting Unavailable Pradip, Perez Chi Attending Unavailable Valenzuela, Jose L Primary Care Unavailable Cresencio Barkley Attending Unavailable Tereletsky, Rommel Referring Unavailable Tereletsky, Rommel Admitting Unavailable Robotham, Estefania Attending Unavailable Valenzuela, Jose L Primary Care Unavailable Robotham, Estefania Consulting Unavailable Ayanna, Gurmeet Francisco Consulting Unavailable Maddy Bolaños Consulting Unavailable Tereletsky, Rommel Admitting Unavailable Tereletsky, Rommel Attending Unavailable Valenzuela, Jose L Primary Care Unavailable Tereletsky, Rommel Consulting Unavailable Valenzuela, Jose L Primary Care Unavailable Tereletsky, Rommel Admitting Unavailable Maddy Bolaños Attending Unavailable Robotham, Estefania Consulting Unavailable AyannaGurmeet Consulting Unavailable Tereletsky, Rommel Admitting Unavailable Cesar Fernandez Attending Unavailable Valenzuela, Jose L Primary Care Unavailable Cresencio Barkley Consulting Unavailable Tereletsky, Rommel Consulting Unavailable Tereletsky, Rommel Admitting Unavailable Valenzuela, Jose L Primary Care Unavailable Cresencio Barkley Consulting Unavailable Tereletsky, Rommel Attending Unavailable Tereletsky, Rommel Consulting Unavailable Valenzuela, Jose L Attending Unavailable Valenzuela, Jose L Referring Unavailable Valenzuela, Jose L Primary Care Unavailable RAIZA LUDWIG Admitting Unavailable RAIZA LUDWIG Attending Unavailable KEMI, SUDISH Attending Unavailable JOSE L VALENZUELA PAOLA Referring Unavailable KEMI, SUDISH Referring Unavailable KEMI, SUDISH Referring Unavailable AWENDER, H S Admitting Unavailable DIANA GEORGE Primary Care Unavailable AWENDER, H S Attending Unavailable PROBLEMS PROBLEMS DATE TYPE CONDITION / CODE ATTENDING STATUS SOURCE 09/30/2018 Unknown R53.81 - Other Pradip, Perez Chi Active [place] malaise / Community R53.81(ICD-10) Hospital Repository 09/07/2018 Unknown N39.0 - Urinary Ungur, Remus Active [place] tract infection, Community site not specified / Hospital N39.0(ICD-10) Repository 10/08/2018 Unknown M79.89 - Other Paola Lambert Active [place] specified soft Community tissue disorders / Hospital M79.89(ICD-10) Repository 05/01/2018 Unknown E87.1 - Jose L Valenzuela Active [place] Hypo-osmolality and Community hyponatremia / Hospital E87.1(ICD-10) Repository 01/24/2018 Unknown R60.9 - Edema, Jose L Valenzuela Active [place] unspecified / Community R60.9(ICD-10) Hospital Repository 12/12/2017 Unknown R06.02 - Shortness Sary, Active [place] of breath / Dilip Community R06.02(ICD-10) Hospital Repository 12/12/2017 Unknown K44.9 - Pradip, Perez Chi Active [place] Diaphragmatic hernia Community without obstruction Hospital or gangrene / Repository K44.9(ICD-10) 12/12/2017 Unknown 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, 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, Hospital unspecified / Repository J44.9(ICD-10) 10/26/2017 Active Diaphragmatic hernia AWENDER, Active [place] with obstruction, RAIZA S Clinic Other without gangrene / [place] K44.0(ICD-10) Repository 10/26/2017 Active Diaphragmatic hernia AWENDER, Active [place] without obstruction RAIZA S Clinic Other or gangrene / [place] K44.9(ICD-10) Repository 10/26/2017 Admitting Unknown / AWENDER, H S Active [facility](Unknown[facility] Repository 12/12/2017 Unknown I25.10 - Immanuel Mancia Active [place] 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.] her and he is 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 Physical Examination: Older female no acute [...] uncertain etiology This note was generated with [employer] dictation software. It may contain incorrect words, [...] your Primary Care Provider. Call [facility] ([phone]) or report to the closest Emergency Room. Call 911 if necessary. 10/09/18 1605 <Electronically signed by Emanuel Boyer MD> Date Emanuel Boyer MD Cosigner Signature (If Indicated): Date CC: Jose L Valenzuela MD DISCHARGE INSTRUCTION Observed: 10/09/2018 Status: F Source: [place] 4:04 PM [facility] REPOSITORY [facility] Medical Records Department [address] [place] [address] Discharge Instruction 10/09/18 1355 MR#: [id number] Acct: [id number] Name: VEE HYATT Maggy Rep #: [id number] : 1940 77 From: Emanuel Boyer MD [...] your Primary Care Provider. Call [facility] ([phone]) or report to the closest Emergency Room. Call 911 if necessary. 10/09/18 4394 <Electronically signed by Emanuel Boyer MD> Date Emanuel Boyer MD Cosigner Signature (If Indicated): Date CC: Jose L Valenzuela MD ABDOMEN/PELVIS W IV CONT Observed: 10/09/2018 Status: F Source: [facility] 10:46 AM [facility] REPOSITORY [facility] Imaging Services [address] [place] [address] Abdomen/Pelvis W IV Cont ONLY MR#: [id number] Acct: [id number] Name: VEE HYATT Rep #: [id number] : 1940 F 77 From: Deanne Dan MD PCP: Jose L Valenzuela MD Status: REG ER Study: Abdomen/Pelvis W IV Cont ONLY Date of Exam: 10/09/18 Exam# [id number] Ordering Dr: Emanuel Boyer MD STUDY: CT [...] Emanuel Boyer MD; Jose L Valenzuela MD Energy Administrator: Signed URINALYSIS, COMPLETE Collected: 10/09/2018 Status: F Source: [place] 10:35 AM [facility] REPOSITORY Order Comment: Order Date: 10/09/18 Has [...] URINE SEEN Performed By: #### L400.0001 #### [facility] Laboratory [address] [place], [place], [address] CBC W/DIFF, AUTOMATED Collected: 10/09/2018 Status: F Source: [place] 10:01 AM [facility] REPOSITORY TYPE CODE TESTS RESULT OUT OF [...] Lymph 1.56 Performed By: #### L100.0100 #### [facility] [address] [place], [place], [address] BASIC METABOLIC Collected: 10/09/2018 Status: F Source: [place] PROFILE (BMP) 10:01 AM [facility] REPOSITORY TYPE CODE TESTS RESULT OUT OF [...] Performed By: #### L500.2500, L500.3400, L501.2450 #### [facility] [address] [facility] [place], [place], [address] LIVER PROFILE Collected: 10/09/2018 Status: F Source: [place] 10:01 [facility] TYPE CODE TESTS RESULT OUT OF [...] Performed By: #### L500.2500, L500.3400, L501.2450 #### [facility] [address] [place], [address] LIPASE Collected: 10/09/2018 Status: F Source: [place] 10:01 [facility] TYPE CODE TESTS RESULT OUT OF REFERENCE UNITS RANGE LAB L501.2450 73-393 U/L Low LIPASE 44 Performed By: #### L500.2500, L500.3400, L501.2450 #### [facility] [address] [place], [address] CBC W/DIFF, AUTOMATED Collected: 09/27/2018 Status: F Source: [place] 5:55 AM [facility] REPOSITORY TYPE CODE TESTS RESULT OUT OF [...] Lymph 1.42 Performed By: #### L100.0100 #### [facility] [address] [place], [place], [address] BASIC METABOLIC Collected: 09/27/2018 Status: F Source: [place] PROFILE (BMP) 5:26 AM [facility] REPOSITORY TYPE CODE TESTS RESULT OUT OF [...] GAP 8 Performed By: #### L500.2500 #### [facility] [address] [place] [address]. [place], [address] DISCHARGE SUMMARY Observed: 09/25/2018 Status: F Source: [place] 8:42 PM [facility] REPOSITORY [facility] Medical Records Department [address] [place] [address] Discharge Summary 09/25/182039 MR#: [id number] Acct: [id number] Name: VEE HYATT Rep #: [id number] : 1940 77 From: Perez Moseley MD PCP: Jose L Valenzuela MD Status: ADM IN Y Location: [place] [address] Discharge Date and Diagnosis - Problem List [...] fixation (Chronic) left femur 06/22, Dr Spears, [facility] Tinea unguium (Chronic) Dyskinesia, tardive (Chronic) Brain [...] Status: F Source: [place] NOTE 8:42 PM [facility] REPOSITORY [facility] Medical Records Department [address] [place] [address] Home Health Progress Note Kzjn-fl-Jwfy Encounter Encounter Date: 09/25/182041 MR#: [id number] Acct: [id number] Name: VEE HYATT Rep #: [id number] : 1940 77 From: Perez Moseley MD PCP: Jose L Valenzuela MD Status: ADM IN Location: [place] [address] Home Health Note - Plan Overview of [...] DISCHARGE INSTRUCTION Observed: 09/25/2018 Status: F Source: [place] 8:40 PM [facility] REPOSITORY [facility] Medical Records Department [address] [place] [address] Instructions for Home/Discharge Instructions 09/25/182038 MR#: [id number] Acct: [id number] Name: VEE HYATT Rep #: [id number] : 1940 77 From: Perez Moseley MD [...] Uncontrolled pain Allergies/Adverse Reactions: Allergies acetaminophen [From [place]] Adverse Reaction (Verified 09/11/18 09:12) Nausea hydrocodone [From [place]] Adverse Reaction (Verified 09/11/18 09:12) Nausea sulfamethoxazole [...] BASIC METABOLIC Collected: 09/20/2018 Status: F Source: [place] PROFILE (BMP) 5:17 AM [facility] REPOSITORY TYPE CODE TESTS RESULT OUT OF [...] GAP 6 Performed By: #### L500.2500 #### [facility] [address] [facility] [place], [address] 12 LEAD ELECTROCARDIOGRAM Observed: 09/13/2018 Status: F Source: [place] 1:19 PM [facility] REPOSITORY [facility] Cardiovascular Services [address] [place] [address] 12 Lead EKG 09/09/18 1150 MR#: [id number] Acct: [id number] Name: VEE HYATT Rep #: [id number] : 1940 77 From: Orville Dumont MD [...] ECG Confirmed by NAVIN ARRIOLA, [place] ([id number]), newspaper editor managing KELLEN SUAREZ ([id number]) on 09/13/2018 1:19:02 PM Referred By: Rommel Hansen Confirmed By:ORVILLE DUMONT MD 09/13/18 1319 Date Orville Dumont MD CC: Vasiliy Conte MD; Kai Noble MD; Rommel Hansen DO; Jose L Valenzuela MD Signed CBC W/DIFF, AUTOMATED Collected: 09/13/2018 Status: F Source: [place] 5:12 AM [facility] REPOSITORY TYPE CODE TESTS RESULT OUT OF [...] Lymph 1.37 Performed By: #### L100.0100 #### [facility] [address] [place], [address] BASIC METABOLIC Collected: 09/13/2018 Status: F Source: [place] PROFILE ([facility]) 5:12 AM [facility] REPOSITORY TYPE CODE TESTS RESULT OUT OF [...] GAP 6 Performed By: #### L500.2500 #### [facility] [address] [place], [address] HISTORY AND PHYSICAL Observed: 09/12/2018 Status: F Source: [place] EXAM 10:06 PM [facility] REPOSITORY [facility] Medical Records Department [address] [place] [address] History and Physical 09/12/185 MR#: [id number] Acct: [id number] Name: VEE HYATT Rep #: [id number] : 1940 77 From: Perez Moseley MD PCP: Jose L Valenzuela MD Status: ADM IN Location: [place] [address] Problem List (1) Encephalopathy Status: Acute (2) [...] with below past medical history presented to [facility] Emergency Department 09/09/2018 with confusion. 09/09/2018 Doppler [...] fixation (Chronic) left femur 06/22, Dr Spears, [facility] Tinea unguium (Chronic) Dyskinesia, tardive (Chronic) Brain aneurysm (Chronic) Hypertension (Chronic) Diabetic neuropathy (Chronic) Allergies acetaminophen [From [place]] Adverse Reaction (Verified 09/11/18 09:12) Nausea hydrocodone [From [place]] Adverse Reaction (Verified 09/11/18 09:12) Nausea sulfamethoxazole [From Bactrim] Adverse Reaction (Verified 09/11/18 09:11) Nausea trimethoprim [From Bactrim] Adverse Reaction (Verified 09/11/18 09:11) Nausea Home Medications: Ambulatory Orders Medication Instructions Recorded Fluoxetine [Prozac] 60 mg PO DAILY 03/17/17 Surgical History: appendectomy, cholecystectomy, herniorrhaphy, tonsillectomy, - - 06/22/15 left hip CRIF Psychiatric History: Anxiety, Depression SKIVER UPPERS OR LININGS History: No pertinent SKIVER UPPERS OR LININGS history Lives: Alone Smoking Status: Never smoker [...] 60MG daily, 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 * Insomnia - Melatonin 10MG QHS, Doxepin 25MG QHS PRN. * Anxiety - Lorazepam 1MG BID, resident doing well with chronic shelter use, GDR clinically contraindicated. * Tinea Corporis [...] DISCHARGE SUMMARY Observed: 09/12/2018 Status: F Source: [place] 2:42 PM [facility] REPOSITORY [facility] Medical Records Department [address] [place] [address] Discharge Summary 09/12/18 0922 MR#: [id number] Acct: [id number] Name: VEE HYATT Rep #: [id number] : 1940 77 From: Vasiliy Conte MD PCP: Jose L Valenzuela MD Status: ADM IN Y Location: [place] [address] Discharge Date and Diagnosis Date of Admission: [...] fixation (Chronic) left femur 06/22, Dr Spears, [facility] Tinea unguium (Chronic) Dyskinesia, tardive (Chronic) Brain aneurysm (Chronic) Hypertension (Chronic) Diabetic neuropathy (Chronic) Hospital Course and Treatment Operations: None Summary of Care Provided: Patient is a 77-year-old lady recently diagnosed with UTI seen in the emergency department discharged home on Bactrim and [place] presented with worsening confusion and significant nausea [...] requested for PT OT eval and social insurance administrator to assist with discharge planning Objective: GENERAL: [...] Valenzuela MD [Primary Care Provider] - Disposition: Long Term facility Minutes spent on discharge:: 35 Medical Necessity - Tobacco Use Smoking Status: Never smoker Tobacco Use: Non-smoker Meaningful Use Info Meaningful Use Diagnoses (Choose all that apply): None applicable Code Visit Inpatient E AND M: [id number] Disch Hosp 09/12/18 1442 <Electronically signed by Vasiliy Conte MD> Date Vasiliy Conte MD Cosigner Signature (if applicable): Date CC: Vasiliy Conte MD; Jose L Valenzuela MD Signed TRANSFER TO [facility] Observed: 09/12/2018 Status: F Source: [facility] 9:20 AM [facility] REPOSITORY [facility] Medical Records Department [address] [place] [address] Transfer to [facility] Care MR#: [id number] Acct: [id number] Name: VEE HYATT Rep #: [id number] : 1940 77 From: Vasiliy Conte MD PCP: Jose L Valenzuela MD Status: ADM IN VEE HYATT (Patient) (Health Ins. Claim No.) (Day of Discharge to Facility) Certification of patient admission REQUIRED AT TIME OF ADMISSION. I CERTIFY THAT POST-HOSPITAL ECF SERVICES ARE REQUIRED TO BE GIVEN ON AN IN-PATIENT BASIS BECAUSE OF THE ABOVE NAMED PATIENT'S NEED FOR CORRECTION CARE ON A CONTINUING BASIS FOR THE [...] in Hospital Allergies/Adverse Reactions: Allergies acetaminophen [From [place]] Adverse Reaction (Verified 09/11/18 09:12) Nausea hydrocodone [From [place]] Adverse Reaction (Verified 09/11/18 09:12) Nausea sulfamethoxazole [...] F Source: [place] NO DIFF 5:46 AM [facility] REPOSITORY TYPE CODE TESTS RESULT OUT OF [...] MPV 8.3 Performed By: #### L100.0500 #### [facility] [address] [place], [address] BASIC METABOLIC Collected: 09/12/2018 Status: F Source: [place] PROFILE (BMP) 5:46 AM [facility] REPOSITORY TYPE CODE TESTS RESULT OUT OF [...] GAP 7 Performed By: #### L500.2500 #### [facility] [address] [place], [address] BASIC METABOLIC Collected: 09/11/2018 Status: F Source: [place] PROFILE (BMP) 5:16 AM [facility] REPOSITORY TYPE CODE TESTS RESULT OUT OF [...] 5 Performed By: #### L500.2500, L501.5200 #### [facility] [address] [place], [address] MAGNESIUM Collected: 09/11/2018 Status: F Source: [place] 5:16 AM [facility] REPOSITORY TYPE CODE TESTS RESULT OUT OF RANGE REFERENCE UNITS LAB L501.5200 1.6-2.6 mg/dL Normal MG 1.8 Performed By: #### L500.2500, L501.5200 #### [facility] [address] [facility] [place], [address] CBC-COMPLETE BLOOD CNT Collected: 09/11/2018 Status: F Source: [place] NO DIFF 5:16 AM [facility] REPOSITORY TYPE CODE TESTS RESULT OUT OF [...] MPV 8.5 Performed By: #### L100.0500 #### [facility] [address] [facility] [place], [address] CBC W/DIFF, AUTOMATED Collected: 09/10/2018 Status: F Source: [place] 5:25 AM [facility] REPOSITORY TYPE CODE TESTS RESULT OUT OF [...] Lymph 1.03 Performed By: #### L100.0100 #### [facility] [address] [place], [place], [address] BASIC METABOLIC Collected: 09/10/2018 Status: F Source: [place] PROFILE (BMP) 5:25 AM [facility] REPOSITORY TYPE CODE TESTS RESULT OUT OF [...] GAP 8 Performed By: #### L500.2500 #### [facility] [address] [facility] [place], [address] HISTORY AND PHYSICAL Observed: 09/09/2018 Status: F Source: [place] EXAM 7:47 PM [facility] REPOSITORY [facility] Medical Records Department [address] [place] [address] History and Physical 09/09/181924 MR#: [id number] Acct: [id number] Name: VEE HYATT Rep #: [id number] : 1940 77 From: Rommel Hansen DO PCP: Jose L Valenzuela MD Status: ADM AKIRA Y Location: MS3 [id number] Problem List (1) Generalized weakness Status: Acute (2) Confusion Status: Acute History of Present Illness Date of Admission: 09/09/18 Chief Complaint: Confusion, generalized weakness The patient is a 77 year old F was seen in the emergency room today at [facility] after being brought in at the direction [...] left hip CRIF Psychiatric History: Anxiety, Depression SKIVER UPPERS OR LININGS History: No pertinent SKIVER UPPERS OR LININGS history Lives: Alone Smoking Status: Never smoker [...] Preston wraps on the patient, she has yety-zbh-zddgwnd compression stockings at home which she wears Code Visit OBSV E AND M: [id number] Initial observation care 09/09/181946 <Electronically signed by Rommel Hansen DO> Date Rommel Hansen DO Cosigner Signature: Date (if applicable) CC: oRmmel Hansen DO; Jose L Valenzuela MD Signed EMERGENCY DEPARTMENT Observed: 09/09/2018 Status: F Source: [place] SUMMARY 2:06 PM [facility] REPOSITORY [facility] Medical Records Department [address] [place] [address] Emergency Department Summary 09/09/18 1404 MR#: [id number] Acct: [id number] Name: VEE HYATT Rep #: [id number] : 1940 77 From: Kai Noble MD [...] UTI, delirium This note was generated with [employer] dictation software. It may contain incorrect words, [...] your Primary Care Provider. Call [facility] ([phone]) or report to the closest Emergency Room. Call 911 if necessary. 09/09/18 1406 <Electronically signed by Kai Noble MD> Date Kai Noble MD Cosigner Signature (If Indicated): Date CC: Jose L Valenzuela MD URINALYSIS, COMPLETE Collected: 09/09/2018 Status: F Source: [place] 12:00 PM [facility] REPOSITORY Order Comment: Order Date: 09/09/18 How was Urine Obtained? 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, [address] Observed: 09/09/2018 Status: F Source: [place] CULTURE, URINE 12:00 PM [facility] REPOSITORY Order Date: 09/09/18 Urine Culture Culture exhibits no growth. Performed By: #### M100.0650 #### [facility] [address] [facility] [place], [address] CBC W/DIFF, AUTOMATED Collected: 09/09/2018 Status: F Source: [place] 11:45 AM [facility] REPOSITORY TYPE CODE TESTS RESULT OUT OF [...] Lymph 0.69 Performed By: #### L100.0100 #### [facility] [address] [facility] [place], [place], [address] PROTHROMBIN TIME W/INR Collected: 09/09/2018 Status: F Source: [place] 11:45 AM [facility] REPOSITORY TYPE CODE TESTS RESULT OUT OF RANGE REFERENCE UNITS LAB L300.4150 11.7-14.9 SECONDS Normal PROTIME 14.0 LAB L300.4200 Normal INR 1.1 Performed By: #### L300.3900, L300.4310 #### [facility] [address] [facility] [place], [place], [address] PARTIAL THROMBOPLAST Collected: 09/09/2018 Status: F Source: [place] 11:45 AM [facility] REPOSITORY TYPE CODE TESTS RESULT OUT OF RANGE REFERENCE UNITS LAB L300.4310 24.1-36.2 Seconds Normal PTT 26.3 Performed By: #### L300.3900, L300.4310 #### [facility] [address] [facility] [place], [place], [address] COMPREHENSIVE METABOLIC Collected: 09/09/2018 Status: F Source: [place] PROFIL 11:45 AM [facility] REPOSITORY TYPE CODE TESTS RESULT OUT OF [...] GAP 7 Performed By: #### L500.4050 #### [facility] [address] [place], [address] LACTIC ACID Collected: 09/09/2018 Status: F Source: [place] 11:45 AM [facility] REPOSITORY Order Comment: Yes/No query for Sepsis Lactate Rule Y TYPE CODE TESTS RESULT OUT OF RANGE REFERENCE UNITS LAB L503.6005 0.4-2.0 mmol/L Normal LACTIC ACID 0.9 Performed By: #### L503.6005 #### [facility] [address] [place], [address] Observed: 09/09/2018 Status: F Source: [place] CULTURE, BLOOD (WB) 11:45 AM [facility] REPOSITORY BC No growth in 5 days. Performed By: #### M200.1000 #### [facility] [address] [place], [address] Observed: 09/09/2018 Status: F Source: [place] CULTURE, BLOOD (WB) 11:30 AM [facility] REPOSITORY BC No growth in 5 days. Performed By: #### M200.1000 #### [facility] [address] [place], [place], [address] CHEST 1 VIEW Observed: 09/09/2018 Status: F Source: [place] (PORTABLE) 11:25 AM [facility] REPOSITORY [facility] Imaging Services [address] [place] [address] Chest 1 View (Portable) MR#: [id number] Acct: [id number] Name: VEE HYATT Rep #: [id number] : 1940 F 77 From: Mendoza Ramirez MD PCP: Jose L Valenzuela MD Status: PRE ER Study: Chest 1 View (Portable) Date of Exam: 09/09/18 Exam# [id number] Ordering Dr: Kai Noble MD STUDY: X-RAY [...] Kai Noble MD; Jose L Valenzuela MD Energy Administrator: Signed VENOUS DUPLEX LOWER Observed: 09/09/2018 Status: F Source: [place] EXTREMITY 6:02 AM [facility] REPOSITORY [facility] Cardiovascular Services [address] [place] [address] Venous Duplex US, Unilateral 09/07/18 1133 MR#: [id number] Acct: [id number] Name: VEE HYATT Rep #: [id number] : 1940 77 From: Paola Lambert MD Attending Dr: Status: DEP ER [...] By: Yi Khanna RVT 09/09/18 0602 Date Paola Lambert MD CC: Jose L Valenzuela MD; Shelley Sy DO Date Dictated: 09/07/18 1133 Date Transcribed: 09/09/18 0602 Energy Administrator: Signed DISCHARGE INSTRUCTION Observed: 09/07/2018 Status: F Source: [place] 11:49 AM [facility] REPOSITORY [facility] Medical Records Department [address] [place] [address] Discharge Instruction 09/07/18 1147 MR#: [id number] Acct: [id number] Name: VEE HYATT Rep #: [id number] : 1940 77 From: Shelley Sy DO PCP: Jose L Valenzuela MD Status: REG ER ED Disposition - Plan for ED Patient: Chief Complaint: Complaint Instructions: ED UTI Cystitis Female Prescriptions: Hydrocodone Bitart/Apap 5-325 [[place] 5MG-325MG] 1 tab PO Q4H PRN PRN [...] your Primary Care Provider. Call [facility] ([phone]) or report to the closest Emergency Room. Call 911 if necessary. 09/07/18 1149 <Electronically signed by Shelley Sy DO> Date Shelley Sy DO Cosigner Signature (If Indicated): Date ___ CC: Jose L Valenzuela MD EMERGENCY DEPARTMENT Observed: 09/07/2018 Status: F Source: [place] SUMMARY 11:47 AM [facility] REPOSITORY [facility] Medical Records Department [address] [place] [address] Emergency Department Summary 09/07/18 1144 MR#: [id number] Acct: [id number] Name: VEE HYATT Rep #: [id number] : 1940 77 From: Shelley Sy DO [...] for Bactrim as well as Pyridium and [place] for severe pain.] Disposition: [Discharged home in stable condition] Impression: [Urinary tract infection Leg edema] This note was generated with [employer] dictation software. It may contain incorrect words, [...] your Primary Care Provider. Call [facility] ([phone]) or report to the closest Emergency Room. Call 911 if necessary. 09/07/18 1147 <Electronically signed by Shelley Sy DO> Date Shelley Sy DO Cosigner Signature (If Indicated): Date CC: Jose L Valenzuela MD URINALYSIS, COMPLETE Collected: 09/07/2018 Status: F Source: [place] 10:15 AM [facility] REPOSITORY Order Comment: Order Date: 09/07/18 COLOR [...] URINE SEEN Performed By: #### L400.0001 #### [facility] [place], [address] Observed: 09/07/2018 Status: F Source: [place] CULTURE, URINE 10:15 AM [facility] REPOSITORY Order Date: 09/07/18 Has pt arrived? Y Urine Culture ORGANISM 1: Citrobacter koseri [place] Count >100,000 Citrobacter koseri: REACTION Amoxacillin/Clavulanic Acid $ 8 S Cefazolin $ <=4 S Cefepime $ <=1 S Ceftriaxone $ <=1 S Ciprofloxacin $ <=0.25 S Ertapenim $$$ <=0.5 S Gentamicin $ <=1 S Imipenem *NF <=0.25 S Levofloxacin $ <=0.12 S Nitrofurantoin $ 32 S Tobramycin $ <=1 S Trimethoprim/Sulfametho $ <=20 S (NF) indicates non-formulary drug at [facility]. Approval by Infectious Disease Specialist required before non-formulary drugs may be ordered and/or dispensed. Performed By: #### M100.0650 #### [facility] [address] [place], [address] CBC W/DIFF, AUTOMATED Collected: 09/07/2018 Status: F Source: [place] 9:33 AM [facility] REPOSITORY TYPE CODE TESTS RESULT OUT OF [...] Lymph 1.06 Performed By: #### L100.0100 #### [facility] [address] [place], [address] BASIC METABOLIC Collected: 09/07/2018 Status: F Source: [place] PROFILE (BMP) 9:33 AM [facility] REPOSITORY TYPE CODE TESTS RESULT OUT OF [...] GAP 9 Performed By: #### L500.2500 #### [facility] [address] [place], [address] BASIC METABOLIC Collected: 05/01/2018 Status: F Source: [place] PROFILE (BMP) 2:07 PM [facility] REPOSITORY TYPE CODE TESTS RESULT OUT OF [...] GAP 5 Performed By: #### L500.2500 #### [facility] [address] [place], [address] BASIC METABOLIC Collected: 01/24/2018 Status: F Source: [place] PROFILE ([facility]) 3:50 PM [facility] REPOSITORY TYPE CODE TESTS RESULT OUT OF [...] GAP 5 Performed By: #### L500.2500 #### [facility] [address] 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 50 #2 45 #3 40 [...] Parrish MD SIGNATURE: Kevin Parrish MD PAGER: [phone] DATE of SERVICE: 01/01/2018 TIME of SERVICE: 2:14 PM CNOV Observed: 01/01/2018 Status: COMPLETED Source: [place] 1:20 PM [facility] REPOSITORY Office Visit (JUSTO) VEE HYATT ([id number]) 1940 F Date Time Provider Department 01/01/18 1:20 PM CASSANDRA JIMENEZ During your visit today, we recorded the following information about you: Temperature Pulse Blood pressure Weight 99 degrees 103/minute 150/77 77.7 kg Height 1.626 m Kevin Parrish MD 01/01/2018 4:55 PM Signed [facility] OUTPATIENT CONSULT NOTE Vee Hyatt [id number] Requesting Provider: Krystal Bar Thoracic Physician: Cassandra [...] arrangement: Lives with family/friend 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 50 #2 45 #3 40 [...] Parrish MD SIGNATURE: Kevin Parrish MD PAGER: [phone] DATE of SERVICE: 01/01/2018 TIME of SERVICE: 2:14 PM Referring Provider: JOSE L VALENZUELA [[id number]] Allergies As of Date: 01/01/2018 (No Known Allergies) Date Reviewed: 01/01/2018 Reviewed by: Estefania Acevedo - Fully Assessed Primary Visit Diagnosis:Diaphragmatic hernia without obstruction and without gangrene [K44.9] Order(s):LUNG DIFFUSION CAPACITY (DLCO) [7067149] Order #: [id number] FUTURE SIX MINUTE WALK [1942011] Order #: [id number] FUTURE SPIROMETRY WITH DILATOR IF OBSTRUCTED [5269948] Order #: [id number] FUTURE Prescriptions as of 01/01/2018 Sig: ALEVE [...] BASIC METABOLIC Collected: 12/31/2017 Status: F Source: [place] PROFILE ([facility]) 11:04 AM [facility] REPOSITORY TYPE CODE TESTS RESULT OUT OF [...] GAP 4 Performed By: #### L500.2500 #### [facility] [address] [place], [address] HOME HEALTH PROGRESS Observed: 11/13/2017 Status: F Source: [place] NOTE 6:03 PM [facility] REPOSITORY [facility] Medical Records Department [address] [place] [address] Home Health Progress Note Obpe-ee-Rqcr Encounter Encounter Date: 11/13/17856 MR#: [id number] Acct: [id number] Name: VEE HYATT Rep #: [id number] : 1940 77 From: Perez Moseley MD PCP: Jose L Valenzuela MD Status: ADM IN Location: [place] [address] ADDENDUM by Perez Moseley MD on 11/13/17 [...] DISCHARGE SUMMARY Observed: 11/13/2017 Status: F Source: [place] 8:57 AM [facility] REPOSITORY [facility] Medical Records Department [address] [place] [address] Discharge Summary 11/13/17 0851 MR#: [id number] Acct: [id number] Name: EDMARVEE Maggy Rep #: [id number] : 1940 77 From: Perez Moseley MD PCP: Jose L Valenzuela MD Status: ADM IN Location: [place] [address] Discharge Date and Diagnosis Date of Admission: [...] fixation (Chronic) left femur 06/22, Dr Spears, [facility] Tinea unguium (Chronic) Dyskinesia, tardive (Chronic) Takatsuki [...] Fan Benavidez MD at 11:17 EST Tel [phone], Service support , Operations: None Procedures: None [...] Please Follow Up With: Dr. Bar When: [phone] Disposition: Home with Home Health Minutes spent on discharge:: 35 Patient Condition:: Stable Meaningful Use Info Meaningful Use Diagnoses (Choose all that apply): None applicable 11/13/17 0857 <Electronically signed by Perez Moseley MD> Date Perez Moseley MD Cosigner Signature (if applicable): Date CC: Jose L Valenzuela MD; Perez Moseley MD Signed DISCHARGE INSTRUCTION Observed: 11/13/2017 Status: F Source: [place] 8:51 AM [facility] REPOSITORY [facility] Medical Records Department [address] [place] [address] Instructions for Home/Discharge Instructions 11/13/17 0850 MR#: [id number] Acct: [id number] Name: VEE HYATT Rep #: [id number] : 1940 77 From: Perez Moseley MD [...] Please Follow Up With: Dr. Bar When: [phone] Proposed Discharge Date: 11/17/17 11/13/17850 <Electronically signed by Perez Moseley MD> Date Perez Moseley MD CC: Jose L Valenzuela MD BASIC METABOLIC Collected: 11/11/2017 Status: F Source: [place] PROFILE (BMP) 6:08 AM [facility] REPOSITORY TYPE CODE TESTS RESULT OUT OF [...] GAP 5 Performed By: #### L500.2500 #### [facility] [address] [place], [address] CBC W/DIFF, AUTOMATED Collected: 11/11/2017 Status: F Source: [place] 6:08 AM [facility] REPOSITORY TYPE CODE TESTS RESULT OUT OF [...] Lymph 1.32 Performed By: #### L100.0100 #### [facility] [address] [place], [address] BEDSIDE GLUCOSE Collected: 11/07/2017 Status: F Source: [place] 6:26 AM [facility] REPOSITORY TYPE CODE TESTS RESULT OUT OF REFERENCE UNITS RANGE LAB L501.080 70-110 mg/dL High BEDSIDE GLU 113 Result Comment: MANAGEMENT OF PATIENT CARE PER NURSING PROTOCOL Performed By: #### L501.080 #### [facility] Point of Care [address] [facility] [place] [address] 12 LEAD ELECTROCARDIOGRAM Observed: 11/06/2017 Status: F Source: [place] 1:01 PM [facility] REPOSITORY [facility] Cardiovascular Services [address] [place] [address] 12 Lead EKG 11/04/17 0024 MR#: [id number] Acct: [id number] Name: VEE HYATT Rep #: [id number] : 1940 77 From: Orville Dumont MD [...] ECG Confirmed by ORVILLE DUMONT MD ([id number]), newspaper editor managing KELLEN SUAREZ ([id number]) on 11/06/2017 1:00:56 PM Referred By: SL Confirmed By:ORVILLE DUMONT MD 11/06/17 1301 Date Orville Dumont MD CC: Jose L Valenzuela MD; Dilip Okeefe MD Signed BEDSIDE GLUCOSE Collected: 11/06/2017 Status: F Source: [place] 6:35 AM [facility] REPOSITORY TYPE CODE TESTS RESULT OUT OF RANGE REFERENCE UNITS LAB L501.080 70-110 mg/dL Normal BEDSIDE GLU 103 Result Comment: MANAGEMENT OF PATIENT CARE PER NURSING PROTOCOL Performed By: #### L501.080 #### [facility] Point of Care [address] [place] [address] KIDNEY AND BLADDER Observed: 11/05/2017 Status: F Source: [place] 9:26 AM [facility] REPOSITORY [facility] Imaging Services [address] [place] [address] Kidney and Bladder MR#: [id number] Acct: [id number] Name: VEE HYATT Rep #: [id number] : 1940 F 77 From: Fan Benavidez MD PCP: Jose L Valenzuela MD Status: ADM IN Study: Kidney and Bladder Date of Exam: 11/05/17 Exam# [id number] Ordering Dr: Perez Moseley MD STUDY: RENAL [...] Fan Benavidez MD at 11:17 EST Tel [phone], Service support , CC: Jose L Valenzuela MD; Perez Moseley MD Energy Administrator: Signed HISTORY AND PHYSICAL Observed: 11/05/2017 Status: F Source: [place] EXAM 8:42 AM [facility] REPOSITORY [facility] Medical Records Department [address] [place] [address] History and Physical 11/03/172018 MR#: [id number] Acct: [id number] Name: VEE HYATT Rep #: [id number] : 1940 77 From: Perez Moseley MD PCP: Jose L Valenzuela MD Status: ADM IN Y Location: [facility] TCU05-1 Problem List (1) Diaphragmatic hernia Status: [...] with below past medical history presented to [facility] Emergency Department 10/26/2017 with abdominal pain. 10/25/2017 [...] for renal cell carcinoma. 10/26/2017 Transfer to [facility] for further evaluation of diaphragmatic hernia with strangulation and gangrene. At [facility], patient thought too high risk for surgery. Patient was treated supportively. 11/03/2017 Admit to TCU for rehabilitation, strengthening, prior to discharge home alone. 11/04/2017 Resident became increasingly short of breath, respiratory therapy recommended BIPAP. Resident was sent to [facility] Emergency Department for evaluation, no acute findings noted. I had phone conversation with Dr. Okeefe, resident's son states Dr. Bar at [facility] able and willing to perform diaphragmatic hernia repair, but resident needs to get stronger. Surgeons at [facility] thought resident was too high risk to [...] fixation (Chronic) left femur 06/22, Dr Spears, [facility] Tinea unguium (Chronic) Dyskinesia, tardive (Chronic) Takatsuki [...] left hip CRIF Psychiatric History: Anxiety, Depression SKIVER UPPERS OR LININGS History: No pertinent SKIVER UPPERS OR LININGS history Lives: Alone Smoking Status: Never smoker [...] BEDSIDE GLUCOSE Collected: 11/05/2017 Status: F Source: [place] 6:26 AM [facility] REPOSITORY TYPE CODE TESTS RESULT OUT OF REFERENCE UNITS RANGE LAB L501.080 70-110 mg/dL High BEDSIDE GLU 124 Result Comment: MANAGEMENT OF PATIENT CARE PER NURSING PROTOCOL Performed By: #### L501.080 #### [facility] Point of Care [address] [facility] [place] [address] EMERGENCY DEPARTMENT Observed: 11/05/2017 Status: F Source: [place] SUMMARY 1:11 AM [facility] REPOSITORY [facility] Medical Records Department [address] [place] [address] Emergency Department Summary 11/04/17 0254 MR#: [id number] Acct: [id number] Name: VEE HYATT Rep #: [id number] : 1940 77 From: Dilip Okeefe MD PCP: Jose L Valenzuela MD Status: DEP ER - ER Visit Summary Date of Service: 11/04/17 Chief Complaint: Shortness of breath History of Present Illness: The patient is a [address] Dumont and Dr. Jose L Ash. She reports that she was sent to [facility] October 26 to have repair of a diaphragmatic hernia. States that she was seen by general surgeons there and they felt that this was too high risk. She was sent to the TCU today. Patient reports that she has had shortness of breath is been present for the entire time. In fact, she reports that she called 911 from the [facility] because she was so short of breath. [...] Son who is the medical power of ip technology transactions attorney reports that he wants patient to have the surgery at [facility]. I have offered to transfer to [facility] today. He would like her to go [...] diaphragmatic hernia. This note was generated with [employer] dictation software. It may contain incorrect words, [...] your Primary Care Provider. Call [facility] ([phone]) or report to the closest Emergency Room. Call 911 if necessary. 11/05/17 0111 <Electronically signed by Dilip Okeefe MD> Date Dilip Okeefe MD Cosigner Signature (If Indicated): Date CC: Jose L Valenzuela MD -KIDNEY AND BLADDER Observed: 11/05/2017 Status: F Source: [facility] 12:00 AM [facility] REPOSITORY Images were obtained outside of [facility] [id number] CHEST PA AND LATERAL Observed: 11/04/2017 Status: F Source: [place] 6:59 PM [facility] REPOSITORY [facility] Imaging Services [address] [place] [address] Chest PA and Lateral MR#: [id number] Acct: [id number] Name: VEE HYATT Rep #: [id number] : 1940 F 77 From: Kellen Kelly MD PCP: Jose L Valenzuela MD Status: ADM IN Study: Chest PA and Lateral Date of Exam: 11/04/17 Exam# [id number] Ordering Dr: Perez Moseley MD XR Chest [...] Jose L Valenzuela MD; Perez Moseley MD Energy Administrator: Signed CBC W/DIFF, AUTOMATED Collected: 11/04/2017 Status: F Source: [place] 5:30 AM [facility] REPOSITORY TYPE CODE TESTS RESULT OUT OF [...] Lymph 1.44 Performed By: #### L100.0100 #### [facility] [address] [facility]. [place], [place], [address] CBC W/DIFF, AUTOMATED Collected: 11/04/2017 Status: F Source: [place] 1:16 AM [facility] REPOSITORY TYPE CODE TESTS RESULT OUT OF [...] Lymph 2.08 Performed By: #### L100.0100 #### [facility] [address] [place], [address] BASIC METABOLIC Collected: 11/04/2017 Status: F Source: [place] PROFILE ([facility]) 1:16 AM [facility] REPOSITORY Order Comment: 'TROP' Serial specimen #1, [...] GAP Performed By: #### L500.2500, L501.4010 #### [facility] [address] [place], [address] TROPONIN-I Collected: 11/04/2017 Status: F Source: [place] 1:16 AM [facility] REPOSITORY Order Comment: 'TROP' Serial specimen #1, #2, #3, or #4: 1 TYPE CODE TESTS RESULT OUT OF RANGE REFERENCE UNITS LAB L501.4010 <0.06 ng/mL Normal < 0.02 TROPONIN-I Result Comment: TROPONIN-I EXPECTED VALUES <0.05 NEGATIVE 0.06 - 0.59 AT RISK OF CO > OR = 0.60 SUGGEST CO Performed By: #### L500.2500, L501.4010 #### [facility] [address] [place], [address] CHEST 1 VIEW Observed: 11/04/2017 Status: F Source: [place] (PORTABLE) 12:11 AM [facility] REPOSITORY [facility] Imaging Services [address] [place] [address] Chest 1 View (Portable) MR#: [id number] Acct: [id number] Name: VEE HYATT Rep #: [id number] : 1940 F 77 From: Francisco Javier Alexander PCP: Jose L Valenzuela MD Status: REG ER Study: Chest 1 View (Portable) Date of Exam: 11/04/17 Exam# [id number] Ordering Dr: Dilip Okeefe MD STUDY: X-RAY [...] Jose L Valenzuela MD; Dilip Okeefe MD Energy Administrator: Signed CR-CHEST PA AND Observed: 11/04/2017 Status: F Source: [facility] 12:00 AM [facility] REPOSITORY Images were obtained outside of [facility] [id number] GLUCOSE METER Collected: 11/03/2017 Status: F Source: [facility] 5:04 PM [facility]ALTH SYSTEM REPOSITORY TYPE CODE TESTS RESULT OUT OF REFERENCE UNITS RANGE LAB GLUBL(LOINC 70-99 mg/dL ) High Glucose Meter 118 Result Comment: RN NOTIFIED Performed By: #### GLMET #### [place] [address] CASE MANAGEM Observed: 11/03/2017 Status: COMPLETED Source: [place] 2:58 PM [facility] REPOSITORY HNO ID: [id number] Author: Chiquita (Specialist) Glo Service: (none) Author Type: (none) Type: Care Mgt Progress Note Filed: 11/03/2017 3:00 PM Note Text: Patient will be picked up by [facility] at 5:30pm going to [facility]. I notified adrian Motta at [phone]. CASE MANAGEM Observed: 11/03/2017 Status: COMPLETED Source: [place] 2:45 PM [facility] REPOSITORY HNO ID: [id number] Author: Carlene (Rn) PRACHI De La [place]ega Service: Care Management Author Type: Registered Nurse Type: Care Mgt Progress Note Filed: 11/03/2017 2:48 PM Note Text: CARE MANAGEMENT DISCHARGE NOTE SERVICE DATE: 11/03/2017 SERVICE TIME: 2:45 PM LOS: 8 days Admission Date: 10/26/2017 DISCHARGE ARRANGEMENT (list agency and phone number) halfway facility Provider: [facility] HANDOFF COMMUNICATION: RN-to-RN Report TRANSPORTATION ARRANGEMENTS: Ambulance: Transport Agency and Phone: [facility] ambulance ( [facility] ) [phone] / [phone]. Discussion of financial coverage occurred with Kalia kessler. Patient will discharge to [facility] at 1730 via cot. Kalia Kessler, aware of possible OOP costs. He was notified of discharge time via our Records Management Technician. ADDITIONAL CONTACT RESOURCES: Please call report to [phone]. Needs Prior to Discharge: Ready for Discharge Await transport at 1730. SIGNATURE: Carlene De La Vega RN PATIENT NAME: Vee Hyatt DATE: November 03, 2017 TIME: 2:45 PM PAGER/CONTACT #: [phone] CNDS Observed: 11/03/2017 Status: COMPLETED Source: [place] 2:27 PM [facility] REPOSITORY HNO ID: [id number] Author: Paola Villatoro Service: Trauma Author Type: Physician Type: [...] No pending results Discharge Disposition Discharge Disposition: Long Term Facility - Less than 30 Days Activity When You Leave the Hospital May bathe and shower No walking restrictions Resume pre-hospital activity Diet Instructions Resume your pre-hospital diet For Pain When You Leave the Hospital If you become constipated, you may use any ellx-ynp-iyhblsy treatment such as Milk of Magnesia, Sennakot, Prune Juice, Suppositories, etc. in addition to the stool softener/fiber supplement No alcohol or driving while on pain medication Use ibuprofen (Motrin, Advil) as recommended on the bottle Use the dispensed medication (see prescription) You should use an gfmm-bht-tjuzwce stool softener (Docusate sodium) and/or a fiber supplement (Metamucil, Fiber Con) every day while taking prescribed pain medication Call Your Doctor If You have persistent nausea/vomiting over 24 hours You have swollen glands or cold and clammy skin Follow Up Appointments Follow-Up Appointment With: PCP When: In 2 weeks FOLLOW-UP APPOINTMENTS ALREADY SCHEDULED WITH A [facility] PROVIDER: No future appointments. DISCHARGE MEDICATION: Current [...] this patient. SIGNATURE: SHAWN Velez PAGER/CONTACT #: [phone] DATE: November 03, 2017 TIME: 2:28 PM GLUCOSE METER Collected: 11/03/2017 Status: F Source: [facility] 11:39 AM [facility] SYSTEM REPOSITORY TYPE CODE TESTS RESULT OUT OF REFERENCE UNITS RANGE LAB GLUBL(LOINC 70-99 mg/dL ) High Glucose Meter 124 Result Comment: RN NOTIFIED Performed By: #### GLMET #### [place] [address] CHEST 1 VIEW Observed: 11/03/2017 Status: F Source: [facility] 11:28 AM HEALTH SYSTEM REPOSITORY Performed at [facility] APPROVED BY: Ulises Fajardo MD EXAM TITLE: CHEST 1 VIEW DATE: 11/03/2017 11:23 COMPARISON: 11/01/2017 CLINICAL INDICATION/HISTORY: Respiratory distress TECHNIQUE: AP upright portable chest FINDINGS: No significant interval change. Bilateral pleural effusion again noted, dsumq-xn-ujhnjavh on the left and moderate on the right with presumed adjacent compressive atelectasis. Cardiac size is within normal limits and unchanged. There is decreased bone density. IMPRESSION: No change. CASE MANAGEM Observed: 11/03/2017 Status: COMPLETED Source: [place] 8:49 AM [facility] REPOSITORY HNO ID: [id number] Author: Carlene (Rn) PRACHI De La Vega [...] to Discharge: Ready for Discharge Epic reviewed. [facility] if patient is medically stable for discharge. Paged #[phone] to request discharge orders. Please call [phone] if intending to discharge this patient. Will continue to follow clinical progress for discharge needs. SIGNATURE: Carlene De La Vega RN PATIENT NAME: Vee Hyatt DATE: November 03, 2017 TIME: 8:50 AM PAGER/CONTACT #: [phone] GLUCOSE METER Collected: 11/03/2017 Status: F Source: [facility] 7:02 AM HEALTH SYSTEM REPOSITORY TYPE CODE TESTS RESULT OUT OF REFERENCE UNITS RANGE LAB GLUBL(LOINC 70-99 mg/dL ) High Glucose Meter 108 Result Comment: RN NOTIFIED Performed By: #### GLMET #### [place] [address] PROGRESS Observed: 11/03/2017 Status: COMPLETED Source: [place] 6:17 AM [facility] REPOSITORY HNO ID: [id number] Author: Diane De Los Santos Service: General [...] 11/03/17 0659 11/03/17699 - 11/04/17 0659 Shift 6157-7370 2290-9793 4703-8032 24 Hour Total 0299-1576 9427-4027 4739-6394 24 Hour Total I N T A [...] GLUCOSE METER Collected: 11/02/2017 Status: F Source: [facility] 9:11 PM HEALTH SYSTEM REPOSITORY TYPE CODE TESTS RESULT OUT OF REFERENCE UNITS RANGE LAB GLUBL(LOINC 70-99 mg/dL ) High Glucose Meter 130 Result Comment: RN NOTIFIED Performed By: #### GLMET #### [place] [address] NURSING PROG Observed: 11/02/2017 Status: COMPLETED Source: [place] 8:47 PM [facility] REPOSITORY HNO ID: [id number] Author: Natalie Ngo) PRACHI Pope Service: Nursing Author Type: Registered Nurse Type: Nursing Progress Note Filed: 11/02/2017 9:00 PM Note Text: Nursing Progress Note Patient Name: Vee Hyatt Patient Location: [place] [id number]-* Event(s) / Intervention Note: The patient complained [...] GLUCOSE METER Collected: 11/02/2017 Status: F Source: [facility] 4:51 PM HEALTH SYSTEM REPOSITORY TYPE CODE TESTS RESULT OUT OF REFERENCE UNITS RANGE LAB GLUBL(LOINC 70-99 mg/dL ) High Glucose Meter 124 Result Comment: RN NOTIFIED Performed By: #### GLMET #### [facility] [address] [place] [address] NUTRITION Observed: 11/02/2017 Status: COMPLETED Source: [place] 3:58 PM [facility] REPOSITORY HNO ID: [id number] Author: Natividad Rivera RD Service: Nutrition Therapy [...] SIGNATURE: Natividad Rivera RD PATIENT NAME: Vee Escuderoe DATE: November 02, 2017 TIME: 3:59 PM PAGER: [phone] CASE MANAGEM Observed: 11/02/2017 Status: COMPLETED Source: [place] 2:18 PM [facility] REPOSITORY HNO ID: [id number] Author: Roro (Rn) PRACHI Schwartz Service: Care Management Author Type: Registered Nurse Type: Care Mgt Progress Note Filed: 11/02/2017 2:22 PM Note Text: CARE MANAGEMENT PROGRESS NOTE SERVICE DATE: 11/02/2017 SERVICE TIME: 1417 LOS: 7 days Needs Prior to Discharge: Bed Availability Precert [facility] Per Sima Gonsalves, Admissions--will have bed available for patient on Sunday (11/03). Will need transport via cot per family request--son notified of potential for copay/taz-pz-xdmxfs costs. Await discharge orders when medically stable. SIGNATURE: Roro Schwartz RN PATIENT NAME: Vee Escuderoe DATE: November 02, 2017 TIME: 2:18 PM PAGER/CONTACT #: [phone] GLUCOSE METER Collected: 11/02/2017 Status: F Source: [facility] 11:46 AM HEALTH SYSTEM REPOSITORY TYPE CODE TESTS RESULT OUT OF REFERENCE UNITS RANGE LAB GLUBL(LOINC 70-99 mg/dL ) High Glucose Meter 122 Result Comment: RN NOTIFIED Performed By: #### GLMET #### [facility] [address] [place], [place] [address] THERAPY NT Observed: 11/02/2017 Status: COMPLETED Source: [place] 10:04 AM [facility] REPOSITORY HNO ID: [id number] Author: Faye LiraOtr/Wilfred Covarrubias OT Service: Occupational Therapy Author Type: Occupational Therapist Type: Therapy (PT/OT/Speech/Resp) Filed: 11/02/2017 10:14 AM Note Text: Occupational Therapy Evaluation SERVICE DATE: 11/02/2017 SERVICE TIME: 914 to 953 ROOM: [id number] Recommended Discharge Disposition: Subacute/SNF Justification For Post [...] Weakness (generalized);Unsteadiness on feet Interventions Provided: Evaluation;Self Group Home Management (25823) $ Evaluation-Moderate (43686) Billed Units: 1 unit Self Group Home Management (90926) Treatment Minutes: 24 2 units Skilled Intervention(s) [...] who presents as a direct admit from [facility] for right-sided diaphragmatic hernia. Pt states [...] Environment Patient Lives With: Self/Alone Assistance Available: motion and time study teacher (Son visits daily per patient) Entry To [...] November 02, 2017 TIME: 10:04 AM PAGER: [phone] PROGRESS Observed: 11/02/2017 Status: COMPLETED Source: [place] 9:11 AM [facility] REPOSITORY O ID: [id number] Author: Diane De Los Santos Service: General [...] 11/02/1759 11/02/17 07 - 11/03/17 0659 Shift 2948-5723 5345-3542 1942-2635 24 Hour Total 7041-9282 8838-3977 5184-1788 24 Hour Total I N T A K E PO 240 640 880 PO 240 640 880 IV 550 550 D5 NS 500 500 Potassium IVPB 50 50 Shift Total 970 939 8560 O U T P U T Urine 750 368 567 9122 Void (ml) 750 274 882 6366 Urine Incontinence/Not Saved 1 x 1 x 2 x # of BMs Number of BMs 1 x 1 x 2 x Shift Total 750 503 515 8490 Weight (kg) 77.1 77.1 77.1 77.1 77.1 [...] November 02, 2017 TIME: 9:11 AM Pager: [phone] ========= SURGERY STAFF: I have personally seen [...] CASE MANAGEM Observed: 11/02/2017 Status: COMPLETED Source: [place] 8:33 AM [facility] REPOSITORY HNO ID: [id number] Author: Roro LiraRn) PRACHI Schwatrz Service: Care Management Author Type: Registered Nurse Type: Care Mgt Progress Note Filed: 11/02/2017 8:34 AM Note Text: CARE MANAGEMENT PROGRESS NOTE SERVICE DATE: 11/02/2017 SERVICE TIME: 832 LOS: 7 days Needs Prior to Discharge: Insurance Authorization Awaiting precert for [facility]. SIGNATURE: Roro Schwartz RN PATIENT NAME: Vee Hyatt DATE: November 02, 2017 TIME: 8:33 AM PAGER/CONTACT #: [phone] GLUCOSE METER Collected: 11/02/2017 Status: F Source: [facility] 6:47 AM HEALTH SYSTEM REPOSITORY TYPE CODE TESTS RESULT OUT OF REFERENCE UNITS RANGE LAB GLUBL(LOINC 70-99 mg/dL ) High Glucose Meter 109 Result Comment: RN NOTIFIED Performed By: #### GLMET #### [place] [address] NURSING PROG Observed: 11/02/2017 Status: COMPLETED Source: [place] 1:45 AM [facility] REPOSITORY HNO ID: [id number] Author: Natalie LiraRn) PRACHI Pope Service: Nursing Author Type: Registered Nurse Type: Nursing Progress Note Filed: 11/02/2017 2:48 AM Note Text: Nursing Progress Note Patient Name: Vee Hyatt Patient Location: [place] [id number]-* Event(s) / Intervention Note: The patient complained [...] GLUCOSE METER Collected: 11/01/2017 Status: F Source: [facility] 8:45 PM HEALTH SYSTEM REPOSITORY TYPE CODE TESTS RESULT OUT OF REFERENCE UNITS RANGE LAB GLUBL(LOINC 70-99 mg/dL ) High Glucose Meter 117 Result Comment: RN NOTIFIED Performed By: #### GLMET #### [place] [address] GLUCOSE METER Collected: 11/01/2017 Status: F Source: [facility] 5:10 PM HEALTH SYSTEM REPOSITORY TYPE CODE TESTS RESULT OUT OF REFERENCE UNITS RANGE LAB GLUBL(LOINC 70-99 mg/dL ) High Glucose Meter 149 Result Comment: RN NOTIFIED Performed By: #### GLMET #### [place] [address] POTASSIUM BLOOD Collected: 11/01/2017 Status: F Source: [facility] 2:20 PM HEALTH SYSTEM REPOSITORY TYPE CODE TESTS RESULT OUT OF REFERENCE UNITS RANGE LAB K(LOINC) 3.5-5.1 mEq/L Low Potassium Blood 3.4 Performed By: #### K #### [place] [address] CASE MANAGEM Observed: 11/01/2017 Status: COMPLETED Source: [place] 12:03 PM [facility] REPOSITORY HNO ID: [id number] Author: Roro (Rn) PRACHI Schwartz Service: Care Management Author Type: Registered Nurse Type: Care Mgt Progress Note Filed: 11/01/2017 12:05 PM Note Text: CARE MANAGEMENT PROGRESS NOTE SERVICE DATE: 11/01/2017 SERVICE TIME: 1203 LOS: 6 days Needs Prior to Discharge: Insurance Authorization Spoke with Sima [facility] Admissions--patient accepted and precert started. Await precert. SIGNATURE: Roro Schwartz RN PATIENT NAME: Vee Hyatt DATE: November 01, 2017 TIME: 12:03 PM PAGER/CONTACT #: [phone] GLUCOSE METER Collected: 11/01/2017 Status: F Source: [facility] 11:09 AM HEALTH SYSTEM REPOSITORY TYPE CODE TESTS RESULT OUT OF REFERENCE UNITS RANGE LAB GLUBL(LOINC 70-99 mg/dL ) High Glucose Meter 112 Result Comment: RN NOTIFIED Performed By: #### GLMET #### [place] [address] CASE MANAGEM Observed: 11/01/2017 Status: COMPLETED Source: [place] 8:30 AM [facility] REPOSITORY HNO ID: [id number] Author: Roro (Rn) PRACHI Schwartz Service: Care Management Author Type: Registered Nurse Type: Care Mgt Progress Note Filed: 11/01/2017 8:31 AM Note Text: CARE MANAGEMENT PROGRESS NOTE SERVICE DATE: 11/01/2017 SERVICE TIME: 829 LOS: 6 days Needs Prior to Discharge: Accepting Facility;Insurance Authorization Awaiting acceptance to [facility]. SIGNATURE: Roro Schwartz RN PATIENT NAME: Vee Hyatt DATE: November 01, 2017 TIME: 8:30 AM PAGER/CONTACT #: [phone] PROGRESS Observed: 11/01/2017 Status: COMPLETED Source: [place] 8:14 AM [facility] REPOSITORY HNO ID: [id number] Author: Diane De Los Santos Service: General [...] 11/01/17 0659 11/01/17699 - 11/02/17 0659 Shift 6958-4732 8896-8406 2719-0535 24 Hour Total 3527-0026 7361-3740 1397-6475 24 Hour Total I N T A K E PO 300 300 PO 300 300 IV 914 914 D5 NS 914 914 Shift Total 252 648 5678 O U T P U T Urine 300 845 514 5516 Void (ml) 300 272 166 9266 Urine Incontinence/Not Saved 1 x 1 x # of BMs Number of BMs 2 x 2 x 1 x 5 x Shift Total 300 690 222 7112 Weight (kg) 77.1 77.1 77.1 77.1 77.1 [...] November 01, 2017 TIME: 8:14 AM Pager: [phone] ========= SURGERY STAFF: I have personally seen [...] 1 VIEW Observed: 11/01/2017 Status: F Source: [facility] 6:40 AM HEALTH SYSTEM REPOSITORY Performed at [facility] APPROVED BY: Damian Kimble MD [...] GLUCOSE METER Collected: 11/01/2017 Status: F Source: [facility] 6:19 AM HEALTH SYSTEM REPOSITORY TYPE CODE TESTS RESULT OUT OF REFERENCE UNITS RANGE LAB GLUBL(LOINC 70-99 mg/dL ) High Glucose Meter 113 Result Comment: RN NOTIFIED Performed By: #### GLMET #### [facility] [address] [place], [place] [address] NURSING PROG Observed: 11/01/2017 Status: COMPLETED Source: [place] 5:43 AM [facility] REPOSITORY HNO ID: [id number] Author: Bridgette Ngo) PRACHI Green Service: Nursing Author Type: Registered Nurse Type: Nursing Progress Note Filed: 11/01/2017 5:43 AM Note Text: Nursing Progress Note Patient Name: Vee Hyatt Patient Location: [place] [address]/[id number]-* phos 1.[address] Antunez notified. No new orders received. Will continue to monitor This note was completed by: Bridgette Green RN NURSING PROG Observed: 11/01/2017 Status: COMPLETED Source: [place] 3:57 AM [facility] REPOSITORY HNO ID: [id number] Author: Bridgette (Rn) PRACHI Green Service: Nursing [...] PHOSPHORUS BLOOD Collected: 11/01/2017 Status: F Source: [facility] 3:48 AM HEALTH SYSTEM REPOSITORY TYPE CODE TESTS RESULT OUT OF REFERENCE UNITS RANGE LAB PHOS(LOINC 2.5-4.9 mg/dL ) Low alert Phosphorus Blood 1.9 Performed By: #### PHOS #### [facility] [address] [place] [address] BASIC PANEL Collected: 11/01/2017 Status: F Source: [facility] 3:48 AM HEALTH SYSTEM REPOSITORY TYPE CODE [...] Gap 9 Performed By: #### P8 #### [facility] [address] [place] [address] MDRD GFR Collected: 11/01/2017 Status: F Source: [facility] 3:48 AM HEALTH SYSTEM REPOSITORY TYPE CODE TESTS RESULT OUT OF RANGE REFERENCE UNITS LAB GFRFN(LOINC >60mL/min/1.73m ) 2 eGFR >60 Result Comment: If the patient is , multiply the result by 1.210. Performed By: #### GFR #### [facility] [address] [place] [address] MAGNESIUM BLOOD Collected: 11/01/2017 Status: F Source: [facility] 3:48 AM HEALTH SYSTEM REPOSITORY TYPE CODE TESTS RESULT OUT OF REFERENCE UNITS RANGE LAB MAG(LOINC) 1.6-2.6 mg/dL Magnesium Blood 1.8 Performed By: #### MAG #### [facility] [address] [place] [address] HEMOGRAM/DIFF Collected: 11/01/2017 Status: F Source: [facility] 3:48 AM HEALTH SYSTEM REPOSITORY TYPE CODE [...] Lymph 1.43 LAB MONON(LOINC) 0.27-0.70 thou/cmm Abs. [place] 0.40 LAB EOSN(LOINC) 0.00-0.31 thou/cmm Abs. Eosin 0.07 LAB BASON(LOINC) 0.01-0.08 thou/cmm Abs. Baso 0.05 Performed By: #### CBCD1 #### [place] [address] NURSING PROG Observed: 10/31/2017 Status: COMPLETED Source: [place] 9:58 PM [facility] REPOSITORY HNO ID: [id number] Author: Bridgette (Rn) PRACHI Green Service: Nursing [...] GLUCOSE METER Collected: 10/31/2017 Status: F Source: [facility] 9:43 PM HEALTH SYSTEM REPOSITORY TYPE CODE TESTS RESULT OUT OF REFERENCE UNITS RANGE LAB GLUBL(LOINC 70-99 mg/dL ) High Glucose Meter 110 Result Comment: RN NOTIFIED Performed By: #### GLMET #### [facility] [address] [place], [place] [address] GLUCOSE METER Collected: 10/31/2017 Status: F Source: [facility] 5:06 PM HEALTH SYSTEM REPOSITORY TYPE CODE TESTS RESULT OUT OF REFERENCE UNITS RANGE LAB GLUBL(LOINC 70-99 mg/dL ) High Glucose Meter 108 Result Comment: RN NOTIFIED Performed By: #### GLMET #### [place] [address] CASE MANAGEM Observed: 10/31/2017 Status: COMPLETED Source: [place] 3:08 PM [facility] REPOSITORY HNO ID: [id number] Author: Toribio LiraRn) PRACHI Tamayo Service: Care Management Author Type: Registered Nurse Type: Care Mgt Progress Note Filed: 10/31/2017 3:14 PM Note Text: CARE MANAGEMENT PROGRESS NOTE SERVICE DATE: 10/31/2017 SERVICE TIME: 1508 LOS: 5 days Referral made to [facility] at pt and son request. Pt will need authorization prior to discharge. SIGNATURE: Toribio Tamayo RN PATIENT NAME: Vee Hyatt DATE: October 31, 2017 TIME: 3:08 PM PAGER/CONTACT #: [phone] CASE MANAGEM Observed: 10/31/2017 Status: COMPLETED Source: [place] 3:06 PM [facility] REPOSITORY HNO ID: [id number] Author: Mandy LiraRn) PRACHI Kidd Service: Care Management Author Type: Registered Nurse Type: Care Mgt Progress Note Filed: 10/31/2017 3:08 PM Note Text: CARE MANAGEMENT PROGRESS NOTE SERVICE DATE: 10/31/2017 SERVICE TIME: 3:07 PM LOS: 5 days Call to adrian Motta at [phone]. For discharge the plan is [facility] transitional care unit. Placed referral. SIGNATURE: Mandy Kidd RN PATIENT NAME: Vee Escuderoe DATE: October 31, 2017 TIME: 3:06 PM PAGER/CONTACT #: [phone] THERAPY NT Observed: 10/31/2017 Status: COMPLETED Source: [place] 2:29 PM [facility] REPOSITORY HNO ID: [id number] Author: Xiomy LiraOtr/Wilfred Moran Service: Occupational Therapy Author Type: Occupational Therapist Type: Therapy (PT/OT/Speech/Resp) Filed: 10/31/2017 2:30 PM Note Text: OCCUPATIONAL THERAPY MISSED VISIT SERVICE DATE: 10/31/2017 SERVICE TIME: 1428 to 1428 ROOM: [place] [address] Attempted Evaluation. Patient not seen due to Declined. Patient declines therapy at this time due to fatigue after getting back from bedside commode, will continue to follow as able and appropriate. SIGNATURE: Xiomy Moran OTR/L PATIENT NAME: Vee Hyatt DATE: October 31, 2017 TIME: 2:29 PM PAGER/CONTACT #: [phone] GLUCOSE METER Collected: 10/31/2017 Status: F Source: [facility] 11:26 AM HEALTH SYSTEM REPOSITORY TYPE CODE TESTS RESULT OUT OF REFERENCE UNITS RANGE LAB GLUBL(LOINC 70-99 mg/dL ) High Glucose Meter 121 Result Comment: RN NOTIFIED Performed By: #### GLMET #### [place] [address] THERAPY NT Observed: 10/31/2017 Status: COMPLETED Source: [place] 10:56 AM [facility] OTHER [facility] REPOSITORY HNO ID: [id number] Author: Danielle (Pt) LEATHA Bojorquez Service: Physical Therapy Author Type: Physical Therapist Type: Therapy (PT/OT/Speech/Resp) Filed: 10/31/2017 4:27 PM Note Text: Physical Therapy Evaluation SERVICE DATE: 10/31/2017 SERVICE TIME: 1010 to 1045 ROOM: [place] [address] Present on Admission: - Diaphragmatic hernia Recommended [...] daily living (ADL) Interventions Provided: Evaluation;Therapeutic Activity (33483);Gait Training (38944) $ Evaluation-Moderate (68682) Billed Units: 1 unit Therapeutic Activity (35343) Treatment Minutes: 10 1 unit Skilled Intervention(s): [...] functional mobility needs and continued PT at [facility]dc facility to improve independence. Gait Training (19434) Treatment Minutes: 2 0 units Skilled Intervention(s): [...] Environment Patient Lives With: Self/Alone Assistance Available: motion and time study teacher (Son visits daily per patient) Entry To [...] 31, 2017 TIME: 10:56 AM PAGER/CONTACT #: [phone] I reviewed and addended with the documentation corresponding to this therapy visit. Evaluation and/or treatment directly supervised by licensed Physical Therapist. SIGNATURE: Danielle Bojorquez PT DATE: October 31, 2017 TIME: 4:27 PM CASE MANAGEM Observed: 10/31/2017 Status: COMPLETED Source: [place] 9:33 AM [facility] OTHER [facility]AMPUS REPOSITORY O ID: [id number] Author: Roro (Rn) PRACHI Schwartz Service: Care [...] 31, 2017 TIME: 9:33 AM PAGER/CONTACT #: [phone] MAGNESIUM BLOOD Collected: 10/31/2017 Status: F Source: [facility] 8:40 AM HEALTH SYSTEM REPOSITORY TYPE CODE TESTS RESULT OUT OF REFERENCE UNITS RANGE LAB MAG(LOINC) 1.6-2.6 mg/dL Magnesium Blood 1.8 Performed By: #### MAG #### [place] [address] GLUCOSE METER Collected: 10/31/2017 Status: F Source: [facility] 6:35 AM HEALTH SYSTEM REPOSITORY TYPE CODE TESTS RESULT OUT OF REFERENCE UNITS RANGE LAB GLUBL(LOINC 70-99 mg/dL ) High Glucose Meter 118 Result Comment: RN NOTIFIED Performed By: #### GLMET #### [facility] [address] [place] [id number] PROGRESS Observed: 10/31/2017 Status: COMPLETED Source: [place] 6:14 AM [facility] OTHER [facility]AMPUS REPOSITORY HNO ID: [id number] Author: Jere Bryson Service: General Surgery Author [...] 10/31/17 0659 10/31/17699 - 11/01/17 0659 Shift 1300-4543 0526-8273 5851-8691 24 Hour Total 7311-1889 9915-7135 5125-7980 24 Hour Total I N T A K E PO 240 150 390 PO 240 150 390 IV 425 853 2036 D5 NS 978 519 2615 Shift Total 552 163 9333 1437 O U T P U T [...] October 31, 2017 TIME: 6:15 AM Pager: [phone] NURSING PROG Observed: 10/31/2017 Status: COMPLETED Source: [place] 5:09 AM [facility] OTHER [facility]AMP[facility] REPOSITORY HNO ID: [id number] Author: Mary (Rn) Eddie, RN Service: (none) Author Type: Registered Nurse Type: Nursing Progress Note Filed: 10/31/2017 5:10 AM Note Text: If patient is to be intermediate project manager would recommend PICC patient with right arm gross infiltrate and on left with extremely poor venous access staff nurse notified HEMOGRAM/DIFF Collected: 10/31/2017 Status: F Source: [facility] 5:05 AM HEALTH SYSTEM REPOSITORY TYPE CODE [...] 1.43 LAB MONON(LOIN 0.27-0.70 thou/cmm C) Abs. [place] 0.30 LAB EOSN(LOINC 0.00-0.31 thou/cmm ) Abs. Eosin 0.08 LAB BASON(LOIN 0.01-0.08 thou/cmm C) Abs. Baso 0.05 Performed By: #### CBCD1 #### [facility] [address] [place] [address] PHOSPHORUS BLOOD Collected: 10/31/2017 Status: F Source: [facility] 5:[facility] REPOSITORY TYPE CODE TESTS RESULT OUT OF REFERENCE UNITS RANGE LAB PHOS(LOINC 2.5-4.9 mg/dL ) Low alert Phosphorus Blood 1.7 Performed By: #### PHOS #### [place] [address] BASIC PANEL Collected: 10/31/2017 Status: F Source: [facility] 5:[address] [place] [address] SYSTEM REPOSITORY TYPE CODE TESTS RESULT OUT [...] Low 5 Performed By: #### P8 #### [place] [address] MDRD GFR Collected: 10/31/2017 Status: F Source: [facility] 5:[facility] REPOSITORY TYPE CODE TESTS RESULT OUT OF RANGE REFERENCE UNITS LAB GFRFN(LOINC >60mL/min/1.73m ) 2 eGFR >60 Result Comment: If the patient is , multiply the result by 1.210. Performed By: #### GFR #### [place] [address] GLUCOSE METER Collected: 10/30/2017 Status: F Source: [facility] 9:16 PM HEALTH SYSTEM REPOSITORY TYPE CODE TESTS RESULT OUT OF REFERENCE UNITS RANGE LAB GLUBL(LOINC 70-99 mg/dL ) High Glucose Meter 112 Result Comment: RN NOTIFIED Performed By: #### GLMET #### [facility] [address] [place] [address] GLUCOSE METER Collected: 10/30/2017 Status: F Source: [facility] 5:18 PM HEALTH SYSTEM REPOSITORY TYPE CODE TESTS RESULT OUT OF REFERENCE UNITS RANGE LAB GLUBL(LOINC 70-99 mg/dL ) High Glucose Meter 119 Result Comment: RN NOTIFIED Performed By: #### GLMET #### [facility] [address] [place] [address] CASE MANAGEM Observed: 10/30/2017 Status: COMPLETED Source: [place] 2:39 PM [facility] REPOSITORY HNO ID: [id number] Author: Roro LiraRn) PRACHI Schwartz Service: Care Management Author Type: Registered Nurse Type: Care Mgt Progress Note Filed: 10/30/2017 2:44 PM Note Text: CARE MANAGEMENT PROGRESS NOTE SERVICE DATE: 10/30/2017 SERVICE TIME: 1130 LOS: 4 days Needs Prior to Discharge: OT/PT Evaluation Spoke with Surgery [employer] SEWING MACHINE OPERATOR who reports patient's son wants an evaluation for possible therapy/placement at discharge. PT/OT evaluation and recommendations pending. Continue to follow for discharge planning needs. SIGNATURE: Roro Schwartz RN PATIENT NAME: Vee Hyatt DATE: October 30, 2017 TIME: 2:39 PM PAGER/CONTACT #: [phone] GLUCOSE METER Collected: 10/30/2017 Status: F Source: [facility] 11:34 AM HEALTH SYSTEM REPOSITORY TYPE CODE TESTS RESULT OUT OF REFERENCE UNITS RANGE LAB GLUBL(LOINC 70-99 mg/dL ) High Glucose Meter 134 Performed By: #### GLMET #### [facility] [address] [place] [address] CASE MANAGEM Observed: 10/30/2017 Status: COMPLETED Source: [place] 9:34 AM CLINIC OTHER EIGHTY FOUR REPOSITORY HNO ID: [id number] Author: Roro LiraRn) PRACHI Schwartz Service: Care [...] 30, 2017 TIME: 9:34 AM PAGER/CONTACT #: [phone] GLUCOSE METER Collected: 10/30/2017 Status: F Source: [facility] 6:58 AM HEALTH SYSTEM REPOSITORY TYPE CODE TESTS RESULT OUT OF REFERENCE UNITS RANGE LAB GLUBL(LOINC 70-99 mg/dL ) High Glucose Meter 107 Result Comment: RN NOTIFIED Performed By: #### GLMET #### [place] [address] PROGRESS Observed: 10/30/2017 Status: COMPLETED Source: [place] 6:41 AM CLINIC OTHER CAMPUS REPOSITORY HNO ID: [id number] Author: Jere Bryson Service: General Surgery Author [...] likely need SNF on dc, son requests [facility]. Discussed with patient's son that cardiopulmonary risks [...] - 10/30/1759 10/30/17699 - 10/31/17 0659 Shift 6369-9940 5305-5926 4760-2871 24 Hour Total 9469-2658 7100-2837 2664-5186 24 Hour Total I N T A K E PO 480 360 150 990 PO 480 360 150 990 IV 7779 079 9912 D5 NS 9094 926 9726 Shift Total 1480 349 376 6011 O U T P U T Urine [...] October 30, 2017 TIME: 6:41 AM Pager: [phone] HEMOGRAM/DIFF Collected: 10/30/2017 Status: F Source: [facility] 4:20 AM HEALTH SYSTEM REPOSITORY TYPE CODE [...] 0.79 LAB MONON(LOIN 0.27-0.70 thou/cmm C) Abs. [place] 0.42 LAB EOSN(LOINC 0.00-0.31 thou/cmm ) Abs. Eosin 0.14 LAB BASON(LOIN 0.01-0.08 thou/cmm C) Abs. Baso 0.04 Performed By: #### CBCD1 #### [facility] [address] [place] [address] PHOSPHORUS BLOOD Collected: 10/30/2017 Status: F Source: [facility] 4:20 AM HEALTH SYSTEM REPOSITORY TYPE CODE TESTS RESULT OUT OF REFERENCE UNITS RANGE LAB PHOS(LOINC 2.5-4.9 mg/dL ) Low Phosphorus Blood 2.2 Performed By: #### PHOS #### [place] [address] MAGNESIUM BLOOD Collected: 10/30/2017 Status: F Source: [facility] 4:20 AM HEALTH SYSTEM REPOSITORY TYPE CODE TESTS RESULT OUT OF REFERENCE UNITS RANGE LAB MAG(LOINC) 1.6-2.6 mg/dL Magnesium Blood 2.0 Performed By: #### MAG #### [place] [address] BASIC PANEL Collected: 10/30/2017 Status: F Source: [facility] 4:20 AM HEALTH SYSTEM REPOSITORY TYPE CODE [...] Gap 6 Performed By: #### P8 #### [place] [address] MDRD GFR Collected: 10/30/2017 Status: F Source: [facility] 4:20 AM HEALTH SYSTEM REPOSITORY TYPE CODE TESTS RESULT OUT OF RANGE REFERENCE UNITS LAB GFRFN(LOINC >60mL/min/1.73m ) 2 eGFR >60 Result Comment: If the patient is , multiply the result by 1.210. Performed By: #### GFR #### [facility] [address] [place], [place] [address] GLUCOSE METER Collected: 10/29/2017 Status: F Source: [facility] 9:00 PM HEALTH SYSTEM REPOSITORY TYPE CODE TESTS RESULT OUT OF REFERENCE UNITS RANGE LAB GLUBL(LOINC 70-99 mg/dL ) High Glucose Meter 120 Result Comment: RN NOTIFIED Performed By: #### GLMET #### [facility] [address] [place], [place] [address] CONSULT Observed: 10/29/2017 Status: COMPLETED Source: [place] 5:27 PM CLINIC OTHER CAMPUS REPOSITORY HNO ID: [id number] Author: Paul Shields Service: Gastroenterology Surgery Author Type: Physician Type: Consults Filed: 10/29/2017 5:41 PM Note Text: CONSULT: SURGERY SERVICE SERVICE DATE: 10/29/2017 REASON FOR CONSULT: Diaphragmatic hernia REQUESTING PHYSICIAN: Dr. Ludwig PRIMARY CARE PHYSICIAN: Diana George CNP Subjective I was asked to see this patient by Dr Ludwig for a recommendation on her diaphragmatic hernia. Ms. Haytt is a 77 year old frail female who presents from [facility] where she was seen for the flu. She was noted to have abdominal and right chest pain. A CT revealed a large diaphragmatic hernia. She has been having occasional right sided chest pain and has been in the ER several times per her son whom I spoke with on the phone.She was seen by a cardiotoracic surgeon in [place] in late 2015 who did not want [...] Dr. Douglas. SIGNATURE: Paul Shields MD, FACS, [facility] PATIENT NAME: Vee Hyatt DATE: October 29, 2017 TIME: 5:27 PM PAGER: GLUCOSE METER Collected: 10/29/2017 Status: F Source: [facility] 5:12 PM HEALTH SYSTEM REPOSITORY TYPE CODE TESTS RESULT OUT OF REFERENCE UNITS RANGE LAB GLUBL(LOINC 70-99 mg/dL ) High Glucose Meter 108 Result Comment: RN NOTIFIED Performed By: #### GLMET #### [facility] [address] [place] [id number] 12 LEAD ELECTROCARDIOGRAM Observed: 10/29/2017 Status: F Source: [place] 3:29 PM [facility] REPOSITORY [facility] Cardiovascular Services [address] [place] [address] 12 Lead EKG 10/25/17 2332 MR#: [id number] Acct: [id number] Name: VEE HYATT Rep #: [id number] : 1940 77 From: Orville Dumont MD Attending Dr: Maddy Bolaños Status: DIS AKIRA Ordering Dr: Immanuel Gonzales MD Date: 10/25/17 Location: [facility] Sex: F C Admitted: 10/26/17 Test Reason [...] ECG Confirmed by ORVILLE DUMONT MD ([id number]), newspaper editor managing KELLEN SUAREZ ([id number]) on 10/29/2017 3:28:58 PM Referred By: Jose L Valenzuela Confirmed By:ORVILLE DUMONT MD 10/29/17 1529 Date Orville Dumont MD CC: Jose L Valenzuela MD Signed CONSULTATION Observed: 10/29/2017 Status: F Source: [place] 3:24 PM [facility] REPOSITORY [facility] Medical Records Department [address] [place] [address] Consultation 10/26/17 1047 MR#: [id number] Acct: [id number] Name: VEE HYATT Rep #: [id number] : 1940 77 From: Estefania Trinidad MD PCP: Jose L Valenzuela MD Status: DIS AKIRA Y Location: MS3 [id number] Reason for Consult Date of Consultation: 10/26/17 [...] previously saw Dr. 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 Bar at [facility] about a little over a year ago for this but patient was not having symptoms at this time. Also discussed with the son Kalia per the patient's request and he suggested going back to [place] if possible for transfer versus [facility] or the [facility] as they did like Dr. Bar. Did also discuss the patient and her son that there was a lesion on the left kidney which would also require further workup and on CT was concerning for renal cell carcinoma. Patient's no further questions at this time. Also discussed with Dr. Bolaños. Estefania Trinidad M.D. Pager: [phone] [facility] [address] [place] [address], [address] [place] [address] Office: [phone] Code Visit Inpatient E AND M: [id number] Init Hosp L1 10/29/17 1524 <Electronically signed by Estefania Trinidad MD> Date Estefania Trinidad MD Cosigner Signature (if applicable): Date CC: Gurmeet Urena MD; Jose L Valenzuela MD; Estefania Trinidad MD Signed CASE MGT INIT Observed: 10/29/2017 Status: COMPLETED Source: [facility] 3:09 PM CLINIC OTHER CAMPUS REPOSITORY HNO ID: [id number] Author: Roro (Rn) PRACHI Schwartz Service: Care Management Author Type: Registered Nurse Type: Care Mgt Initial Assessment Filed: 10/29/2017 3:14 PM Note Text: CARE MANAGEMENT: ASSESSMENT AND DISCHARGE PLAN SERVICE DATE: 10/29/2017 SERVICE TIME: 1430 PRIMARY CARE PHYSICIAN: Diana George CNP ADMISSION STATUS: Inpatient POTENTIAL DISCHARGE PLANS 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 Yes: Living Will Durable Power of Yeast Washer for Health Care: Kalia kessler , Does Patient Have Concerns About Advance Directives? No PRIOR TO ADMISSION: Baseline Mental Status: Alert AND Oriented, Person, Place , Time and Situation Functional Status: Independent (mostly) Does Patient Currently Receive Any Community Services or Home Care? 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 No FREEDOM OF CHOICE EXPLAINED: N/A --no needs noted at this time. HANDOFF COMMUNICATION: Patient's son will transport home at discharge. SIGNATURE: Roro Schwartz RN PATIENT NAME: Vee Hyatt DATE: October 29, 2017 TIME: 3:09 PM PAGER/CONTACT #: [phone] CASE MANAGEM Observed: 10/29/2017 Status: COMPLETED Source: [place] 12:21 PM [facility] REPOSITORY HNO ID: [id number] Author: Roro LiraRn) PRACHI Schwartz Service: Care Management Author Type: Registered Nurse Type: Care Mgt Progress Note Filed: 10/29/2017 12:24 PM Note Text: CARE MANAGEMENT PROGRESS NOTE SERVICE DATE: 10/29/2017 SERVICE TIME: 1222 LOS: 3 days Needs Prior to Discharge: None;To Be Determined Patient directly admitted from [facility] ED with Diaphragmatic hernia. Await treatment plans per General Surgery. Continue to follow for discharge planning needs. SIGNATURE: Roro Schwartz RN PATIENT NAME: Vee Hyatt DATE: October 29, 2017 TIME: 12:22 PM PAGER/CONTACT #: [phone] GLUCOSE METER Collected: 10/29/2017 Status: F Source: [facility] 11:33 AM HEALTH SYSTEM REPOSITORY TYPE CODE TESTS RESULT OUT OF REFERENCE UNITS RANGE LAB GLUBL(LOINC 70-99 mg/dL ) High Glucose Meter 114 Result Comment: RN NOTIFIED Performed By: #### GLMET #### [place] [address] NURSING PROG Observed: 10/29/2017 Status: COMPLETED Source: [place] 8:42 AM [facility] REPOSITORY HNO ID: [id number] Author: Eugenio LiraRn) PRACHI Saunders Service: Nursing Author Type: Registered Nurse Type: Nursing Progress Note Filed: 10/29/2017 8:46 AM Note Text: Nursing Progress Note Patient Name: Vee Hyatt Patient Location: [place] [address] [address] Daily Note:Alerted Resident, Braydon, that pt was put on clears and needed insulin and blood sugar checks changed from q6 to achs. Resident to change orders. This note was completed by: Eugenio Saunders RN PROGRESS Observed: 10/29/2017 Status: COMPLETED Source: [place] 5:58 [facility] REPOSITORY HNO ID: [id number] Author: Elliot Strickland Service: General Surgery Author Type: Resident Type: Progress Notes Filed: 10/29/2017 8:50 AM Note Text: Attestation signed by Diane De Los Santos at 10/29/2017 3:32 PM Patient reports abdominal pain has improved and is now at her baseline. No nausea or vomiting with clears. Abd soft NT ND WBC 14 CT reviewed, no evidence of obstruction Appreciate consult by Dr. Murillo. He recommends [...] 0659 10/29/17 07 - 10/30/17 0659 Shift 8301-8540 1623-3000 2120-5309 24 Hour Total 5283-2966 2261-0036 3756-7109 24 Hour Total I N T A K E IV 362 1000 1362 D5 NS 362 1000 1362 Shift Total 362 1000 1362 O U T P U T Urine 350 526 766 2335 Void (ml) 350 858 000 5642 Urine Incontinence/Not Saved 1 x 1 x 2 x Shift Total 350 971 162 2726 Weight (kg) 77.1 77.1 77.1 77.1 77.1 [...] October 29, 2017 TIME: 5:58 AM Pager: [phone] GLUCOSE METER Collected: 10/29/2017 Status: F Source: [facility] 5:44 AM HEALTH SYSTEM REPOSITORY TYPE CODE TESTS RESULT OUT OF REFERENCE UNITS RANGE LAB GLUBL(LOINC 70-99 mg/dL ) High Glucose Meter 114 Result Comment: RN NOTIFIED Performed By: #### GLMET #### [place] [address] HEMOGRAM/DIFF Collected: 10/29/2017 Status: F Source: [facility] 3:35 AM HEALTH SYSTEM REPOSITORY TYPE CODE [...] LAB MONON(LOIN 0.27-0.70 thou/cmm C) Abs. High [place] 0.97 LAB EOSN(LOINC 0.00-0.31 thou/cmm ) Abs. Eosin 0.27 LAB BASON(LOIN 0.01-0.08 thou/cmm C) Abs. Baso 0.07 Result Comment: Smear scanned; tech agrees with automated differential Performed By: #### CBCD1 #### [place] [address] PHOSPHORUS BLOOD Collected: 10/29/2017 Status: F Source: [facility] 3:35 AM HEALTH SYSTEM REPOSITORY TYPE CODE TESTS RESULT OUT OF REFERENCE UNITS RANGE LAB PHOS(LOINC 2.5-4.9 mg/dL ) Phosphorus Blood 2.6 Performed By: #### PHOS #### [place] [address] MAGNESIUM BLOOD Collected: 10/29/2017 Status: F Source: [facility] 3:35 AM HEALTH SYSTEM REPOSITORY TYPE CODE TESTS RESULT OUT OF REFERENCE UNITS RANGE LAB MAG(LOINC) 1.6-2.6 mg/dL Magnesium Blood 2.2 Performed By: #### MAG #### [facility] [address] [place] [address] BASIC PANEL Collected: 10/29/2017 Status: F Source: [facility] 3:35 AM HEALTH SYSTEM REPOSITORY TYPE CODE [...] Gap 6 Performed By: #### P8 #### [place] [address] MDRD GFR Collected: 10/29/2017 Status: F Source: [facility] 3:35 AM HEALTH SYSTEM REPOSITORY TYPE CODE TESTS RESULT OUT OF RANGE REFERENCE UNITS LAB GFRFN(LOINC >60mL/min/1.73m ) 2 eGFR >60 Result Comment: If the patient is , multiply the result by 1.210. Performed By: #### GFR #### [address] [address] GLUCOSE METER Collected: 10/28/2017 Status: F Source: [facility] 11:45 PM HEALTH SYSTEM REPOSITORY TYPE CODE TESTS RESULT OUT OF REFERENCE UNITS RANGE LAB GLUBL(LOINC 70-99 mg/dL ) High Glucose Meter 116 Result Comment: RN NOTIFIED Performed By: #### GLMET #### [facility] [address] [place] [id number] GLUCOSE METER Collected: 10/28/2017 Status: F Source: [facility] 5:56 PM HEALTH SYSTEM REPOSITORY TYPE CODE TESTS RESULT OUT OF REFERENCE UNITS RANGE LAB GLUBL(LOINC 70-99 mg/dL ) High Glucose Meter 127 Performed By: #### GLMET #### [facility] [address] [place], [place] [address] GLUCOSE METER Collected: 10/28/2017 Status: F Source: [facility] 11:57 AM HEALTH SYSTEM REPOSITORY TYPE CODE TESTS RESULT OUT OF REFERENCE UNITS RANGE LAB GLUBL(LOINC 70-99 mg/dL ) High Glucose Meter 127 Performed By: #### GLMET #### [facility] [address] [place], [place] [address] PROGRESS Observed: 10/28/2017 Status: COMPLETED Source: [place] 6:20 AM CLINIC OTHER CAMPUS REPOSITORY HNO ID: [id number] Author: Elliot Strickland Service: General Surgery Author [...] 10/28/17 0659 10/28/17699 - 10/29/17 0659 Shift 5742-3454 7584-1462 5466-5642 24 Hour Total 7136-5221 1021-2340 7942-5677 24 Hour Total I N T A [...] October 28, 2017 TIME: 6:20 AM Pager: [phone] GLUCOSE METER Collected: 10/28/2017 Status: F Source: [facility] 6:11 AM HEALTH SYSTEM REPOSITORY TYPE CODE TESTS RESULT OUT OF REFERENCE UNITS RANGE LAB GLUBL(LOINC 70-99 mg/dL ) High Glucose Meter 112 Performed By: #### GLMET #### [place] [address] HEMOGRAM/DIFF Collected: 10/28/2017 Status: F Source: [facility] 3:40 AM HEALTH SYSTEM REPOSITORY TYPE CODE [...] 1.62 LAB MONON(LOIN 0.27-0.70 thou/cmm C) Abs. [place] 0.64 LAB EOSN(LOINC 0.00-0.31 thou/cmm ) Abs. Eosin 0.26 LAB BASON(LOIN 0.01-0.08 thou/cmm C) Abs. Baso 0.04 Performed By: #### CBCD1 #### [place] [address] PHOSPHORUS BLOOD Collected: 10/28/2017 Status: F Source: [facility] 3:40 AM HEALTH SYSTEM REPOSITORY TYPE CODE TESTS RESULT OUT OF REFERENCE UNITS RANGE LAB PHOS(LOINC 2.5-4.9 mg/dL ) Phosphorus Blood 3.5 Performed By: #### PHOS #### [place] [address] MAGNESIUM BLOOD Collected: 10/28/2017 Status: F Source: [facility] 3:40 AM HEALTH SYSTEM REPOSITORY TYPE CODE TESTS RESULT OUT OF REFERENCE UNITS RANGE LAB MAG(LOINC) 1.6-2.6 mg/dL Magnesium Blood 2.3 Performed By: #### MAG #### [facility] [address] [place] [address] BASIC PANEL Collected: 10/28/2017 Status: F Source: [facility] 3:40 AM HEALTH SYSTEM REPOSITORY TYPE CODE [...] Gap 7 Performed By: #### P8 #### [facility] [address] [place] [address] MDRD GFR Collected: 10/28/2017 Status: F Source: [facility] 3:40 AM HEALTH SYSTEM REPOSITORY TYPE CODE TESTS RESULT OUT OF RANGE REFERENCE UNITS LAB GFRFN(LOINC >60mL/min/1.73m ) 2 eGFR >60 Result Comment: If the patient is , multiply the result by 1.210. Performed By: #### GFR #### [facility] [address] [place] [address] GLUCOSE METER Collected: 10/28/2017 Status: F Source: [facility] 12:02 AM HEALTH SYSTEM REPOSITORY TYPE CODE TESTS RESULT OUT OF REFERENCE UNITS RANGE LAB GLUBL(LOINC 70-99 mg/dL ) High Glucose Meter 123 Performed By: #### GLMET #### [facility] [address] [place] [address] GLUCOSE METER Collected: 10/27/2017 Status: F Source: [facility] 5:34 PM HEALTH SYSTEM REPOSITORY TYPE CODE TESTS RESULT OUT OF REFERENCE UNITS RANGE LAB GLUBL(LOINC 70-99 mg/dL ) High Glucose Meter 104 Result Comment: RN NOTIFIED Performed By: #### GLMET #### [facility] [address] [place], [place] [address] GLUCOSE METER Collected: 10/27/2017 Status: F Source: [facility] 12:27 PM HEALTH SYSTEM REPOSITORY TYPE CODE TESTS RESULT OUT OF REFERENCE UNITS RANGE LAB GLUBL(LOINC 70-99 mg/dL ) High Glucose Meter 154 Performed By: #### GLMET #### [facility] [address] [place], [place] [address] PROGRESS Observed: 10/27/2017 Status: COMPLETED Source: [place] 7:03 AM [facility] OTHER CAMPUS REPOSITORY HNO ID: [id number] Author: Elliot Strickland Service: General Surgery Author [...] 0659 10/27/17 07 - 10/28/17 0659 Shift 5372-7994 0102-9205 9337-2709 24 Hour Total 5318-2747 5232-7400 1287-3076 24 Hour Total I N T A [...] SIGNATURE: Elliot Strickland MD PATIENT NAME: Vee yHatt DATE: October 27, 2017 TIME: 7:03 AM Pager: [phone] GLUCOSE METER Collected: 10/27/2017 Status: F Source: [facility] 6:24 AM HEALTH SYSTEM REPOSITORY TYPE CODE TESTS RESULT OUT OF REFERENCE UNITS RANGE LAB GLUBL(LOINC 70-99 mg/dL ) High Glucose Meter 159 Result Comment: RN NOTIFIED Performed By: #### GLMET #### [place] [address] HEMOGRAM/DIFF Collected: 10/27/2017 Status: F Source: [facility] 4:37 AM HEALTH SYSTEM REPOSITORY TYPE CODE [...] 1.86 LAB MONON(LOIN 0.27-0.70 thou/cmm C) Abs. [place] 0.55 LAB EOSN(LOINC 0.00-0.31 thou/cmm ) Abs. Eosin 0.27 LAB BASON(LOIN 0.01-0.08 thou/cmm C) Abs. Baso 0.07 Performed By: #### CBCD1 #### [place] [address] PHOSPHORUS BLOOD Collected: 10/27/2017 Status: F Source: [facility] 4:37 AM HEALTH SYSTEM REPOSITORY TYPE CODE TESTS RESULT OUT OF REFERENCE UNITS RANGE LAB PHOS(LOINC 2.5-4.9 mg/dL ) Phosphorus Blood 2.7 Performed By: #### PHOS #### [place] [address] MAGNESIUM BLOOD Collected: 10/27/2017 Status: F Source: [facility] 4:37 AM HEALTH SYSTEM REPOSITORY TYPE CODE TESTS RESULT OUT OF REFERENCE UNITS RANGE LAB MAG(LOINC) 1.6-2.6 mg/dL Magnesium Blood 2.5 Performed By: #### MAG #### [facility] [address] [place] [address] BASIC PANEL Collected: 10/27/2017 Status: F Source: [facility] 4:37 AM HEALTH SYSTEM REPOSITORY TYPE CODE [...] Gap 4 Performed By: #### P8 #### [place] [address] MDRD GFR Collected: 10/27/2017 Status: F Source: [facility] 4:37 AM HEALTH SYSTEM REPOSITORY TYPE CODE TESTS RESULT OUT OF RANGE REFERENCE UNITS LAB GFRFN(LOINC >60mL/min/1.73m ) 2 eGFR >60 Result Comment: If the patient is , multiply the result by 1.210. Performed By: #### GFR #### [facility] [address] [place] [address] GLUCOSE METER Collected: 10/27/2017 Status: F Source: [facility] 12:02 AM HEALTH SYSTEM REPOSITORY TYPE CODE TESTS RESULT OUT OF REFERENCE UNITS RANGE LAB GLUBL(LOINC 70-99 mg/dL ) High Glucose Meter 138 Result Comment: RN NOTIFIED Performed By: #### GLMET #### [facility] [address] [place] [address] GLUCOSE METER Collected: 10/26/2017 Status: F Source: [facility] 6:38 PM HEALTH SYSTEM REPOSITORY TYPE CODE TESTS RESULT OUT OF REFERENCE UNITS RANGE LAB GLUBL(LOINC 70-99 mg/dL ) High Glucose Meter 114 Result Comment: RN NOTIFIED Performed By: #### GLMET #### [facility] [address] [place], [place] [address] HISTORY PHYSICAL Observed: 10/26/2017 Status: COMPLETED Source: [place] 5:24 PM CLINIC OTHER CAMPUS REPOSITORY HNO ID: [id number] Author: Elliot Strickland Service: General Surgery Author [...] who presents as a direct admit from [facility] ED for right-sided diaphragmatic hernia. Pt states [...] this diaphragmatic hernia by Dr. Bar in [place], but decision made not to pursue operation due to anesthesia concerns and likelihood of post-op pain control issues. Workup at [facility] included CTA of chest (no PE) and labs significant for WBC 13.3, lipase 201. Normal results for the following: lactate, troponin, hepatic panel, PT/INR, Hgb, urinalysis. CT abdomen/pelvis showed large anterior right-sided diaphragmatic hernia with multiple distal small bowel loops, transverse colon, mesenteric vessels, and fat (and an incidental renal lesion c/f renal cell carcinoma - pt notified). Also of note, [facility] care team believes pt may need SNF at discharge for rehab. Physician also mentioned believe the patient also has a psychological overlay and fixates on her abdominal pain and seeks nausea and pain meds. History provided from patient and son as well as notes from [facility] ED. FUNCTIONAL STATUS: Mostly Independent PAST MEDICAL [...] reviewed for today's visit: Outside chart from [facility] reviewed. - see HPI for significant findings [...] 10/26/2017 Status: F Source: [place] 4:16 PM [facility] REPOSITORY [facility] Medical Records Department [address] [place] [address] Discharge Summary 10/26/17 1308 MR#: [id number] Acct: [id number] Name: VEE HYATT Rep #: [id number] : 1940 77 From: Deisy Garvey SAP INTEGRATION ARCHITECT-C PCP: Jose L Valenzuela MD Status: DIS AKIRA Y Location: [place] [address] ADDENDUM by Maddy Bolaños on 10/26/17 at [...] prior psychiatric regimen who presented to the [facility] ED on 10/26/17 early AM with ongoing [...] regimen, PRN anti-emetics while awaiting transfer to [facility] who accepted patient. DAY OF DISCHARGE PROGRESS NOTE: Subjective: Patient with ongoing abdominal discomfort since admission this AM with nausea without emesis. She has several complaints including timeliness of nurse light being answered. Patient denies fever, chills, emesis, chest pain or dyspnea. Patient agreeable to discharge to [facility] for further evaluation of abdominal pain with [...] hospital summary above. OBSV E AND M: [id number] Observ/hosp same date L3 10/26/17 1616 <Electronically signed by Maddy Bolaños > Date Maddy Bolaños cc: SAP INTEGRATION ARCHITECTBrandie Garvey; Maddy Bolaños; Jose L Valenzuela MD [...] fixation (Chronic) left femur 06/22, Dr Spears, [facility] Tinea unguium (Chronic) Dyskinesia, tardive (Chronic) Takatsuki [...] for repair. Patient was previously seen at [facility] but was told intervention was not able to be completed at their facility due to complicated case. [facility] willing to accept patient and patient is [...] 10/26/17 1434 <Electronically signed by Deisy Garvey SAP INTEGRATION ARCHITECT-C> Date Deisy Garvey SAP INTEGRATION ARCHITECT-C 10/26/17 1559<Electronically signed by Maddy Bolaños > Cosigner Signature (if applicable): Date Maddy Bolaños CC: SAP INTEGRATION ARCHITECT-C Deisy Garvey; Maddy Bolaños; Jose L Valenzuela MD Signed Observed: 10/26/2017 Status: F Source: [place] RESPIRATORY PANEL 11:07 AM [facility]LECULAR REPOSITORY RP PANEL ADENOVIRUS Not Detected [...] acid amplification Performed By: #### M100.638 #### [facility] [address] [facility] [facility] [place], [address] LIPASE Collected: 10/26/2017 Status: F Source: [place] 9:15 AM [facility] REPOSITORY TYPE CODE TESTS RESULT OUT OF RANGE REFERENCE UNITS LAB L501.2450 73-393 U/L Normal LIPASE 201 Performed By: #### L501.2450 #### [facility] [address] [place], [place], [address] EMERGENCY DEPARTMENT Observed: 10/26/2017 Status: F Source: CORONA SUMMARY 5:02 AM [facility] REPOSITORY [facility] Medical Records Department [address] [place] [address] Emergency Department Summary 10/26/17 0306 MR#: [id number] Acct: [id number] Name: VEE HYATT Rep #: [id number] : 1940 77 From: Immanuel Gonzales MD [...] not new. She saw a surgeon in [place] and at this time she is not [...] cell carcinoma This note was generated with [employer] dictation software. It may contain incorrect words, [...] your Primary Care Provider. Call [facility] ([phone]) or report to the closest Emergency Room. Call 911 if necessary. 10/26/17 3663 <Electronically signed by Immanuel oGnzales MD> Date Immanuel Gonzales MD Cosigner Signature (If Indicated): Date CC: Jose L Valenzuela MD HISTORY AND PHYSICAL Observed: 10/26/2017 Status: F Source: [place] EXAM 5:02 AM [facility] Medical Records Department [address] [place] [address] History and Physical 10/26/17 4772 MR#: [id number] Acct: [id number] Name: VEE HYATT Rep #: [id number] : 1940 77 From: Rommel Hansen DO PCP: Jose L Valenzuela MD Status: ADM AKIRA Y Location: MS3 LD165-9 Problem List (1) Generalized weakness Status: Acute (2) Abdominal pain Status: Acute Qualifiers: Abdominal location: lower abdomen, unspecified Qualified Code(s): R10.30 - Lower abdominal pain, unspecified History of Present Illness Date of Admission: 10/26/17 Chief Complaint: Generalized weakness, generalized abdominal pain The patient is a 77 year old F who was seen in the emergency room at [facility] with a chief complaint of abdominal pain which she states worsened on 10/25/17, she has a history of chronic abdominal pain and a large diaphragmatic hernia on the right side. Patient was recently hospitalized here at [facility] for gastroenteritis and hypoxia, she returned home the next day. During that admission I cared for the patient and I talked with the patient's primary care physician who confirms that the patient has a history of chronic abdominal pain and overuse of antinausea medications. 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 Code Visit OBSV E AND M: [id number] Initial observation care L3 10/26/17 0502 <Electronically signed by Rommel Hansen DO> Date Rommel Hansen DO Cosigner Signature: Date (if applicable) CC: Rommel Hansen DO; Jose L Valenzuela MD Signed URINALYSIS, COMPLETE Collected: 10/26/2017 Status: F Source: [place] 12:45 AM [facility] Order Comment: Order Date: 10/25/17 How [...] URINE SEEN Performed By: #### L400.0001 #### [facility] [address] [place], [address] PROTHROMBIN TIME W/INR Collected: 10/26/2017 Status: F Source: SUS[place] 12:30 AM [facility] Order Comment: REDRAW. PREVIOUS SPECIMEN REJECTED DUE TO HEMOLYSIS >4+. 10/26/17 0004 Carlene George. TYPE CODE TESTS RESULT OUT OF RANGE REFERENCE UNITS LAB L300.4150 11.7-14.9 SECONDS Normal PROTIME 12.6 LAB L300.4200 Normal INR 1.0 Performed By: #### L300.3900, L300.4310 #### [facility] [address] [place], [address] PARTIAL THROMBOPLAST Collected: 10/26/2017 Status: F Source: [place] TIME 12:30 AM [facility] Order Comment: REDRAW. PREVIOUS SPECIMEN REJECTED DUE TO HEMOLYSIS >4+. 10/26/17 0004 Carlene George. TYPE CODE TESTS RESULT OUT OF RANGE REFERENCE UNITS LAB L300.4310 24.1-36.2 Seconds Normal PTT 24.2 Performed By: #### L300.3900, L300.4310 #### [facility] [address] [place], [address] LACTIC ACID Collected: 10/26/2017 Status: F Source: COR[place] 12:30 AM [facility] Order Comment: REDRAW. PREVIOUS SPECIMEN REJECTED DUE TO HEMOLYSIS >4+. 10/26/17 0004 Carlene George. Yes/No query for Sepsis Lactate Rule Y TYPE CODE TESTS RESULT OUT OF RANGE REFERENCE UNITS LAB L503.6005 0.4-2.0 mmol/L Normal LACTIC ACID 0.6 Performed By: #### L503.6005 #### [facility] [address] [place], [address] CT ANGIO ABD AND Observed: 10/25/2017 Status: F Source: [place] PEL W/O AND W/DYE 11:44 PM [facility] Imaging Services [address] [place] [address] CT ANGIO ABD AND PEL W/O AND W/DYE MR#: [id number] Acct: [id number] Name: VEE HYATT Rep #: [id number] : 1940 F 77 From: Richard Garcia MD PCP: Jose L Valenzuela MD Status: REG ER Study: CT ANGIO ABD AND PEL W/O AND W/DYE Date of Exam: 10/26/17 Exam# [id number] Ordering Dr: Immanuel Gonzales MD STUDY: CTA [...] Immanuel Gonzales MD; Jose L Valenzuela MD Energy Administrator: Signed CTA CHEST W/WO Observed: 10/25/2017 Status: F Source: [place] CONTRAST 11:42 PM [facility] Imaging Services [address] [place] [address] CTA Chest W/WO Contrast MR#: [id number] Acct: [id number] Name: VEE HYATT Rep #: [id number] : 1940 F 77 From: Richard Garcia MD PCP: Jose L Valenzuela MD Status: REG ER Study: CTA Chest W/WO Contrast Date of Exam: 10/26/17 Exam# [id number] Ordering Dr: Immanuel Gonzales MD STUDY: CTA [...] Immanuel Gonzales MD; Jose L Valenzuela MD Energy Administrator: Signed CBC W/DIFF, AUTOMATED Collected: 10/25/2017 Status: F Source: [place] 11:35 PM [facility] TYPE CODE TESTS RESULT OUT OF [...] Lymph 4.37 Performed By: #### L100.0100 #### [facility] [address] [place], [address] COMPREHENSIVE METABOLIC Collected: 10/25/2017 Status: F Source: [facility] 11:35 PM [facility] Order Comment: 'TROP' Serial specimen #1, [...] Performed By: #### L500.4050, L501.2450, L501.4010 #### [facility] [address] [place], [address] LIPASE Collected: 10/25/2017 Status: F Source: [place] 11:35 PM [facility] Order Comment: 'TROP' Serial specimen #1, #2, #3, or #4: 1 TYPE CODE TESTS RESULT OUT OF REFERENCE UNITS RANGE LAB L501.2450 73-393 U/L High LIPASE 483 Performed By: #### L500.4050, L501.2450, L501.4010 #### [facility] [address] [place], [address] TROPONIN-I Collected: 10/25/2017 Status: F Source: [place] 11:35 PM [facility] Order Comment: 'TROP' Serial specimen #1, #2, #3, or #4: 1 TYPE CODE TESTS RESULT OUT OF RANGE REFERENCE UNITS LAB L501.4010 <0.06 ng/mL Normal < 0.02 TROPONIN-I Result Comment: TROPONIN-I EXPECTED VALUES <0.05 NEGATIVE 0.06 - 0.59 AT RISK OF CO > OR = 0.60 SUGGEST CO Performed By: #### L500.4050, L501.2450, L501.4010 #### [facility] [address] [place], [address] CT-CTA CHEST W/WO Observed: 10/25/2017 Status: F Source: [place] CONTRAST IMPORT 12:00 AM [facility] REPOSITORY Images were obtained outside of [facility] [id number] CT-CT ANGIO ABD PEL Observed: 10/25/2017 Status: F Source: [place] W/O W/DYE IMPORT 12:00 AM [facility] REPOSITORY Images were obtained outside of [facility] [id number] 12 LEAD ELECTROCARDIOGRAM Observed: 10/23/2017 Status: F Source: SUS[place] 9:46 AM [facility] Cardiovascular Services [address] [facility] [place] [address] 12 Lead EKG 10/19/17 0910 MR#: [id number] Acct: [id number] Name: VEE HYATT Rep #: [id number] : 1940 76 From: Immanuel Mancia MD Attending Dr: Rommel Hansen DO Status: DIS AKIRA Ordering Dr: Jose Guadalupe Hernandez MD Date: 10/19/17 Location: MT3 Sex: F C Admitted: 10/19/17 Test Reason [...] Abnormal ECG Confirmed by IMMANUEL MANCIA ([id number]), newspaper editor managing KELLEN SUAREZ ([id number]) on 10/23/2017 9:45:43 AM Referred By: Jose L Valenzuela Confirmed By:IMMANUEL MANCIA 10/23/17 0945 Date Immanuel Mancia MD CC: Jose L Valenzuela MD Signed DISCHARGE SUMMARY Observed: 10/21/2017 Status: F Source: COR[place] 8:47 AM [facility] Medical Records Department [address] [place] [address] [place] [address] Discharge Summary 10/20/17 1326 MR#: [id number] Acct: [id number] Name: VEE HYATT Rep #: [id number] : 1940 76 From: Cesar MORALES PCP: Jose L Valenzuela MD Status: DIS AKIRA Y Location: MS3 MS152-5 ADDENDUM by Rommel Hansen DO on 10/21/17 at 0847 Code Visit OBSV E AND M: [id number] Observation care discharge 10/21/17 0847 <Electronically signed [...] fixation (Chronic) left femur 06/22, Dr Spears, [facility] Tinea unguium (Chronic) Dyskinesia, tardive (Chronic) Takatsuki [...] mg Sodium Diet, Bananas, Rice, Applesauce and Botines Discharge Activity: Return to Normal Activity Home [...] (Choose all that apply): None applicable 10/20/17 2034 <Electronically signed by Cesar MORALES> Date Cesar Hart Signature (if applicable): Date CC: CARMEN Fernandez; Rommel Hansen DO; Jose L Valenzuela MD Signed CONSULTATION Observed: 10/21/2017 Status: F Source: COR[place] 5:27 AM [facility] Medical Records Department [address] [place] [address] Consultation 10/20/17 0742 MR#: [id number] Acct: [id number] Name: VEE HYATT Rep #: [id number] : 1940 76 From: Cresencio Barkley MD PCP: Jose L Valenzuela MD Status: DIS AKIRA Y Location: [address] Problem List (1) Gastroenteritis Status: Acute (2) Hypoxia Status: Acute (3) Diabetic neuropathy Status: Acute Qualifiers: Diabetes mellitus type: type 2 Diabetes mellitus complication detail: with other neurological complication Qualified Code(s): E11.49 - Type 2 diabetes mellitus with other diabetic neurological complication (4) Status post total hip replacement, left Status: Acute Comment: 08/03/15, failed concervative pinning, completed by Dr Spears [facility] (5) Benign essential HTN Status: Chronic (6) Brain aneurysm Status: Chronic (7) CAD (coronary artery disease) Status: Chronic Qualifiers: Coronary Disease-Associated Artery/Lesion type: [place] artery [place] vs. transplanted heart: [place] heart Associated angina: without angina Qualified Code(s): I25.10 - Atherosclerotic heart disease of [place] coronary artery without angina pectoris (8) Depression [...] medical history listed below, who presented to [facility] on 10/19/2017 secondary to generalized weakness, nausea, [...] later states that she was evaluated in [place] approximately 1 year ago for possible correction [...] fixation (Chronic) left femur 06/22, Dr Spears, [facility] Tinea unguium (Chronic) Dyskinesia, tardive (Chronic) Takatsuki syndrome (Chronic) Brain aneurysm (Chronic) Takotsubo syndrome (Chronic) Hypertension (Chronic) Allergies No Known Allergies Allergy (Verified 03/17/17 10:29) Home Medications: Ambulatory Orders Medication Instructions Recorded Clonidine HCl 0.05 tab PO BID 03/17/17 Surgical History: appendectomy, cholecystectomy, herniorrhaphy, tonsillectomy, - - 06/22/15 left hip CRIF Psychiatric History: No pertinent psych hx, Depression SKIVER UPPERS OR LININGS History: No pertinent SKIVER UPPERS OR LININGS history Smoking Status: Never smoker - *Family [...] Fan Benavidez MD at 9:26 EST Tel [phone], Service support , Chest CT 10/19/17 16:56 [...] hernia. Code Visit Inpatient E AND M: 65784 Init Hosp L2 10/21/17 0527 <Electronically signed by Cresencio Barkley MD> Date Cresencio Barkley MD Cosigner Signature (if applicable): Date CC: Cresencio Barkley MD; Jose L Valenzuela MD Signed ECHO, COMPLETE W/ Observed: 10/20/2017 Status: F Source: [place] CONTRAST 2:28 PM [facility] Cardiovascular Services [address] [place] [address] Echo Complete 10/20/17 1145 MR#: [id number] Acct: [id number] Name: VEE HYATT Rep #: [id number] : 1940 76 From: Immanuel Mancia MD [...] Dictated: 10/20/17 1145 Date Transcribed: 10/20/17 1428 Energy Administrator: Signed DISCHARGE INSTRUCTION Observed: 10/20/2017 Status: F Source: SUS[place] 11:44 AM [facility] Medical Records Department [address] [place] [address] Instructions for Home/Discharge Instructions 10/20/17 1143 MR#: [id number] Acct: [id number] Name: VEE HYATT Rep #: [id number] : 1940 76 From: Cesar MORALES PCP: [...] 10/20/2017 Status: F Source: SUS[place] 6:27 AM [facility] TYPE CODE TESTS RESULT OUT OF [...] Lymph 0.77 Performed By: #### L100.0100 #### [facility] [address] [place], [address] BASIC METABOLIC Collected: 10/20/2017 Status: F Source: [place] PROFILE (BMP) 6:27 AM [facility] TYPE CODE TESTS RESULT OUT OF [...] GAP 6 Performed By: #### L500.2500 #### [facility] [address] [facility] [place], [address] HISTORY AND PHYSICAL Observed: 10/19/2017 Status: F Source: [place] EXAM 6:18 PM [facility] Medical Records Department [address] [place] [address] History and Physical 10/19/17 1510 MR#: [id number] Acct: [id number] Name: VEE HYATT Rep #: [id number] : 1940 76 From: Cesar MORALES PCP: Jose L Valenzuela MD Status: ADM AKIRA Y Location: [place] [address]-1 ADDENDUM by Rommel Hansen DO on 10/19/17 at 1818 Code Visit Vision seen and examined independently of Cesar Fernandez, she came to the ER today at [facility] with complaints of abdominal pain, nausea and [...] fixation (Chronic) left femur 06/22, Dr Spears, [facility] Tinea unguium (Chronic) Dyskinesia, tardive (Chronic) Takatsuki syndrome (Chronic) Brain aneurysm (Chronic) Takotsubo syndrome (Chronic) Hypertension (Chronic) Allergies No Known Allergies Allergy (Verified 03/17/17 10:29) Home Medications: Ambulatory Orders Medication Instructions Recorded Clonidine HCl 0.05 tab PO BID 03/17/17 Surgical History: appendectomy, cholecystectomy, herniorrhaphy, tonsillectomy, - - 06/22/15 left hip CRIF Psychiatric History: No pertinent psych hx, Depression SKIVER UPPERS OR LININGS History: No pertinent SKIVER UPPERS OR LININGS history Smoking Status: Never smoker - *Family [...] EMERGENCY DEPARTMENT Observed: 10/19/2017 Status: F Source: [place] SUMMARY 6:12 PM [facility] REPOSIT[facility] Medical Records Department [address] [place] [address] Emergency Department Summary 10/19/17 0930 MR#: [id number] Acct: [id number] Name: VEE HYATT Rep #: [id number] : 1940 76 From: Jose Guadalupe Hernandez [...] 2. Hypoxia This note was generated with [employer] dictation software. It may contain incorrect words, [...] your Primary Care Provider. Call [facility] ([phone]) or report to the closest Emergency Room. Call 911 if necessary. 10/19/17 1812 <Electronically signed by Jose Guadalupe Hernandez MD> Date Jose Guadalupe Hernandez MD Cosigner Signature (If Indicated): Date CC: Jose L Valenzuela MD CHEST WITHOUT Observed: 10/19/2017 Status: F Source: [place] CONTRAST 4:57 PM [facility] REPOSITORY [facility] Imaging Services [address] [place] [address] Chest without Contrast MR#: [id number] Acct: [id number] Name: VEE HYATT Rep #: [id number] : 1940 F 76 From: Lenny Cook PCP: Jose L Valenzuela MD Status: ADM AKIRA Study: Chest without Contrast Date of Exam: 10/19/17 Exam# [id number] Ordering Dr: Rommel Hansen DO STUDY: CT [...] Rommel Hansen DO; Jose L Valenzuela MD Energy Administrator: Signed BLOOD GASES BY CPS Collected: 10/19/2017 Status: F Source: [place]US[place] 1:30 PM [facility] TYPE CODE TESTS RESULT OUT OF [...] ISTAT Performed By: #### L9000.0800 #### [place] [facility] Point of Care [address] [place] [address] Observed: 10/19/2017 Status: F Source: [place] CULTURE, BLOOD (WB) 12:00 PM [facility] BC No growth in 5 days. Performed By: #### M200.1000 #### [facility] [address] [place] [place], [address] Observed: 10/19/2017 Status: F Source: [place] CULTURE, BLOOD (WB) 11:55 AM [facility] BC No growth in 5 days. Performed By: #### M200.1000 #### [facility] [address] [place], [address] URINALYSIS, COMPLETE Collected: 10/19/2017 Status: F Source: [place]US[place] 11:15 AM [facility] Order Comment: Order Date: 10/19/17 How [...] URINE SEEN Performed By: #### L400.0001 #### [facility] [address] [place] [place], [address] CBC W/DIFF, AUTOMATED Collected: 10/19/2017 Status: F Source: [place] 9:30 AM [facility] TYPE CODE TESTS RESULT OUT OF [...] Lymph 0.26 Performed By: #### L100.0100 #### [facility] [address] [place], [place], [address] COMPREHENSIVE METABOLIC Collected: 10/19/2017 Status: F Source: SUS[place] [facility] 9:30 AM [facility] TYPE CODE TESTS RESULT OUT OF [...] GAP 8 Performed By: #### L500.4050 #### [facility] [address] [place], [address] LACTIC ACID Collected: 10/19/2017 Status: F Source: [place]US[place] 9:30 AM [facility] Order Comment: Yes/No query for Sepsis Lactate Rule Y TYPE CODE TESTS RESULT OUT OF RANGE REFERENCE UNITS LAB L503.6005 0.4-2.0 mmol/L Normal LACTIC ACID 1.0 Performed By: #### L503.6005 #### [facility] [address] [place], [address] CHEST 1 VIEW Observed: 10/19/2017 Status: F Source: CORONA (PORTABLE) 9:00 AM [facility] REPOSIT[facility] Imaging Services [address] [place] [address] Chest 1 View (Portable) MR#: [id number] Acct: [id number] Name: VEE HYATT Rep #: [id number] : 1940 F 76 From: Fan Benavidez MD PCP: Jose L Valenzuela MD Status: REG ER Study: Chest 1 View (Portable) Date of Exam: 10/19/17 Exam# [id number] Ordering Dr: Jose Guadalupe Hernandez MD STUDY: [...] There is borderline cardiomegaly. Normal mediastinum and quinton. Normal visualized pulmonary arteries. There is atherosclerotic [...] Fan Benavidez MD at 9:26 EST Tel [phone], Service support , CC: Jose Guadalupe Hernandez; Jose L Valenzuela MD Energy Administrator: Signed ABDOMEN/PELVIS WITHOUT Observed: 10/19/2017 Status: F Source: COR[place] CONT 9:00 AM [facility] REPOSITORY [facility] Imaging Services [address] [place] [address] Abdomen/Pelvis without Cont MR#: [id number] Acct: [id number] Name: VEE HYATT Rep #: [id number] : 1940 F 76 From: Oren Monk DO PCP: Jose L Valenzuela MD Status: REG ER Study: Abdomen/Pelvis without Cont Date of Exam: 10/19/17 Exam# [id number] Ordering Dr: Jose Guadalupe Hernandez MD STUDY: [...] Jose Guadalupe Hernandez; Jose L Valenzuela MD Energy Administrator: Signed CR-CHEST 1 VIEW Observed: 10/19/2017 Status: F Source: JUAREZ (PORTABLE) IMPORT 12:00 AM [facility] REPOSITORY Images were obtained outside of [facility] [id number] CT-ABDOMEN/PELVIS WITHOUT Observed: 10/19/2017 Status: F Source: UJAREZ CONT IMPORT 12:00 AM [facility] REPOSITORY Images were obtained outside of [facility] [id number] CT-CHEST WITHOUT Observed: 10/19/2017 Status: F Source: JU[place]Z CONTRAST IMPORT 12:00 AM [facility] REPOSITORY Images were obtained outside of [facility] [id number] ABD INC DECUB Observed: 10/17/2017 Status: F Source: SUS[place] AND/OR ERECT 2:20 PM [facility] REPOSITORY [facility] Imaging Services [address] [facility] [place] [place] [address] Abd Inc Decub and/or Erect MR#: [id number] Acct: [id number] Name: VEE HYATT Rep #: [id number] : 1940 F 76 From: Guzman Parmar DO PCP: Jose L Valenzuela MD Status: REG CLI Study: Abd Inc Decub and/or Erect Date of Exam: 10/17/17 Exam# [id number] Ordering Dr: Jose L Valenzuela MD STUDY: [...] Guzman Parmar DO at 18:58 EST Tel [phone], Service support , CC: Jose L Valenzuela MD Energy Administrator: Signed ALLERGIES ALLERGIES DATE TYPE / CODE NAME / CODE REACTION SEVERITY SOURCE 10/09/2018 Drug hydrocodone/F006 Nausea Unknown [facility]/416 926061(RXNO) [facility] 535195([facility] Repository ED CT) 10/09/2018 Drug acetaminophen/F0 Nausea Unknown [place] [facility]/416 54252438(RXNO) [facility] 235633([facility] Repository ED CT) 10/09/2018 Drug sulfamethoxazole Nausea Unknown [facility] Allergy/416 /[id number]([facility] 182958([facility]) Repository ED CT) 10/09/2018 Drug trimethoprim/F00 Nausea Unknown [place] [facility] Allergy/017 3505856(RXNO) [facility] 592810([facility] Repository ED CT) 09/07/2018 Drug No Known Unknown [place] [facility] Allergy/416 Allergies/B22672 Hospital 362114(SNOM 0388(RXNORM) Repository ED CT) Drug NO KNOWN [facility] Class/61957 ALLERGIES Other [place] 1003(SNOMED Repository CT) NG/10254383 NO KNOWN [facility] 6(SNOMED ALLERGIES Health [facility] CT) Repository ENCOUNTERS ENCOUNTERS ADMIT/DISCHARGE ACCOUNT NUMBER ADMITTING ENCOUNTER LOCATION SOURCE CLASS 10/09/2018/10/09/19 [id number] Emergency [place] [facility] ding:ED Repository 09/12/2018/09/28/19 [id number] Perez Moseley Chi Inpatient [place] 19 Encounter [facility] ding:TCURoom Repository : [id number]: 1 09/09/2018/09/12/20 [id number] [place], Inpatient [place] 18 [place] Encounter [facility] ding:EO6Vakp Repository : [id number]: 1 09/09/2018 [id number] Jade, Ambulatory BMSBuilding: [place] BMS.[facility] Repository 09/09/2018 [id number] Tereletsky, Ambulatory BMSBuilding: [place] BMS.[facility] Repository 09/09/2018 [id number] Tere[place]sky, Ambulatory BMSBuilding: [place] BMS.[facility] Repository 09/09/2018 [id number] [place], Ambulatory BMSBuilding: [place] BMS.[facility] Repository 09/07/2018/09/07/20 [id number] Emergency [place] 18 [facility] ding:ED Repository 09/07/2018/09/07/20 [id number] Ambulatory BMSBuilding: [place] 18 BMS.CF.[facility] Repository 05/01/2018 [id number] Ambulatory [facility] ding:MFPLAB Repository 01/24/2018 [id number] Ambulatory [facility] ding:MFPLAB Repository 01/01/2018/01/04/20 [id number] Ambulatory [address] Repository 01/01/2018/01/02/20 [id number] Ambulatory [address] Repository 01/01/2018/04/10 [id number] Ambulatory [place] [facility] Main [place] Repository 12/31/2017 [id number] Ambulatory [place] ding:MFPLAB Repository 11/03/2017/11/04/19 [id number] Emergency [address] ding:ED Repository 11/03/2017/11/17/19 [id number] Perez Moseley Chi Inpatient [place] 18 Encounter [facility] ding:TCURoom Repository : QCO66Lmk: 1 10/26/2017/11/03/19 [id number] AWENDER, Inpatient Juarez 18 RAIZA S Encounter [facility] Other [place] Repository 10/26/2017/11/03/19 [id number] AWENDER, H S Inpatient SCRON [facility] 18 Encounter [facility] MEDICAL Repository CENTERBuildi nARoom: 5209Bed: 10/26/2017 [id number] Jade, Ambulatory BMSBuilding: [place] BMS..[facility] Repository 10/26/2017 [id number] Jade, Ambulatory BMSBuilding: [place] BMS.[facility] Repository 10/26/2017/10/26/19 [id number] Jade, Ambulatory [address] ding:EI8Mgmb Repository : XJ129Bnr: 1 10/20/2017/10/20/19 [id number] Ambulatory BMSBuilding: [place] 18 [facility] Repository 10/20/2017/10/20/19 [id number] Ambulatory BMSBuilding: [place] 18 [facility] Repository 10/19/2017/10/19/19 [id number] Jade, Emergency [address] ding:FO3Zaod Repository : FV402Vin: 1 10/19/2017 [id number] Jade, Ambulatory BMSBuilding: [place] BMS.[facility] Repository 10/19/2017 [id number] Jade, Ambulatory BMSBuilding: [place] BMS.[facility] Repository 10/17/2017 [id number] Ambulatory [facility] ding:MTRAD Repository PAYERS PAYERS ENCOUNTER GUARANTOR PAYER SUBSCRIBER SOURCE 10/09/2018 VEELacho [id number] Primary VEE A LANCEDOB: [place] [id number] [address]96Eyq: (330) OPolicy Number: Repository [phone] () [id number] Date:5672-80-90EA [address] [place] [address]TD: 10/09/2018 Secondary NOT GIVENUNK [place] Insurance:SELF PAY [facility] Number: Effective Repository Date:2018-10-09 09/12/2018 VEE A [id number] Primary VEE A LANCEDOB: [place] Insurance:[place] [id number] Clinic [address]99Gjh: (330) [facility] [phone] () [id number] Date:4708-23-58TV [address] [address]TC: 09/12/2018 Secondary NOT GIVENUNK [place] Insurance:SELF PAY [facility] Number: Effective Repository Date:2018-09-12 09/09/2018 VEE Maggy [id number] Primary VEE A LANCEDOB: [place] Insurance[place] [id number] Clinic [address]Lrx: (330) [facility] [phone] () [id number] Date:0167-16-02JA [address] [address]EZ: 09/09/2018 Secondary NOT GIVENUNK [place] Insurance:SELF PAY [facility] Number: Effective Repository Date:2018-09-09 09/09/2018 VEE A [id number] Primary VEE A LANCEDOB: [place] Insurance[place] [id number] Clinic [address]Cec: (330) OPolicy Number: Repository [phone] () [id number] Date:6164-11-48FB [address] [place] [address]EC: 09/09/2018 Secondary NOT GIVENUNK [place] Insurance:SELF PAY [facility] Effective Repository Date:2018-09-09 09/09/2018 VEE A [id number] Primary VEE A LANCEDOB: [place] Insurance:[place] [id number] Clinic [address]15Qaq: (330) OPolicy Number: Repository [phone] () [id number] Date:4692-91-24FA [facility] [address] [place] [address]KS: 09/09/2018 Secondary NOT GIVENUNK [place] Insurance:SELF PAY [facility] Number: Effective Repository Date:2018-09-09 09/09/2018 VEE A [id number] Primary VEE A LANCEDOB: [place] Insurance:[place] [id number] Clinic 588[address]Iji: (330) OPolicy Number: Repository [phone] () [id number] Date:1318-27-20QX [facility] [address] [place] [address]AG: 09/09/2018 Secondary NOT GIVENUNK [place] Insurance:SELF PAY [facility] Number: Effective Repository Date:2018-09-09 09/09/2018 VEE A [id number] Primary VEE A LANCEDOB: [place] Insurance:[place] [id number] Clinic [address]Fqy: (330) OPolicy Number: Repository [phone] () [id number] Date:4996-17-18GX [address] [address]FM: 09/09/2018 Secondary NOT GIVENUNK [place] Insurance:SELF PAY [facility] Number: Effective Repository Date:2018-09-09 09/07/2018 VEE A [id number] Primary VEE A LANCEDOB: [place] Insurance[place] [id number] [id number]: (330) OPolicy Number: Repository [phone] () [id number] Date:6772-69-92KC [address] [address]AS: 09/07/2018 Secondary NOT GIVENUNK [place] Insurance:SELF PAY [facility]: Effective Repository Date:2018-09-07 09/07/2018 VEE A [id number] Primary VEE A LANCEDOB: [place] Insurance[place] [id number] [id number]: (245) OPolicy Number: Repository [phone] () [id number] Date:4238-79-10UB [address] [address]XQ: 09/07/2018 Secondary NOT GIVENUNK [place] Insurance:SELF PAY [facility] Number: Effective Repository Date:2018-09-07 05/01/2018 Vee A [id number] Primary VEE A LANCEDOB: [place] Insurance[place] [id number] [place]ille [id number]: (330) OPolicy Number: Repository [phone] () [id number] Date:0381-90-19YZ [address] [address]AP: 05/01/2018 Secondary NOT GIVENUNK [place] Insurance:SELF PAY [facility] Number: Effective Repository Date:2018-05-01 01/24/2018 Vee A [id number] Primary VEE A LANCEDOB: [place] Insurance:[place] [id number] [place] [id number]: (330) OPolicy Number: Repository [phone] () [id number] Date:3204-72-60JN [address] [address]BW: 01/24/2018 Secondary NOT GIVENUNK [place] Insurance:SELF PAY [facility] Number: Effective Repository Date:2018-01-24 12/31/2017 Vee [id number] Primary VEE A LANCEDOB: [place] Insurance:[place] [id number] [facility] [address]Mdt: (330) [facility] [phone] () [id number] Date:9045-35-65UU [address] [place] [address]PI: 12/31/2017 Secondary NOT GIVENUNK [place] Insurance:SELF PAY [facility] Number: Effective Repository Date:2017-12-31 11/03/2017 Vee Winter [id number] Primary VEE A LANCEDOB: [place] Insurance:[place] [id number] [facility] [address]Npc: (330) OPolicy Number: Repository [phone] () [id number] Date:3688-75-20XR [facility] [address] [place] [address]NN: 11/03/2017 Secondary NOT GIVENUNK [place] Insurance:SELF PAY [facility] Number: Effective Repository Date:2017-11-03 11/03/2017 Vee Winter [id number] Primary VEE A LANCEDOB: [place] Insurance:[place] [id number] [facility] [address]Wej: (530) OPolicy Number: Repository [phone] () [id number] Date:3247-93-31OU [facility] [address] [address]SQ: 11/03/2017 Secondary NOT GIVENUNK [place] Insurance:SELF PAY [facility] Hospital Number: Effective Repository Date:2017-11-03 10/26/2017 VEE A LANCEDOB: Primary VEE A LANCEDOB: [facility] [id number] Insurance:[facility] [id number] Rep[facility] [place], [place] Number: [id number]: [phone] [id number] [phone] () Date: 10/26/2017 Vee A [id number] Primary VEE A LANCEDOB: [place] Insurance:[place] [id number] [address]Hub: (173) [facility] [phone] () [id number] Date:7928-10-40SX [address] [place] [address]QL: 10/26/2017 Secondary NOT GIVENUNK [place] Insurance:SELF PAY [facility] Number: Effective Repository Date:2017-10-26 10/26/2017 Vee A [id number] Primary VEE A LANCEDOB: [place] Insurance[place] [id number] Health [facility] [address]Uev: (330) [facility] Number: Repository [phone] () [id number] Date:6425-86-99FT [address] [address]XF: 10/26/2017 Secondary NOT GIVENUNK [place] Insurance:SELF PAY [facility] Hospital Number: Effective Repository Date:2017-10-26 10/26/2017 Vee A [id number] Primary VEE A LANCEDOB: [place] Insurance:[place] [id number] 16505Rxi: (330) [facility] [phone] () [id number] Date:6647-02-69WH [address] [address]EI: 10/26/2017 Secondary NOT GIVENUNK [place] Insurance:SELF PAY [facility] Hospital Number: Effective Repository Date:2017-10-25 10/20/2017 Vee A [id number] Primary VEE A LANCEDOB: [place] Insurance:[place] [id number] [address]Cdr: (330) [facility] [phone] () [id number] Date:3810-23-61UO [address] [address]YJ: 10/20/2017 Secondary NOT GIVENUNK [place] Insurance:SELF PAY [facility] Number: Effective Repository Date:2017-10-20 10/20/2017 Vee A [id number] Primary VEE A LANCEDOB: [place] [id number] [address]Kyf: (266) [facility] [phone] () [id number] Date:9704-92-97TA [address] [address]XX: 10/20/2017 Secondary NOT GIVENUNK [place] Insurance:SELF PAY [facility] Number: Effective Repository Date:2017-10-20 10/19/2017 Vee A [id number] Primary VEE A LANCEDOB: [place] [id number] Health [facility] [address]62Hbl: (330) [facility] [phone] () [id number] Date:6333-56-21XW [address]CJ[address] [place] [address]DU: 10/19/2017 Secondary NOT GIVENUNK [place] Insurance:SELF PAY [facility] Number: Effective Repository Date:2017-10-19 10/19/2017 Vee A [id number] Primary VEE A LANCEDOB: [place] [id number] Health [facility] [address]Vxy: (330) OPolicy Number: Repository [phone] () [id number] Date:6682-52-13MX [address] [address]ZW: 10/19/2017 Secondary NOT GIVENUNK [place] Insurance:SELF PAY [facility] Number: Effective Repository Date:2017-10-19 10/19/2017 Vee A [id number] Primary VEE A LANCEDOB: [place] Insurance:[place] [id number] Health [facility] 386[address]Kgv: (737) OPolicy Number: Repository [phone] () [id number] Date:7223-68-21RH [facility] [address] [place] [address]FQ: 10/19/2017 Secondary NOT GIVENUNK [place] Insurance:SELF PAY [facility] Number: Effective Repository Date:2017-10-19 10/17/2017 Vee A [id number] Primary VEE A LANCEDOB: [place] [id number] Health System [facility] [address]Bfi: (330) OPolicy Number: Repository [phone] () [id number] Date:0639-75-37CC [address] [place] [address]IY: 10/17/2017 Secondary NOT GIVENUNK [place] Insurance:SELF PAY [facility] Hospital Number: Effective Repository Date:2017-10-17
== END 2018-09-12 15:38 | disposition skilled nursing facility (03) | DRG 690 ==
LOC: ED 12:10 → MS3 14:27
PROVIDERS: Admitting Provider Internal Medicine; Emergency Provider Emergency Medicine; Family Provider Family Medicine; PCP Family Medicine; Referring Provider Internal Medicine; Visit Provider Internal Medicine
DX: N30.00 Acute cystitis without hematuria (principal); G93.49 Other encephalopathy; I50.32 Chronic diastolic (congestive) heart failure; E87.1 Hypo-osmolality and hyponatremia; E86.0 Dehydration; B96.89 Other specified bacterial agents as the cause of diseases classified elsewhere; I11.0 Hypertensive heart disease with heart failure; R09.02 Hypoxemia; E78.5 Hyperlipidemia, unspecified; K44.9 Diaphragmatic hernia without obstruction or gangrene; I89.0 Lymphedema, not elsewhere classified; Z23 Encounter for immunization; I25.10 Atherosclerotic heart disease of native coronary artery without angina pectoris; E11.9 Type 2 diabetes mellitus without complications; K21.9 Gastro-esophageal reflux disease without esophagitis; Z79.82 Long term (current) use of aspirin; Z79.899 Other long term (current) drug therapy
CPT/HCPCS: 36415; 71045; 80048; 80053; 81001; 83605; 83735; 85025; 85027; 85610; 85730; 87040; 87077; 87086; 87088; 87186; 93005; 93971; 94640; 96365; 96375; 97162; 97165; 97530; 99284; 99285; J7030; 90686; A4216; J2405

== ENCOUNTER 2018-09-12 15:53 | Inpatient (IN) | payer MEDICARE, SELFPAY ==
[2018-09-09 15:48] VITALS: BMI 28.3
[2018-09-12 16:06] VITALS: BP 181/96; PULSE 81; RESP 24; TEMP 36.8; O2SAT 94
--- NOTE | 2018-09-12 16:27 | NURSING ---
PT ARRIVED FROM [facility] VIA BED [id number]
[2018-09-12 17:47] VITALS: BMI 28.5
[2018-09-12 17:48] VITALS: BMI 28.5
--- NOTE | 2018-09-12 19:14 | PCA ---
Answered call light, assisted resident to the bathroom. Resident said she needed to sit for awhile to move her bowels. Asked resident to pull call light string when she was done,resident agreed. About 5-7 minutes later son is upset and came to nurses station looking for this TUBE MACHINE OPERATOR, stating that I left his mother on the toilet. Explained that his mother (Vee) has been using call light and calling for us since she has been here. TUBE MACHINE OPERATOR Elisabeth into room to assist resident. RN's and TALENT ACQUISITION SPECIALIST's aware.
[2018-09-12 20:49] VITALS: PULSE 76; O2SAT 92
[2018-09-12 21:25] VITALS: PULSE 78; RESP 18
[2018-09-12] MEDS: Albuterol 2.5 MG/3 ML VIAL.NEB. INHALATION (21:35)
--- NOTE | 2018-09-12 21:45 | PCM.HP.STD ---
Problem List (1) Encephalopathy Status: Acute (2) UTI (urinary tract infection) Status: Acute (3) Restless leg syndrome Status: Chronic (4) Insomnia Status: Chronic (5) Tinea corporis Status: Chronic (6) Diabetes mellitus Status: Chronic (7) Coronary artery disease Status: Chronic (8) GERD (gastroesophageal reflux disease) Status: Chronic (9) Depression Status: Chronic (10) HLD (hyperlipidemia) Status: Chronic (11) Hyponatremia Status: Chronic Comment: also has chronic mild hyponatremia (12) Dyskinesia, tardive Status: Chronic (13) Brain aneurysm Status: Chronic (14) Hypertension Status: Chronic History of Present Illness Date of Admission: 09/12/18 Chief Complaint: Here for rehabilitation, strengthening, prior to discharge home alone. The patient is a 77 year old Female with below past medical history presented to [facility] Emergency Department 09/09/2018 with confusion. 09/09/2018 Doppler ultrasound left lower extremity negative DVT. 09/09/2018 Chest X-ray stable right elevated hemidiaphragm. Diagnosed with UTI 2 days prior, treated with Bactrim, Opioids. Appetite decreased, vomiting, unable to tolerate Bactrim. Increasing confusion. EKG sinus rhythm, WBC okay, Hemoglobin 11.3, Cr 1.16. Sodium 131. UA positive nitrites. Previous urine culture growing Citrobacter koseri. Gage Meyers given. 09/09/2018 Admit to Hospital. IV Fluids for dehydration. PT/OT for debility. IV Ancef for C. koseri urinary tract infection. Vistaril for sleep. Compression stockings for lymphedema. 09/12/2018 Admit to TCU with debility, here for rehabilitation, strengthening, prior to discharge home alone. Past Medical History Past Medical History (Chronic Problems): Chronic Problems Restless leg syndrome (Chronic) Insomnia (Chronic) Tinea corporis (Chronic) Diaphragmatic hernia (Chronic) Diabetes mellitus (Chronic) Coronary artery disease (Chronic) Obesity (Chronic) GERD (gastroesophageal reflux disease) (Chronic) Hx of appendectomy (Chronic) Benign essential HTN (Chronic) Depression (Chronic) HLD (hyperlipidemia) (Chronic) Overweight (BMI 25.0-29.9) (Chronic) CAD (coronary artery disease) (Chronic) Diabetes mellitus, type II (Chronic) Hyponatremia (Chronic) also has chronic mild hyponatremia Traumatic closed nondisplaced fracture of neck of left femur (Chronic) Status post closed reduction with internal fixation (Chronic) left femur 06/22, Dr Spears, [facility] Tinea unguium (Chronic) Dyskinesia, tardive (Chronic) Brain aneurysm (Chronic) Hypertension (Chronic) Diabetic neuropathy (Chronic) Allergies acetaminophen [From [place]] Adverse Reaction (Verified 09/11/18 09:12) Nausea hydrocodone [From [place]] Adverse Reaction (Verified 09/11/18 09:12) Nausea sulfamethoxazole [From Bactrim] Adverse Reaction (Verified 09/11/18 09:11) Nausea trimethoprim [From Bactrim] Adverse Reaction (Verified 09/11/18 09:11) Nausea Home Medications: Ambulatory Orders Medication Instructions Recorded Fluoxetine [Prozac] 60 mg PO DAILY 03/17/17 Lorazepam [Ativan] 1 mg PO BID 03/17/17 Losartan Potassium 50 mg PO DAILY 03/17/17 Pantoprazole Sodium [Protonix] 20 mg PO DAILY 03/17/17 Pramipexole Di-HCl [Pramipexole 0.75 mg PO QHS 03/17/17 Dihydrochloride] Simvastatin 40 mg PO QHS 03/17/17 Minoxidil [Loniten] 2.5 mg PO BID 10/19/17 Aspirin [Aspirin, Baby] 81 mg PO DAILY@0800 09/09/18 Clonidine HCl [Catapres] 0.05 mg PO BID 09/09/18 Nystatin Powder [Mycostatin Powder] 1 applic TOPICAL BID PRN 09/09/18 Acetaminophen [Tylenol Tablet] 650 mg PO Q6H PRN PRN tablet 09/12/18 Albuterol Aerosols [Ventolin 2.5 mg INHALATION Q4H PRN PRN 09/12/18 Aerosols] vial.neb. 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 Denies: Abdominal Pain, Nausea, Vomiting Genitourinary: Denies: Dysuria Musculoskeletal: Denies: Joint Pain, Joint Tenderness Skin: Denies: Rash, Wounds Neurological: Denies: Numbness, Tingling, Focal weakness Psychiatric: Denies: Anxiety, Depression, Homicidal Ideations, Suicidal Ideations Hematologic/ Lymphatic: Denies: Easy Bruising, Easy Bleeding VTE Information - Inpt Only VTE Present on Admission: No VTE Mechan Device Prophylaxis: Knee High DISHA Hose VTE Pharm Prophylaxis ordered?: Yes Patient Problems: Active and Suspected Problems Encephalopathy (Acute) UTI (urinary tract infection) (Acute) - Physical Exam General: Alert, Oriented x3, Cooperative HEENT: Atraumatic, PERRLA, EOMI, Normocephalic Neck: Supple, No JVD, Negative Carotid Bruits Lungs: Clear to auscultation, Normal air movement Cardiovascular: Regular rate, No murmurs Abdomen: Bowel Sounds Present, Soft, Non Tender Extremities: No edema, Capillary Refill Less than 3 Seconds Skin: No rashes, No breakdown Musculoskeletal: No Tenderness to Palpation of Joints or Extremities Neurological: Cranial nerves II-XII grossly intact Psych/Mental Status: Normal Affect, Appropriate Vital Signs Temp Pulse Resp BP Pulse Ox 98.2 F 78 18 181/96 H 92 09/12/18 16:06 09/12/18 21:25 09/12/18 21:25 09/12/18 16:06 09/12/18 20:49 Oxygen Flow Rate (L/min) 2 Oxygen Delivery Method Nasal Cannula Weight: 75.296 kg Body Mass Index (BMI) 28.5 Finger Stick Blood Glucose 176 Intake and Output for Last 24 Hours 09/10/18 09/11/18 09/12/18 23:59 23:59 23:59 Intake Total 420 / 420 Balance 420 / 420 Assessment/Plan All Active Problems Encephalopathy (Acute) UTI (urinary tract infection) (Acute) Confusion (Acute) Influenza (Resolved) Takotsubo syndrome (Resolved) Gastroenteritis (Resolved) Hypoxia (Acute) Generalized weakness (Acute) Abdominal pain (Resolved) Diarrhea (Resolved) 77 year old female with below past medical history hospitalized for encephalopathy secondary to C. koseri UTI, complicated by dehydration, insomnia, admitted to TCU with debility, here for rehabilitation, strengthening, prior to discharge home alone. Debility - PT/OT. Pain - Tylenol 1000MG Q6H PRN mild pain. Bowel - Miralax 17GM daily, Senna/colace 2 tablets BID, Dulcolax 10MG daily PRN, Soap Suds Enema for clean out. Pneumonia vaccination - Administer Prevnar 13 and/or Pneumovax 23 as necessary. DVT prophylaxis - Lovenox 40MG SC daily. Shortness of breath - Albuterol 2.5MG Q4H PRN. Coronary Artery Disease - Aspirin 81MG daily. Hyperlipidemia - Atorvastatin 20MG QHS. C. koseri UTI - Keflex 500MG BID thru 09/17/2018. Hypertension - Clonidine 0.05MG BID, Minoxidil 2.5MG BID, Losartan 50MG daily. Nutrition - Ensure Enlive 120ML 4x/day. Depression - Fluoxetine 60MG daily, resident doing well with chronic assisted use, GDR clinically contraindicated. Insomnia - Melatonin 10MG QHS, Doxepin 25MG QHS PRN. Anxiety - Lorazepam 1MG BID, resident doing well with chronic assisted use, GDR clinically contraindicated. Tinea Corporis - Nystatin powder BID PRN. GERD - Pantoprazole 20MG daily, consider H2 [place] for better safety profile. Restless Leg Syndrome - Mirapex 0.75MG QHS.
--- NOTE | 2018-09-12 21:52 | HP.PCM_ITS ---
Problem List (1) Encephalopathy Status: Acute (2) UTI (urinary tract infection) Status: Acute (3) Restless leg syndrome Status: Chronic (4) Insomnia Status: Chronic (5) Tinea corporis Status: Chronic (6) Diabetes mellitus Status: Chronic (7) Coronary artery disease Status: Chronic (8) GERD (gastroesophageal reflux disease) Status: Chronic (9) Depression Status: Chronic (10) HLD (hyperlipidemia) Status: Chronic (11) Hyponatremia Status: Chronic Comment: also has chronic mild hyponatremia (12) Dyskinesia, tardive Status: Chronic (13) Brain aneurysm Status: Chronic (14) Hypertension Status: Chronic History of Present Illness Date of Admission: 09/12/18 Chief Complaint: Here for rehabilitation, strengthening, prior to discharge home alone. The patient is a 77 year old Female with below past medical history presented to [facility] Emergency Department 09/09/2018 with confusion. 09/09/2018 Doppler ultrasound left lower extremity negative DVT. 09/09/2018 Chest X-ray stable right elevated hemidiaphragm. Diagnosed with UTI 2 days prior, treated with Bactrim, Opioids. Appetite decreased, vomiting, unable to tolerate Bactrim. Increasing confusion. EKG sinus rhythm, WBC okay, Hemoglobin 11.3, Cr 1.16. Sodium 131. UA positive nitrites. Previous urine culture growing Citrobacter koseri. Gage Meyers given. 09/09/2018 Admit to Hospital. IV Fluids for dehydration. PT/OT for debility. IV Ancef for C. koseri urinary tract infection. Vistaril for sleep. Compression stockings for lymphedema. 09/12/2018 Admit to TCU with debility, here for rehabilitation, strengthening, prior to discharge home alone. Past Medical History Past Medical History (Chronic Problems): Chronic Problems Restless leg syndrome (Chronic) Insomnia (Chronic) Tinea corporis (Chronic) Diaphragmatic hernia (Chronic) Diabetes mellitus (Chronic) Coronary artery disease (Chronic) Obesity (Chronic) GERD (gastroesophageal reflux disease) (Chronic) Hx of appendectomy (Chronic) Benign essential HTN (Chronic) Depression (Chronic) HLD (hyperlipidemia) (Chronic) Overweight (BMI 25.0-29.9) (Chronic) CAD (coronary artery disease) (Chronic) Diabetes mellitus, type II (Chronic) Hyponatremia (Chronic) also has chronic mild hyponatremia Traumatic closed nondisplaced fracture of neck of left femur (Chronic) Status post closed reduction with internal fixation (Chronic) left femur 06/22, Dr Spears, [facility] Tinea unguium (Chronic) Dyskinesia, tardive (Chronic) Brain aneurysm (Chronic) Hypertension (Chronic) Diabetic neuropathy (Chronic) Allergies acetaminophen [From [place]] Adverse Reaction (Verified 09/11/18 09:12) Nausea hydrocodone [From [place]] Adverse Reaction (Verified 09/11/18 09:12) Nausea sulfamethoxazole [From Bactrim] Adverse Reaction (Verified 09/11/18 09:11) Nausea trimethoprim [From Bactrim] Adverse Reaction (Verified 09/11/18 09:11) Nausea Home Medications: Ambulatory Orders Medication Instructions Recorded Fluoxetine [Prozac] 60 mg PO DAILY 03/17/17 Lorazepam [Ativan] 1 mg PO BID 03/17/17 Losartan Potassium 50 mg PO DAILY 03/17/17 Pantoprazole Sodium [Protonix] 20 mg PO DAILY 03/17/17 Pramipexole Di-HCl [Pramipexole 0.75 mg PO QHS 03/17/17 Dihydrochloride] Simvastatin 40 mg PO QHS 03/17/17 Minoxidil [Loniten] 2.5 mg PO BID 10/19/17 Aspirin [Aspirin, Baby] 81 mg PO DAILY@0800 09/09/18 Clonidine HCl [Catapres] 0.05 mg PO BID 09/09/18 Nystatin Powder [Mycostatin Powder] 1 applic TOPICAL BID PRN 09/09/18 Acetaminophen [Tylenol Tablet] 650 mg PO Q6H PRN PRN tablet 09/12/18 Albuterol Aerosols [Ventolin 2.5 mg INHALATION Q4H PRN PRN 09/12/18 Aerosols] vial.neb. 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 Denies: Abdominal Pain, Nausea, Vomiting Genitourinary: Denies: Dysuria Musculoskeletal: Denies: Joint Pain, Joint Tenderness Skin: Denies: Rash, Wounds Neurological: Denies: Numbness, Tingling, Focal weakness Psychiatric: Denies: Anxiety, Depression, Homicidal Ideations, Suicidal Ideat ions Hematologic/ Lymphatic: Denies: Easy Bruising, Easy Bleeding VTE Information - Inpt Only VTE Present on Admission: No VTE Mechan Device Prophylaxis: Knee High DISHA Hose VTE Pharm Prophylaxis ordered?: Yes Patient Problems: Active and Suspected Problems Encephalopathy (Acute) UTI (urinary tract infection) (Acute) - Physical Exam General: Alert, Oriented x3, Cooperative HEENT: Atraumatic, PERRLA, EOMI, Normocephalic Neck: Supple, No JVD, Negative Carotid Bruits Lungs: Clear to auscultation, Normal air movement Cardiovascular: Regular rate, No murmurs Abdomen: Bowel Sounds Present, Soft, Non Tender Extremities: No edema, Capillary Refill Less than 3 Seconds Skin: No rashes, No breakdown Musculoskeletal: No Tenderness to Palpation of Joints or Extremities Neurological: Cranial nerves II-XII grossly intact Psych/Mental Status: Normal Affect, Appropriate Vital Signs Temp Pulse Resp BP Pulse Ox 98.2 F 78 18 181/96 H 92 09/12/18 16:06 09/12/18 21:25 09/12/18 21:25 09/12/18 16:06 09/12/18 20:49 Oxygen Flow Rate (L/min) 2 Oxygen Delivery Method Nasal Cannula Weight: 75.296 kg Body Mass Index (BMI) 28.5 Finger Stick Blood Glucose 176 Intake and Output for Last 24 Hours 09/10/18 09/11/18 09/12/18 23:59 23:59 23:59 Intake Total 420 / 420 Balance 420 / 420 Assessment/Plan All Active Problems Encephalopathy (Acute) UTI (urinary tract infection) (Acute) Confusion (Acute) Influenza (Resolved) Takotsubo syndrome (Resolved) Gastroenteritis (Resolved) Hypoxia (Acute) Generalized weakness (Acute) Abdominal pain (Resolved) Diarrhea (Resolved) 77 year old female with below past medical history hospitalized for encephalopathy secondary to C. dl UTI, complicated by dehydration, insomnia, admitted to TCU with debility, here for rehabilitation, strengthening, prior to discharge home alone. * Debility - PT/OT. * Pain - Tylenol 1000MG Q6H PRN mild pain. * Bowel - Miralax 17GM daily, Senna/colace 2 tablets BID, Dulcolax 10MG daily PRN, Soap Suds Enema for clean out. * Pneumonia vaccination - Administer Prevnar 13 and/or Pneumovax 23 as necessary. * DVT prophylaxis - Lovenox 40MG SC daily. * Shortness of breath - Albuterol 2.5MG Q4H PRN. * Coronary Artery Disease - Aspirin 81MG daily. * Hyperlipidemia - Atorvastatin 20MG QHS. * C. koseri UTI - Keflex 500MG BID thru 09/17/2018. * Hypertension - Clonidine 0.05MG BID, Minoxidil 2.5MG BID, Losartan 50MG daily. * Nutrition - Ensure Enlive 120ML 4x/day. * Depression - Fluoxetine 60MG daily, resident doing well with chronic fci use, GDR clinically contraindicated. * Insomnia - Melatonin 10MG QHS, Doxepin 25MG QHS PRN. * Anxiety - Lorazepam 1MG BID, resident doing well with chronic fci use, GDR clinically contraindicated. * Tinea Corporis - Nystatin powder BID PRN. * GERD - Pantoprazole 20MG daily, consider H2 [place] for better safety profile. * Restless Leg Syndrome - Mirapex 0.75MG QHS.
[2018-09-12] MEDS: LORazepam 1 MG Tablet PO (22:18)
[2018-09-12] MEDS: Pramipexole Di-HCl 0.25 MG Tablet 0.75 MG PO (22:20)
[2018-09-12] MEDS: Atorvastatin Calcium 20 MG Tablet PO (22:20)
[2018-09-12] MEDS: MELATONIN 10 MG TABLET PO (22:20)
[2018-09-12] MEDS: Cephalexin 500 MG Capsule PO (22:20)
[2018-09-12] MEDS: Minoxidil 2.5 MG Tablet PO (22:21)
[2018-09-12] MEDS: cloNIDine HCl 0.1 MG Tablet 0.05 MG PO (22:21)
[2018-09-13] MEDS: Acetaminophen 500 MG Tablet 1000 MG PO (02:16)
[2018-09-13 05:53] LABS: Absolute Lymphocyte Count 1.37 X10^3/ul (0.83-4.51); Absolute Neutrophil Count 6.3 X10^3/uL (2.0-7.7); Basophil# 0.02 X10^3/uL; Basophil% 0.2 % (0-1); Eosinophil# 0.14 X10^3/uL; Eosinophils% 1.7 % (0-5); Hematocrit 33.8 % (37-47); Hemoglobin 11.1 g/dl (12.0-15.0); Lymphocyte # 1.37 X10^3/ul (4.0); Lymphocyte % 16.3 % (19-41); Mean Corp Hgb Conc 32.8 g/gl (32-36); Mean Corpuscular Volume 91.4 fL (81-99); Mean Platelet Vol. 8.6 fl (6.2-12.0); Monocyte# 0.55 X10^3/uL; Monocyte% 6.5 % (0-10); Neutrophil # 6.33 X10^3/uL (2.7-7.7); Neutrophil % 75.1 % (47-70); Platelet Count 282 K/mm3 (150-450); RBC Distribution Width CV 12.9 % (11.6-14.6); RBC Distribution Width SD 42.1 fl (35.1-43.9); White Blood Count 8.4 K/mm3 (4.4-11.0)
[2018-09-13 05:55] LABS: POSITIVE COUNT NO; POSITIVE DIFFERENTIAL NO; POSITIVE MORPHOLOGY NO
[2018-09-13] MEDS: cloNIDine HCl 0.1 MG Tablet 0.05 MG PO ×2 (06:10→16:28)
[2018-09-13] MEDS: Losartan Potassium 50 MG Tablet PO (06:10)
[2018-09-13] MEDS: Cephalexin 500 MG Capsule PO ×2 (06:10→16:28)
[2018-09-13] MEDS: Pantoprazole Sodium 20 MG Tablet PO (06:10)
[2018-09-13] MEDS: FLUoxetine 20 MG Capsule 60 MG PO (06:10)
[2018-09-13] MEDS: Menthol/Lanolin/Calamine/Znox 113 GM Tube 1 APPLIC TOPICAL ×2 (06:11→20:39)
[2018-09-13] MEDS: Minoxidil 2.5 MG Tablet PO ×2 (06:12→16:27)
[2018-09-13 06:15] LABS: Anion Gap 6 (5-15); BUN 11 mg/dL (7-18); BUN/Creat Ratio 15.2 RATIO (10-20); Calcium,Total 9.4 mg/dL (8.5-10.1); Chloride 98 mmol/L (98-107); Creatinine, Serum 0.72 mg/dL (0.55-1.02); EST Glomerular Filtration Rate 82 mL/min (>60); Est Glom Filt Rate - Afr Amer 100 mL/min (>60); Estimated Creatinine Clearance 39.39 ml/min; Glucose 104 mg/dL (74-106); Potassium 4.2 mmol/L (3.5-5.1); Sodium Level 139 mmol/L (136-145)
[2018-09-13] MEDS: Enoxaparin 40 MG/0.4 ML Syringe SC (06:23)
[2018-09-13] MEDS: Polyethylene Glycol 3350 17 GM PACKET PO (06:23)
[2018-09-13] MEDS: Nystatin Powder 15gm Bottle 1 APPLIC TOPICAL ×2 (06:23→20:35)
[2018-09-13] MEDS: Senna/Docusate Sodium 1 Tablet 2 TABLET PO ×2 (06:26→16:27)
[2018-09-13] MEDS: LORazepam 1 MG Tablet PO ×2 (08:02→20:44)
[2018-09-13] MEDS: Aspirin 81 MG TAB.CHEW PO (08:02)
[2018-09-13 09:24] VITALS: PULSE 84; RESP 18; O2SAT 93
--- NOTE | 2018-09-13 14:13 | CASEMGMT ---
Insurance Clinical information sent. Pending continued stay approval. Auth: to be obtained when further days are approved. RYAN DasW, PELLET MACHINE OPERATOR
[2018-09-13 15:45] VITALS: BP 114/66; PULSE 77; RESP 18; TEMP 37; O2SAT 91
[2018-09-13] MEDS: Pramipexole Di-HCl 0.25 MG Tablet 0.75 MG PO (20:39)
[2018-09-13] MEDS: Atorvastatin Calcium 20 MG Tablet PO (20:39)
[2018-09-13] MEDS: MELATONIN 10 MG TABLET PO (20:39)
[2018-09-13] MEDS: Doxepin Hydrochloride 10 MG Capsule 20 MG PO (22:14)
[2018-09-14] MEDS: Pantoprazole Sodium 20 MG Tablet PO (07:06)
[2018-09-14] MEDS: Losartan Potassium 50 MG Tablet PO (07:06)
[2018-09-14] MEDS: FLUoxetine 20 MG Capsule 60 MG PO (07:06)
[2018-09-14] MEDS: Cephalexin 500 MG Capsule PO ×2 (07:06→18:54)
[2018-09-14] MEDS: Minoxidil 2.5 MG Tablet PO ×2 (07:06→18:52)
[2018-09-14] MEDS: Senna/Docusate Sodium 1 Tablet 2 TABLET PO ×2 (07:07→18:53)
[2018-09-14] MEDS: Enoxaparin 40 MG/0.4 ML Syringe SC (07:08)
[2018-09-14] MEDS: cloNIDine HCl 0.1 MG Tablet 0.05 MG PO ×2 (07:14→18:52)
[2018-09-14] MEDS: Menthol/Lanolin/Calamine/Znox 113 GM Tube 1 APPLIC TOPICAL ×2 (07:15→20:48)
[2018-09-14] MEDS: Nystatin Powder 15gm Bottle 1 APPLIC TOPICAL ×2 (07:16→20:50)
[2018-09-14] MEDS: LORazepam 1 MG Tablet PO ×2 (08:40→20:48)
[2018-09-14] MEDS: Aspirin 81 MG TAB.CHEW PO (08:40)
[2018-09-14 15:55] VITALS: BP 126/71; PULSE 72; RESP 18; TEMP 36.7; O2SAT 93
[2018-09-14] MEDS: Pramipexole Di-HCl 0.25 MG Tablet 0.75 MG PO (20:49)
[2018-09-14] MEDS: Doxepin Hydrochloride 10 MG Capsule 20 MG PO (20:50)
[2018-09-14] MEDS: MELATONIN 10 MG TABLET PO (20:51)
[2018-09-14] MEDS: Atorvastatin Calcium 20 MG Tablet PO (20:51)
[2018-09-15 03:13] VITALS: PULSE 74; RESP 18
[2018-09-15] MEDS: Menthol/Lanolin/Calamine/Znox 113 GM Tube 1 APPLIC TOPICAL ×2 (05:10→20:54)
[2018-09-15] MEDS: Losartan Potassium 50 MG Tablet PO (05:10)
[2018-09-15] MEDS: cloNIDine HCl 0.1 MG Tablet 0.05 MG PO ×2 (05:11→18:54)
[2018-09-15] MEDS: Minoxidil 2.5 MG Tablet PO ×2 (05:11→18:56)
[2018-09-15] MEDS: Cephalexin 500 MG Capsule PO ×2 (05:12→18:54)
[2018-09-15] MEDS: Nystatin Powder 15gm Bottle 1 APPLIC TOPICAL ×2 (05:12→20:54)
[2018-09-15] MEDS: FLUoxetine 20 MG Capsule 60 MG PO (05:13)
[2018-09-15] MEDS: Enoxaparin 40 MG/0.4 ML Syringe SC (05:13)
[2018-09-15] MEDS: Pantoprazole Sodium 20 MG Tablet PO (05:13)
[2018-09-15] MEDS: Senna/Docusate Sodium 1 Tablet 2 TABLET PO ×2 (05:14→18:56)
[2018-09-15] MEDS: Albuterol 2.5 MG/3 ML VIAL.NEB. INHALATION (07:30)
[2018-09-15 07:42] VITALS: PULSE 77; RESP 20
[2018-09-15] MEDS: LORazepam 1 MG Tablet PO ×2 (09:04→20:53)
[2018-09-15] MEDS: Aspirin 81 MG TAB.CHEW PO (09:04)
[2018-09-15 10:00] VITALS: PULSE 71; O2SAT 92
[2018-09-15 15:35] VITALS: BP 140/74; PULSE 72; RESP 18; TEMP 36.3; O2SAT 97
[2018-09-15] MEDS: Atorvastatin Calcium 20 MG Tablet PO (20:54)
[2018-09-15] MEDS: Doxepin Hydrochloride 10 MG Capsule 20 MG PO (20:55)
[2018-09-15] MEDS: MELATONIN 10 MG TABLET PO (20:55)
[2018-09-15] MEDS: Pramipexole Di-HCl 0.25 MG Tablet 0.75 MG PO (20:55)
[2018-09-16] MEDS: Nystatin Powder 15gm Bottle 1 APPLIC TOPICAL ×2 (05:17→21:33)
[2018-09-16] MEDS: Menthol/Lanolin/Calamine/Znox 113 GM Tube 1 APPLIC TOPICAL ×2 (05:17→21:20)
[2018-09-16] MEDS: cloNIDine HCl 0.1 MG Tablet 0.05 MG PO ×2 (05:18→17:12)
[2018-09-16] MEDS: Pantoprazole Sodium 20 MG Tablet PO (05:19)
[2018-09-16] MEDS: Losartan Potassium 50 MG Tablet PO (05:19)
[2018-09-16] MEDS: Minoxidil 2.5 MG Tablet PO ×2 (05:19→17:11)
[2018-09-16] MEDS: Cephalexin 500 MG Capsule PO ×2 (05:20→17:11)
[2018-09-16] MEDS: FLUoxetine 20 MG Capsule 60 MG PO (05:20)
[2018-09-16] MEDS: Enoxaparin 40 MG/0.4 ML Syringe SC (05:20)
[2018-09-16 07:10] VITALS: O2SAT 95
[2018-09-16] MEDS: LORazepam 1 MG Tablet PO ×2 (09:05→21:19)
[2018-09-16] MEDS: Aspirin 81 MG TAB.CHEW PO (09:05)
[2018-09-16] MEDS: Acetaminophen 500 MG Tablet 1000 MG PO (09:05)
[2018-09-16] MEDS: Albuterol 2.5 MG/3 ML VIAL.NEB. INHALATION ×2 (09:15→20:47)
[2018-09-16 09:29] VITALS: PULSE 71; RESP 22; O2SAT 95
--- NOTE | 2018-09-16 10:50 | PCM.PN.RX ---
<MakedamookkenJay D - Last Filed: 09/16/18 10:50> Progress Note - Pharmacy Subjective: TCU Admission Objective: Allergies acetaminophen [From [place]] Adverse Reaction (Verified 09/11/18 09:12) Nausea hydrocodone [From [place]] Adverse Reaction (Verified 09/11/18 09:12) Nausea sulfamethoxazole [From Bact[place]] Adverse Reaction (Verified 09/11/18 09:11) Nausea trimethoprim [From Bactrim] Adverse Reaction (Verified 09/11/18 09:11) Nausea Current Medications Generic Name Dose Route Start Last Admin Trade Name Freq PRN Reason Stop Dose Admin Acetaminophen 1,000 mg 09/12/18 22:08 09/16/18 09:05 Tylenol PO 1,000 mg Q6H PRN PRN Administration MILD PAIN (1-3/10) Albuterol Sulfate 2.5 mg 09/12/18 16:21 09/16/18 09:15 Ventolin Aerosols INHALATION 2.5 mg Q4H PRN PRN Administration SOB &/OR WHEEZING Aspirin 81 mg 09/13/18 08:00 09/16/18 09:05 Aspirin, Baby PO 81 mg DAILY@0800 AP Administration Atorvastatin Calcium 20 mg 09/12/18 22:00 09/15/18 20:54 Lipitor PO 20 mg QHS AP Administration Bisacodyl 10 mg 09/12/18 22:07 Dulcolax PO DAILY PRN Constipation Calamine/Phenol 1 applic 09/13/18 06:00 09/16/18 05:17 Calmoseptine Ointment TOPICAL 1 applicatio 0600,2200 AP Administration Protocol Cephalexin 500 mg 09/12/18 18:00 09/16/18 05:20 Keflex PO 09/17/18 06:01 500 mg BID AP Administration Clonidine 0.05 mg 09/12/18 18:00 09/16/18 05:18 Catapres PO 0.05 mg BID AP Administration Doxepin HCl 20 mg 09/12/18 22:06 09/15/18 20:55 Sinequan PO 20 mg QHS PRN Administration INSOMNIA Enoxaparin Sodium 40 mg 09/13/18 06:00 09/16/18 05:20 Lovenox SC 40 mg DAILY@0600 AP Administration Fluoxetine HCl 60 mg 09/13/18 06:00 09/16/18 05:20 Prozac PO 60 mg DAILY AP Administration Lorazepam 1 mg 09/12/18 21:00 09/16/18 09:05 Ativan PO 1 mg AP Administration Losartan Potassium 50 mg 09/13/18 06:00 09/16/18 05:19 Cozaar PO 50 mg DAILY AP Administration Melatonin 10 mg 09/12/18 22:00 09/15/18 20:55 Melatonin PO 10 mg QHS AP Administration Minoxidil 2.5 mg 09/12/18 18:00 09/16/18 05:19 Loniten PO 2.5 mg BID AP Administration Multi-Ingredient Cream 1 applic 09/13/18 06:00 09/16/18 05:17 Eucerin TOPICAL 1 applicatio 599,2199 [facility] Administration Protocol Nutritional Formula (Lactose Free) 120 ml 09/12/18 17:59 09/16/18 05:17 Ensure Enlive PO 120 ml 4X/DAY AP Administration Nystatin 1 applic 09/13/18 06:00 09/16/18 05:17 Mycostatin Powder TOPICAL 1 applicatio 599,2199 [facility] Administration Protocol Pantoprazole Sodium 20 mg 09/13/18 06:00 09/16/18 05:19 Protonix PO 20 mg DAILY [facility] Administration Polyethylene Glycol 17 gm 09/13/18 06:00 09/16/18 05:20 Miralax PO Not Given DAILY [facility] Pramipexole Dihydrochloride 0.75 mg 09/12/18 22:00 09/15/18 20:55 Mirapex PO 0.75 mg QHS [facility] Administration Senna/Docusate Sodium 2 tablet 09/13/18 06:00 09/16/18 05:20 Senokot-S, Magali-Colace PO Not Given BID [facility] Tuberculin PPD 5 tu 09/20/18 10:00 Tubersol, Aplisol, Ppd ID 09/20/18 10:01 X1 ONE Problem List Encephalopathy (Acute) UTI (urinary tract infection) (Acute) Restless leg syndrome (Chronic) Insomnia (Chronic) Tinea corporis (Chronic) Vital Signs Temp Pulse Resp BP Pulse Ox 97.3 F L 71 22 H 140/74 H 95 09/15/18 15:35 09/16/18 09:29 09/16/18 09:29 09/15/18 15:35 09/16/18 09:29 Oxygen Flow Rate (L/min) 1 Oxygen Delivery Method Nasal Cannula Weight: 75.296 kg Body Mass Index (BMI) 28.5 Finger Stick Blood Glucose 176 Sodium 139 mmol/L (136-145) 09/13/18 05:12 Potassium 4.2 mmol/L (3.5-5.1) 09/13/18 05:12 Chloride 98 mmol/L (98-107) 09/13/18 05:12 Carbon Dioxide 35.0 mmol/L (21.0-32.0) H 09/13/18 05:12 Anion Gap 6 (5-15) 09/13/18 05:12 BUN 11 mg/dL (7-18) 09/13/18 05:12 Creatinine 0.72 mg/dL (0.55-1.02) 09/13/18 05:12 Est GFR (MDRD) Af Amer 100 mL/min (>60) 09/13/18 05:12 Est GFR (MDRD) Non-Af 82 mL/min (>60) 09/13/18 05:12 BUN/Creatinine Ratio 15.2 RATIO (10-20) 09/13/18 05:12 Glucose 104 mg/dL (74-106) 09/13/18 05:12 Assessment/Plan: 1) Pain APAP for mild pain. Continue to monitor prn medication use, daily pain scores. 2) HTN/CAD/HLD Minoxidil, losartan, clonidine, ASA, atorvastatin. Continue to monitor BP/HR, renal function, electrolytes, lipids. 3) ID Cephalexin. Continue to monitor s/s infection. 4) Sleep Melatonin at HS, doxepin prn. Continue to monitor prn medication use, for insomnia. 5) GI Pantoprazole daily. Continue to monitor s/s GI distress. 6) RLS Pramipexole at HS. Continue to monitor for RLS. 7) DVT PPx Enoxaparin daily. Continue to monitor for bleeding/clot. Psychotropic Medications: 8) Depression/Anxiety Fluoxetine, lorazepam twice daily. GDR addressed by physician. Continue to monitor for depression, anxiety. Unnecessary Medications: None Bowel Regimen: 9) Senna/s, PEG, prn bisacodyl. Continue to monitor prn medication use, for constipation/diarrhea. Date of Note:: 09/16/18 - Provider Comments Provider responsibility: Provider responsible to enter orders to implement recommendations <Perez Moseley Chi - Last Filed: 09/16/18 12:47> Progress Note - Pharmacy Subjective: [] Objective: Allergies acetaminophen [From [place]] Adverse Reaction (Verified 09/11/18 09:12) Nausea hydrocodone [From [place]] Adverse Reaction (Verified 09/11/18 09:12) Nausea sulfamethoxazole [From B[facility]] Adverse Reaction (Verified 09/11/18 09:11) Nausea trimethoprim [From Bactrim] Adverse Reaction (Verified 09/11/18 09:11) Nausea Current Medications Generic Name Dose Route Start Last Admin Trade Name Freq PRN Reason Stop Dose Admin Acetaminophen 1,000 mg 09/12/18 22:08 09/16/18 09:05 Tylenol PO 1,000 mg Q6H PRN PRN Administration MILD PAIN (1-3/10) Albuterol Sulfate 2.5 mg 09/12/18 16:21 09/16/18 09:15 Ventolin Aerosols INHALATION 2.5 mg Q4H PRN PRN Administration SOB &/OR WHEEZING Aspirin 81 mg 09/13/18 08:00 09/16/18 09:05 Aspirin, Baby PO 81 mg DAILY@0800 AP Administration Atorvastatin Calcium 20 mg 09/12/18 22:00 09/15/18 20:54 Lipitor PO 20 mg QHS AP Administration Bisacodyl 10 mg 09/12/18 22:07 Dulcolax PO DAILY PRN Constipation Calamine/Phenol 1 applic 09/13/18 06:00 09/16/18 05:17 Calmoseptine Ointment TOPICAL 1 applicatio 0600,2200 AP Administration Protocol Cephalexin 500 mg 09/12/18 18:00 09/16/18 05:20 Keflex PO 09/17/18 06:01 500 mg BID AP Administration Clonidine 0.05 mg 09/12/18 18:00 09/16/18 05:18 Catapres PO 0.05 mg BID AP Administration Doxepin HCl 20 mg 09/12/18 22:06 09/15/18 20:55 Sinequan PO 20 mg QHS PRN Administration INSOMNIA Enoxaparin Sodium 40 mg 09/13/18 06:00 09/16/18 05:20 Lovenox SC 40 mg DAILY@0600 AP Administration Fluoxetine HCl 60 mg 09/13/18 06:00 09/16/18 05:20 Prozac PO 60 mg DAILY AP Administration Lorazepam 1 mg 09/12/18 21:00 09/16/18 09:05 Ativan PO 1 mg AP Administration Losartan Potassium 50 mg 09/13/18 06:00 09/16/18 05:19 Cozaar PO 50 mg DAILY AP Administration Melatonin 10 mg 09/12/18 22:00 09/15/18 20:55 Melatonin PO 10 mg QHS AP Administration Minoxidil 2.5 mg 09/12/18 18:00 09/16/18 05:19 Loniten PO 2.5 mg BID AP Administration Multi-Ingredient Cream 1 applic 09/13/18 06:00 09/16/18 05:17 Eucerin TOPICAL 1 applicatio [phone] [facility] Administration Protocol Nutritional Formula (Lactose Free) 120 ml 09/12/18 17:59 09/16/18 12:08 Ensure Enlive PO 120 ml 4X/DAY AP Administration Nystatin 1 applic 09/13/18 06:00 09/16/18 05:17 Mycostatin Powder TOPICAL 1 applicatio 599,0 [facility] Administration Protocol Pantoprazole Sodium 20 mg 09/13/18 06:00 09/16/18 05:19 Protonix PO 20 mg DAILY [facility] Administration Polyethylene Glycol 17 gm 09/13/18 06:00 09/16/18 05:20 Miralax PO Not Given DAILY [facility] Pramipexole Dihydrochloride 0.75 mg 09/12/18 22:00 09/15/18 20:55 Mirapex PO 0.75 mg QHS [facility] Administration Senna/Docusate Sodium 2 tablet 09/13/18 06:00 09/16/18 05:20 Senokot-S, Magali-Colace PO Not Given BID [facility] Tuberculin PPD 5 tu 09/20/18 10:00 Tubersol, Aplisol, Ppd ID 09/20/18 10:01 X1 ONE Problem List Encephalopathy (Acute) UTI (urinary tract infection) (Acute) Restless leg syndrome (Chronic) Insomnia (Chronic) Tinea corporis (Chronic) Vital Signs Temp Pulse Resp BP Pulse Ox 97.3 F L 71 22 H 140/74 H 95 09/15/18 15:35 09/16/18 09:29 09/16/18 09:29 09/15/18 15:35 09/16/18 09:29 Oxygen Flow Rate (L/min) 1 Oxygen Delivery Method Nasal Cannula Weight: 75.296 kg Body Mass Index (BMI) 28.5 Finger Stick Blood Glucose 176 Sodium 139 mmol/L (136-145) 09/13/18 05:12 Potassium 4.2 mmol/L (3.5-5.1) 09/13/18 05:12 Chloride 98 mmol/L (98-107) 09/13/18 05:12 Carbon Dioxide 35.0 mmol/L (21.0-32.0) H 09/13/18 05:12 Anion Gap 6 (5-15) 09/13/18 05:12 BUN 11 mg/dL (7-18) 09/13/18 05:12 Creatinine 0.72 mg/dL (0.55-1.02) 09/13/18 05:12 Est GFR (MDRD) Af Amer 100 mL/min (>60) 09/13/18 05:12 Est GFR (MDRD) Non-Af 82 mL/min (>60) 09/13/18 05:12 BUN/Creatinine Ratio 15.2 RATIO (10-20) 09/13/18 05:12 Glucose 104 mg/dL (74-106) 09/13/18 05:12 Assessment/Plan: Psychotropic Medications: Unnecessary Medications: Bowel Regimen: - Provider Comments Provider responsibility: Provider responsible to enter orders to implement recommendations Provider Comments to Recommendations by Pharmacy: Agree
--- NOTE | 2018-09-16 10:58 | PHA.CONS_ITS ---
<MakedamookkenJay D - Last Filed: 09/16/18 10:50> Progress Note - Pharmacy Subjective: TCU Admission Objective: Allergies acetaminophen [From [place]] Adverse Reaction (Verified 09/11/18 09:12) Nausea hydrocodone [From [place]] Adverse Reaction (Verified 09/11/18 09:12) Nausea sulfamethoxazole [From B[place]] Adverse Reaction (Verified 09/11/18 09:11) Nausea trimethoprim [From Bact[place]] Adverse Reaction (Verified 09/11/18 09:11) Nausea Current Medications Generic Name Dose Route Start Last Admin Trade Name Freq PRN Reason Stop Dose Admin Acetaminophen 1,000 mg 09/12/18 22:08 09/16/18 09:05 Tylenol PO 1,000 mg Q6H PRN PRN Administration MILD PAIN (1-3/10) Albuterol Sulfate 2.5 mg 09/12/18 16:21 09/16/18 09:15 Ventolin Aerosols INHALATION 2.5 mg Q4H PRN PRN Administration SOB &/OR WHEEZING Aspirin 81 mg 09/13/18 08:00 09/16/18 09:05 Aspirin, Baby PO 81 mg DAILY@0800 AP Administration Atorvastatin Calcium 20 mg 09/12/18 22:00 09/15/18 20:54 Lipitor PO 20 mg QHS AP Administration Bisacodyl 10 mg 09/12/18 22:07 Dulcolax PO DAILY PRN Constipation Calamine/Phenol 1 applic 09/13/18 06:00 09/16/18 05:17 Calmoseptine Ointment TOPICAL 1 applicatio 0600,2200 AP Administration Protocol Cephalexin 500 mg 09/12/18 18:00 09/16/18 05:20 Keflex PO 09/17/18 06:01 500 mg BID AP Administration Clonidine 0.05 mg 09/12/18 18:00 09/16/18 05:18 Catapres PO 0.05 mg BID AP Administration Doxepin HCl 20 mg 09/12/18 22:06 09/15/18 20:55 Sinequan PO 20 mg QHS PRN Administration INSOMNIA Enoxaparin Sodium 40 mg 09/13/18 06:00 09/16/18 05:20 Lovenox SC 40 mg DAILY@0600 AP Administration Fluoxetine HCl 60 mg 09/13/18 06:00 09/16/18 05:20 Prozac PO 60 mg DAILY AP Administration Lorazepam 1 mg 09/12/18 21:00 09/16/18 09:05 Ativan PO 1 mg AP Administration Losartan Potassium 50 mg 09/13/18 06:00 09/16/18 05:19 Cozaar PO 50 mg DAILY AP Administration Melatonin 10 mg 09/12/18 22:00 09/15/18 20:55 Melatonin PO 10 mg QHS AP Administration Minoxidil 2.5 mg 09/12/18 18:00 09/16/18 05:19 Loniten PO 2.5 mg BID AP Administration Multi-Ingredient Cream 1 applic 09/13/18 06:00 09/16/18 05:17 Eucerin TOPICAL 1 applicatio 599,2199 [facility] Administration Protocol Nutritional Formula (Lactose Free) 120 ml 09/12/18 17:59 09/16/18 05:17 Ensure Enlive PO 120 ml 4X/DAY AP Administration Nystatin 1 applic 09/13/18 06:00 09/16/18 05:17 Mycostatin Powder TOPICAL 1 applicatio 599,2199 [facility] Administration Protocol Pantoprazole Sodium 20 mg 09/13/18 06:00 09/16/18 05:19 Protonix PO 20 mg DAILY [facility] Administration Polyethylene Glycol 17 gm 09/13/18 06:00 09/16/18 05:20 Miralax PO Not Given DAILY [facility] Pramipexole Dihydrochloride 0.75 mg 09/12/18 22:00 09/15/18 20:55 Mirapex PO 0.75 mg QHS [facility] Administration Senna/Docusate Sodium 2 tablet 09/13/18 06:00 09/16/18 05:20 Senokot-S, Magali-Colace PO Not Given BID [facility] Tuberculin PPD 5 tu 09/20/18 10:00 Tubersol, Aplisol, Ppd ID 09/20/18 10:01 X1 ONE Problem List Encephalopathy (Acute) UTI (urinary tract infection) (Acute) Restless leg syndrome (Chronic) Insomnia (Chronic) Tinea corporis (Chronic) Vital Signs Temp Pulse Resp BP Pulse Ox 97.3 F L 71 22 H 140/74 H 95 09/15/18 15:35 09/16/18 09:29 09/16/18 09:29 09/15/18 15:35 09/16/18 09:29 Oxygen Flow Rate (L/min) 1 Oxygen Delivery Method Nasal Cannula Weight: 75.296 kg Body Mass Index (BMI) 28.5 Finger Stick Blood Glucose 176 Sodium 139 mmol/L (136-145) 09/13/18 05:12 Potassium 4.2 mmol/L (3.5-5.1) 09/13/18 05:12 Chloride 98 mmol/L (98-107) 09/13/18 05:12 Carbon Dioxide 35.0 mmol/L (21.0-32.0) H 09/13/18 05:12 Anion Gap 6 (5-15) 09/13/18 05:12 BUN 11 mg/dL (7-18) 09/13/18 05:12 Creatinine 0.72 mg/dL (0.55-1.02) 09/13/18 05:12 Est GFR (MDRD) Af Amer 100 mL/min (>60) 09/13/18 05:12 Est GFR (MDRD) Non-Af 82 mL/min (>60) 09/13/18 05:12 BUN/Creatinine Ratio 15.2 RATIO (10-20) 09/13/18 05:12 Glucose 104 mg/dL (74-106) 09/13/18 05:12 Assessment/Plan: 1) Pain APAP for mild pain. Continue to monitor prn medication use, daily pain scores. 2) HTN/CAD/HLD Minoxidil, losartan, clonidine, ASA, atorvastatin. Continue to monitor BP/HR, renal function, electrolytes, lipids. 3) ID Cephalexin. Continue to monitor s/s infection. 4) Sleep Melatonin at HS, doxepin prn. Continue to monitor prn medication use, for insomnia. 5) GI Pantoprazole daily. Continue to monitor s/s GI distress. 6) RLS Pramipexole at HS. Continue to monitor for RLS. 7) DVT PPx Enoxaparin daily. Continue to monitor for bleeding/clot. Psychotropic Medications: 8) Depression/Anxiety Fluoxetine, lorazepam twice daily. GDR addressed by physician. Continue to monitor for depression, anxiety. Unnecessary Medications: None Bowel Regimen: 9) Senna/s, PEG, prn bisacodyl. Continue to monitor prn medication use, for constipation/diarrhea. Date of Note:: 09/16/18 - Provider Comments Provider responsibility: Provider responsible to enter orders to implement recommendations <Perez Moseley Chi - Last Filed: 09/16/18 12:47> Progress Note - Pharmacy Subjective: [] Objective: Allergies acetaminophen [From [place]] Adverse Reaction (Verified 09/11/18 09:12) Nausea hydrocodone [From [place]] Adverse Reaction (Verified 09/11/18 09:12) Nausea sulfamethoxazole [From [place]] Adverse Reaction (Verified 09/11/18 09:11) Nausea trimethoprim [From Bact[place]] Adverse Reaction (Verified 09/11/18 09:11) Nausea Current Medications Generic Name Dose Route Start Last Admin Trade Name Freq PRN Reason Stop Dose Admin Acetaminophen 1,000 mg 09/12/18 22:08 09/16/18 09:05 Tylenol PO 1,000 mg Q6H PRN PRN Administration MILD PAIN (1-3/10) Albuterol Sulfate 2.5 mg 09/12/18 16:21 09/16/18 09:15 Ventolin Aerosols INHALATION 2.5 mg Q4H PRN PRN Administration SOB &/OR WHEEZING Aspirin 81 mg 09/13/18 08:00 09/16/18 09:05 Aspirin, Baby PO 81 mg DAILY@0800 AP Administration Atorvastatin Calcium 20 mg 09/12/18 22:00 09/15/18 20:54 Lipitor PO 20 mg QHS AP Administration Bisacodyl 10 mg 09/12/18 22:07 Dulcolax PO DAILY PRN Constipation Calamine/Phenol 1 applic 09/13/18 06:00 09/16/18 05:17 Calmoseptine Ointment TOPICAL 1 applicatio 0600,2200 AP Administration Protocol Cephalexin 500 mg 09/12/18 18:00 09/16/18 05:20 Keflex PO 09/17/18 06:01 500 mg BID AP Administration Clonidine 0.05 mg 09/12/18 18:00 09/16/18 05:18 Catapres PO 0.05 mg BID AP Administration Doxepin HCl 20 mg 09/12/18 22:06 09/15/18 20:55 Sinequan PO 20 mg QHS PRN Administration INSOMNIA Enoxaparin Sodium 40 mg 09/13/18 06:00 09/16/18 05:20 Lovenox SC 40 mg DAILY@0600 AP Administration Fluoxetine HCl 60 mg 09/13/18 06:00 09/16/18 05:20 Prozac PO 60 mg DAILY AP Administration Lorazepam 1 mg 09/12/18 21:00 09/16/18 09:05 Ativan PO 1 mg AP Administration Losartan Potassium 50 mg 09/13/18 06:00 09/16/18 05:19 Cozaar PO 50 mg DAILY AP Administration Melatonin 10 mg 09/12/18 22:00 09/15/18 20:55 Melatonin PO 10 mg QHS AP Administration Minoxidil 2.5 mg 09/12/18 18:00 09/16/18 05:19 Loniten PO 2.5 mg BID AP Administration Multi-Ingredient Cream 1 applic 09/13/18 06:00 09/16/18 05:17 Eucerin TOPICAL 1 applicatio 599,2199 [facility] Administration Protocol Nutritional Formula (Lactose Free) 120 ml 09/12/18 17:59 09/16/18 12:08 Ensure Enlive PO 120 ml 4X/DAY AP Administration Nystatin 1 applic 09/13/18 06:00 09/16/18 05:17 Mycostatin Powder TOPICAL 1 applicatio 599,0 [facility] Administration Protocol Pantoprazole Sodium 20 mg 09/13/18 06:00 09/16/18 05:19 Protonix PO 20 mg DAILY [facility] Administration Polyethylene Glycol 17 gm 09/13/18 06:00 09/16/18 05:20 Miralax PO Not Given DAILY [facility] Pramipexole Dihydrochloride 0.75 mg 09/12/18 22:00 09/15/18 20:55 Mirapex PO 0.75 mg QHS [facility] Administration Senna/Docusate Sodium 2 tablet 09/13/18 06:00 09/16/18 05:20 Senokot-S, Magali-Colace PO Not Given BID [facility] Tuberculin PPD 5 tu 09/20/18 10:00 Tubersol, Aplisol, Ppd ID 09/20/18 10:01 X1 ONE Problem List Encephalopathy (Acute) UTI (urinary tract infection) (Acute) Restless leg syndrome (Chronic) Insomnia (Chronic) Tinea corporis (Chronic) Vital Signs Temp Pulse Resp BP Pulse Ox 97.3 F L 71 22 H 140/74 H 95 09/15/18 15:35 09/16/18 09:29 09/16/18 09:29 09/15/18 15:35 09/16/18 09:29 Oxygen Flow Rate (L/min) 1 Oxygen Delivery Method Nasal Cannula Weight: 75.296 kg Body Mass Index (BMI) 28.5 Finger Stick Blood Glucose 176 Sodium 139 mmol/L (136-145) 09/13/18 05:12 Potassium 4.2 mmol/L (3.5-5.1) 09/13/18 05:12 Chloride 98 mmol/L (98-107) 09/13/18 05:12 Carbon Dioxide 35.0 mmol/L (21.0-32.0) H 09/13/18 05:12 Anion Gap 6 (5-15) 09/13/18 05:12 BUN 11 mg/dL (7-18) 09/13/18 05:12 Creatinine 0.72 mg/dL (0.55-1.02) 09/13/18 05:12 Est GFR (MDRD) Af Amer 100 mL/min (>60) 09/13/18 05:12 Est GFR (MDRD) Non-Af 82 mL/min (>60) 09/13/18 05:12 BUN/Creatinine Ratio 15.2 RATIO (10-20) 09/13/18 05:12 Glucose 104 mg/dL (74-106) 09/13/18 05:12 Assessment/Plan: Psychotropic Medications: Unnecessary Medications: Bowel Regimen: - Provider Comments Provider responsibility: Provider responsible to enter orders to implement recommendations Provider Comments to Recommendations by Pharmacy: Agree
--- NOTE | 2018-09-16 11:13 | NURSING ---
THIS NURSE FOUND A DIME SIZE PRESSURE SORE TO PT RIGHT UPPER HEAL. PT STATED IT WAS FROM HER SHOES. APPLIED MEPILEX REPORTED TO PRACHI ORNELAS
[2018-09-16 13:30] VITALS: PULSE 75; RESP 18; O2SAT 96
--- NOTE | 2018-09-16 14:57 | CASEMGMT ---
Brief interview for mental status (BIMS) and resident mood interview (PHQ-9) completed on this day. BIMS score 15/15. PHQ-9 score
[2018-09-16 15:28] VITALS: BP 107/54; PULSE 66; RESP 18; TEMP 36.8; O2SAT 93
--- NOTE | 2018-09-16 16:30 | CASEMGMT ---
Addendum entered by Rebecca Mcdaniel 09/16/18 16:49: Correction, next update due on 10/01/18 Original Note: Insurance Continued stay approved with next update due on 09/23/18. Auth#[id number] Allyn Mcdaniel, PLUMBER SUPERVISOR, RECRUITMENT SPECIALIST
[2018-09-16 20:48] VITALS: PULSE 72; RESP 18
[2018-09-16] MEDS: Atorvastatin Calcium 20 MG Tablet PO (21:21)
[2018-09-16] MEDS: Pramipexole Di-HCl 0.25 MG Tablet 0.75 MG PO (21:23)
[2018-09-16] MEDS: MELATONIN 10 MG TABLET PO (21:28)
[2018-09-17] MEDS: Menthol/Lanolin/Calamine/Znox 113 GM Tube 1 APPLIC TOPICAL ×2 (06:12→20:16)
[2018-09-17] MEDS: Losartan Potassium 50 MG Tablet PO (06:15)
[2018-09-17] MEDS: cloNIDine HCl 0.1 MG Tablet 0.05 MG PO ×2 (06:15→17:07)
[2018-09-17] MEDS: Minoxidil 2.5 MG Tablet PO ×2 (06:16→17:07)
[2018-09-17] MEDS: FLUoxetine 20 MG Capsule 60 MG PO (06:16)
[2018-09-17] MEDS: Cephalexin 500 MG Capsule PO (06:16)
[2018-09-17] MEDS: Pantoprazole Sodium 20 MG Tablet PO (06:16)
[2018-09-17] MEDS: Nystatin Powder 15gm Bottle 1 APPLIC TOPICAL ×2 (06:19→20:20)
[2018-09-17] MEDS: Enoxaparin 40 MG/0.4 ML Syringe SC (06:19)
[2018-09-17] MEDS: Aspirin 81 MG TAB.CHEW PO (08:01)
[2018-09-17] MEDS: LORazepam 1 MG Tablet PO ×2 (08:02→20:16)
[2018-09-17 10:00] VITALS: PULSE 82; RESP 18; O2SAT 93
[2018-09-17 11:09] VITALS: O2SAT 94
[2018-09-17 15:19] VITALS: BP 130/70; PULSE 76; RESP 18; TEMP 36.4; O2SAT 93
[2018-09-17] MEDS: Senna/Docusate Sodium 1 Tablet 2 TABLET PO (17:07)
[2018-09-17] MEDS: Pramipexole Di-HCl 0.25 MG Tablet 0.75 MG PO (20:19)
[2018-09-17] MEDS: MELATONIN 10 MG TABLET PO (20:19)
[2018-09-17] MEDS: Atorvastatin Calcium 20 MG Tablet PO (20:20)
[2018-09-17] MEDS: Doxepin Hydrochloride 10 MG Capsule 20 MG PO (20:21)
[2018-09-18] MEDS: Acetaminophen 500 MG Tablet 1000 MG PO (04:39)
[2018-09-18] MEDS: cloNIDine HCl 0.1 MG Tablet 0.05 MG PO ×2 (04:40→18:05)
[2018-09-18] MEDS: Senna/Docusate Sodium 1 Tablet 2 TABLET PO (04:41)
[2018-09-18] MEDS: Minoxidil 2.5 MG Tablet PO ×2 (04:41→18:05)
[2018-09-18] MEDS: FLUoxetine 20 MG Capsule 60 MG PO (04:41)
[2018-09-18] MEDS: Pantoprazole Sodium 20 MG Tablet PO (04:41)
[2018-09-18] MEDS: Losartan Potassium 50 MG Tablet PO (04:41)
[2018-09-18] MEDS: Menthol/Lanolin/Calamine/Znox 113 GM Tube 1 APPLIC TOPICAL ×2 (04:42→20:21)
[2018-09-18] MEDS: Nystatin Powder 15gm Bottle 1 APPLIC TOPICAL ×2 (04:43→20:19)
[2018-09-18] MEDS: Polyethylene Glycol 3350 17 GM PACKET PO (04:43)
[2018-09-18] MEDS: Enoxaparin 40 MG/0.4 ML Syringe SC (05:28)
[2018-09-18 06:20] VITALS: O2SAT 93
[2018-09-18] MEDS: Aspirin 81 MG TAB.CHEW PO (08:21)
[2018-09-18] MEDS: LORazepam 1 MG Tablet PO ×2 (08:24→20:12)
--- NOTE | 2018-09-18 09:46 | CASEMGMT ---
Plan of care meeting held. Resident present as well as resident son. No discharge date set at this time. Resident to continue with further care and treatment on the Transitional Care Unit. Resident plans to discharge to home with alone at time of discharge. Support given. Will continue to follow. LINDEN Das, CARDIOPULMONARY TECHNOLOGIST
--- NOTE | 2018-09-18 13:49 | NURSING ---
THIS NURSE CHANGED MEPILEX TO PT RIGHT HEEL. 09/18/18
[2018-09-18 14:43] VITALS: PULSE 74; RESP 18
[2018-09-18] MEDS: Albuterol 2.5 MG/3 ML VIAL.NEB. INHALATION (14:43)
[2018-09-18 15:42] VITALS: BP 118/69; PULSE 84; RESP 18; TEMP 36.4; O2SAT 91
[2018-09-18 16:18] VITALS: PULSE 77; RESP 18; O2SAT 94
[2018-09-18] MEDS: MELATONIN 10 MG TABLET PO (20:17)
[2018-09-18] MEDS: Pramipexole Di-HCl 0.25 MG Tablet 0.75 MG PO (20:17)
[2018-09-18] MEDS: Atorvastatin Calcium 20 MG Tablet PO (20:18)
[2018-09-18] MEDS: Doxepin Hydrochloride 10 MG Capsule 20 MG PO (21:12)
[2018-09-19] MEDS: Minoxidil 2.5 MG Tablet PO ×2 (06:43→17:37)
[2018-09-19] MEDS: cloNIDine HCl 0.1 MG Tablet 0.05 MG PO ×2 (06:43→17:36)
[2018-09-19] MEDS: Pantoprazole Sodium 20 MG Tablet PO (06:43)
[2018-09-19] MEDS: FLUoxetine 20 MG Capsule 60 MG PO (06:43)
[2018-09-19] MEDS: Menthol/Lanolin/Calamine/Znox 113 GM Tube 1 APPLIC TOPICAL ×2 (06:46→20:54)
[2018-09-19] MEDS: Enoxaparin 40 MG/0.4 ML Syringe SC (06:47)
[2018-09-19] MEDS: Nystatin Powder 15gm Bottle 1 APPLIC TOPICAL ×2 (06:48→21:19)
[2018-09-19] MEDS: Losartan Potassium 50 MG Tablet PO (06:51)
[2018-09-19 07:16] VITALS: O2SAT 90
[2018-09-19] MEDS: LORazepam 1 MG Tablet PO ×2 (07:59→20:59)
[2018-09-19] MEDS: Aspirin 81 MG TAB.CHEW PO (07:59)
[2018-09-19 15:26] VITALS: BP 133/67; PULSE 78; RESP 18; TEMP 36.2; O2SAT 92
[2018-09-19] MEDS: Senna/Docusate Sodium 1 Tablet 2 TABLET PO (17:36)
[2018-09-19] MEDS: Doxepin Hydrochloride 10 MG Capsule 20 MG PO (20:53)
[2018-09-19] MEDS: Pramipexole Di-HCl 0.25 MG Tablet 0.75 MG PO (20:53)
[2018-09-19] MEDS: Atorvastatin Calcium 20 MG Tablet PO (20:53)
[2018-09-19 21:05] VITALS: PULSE 93; RESP 18; O2SAT 93
[2018-09-19] MEDS: MELATONIN 10 MG TABLET PO (22:05)
[2018-09-20] MEDS: Enoxaparin 40 MG/0.4 ML Syringe SC (04:50)
[2018-09-20] MEDS: cloNIDine HCl 0.1 MG Tablet 0.05 MG PO ×2 (04:51→17:01)
[2018-09-20] MEDS: Minoxidil 2.5 MG Tablet PO ×2 (04:52→17:01)
[2018-09-20] MEDS: Acetaminophen 500 MG Tablet 1000 MG PO (04:52)
[2018-09-20] MEDS: Pantoprazole Sodium 20 MG Tablet PO (04:53)
[2018-09-20] MEDS: FLUoxetine 20 MG Capsule 60 MG PO (04:53)
[2018-09-20] MEDS: Senna/Docusate Sodium 1 Tablet 2 TABLET PO ×2 (04:53→17:01)
[2018-09-20] MEDS: Losartan Potassium 50 MG Tablet PO (04:56)
[2018-09-20] MEDS: Nystatin Powder 15gm Bottle 1 APPLIC TOPICAL ×2 (04:58→21:12)
[2018-09-20] MEDS: Menthol/Lanolin/Calamine/Znox 113 GM Tube 1 APPLIC TOPICAL ×2 (04:59→21:10)
[2018-09-20 06:18] LABS: Absolute Lymphocyte Count 1.32 X10^3/ul (0.83-4.51); Absolute Neutrophil Count 4.3 X10^3/uL (2.0-7.7); Basophil# 0.02 X10^3/uL; Basophil% 0.3 % (0-1); Eosinophil# 0.16 X10^3/uL; Eosinophils% 2.5 % (0-5); Hemoglobin 10.8 g/dl (12.0-15.0); Lymphocyte # 1.32 X10^3/ul (4.0); Mean Corp Hgb Conc 31.8 g/gl (32-36); Mean Corpuscular Hgb 29.7 pg (27.0-32.0); Mean Corpuscular Volume 93.4 fL (81-99); Mean Platelet Vol. 8.9 fl (6.2-12.0); Monocyte# 0.53 X10^3/uL; Monocyte% 8.4 % (0-10); Neutrophil # 4.26 X10^3/uL (2.7-7.7); Neutrophil % 67.6 % (47-70); Platelet Count 262 K/mm3 (150-450); RBC Distribution Width CV 13.4 % (11.6-14.6); RBC Distribution Width SD 44.4 fl (35.1-43.9); Red Blood Count 3.64 M/mm3 (4.2-5.4); White Blood Count 6.3 K/mm3 (4.4-11.0)
[2018-09-20 06:20] LABS: POSITIVE COUNT NO; POSITIVE DIFFERENTIAL NO; POSITIVE MORPHOLOGY NO
[2018-09-20 06:28] VITALS: O2SAT 89
[2018-09-20 06:30] LABS: Anion Gap 6 (5-15); BUN 22 mg/dL (7-18); BUN/Creat Ratio 25.3 RATIO (10-20); Calcium,Total 9.1 mg/dL (8.5-10.1); Chloride 100 mmol/L (98-107); Creatinine, Serum 0.87 mg/dL (0.55-1.02); EST Glomerular Filtration Rate 67 mL/min (>60); Est Glom Filt Rate - Afr Amer 81 mL/min (>60); Estimated Creatinine Clearance 45.28 ml/min; Glucose 101 mg/dL (74-106); Potassium 4.4 mmol/L (3.5-5.1); Sodium Level 137 mmol/L (136-145)
[2018-09-20] MEDS: Aspirin 81 MG TAB.CHEW PO (07:40)
[2018-09-20] MEDS: LORazepam 1 MG Tablet PO ×2 (08:29→21:10)
[2018-09-20 09:30] VITALS: PULSE 81; RESP 18; O2SAT 96
--- NOTE | 2018-09-20 10:14 | NURSING ---
PT REFUSED PPD TEST. STATED SHE ALWAYS TEST POSITIVE. REPORTED TO PRACHI CARRILLO
[2018-09-20 15:36] VITALS: BP 110/60; PULSE 78; RESP 18; TEMP 36.6; O2SAT 93
[2018-09-20] MEDS: Atorvastatin Calcium 20 MG Tablet PO (21:11)
[2018-09-20] MEDS: Pramipexole Di-HCl 0.25 MG Tablet 0.75 MG PO (21:12)
[2018-09-20] MEDS: MELATONIN 10 MG TABLET PO (21:12)
[2018-09-20] MEDS: Doxepin Hydrochloride 10 MG Capsule 20 MG PO (21:13)
[2018-09-21] MEDS: Menthol/Lanolin/Calamine/Znox 113 GM Tube 1 APPLIC TOPICAL ×2 (05:42→22:01)
[2018-09-21] MEDS: Acetaminophen 500 MG Tablet 1000 MG PO (05:43)
[2018-09-21] MEDS: cloNIDine HCl 0.1 MG Tablet 0.05 MG PO ×2 (05:44→16:51)
[2018-09-21] MEDS: Pantoprazole Sodium 20 MG Tablet PO (05:44)
[2018-09-21] MEDS: Losartan Potassium 50 MG Tablet PO (05:44)
[2018-09-21] MEDS: Minoxidil 2.5 MG Tablet PO ×2 (05:44→16:51)
[2018-09-21] MEDS: Senna/Docusate Sodium 1 Tablet 2 TABLET PO ×2 (05:45→16:51)
[2018-09-21] MEDS: Nystatin Powder 15gm Bottle 1 APPLIC TOPICAL ×2 (05:45→22:02)
[2018-09-21] MEDS: Enoxaparin 40 MG/0.4 ML Syringe SC (05:45)
[2018-09-21] MEDS: FLUoxetine 20 MG Capsule 60 MG PO (05:46)
[2018-09-21 06:46] VITALS: PULSE 71; RESP 18; O2SAT 90
[2018-09-21] MEDS: Albuterol 2.5 MG/3 ML VIAL.NEB. INHALATION (06:46)
[2018-09-21 06:50] VITALS: O2SAT 92
[2018-09-21] MEDS: Aspirin 81 MG TAB.CHEW PO (07:36)
[2018-09-21] MEDS: LORazepam 1 MG Tablet PO ×2 (07:36→22:29)
[2018-09-21 10:00] VITALS: PULSE 84; RESP 18; O2SAT 96
[2018-09-21 15:17] VITALS: BP 103/56; PULSE 58; RESP 20; TEMP 36.3; O2SAT 90
[2018-09-21] MEDS: Bisacodyl 5 MG Tablet 10 MG PO (16:51)
[2018-09-21] MEDS: Doxepin Hydrochloride 10 MG Capsule 20 MG PO (22:01)
[2018-09-21] MEDS: Atorvastatin Calcium 20 MG Tablet PO (22:01)
[2018-09-21] MEDS: Pramipexole Di-HCl 0.25 MG Tablet 0.75 MG PO (22:01)
[2018-09-21] MEDS: MELATONIN 10 MG TABLET PO (22:01)
[2018-09-22] MEDS: FLUoxetine 20 MG Capsule 60 MG PO (06:02)
[2018-09-22] MEDS: Pantoprazole Sodium 20 MG Tablet PO (06:03)
[2018-09-22] MEDS: Minoxidil 2.5 MG Tablet PO ×2 (06:03→17:01)
[2018-09-22] MEDS: Senna/Docusate Sodium 1 Tablet 2 TABLET PO (06:03)
[2018-09-22] MEDS: cloNIDine HCl 0.1 MG Tablet 0.05 MG PO ×2 (06:04→17:00)
[2018-09-22] MEDS: Enoxaparin 40 MG/0.4 ML Syringe SC (06:06)
[2018-09-22] MEDS: Losartan Potassium 50 MG Tablet PO (06:06)
[2018-09-22] MEDS: Menthol/Lanolin/Calamine/Znox 113 GM Tube 1 APPLIC TOPICAL ×2 (06:07→19:56)
[2018-09-22] MEDS: Nystatin Powder 15gm Bottle 1 APPLIC TOPICAL ×2 (06:15→20:02)
[2018-09-22] MEDS: Acetaminophen 500 MG Tablet 1000 MG PO (06:49)
[2018-09-22 07:30] VITALS: O2SAT 90
[2018-09-22] MEDS: Aspirin 81 MG TAB.CHEW PO (08:30)
[2018-09-22] MEDS: LORazepam 1 MG Tablet PO ×2 (08:31→19:56)
[2018-09-22 10:00] VITALS: PULSE 81; RESP 18; O2SAT 93
[2018-09-22 15:49] VITALS: BP 107/57; PULSE 72; RESP 18; TEMP 37.3; O2SAT 90
[2018-09-22] MEDS: Atorvastatin Calcium 20 MG Tablet PO (19:57)
[2018-09-22] MEDS: MELATONIN 10 MG TABLET PO (19:57)
[2018-09-22] MEDS: Pramipexole Di-HCl 0.25 MG Tablet 0.75 MG PO (19:57)
[2018-09-23] MEDS: FLUoxetine 20 MG Capsule 60 MG PO (05:09)
[2018-09-23] MEDS: Minoxidil 2.5 MG Tablet PO ×2 (05:10→18:16)
[2018-09-23] MEDS: cloNIDine HCl 0.1 MG Tablet 0.05 MG PO ×2 (05:10→18:16)
[2018-09-23] MEDS: Losartan Potassium 50 MG Tablet PO (05:11)
[2018-09-23] MEDS: Menthol/Lanolin/Calamine/Znox 113 GM Tube 1 APPLIC TOPICAL ×2 (05:12→20:31)
[2018-09-23] MEDS: Pantoprazole Sodium 20 MG Tablet PO (05:12)
[2018-09-23] MEDS: Senna/Docusate Sodium 1 Tablet 2 TABLET PO ×2 (05:12→18:16)
[2018-09-23] MEDS: Enoxaparin 40 MG/0.4 ML Syringe SC (05:12)
[2018-09-23] MEDS: Nystatin Powder 15gm Bottle 1 APPLIC TOPICAL ×2 (05:13→21:17)
[2018-09-23] MEDS: Aspirin 81 MG TAB.CHEW PO (09:34)
[2018-09-23] MEDS: LORazepam 1 MG Tablet PO ×2 (09:35→20:30)
[2018-09-23 15:37] VITALS: BP 121/61; PULSE 68; RESP 18; TEMP 36.8; O2SAT 92
[2018-09-23 20:30] VITALS: PULSE 72; RESP 20; O2SAT 92
[2018-09-23] MEDS: Pramipexole Di-HCl 0.25 MG Tablet 0.75 MG PO (20:32)
[2018-09-23] MEDS: Atorvastatin Calcium 20 MG Tablet PO (20:33)
[2018-09-23] MEDS: MELATONIN 10 MG TABLET PO (20:33)
[2018-09-23] MEDS: Doxepin Hydrochloride 10 MG Capsule 20 MG PO (20:36)
[2018-09-23 23:59] VITALS: PULSE 79; RESP 18
[2018-09-23] MEDS: Albuterol 2.5 MG/3 ML VIAL.NEB. INHALATION (23:59)
[2018-09-24] MEDS: Menthol/Lanolin/Calamine/Znox 113 GM Tube 1 APPLIC TOPICAL ×2 (05:56→06:03)
[2018-09-24] MEDS: cloNIDine HCl 0.1 MG Tablet 0.05 MG PO ×2 (05:58→17:30)
[2018-09-24] MEDS: Losartan Potassium 50 MG Tablet PO (05:58)
[2018-09-24] MEDS: Senna/Docusate Sodium 1 Tablet 2 TABLET PO ×2 (05:58→17:31)
[2018-09-24] MEDS: FLUoxetine 20 MG Capsule 60 MG PO (05:58)
[2018-09-24] MEDS: Minoxidil 2.5 MG Tablet PO ×2 (06:00→17:31)
[2018-09-24] MEDS: Pantoprazole Sodium 20 MG Tablet PO (06:01)
[2018-09-24] MEDS: Enoxaparin 40 MG/0.4 ML Syringe SC (06:02)
[2018-09-24] MEDS: Nystatin Powder 15gm Bottle 1 APPLIC TOPICAL ×2 (06:03→20:23)
[2018-09-24] MEDS: Aspirin 81 MG TAB.CHEW PO (07:57)
[2018-09-24] MEDS: Acetaminophen 500 MG Tablet 1000 MG PO (09:35)
[2018-09-24] MEDS: LORazepam 1 MG Tablet PO ×2 (09:35→20:20)
[2018-09-24 15:42] VITALS: BP 129/60; PULSE 71; RESP 18; TEMP 35.7; O2SAT 94
[2018-09-24] MEDS: Pramipexole Di-HCl 0.25 MG Tablet 0.75 MG PO (20:22)
[2018-09-24] MEDS: MELATONIN 10 MG TABLET PO (20:22)
[2018-09-24] MEDS: Atorvastatin Calcium 20 MG Tablet PO (20:23)
[2018-09-24 20:35] VITALS: PULSE 68; RESP 20; O2SAT 95
[2018-09-24] MEDS: Doxepin Hydrochloride 10 MG Capsule 20 MG PO (21:09)
[2018-09-25] MEDS: Nystatin Powder 15gm Bottle 1 APPLIC TOPICAL ×2 (06:20→23:16)
[2018-09-25] MEDS: Menthol/Lanolin/Calamine/Znox 113 GM Tube 1 APPLIC TOPICAL ×2 (06:21→20:57)
[2018-09-25] MEDS: Minoxidil 2.5 MG Tablet PO ×2 (06:22→17:24)
[2018-09-25] MEDS: Pantoprazole Sodium 20 MG Tablet PO (06:22)
[2018-09-25] MEDS: Losartan Potassium 50 MG Tablet PO (06:22)
[2018-09-25] MEDS: Enoxaparin 40 MG/0.4 ML Syringe SC (06:23)
[2018-09-25] MEDS: cloNIDine HCl 0.1 MG Tablet 0.05 MG PO ×2 (06:23→17:24)
[2018-09-25] MEDS: Senna/Docusate Sodium 1 Tablet 2 TABLET PO (06:24)
[2018-09-25] MEDS: FLUoxetine 20 MG Capsule 60 MG PO (06:24)
--- NOTE | 2018-09-25 06:50 | MDS.RN ---
Information for the mds was obtained from review of the clinical record, interview of resident, staff, and direct observation of resident's care.
[2018-09-25] MEDS: LORazepam 1 MG Tablet PO ×2 (09:45→20:50)
[2018-09-25] MEDS: Aspirin 81 MG TAB.CHEW PO (09:45)
[2018-09-25 10:00] VITALS: PULSE 72; RESP 20; O2SAT 96
--- NOTE | 2018-09-25 14:14 | CASEMGMT ---
Brief interview for mental status (BIMS) and resident mood interview (PHQ-9) completed on this day. BIMS score 15. PHQ-9 score 11/20
--- NOTE | 2018-09-25 14:17 | CASEMGMT ---
Social Work Spoke with resident in room. This social contact worker communicating to resident that discharge date has been set for 09/28/18. Resident is agreeable to discharge date and plans to discharge to home alone. This socia worker communicating that physical therapy is recommending for resident to continue with services within the home. Resident is agreeable to recommendation and requesting for home health care to be set up through [facility] ([facility]). Resident reporting to have a walker already set up within the home. This social contact worker inquiring about contacting resident family in regards to discharge date/plan, resident declining for this socia worker to contact resident family in regards to discharge. Resident reporting to be able to speak with family about discharge and that resident sonKalia will be providing transportation home for resident at time of discharge. Support given. [facility] This social contact worker making referral for physical therapy. Order to be completed. Proposed discharge date: 09/28/18 PLAN: Discharge to home alone with home health care. LINDEN Das, DENTAL ASSISTING INSTRUCTOR
[2018-09-25 15:51] VITALS: BP 127/74; PULSE 76; RESP 16; TEMP 36.8; O2SAT 93
--- NOTE | 2018-09-25 20:40 | DCINST_ITS ---
- Discharge Diagnoses Current Active Problems: Current Active and Chronic Problems Encephalopathy (Acute) UTI (urinary tract infection) (Acute) Restless leg syndrome (Chronic) Insomnia (Chronic) Tinea corporis (Chronic) You will use the following diet at home:: No restrictions, Regular Your food should be the consistency of: Regular Your liquids should be the consistency of: Regular/Thin Discharge Activity: Return to Normal Activity, May Shower, Use Walker Weight Bearing Status: Weight bearing as tolerated Call your doctor if you observe: Fever of 101 or Higher, Inability to urinate, Inability to have a bowel movement, Shortness of breath, Chest pain, Uncontrolled pain Allergies/Adverse Reactions: Allergies acetaminophen [From [place]] Adverse Reaction (Verified 09/11/18 09:12) Nausea hydrocodone [From [place]] Adverse Reaction (Verified 09/11/18 09:12) Nausea sulfamethoxazole [From Bact[place]] Adverse Reaction (Verified 09/11/18 09:11) Nausea trimethoprim [From Bactrim] Adverse Reaction (Verified 09/11/18 09:11) Nausea Medications to take at Discharge Fluoxetine [Prozac] 60 mg PO DAILY 03/17/17 Lorazepam [Ativan] 1 mg PO BID 03/17/17 Losartan Potassium 50 mg PO DAILY 03/17/17 Pantoprazole Sodium [Protonix] 20 mg PO DAILY 03/17/17 Pramipexole Di-HCl [Pramipexole Dihydrochloride] 0.75 mg PO QHS 03/17/17 Simvastatin 40 mg PO QHS 03/17/17 Minoxidil [Loniten] 2.5 mg PO BID 10/19/17 Aspirin [Aspirin, Baby] 81 mg PO DAILY@0800 09/09/18 Clonidine HCl [Catapres] 0.05 mg PO BID 09/09/18 Nystatin Powder [Mycostatin Powder] 1 applic TOPICAL BID PRN 09/09/18 Melatonin 10 mg PO QHS 09/12/18 Acetaminophen [Tylenol] 1,000 mg PO Q6H PRN PRN tablet 09/25/18 Doxepin HCl [Sinequan] 20 mg PO QHS PRN #60 capsule 09/25/18 Menthol/Lanolin/Calamine/Znox [Calmoseptine Ointment] 1 applic TOPICAL 0600,2200 tube 09/25/18 Mineral Oil/Petrolatum,White [Eucerin] 1 applic TOPICAL 0600,2200 jar 09/25/18 The following prescriptions were given: Doxepin HCl [Sinequan] 20 mg PO QHS PRN #60 capsule PRN Reason: Insomnia Primary Care Physician: Jose L Valenzuela MD [Primary Care Provider] - Please follow up with your Primary Care Physician in: 1 week. Test Results: Test results from this visit will be discussed in further detail at your follow- up appointment, if applicable. Proposed Discharge Date: 09/28/18
--- NOTE | 2018-09-25 20:42 | DS.PCM_ITS ---
Discharge Date and Diagnosis - Problem List Patient Problems: Active and Suspected Problems Encephalopathy (Acute) UTI (urinary tract infection) (Acute) Date of Admission: 09/12/18 Date of Discharge: 09/28/18 - Primary Discharge Diagnosis Active and Suspected Problems Encephalopathy (Acute) UTI (urinary tract infection) (Acute) - Secondary Discharge Diagnosis Chronic Problems Restless leg syndrome (Chronic) Insomnia (Chronic) Tinea corporis (Chronic) Diaphragmatic hernia (Chronic) Diabetes mellitus (Chronic) Coronary artery disease (Chronic) Obesity (Chronic) GERD (gastroesophageal reflux disease) (Chronic) Hx of appendectomy (Chronic) Benign essential HTN (Chronic) Depression (Chronic) HLD (hyperlipidemia) (Chronic) Overweight (BMI 25.0-29.9) (Chronic) CAD (coronary artery disease) (Chronic) Diabetes mellitus, type II (Chronic) Hyponatremia (Chronic) also has chronic mild hyponatremia Traumatic closed nondisplaced fracture of neck of left femur (Chronic) Status post closed reduction with internal fixation (Chronic) left femur 06/22, Dr Spears, [facility] Tinea unguium (Chronic) Dyskinesia, tardive (Chronic) Brain aneurysm (Chronic) Hypertension (Chronic) Diabetic neuropathy (Chronic) Hospital Course and Treatment Imaging Results: 09/12/18 16:23 Diet: Regular Diet Operations: None Procedures: None Summary of Care Provided: The patient is a 77 year old Female with below past medical history hospitalized for encephalopathy secondary to C. koseri UTI, complicated by dehydration, insomnia, admitted to TCU with debility, here for rehabilitation, strengthening, prior to discharge home alone. Discharge home alone, with Home Health Services. Patient Problems: Active and Suspected Problems Encephalopathy (Acute) UTI (urinary tract infection) (Acute) - Physical Exam Vital Signs Temp Pulse Resp BP Pulse Ox 98.2 F 76 16 127/74 H 93 09/25/18 15:51 09/25/18 15:51 09/25/18 15:51 09/25/18 15:51 09/25/18 15:51 Oxygen Flow Rate (L/min) 1 Oxygen Delivery Method Room Air Weight: 73.482 kg Body Mass Index (BMI) 28.5 Finger Stick Blood Glucose 176 Intake and Output for Last 24 Hours 09/23/18 09/24/18 09/25/18 23:59 23:59 23:59 Intake Total 480 / 480 900 / 900 720 / 720 Balance 480 / 480 900 / 900 720 / 720 Discharge Diet: No Restrictions Discharge Activity: Return to Normal Activity, May Shower, Use Walker Weight Bearing Status: Weight bearing as tolerated Call your doctor if you observe: Fever of 101 or Higher, Inability to urinate, Inability to have a bowel movement, Shortness of breath, Chest pain, Uncontrolled pain Home Medications: Medications to take at Discharge Fluoxetine [Prozac] 60 mg PO DAILY 03/17/17 Lorazepam [Ativan] 1 mg PO BID 03/17/17 Losartan Potassium 50 mg PO DAILY 03/17/17 Pantoprazole Sodium [Protonix] 20 mg PO DAILY 03/17/17 Pramipexole Di-HCl [Pramipexole Dihydrochloride] 0.75 mg PO QHS 03/17/17 Simvastatin 40 mg PO QHS 03/17/17 Minoxidil [Loniten] 2.5 mg PO BID 10/19/17 Aspirin [Aspirin, Baby] 81 mg PO DAILY@0800 09/09/18 Clonidine HCl [Catapres] 0.05 mg PO BID 09/09/18 Nystatin Powder [Mycostatin Powder] 1 applic TOPICAL BID PRN 09/09/18 Melatonin 10 mg PO QHS 09/12/18 Acetaminophen [Tylenol] 1,000 mg PO Q6H PRN PRN tablet 09/25/18 Doxepin HCl [Sinequan] 20 mg PO QHS PRN #60 capsule 09/25/18 Menthol/Lanolin/Calamine/Znox [Calmoseptine Ointment] 1 applic TOPICAL 0600,2200 tube 09/25/18 Mineral Oil/Petrolatum,White [Eucerin] 1 applic TOPICAL 0600,2200 jar 09/25/18 Following Prescrptions Were Given to Patient: Doxepin HCl [Sinequan] 20 mg PO QHS PRN #60 capsule PRN Reason: Insomnia Primary Care Physician: Jose L Valenzuela MD [Primary Care Provider] - Please follow up with your Primary Care Physician in: 1 week. Disposition: Home with Home Health Minutes spent on discharge:: 35 Patient Condition:: Stable Medical Necessity - Tobacco Use Smoking Status: Never smoker Tobacco Use: Non-smoker Meaningful Use Info Meaningful Use Diagnoses (Choose all that apply): None applicable
--- NOTE | 2018-09-25 20:42 | PCM.PN.HH ---
Home Health Note - Plan Overview of reason of hospitalization: The patient is a 77 year old Female with below past medical history hospitalized for encephalopathy secondary to C. koseri UTI, complicated by dehydration, insomnia, admitted to TCU with debility, here for rehabilitation, strengthening, prior to discharge home alone. Discharge home alone, with Home Health Services. Problems: Patient was seen for Encephalopathy (Acute) UTI (urinary tract infection) (Acute) Restless leg syndrome (Chronic) Insomnia (Chronic) Tinea corporis (Chronic) Complete List of Medical Problems Encephalopathy (Acute) UTI (urinary tract infection) (Acute) Restless leg syndrome (Chronic) Insomnia (Chronic) Tinea corporis (Chronic) Diaphragmatic hernia (Chronic) Diabetes mellitus (Chronic) Coronary artery disease (Chronic) Obesity (Chronic) GERD (gastroesophageal reflux disease) (Chronic) Hx of appendectomy (Chronic) Benign essential HTN (Chronic) Depression (Chronic) HLD (hyperlipidemia) (Chronic) Overweight (BMI 25.0-29.9) (Chronic) CAD (coronary artery disease) (Chronic) Diabetes mellitus, type II (Chronic) Hyponatremia (Chronic) Traumatic closed nondisplaced fracture of neck of left femur (Chronic) Status post closed reduction with internal fixation (Chronic) Tinea unguium (Chronic) Dyskinesia, tardive (Chronic) Confusion (Acute) Brain aneurysm (Chronic) Hypertension (Chronic) Diabetic neuropathy (Chronic) Hypoxia (Acute) Generalized weakness (Acute) - Requirements and Reasons Disciplines Needed/Ordered: Physical Therapy Reason for Disciplines: Gait Training, Stair Training, Fall Prevention, Home Safety/Equipment Instruction, Balance and/or Posture Training, Transfer Training Related To: Unsteady Gait/Balance, Fall Risk Patient is unable to leave the home: Without Aid of Supportive Devices (crutches, cane, wheelchair, walker), Without the assistance of another person
[2018-09-25] MEDS: Pramipexole Di-HCl 0.25 MG Tablet 0.75 MG PO (20:51)
[2018-09-25] MEDS: MELATONIN 10 MG TABLET PO (20:51)
[2018-09-25] MEDS: Atorvastatin Calcium 20 MG Tablet PO (20:51)
[2018-09-25] MEDS: Doxepin Hydrochloride 10 MG Capsule 20 MG PO (20:54)
[2018-09-26] MEDS: Menthol/Lanolin/Calamine/Znox 113 GM Tube 1 APPLIC TOPICAL ×2 (05:54→20:58)
[2018-09-26] MEDS: FLUoxetine 20 MG Capsule 60 MG PO (05:54)
[2018-09-26] MEDS: Minoxidil 2.5 MG Tablet PO ×2 (05:55→17:22)
[2018-09-26] MEDS: cloNIDine HCl 0.1 MG Tablet 0.05 MG PO ×2 (05:55→17:22)
[2018-09-26] MEDS: Losartan Potassium 50 MG Tablet PO (05:55)
[2018-09-26] MEDS: Pantoprazole Sodium 20 MG Tablet PO (05:55)
[2018-09-26] MEDS: Enoxaparin 40 MG/0.4 ML Syringe SC (05:58)
[2018-09-26] MEDS: Nystatin Powder 15gm Bottle 1 APPLIC TOPICAL ×2 (05:58→21:01)
[2018-09-26 07:25] VITALS: O2SAT 91
--- NOTE | 2018-09-26 08:41 | NURSING ---
In to assess bilateral feet/heels. No pressure injuries noted. patient states that she had some bruising at some point, but there is no bruising noted currently. pt denies further needs at this time.
[2018-09-26] MEDS: Aspirin 81 MG TAB.CHEW PO (09:28)
[2018-09-26] MEDS: LORazepam 1 MG Tablet PO ×2 (09:29→20:58)
[2018-09-26 15:49] VITALS: BP 116/65; PULSE 90; RESP 18; TEMP 36.6; O2SAT 94
[2018-09-26 21:00] VITALS: PULSE 80; RESP 18; O2SAT 92
[2018-09-26] MEDS: MELATONIN 10 MG TABLET PO (21:00)
[2018-09-26] MEDS: Atorvastatin Calcium 20 MG Tablet PO (21:00)
[2018-09-26] MEDS: Pramipexole Di-HCl 0.25 MG Tablet 0.75 MG PO (21:02)
[2018-09-26] MEDS: Doxepin Hydrochloride 10 MG Capsule 20 MG PO (21:03)
[2018-09-27] MEDS: Enoxaparin 40 MG/0.4 ML Syringe SC (05:27)
[2018-09-27] MEDS: FLUoxetine 20 MG Capsule 60 MG PO (05:28)
[2018-09-27] MEDS: cloNIDine HCl 0.1 MG Tablet 0.05 MG PO ×2 (05:28→16:53)
[2018-09-27] MEDS: Minoxidil 2.5 MG Tablet PO ×2 (05:29→16:53)
[2018-09-27] MEDS: Losartan Potassium 50 MG Tablet PO (05:29)
[2018-09-27] MEDS: Pantoprazole Sodium 20 MG Tablet PO (05:29)
[2018-09-27] MEDS: Nystatin Powder 15gm Bottle 1 APPLIC TOPICAL ×2 (05:30→20:12)
[2018-09-27 06:33] LABS: Absolute Lymphocyte Count 1.42 X10^3/ul (0.83-4.51); Absolute Neutrophil Count 4.3 X10^3/uL (2.0-7.7); Basophil# 0.02 X10^3/uL; Basophil% 0.3 % (0-1); Eosinophil# 0.19 X10^3/uL; Hematocrit 33.8 % (37-47); Hemoglobin 10.7 g/dl (12.0-15.0); Lymphocyte # 1.42 X10^3/ul (4.0); Lymphocyte % 22.8 % (19-41); Mean Corp Hgb Conc 31.7 g/gl (32-36); Mean Corpuscular Hgb 29.1 pg (27.0-32.0); Mean Corpuscular Volume 91.8 fL (81-99); Mean Platelet Vol. 8.8 fl (6.2-12.0); Monocyte# 0.35 X10^3/uL; Monocyte% 5.6 % (0-10); Neutrophil # 4.25 X10^3/uL (2.7-7.7); Neutrophil % 68.1 % (47-70); POSITIVE COUNT NO; POSITIVE DIFFERENTIAL NO; POSITIVE MORPHOLOGY NO; Platelet Count 240 K/mm3 (150-450); RBC Distribution Width CV 13.8 % (11.6-14.6); RBC Distribution Width SD 45.9 fl (35.1-43.9); Red Blood Count 3.68 M/mm3 (4.2-5.4); White Blood Count 6.2 K/mm3 (4.4-11.0)
[2018-09-27 06:50] VITALS: O2SAT 94
[2018-09-27 06:55] LABS: Anion Gap 8 (5-15); BUN 27 mg/dL (7-18); Calcium,Total 8.8 mg/dL (8.5-10.1); Chloride 102 mmol/L (98-107); Creatinine, Serum 0.87 mg/dL (0.55-1.02); EST Glomerular Filtration Rate 67 mL/min (>60); Est Glom Filt Rate - Afr Amer 81 mL/min (>60); Estimated Creatinine Clearance 45.28 ml/min; Glucose 90 mg/dL (74-106); Potassium 4.5 mmol/L (3.5-5.1); Sodium Level 139 mmol/L (136-145)
[2018-09-27] MEDS: LORazepam 1 MG Tablet PO ×2 (08:26→20:12)
[2018-09-27] MEDS: Aspirin 81 MG TAB.CHEW PO (08:26)
[2018-09-27 10:00] VITALS: PULSE 51; RESP 18; O2SAT 92
[2018-09-27 15:04] VITALS: BP 119/67; PULSE 79; RESP 16; TEMP 36.9; O2SAT 92
--- NOTE | 2018-09-27 19:47 | NURSING ---
Pt stated son is going to pick her up for d/c from facility tomorrow (09-28-18) and asking what her discharge time was. Explained to pt it is whatever works for her and she stated since she already ordered lunch, she would plan on 1-130pm. Assured pt this would be passed on to oncoming shift in morning. RN aware.
[2018-09-27] MEDS: Menthol/Lanolin/Calamine/Znox 113 GM Tube 1 APPLIC TOPICAL (20:12)
[2018-09-27] MEDS: Pramipexole Di-HCl 0.25 MG Tablet 0.75 MG PO (20:13)
[2018-09-27] MEDS: MELATONIN 10 MG TABLET PO (20:14)
[2018-09-27] MEDS: Atorvastatin Calcium 20 MG Tablet PO (20:14)
[2018-09-27] MEDS: Doxepin Hydrochloride 10 MG Capsule 20 MG PO (20:15)
[2018-09-28] MEDS: Menthol/Lanolin/Calamine/Znox 113 GM Tube 1 APPLIC TOPICAL (05:21)
[2018-09-28] MEDS: Losartan Potassium 50 MG Tablet PO (05:22)
[2018-09-28] MEDS: Polyethylene Glycol 3350 17 GM PACKET PO (05:22)
[2018-09-28] MEDS: FLUoxetine 20 MG Capsule 60 MG PO (05:22)
[2018-09-28] MEDS: cloNIDine HCl 0.1 MG Tablet 0.05 MG PO (05:23)
[2018-09-28] MEDS: Nystatin Powder 15gm Bottle 1 APPLIC TOPICAL (05:23)
[2018-09-28] MEDS: Enoxaparin 40 MG/0.4 ML Syringe SC (05:24)
[2018-09-28] MEDS: Minoxidil 2.5 MG Tablet PO (05:24)
[2018-09-28] MEDS: Senna/Docusate Sodium 1 Tablet 2 TABLET PO (05:24)
[2018-09-28] MEDS: Pantoprazole Sodium 20 MG Tablet PO (05:25)
[2018-09-28 06:30] VITALS: O2SAT 95
[2018-09-28] MEDS: LORazepam 1 MG Tablet PO (09:00)
[2018-09-28] MEDS: Aspirin 81 MG TAB.CHEW PO (09:02)
[2018-09-28 10:15] VITALS: PULSE 90; RESP 18; O2SAT 92
[2018-09-28 11:10] VITALS: BP 118/72; PULSE 88; RESP 17; TEMP 36.8; O2SAT 97
--- NOTE | 2018-10-01 16:22 | CASEMGMT ---
Insurance Notified insurance of resident discharge on 09/28/18 to home alone with home health care. Auth#[id number] LINDEN Das, [employer]AS[employer]OOM COORDINATOR
== END 2018-09-28 11:45 | disposition home health service (06) | DRG 948 ==
PROVIDERS: Admitting Provider Family Medicine Geriatric Medicine; Family Provider Family Medicine; PCP Family Medicine; Referring Provider Family Medicine Geriatric Medicine; Visit Provider Family Medicine Geriatric Medicine
DX: R53.81 Other malaise (principal); N39.0 Urinary tract infection, site not specified; E87.1 Hypo-osmolality and hyponatremia; G93.40 Encephalopathy, unspecified; B96.89 Other specified bacterial agents as the cause of diseases classified elsewhere; G25.81 Restless legs syndrome; B35.4 Tinea corporis; Z23 Encounter for immunization; E78.5 Hyperlipidemia, unspecified; E11.40 Type 2 diabetes mellitus with diabetic neuropathy, unspecified; I25.10 Atherosclerotic heart disease of native coronary artery without angina pectoris; K21.9 Gastro-esophageal reflux disease without esophagitis; G24.9 Dystonia, unspecified; F32.9 Major depressive disorder, single episode, unspecified; F41.9 Anxiety disorder, unspecified; I10 Essential (primary) hypertension; B35.1 Tinea unguium
CPT/HCPCS: 36415; 80048; 85025; 92526; 92610; 94640; 97110; 97116; 97162; 97166; 97530; 97535; 97802; 90670

== ENCOUNTER 2018-10-09 08:58 | Emergency (ER) | payer MEDICARE, SELFPAY ==
[2018-10-09 09:02] VITALS: BP 155/86; PULSE 84; RESP 16; TEMP 36.1; O2SAT 94; BMI 27.4
--- NOTE | 2018-10-09 09:19 | ED.VISSUMM ---
- ER Visit Summary Date of Service: 10/09/18 Chief Complaint: Nausea and vomiting History of Present Illness: The patient is a 77 F history of prior intracranial bleed. Has had a prior cholecystectomy. Patient states the last 2 days she has had some crampy abdominal discomfort that is basically resolved. Now with nausea and vomiting. Initially had some constipation use MiraLAX and now has loose stools. No melena. No hematemesis. No fever. She recently was hospitalized for a UTI and then had a stay in the TCU before she is been recently discharged. She does live alone. Her son is with her and he is the power of corporate associate attorney. Physical Examination: Older female no acute distress. Vital signs are stable. She is afebrile. H EENT exam mildly dry mixed memories. Neck nontender no lymphadenopathy. Lungs clear to auscultation bilaterally. Heart regular rate and rhythm no murmur. Abdomen is soft. Nondistended. No peritoneal signs. No hernia or masses. No signs of traction. Positive bowel sounds. No localizing right upper or lower quadrant tenderness. She is moving all 4 extremities. They are neurovascular intact. Back is nontender. Neurologically she is awake and alert with no focal motor deficits. Test Results: 2200. H&H 12 and 38. No bands. Electrolytes unremarkable sodium 133. Normal creatinine gap. Liver enzymes unremarkable. Lipase normal. UA negative except for positive ketones but no signs of infection. Due to the elevated white count and some mild abdominal distention I did do a CT abdomen pelvis with IV contrast. It showed a large right diaphragmatic hernia which she has had a seen on prior films. However there is no bowel obstruction. Has had both a Mariana cystectomy and appendectomy. There are incidental findings of renal stones. But no acute process in the CAT scan. Emergency Department Course and Treatment: Patient treated with a liter normal saline. IV Zofran. Currently I do not feel she needs any imaging. We will repeat exams patient feels much better after the IV fluids and the IV Zofran. Her nausea since resolved. I long discussion the patient and her son and they are both comfortable with her being discharged home. On repeat exam at 1346 her abdomen is benign. Treatment Plan: Nausea. Plenty of fluids and rest. Follow-up with her primary care physician Disposition: discharge Impression: Acute nausea ,vomiting and diarrhea with abdominal pain of uncertain etiology This note was generated with Pierce dictation software. It may contain incorrect words, spelling, and punctuation that were not noted in review of the chart prior to signing ED Disposition - Plan for ED Patient: Chief Complaint: Abd Pain Referrals: Jose L Valenzuela MD [Primary Care Provider] -
--- NOTE | 2018-10-09 09:37 | ED.RN ---
pt reported in triage n/v with constipation, with some relief with pepto. states she was recently discharged from tcu, and it began shortly after discharge.
[2018-10-09] MEDS: Ondansetron 4 MG/2 ML Vial IV (10:08)
[2018-10-09] MEDS: 0.9% Normal Saline 1,000 ML 1000 ML IV (10:08)
[2018-10-09 10:09] LABS: Absolute Lymphocyte Count 1.56 X10^3/ul (0.83-4.51); Absolute Neutrophil Count 15.9 X10^3/uL (2.0-7.7); Basophil# 0.02 X10^3/uL; Basophil% 0.1 % (0-1); Eosinophil# 0.05 X10^3/uL; Eosinophils% 0.3 % (0-5); Hematocrit 38.9 % (37-47); Hemoglobin 12.4 g/dl (12.0-15.0); Lymphocyte # 1.56 X10^3/ul (4.0); Lymphocyte % 8.6 % (19-41); Mean Corp Hgb Conc 31.9 g/gl (32-36); Mean Corpuscular Hgb 29.1 pg (27.0-32.0); Mean Corpuscular Volume 91.3 fL (81-99); Mean Platelet Vol. 9.1 fl (6.2-12.0); Monocyte# 0.59 X10^3/uL; Monocyte% 3.2 % (0-10); Neutrophil % 87.5 % (47-70); Platelet Count 209 K/mm3 (150-450); RBC Distribution Width SD 45.8 fl (35.1-43.9); Red Blood Count 4.26 M/mm3 (4.2-5.4); White Blood Count 18.2 K/mm3 (4.4-11.0)
[2018-10-09 10:10] LABS: POSITIVE COUNT NO; POSITIVE DIFFERENTIAL NO; POSITIVE MORPHOLOGY NO
[2018-10-09 10:27] LABS: AST(SGOT) 16 U/L (15-37); Alanine Aminotransfer ALT/SGPT 18 U/L (13-56); Albumin, Serum 3.4 g/dL (3.2-5.0); Alkaline Phosphatase 124 U/L (45-117); Anion Gap 5 (5-15); BUN 17 mg/dL (7-18); BUN/Creat Ratio 18.2 RATIO (10-20); Chloride 100 mmol/L (98-107); Creatinine, Serum 0.93 mg/dL (0.55-1.02); EST Glomerular Filtration Rate 61 mL/min (>60); Est Glom Filt Rate - Afr Amer 74 mL/min (>60); Estimated Creatinine Clearance 42.36 ml/min; Globulin 3.8 g/dL (2.2-4.2); Glucose 99 mg/dL (74-106); Lipase 44 U/L (73-393); Potassium 4.4 mmol/L (3.5-5.1); Protein, Total 7.2 g/dL (6.4-8.2); Sodium Level 133 mmol/L (136-145)
[2018-10-09 10:45] LABS: Bacteria 0 SEEN /hpf (None Seen); Mucous, Urine 0 SEEN /hpf (<or=2+)
--- NOTE | 2018-10-09 10:46 | CT_ITS ---
STUDY: CT ABDOMEN AND PELVIS WITH CONTRAST REASON FOR EXAM: Female, 77 years old. ABD PAIN AND DISTENTION/N/V/D. Hx of prior appendectomy and cholecystectomy RADIATION DOSAGE (If Supplied By Facility): CTDIvol = ( 9.89 ) mGy, DLP = ( 1051.15 ) mGycm TECHNIQUE: Transaxial images were obtained from the dome of the diaphragm to the symphysis pubis without oral contrast. 100ml ml of Isovue 300 contrast was administered. Sagittal and coronal images were reconstructed. Individualized dose optimization techniques were used for this CT. COMPARISON: October 25, 2017 CTA abdomen and pelvis. FINDINGS: Hypoventilatory changes noted at the lung bases bilaterally. There is a large abdominal hernia into which small and large bowel extends. This is a diaphragmatic hernia on the right. No evidence of obstruction. The visualized portions of the heart are within normal limits. Normal liver. There are surgical clips in the gallbladder fossa consistent with a prior cholecystectomy. No biliary ductal dilatation. Normal spleen. There is diffuse atrophy of the pancreas. Normal bilateral adrenal glands. Normal right kidney. There is a large extrarenal pelvis. Nonobstructing calculus is noted in association with the midpole of the left kidney measuring approximately 5 x 4 mm there is a probable hyperdense cyst of the posterior upper pole of the left kidney, present previously measuring approximately 1.3 cm. Small simple appearing cortical cyst of the posterior right kidney noted The stomach is below the diaphragm. It is partially contracted otherwise unremarkable. Normal small intestine. Normal colon. There are surgical clips in the region of the appendix consistent with a prior appendectomy. Mild atherosclerosis and tortuosity of the aorta noted. Normal inferior vena cava. Normal retroperitoneum. Normal urinary bladder. Large calcified uterine fibroid present. Normal abdominal wall. Degenerative spondylosis with multilevel marginal osteophytes and vacuum disc phenomena noted. There is levoscoliosis. Left hip arthroplasty present. CT/Abdomen/Pelvis W IV Cont ONLY IMPRESSION: Large right-sided diaphragmatic hernia with herniated loops of large and small bowel but no evidence of obstruction. This was present previously. Nephrolithiasis of the left kidney also present previously with no evidence of obstruction. Nonobstructing left renal calculus remains. There also remains a lesion of the left kidney likely to represent a hyperdense cyst, present previously and without change. Fibroid uterus. See above. Electronically Signed: Deanne Dan MD at 13:39 EST , Service support ,
[2018-10-09 10:49] LABS: Color, Urine Yellow (Yellow); Glucose, Dipstick Normal (Normal); Ketone-Dipstick 15 mg/dl (Negative); Leukocyte Esterase-Dipstick 100 /ul (Negative); Nitrite-Dipstick Negative (Negative); Occult Blood-Urine 25 /ul (Negative); Protein-Dipstick Negative (Negative); Urine Bilirubin Dipstick Negative (Negative); Urine Clarity Sl. Cloudy (Clear); Urine Urobilinogen Normal (Normal); Urine pH 6.5 (5.0 - 8.0)
[2018-10-09 11:07] LABS: Red Blood Cells-Urine 0-5 SEEN /hpf (0-5); Squamous Epithelial Cells - UA 0-5 SEEN /hpf (5-10); White Blood Cells 0-5 SEEN /hpf (0-5)
[2018-10-09 12:57] VITALS: BP 154/75; PULSE 87; RESP 16; O2SAT 87
[2018-10-09 12:58] VITALS: O2SAT 95
--- NOTE | 2018-10-09 13:55 | ED.DEP ---
ED Disposition - Plan for ED Patient: Disposition: Home or Assisted Living Chief Complaint: Abd Pain Instructions: ED Abdominal Pain Unkn Cause Prescriptions: Ondansetron [Zofran Odt] 4 mg PO Q8H PRN PRN #7 tab PRN Reason: Nausea Referrals: Jose L Valenzuela MD [Primary Care Provider] - As Needed Additional Instructions: Plenty of fluids and rest. Zofran as needed for nausea. Follow-up with your doctor as needed.
[2018-10-09 14:00] VITALS: BP 148/68; PULSE 81; RESP 16; O2SAT 98
[2018-10-09 14:02] VITALS: BP 148/68; PULSE 81; RESP 16; O2SAT 98
--- OUTSIDE RECORDS SUMMARY | 2018-12-14 02:02 | XMS RPT_ITS ---
:1940 Author Organization OHIP Support Name Relationship Address Phone ARNULFO HYATTY/POA Unavailable [address] + [place] [address] R Unavailable Unavailable Unavailable EDMAR, KALIA Unavailable [address] + [place] [address] R Unavailable Unavailable Unavailable EDMAR, KALIA Unavailable [address] + [place] [address] R Unavailable Unavailable Unavailable EDMAR, KALIA Unavailable [address] + [place] [address] R Unavailable Unavailable Unavailable EDMAR, KALIA Unavailable [address] + [place] [address] R Unavailable Unavailable Unavailable EDMAR, KALIA Unavailable [address] + [place] [address] R Unavailable Unavailable Unavailable EDMAR, KALIA Unavailable [address] + [place] [address] R Unavailable Unavailable Unavailable EDMAR, KALIA Unavailable Unavailable + [place] [address] R Unavailable Unavailable Unavailable EDMAR, KALIA Unavailable [address] + [place] [address] R Unavailable Unavailable Unavailable EDMAR, KALIA Unavailable Unavailable + [place] [address] R Unavailable Unavailable Unavailable EDMAR, KALIA Unavailable Unavailable + [place] [address] R Unavailable Unavailable Unavailable EDMAR, KALIA Unavailable Unavailable + [place] [address] R Unavailable Unavailable Unavailable EDMAR, KALIA Unavailable Unavailable + [place] [address] R Unavailable Unavailable Unavailable EDMAR, KALIA Unavailable Unavailable + [place] [address] R Unavailable Unavailable Unavailable EDMAR, KALIA Unavailable Unavailable + [place] [address] R Unavailable Unavailable Unavailable EDMAR, KALIA Unavailable . + [place] [address] R Unavailable Unavailable Unavailable EDMAR, KALIA Unavailable Unavailable + [place] [address] R Unavailable Unavailable Unavailable EDMAR, KALIA Unavailable . + [place] [address] R Unavailable Unavailable Unavailable Care Team Providers Name Role Phone CASSANDRA JIMENEZ Attending Unavailable JOSE L VALEZNUELA Referring Unavailable KEMI, CASSANDRA Referring Unavailable KMEI, CASSANDRA Referring Unavailable RAIZA LUDWIG Admitting Unavailable RAIZA LUDWIG Attending Unavailable Valenzuela, Jose L Primary Care Unavailable Emanuel Boyer Attending Unavailable Nicolas, Jose L Primary Care Unavailable Jade, Rommel Admitting Unavailable Jade, Rommel Attending Unavailable Cresencio Barkley Consulting Unavailable Rick Lambert Attending Unavailable UngurShelley Referring Unavailable Pradip, Perez Chi Admitting Unavailable Pradip, Perez Chi Attending Unavailable Pradip, Perez Chi Referring Unavailable Nicolas, Jose L Primary Care Unavailable Jade, Rommel Admitting Unavailable Vasiliy Conte Attending Unavailable Tereletsevette, Rommel Referring Unavailable Valenzuela, Jose L Primary Care Unavailable Vasiliy Conte Consulting Unavailable Jade, Rommel Admitting Unavailable Vasiliy Conte Attending Unavailable Jade, Rommel Referring Unavailable Valenzuela, Jose L Primary Care Unavailable Vasiliy Conte Consulting Unavailable Nicolas, Jose L Primary Care Unavailable Termarta, Rommel Admitting Unavailable Tereletsevette, Rommel Referring Unavailable Vasiliy Conte Attending Unavailable Valenzuela, Jose L Attending Unavailable Valenzuela, Jose L Primary Care Unavailable Valenzuela, Jose L Attending Unavailable Valenzuela, Jose L Primary Care Unavailable Valenzuela, Jose L Attending Unavailable Valenzuela, Jose L Primary Care Unavailable Pradip, Perez Chi Admitting Unavailable Pradip, Perez Chi Attending Unavailable Nicolas, Jose L Primary Care Unavailable Tereletsky, Rommel Admitting Unavailable Tereletsevette, Rommel Attending Unavailable Valenzuela, Jose L Primary Care Unavailable TereletsRommel alas Consulting Unavailable Valenzuela, Jose L Primary Care Unavailable Tereletsky, Rommel Admitting Unavailable Maddy Bolaños Attending Unavailable Estefania Trinidad Consulting Unavailable Gurmeet Urena Consulting Unavailable Royaky, Rommel Admitting Unavailable Vasiliy Conte Attending Unavailable Rommel Hansen Referring Unavailable Nicolas, Jose L Primary Care Unavailable KittoVasiliy spence Consulting Unavailable Valenzuela, Jose L Primary Care Unavailable Ungur, Remus Attending Unavailable Nicolas, Jose L Primary Care Unavailable Dilip Okeefe Attending Unavailable Jade, Rommel Admitting Unavailable Tereletsky, Rommel Attending Unavailable Maineeletsevette, Rommel Referring Unavailable Nicolas, Jose L Primary Care Unavailable Tereletsky, Rommel Consulting Unavailable Tereletsky, Rommel Admitting Unavailable Robotham, Estefania Attending Unavailable Valenzuela, Jose L Primary Care Unavailable Robotham, Estefania Consulting Unavailable AyannaGurmeet Consulting Unavailable White, Maddy Consulting Unavailable AWENDER, H S Admitting Unavailable DIANA GEORGE Primary Care Unavailable AWENDER, H S Attending Unavailable PROBLEMS PROBLEMS DATE TYPE CONDITION / CODE ATTENDING STATUS SOURCE 09/30/2018 Unknown R53.81 - Other Pradip, Perez Chi Active [place] malaise / Community R53.81(ICD-10) Hospital Repository 09/07/2018 Unknown N39.0 - Urinary Ungur, Remus Active [place] tract infection, Community site not specified Hospital / N39.0(ICD-10) Repository 10/08/2018 Unknown M79.89 - Other Rick Lambert Active [place] specified soft Community tissue disorders / Hospital M79.89(ICD-10) Repository 05/01/2018 Unknown E87.1 - Jose L Valenzuela Active [place] Hypo-osmolality and Community hyponatremia / Hospital E87.1(ICD-10) Repository 01/24/2018 Unknown R60.9 - Edema, Jose L Valenzuela Active [place] unspecified / Community R60.9(ICD-10) Hospital Repository 01/01/2018 Active Diaphragmatic NA Active [place] hernia without Clinic Main obstruction or [place] gangrene / Repository K44.9(ICD-10) 12/12/2017 Unknown R06.02 - Shortness Dilip Okeefe Active [place] of breath / Community R06.02(ICD-10) Hospital Repository 12/12/2017 Unknown K44.9 - Pradip, Perez Chi Active [place] Diaphragmatic Community hernia without Hospital obstruction or Repository gangrene / K44.9(ICD-10) 12/12/2017 Unknown 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, 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, Hospital unspecified / Repository J44.9(ICD-10) 10/26/2017 Active Diaphragmatic AWENDER, Active [place] hernia with [facility] Other obstruction, [place] without gangrene / Repository K44.0(ICD-10) 10/26/2017 Admitting Unknown / AWENDER, H S Active [facility] UNK(Unknown) Health System Repository PROCEDURES PROCEDURES No Procedure Records FoundRESULTS RESULTS EMERGENCY DEPARTMENT Observed: 10/09/2018 Status: F Source: [place] SUMMARY 4:05 PM [facility] REPOSITORY [facility] Medical Records Department [address] [place] [address] Emergency Department Summary 10/09/18 0919 MR#: [id number] Acct: [id number] Name: VEE HYATT Rep #: [id number] : 1940 77 From: Emanuel Boyer MD [...] her and 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 Physical Examination: Older female no acute distress. [...] uncertain etiology This note was generated with DeepField dictation software. It may contain incorrect words, [...] your Primary Care Provider. Call [facility] ([phone]) or report to the closest Emergency Room. Call 911 if necessary. 10/09/18 8293 <Electronically signed by Emanuel Boyer MD> Date Emanuel Boyer MD Cosigner Signature (If Indicated): Date CC: Jose L Valenzuela MD DISCHARGE INSTRUCTION Observed: 10/09/2018 Status: F Source: [place] 4:04 PM [facility] REPOSITORY [facility] Medical Records Department [address] [place] [address] Discharge Instruction 10/09/18 1355 MR#: [id number] Acct: [id number] Name: VEE HYATT Rep #: [id number] : 1940 77 From: Emanuel Boyer MD [...] problems, contact your Primary Care Provider. Call [facility] ([phone]) or report to the closest Emergency Room. Call 911 if necessary. 10/09/18 1604 <Electronically signed by Emanuel Boyer MD> Date Emanuel Boyer MD Cosigner Signature (If Indicated): Date CC: Jose L Valenzuela MD ABDOMEN/PELVIS W IV CONT Observed: 10/09/2018 Status: F Source: [place] ONLY 10:46 AM [facility] REPOSITORY [facility] Imaging Services [address] [place] [address] Abdomen/Pelvis W IV Cont ONLY MR#: [id number] Acct: [id number] Name: VEE HYATT Rep #: [id number] : 1940 F 77 From: Deanne Dan MD PCP: Jose L Valenzuela MD Status: [facility] ER Study: Abdomen/Pelvis W IV Cont ONLY Date of Exam: 10/09/18 Exam# [id number] Ordering Dr: Emanuel Boyer MD STUDY: CT [...] Emanuel Boyer MD; Jose L Valenzuela MD Card Filer: Signed URINALYSIS, COMPLETE Collected: 10/09/2018 Status: F Source: [place] 10:35 AM [facility] REPOSITORY Order Comment: Order Date: 10/09/18 Has [...] URINE SEEN Performed By: #### L400.0001 #### [facility] [place], [address] CBC W/DIFF, AUTOMATED Collected: 10/09/2018 Status: F Source: [place] 10:01 AM [facility] REPOSITORY TYPE CODE TESTS RESULT OUT OF [...] Lymph 1.56 Performed By: #### L100.0100 #### [facility] [place], [address] BASIC METABOLIC Collected: 10/09/2018 Status: F Source: [place] PROFILE (BMP) 10:01 AM [facility] REPOSITORY TYPE CODE TESTS RESULT OUT OF [...] Performed By: #### L500.2500, L500.3400, L501.2450 #### [facility] [address] [place], [address] LIVER PROFILE Collected: 10/09/2018 Status: F Source: [place] 10:01 AM [facility] REPOSITORY TYPE CODE TESTS RESULT OUT OF [...] Performed By: #### L500.2500, L500.3400, L501.2450 #### [facility] [address] [place], [address] LIPASE Collected: 10/09/2018 Status: F Source: [place] 10:01 AM [facility] REPOSITORY TYPE CODE TESTS RESULT OUT OF REFERENCE UNITS RANGE LAB L501.2450 73-393 U/L Low LIPASE 44 Performed By: #### L500.2500, L500.3400, L501.2450 #### [facility] [address] [place], [place], [address] CBC W/DIFF, AUTOMATED Collected: 09/27/2018 Status: F Source: [place] 5:55 AM [facility] REPOSITORY TYPE CODE TESTS RESULT OUT OF [...] Lymph 1.42 Performed By: #### L100.0100 #### [facility] [address] [facility] [place], [address] BASIC METABOLIC Collected: 09/27/2018 Status: F Source: [place] PROFILE (BMP) 5:26 AM [facility] REPOSITORY TYPE CODE TESTS RESULT OUT OF [...] GAP 8 Performed By: #### L500.2500 #### [facility] [address] [place], [address] DISCHARGE SUMMARY Observed: 09/25/2018 Status: F Source: [place] 8:42 PM [facility] REPOSITORY [facility] Medical Records Department [address] [place] [address] Discharge Summary 09/25/182039 MR#: [id number] Acct: [id number] Name: VEE HYATT Rep #: [id number] : 1940 77 From: Perez Moseley MD PCP: Jose L Valenzuela MD Status: ADM IN Location: [place] [address] Discharge Date and Diagnosis - Problem List [...] fixation (Chronic) left femur 06/22, Dr Spears, [facility] Tinea unguium (Chronic) Dyskinesia, tardive (Chronic) [...] 76 16 127/74 H 93 09/25/18 15:51 01/02/19 15:51 09/25/18 15:51 09/25/18 15:51 09/25/18 15:51 [...] HEALTH PROGRESS Observed: 09/25/2018 Status: F Source: [place] NOTE 8:42 PM [facility] REPOSITORY [facility] Medical Records Department [address] [place] [address] Home Health Progress Note Flpk-zk-Ohmt Encounter Encounter Date: 09/25/182041 MR#: [id number] Acct: [id number] Name: VEE HYATT Rep #: [id number] : 1940 77 From: Perez Moseley MD PCP: Jose L Valenzuela MD Status: ADM IN Location: [place] [address] Home Health Note - Plan Overview of reason of hospitalization: The patient is a 77 year old Female with below past medical history hospitalized for encephalopathy secondary to C. koseri UTI, complicated by dehydration, insomnia, admitted to U with debility, here for rehabilitation, strengthening, prior [...] DISCHARGE INSTRUCTION Observed: 09/25/2018 Status: F Source: [place] 8:40 PM [facility] REPOSITORY [facility] Medical Records Department [address] [place] [address] Instructions for Home/Discharge Instructions 09/25/182038 MR#: [id number] Acct: [id number] Name: VEE HYATT Rep #: [id number] : 1940 77 From: Perez Moseley MD [...] Uncontrolled pain Allergies/Adverse Reactions: Allergies acetaminophen [From [place]] Adverse Reaction (Verified 09/11/18 09:12) Nausea hydrocodone [From [place]] Adverse Reaction (Verified 09/11/18 09:12) Nausea sulfamethoxazole [...] BASIC METABOLIC Collected: 09/20/2018 Status: F Source: [place] PROFILE (BMP) 5:17 AM [facility] REPOSITORY TYPE CODE TESTS RESULT OUT OF [...] GAP 6 Performed By: #### L500.2500 #### [facility] [address] [place], [address] 12 LEAD ELECTROCARDIOGRAM Observed: 09/13/2018 Status: F Source: [place] 1:19 PM [facility] REPOSITORY [facility] Cardiovascular Services [address] [address] 12 Lead EKG 09/09/18 1150 MR#: [id number] Acct: [id number] Name: VEE HYATT Rep #: [id number] : 1940 77 From: Orville Dumont MD Attending Dr: Vasiliy Conte MD Status: DIS IN Ordering Dr: Kai Noble MD Date: 09/09/18 [place] [facility] [place] F C Admitted: 09/09/18 Test Reason : NAUSEA Blood Pressure : / mmHG Vent. Rate : 083 BPM Atrial Rate : 083 BPM P-R Int : 166 ms QRS Dur : 086 ms QT Int : 394 ms P-R-T Axes : 058 -06 037 degrees QTc Int : 462 ms Normal sinus rhythm Normal ECG Confirmed by NAVIN ARRIOLA, [place] ([id number]), editor in chief KELLEN SUAREZ ([id number]) on 09/13/2018 1:19:02 PM Referred By: Rommel Hansen Confirmed By:ORVILLE DUMONT MD 09/13/18 1319 Date Orville Dumont MD CC: Vasiliy Conte MD; Kai Noble MD; Rommel Hansen DO; Jose L Valenzuela MD Signed CBC W/DIFF, AUTOMATED Collected: 09/13/2018 Status: F Source: [place] 5:12 AM [facility] REPOSITORY TYPE CODE TESTS RESULT OUT OF [...] Lymph 1.37 Performed By: #### L100.0100 #### [facility] [address] [place] [address]. [place], [place], [address] BASIC METABOLIC Collected: 09/13/2018 Status: F Source: [place] PROFILE (BMP) 5:12 AM [facility] REPOSITORY TYPE CODE TESTS RESULT OUT OF [...] GAP 6 Performed By: #### L500.2500 #### [facility] [address] [facility] [place], [address] HISTORY AND PHYSICAL Observed: 09/12/2018 Status: F Source: [place] EXAM 10:06 PM [facility] REPOSITORY [facility] Medical Records Department [address] [place] [address] History and Physical 09/12/182144 MR#: [id number] Acct: [id number] Name: VEE HYATT Rep #: [id number] : 1940 77 From: Perez Moseley MD PCP: Jose L Valenzuela MD Status: ADM IN [facility] Problem List (1) Encephalopathy Status: Acute (2) [...] past medical history presented to [facility] Emergency Department 09/09/2018 with confusion. 09/09/2018 [...] PT/OT for debility. IV Ancef for C. koseri urinary tract infection. Vistaril for sleep. Compression [...] fixation (Chronic) left femur 06/22, Dr Spears, [facility] Tinea unguium (Chronic) Dyskinesia, tardive (Chronic) Brain aneurysm (Chronic) Hypertension (Chronic) Diabetic neuropathy (Chronic) Allergies acetaminophen [From [place]] Adverse Reaction (Verified 09/11/18 09:12) Nausea hydrocodone [From [place]] Adverse Reaction (Verified 09/11/18 09:12) Nausea sulfamethoxazole [From Bactrim] Adverse Reaction (Verified 09/11/18 09:11) Nausea trimethoprim [From Bactrim] Adverse Reaction (Verified 09/11/18 09:11) Nausea Home Medications: Ambulatory Orders Medication Instructions Recorded Fluoxetine [Prozac] 60 mg PO DAILY 03/17/17 Surgical History: appendectomy, cholecystectomy, herniorrhaphy, tonsillectomy, - - 06/22/15 left hip CRIF Psychiatric History: Anxiety, Depression 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 * Insomnia - Melatonin 10MG QHS, Doxepin 25MG QHS PRN. * Anxiety - Lorazepam 1MG BID, resident doing well with chronic prison use, GDR clinically contraindicated. * Tinea Corporis - Nystatin powder BID PRN. * GERD - Pantoprazole 20MG daily, consider H2 carlton for better safety profile. * Restless Leg Syndrome - Mirapex 0.75MG QHS. 09/12/182205 <Electronically signed by Perez Moseley MD> Date Perez Moseley MD Cosigner Signature: Date (if applicable) CC: Jose L Valenzuela MD; Perez Moseley MD Signed DISCHARGE SUMMARY Observed: 09/12/2018 Status: F Source: [place] 2:42 PM [facility] REPOSITORY [facility] Medical Records Department [address] [place] [address] Discharge Summary 09/12/18 0922 MR#: [id number] Acct: [id number] Name: VEE HYATT Rep #: [id number] : 1940 77 From: Vasiliy Conte MD PCP: Jose L Valenzuela MD Status: ADM IN [place] [facility] [id number] Discharge Date and Diagnosis Date of Admission: [...] fixation (Chronic) left femur 06/22, Dr Spears, [facility] Tinea unguium (Chronic) Dyskinesia, tardive (Chronic) Brain aneurysm (Chronic) Hypertension (Chronic) Diabetic neuropathy (Chronic) Hospital Course and Treatment Operations: None Summary of Care Provided: Patient is a 77-year-old lady recently diagnosed with UTI seen in the emergency department discharged home on Bactrim and [place] presented with worsening confusion and significant nausea [...] deconditioning requested for PT OT eval and socially responsible investment adviser to assist with discharge planning Objective: GENERAL: [...] Valenzuela MD [Primary Care Provider] - Disposition: Residential facility Minutes spent on discharge:: 35 Medical Necessity - Tobacco Use Smoking Status: Never smoker Tobacco Use: Non-smoker Meaningful Use Info Meaningful Use Diagnoses (Choose all that apply): None applicable Code Visit Inpatient E AND M: 21659 Disch Hosp 09/12/18 0882 <Electronically signed by Vasiliy Conte MD> Date Vasiliy Conte MD Cosigner Signature (if applicable): Date CC: Vasiliy Conte MD; Jose L Valenzuela MD Signed TRANSFER TO EXTENDED Observed: 09/12/2018 Status: F Source: [place] [facility] 9:20 AM [facility] REPOSITORY [facility] Medical Records Department [address] [place] [address] Transfer to [facility] MR#: [id number] Acct: [id number] Name: VEE HYATT Rep #: [id number] : 1940 77 From: Vasiliy Conte MD PCP: Jose L Valenzuela MD Status: ADM IN VEE HYATT (Patient) (Health Ins. Claim No.) (Day of Discharge to Facility) Certification of patient admission REQUIRED AT TIME OF ADMISSION. I CERTIFY THAT POST-HOSPITAL ECF SERVICES ARE REQUIRED TO BE GIVEN ON AN IN-PATIENT BASIS BECAUSE OF THE ABOVE NAMED PATIENT'S NEED FOR FCI CARE ON A CONTINUING BASIS FOR THE CONDITION(S) FOR WHICH HE/SHE WAS RECEIVING IN-PATIENT HOSPITAL SERVICES PRIOR TO HIS/HER TRANSFER TO THE ECF. 09/12/18919 <Electronically signed by Vasiliy Conte MD> Date Vasiliy Conte MD - Diet 09/09/18 14:51 Diet: Regular Diet Food consistency:: Regular Liquid Consistency:: Regular/Thin - Routine Orders/Code Status Code Status: Full Code - Therapies Physical Therapy: Eval and Treat Occupational Therapy: Eval and Treat - Allergies/Procedures Done in Hospital Allergies/Adverse Reactions: Allergies acetaminophen [From [place]] Adverse Reaction (Verified 09/11/18 09:12) Nausea hydrocodone [From [place]] Adverse Reaction (Verified 09/11/18 09:12) Nausea sulfamethoxazole [...] F Source: [place] NO DIFF 5:46 AM [facility] REPOSITORY TYPE CODE TESTS RESULT OUT OF [...] MPV 8.3 Performed By: #### L100.0500 #### [facility] [address] [place], [place], [address] BASIC METABOLIC Collected: 09/12/2018 Status: F Source: [place] PROFILE (BMP) 5:46 AM [facility] REPOSITORY TYPE CODE TESTS RESULT OUT OF [...] GAP 7 Performed By: #### L500.2500 #### [facility] [address] [place] [address]. [place], [address] BASIC METABOLIC Collected: 09/11/2018 Status: F Source: [place] PROFILE (BMP) 5:16 AM [facility] REPOSITORY TYPE CODE TESTS RESULT OUT OF [...] 5 Performed By: #### L500.2500, L501.5200 #### [facility] [address] [place], [address] MAGNESIUM Collected: 09/11/2018 Status: F Source: [place] 5:16 AM [facility] REPOSITORY TYPE CODE TESTS RESULT OUT OF RANGE REFERENCE UNITS LAB L501.5200 1.6-2.6 mg/dL Normal MG 1.8 Performed By: #### L500.2500, L501.5200 #### [facility] [address] [place], [place], [address] CBC-COMPLETE BLOOD CNT Collected: 09/11/2018 Status: F Source: [place] NO DIFF 5:16 AM [facility] REPOSITORY TYPE CODE TESTS RESULT OUT OF [...] MPV 8.5 Performed By: #### L100.0500 #### [facility] [place], [address] CBC W/DIFF, AUTOMATED Collected: 09/10/2018 Status: F Source: [place] 5:25 AM [facility] REPOSITORY TYPE CODE TESTS RESULT OUT OF [...] Lymph 1.03 Performed By: #### L100.0100 #### [facility] [address] [place], [address] BASIC METABOLIC Collected: 09/10/2018 Status: F Source: [place] PROFILE (BMP) 5:25 AM [facility] REPOSITORY TYPE CODE TESTS RESULT OUT OF [...] GAP 8 Performed By: #### L500.2500 #### [facility] [address] [place], [address] HISTORY AND PHYSICAL Observed: 09/09/2018 Status: F Source: [place] EXAM 7:47 [facility] REPOSITORY [facility] Medical Records Department [address] [place] [address] History and Physical 09/09/181924 MR#: [id number] Acct: [id number] Name: VEE HYATT Rep #: [id number] : 1940 77 From: Rommel Hansen DO PCP: Jose L Valenzuela MD Status: ADM AKIRA Y Location: [place] [address] Problem List (1) Generalized weakness Status: Acute (2) Confusion Status: Acute History of Present Illness Date of Admission: 09/09/18 Chief Complaint: Confusion, generalized weakness The patient is a 77 year old F was seen in the emergency room today at [facility] after being brought in at the [...] fixation (Chronic) left femur 06/22, Dr Spears, [facility] Tinea unguium (Chronic) Dyskinesia, tardive (Chronic) Brain aneurysm (Chronic) Hypertension (Chronic) Diabetic neuropathy (Chronic) Allergies No Known Allergies Allergy (Verified 09/09/18 10:44) Home Medications: Ambulatory Orders Medication Instructions Recorded Surgical History: appendectomy, cholecystectomy, herniorrhaphy, tonsillectomy, - - 06/22/15 left hip CRIF Psychiatric History: Anxiety, Depression 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 Lives: Alone Smoking Status: Never smoker [...] F 87 20 H 153/85 H 99 12/17/18 16:02 09/09/18 18:12 09/09/18 18:58 09/09/18 16:02 [...] will be placed in observation status on Medr 3, she will be given IV fluids, [...] Preston wraps on the patient, she has [id number]-[id number]-[id number] compression stockings at home which she wears Code Visit OBSV E AND M: [id number] Initial observation care L3 09/09/181946 <Electronically signed by Rommel Hansen DO> Date Rommel Hansen DO Cosigner Signature: Date (if applicable) CC: Rommel Hansen DO; Jose L Valenzuela MD Signed EMERGENCY DEPARTMENT Observed: 09/09/2018 Status: F Source: [place] SUMMARY 2:06 PM [facility] REPOSITORY [facility] Medical Records Department [address] [place] [address] Emergency Department Summary 09/09/18 1404 MR#: [id number] Acct: [id number] Name: VEE HYATT Rep #: [id number] : 1940 77 From: Kai Noble MD [...] UTI, delirium This note was generated with DeepField dictation software. It may contain incorrect words, [...] your Primary Care Provider. Call [facility] ([phone]) or report to the closest Emergency Room. Call 911 if necessary. 09/09/18 1406 <Electronically signed by Kai Noble MD> Date Kai Noble MD Cosigner Signature (If Indicated): Date CC: Jose L Valenzuela MD URINALYSIS, COMPLETE Collected: 09/09/2018 Status: F Source: [place] 12:00 PM [facility] REPOSITORY Order Comment: Order Date: 09/09/18 How was Urine Obtained? BEAD INSPECTOR TO SPECIFY TYPE CODE TESTS RESULT OUT [...] AMORPHOUS 1+ Performed By: #### L400.0001 #### [facility] [address] [facility] [place], [address] Observed: 09/09/2018 Status: F Source: [place] CULTURE, URINE 12:00 PM [facility] REPOSITORY Order Date: 09/09/18 Urine Culture Culture exhibits no growth. Performed By: #### M100.0650 #### [facility] [address] [facility] [place], [address] CBC W/DIFF, AUTOMATED Collected: 09/09/2018 Status: F Source: [place] 11:45 AM [facility] REPOSITORY TYPE CODE TESTS RESULT OUT OF [...] Lymph 0.69 Performed By: #### L100.0100 #### [facility] [address] [place], [place], [address] PROTHROMBIN TIME W/INR Collected: 09/09/2018 Status: F Source: [place] 11:45 AM [facility] REPOSITORY TYPE CODE TESTS RESULT OUT OF RANGE REFERENCE UNITS LAB L300.4150 11.7-14.9 SECONDS Normal PROTIME 14.0 LAB L300.4200 Normal INR 1.1 Performed By: #### L300.3900, L300.4310 #### [facility] [address] [place], [address] PARTIAL THROMBOPLAST Collected: 09/09/2018 Status: F Source: [place] TIME 11:45 AM [facility] REPOSITORY TYPE CODE TESTS RESULT OUT OF RANGE REFERENCE UNITS LAB L300.4310 24.1-36.2 Seconds Normal PTT 26.3 Performed By: #### L300.3900, L300.4310 #### [facility] [address] [place], [address] COMPREHENSIVE METABOLIC Collected: 09/09/2018 Status: F Source: [place] PROFIL 11:45 AM [facility] REPOSITORY TYPE CODE TESTS RESULT OUT OF [...] GAP 7 Performed By: #### L500.4050 #### [facility] [address] [place], [address] LACTIC ACID Collected: 09/09/2018 Status: F Source: [place] 11:45 AM [facility] REPOSITORY Order Comment: Yes/No query for Sepsis Lactate Rule Y TYPE CODE TESTS RESULT OUT OF RANGE REFERENCE UNITS LAB L503.6005 0.4-2.0 mmol/L Normal LACTIC ACID 0.9 Performed By: #### L503.6005 #### [facility] [address] [place] [address], [address] Observed: 09/09/2018 Status: F Source: [place] CULTURE, BLOOD (WB) 11:45 AM [facility] REPOSITORY BC No growth in 5 days. Performed By: #### M200.1000 #### [facility] [place], [address] Observed: 09/09/2018 Status: F Source: [place] CULTURE, BLOOD (WB) 11:30 AM [facility] REPOSITORY BC No growth in 5 days. Performed By: #### M200.1000 #### [facility] [place], [address] CHEST 1 VIEW Observed: 09/09/2018 Status: F Source: [place] (PORTABLE) 11:25 AM [facility] REPOSITORY [facility] Imaging Services [address] [place] [address] Chest 1 View (Portable) MR#: [id number] Acct: [id number] Name: VEE HYATT Rep #: [id number] : 1940 F 77 From: Mendoza Ramirez MD PCP: Jose L Valenzuela MD Status: PRE ER Study: Chest 1 View (Portable) Date of Exam: 09/09/18 Exam# [id number] Ordering Dr: Kai Noble MD STUDY: X-RAY [...] Kai Noble MD; Jose L Valenzuela MD Card Filer: Signed VENOUS DUPLEX LOWER Observed: 09/09/2018 Status: F Source: [place] EXTREMITY 6:02 AM [facility] REPOSITORY [facility] Cardiovascular Services [address] [place] [address] Venous Duplex US, Unilateral 09/07/18 1133 MR#: [id number] Acct: [id number] Name: VEE HYATT Rep #: [id number] : 1940 77 From: Rick Lambert MD [...] Dictated: 09/07/18 1133 Date Transcribed: 09/09/18 0602 Card Filer: Signed DISCHARGE INSTRUCTION Observed: 09/07/2018 Status: F Source: [place] 11:49 AM [facility] Medical Records Department [address] [place] [address] Discharge Instruction 09/07/18 1147 MR#: [id number] Acct: [id number] Name: VEE HYATT Rep #: [id number] : 1940 77 From: Shelley Sy DO PCP: Jose L Valenzuela MD Status: REG ER ED Disposition - Plan for ED Patient: Chief Complaint: Complaint Instructions: ED UTI Cystitis Female Prescriptions: Hydrocodone Bitart/Apap 5-325 [[place] 5MG-325MG] 1 tab PO Q4H PRN PRN [...] your Primary Care Provider. Call [facility] ([phone]) or report to the closest Emergency Room. Call 911 if necessary. 09/07/18 1149 <Electronically signed by Shelley Sy DO> Date Shelley Sy DO Cosigner Signature (If Indicated): Date CC: Jose L Valenzuela MD EMERGENCY DEPARTMENT Observed: 09/07/2018 Status: F Source: [place] SUMMARY 11:47 AM [facility] REPOSITORY [facility] Medical Records Department [address] [place] [address] Emergency Department Summary 09/07/18 1144 MR#: [id number] Acct: [id number] Name: VEE HYATT Rep #: [id number] : 1940 77 From: Shelley Sy DO [...] for Bactrim as well as Pyridium and [place] for severe pain.] Disposition: [Discharged home in stable condition] Impression: [Urinary tract infection Leg edema] This note was generated with [employer] Proteome The[employer]ation software. It may contain incorrect words, spelling, [...] your Primary Care Provider. Call [facility] ([phone]) or report to the closest Emergency Room. Call 911 if necessary. 09/07/18 1147 <Electronically signed by Shelley Itzelgio ZIMMER> Date Shelley Sy DO Cosigner Signature (If Indicated): Date CC: Jose L Valenzuela MD URINALYSIS, COMPLETE Collected: 09/07/2018 Status: F Source: [place] 10:15 AM [facility] REPOSITORY Order Comment: Order Date: 09/07/18 COLOR [...] URINE SEEN Performed By: #### L400.0001 #### [facility] [address] [place], [address] Observed: 09/07/2018 Status: F Source: [place] CULTURE, URINE 10:15 AM [facility] REPOSITORY Order Date: 09/07/18 Has pt arrived? Y Urine Culture ORGANISM 1: Citrobacter koseri [place] Count >100,000 Citrobacter koseri: REACTION Amoxacillin/Clavulanic Acid $ 8 S Cefazolin $ <=4 S Cefepime $ <=1 S Ceftriaxone $ <=1 S Ciprofloxacin $ <=0.25 S Ertapenim $$$ <=0.5 S Gentamicin $ <=1 S Imipenem *NF <=0.25 S Levofloxacin $ <=0.12 S Nitrofurantoin $ 32 S Tobramycin $ <=1 S Trimethoprim/Sulfametho $ <=20 S (NF) indicates non-formulary drug at [facility]. Approval by Infectious Disease Specialist required before non-formulary drugs may be ordered and/or dispensed. Performed By: #### M100.0650 #### [facility] [address] [place], [address] CBC W/DIFF, AUTOMATED Collected: 09/07/2018 Status: F Source: [place] 9:33 AM [facility] REPOSITORY TYPE CODE TESTS RESULT OUT OF [...] Lymph 1.06 Performed By: #### L100.0100 #### [facility] [address] [place], [address] BASIC METABOLIC Collected: 09/07/2018 Status: F Source: [place] PROFILE ([facility]) 9:33 AM [facility] REPOSITORY TYPE CODE TESTS RESULT OUT OF [...] GAP 9 Performed By: #### L500.2500 #### [facility] [address] [place], [place], [address] BASIC METABOLIC Collected: 05/01/2018 Status: F Source: [place] PROFILE (BMP) 2:07 PM [facility] REPOSITORY TYPE CODE TESTS RESULT OUT OF [...] GAP 5 Performed By: #### L500.2500 #### [facility] [address] [place], [address] BASIC METABOLIC Collected: 01/24/2018 Status: F Source: [place] PROFILE (BMP) 3:50 PM [facility] REPOSITORY TYPE CODE TESTS RESULT OUT OF [...] GAP 5 Performed By: #### L500.2500 #### [facility] [address] [place] [address]. 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 50 #2 45 #3 40 [...] Parrish MD SIGNATURE: Kevin Parrish MD PAGER: [phone] DATE of SERVICE: 01/01/2018 TIME of SERVICE: 2:14 PM CNOV Observed: 01/01/2018 Status: COMPLETED Source: [place] 1:20 PM [facility] REPOSITORY Office Visit (THORMN) VEE HYATT ([id number]) 1940 F Date Time Provider Department 01/01/18 1:20 PM CASSANDRA JIMENEZ During your visit today, we recorded the following information about you: Temperature Pulse Blood pressure Weight 99 degrees 103/minute 150/77 77.7 kg Height 1.626 m Kevin Parrish MD 01/01/2018 4:55 PM Signed [facility] OUTPATIENT CONSULT NOTE Vee Hyatt [id number] Requesting Provider: Krystal Bar Thoracic Physician: Cassandra [...] arrangement: Lives with family/friend 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 50 #2 45 #3 40 [...] Parrish MD SIGNATURE: Kevin Parrish MD PAGER: [phone] DATE of SERVICE: 01/01/2018 TIME of SERVICE: 2:14 PM Referring Provider: JOSE L VALENZUELA [[id number]] Allergies As of Date: 01/01/2018 (No Known Allergies) Date Reviewed: 01/01/2018 Reviewed by: Estefania Acevedo - Fully Assessed Primary Visit Diagnosis:Diaphragmatic hernia without obstruction and without gangrene [K44.9] Order(s):LUNG DIFFUSION CAPACITY (DLCO) [1962814] Order #: [id number] FUTURE SIX MINUTE WALK [8355923] Order #: [id number] FUTURE SPIROMETRY WITH DILATOR IF OBSTRUCTED [2289363] Order #: [id number] FUTURE Prescriptions as of 01/01/2018 Sig: ALEVE [...] BASIC METABOLIC Collected: 12/31/2017 Status: F Source: [place] PROFILE (BMP) 11:04 AM [facility] REPOSITORY TYPE CODE TESTS RESULT OUT OF [...] GAP 4 Performed By: #### L500.2500 #### [facility] [address] [place], [address] HOME HEALTH PROGRESS Observed: 11/13/2017 Status: F Source: [place] NOTE 6:03 PM [facility] REPOSITORY [facility] Medical Records Department [address] [place] [address] Home Health Progress Note [id number] Encounter Encounter Date: 11/13/17 0857 MR#: [id number] Acct: [id number] Name: VEE HYATT Rep #: [id number] : 1940 77 From: Perez Moseley MD PCP: Jose L Valenzuela MD Status: ADM IN Location: [address] ADDENDUM by Perez Moseley MD on 11/13/17 at 1803 Start of care to begin on Sunday. 11/13/17 1803 <Electronically signed by Perez Moseley MD> Date [...] DISCHARGE SUMMARY Observed: 11/13/2017 Status: F Source: [place] 8:57 AM [facility] REPOSITORY [facility] Medical Records Department [address] [place] [address] Discharge Summary 11/13/17 0851 MR#: [id number] Acct: [id number] Name: VEE HYATT Rep #: [id number] : 1940 77 From: Perez Moseley MD PCP: Jose L Valenzuela MD Status: ADM IN Location: [place] [address] Discharge Date and Diagnosis Date of Admission: [...] fixation (Chronic) left femur 06/22, Dr Spears, [facility] Tinea unguium (Chronic) Dyskinesia, tardive (Chronic) [...] Fan Benavidez MD at 11:17 EST Tel [phone], Service support , Operations: None Procedures: None [...] Please Follow Up With: Dr. Bar When: [phone] Disposition: Home with Home Health Minutes spent on discharge:: 35 Patient Condition:: Stable Meaningful Use Info Meaningful Use Diagnoses (Choose all that apply): None applicable 11/13/17 0857 <Electronically signed by Perez Moseley MD> Date Perez Moseley MD Cosigner Signature (if applicable): Date CC: Jose L Valenzuela MD; Perez Moseley MD Signed DISCHARGE INSTRUCTION Observed: 11/13/2017 Status: F Source: [place] 8:51 AM [facility] REPOSITORY [facility] Medical Records Department [address] [place] [address] Instructions for Home/Discharge Instructions 11/13/17 0850 MR#: [id number] Acct: [id number] Name: VEE HYATT Rep #: [id number] : 1940 77 From: Perez Moseley MD [...] Please Follow Up With: Dr. Bar When: [phone] Proposed Discharge Date: 11/17/17 11/13/17 0851 <Electronically signed by Perez Moseley MD> Date Perez Moseley MD CC: Jose L Valenzuela MD BASIC METABOLIC Collected: 11/11/2017 Status: F Source: [place] PROFILE (BMP) 6:08 AM [facility] REPOSITORY TYPE CODE TESTS RESULT OUT OF [...] GAP 5 Performed By: #### L500.2500 #### [facility] [place], [address] CBC W/DIFF, AUTOMATED Collected: 11/11/2017 Status: F Source: [place] 6:08 AM [facility] REPOSITORY TYPE CODE TESTS RESULT OUT OF [...] Lymph 1.32 Performed By: #### L100.0100 #### [facility] [address] [place], [address] BEDSIDE GLUCOSE Collected: 11/07/2017 Status: F Source: [place] 6:26 AM [facility] REPOSITORY TYPE CODE TESTS RESULT OUT OF REFERENCE UNITS RANGE LAB L501.080 70-110 mg/dL High BEDSIDE GLU 113 Result Comment: MANAGEMENT OF PATIENT CARE PER NURSING PROTOCOL Performed By: #### L501.080 #### [facility] Point of Care [address] [place] [address] 12 LEAD ELECTROCARDIOGRAM Observed: 11/06/2017 Status: F Source: [place] 1:01 PM [facility] REPOSITORY [facility] Cardiovascular Services [address] [place] [address] 12 Lead EKG 11/04/17 0024 MR#: [id number] Acct: [id number] Name: VEE HYATT Rep #: [id number] : 1940 77 From: Orville Dumont MD [...] ECG Confirmed by ORVILLE DUMONT MD ([id number]), editor in chief KELLEN SUAREZ ([id number]) on 11/06/2017 1:00:56 PM Referred By: BIPIN Confirmed By:ORVILLE DUMONT MD 11/06/17 1301 Date Orville Dumont MD CC: Jose L Valenzuela MD; Dilip Okeefe MD Signed BEDSIDE GLUCOSE Collected: 11/06/2017 Status: F Source: [place] 6:35 AM [facility] REPOSITORY TYPE CODE TESTS RESULT OUT OF RANGE REFERENCE UNITS LAB L501.080 70-110 mg/dL Normal BEDSIDE GLU 103 Result Comment: MANAGEMENT OF PATIENT CARE PER NURSING PROTOCOL Performed By: #### L501.080 #### [facility] Point of Care [address] [place] [address] KIDNEY AND BLADDER Observed: 11/05/2017 Status: F Source: [place] 9:26 AM [facility] REPOSITORY [facility] Imaging Services [address] [place] [address] Kidney and Bladder MR#: [id number] Acct: [id number] Name: VEE HYATT Rep #: [id number] : 1940 F 77 From: Fan Benavidez MD PCP: Jose L Valenzuela MD Status: ADM IN Study: Kidney and Bladder Date of Exam: 11/05/17 Exam# [id number] Ordering Dr: Perez Moseley MD STUDY: RENAL [...] Fan Benavidez MD at 11:17 EST Tel [phone], Service support , CC: Jose L Valenzuela MD; Perez Moseley MD Card Filer: Signed HISTORY AND PHYSICAL Observed: 11/05/2017 Status: F Source: [place] EXAM 8:42 AM [facility] REPOSITORY [facility] Medical Records Department [address] [place] [address] History and Physical 11/03/172018 MR#: [id number] Acct: [id number] Name: VEE HYATT Rep #: [id number] : 1940 77 From: Perez Moseley MD PCP: Jose L Valenzuela MD Status: ADM IN Location: [place] [address] Problem List (1) Diaphragmatic hernia Status: Chronic [...] past medical history presented to [facility] Emergency Department 10/26/2017 with abdominal pain. [...] diaphragmatic hernia with strangulation and gangrene. At [facility], patient thought too high risk for surgery. Patient was treated supportively. 11/03/2017 Admit to TCU for rehabilitation, strengthening, prior to discharge home alone. 11/04/2017 Resident became increasingly short of breath, respiratory therapy recommended BIPAP. Resident was sent to [facility] Emergency Department for evaluation, no acute findings noted. I had phone conversation with Dr. Okeefe, resident's son states Dr. Bar at [facility] able and willing to perform diaphragmatic hernia repair, but resident needs to get stronger. 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 [address] EMERGENCY DEPARTMENT Observed: 11/05/2017 Status: F Source: [place] SUMMARY 1:11 AM [facility] REPOSITORY [facility] Medical Records Department [address] [place] [address] Emergency Department Summary 11/04/17 0254 MR#: [id number] Acct: [id number] Name: VEE HYATT Rep #: [id number] : 1940 77 From: Dilip Okeefe MD PCP: Jose L Valenzuela MD Status: DEP ER - ER Visit Summary Date of Service: 11/04/17 Chief Complaint: Shortness of breath History of Present Illness: The patient is a [address] Dumont and Dr. Jose L Ash. She reports that she was sent to [facility] October 26 to have repair of a diaphragmatic hernia. States that she was seen by general surgeons there and they felt that this was too high risk. She was sent to the TCU today. Patient reports that she has had shortness of breath is been present for the entire time. In fact, she reports that she called 911 from the [facility] because she was so short of [...] Son who is the medical power of biometrician reports that he wants patient to have the surgery at [facility]. I have offered to transfer to [facility] today. He would like her to go [...] diaphragmatic hernia. This note was generated with DeepField dictation software. It may contain incorrect words, [...] problems, contact your Primary Care Provider. Call [facility] ([phone]) or report to the closest Emergency Room. Call 911 if necessary. 11/05/17 0111 <Electronically signed by Dilip Okeefe MD> Date Dilip Okeefe MD Cosigner Signature (If Indicated): Date CC: Jose L Vaelnzuela MD -KIDNEY AND BLADDER Observed: 11/05/2017 Status: F Source: [facility] 12:00 AM [facility] REPOSITORY Images were obtained outside of [facility] [id number] CHEST PA AND LATERAL Observed: 11/04/2017 Status: F Source: [place] 6:59 PM [facility] REPOSITORY [facility] Imaging Services [address] [place] [address] Chest PA and Lateral MR#: [id number] Acct: [id number] Name: VEE HYATT Rep #: [id number] : 1940 F 77 From: Kellen Kelly MD PCP: Jose L Valenzuela MD Status: ADM IN Study: Chest PA and Lateral Date of Exam: 11/04/17 Exam# [id number] Ordering Dr: Perez Moseley MD XR Chest [...] Jose L Valenzuela MD; Perez Moseley MD Card Filer: Signed CBC W/DIFF, AUTOMATED Collected: 11/04/2017 Status: F Source: [place] 5:30 AM [facility] REPOSITORY TYPE CODE TESTS RESULT OUT OF [...] Lymph 1.44 Performed By: #### L100.0100 #### [facility] [place], [address] CBC W/DIFF, AUTOMATED Collected: 11/04/2017 Status: F Source: [place] 1:16 AM [facility] REPOSITORY TYPE CODE TESTS RESULT OUT OF [...] Lymph 2.08 Performed By: #### L100.0100 #### [facility] [place], [address] BASIC METABOLIC Collected: 11/04/2017 Status: F Source: [place] PROFILE (BMP) 1:16 AM [facility] REPOSITORY Order Comment: 'TROP' Serial specimen #1, [...] GAP Performed By: #### L500.2500, L501.4010 #### [facility] [address] [facility] [place], [place], [address] TROPONIN-I Collected: 11/04/2017 Status: F Source: [place] 1:16 AM [facility] REPOSITORY Order Comment: 'TROP' Serial specimen #1, #2, #3, or #4: 1 TYPE CODE TESTS RESULT OUT OF RANGE REFERENCE UNITS LAB L501.4010 <0.06 ng/mL Normal < 0.02 TROPONIN-I Result Comment: TROPONIN-I EXPECTED VALUES <0.05 NEGATIVE 0.06 - 0.59 AT RISK OF RI > OR = 0.60 SUGGEST RI Performed By: #### L500.2500, L501.4010 #### [facility] [address] [place], [address] CHEST 1 VIEW Observed: 11/04/2017 Status: F Source: [place] (PORTABLE) 12:11 AM [facility] REPOSITORY [facility] Imaging Services [address] [place] [address] Chest 1 View (Portable) MR#: [id number] Acct: [id number] Name: VEE HYATT Rep #: [id number] : 1940 F 77 From: Francisco Javier Alexander PCP: Jose L Valenzuela MD Status: REG ER Study: Chest 1 View (Portable) Date of Exam: 11/04/17 Exam# [id number] Ordering Dr: Dilip Okeefe MD STUDY: X-RAY [...] Jose L Valenzuela MD; Dilip Okeefe MD Card Filer: Signed [facility] Observed: 11/04/2017 Status: F Source: [facility] 12:00 AM [facility] REPOSITORY Images were obtained outside of [facility] [id number] GLUCOSE METER Collected: 11/03/2017 Status: F Source: [facility] 5:04 PM [facility] REPOSITORY TYPE CODE TESTS RESULT OUT OF REFERENCE UNITS RANGE LAB GLUBL(LOINC 70-99 mg/dL ) High Glucose Meter 118 Result Comment: RN NOTIFIED Performed By: #### GLMET #### [facility] [address] [place] [address] CASE MANAGEM Observed: 11/03/2017 Status: COMPLETED Source: [place] 2:58 PM [facility] REPOSITORY HNO ID: [id number] Author: Chiquita (Specialist) Glo Service: (none) Author Type: (none) Type: Care Mgt Progress Note Filed: 11/03/2017 3:00 PM Note Text: Patient will be picked up by [facility] at 5:30pm going to [place] [facility] I notified [facility] at [phone]. CASE MANAGEM Observed: 11/03/2017 Status: COMPLETED Source: [place] 2:45 PM CLINIC OTHER CAMPUS REPOSITORY HNO ID: [id number] Author: Carlene (Rn) PRACHI De La Vega Service: Care Management Author Type: Registered Nurse Type: Care Mgt Progress Note Filed: 11/03/2017 2:48 PM Note Text: CARE MANAGEMENT DISCHARGE NOTE SERVICE DATE: 11/03/2017 SERVICE TIME: 2:45 PM LOS: 8 days Admission Date: 10/26/2017 DISCHARGE ARRANGEMENT (list agency and phone number) senior care facility Provider: [facility] HANDOFF COMMUNICATION: RN-to-RN Report TRANSPORTATION ARRANGEMENTS: Ambulance: Transport Agency and Phone: [facility] ambulance ( [facility] ) [phone] / [phone]. Discussion of financial coverage occurred with [employer]. Patient will discharge to [facility] at 1730 via cot. [employer], aware of possible OOP costs. He was notified of discharge time via our Psychiatrist. ADDITIONAL CONTACT RESOURCES: Please call report to [phone]. Needs Prior to Discharge: Ready for Discharge Await transport at 1730. SIGNATURE: Carlene De La Vega RN PATIENT NAME: Vee Hyatt DATE: November 03, 2017 TIME: 2:45 PM PAGER/CONTACT #: [phone] CNDS Observed: 11/03/2017 Status: COMPLETED Source: [place] 2:27 PM CLINIC OTHER CAMPUS REPOSITORY HNO ID: [id number] Author: Rick Villatoro Service: Trauma Author Type: [...] No pending results Discharge Disposition Discharge Disposition: Residential Facility - Less than 30 Days Activity When You Leave the Hospital May bathe and shower No walking restrictions Resume pre-hospital activity Diet Instructions Resume your pre-hospital diet For Pain When You Leave the Hospital If you become constipated, you may use any ptjp-ttf-ytllxeq treatment such as Milk of Magnesia, Sennakot, Prune Juice, Suppositories, etc. in addition to the stool softener/fiber supplement No alcohol or driving while on pain medication Use ibuprofen (Motrin, Advil) as recommended on the bottle Use the dispensed medication (see prescription) You should use an mtor-prd-frjwvqt stool softener (Docusate sodium) and/or a fiber supplement (Metamucil, Fiber Con) every day while taking prescribed pain medication Call Your Doctor If You have persistent nausea/vomiting over 24 hours You have swollen glands or cold and clammy skin Follow Up Appointments Follow-Up Appointment With: PCP When: In 2 weeks FOLLOW-UP APPOINTMENTS ALREADY SCHEDULED WITH A [facility] PROVIDER: No future appointments. DISCHARGE MEDICATION: [...] this patient. SIGNATURE: SHAWN Velez PAGER/CONTACT #: [phone] DATE: November 03, 2017 TIME: 2:28 PM GLUCOSE METER Collected: 11/03/2017 Status: F Source: [facility] 11:39 AM HEALTH SYSTEM REPOSITORY TYPE CODE TESTS RESULT OUT OF REFERENCE UNITS RANGE LAB GLUBL(LOINC 70-99 mg/dL ) High Glucose Meter 124 Result Comment: RN NOTIFIED Performed By: #### GLMET #### [facility] [address] [place] [address] CHEST 1 VIEW Observed: 11/03/2017 Status: F Source: [facility] 11:28 AM HEALTH SYSTEM REPOSITORY Performed at [facility] APPROVED BY: Ulises Fajardo MD EXAM TITLE: CHEST 1 VIEW DATE: 11/03/2017 11:23 COMPARISON: 11/01/2017 CLINICAL INDICATION/HISTORY: Respiratory distress TECHNIQUE: AP upright portable chest FINDINGS: No significant interval change. Bilateral pleural effusion again noted, mdorh-kp-iywcjenb on the left and moderate on the right with presumed adjacent compressive atelectasis. Cardiac size is within normal limits and unchanged. There is decreased bone density. IMPRESSION: No change. CASE MANAGEM Observed: 11/03/2017 Status: COMPLETED Source: [place] 8:49 AM CLINIC OTHER CAMPUS REPOSITORY HNO ID: [id number] Author: Carlene (Rn) PRACHI De La Vega [...] to Discharge: Ready for Discharge Epic reviewed. [facility] will have bed available today (11/03) if patient is medically stable for discharge. Paged [phone] to request discharge orders. Please call [phone] if intending to discharge this patient. Will continue to follow clinical progress for discharge needs. SIGNATURE: Carlene De La Vega RN PATIENT NAME: Vee Hyatt DATE: November 03, 2017 TIME: 8:50 AM PAGER/CONTACT #: [phone] GLUCOSE METER Collected: 11/03/2017 Status: F Source: [facility] 7:02 AM HEALTH SYSTEM REPOSITORY TYPE CODE TESTS RESULT OUT OF REFERENCE UNITS RANGE LAB GLUBL(LOINC 70-99 mg/dL ) High Glucose Meter 108 Result Comment: RN NOTIFIED Performed By: #### GLMET #### [facility] [address] [place] [id number] PROGRESS Observed: 11/03/2017 Status: COMPLETED Source: [place] 6:17 AM CLINIC OTHER CAMPUS REPOSITORY HNO ID: [id number] Author: Diane De Los Santos Service: General [...] kg/m2 O2 Therapy: Nasal Cannula IANDO: Date 11/02/17 07 - 11/03/17 0659 11/03/17 07 - 11/04/17 0659 Shift 8346-3496 9379-5151 9817-2070 24 Hour Total 4064-5511 5835-0983 6073-8318 24 Hour Total I N T A [...] diet. KVO IVF PT/OT Dc today to [facility]. Plan to follow up with Dr. Bar, who previously worked up this hernia. I left a message for Dr. Bar to discuss the patient's hospital course. ?? Diane De Los Santos MD November 03, 2017 ========= GLUCOSE METER Collected: 11/02/2017 Status: F Source: [facility] 9:11 PM HEALTH SYSTEM REPOSITORY TYPE CODE TESTS RESULT OUT OF REFERENCE UNITS RANGE LAB GLUBL(LOINC 70-99 mg/dL ) High Glucose Meter 130 Result Comment: RN NOTIFIED Performed By: #### GLMET #### [facility] [address] [place] [address] NURSING PROG Observed: 11/02/2017 Status: COMPLETED Source: [place] 8:47 PM CLINIC OTHER CAMPUS REPOSITORY HNO ID: [id number] Author: Natalie (Rn) PRACHI Pope Service: Nursing Author Type: Registered Nurse Type: Nursing Progress Note Filed: 11/02/2017 9:00 PM Note Text: Nursing Progress Note Patient Name: Vee Hyatt Patient Location: [place] [address] [address] Event(s) / Intervention Note: The patient complained [...] GLUCOSE METER Collected: 11/02/2017 Status: F Source: [facility] 4:51 PM HEALTH SYSTEM REPOSITORY TYPE CODE TESTS RESULT OUT OF REFERENCE UNITS RANGE LAB GLUBL(LOINC 70-99 mg/dL ) High Glucose Meter 124 Result Comment: RN NOTIFIED Performed By: #### GLMET #### [place] [address] NUTRITION Observed: 11/02/2017 Status: COMPLETED Source: [place] 3:58 PM CLINIC OTHER CAMPUS REPOSITORY HNO ID: [id number] Author: Natividad Rod) MILTON Rivera Service: Nutrition Therapy Author Type: Registered Dietitian [...] SIGNATURE: Natividad Rivera RD PATIENT NAME: Vee Hyatt DATE: November 02, 2017 TIME: 3:59 PM PAGER: [phone] CASE MANAGEM Observed: 11/02/2017 Status: COMPLETED Source: [place] 2:18 PM CLINIC OTHER CAMPUS REPOSITORY HNO ID: [id number] Author: Roro LiraRn) PRACHI Schwartz Service: Care Management Author Type: Registered Nurse Type: Care Mgt Progress Note Filed: 11/02/2017 2:22 PM Note Text: CARE MANAGEMENT PROGRESS NOTE SERVICE DATE: 11/02/2017 SERVICE TIME: 1418 LOS: 7 days Needs Prior to Discharge: Bed Availability [facility] Per [facility] Gonsalves, Admissions--will have bed available for patient on Sunday (11/03). Will need transport via cot per family request--son notified of potential for copay/srr-wr-whrbrs costs. Await discharge orders when medically stable. SIGNATURE: Roro Schwartz RN PATIENT NAME: Vee Hyatt DATE: November 02, 2017 TIME: 2:18 PM PAGER/CONTACT #: [phone] GLUCOSE METER Collected: 11/02/2017 Status: F Source: [facility] 11:46 AM HEALTH SYSTEM REPOSITORY TYPE CODE TESTS RESULT OUT OF REFERENCE UNITS RANGE LAB GLUBL(LOINC 70-99 mg/dL ) High Glucose Meter 122 Result Comment: RN NOTIFIED Performed By: #### GLMET #### [place] [address] THERAPY NT Observed: 11/02/2017 Status: COMPLETED Source: [place] 10:04 AM CLINIC OTHER CAMPUS REPOSITORY HNO ID: [id number] Author: Faye Penalozar/LMckenna Covarrubias OT Service: Occupational Therapy Author Type: Occupational Therapist Type: Therapy (PT/OT/Speech/Resp) Filed: 11/02/2017 10:14 AM Note Text: Occupational Therapy Evaluation SERVICE DATE: 11/02/2017 SERVICE TIME: 914 to 953 ROOM: [place] [address] Recommended Discharge Disposition: Subacute/SNF Justification For Post [...] on feet Interventions Provided: Evaluation;Self Shelter Management (23351) $ Evaluation-Moderate (79600) Billed Units: 1 unit Self Shelter Management (58283) Treatment Minutes: 24 2 units Skilled Intervention(s) [...] who presents as a direct admit from [facility] for right-sided diaphragmatic hernia. Pt states [...] agreeable to session. C/o pain in abdomen 5-610 after activity. Home Environment Patient Lives With: Self/Alone Assistance Available: termite exterminator (Son visits daily per patient) Entry To [...] November 02, 2017 TIME: 10:04 AM PAGER: [phone] PROGRESS Observed: 11/02/2017 Status: COMPLETED Source: [place] 9:11 AM CLINIC OTHER CAMPUS REPOSITORY HNO ID: [id number] Author: Diane De Los Santos Service: General [...] Therapy: Nasal Cannula IANDO: Date 11/01/17699 - 11/02/17 0659 11/02/17699 - 11/03/17 0659 Shift 7943-5027 2566-4432 4462-3877 24 Hour Total 2282-7224 4634-6094 2783-4848 24 Hour Total I N T A K E PO 240 640 880 PO 240 640 880 IV 550 550 D5 NS 500 500 Potassium IVPB 50 50 Shift Total 648 542 6109 O U T P U T Urine 750 722 682 4455 Void (ml) 750 274 488 1919 Urine Incontinence/Not Saved 1 x 1 x 2 x # of BMs Number of BMs 1 x 1 x 2 x Shift Total 750 952 015 0101 Weight (kg) 77.1 77.1 77.1 77.1 77.1 [...] MD PATIENT NAME: Vee Hyatt DATE: November 02, 2017 TIME: 9:11 AM Pager: [phone] ========= SURGERY STAFF: I have personally seen [...] CASE MANAGEM Observed: 11/02/2017 Status: COMPLETED Source: [place] 8:33 AM [facility] OTHER CAMPUS REPOSITORY HNO ID: [id number] Author: Roro Schwartz RN Service: Care Management Author Type: Registered Nurse Type: Care Mgt Progress Note Filed: 11/02/2017 8:34 AM Note Text: CARE MANAGEMENT PROGRESS NOTE SERVICE DATE: 11/02/2017 SERVICE TIME: 832 LOS: 7 days Needs Prior to Discharge: Insurance Authorization Awaiting precert for [facility]. SIGNATURE: Roro Schwartz RN PATIENT NAME: Vee Hyatt DATE: November 02, 2017 TIME: 8:33 AM PAGER/CONTACT #: [phone] GLUCOSE METER Collected: 11/02/2017 Status: F Source: [facility] 6:47 AM HEALTH SYSTEM REPOSITORY TYPE CODE TESTS RESULT OUT OF REFERENCE UNITS RANGE LAB GLUBL(LOINC 70-99 mg/dL ) High Glucose Meter 109 Result Comment: RN NOTIFIED Performed By: #### GLMET #### [facility] [address] [place] [id number] NURSING PROG Observed: 11/02/2017 Status: COMPLETED Source: [place] 1:45 AM CLINIC OTHER CAMPUS REPOSITORY HNO ID: [id number] Author: Natalie LiraRn) PRACHI Pope Service: Nursing Author Type: Registered Nurse Type: Nursing Progress Note Filed: 11/02/2017 2:48 AM Note Text: Nursing Progress Note Patient Name: Vee Hyatt Patient Location: [place] [address]/[id number]-* Event(s) / Intervention Note: The patient complained [...] GLUCOSE METER Collected: 11/01/2017 Status: F Source: [facility] 8:45 PM HEALTH SYSTEM REPOSITORY TYPE CODE TESTS RESULT OUT OF REFERENCE UNITS RANGE LAB GLUBL(LOINC 70-99 mg/dL ) High Glucose Meter 117 Result Comment: RN NOTIFIED Performed By: #### GLMET #### [facility] [address] [place] [id number] GLUCOSE METER Collected: 11/01/2017 Status: F Source: [facility] 5:10 PM HEALTH SYSTEM REPOSITORY TYPE CODE TESTS RESULT OUT OF REFERENCE UNITS RANGE LAB GLUBL(LOINC 70-99 mg/dL ) High Glucose Meter 149 Result Comment: RN NOTIFIED Performed By: #### GLMET #### [place] [address] POTASSIUM BLOOD Collected: 11/01/2017 Status: F Source: [facility] 2:20 PM HEALTH SYSTEM REPOSITORY TYPE CODE TESTS RESULT OUT OF REFERENCE UNITS RANGE LAB K(LOINC) 3.5-5.1 mEq/L Low Potassium Blood 3.4 Performed By: #### K #### [place] [address] CASE MANAGEM Observed: 11/01/2017 Status: COMPLETED Source: [place] 12:03 PM [facility] OTHER [facility] REPOSITORY HNO ID: [id number] Author: oRro LiraRn) PRACHI Schwartz Service: Care Management Author Type: Registered Nurse Type: Care Mgt Progress Note Filed: 11/01/2017 12:05 PM Note Text: CARE MANAGEMENT PROGRESS NOTE SERVICE DATE: 11/01/2017 SERVICE TIME: 1203 LOS: 6 days Needs Prior to Discharge: Insurance Authorization Spoke with [facility] Admissions--patient accepted and precert started. Await precert. SIGNATURE: Roro Schwartz RN PATIENT NAME: Vee Hyatt DATE: November 01, 2017 TIME: 12:03 PM PAGER/CONTACT #: [phone] GLUCOSE METER Collected: 11/01/2017 Status: F Source: [facility] 11:09 AM HEALTH SYSTEM REPOSITORY TYPE CODE TESTS RESULT OUT OF REFERENCE UNITS RANGE LAB GLUBL(LOINC 70-99 mg/dL ) High Glucose Meter 112 Result Comment: RN NOTIFIED Performed By: #### GLMET #### [place] [address] CASE MANAGEM Observed: 11/01/2017 Status: COMPLETED Source: [place] 8:30 AM [facility] REPOSITORY HNO ID: [id number] Author: Roro LiraRn) PRACHI Schwartz Service: Care Management Author Type: Registered Nurse Type: Care Mgt Progress Note Filed: 11/01/2017 8:31 AM Note Text: CARE MANAGEMENT PROGRESS NOTE SERVICE DATE: 11/01/2017 SERVICE TIME: 0830 LOS: 6 days Needs Prior to Discharge: Accepting Facility;Insurance Authorization Awaiting acceptance to [facility]. SIGNATURE: Roro Schwartz RN PATIENT NAME: Vee Pedersene DATE: November 01, 2017 TIME: 8:30 AM PAGER/CONTACT #: [phone] PROGRESS Observed: 11/01/2017 Status: COMPLETED Source: [place] 8:14 AM CLINIC OTHER CAMPUS REPOSITORY HNO ID: [id number] Author: Diane De Los Santos Service: General [...] kg/m2 O2 Therapy: Nasal Cannula IANDO: Date 10/31/17 0700 - 11/01/17 0659 11/01/17 0700 - 11/02/17 0659 Shift 2292-8274 0926-8972 0837-5132 24 Hour Total 1289-5957 7586-2179 4203-5110 24 Hour Total I N T A K E PO 300 300 PO 300 300 IV 914 914 D5 NS 914 914 Shift Total 353 844 1179 O U T P U T Urine 300 821 760 7567 Void (ml) 300 715 696 0715 Urine Incontinence/Not Saved 1 x 1 x # of BMs Number of BMs 2 x 2 x 1 x 5 x Shift Total 300 107 855 8833 Weight (kg) 77.1 77.1 77.1 77.1 77.1 [...] November 01, 2017 TIME: 8:14 AM Pager: [phone] ========= SURGERY STAFF: I have personally seen [...] 1 VIEW Observed: 11/01/2017 Status: F Source: [facility] 6:40 AM HEALTH SYSTEM REPOSITORY Performed at [...] GLUCOSE METER Collected: 11/01/2017 Status: F Source: [facility] 6:19 AM HEALTH SYSTEM REPOSITORY TYPE CODE TESTS RESULT OUT OF REFERENCE UNITS RANGE LAB GLUBL(LOINC 70-99 mg/dL ) High Glucose Meter 113 Result Comment: RN NOTIFIED Performed By: #### GLMET #### [facility] [address] [place] [address] NURSING PROG Observed: 11/01/2017 Status: COMPLETED Source: [place] 5:43 AM [facility] REPOSITORY HNO ID: [id number] Author: Bridgette LiraRn) PRACHI Green Service: Nursing Author Type: Registered Nurse Type: Nursing Progress Note Filed: 11/01/2017 5:43 AM Note Text: Nursing Progress Note Patient Name: Vee Hyatt Patient Location: [place] [address] [address] phos 1.[address] Antunez notified. No new orders received. Will continue to monitor This note was completed by: Bridgette Green RN NURSING PROG Observed: 11/01/2017 Status: COMPLETED Source: [place] 3:57 AM [facility] REPOSITORY HNO ID: [id number] Author: Bridgette LiraRn) PRACHI Green Service: Nursing Author Type: Registered Nurse Type: Nursing Progress Note Filed: 11/01/2017 4:31 AM Note Text: bp 175/74. All other vital signs stable. Pt c/o pain / and 5mg oxy IR given. Dr. Antunez paged. No reply yet. RN will cont. To monitor At 0424 Dr. Antunez paged again [phone] New orders received for clonidine 0.1mg q8. Will continue to monitor PHOSPHORUS BLOOD Collected: 11/01/2017 Status: F Source: [facility] 3:48 AM HEALTH SYSTEM REPOSITORY TYPE CODE TESTS RESULT OUT OF REFERENCE UNITS RANGE LAB PHOS(LOINC 2.5-4.9 mg/dL ) Low alert Phosphorus Blood 1.9 Performed By: #### PHOS #### [place] [address] BASIC PANEL Collected: 11/01/2017 Status: F Source: [facility] 3:48 AM HEALTH SYSTEM REPOSITORY TYPE CODE [...] Gap 9 Performed By: #### P8 #### [place] [address] MDRD GFR Collected: 11/01/2017 Status: F Source: [facility] 3:48 AM HEALTH SYSTEM REPOSITORY TYPE CODE TESTS RESULT OUT OF RANGE REFERENCE UNITS LAB GFRFN(LOINC >60mL/min/1.73m ) 2 eGFR >60 Result Comment: If the patient is , multiply the result by 1.210. Performed By: #### GFR #### [place] [address] MAGNESIUM BLOOD Collected: 11/01/2017 Status: F Source: [facility] 3:48 AM HEALTH SYSTEM REPOSITORY TYPE CODE TESTS RESULT OUT OF REFERENCE UNITS RANGE LAB MAG(LOINC) 1.6-2.6 mg/dL Magnesium Blood 1.8 Performed By: #### MAG #### [place] [address] HEMOGRAM/DIFF Collected: 11/01/2017 Status: F Source: [facility] 3:48 AM HEALTH SYSTEM REPOSITORY TYPE CODE [...] Lymph 1.43 LAB MONON(LOINC) 0.27-0.70 thou/cmm Abs. [place] 0.40 LAB EOSN(LOINC) 0.00-0.31 thou/cmm Abs. Eosin 0.07 LAB BASON(LOINC) 0.01-0.08 thou/cmm Abs. Baso 0.05 Performed By: #### CBCD1 #### [facility] [address] [place] [address] NURSING PROG Observed: 10/31/2017 Status: COMPLETED Source: [place] 9:58 PM CLINIC OTHER CAMPUS REPOSITORY HNO ID: [id number] Author: Bridgette LiraRn) PRACHI Green Service: Nursing Author Type: Registered [...] GLUCOSE METER Collected: 10/31/2017 Status: F Source: [facility] 9:43 PM HEALTH SYSTEM REPOSITORY TYPE CODE TESTS RESULT OUT OF REFERENCE UNITS RANGE LAB GLUBL(LOINC 70-99 mg/dL ) High Glucose Meter 110 Result Comment: RN NOTIFIED Performed By: #### GLMET #### [place] [address] GLUCOSE METER Collected: 10/31/2017 Status: F Source: [facility] 5:06 PM HEALTH SYSTEM REPOSITORY TYPE CODE TESTS RESULT OUT OF REFERENCE UNITS RANGE LAB GLUBL(LOINC 70-99 mg/dL ) High Glucose Meter 108 Result Comment: RN NOTIFIED Performed By: #### GLMET #### [place] [address] CASE MANAGEM Observed: 10/31/2017 Status: COMPLETED Source: [place] 3:08 PM [facility] REPOSITORY HNO ID: [id number] Author: Toribio LiraRn) PRACHI Tamayo Service: Care Management Author Type: Registered Nurse Type: Care Mgt Progress Note Filed: 10/31/2017 3:14 PM Note Text: CARE MANAGEMENT PROGRESS NOTE SERVICE DATE: 10/31/2017 SERVICE TIME: 1508 LOS: 5 days Referral made to [facility] at pt and son request. Pt will need authorization prior to discharge. SIGNATURE: Toribio Tamayo RN PATIENT NAME: Vee Hyatt DATE: October 31, 2017 TIME: 3:08 PM PAGER/CONTACT #: [phone] CASE MANAGEM Observed: 10/31/2017 Status: COMPLETED Source: [place] 3:06 PM [facility] REPOSITORY HNO ID: [id number] Author: Mandy LiraRn) PRACHI Kidd Service: Care Management Author Type: Registered Nurse Type: Care Mgt Progress Note Filed: 10/31/2017 3:08 PM Note Text: CARE MANAGEMENT PROGRESS NOTE SERVICE DATE: 10/31/2017 SERVICE TIME: 3:07 PM LOS: 5 days Call to [employer] at [phone]. For discharge the plan is [facility] transitional care unit. Placed referral. SIGNATURE: Mandy Kidd RN PATIENT NAME: Vee Hyatt DATE: October 31, 2017 TIME: 3:06 PM PAGER/CONTACT #: [phone] THERAPY NT Observed: 10/31/2017 Status: COMPLETED Source: [place] 2:29 PM [facility] OTHER [facility]AMP[facility] REPOSITORY HNO ID: [id number] Author: Xiomy (Otr/L) Dean Service: Occupational Therapy Author Type: Occupational Therapist Type: Therapy (PT/OT/Speech/Resp) Filed: 10/31/2017 2:30 PM Note Text: OCCUPATIONAL THERAPY MISSED VISIT SERVICE DATE: 10/31/2017 SERVICE TIME: 1428 to 1428 ROOM: [place] [address] Attempted Evaluation. Patient not seen due to Declined. Patient declines therapy at this time due to fatigue after getting back from bedside commode, will continue to follow as able and appropriate. SIGNATURE: Xiomy Moran, OTR/L PATIENT NAME: Vee Hyatt DATE: October 31, 2017 TIME: 2:29 PM PAGER/CONTACT #: [phone] s GLUCOSE METER Collected: 10/31/2017 Status: F Source: [facility] 11:26 AM HEALTH SYSTEM REPOSITORY TYPE CODE TESTS RESULT OUT OF REFERENCE UNITS RANGE LAB GLUBL(LOINC 70-99 mg/dL ) High Glucose Meter 121 Result Comment: RN NOTIFIED Performed By: #### GLMET #### [facility] [address] [place], [place] [address] THERAPY NT Observed: 10/31/2017 Status: COMPLETED Source: [place] 10:56 AM [facility] OTHER [facility] REPOSITORY HNO ID: [id number] Author: Danielle (Pt) LEATHA Bojorquez Service: Physical Therapy Author Type: Physical Therapist Type: Therapy (PT/OT/Speech/Resp) Filed: 10/31/2017 4:27 PM Note Text: Physical Therapy Evaluation SERVICE DATE: 10/31/2017 SERVICE TIME: 1010 to 1045 ROOM: [place] [address] Present on Admission: - Diaphragmatic hernia Recommended [...] daily living (ADL) Interventions Provided: Evaluation;Therapeutic Activity (68746);Gait Training (48805) $ Evaluation-Moderate (87206) Billed Units: 1 unit Therapeutic Activity (55186) Treatment Minutes: 10 1 unit Skilled Intervention(s): [...] functional mobility needs and [facility]. Gait Training (91416) Treatment Minutes: 2 0 units Skilled Intervention(s): [...] Environment Patient Lives With: Self/Alone Assistance Available: termite exterminator (Son visits daily per patient) Entry To [...] 31, 2017 TIME: 10:56 AM PAGER/CONTACT #: [phone] I reviewed and addended with the documentation corresponding to this therapy visit. Evaluation and/or treatment directly supervised by licensed Physical Therapist. SIGNATURE: Danielle Bojorquez PT DATE: October 31, 2017 TIME: 4:27 PM CASE MANAGEM Observed: 10/31/2017 Status: COMPLETED Source: [place] 9:33 AM [facility]IN[facility] OTHER CAMPUS REPOSITORY HNO ID: [id number] Author: Roro LiraRn) PRACHI Schwartz Service: Care [...] 31, 2017 TIME: 9:33 AM PAGER/CONTACT #: [phone] MAGNESIUM BLOOD Collected: 10/31/2017 Status: F Source: [facility] 8:40 AM HEALTH SYSTEM REPOSITORY TYPE CODE TESTS RESULT OUT OF REFERENCE UNITS RANGE LAB MAG(LOINC) 1.6-2.6 mg/dL Magnesium Blood 1.8 Performed By: #### MAG #### [facility] [address] [place] [address] GLUCOSE METER Collected: 10/31/2017 Status: F Source: [facility] 6:35 AM HEALTH SYSTEM REPOSITORY TYPE CODE TESTS RESULT OUT OF REFERENCE UNITS RANGE LAB GLUBL(LOINC 70-99 mg/dL ) High Glucose Meter 118 Result Comment: RN NOTIFIED Performed By: #### GLMET #### [place] [address] PROGRESS Observed: 10/31/2017 Status: COMPLETED Source: [place] 6:14 AM [facility] OTHER CAMPUS REPOSITORY HNO ID: [id number] Author: Jere Bryson Service: General Surgery Author [...] Cannula IANDO: Date 10/30/17699 - 10/31/17 0659 10/31/17 07 - 11/01/17 0659 Shift 6109-0891 9666-9493 1324-4161 24 Hour Total 1184-4170 2101-5112 6311-1863 24 Hour Total I N T A K E PO 240 150 390 PO 240 150 390 IV 934 040 4827 D5 NS 057 936 5638 Shift Total 341 855 7064 1437 O U T P U T [...] October 31, 2017 TIME: 6:15 AM Pager: [phone] NURSING PROG Observed: 10/31/2017 Status: COMPLETED Source: [place] 5:09 AM [facility] OTHER CAMPUS REPOSITORY HNO ID: [id number] Author: Mary (Rn) PRACHI Morgan Service: (none) Author Type: Registered Nurse Type: Nursing Progress Note Filed: 10/31/2017 5:10 AM Note Text: If patient is to be prison would recommend PICC patient with right arm gross infiltrate and on left with extremely poor venous access staff nurse notified HEMOGRAM/DIFF Collected: 10/31/2017 Status: F Source: [facility] 5:05 AM HEALTH SYSTEM REPOSITORY TYPE CODE [...] 1.43 LAB MONON(LOIN 0.27-0.70 thou/cmm C) Abs. [place] 0.30 LAB EOSN(LOINC 0.00-0.31 thou/cmm ) Abs. Eosin 0.08 LAB BASON(LOIN 0.01-0.08 thou/cmm C) Abs. Baso 0.05 Performed By: #### CBCD1 #### [place] [address] PHOSPHORUS BLOOD Collected: 10/31/2017 Status: F Source: [place] [address]:[address] [place] [address] SYSTEM REPOSITORY TYPE CODE TESTS RESULT OUT OF REFERENCE UNITS RANGE LAB PHOS(LOINC 2.5-4.9 mg/dL ) Low alert Phosphorus Blood 1.7 Performed By: #### PHOS #### [place] [address] BASIC PANEL Collected: 10/31/2017 Status: F Source: [address] SYSTEM REPOSITORY TYPE CODE TESTS RESULT OUT [...] Low 5 Performed By: #### P8 #### [facility] [address] [place] [address] MDRD GFR Collected: 10/31/2017 Status: F Source: [facility] 5:05 AM HEALTH SYSTEM REPOSITORY TYPE CODE TESTS RESULT OUT OF RANGE REFERENCE UNITS LAB GFRFN(LOINC >60mL/min/1.73m ) 2 eGFR >60 Result Comment: If the patient is , multiply the result by 1.210. Performed By: #### GFR #### [facility] [address] [address] GLUCOSE METER Collected: 10/30/2017 Status: F Source: [facility] 9:16 PM HEALTH SYSTEM REPOSITORY TYPE CODE TESTS RESULT OUT OF REFERENCE UNITS RANGE LAB GLUBL(LOINC 70-99 mg/dL ) High Glucose Meter 112 Result Comment: RN NOTIFIED Performed By: #### GLMET #### [place] [address] GLUCOSE METER Collected: 10/30/2017 Status: F Source: [facility] 5:18 PM HEALTH SYSTEM REPOSITORY TYPE CODE TESTS RESULT OUT OF REFERENCE UNITS RANGE LAB GLUBL(LOINC 70-99 mg/dL ) High Glucose Meter 119 Result Comment: RN NOTIFIED Performed By: #### GLMET #### [facility] [address] [address] CASE MANAGEM Observed: 10/30/2017 Status: COMPLETED Source: [facility] 2:39 PM [facility]IN[facility] OTHER CAMPUS REPOSITORY HNO ID: [id number] Author: Roro (Rn) PRACHI Schwartz Service: Care Management Author Type: Registered Nurse Type: Care Mgt Progress Note Filed: 10/30/2017 2:44 PM Note Text: CARE MANAGEMENT PROGRESS NOTE SERVICE DATE: 10/30/2017 SERVICE TIME: 1130 LOS: 4 days Needs Prior to Discharge: OT/PT Evaluation Spoke with Surgery MEDIA MANAGER who reports patient's son wants an evaluation for possible therapy/placement at discharge. PT/OT evaluation and recommendations pending. Continue to follow for discharge planning needs. SIGNATURE: Roro Schwartz RN PATIENT NAME: Vee Hyatt DATE: October 30, 2017 TIME: 2:39 PM PAGER/CONTACT #: [phone] GLUCOSE METER Collected: 10/30/2017 Status: F Source: [facility] 11:34 AM HEALTH SYSTEM REPOSITORY TYPE CODE TESTS RESULT OUT OF REFERENCE UNITS RANGE LAB GLUBL(LOINC 70-99 mg/dL ) High Glucose Meter 134 Performed By: #### GLMET #### [facility] [address] [place], [place] [address] CASE MANAGEM Observed: 10/30/2017 Status: COMPLETED Source: [place] 9:34 AM [facility] REPOSITORY HNO ID: [id number] Author: Roro (Rn) Lana RN Service: Care Management Author Type: Registered Nurse [...] 30, 2017 TIME: 9:34 AM PAGER/CONTACT #: [phone] GLUCOSE METER Collected: 10/30/2017 Status: F Source: [facility] 6:58 AM HEALTH SYSTEM REPOSITORY TYPE CODE TESTS RESULT OUT OF REFERENCE UNITS RANGE LAB GLUBL(LOINC 70-99 mg/dL ) High Glucose Meter 107 Result Comment: RN NOTIFIED Performed By: #### GLMET #### [place] [address] PROGRESS Observed: 10/30/2017 Status: COMPLETED Source: [place] 6:41 AM [facility] REPOSITORY HNO ID: [id number] Author: Jere Bryson Service: General Surgery Author [...] need SNF on dc, son requests [facility]. Discussed with patient's son that cardiopulmonary risks [...] kg/m2 O2 Therapy: Nasal Cannula IANDO: Date 10/29/17 0700 - 02/06/18 0659 10/30/17 07 - 10/31/17 0659 Shift 1470-6698 4813-5716 1356-3128 24 Hour Total 2495-4016 6363-8324 8241-5460 24 Hour Total I N T A K E PO 480 360 150 990 PO 480 360 150 990 IV 7167 407 5184 D5 NS 3711 546 0535 Shift Total 1480 315 965 8917 O U T P U T Urine [...] October 30, 2017 TIME: 6:41 AM Pager: [phone] HEMOGRAM/DIFF Collected: 10/30/2017 Status: F Source: [facility] 4:20 AM HEALTH SYSTEM REPOSITORY TYPE CODE [...] 0.79 LAB MONON(LOIN 0.27-0.70 thou/cmm C) Abs. [place] 0.42 LAB EOSN(LOINC 0.00-0.31 thou/cmm ) Abs. Eosin 0.14 LAB BASON(LOIN 0.01-0.08 thou/cmm C) Abs. Baso 0.04 Performed By: #### CBCD1 #### [place] [address] PHOSPHORUS BLOOD Collected: 10/30/2017 Status: F Source: [facility] 4:20 AM HEALTH SYSTEM REPOSITORY TYPE CODE TESTS RESULT OUT OF REFERENCE UNITS RANGE LAB PHOS(LOINC 2.5-4.9 mg/dL ) Low Phosphorus Blood 2.2 Performed By: #### PHOS #### [place] [address] MAGNESIUM BLOOD Collected: 10/30/2017 Status: F Source: [facility] 4:20 AM HEALTH SYSTEM REPOSITORY TYPE CODE TESTS RESULT OUT OF REFERENCE UNITS RANGE LAB MAG(LOINC) 1.6-2.6 mg/dL Magnesium Blood 2.0 Performed By: #### MAG #### [place] [address] BASIC PANEL Collected: 10/30/2017 Status: F Source: [facility] 4:20 AM HEALTH SYSTEM REPOSITORY TYPE CODE [...] Gap 6 Performed By: #### P8 #### [place] [address] MDRD GFR Collected: 10/30/2017 Status: F Source: [facility] 4:20 AM HEALTH SYSTEM REPOSITORY TYPE CODE TESTS RESULT OUT OF RANGE REFERENCE UNITS LAB GFRFN(LOINC >60mL/min/1.73m ) 2 eGFR >60 Result Comment: If the patient is , multiply the result by 1.210. Performed By: #### GFR #### [place] [address] GLUCOSE METER Collected: 10/29/2017 Status: F Source: [facility] 9:00 PM HEALTH SYSTEM REPOSITORY TYPE CODE TESTS RESULT OUT OF REFERENCE UNITS RANGE LAB GLUBL(LOINC 70-99 mg/dL ) High Glucose Meter 120 Result Comment: RN NOTIFIED Performed By: #### GLMET #### [place] [address] CONSULT Observed: 10/29/2017 Status: COMPLETED Source: [place] 5:27 PM CLIN[facility] OTHER CAMPUS REPOSITORY HNO ID: [id number] Author: Paul Shields Service: Gastroenterology Surgery Author Type: Physician Type: Consults Filed: 10/29/2017 5:41 PM Note Text: CONSULT: SURGERY SERVICE SERVICE DATE: 10/29/2017 REASON FOR CONSULT: Diaphragmatic hernia REQUESTING PHYSICIAN: Dr. Ludwig PRIMARY CARE PHYSICIAN: Diana George, WAREHOUSE ASSOCIATE Subjective I was asked to see this patient by Dr Ludwig for a recommendation on her diaphragmatic hernia. Ms. Hyatt is a 77 year old frail female who presents from [place] where she was seen for the flu. She was noted to have abdominal and right chest pain. A CT revealed a large diaphragmatic hernia. She has been having occasional right sided chest pain and has been in the ER several times per her son whom I spoke with on the phone.She was seen by a cardiotoracic surgeon in [place] in late 2015 who did not want [...] Dr. Douglas. SIGNATURE: Paul Shields MD, FACS, [facility] PATIENT NAME: Vee Hyatt DATE: October 29, 2017 TIME: 5:27 PM PAGER: GLUCOSE METER Collected: 10/29/2017 Status: F Source: [facility] 5:12 PM HEALTH SYSTEM REPOSITORY TYPE CODE TESTS RESULT OUT OF REFERENCE UNITS RANGE LAB GLUBL(LOINC 70-99 mg/dL ) High Glucose Meter 108 Result Comment: RN NOTIFIED Performed By: #### GLMET #### [place] [address] 12 LEAD ELECTROCARDIOGRAM Observed: 10/29/2017 Status: F Source: [place] 3:29 PM [facility] REPOSITORY [facility] Cardiovascular Services [address] [place] [address] 12 Lead EKG 10/25/17 2332 MR#: [id number] Acct: [id number] Name: VEE HYATT Rep #: [id number] : 1940 77 From: Orville Dumont MD Attending Dr: Maddy Bolaños Status: DIS AKIRA Ordering Dr: Immanuel Gonzales MD Date: 10/25/17 [place] [facility] [place] [...] ECG Confirmed by ORVILLE DUMONT MD ([id number]), editor in chief KELLEN SUAREZ ([id number]) on 10/29/2017 3:28:58 PM Referred By: Jose L Valenzuela Confirmed By:ORVILLE DUMONT MD 10/29/17 1529 Date Orville Dumont MD CC: Jose L Valenzuela MD Signed CONSULTATION Observed: 10/29/2017 Status: F Source: [place] 3:24 PM [facility] REPOSITORY [facility] Medical Records Department [address] [place] [address] Consultation 10/26/17 1047 MR#: [id number] Acct: [id number] Name: VEE HYATT Rep #: [id number] : 1940 77 From: Estefania Trinidad MD PCP: Jose L Valenzuela MD Status: DIS AKIRA Y Location: [place]3 [id number] Reason for Consult Date of Consultation: 10/26/17 [...] previously saw Dr. 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 Bar at [facility] about a little over a year ago for this but patient was not having symptoms at this time. Also discussed with the son Kalia per the patient's request and he suggested going back to [facility] if possible for transfer versus [facility] or the [facility] as they did like Dr. Bar. Did also discuss the patient and her son that there was a lesion on the left kidney which would also require further workup and on CT was concerning for renal cell carcinoma. Patient's no further questions at this time. Also discussed with Dr. Bolaños. Estefania Trinidad M.D. Pager: [phone] [facility] [address] [place] [address], [address] [place] [address] Office: [phone] Code Visit Inpatient Alis AND M: 55433 Init Hosp L1 10/29/17 1524 <Electronically signed by Estefania Trinidad MD> Date Estefania Trinidad MD Cosigner Signature (if applicable): Date CC: Gurmeet Urena MD; Jose L Valenzuela MD; Estefania Trinidad MD Signed CASE MGT INIT Observed: 10/29/2017 Status: COMPLETED Source: [facility] 3:09 PM CLINIC OTHER CAMPUS REPOSITORY HNO ID: [id number] Author: Roro (Rn) PRACHI Schwartz Service: Care Management Author Type: Registered Nurse Type: Care Mgt Initial Assessment Filed: 10/29/2017 3:14 PM Note Text: CARE MANAGEMENT: ASSESSMENT AND DISCHARGE PLAN SERVICE DATE: 10/29/2017 SERVICE TIME: 1430 PRIMARY CARE PHYSICIAN: Diana George CNP ADMISSION STATUS: Inpatient POTENTIAL DISCHARGE PLANS Home Patient/S[employer]er Stated Goals: Patient plans to return home when medically stable. Needs Prior to Discharge: None;To Be Determined Health Insurance: [employer] Plan Living Arrangement: Home, ranch home with 3 steps to enter; bedroom/bathroom on main level Lives With: Alone Financial Resources: N/A Primary Contact: Extended Emergency Contact Information Primary Emergency Contact: Kalia Hyatt [place] Relation: Son Supportive: Yes Other Important Patient [...] Directives? Yes: Living Will Durable Power of Telephone Recorder for Health Care: Kalia campbell , Does Patient Have Concerns About Advance Directives? No PRIOR TO ADMISSION: Baseline Mental Status: Alert AND Oriented, Person, Place , Time and Situation Functional Status: Independent (mostly) Does Patient Currently Receive Any Community Services or Home Care? 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 No FREEDOM OF CHOICE EXPLAINED: N/A --no needs noted at this time. HANDOFF COMMUNICATION: Patient's son will transport home at discharge. SIGNATURE: Roro Schwartz RN PATIENT NAME: Vee Hyatt DATE: October 29, 2017 TIME: 3:09 PM PAGER/CONTACT #: [phone] CASE MANAGEM Observed: 10/29/2017 Status: COMPLETED Source: [place] 12:21 PM [facility] REPOSITORY HNO ID: [id number] Author: Roro LiraRn) PRACHI Schwartz Service: Care Management Author Type: Registered Nurse Type: Care Mgt Progress Note Filed: 10/29/2017 12:24 PM Note Text: CARE MANAGEMENT PROGRESS NOTE SERVICE DATE: 10/29/2017 SERVICE TIME: 1222 LOS: 3 days Needs Prior to Discharge: None;To Be Determined Patient directly admitted from [facility] ED with Diaphragmatic hernia. Await treatment plans per General Surgery. Continue to follow for discharge planning needs. SIGNATURE: Roro Schwartz RN PATIENT NAME: Vee Hyatt DATE: October 29, 2017 TIME: 12:22 PM PAGER/CONTACT #: [phone] GLUCOSE METER Collected: 10/29/2017 Status: F Source: [facility] 11:33 AM HEALTH SYSTEM REPOSITORY TYPE CODE TESTS RESULT OUT OF REFERENCE UNITS RANGE LAB GLUBL(LOINC 70-99 mg/dL ) High Glucose Meter 114 Result Comment: RN NOTIFIED Performed By: #### GLMET #### [facility] [address] [address] NURSING PROG Observed: 10/29/2017 Status: COMPLETED Source: [place] 8:42 AM [facility] REPOSITORY HNO ID: [id number] Author: Eugenio LiraRn) PRACHI Saunders Service: Nursing Author Type: Registered Nurse Type: Nursing Progress Note Filed: 10/29/2017 8:46 AM Note Text: Nursing Progress Note Patient Name: Vee Hyatt Patient Location: [id number]-* Daily Note:Alerted Resident, Braydon, that pt was put on clears and needed insulin and blood sugar checks changed from q6 to achs. Resident to change orders. This note was completed by: Eugenio Saunders RN PROGRESS Observed: 10/29/2017 Status: COMPLETED Source: [place] 5:58 AM CLINIC OTHER CAMPUS REPOSITORY HNO ID: [id number] Author: Elliot Strickland Service: General Surgery Author [...] Date 10/28/17 07 - 10/29/17 0659 10/29/17 0700 - 10/30/17 0659 Shift 6498-5666 5816-6324 5253-5538 24 Hour Total 3329-1939 7764-4102 0840-6499 24 Hour Total I N T A K E IV 362 1000 1362 D5 NS 362 1000 1362 Shift Total 362 1000 1362 O U T P U T Urine 350 360 652 9020 Void (ml) 350 533 368 7942 Urine Incontinence/Not Saved 1 x 1 x 2 x Shift Total 350 419 340 2096 Weight (kg) 77.1 77.1 77.1 77.1 77.1 [...] October 29, 2017 TIME: 5:58 AM Pager: [phone] GLUCOSE METER Collected: 10/29/2017 Status: F Source: [facility] 5:44 AM HEALTH SYSTEM REPOSITORY TYPE CODE TESTS RESULT OUT OF REFERENCE UNITS RANGE LAB GLUBL(LOINC 70-99 mg/dL ) High Glucose Meter 114 Result Comment: RN NOTIFIED Performed By: #### GLMET #### [facility] [address] [id number] HEMOGRAM/DIFF Collected: 10/29/2017 Status: F Source: [facility] 3:35 AM HEALTH SYSTEM REPOSITORY TYPE CODE [...] LAB MONON(LOIN 0.27-0.70 thou/cmm C) Abs. High [place] 0.97 LAB EOSN(LOINC 0.00-0.31 thou/cmm ) Abs. Eosin 0.27 LAB BASON(LOIN 0.01-0.08 thou/cmm C) Abs. Baso 0.07 Result Comment: Smear scanned; tech agrees with automated differential Performed By: #### CBCD1 #### [place] [address] PHOSPHORUS BLOOD Collected: 10/29/2017 Status: F Source: [facility] 3:35 AM HEALTH SYSTEM REPOSITORY TYPE CODE TESTS RESULT OUT OF REFERENCE UNITS RANGE LAB PHOS(LOINC 2.5-4.9 mg/dL ) Phosphorus Blood 2.6 Performed By: #### PHOS #### [place] [address] MAGNESIUM BLOOD Collected: 10/29/2017 Status: F Source: [facility] 3:35 AM HEALTH SYSTEM REPOSITORY TYPE CODE TESTS RESULT OUT OF REFERENCE UNITS RANGE LAB MAG(LOINC) 1.6-2.6 mg/dL Magnesium Blood 2.2 Performed By: #### MAG #### [place] [address] BASIC PANEL Collected: 10/29/2017 Status: F Source: [facility] 3:35 AM HEALTH SYSTEM REPOSITORY TYPE CODE [...] Gap 6 Performed By: #### P8 #### [place] [address] MDRD GFR Collected: 10/29/2017 Status: F Source: [facility] 3:35 AM HEALTH SYSTEM REPOSITORY TYPE CODE TESTS RESULT OUT OF RANGE REFERENCE UNITS LAB GFRFN(LOINC >60mL/min/1.73m ) 2 eGFR >60 Result Comment: If the patient is , multiply the result by 1.210. Performed By: #### GFR #### [facility] [address] [address] GLUCOSE METER Collected: 10/28/2017 Status: F Source: [facility] 11:45 PM HEALTH SYSTEM REPOSITORY TYPE CODE TESTS RESULT OUT OF REFERENCE UNITS RANGE LAB GLUBL(LOINC 70-99 mg/dL ) High Glucose Meter 116 Result Comment: RN NOTIFIED Performed By: #### GLMET #### [facility] [address] [address] GLUCOSE METER Collected: 10/28/2017 Status: F Source: [facility] 5:56 PM HEALTH SYSTEM REPOSITORY TYPE CODE TESTS RESULT OUT OF REFERENCE UNITS RANGE LAB GLUBL(LOINC 70-99 mg/dL ) High Glucose Meter 127 Performed By: #### GLMET #### [facility] [address] [address] GLUCOSE METER Collected: 10/28/2017 Status: F Source: [facility] 11:57 AM HEALTH SYSTEM REPOSITORY TYPE CODE TESTS RESULT OUT OF REFERENCE UNITS RANGE LAB GLUBL(LOINC 70-99 mg/dL ) High Glucose Meter 127 Performed By: #### GLMET #### [facility] [address] [address] PROGRESS Observed: 10/28/2017 Status: COMPLETED Source: [place] 6:20 AM [facility] REPOSITORY O ID: [id number] Author: Elliot Strickland Service: General Surgery Author [...] kg/m2 O2 Therapy: Nasal Cannula IANDO: Date 10/27/17 07 - 10/28/17 0659 10/28/17 0700 - 10/29/17 0659 Shift 6378-2066 3475-4629 8498-7284 24 Hour Total 4002-7002 0350-6740 5101-5831 24 Hour Total I N T A [...] October 28, 2017 TIME: 6:20 AM Pager: [phone] GLUCOSE METER Collected: 10/28/2017 Status: F Source: [facility] 6:11 AM HEALTH SYSTEM REPOSITORY TYPE CODE TESTS RESULT OUT OF REFERENCE UNITS RANGE LAB GLUBL(LOINC 70-99 mg/dL ) High Glucose Meter 112 Performed By: #### GLMET #### [facility] [address] [address] HEMOGRAM/DIFF Collected: 10/28/2017 Status: F Source: [facility] 3:40 AM HEALTH SYSTEM REPOSITORY TYPE CODE [...] 1.62 LAB MONON(LOIN 0.27-0.70 thou/cmm C) Abs. [place] 0.64 LAB EOSN(LOINC 0.00-0.31 thou/cmm ) Abs. Eosin 0.26 LAB BASON(LOIN 0.01-0.08 thou/cmm C) Abs. Baso 0.04 Performed By: #### CBCD1 #### [facility] [address] [address] PHOSPHORUS BLOOD Collected: 10/28/2017 Status: F Source: [facility] 3:40 AM HEALTH SYSTEM REPOSITORY TYPE CODE TESTS RESULT OUT OF REFERENCE UNITS RANGE LAB PHOS(LOINC 2.5-4.9 mg/dL ) Phosphorus Blood 3.5 Performed By: #### PHOS #### [place] [address] MAGNESIUM BLOOD Collected: 10/28/2017 Status: F Source: [facility] 3:40 AM HEALTH SYSTEM REPOSITORY TYPE CODE TESTS RESULT OUT OF REFERENCE UNITS RANGE LAB MAG(LOINC) 1.6-2.6 mg/dL Magnesium Blood 2.3 Performed By: #### MAG #### [place] [address] BASIC PANEL Collected: 10/28/2017 Status: F Source: [facility] 3:40 AM HEALTH SYSTEM REPOSITORY TYPE CODE [...] Gap 7 Performed By: #### P8 #### [place] [address] MDRD GFR Collected: 10/28/2017 Status: F Source: [facility] 3:40 AM [facility] SYSTEM REPOSITORY TYPE CODE TESTS RESULT OUT OF RANGE REFERENCE UNITS LAB GFRFN(LOINC >60mL/min/1.73m ) 2 eGFR >60 Result Comment: If the patient is , multiply the result by 1.210. Performed By: #### GFR #### [facility] [address] [place], [place] [address] GLUCOSE METER Collected: 10/28/2017 Status: F Source: [facility] 12:02 AM HEALTH SYSTEM REPOSITORY TYPE CODE TESTS RESULT OUT OF REFERENCE UNITS RANGE LAB GLUBL(LOINC 70-99 mg/dL ) High Glucose Meter 123 Performed By: #### GLMET #### [facility] [address] [place], [place] [address] GLUCOSE METER Collected: 10/27/2017 Status: F Source: [facility] 5:34 PM HEALTH SYSTEM REPOSITORY TYPE CODE TESTS RESULT OUT OF REFERENCE UNITS RANGE LAB GLUBL(LOINC 70-99 mg/dL ) High Glucose Meter 104 Result Comment: RN NOTIFIED Performed By: #### GLMET #### [facility] [address] [place], [place] [address] GLUCOSE METER Collected: 10/27/2017 Status: F Source: [facility] 12:27 PM HEALTH SYSTEM REPOSITORY TYPE CODE TESTS RESULT OUT OF REFERENCE UNITS RANGE LAB GLUBL(LOINC 70-99 mg/dL ) High Glucose Meter 154 Performed By: #### GLMET #### [facility] [address] [place], [place] [address] PROGRESS Observed: 10/27/2017 Status: COMPLETED Source: [place] 7:03 AM [facility] REPOSITORY HNO ID: [id number] Author: Elliot Strickland Service: General Surgery Author [...] repair but like to do this non-urgently H Sergei Ludwig MD General Surgery Progress Note SERVICE [...] Date 10/26/17 07 - 10/27/17 0659 10/27/17 0700 - 10/28/17 0659 Shift 0123-4259 0856-0882 8164-5133 24 Hour Total 1717-6297 6650-9056 0478-8699 24 Hour Total I N T A [...] October 27, 2017 TIME: 7:03 AM Pager: [phone] GLUCOSE METER Collected: 10/27/2017 Status: F Source: [facility] 6:24 AM HEALTH SYSTEM REPOSITORY TYPE CODE TESTS RESULT OUT OF REFERENCE UNITS RANGE LAB GLUBL(LOINC 70-99 mg/dL ) High Glucose Meter 159 Result Comment: RN NOTIFIED Performed By: #### GLMET #### [facility] [address] [place] [id number] HEMOGRAM/DIFF Collected: 10/27/2017 Status: F Source: [facility] 4:37 AM HEALTH SYSTEM REPOSITORY TYPE CODE [...] 1.86 LAB MONON(LOIN 0.27-0.70 thou/cmm C) Abs. [place] 0.55 LAB EOSN(LOINC 0.00-0.31 thou/cmm ) Abs. Eosin 0.27 LAB BASON(LOIN 0.01-0.08 thou/cmm C) Abs. Baso 0.07 Performed By: #### CBCD1 #### [facility] [address] [place] [address] PHOSPHORUS BLOOD Collected: 10/27/2017 Status: F Source: [facility] 4:37 AM HEALTH SYSTEM REPOSITORY TYPE CODE TESTS RESULT OUT OF REFERENCE UNITS RANGE LAB PHOS(LOINC 2.5-4.9 mg/dL ) Phosphorus Blood 2.7 Performed By: #### PHOS #### [place] [address] MAGNESIUM BLOOD Collected: 10/27/2017 Status: F Source: [facility] 4:37 AM [facility]ALTH SYSTEM REPOSITORY TYPE CODE TESTS RESULT OUT OF REFERENCE UNITS RANGE LAB MAG(LOINC) 1.6-2.6 mg/dL Magnesium Blood 2.5 Performed By: #### MAG #### [place] [address] BASIC PANEL Collected: 10/27/2017 Status: F Source: [facility] 4:37 AM HEALTH SYSTEM REPOSITORY TYPE CODE [...] Gap 4 Performed By: #### P8 #### [place] [address] MDRD GFR Collected: 10/27/2017 Status: F Source: [facility] 4:37 AM [facility] SYSTEM REPOSITORY TYPE CODE TESTS RESULT OUT OF RANGE REFERENCE UNITS LAB GFRFN(LOINC >60mL/min/1.73m ) 2 eGFR >60 Result Comment: If the patient is , multiply the result by 1.210. Performed By: #### GFR #### [facility] [address] [place], [place] [address] GLUCOSE METER Collected: 10/27/2017 Status: F Source: [facility] 12:02 AM [facility]ALTH SYSTEM REPOSITORY TYPE CODE TESTS RESULT OUT OF REFERENCE UNITS RANGE LAB GLUBL(LOINC 70-99 mg/dL ) High Glucose Meter 138 Result Comment: RN NOTIFIED Performed By: #### GLMET #### [facility] [address] [place], [place] [address] GLUCOSE METER Collected: 10/26/2017 Status: F Source: [facility] 6:38 PM HEALTH SYSTEM REPOSITORY TYPE CODE TESTS RESULT OUT OF REFERENCE UNITS RANGE LAB GLUBL(LOINC 70-99 mg/dL ) High Glucose Meter 114 Result Comment: RN NOTIFIED Performed By: #### GLMET #### [facility] [address] [place], [place] [address] HISTORY PHYSICAL Observed: 10/26/2017 Status: COMPLETED Source: [place] 5:24 PM [facility]IN[facility] OTHER CAMPUS REPOSITORY HNO ID: [id number] Author: Elliot Strickland Service: General Surgery Author [...] who presents as a direct admit from [facility] ED for right-sided diaphragmatic hernia. Pt states [...] this diaphragmatic hernia by Dr. Bar in [place], but decision made not to pursue operation due to anesthesia concerns and likelihood of post-op pain control issues. Workup at [facility] included CTA of chest (no PE) and labs significant for WBC 13.3, lipase 201. Normal results for the following: lactate, troponin, hepatic panel, PT/INR, Hgb, urinalysis. CT abdomen/pelvis showed large anterior right-sided diaphragmatic hernia with multiple distal small bowel loops, transverse colon, mesenteric vessels, and fat (and an incidental renal lesion c/f renal cell carcinoma - pt notified). Also of note, [facility] care team believes pt may need SNF at discharge for rehab. Physician also mentioned believe the patient also has a psychological overlay and fixates on her abdominal pain and seeks nausea and pain meds. History provided from patient and son as well as notes from [facility] ED. FUNCTIONAL STATUS: Mostly Independent PAST MEDICAL [...] reviewed for today's visit: Outside chart from [facility] reviewed. - see HPI for significant findings [...] DISCHARGE SUMMARY Observed: 10/26/2017 Status: F Source: [place] 4:16 PM [facility] REPOSITORY [facility] Medical Records Department [address] [place] [id number] Discharge Summary 10/26/17 1308 MR#: [id number] Acct: [id number] Name: VEE HYATT Rep #: [id number] : 1940 77 From: Deisy Garvey SUBSTANCE ABUSE RN-C PCP: Jose L Valenzuela MD Status: DIS AKIRA Y Location: [address] ADDENDUM by Maddy Bolaños on 10/26/17 at [...] prior psychiatric regimen who presented to the [facility] ED on 10/26/17 early AM with [...] regimen, PRN anti-emetics while awaiting transfer to [facility] who accepted patient. DAY OF DISCHARGE PROGRESS NOTE: Subjective: Patient with ongoing abdominal discomfort since admission this AM with nausea without emesis. She has several complaints including timeliness of nurse light being answered. Patient denies fever, chills, emesis, chest pain or dyspnea. Patient agreeable to discharge to [facility] for further evaluation of abdominal pain [...] hospital summary above. OBSV E AND M: [address] Observ/hosp same date L3 10/26/17 1616 <Electronically signed by Maddy Bolaños > Date Maddy Bolaños cc: MAXIMILIANO Garvey; Maddy Bolaños; Jose L Valenzuela MD [...] fixation (Chronic) left femur 06/22, Dr Spears, [facility] Tinea unguium (Chronic) Dyskinesia, tardive (Chronic) [...] for repair. Patient was previously seen at [facility] but was told intervention was not able to be completed at their facility due to complicated case. [facility] willing to accept patient and patient [...] applicable 10/26/17 1434 <Electronically signed by Deisy VIERA> Date Deisy AMEZQUITAC 10/26/17 1559<Electronically signed by Maddy Bolaños > Cosigner Signature (if applicable): Date Maddy Bolaños CC: SUBSTANCE ABUSE RNNanC Deisy Garvey; Maddy Bolaños; Jose L Valenzuela MD Signed Observed: 10/26/2017 Status: F Source: [place] RESPIRATORY PANEL 11:07 AM [facility] MOLECULAR REPOSITORY RP PANEL ADENOVIRUS Not Detected [...] acid amplification Performed By: #### M100.638 #### [facility] [address] [place], [address] LIPASE Collected: 10/26/2017 Status: F Source: [place] 9:15 AM [facility] REPOSITORY TYPE CODE TESTS RESULT OUT OF RANGE REFERENCE UNITS LAB L501.2450 73-393 U/L Normal LIPASE 201 Performed By: #### L501.2450 #### [facility] [address] [place], [address] EMERGENCY DEPARTMENT Observed: 10/26/2017 Status: F Source: [place] SUMMARY 5:02 AM [facility] REPOSITORY [facility] Medical Records Department [address] [place] [address] [place] [address] Emergency Department Summary 10/26/17 0306 MR#: [id number] Acct: [id number] Name: VEE HYATT Rep #: [id number] : 1940 77 From: Immanuel Gonzales MD [...] not new. She saw a surgeon in [place] and at this time she is not [...] cell carcinoma This note was generated with DeepField dictation software. It may contain incorrect words, [...] problems, contact your Primary Care Provider. Call [facility] ([phone]) or report to the closest Emergency Room. Call 911 if necessary. 10/26/17 3042 <Electronically signed by Immanuel Gonzales MD> Date Immanuel Gonzales MD Cosigner Signature (If Indicated): Date CC: Jose L Valenzuela MD HISTORY AND PHYSICAL Observed: 10/26/2017 Status: F Source: [place] EXAM 5:02 AM [facility] REPOSITORY [facility] Medical Records Department [address] [place] [address] History and Physical 10/26/17 0448 MR#: [id number] Acct: [id number] Name: VEE HYATT Rep #: [id number] : 1940 77 From: Rommel Hansen DO PCP: Jose L Valenzuela MD Status: ADM AKIRA Y Location: MS3 [id number] Problem List (1) Generalized weakness Status: Acute (2) Abdominal pain Status: Acute Qualifiers: Abdominal location: lower abdomen, unspecified Qualified Code(s): R10.30 - Lower abdominal pain, unspecified History of Present Illness Date of Admission: 10/26/17 Chief Complaint: Generalized weakness, generalized abdominal pain The patient is a 77 year old F who was seen in the emergency room at [facility] with a chief complaint of abdominal pain which she states worsened on 10/25/17, she has a history of chronic abdominal pain and a large diaphragmatic hernia on the right side. Patient was recently hospitalized here at [facility] for gastroenteritis and hypoxia, she returned home the next day. During that admission I cared for the patient and I talked with the patient's primary care physician who confirms that the patient has a history of chronic abdominal pain and overuse of antinausea medications. Patient was seen in consultation and [place] by a surgeon for repair of her [...] son became upset that I mentioned a [facility], he felt that if she went to a [facility] she would take it as being a [...] fixation (Chronic) left femur 06/22, Dr Spears, [facility] Tinea unguium (Chronic) Dyskinesia, tardive (Chronic) Takatsuki syndrome (Chronic) Brain aneurysm (Chronic) Takotsubo syndrome (Chronic) Hypertension (Chronic) Allergies No Known Allergies Allergy (Verified 03/17/17 10:29) Home Medications: Ambulatory Orders Medication Instructions Recorded Surgical History: appendectomy, cholecystectomy, herniorrhaphy, tonsillectomy, - - 06/22/15 left hip CRIF Psychiatric History: Anxiety, Depression 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 Code Visit OBSV E AND M: 67625 Initial observation care L3 10/26/17 0502 <Electronically signed by Rommel Hansen DO> Date Rommel Hansen DO Cosigner Signature: Date (if applicable) CC: Rommel Hansen DO; Jose L Valenzuela MD Signed URINALYSIS, COMPLETE Collected: 10/26/2017 Status: F Source: [place] 12:45 AM [facility] REPOSITORY Order Comment: Order Date: 10/25/17 How [...] URINE SEEN Performed By: #### L400.0001 #### [facility] [address] [place], [address] PROTHROMBIN TIME W/INR Collected: 10/26/2017 Status: F Source: [place] 12:30 AM [facility] REPOSITORY Order Comment: REDRAW. PREVIOUS SPECIMEN REJECTED DUE TO HEMOLYSIS >4+. 10/26/17 0004 Carlene George. TYPE CODE TESTS RESULT OUT OF RANGE REFERENCE UNITS LAB L300.4150 11.7-14.9 SECONDS Normal PROTIME 12.6 LAB L300.4200 Normal INR 1.0 Performed By: #### L300.3900, L300.4310 #### [facility] [address] [place], [place], [address] PARTIAL THROMBOPLAST Collected: 10/26/2017 Status: F Source: [place] TIME 12:30 AM [facility] REPOSITORY Order Comment: REDRAW. PREVIOUS SPECIMEN REJECTED DUE TO HEMOLYSIS >4+. 10/26/17 0004 Carlene George. TYPE CODE TESTS RESULT OUT OF RANGE REFERENCE UNITS LAB L300.4310 24.1-36.2 Seconds Normal PTT 24.2 Performed By: #### L300.3900, L300.4310 #### [facility] [address] [place], [place], [address] LACTIC ACID Collected: 10/26/2017 Status: F Source: [place] 12:30 AM [facility] REPOSITORY Order Comment: REDRAW. PREVIOUS SPECIMEN REJECTED DUE TO HEMOLYSIS >4+. 10/26/17 0004 Carlene George. Yes/No query for Sepsis Lactate Rule Y TYPE CODE TESTS RESULT OUT OF RANGE REFERENCE UNITS LAB L503.6005 0.4-2.0 mmol/L Normal LACTIC ACID 0.6 Performed By: #### L503.6005 #### [facility] [address] [place], [address] CT ANGIO ABD AND Observed: 10/25/2017 Status: F Source: [place] PEL W/O AND W/DYE 11:44 PM [facility] REPOSITORY [facility] Imaging Services [address] [place] [address] CT ANGIO ABD AND PEL W/O AND W/DYE MR#: [id number] Acct: [id number] Name: VEE HYATT Rep #: [id number] : 1940 F 77 From: Richard Garcia MD PCP: Jose L Valenzuela MD Status: REG ER Study: CT ANGIO ABD AND PEL W/O AND W/DYE Date of Exam: 10/26/17 Exam# [id number] Ordering Dr: Immanuel Gonzales MD STUDY: CTA [...] Immanuel Gonzales MD; Jose L Valenzuela MD Card Filer: Signed CTA CHEST W/WO Observed: 10/25/2017 Status: F Source: [place] CONTRAST 11:42 PM [facility] REPOSITORY [facility] Imaging Services [address] [place] [address] CTA Chest W/WO Contrast MR#: [id number] Acct: [id number] Name: VEE HYATT Rep #: [id number] : 1940 F 77 From: Richard Garcia MD PCP: Jose L Valenzuela MD Status: [facility] Study: CTA Chest W/WO Contrast Date of Exam: 10/26/17 Exam# [id number] Ordering Dr: Immanuel Gonzales MD STUDY: CTA [...] Immanuel Gonzales MD; Jose L Valenzuela MD Card Filer: Signed CBC W/DIFF, AUTOMATED Collected: 10/25/2017 Status: F Source: [place] 11:35 PM [facility] REPOSITORY TYPE CODE TESTS RESULT OUT OF [...] Lymph 4.37 Performed By: #### L100.0100 #### [facility] [place], [place], [address] COMPREHENSIVE METABOLIC Collected: 10/25/2017 Status: F Source: [place] WARD 11:35 PM [facility] REPOSITORY Order Comment: 'TROP' Serial specimen #1, [...] Performed By: #### L500.4050, L501.2450, L501.4010 #### [facility] [address] [place], [address] LIPASE Collected: 10/25/2017 Status: F Source: [place] 11:35 PM [facility] REPOSITORY Order Comment: 'TROP' Serial specimen #1, #2, #3, or #4: 1 TYPE CODE TESTS RESULT OUT OF REFERENCE UNITS RANGE LAB L501.2450 73-393 U/L High LIPASE 483 Performed By: #### L500.4050, L501.2450, L501.4010 #### [facility] [address] [place], [address] TROPONIN-I Collected: 10/25/2017 Status: F Source: [place] 11:35 PM [facility] REPOSITORY Order Comment: 'TROP' Serial specimen #1, #2, #3, or #4: 1 TYPE CODE TESTS RESULT OUT OF RANGE REFERENCE UNITS LAB L501.4010 <0.06 ng/mL Normal < 0.02 TROPONIN-I Result Comment: TROPONIN-I EXPECTED VALUES <0.05 NEGATIVE 0.06 - 0.59 AT RISK OF RI > OR = 0.60 SUGGEST RI Performed By: #### L500.4050, L501.2450, L501.4010 #### [facility] [address] [place], [address] CT-CTA CHEST W/WO Observed: 10/25/2017 Status: F Source: [place] CONTRAST IMPORT 12:00 AM [facility] REPOSITORY Images were obtained outside of [facility] [id number] CT-CT ANGIO ABD PEL Observed: 10/25/2017 Status: F Source: [place] W/O W/DYE IMPORT 12:00 AM [facility] REPOSITORY Images were obtained outside of [facility] [id number] 12 LEAD ELECTROCARDIOGRAM Observed: 10/23/2017 Status: F Source: [place] 9:46 AM [facility] Cardiovascular Services [address] [place] [address] 12 Lead EKG 10/19/17 0910 MR#: [id number] Acct: [id number] Name: VEE HYATT Rep #: [id number] : 1940 76 From: Immanuel Mancia MD Attending Dr: Rommel Hansen DO Status: DIS AKIRA Ordering Dr: Jose Gaudalupe Hernandez MD Date: 10/19/17 Location: MS3 Sex: F C Admitted: 10/19/17 Test Reason [...] Abnormal ECG Confirmed by IMMANUEL MANCIA ([id number]), editor in chief KELLEN SUAREZ ([id number]) on 10/23/2017 9:45:43 AM Referred By: Jose L Valenzuela Confirmed By:IMMANUEL MANCIA 10/23/17 0945 Date Immanuel Mancia MD CC: Jose L Valenzuela MD Signed DISCHARGE SUMMARY Observed: 10/21/2017 Status: F Source: [place] 8:47 AM [facility] Medical Records Department [address] [place] [address] Discharge Summary 10/20/17 1326 MR#: [id number] Acct: [id number] Name: VEE HYATT Rep #: [id number] : 1940 76 From: Cesar MORALES PCP: Jose L Valenzuela MD Status: DIS AKIRA Y Location: MS3 [id number] ADDENDUM by Rommel Hansen DO on 10/21/17 at 0847 Code Visit OBSV E AND M: 43051 Observation care discharge 10/21/17 0847 <Electronically signed [...] CARMEN Fernandez; Rommel Hansen DO; Jose L Valnezuela MD * Signed ADDENDUM by CARMEN Fernandez on 10/20/17 at 1453 Code Visit Echo did show moderate pulmonary htn with RVSP 48 mmHg - increased from 29 on 01/2017. EF 75%, stage 1 diastolic dysfunction 10/20/17 1453 <Electronically signed by Cesar Fernandez PA> Date Cesar Fernandez cc: CARMEN Fernandez; Rommel [...] fixation (Chronic) left femur 06/22, Dr Spears, [facility] Tinea unguium (Chronic) Dyskinesia, tardive (Chronic) [...] PA-C under the supervision of Doctor Hansen. [] Discharge Diet: Low fat/ Low Cholesterol, 4000 mg Sodium Diet, Bananas, Rice, Applesauce and [place] Discharge Activity: Return to Normal Activity Home [...] (Choose all that apply): None applicable 10/20/17 1334 <Electronically signed by Cesar MORALES> Date Cesar MORALES Cosigner Signature (if applicable): Date CC: CARMEN Fernandez; Rommel Hansen DO; Jose L Valenzuela MD Signed CONSULTATION Observed: 10/21/2017 Status: F Source: [place] 5:27 AM [facility] REPOSITORY [facility] Medical Records Department [address] [place] [address] Consultation 10/20/17 0742 MR#: [id number] Acct: [id number] Name: VEE HYATT Rep #: [id number] : 1940 76 From: Cresencio Barkley MD PCP: Jose L Valenzuela MD Status: DIS AKIRA Y Location: MS3 [id number] Problem List (1) Gastroenteritis Status: Acute (2) Hypoxia Status: Acute (3) Diabetic neuropathy Status: Acute Qualifiers: Diabetes mellitus type: type 2 Diabetes mellitus complication detail: with other neurological complication Qualified Code(s): E11.49 - Type 2 diabetes mellitus with other diabetic neurological complication (4) Status post total hip replacement, left Status: Acute Comment: 08/03/15, failed concervative pinning, completed by Dr Spears [facility] (5) Benign essential HTN Status: Chronic (6) Brain aneurysm Status: Chronic (7) CAD (coronary artery disease) Status: Chronic Qualifiers: Coronary Disease-Associated Artery/Lesion type: pala artery [place] vs. transplanted heart: pala heart Associated angina: without angina Qualified Code(s): I25.10 - Atherosclerotic heart disease of pala coronary artery without angina pectoris (8) Depression [...] medical history listed below, who presented to [facility] on 10/19/2017 secondary to generalized weakness, [...] later states that she was evaluated in [place] approximately 1 year ago for possible correction [...] fixation (Chronic) left femur 06/22, Dr Spears, [facility] Tinea unguium (Chronic) Dyskinesia, tardive (Chronic) Takatsuki syndrome (Chronic) Brain aneurysm (Chronic) Takotsubo syndrome (Chronic) Hypertension (Chronic) Allergies No Known Allergies Allergy (Verified 03/17/17 10:29) Home Medications: Ambulatory Orders Medication Instructions Recorded Clonidine HCl 0.05 tab PO BID 03/17/17 Surgical History: appendectomy, cholecystectomy, herniorrhaphy, tonsillectomy, - - 06/22/15 left hip CRIF Psychiatric History: No pertinent psych hx, Depression 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 Code Visit Inpatient E AND M: 67513 Init Hosp L2 10/21/17 0527 <Electronically signed by Cresencio Barkley MD> Date Cresencio Barkley MD Cosigner Signature (if applicable): Date CC: Cresencio Barkley MD; Jose L Valenzuela MD Signed ECHO, COMPLETE W/ Observed: 10/20/2017 Status: F Source: [place] CONTRAST 2:28 PM [facility] REPOSITORY [facility] Cardiovascular Services [address] [place] [address] Echo Complete 10/20/17 1145 MR#: [id number] Acct: [id number] Name: VEE HYATT Rep #: [id number] : 1940 76 From: Immanuel Mancia MD Attending Dr: Rommel Hansen DO Status: ADM AKIRA Ordering Dr: Cresencio Barkley MD Date: 10/20/17 Location: MS3 Sex: F C Admitted: 10/19/17 Reason For [...] to 48 mm Hg. Ordering Physician: Cresencio Barlkey Referring Physician: Jose L Valenzuela Performed By: Huang Ruth RCS 10/20/17 1428 Date Immanuel Mancia MD CC: Cresencio Barkley MD; Jose L Valenzuela MD Date Dictated: 10/20/17 1145 Date Transcribed: 10/20/171427 Card Filer: Signed DISCHARGE INSTRUCTION Observed: 10/20/2017 Status: F Source: [place] 11:44 AM [facility] REPOSITORY [facility] Medical Records Department [address] [place] [address] Instructions for Home/Discharge Instructions 10/20/17 1143 MR#: [id number] Acct: [id number] Name: VEE HYATT Rep #: [id number] : 1940 76 From: Cesar MORALES PCP: [...] 10/20/2017 Status: F Source: [place] 6:27 AM [facility] REPOSITORY TYPE CODE TESTS RESULT OUT OF [...] Lymph 0.77 Performed By: #### L100.0100 #### [facility] [address] [place], [address] BASIC METABOLIC Collected: 10/20/2017 Status: F Source: [place] PROFILE (BMP) 6:27 AM [facility] REPOSITORY TYPE CODE TESTS RESULT OUT OF [...] GAP 6 Performed By: #### L500.2500 #### [facility] [address] [place], [place], [address] HISTORY AND PHYSICAL Observed: 10/19/2017 Status: F Source: [place] EXAM 6:18 PM [facility] REPOSITORY [facility] Medical Records Department [address] [place] [address] History and Physical 10/19/17 1510 MR#: [id number] Acct: [id number] Name: VEE HYATT Rep #: [id number] : 1940 76 From: Cesar MORALES PCP: Jose L Valenzuela MD Status: ADM AKIRA Y Location: [place] [address] ADDENDUM by Rommel Royaevette DO on 10/19/17 at 1818 Code Visit Vision seen and examined independently of Cesar Fernandez, she came to the ER today at [facility] with complaints of abdominal pain, nausea [...] and plan of care and endorse both 10/19/17 1818 <Electronically signed by Rommel Hansen DO> Date [...] fixation (Chronic) left femur 06/22, Dr Spears, [facility] Tinea unguium (Chronic) Dyskinesia, tardive (Chronic) Takatsuki syndrome (Chronic) Brain aneurysm (Chronic) Takotsubo syndrome (Chronic) Hypertension (Chronic) Allergies No Known Allergies Allergy (Verified 03/17/17 10:29) Home Medications: Ambulatory Orders Medication Instructions Recorded Clonidine HCl 0.05 tab PO BID 03/17/17 Surgical History: appendectomy, cholecystectomy, herniorrhaphy, tonsillectomy, - - 06/22/15 left hip CRIF Psychiatric History: No pertinent psych hx, Depression 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 10/19/17 1524 <Electronically signed by Cesar MORALES> Date Cesar MORALES 10/19/17 1813<Electronically signed by Rommel Hansen DO> Cosigner Signature: Date (if applicable) Rommel Hansen DO CC: CARMEN Fernandez; Rommel Hansen DO; Jose L Valenzuela MD Signed EMERGENCY DEPARTMENT Observed: 10/19/2017 Status: F Source: [place] SUMMARY 6:12 PM [facility] REPOSITORY [facility] Medical Records Department [address] [place] [address] Emergency Department Summary 10/19/17 0930 MR#: [id number] Acct: [id number] Name: VEE HYATT Rep #: [id number] : 1940 76 From: Jose Guadalupe Hernandez [...] 2. Hypoxia This note was generated with [employer] The[employer]ation software. It may contain incorrect words, spelling, [...] problems, contact your Primary Care Provider. Call [facility] ([phone]) or report to the closest Emergency Room. Call 911 if necessary. 10/19/17 1812 <Electronically signed by Jose Guadalupe Hernandez MD> Date Jose Guadalupe Hernandez MD Cosigner Signature (If Indicated): Date CC: Jose L Valenzuela MD CHEST WITHOUT Observed: 10/19/2017 Status: F Source: [place] CONTRAST 4:57 PM [facility] REPOSITORY [facility] Imaging Services [address] [place] [address] Chest without Contrast MR#: [id number] Acct: [id number] Name: EDMARVEE Maggy Rep #: [id number] : 1940 F 76 From: Lenny Cook PCP: Jose L Valenzuela MD Status: ADM AKIRA Study: Chest without Contrast Date of Exam: 10/19/17 Exam# [id number] Ordering Dr: Rommel Hansen DO STUDY: CT [...] Rommel Hansen DO; Jose L Valenzuela MD Card Filer: Signed BLOOD GASES BY CPS Collected: 10/19/2017 Status: F Source: [place] 1:30 PM [facility] HOSPITAL REPOSITORY TYPE CODE TESTS RESULT OUT OF [...] SO2 ISTAT Performed By: #### L9000.0800 #### [facility] Point of Care [address] [place] [address] URINALYSIS, COMPLETE Collected: 10/19/2017 Status: F Source: [place] 11:15 AM [facility] REPOSITORY Order Comment: Order Date: 10/19/17 How [...] URINE SEEN Performed By: #### L400.0001 #### [facility] [address] [place], [address] CBC W/DIFF, AUTOMATED Collected: 10/19/2017 Status: F Source: [place] 9:30 AM [facility] REPOSITORY TYPE CODE TESTS RESULT OUT OF [...] Lymph 0.26 Performed By: #### L100.0100 #### [facility] [address] [place], [place], [address] COMPREHENSIVE METABOLIC Collected: 10/19/2017 Status: F [facility] REPOSITORY TYPE CODE TESTS RESULT OUT OF [...] GAP 8 Performed By: #### L500.4050 #### [facility] [place], [place], [address] LACTIC ACID Collected: 10/19/2017 Status: F Source: [place] 9:30 AM [facility] REPOSITORY Order Comment: Yes/No query for Sepsis Lactate Rule Y TYPE CODE TESTS RESULT OUT OF RANGE REFERENCE UNITS LAB L503.6005 0.4-2.0 mmol/L Normal LACTIC ACID 1.0 Performed By: #### L503.6005 #### [facility] [address] [place], [address] CHEST 1 VIEW Observed: 10/19/2017 Status: F Source: [place] (PORTABLE) 9:00 AM [facility] REPOSITORY [facility] Imaging Services [address] [place] [address] Chest 1 View (Portable) MR#: [id number] Acct: [id number] Name: VEE HYATT Rep #: [id number] : 1940 F 76 From: Fan Benavidze MD PCP: Jose L Valenzuela MD Status: REG ER Study: Chest 1 View (Portable) Date of Exam: 10/19/17 Exam# [id number] Ordering Dr: Jose Guadalupe Hernandez MD STUDY: [...] Fan Benavidez MD at 9:26 EST Tel [phone], Service support , CC: Jose Guadalupe Hernandez; Jose L Valenzuela MD Card Filer: Signed ABDOMEN/PELVIS WITHOUT Observed: 10/19/2017 Status: F Source: SUS[place] CONT 9:00 AM [facility] REPOSITORY [facility] Imaging Services [address] [place] [address] Abdomen/Pelvis without Cont MR#: [id number] Acct: [id number] Name: VEE HYATT Rep #: [id number] : 1940 F 76 From: Oren Monk DO PCP: Jose L Valenzuela MD Status: REG ER Study: Abdomen/Pelvis without Cont Date of Exam: 10/19/17 Exam# [id number] Ordering Dr: Jose Guadalupe Hernandez MD STUDY: [...] Jose Guadalupe Hernandez; Jose L Valenzuela MD Card Filer: Signed ALLERGIES ALLERGIES DATE TYPE / CODE NAME / CODE REACTION SEVERITY SOURCE 10/09/2018 Drug hydrocodone/F006 Nausea Unknown [facility]416 617229(RXNORM) [facility] 470082(SNOM Repository ED CT) 10/09/2018 Drug acetaminophen/F0 Nausea Unknown [facility][phone](RXNORM) [facility] 090735(SNOM Repository ED CT) 10/09/2018 Drug sulfamethoxazole Nausea Unknown [facility]/416 /[id number]([facility] 640831(SNOM ) Repository ED CT) 10/09/2018 Drug trimethoprim/F00 Nausea Unknown [facility]/900 3522039(RXNORM) [facility] 277095(SNOM Repository ED CT) 09/07/2018 Drug No Known Unknown [facility]/416 Allergies/W10617 Hospital 565626(SNOM 0388(RXNORM) Repository ED CT) Drug NO KNOWN [facility] Class/49204 ALLERGIES Main [place] 1003(SNOMED Repository CT) [id number] NO KNOWN [facility] Repository ENCOUNTERS ENCOUNTERS ADMIT/DISCHARGE ACCOUNT NUMBER ADMITTING ENCOUNTER LOCATION SOURCE CLASS 10/09/2018/10/09/19 [id number] Emergency Donna Sussy 19 [facility] ding:ED Repository 09/12/2018/09/28/19 [id number] Perez Moseley Chi Inpatient Donna Sussy 19 Encounter [facility] ding:TCURoom Repository : PFK85Hxj: 1 09/09/2018 [id number] Termarta, Ambulatory BMSBuilding: Donna Rommel BMS.[facility] Repository 09/09/2018 [id number] Maineeletsevette, Ambulatory BMSBuilding: Sussy Rommel BMS.[facility] Repository 09/09/2018/09/12/20 [id number] Tereletsky, Inpatient Donna Donna 18 Rommel Encounter [facility] ding:[id number] Repository : [id number]: 1 09/09/2018 [id number] Maineeletsevette, Ambulatory BMSBuilding: Donna Rommel BMS.[facility] Repository 09/09/2018 [id number] Maineeletsevette, Ambulatory BMSBuilding: Sussy Rommel BMS.[facility] Repository 09/07/2018/09/07/20 [id number] Emergency Donna Donna 18 [facility] ding:ED Repository 09/07/2018/09/07/20 [id number] Ambulatory BMSBuilding: Sussy 18 BMS.CF.[facility] Repository 05/01/2018 [id number] Ambulatory [facility] ding:MFPLAB Repository 01/24/2018 [id number] Ambulatory [facility] ding:MFPLAB Repository 01/01/2018/01/04/20 [id number] Ambulatory [address] Repository 01/01/2018/01/02/20 [id number] Ambulatory [address] Repository 01/01/2018/01/02/20 [id number] Ambulatory [address] Repository 12/31/2017 [id number] Ambulatory [facility] ding:MFPLAB Repository 11/03/2017/11/04/19 [id number] [facility] ding:ED Repository 11/03/2017/11/17/19 [id number] Perez Moseley Chi Inpatient Donna Donna 18 Encounter [facility] ding:TCURoom Repository : [id number]: 1 10/26/2017/11/03/19 [id number] AWENDER, Inpatient Juarez 18 RAIZA S Encounter [facility] Other [place] Repository 10/26/2017/11/03/19 [id number] AWENDER, H S Inpatient AKRON [facility] 18 Encounter [facility] MEDICAL Repository CENTERBuildi nARoom: [id number]: 10/26/2017 [id number] Tereletsky, Ambulatory BMSBuilding: Sussy Rommel BMS.[facility] Repository 10/26/2017/10/26/19 [id number] Tereletsky, Ambulatory Sussy Donna 18 [facility] ding:[id number] Repository : HE065Apo: 10/26/2017 [id number] Tereletsky, Ambulatory BMSBuilding: Sussy Rommel BMS.CF.[facility] Repository 10/19/2017/10/19/19 [id number] Tereletsky, Emergency Sussy Sussy 18 [facility] ding:QI2Ntug Repository : LI360Dgl: 1 PAYERS PAYERS ENCOUNTER GUARANTOR PAYER SUBSCRIBER SOURCE 10/09/2018 VEE [id number] Primary VEE A LANCEDOB: Sussy TALIB Insurance:[place] [id number] [id number]: (330) OPolicy Number: Repository [phone] () [id number] Date:4620-94-15RZ [facility] [address] [address]XH: 10/09/2018 Secondary NOT GIVENUNK Sussy Insurance:SELF PAY [facility] Number: Effective Repository Date:2018-10-09 09/12/2018 VEE [id number] Primary VEE A LANCEDOB: Sussy TALIB Insurance:LENARD [id number] Ville [id number]: (330) HMOPolicy Number: Repository [phone] () [id number] Date:6055-02-52GM [address] [address]GP: 09/12/2018 Secondary NOT GIVENUNK Donna Insurance:SELF PAY [facility] Number: Effective Repository Date:2018-09-12 09/09/2018 VEE A [id number] Primary VEE A LANCEDOB: Sussy TALIB Insurance:LENARD [id number] [address]Lmi: (330) OPolicy Number: Repository [phone] () [id number] Date:4085-54-66YZ [address] [address]IB: 09/09/2018 Secondary NOT GIVENUNK Sussy Insurance:SELF PAY [facility] Number: Effective Repository Date:2018-09-09 09/09/2018 VEE A [id number] Primary VEE A LANCEDOB: Sussy TAILB Insurance:[place] [id number] Ville [id number]: (330) [facility] [phone] () [id number] Date:7705-19-76UZ [address] [place] [address]UA: 09/09/2018 Secondary NOT GIVENUNK Donna Insurance:SELF PAY [facility] Number: Effective Repository Date:2018-09-09 09/09/2018 VEE A [id number] Primary VEE A LANCEDOB: Sussy TALIB Insurance:[place] [id number] Arms Hospital [address]Mwa: (517) OPolicy Number: Repository [phone] () [id number] Date:8344-64-53VI [address] [place] [address]CM: 09/09/2018 Secondary NOT GIVENUNK Sussy Insurance:SELF PAY [facility] Number: Effective Repository Date:2018-09-09 09/09/2018 VEE A [id number] Primary VEE A LANCEDOB: Sussy TALIB Insurance:LENARD [id number] Arms Hospital [address]Xlz: (330) OPolicy Number: Repository [phone] () [id number] Date:5030-83-64DL [address] [place] [address]CL: 09/09/2018 Secondary NOT GIVENUNK Sussy Insurance:SELF PAY [facility] Number: Effective Repository Date:2018-09-09 09/09/2018 VEE A [id number] Primary VEE A LANCEDOB: Sussy TALIB Insurance:[place] [id number] Ville [id number]: (330) OPolicy Number: Repository [phone] () [id number] Date:9843-45-16LV [facility] [address] [address]VU: 09/09/2018 Secondary NOT GIVENUNK Sussy Insurance:SELF PAY [facility] Number: Effective Repository Date:2018-09-09 09/07/2018 VEE A [id number] Primary VEE A LANCEDOB: Donna TALIB Insurance:[place] [id number] Ville [id number]: (330) OPolicy Number: Repository [phone] () [id number] Date:6142-42-33AJ [facility] [address] [address]MR: 09/07/2018 Secondary NOT GIVENUNK Sussy Insurance:SELF PAY [facility] Number: Effective Repository Date:2018-09-07 09/07/2018 VEE A [id number] Primary VEE A LANCEDOB: Sussy TALIB Insurance:[place] [id number] Ville [id number]: (330) OPolicy Number: Repository [phone] () [id number] Date:6388-35-82CM [address] [place] [address]CL: 09/07/2018 Secondary NOT GIVENUNK Sussy Insurance:SELF PAY [facility] Number: Effective Repository Date:2018-09-07 05/01/2018 Veelacho Hyatt667 Primary VEE A LANCEDOB: [facility] Insurance:[place] [id number] [facility] [address]Uml: (330) OPolicy Number: Repository [phone] () [id number] Date:9749-73-37WT [address] [address]FZ: 05/01/2018 Secondary NOT GIVENUNK Donna Insurance:SELF PAY [facility] Number: Effective Repository Date:2018-05-01 01/24/2018 Veelacho Pedersene667 Primary VEE A LANCEDOB: Donna Talib Insurance:[place] [id number] Ville [id number]: (330) OPolicy Number: Repository [phone] () [id number] Date:9325-41-68TZ [address] [address]BS: 01/24/2018 Secondary NOT GIVENUNK Donna Insurance:SELF PAY [facility] Number: Effective Repository Date:2018-01-24 12/31/2017 Vee A [id number] Primary VEE A LANCEDOB: S[facility] Insurance:[place] [id number] [facility] [address]Wdz: (001) OPolicy Number: Repository [phone] () [id number] Date:0585-56-91WF [address] [address]TN: 12/31/2017 Secondary NOT GIVENUNK Sussy Insurance:SELF PAY [facility] Number: Effective Repository Date:2017-12-31 11/03/2017 Vee A [id number] Primary VEE A LANCEDOB: Sussy Talib Insurance:LENARD [id number] Clinic South Pointe [facility] [address]Rqe: (330) [facility] Number: Repository [phone] () [id number] Date:5742-02-94WB [address] [address]PG: 11/03/2017 Secondary NOT GIVENUNK Donna Insurance:SELF PAY [facility] Number: Effective Repository Date:2017-11-03 11/03/2017 Vee A [id number] Primary VEE A LANCEDOB: Donna Talib Insurance:[place] [id number] Clinic South Pointe Hospital [address]Uex: (330) [facility] Number: Repository [phone] () [id number] Date:2765-62-40DU [facility] [address] [address]MB: 11/03/2017 Secondary NOT GIVENUNK Donna Insurance:SELF PAY [facility] Number: Effective Repository Date:2017-11-03 10/26/2017 VEE A LANCEDOB: Primary VEE A LANCEDOB: [facility] [id number] Insurance:[facility] [id number], [place] Number: [id number]: 330 [id number] [phone] () Date: 10/26/2017 Vee A [id number] Primary VEE A LANCEDOB: Donna Talib Insurance:[place] [id number] Clinic South Pointe Hospital [address]Dzo: (379) [facility] Number: Repository [phone] () [id number] Date:9068-22-92RM [address] [address]QQ: 10/26/2017 Secondary NOT GIVENUNK Sussy Insurance:SELF PAY [facility] Number: Effective Repository Date:2017-10-26 10/26/2017 Vee A [id number] Primary VEE A LANCEDOB: [facility] Insurance:LENARD [id number] [facility] [address]Lgr: (330) OPolicy Number: Repository [phone] () [id number] Date:8113-25-27HX [address] [address]XJ: 10/26/2017 Secondary NOT GIVENUNK Sussy Insurance:SELF PAY [facility] Number: Effective Repository Date:2017-10-25 10/26/2017 Vee [id number] Primary VEE A LANCEDOB: [facility] Insurance:[place] [id number] [place] [id number]: (330) OPolicy Number: Repository [phone] () [id number] Date:4539-12-43PP [address] [address]FK: 10/26/2017 Secondary NOT GIVENUNK Sussy Insurance:SELF PAY [facility]: Effective Repository Date:2017-10-26 10/19/2017 Vee Winter [id number] Primary VEE Winter LANCEDOB: Sussy Talib Insurance:[place] [id number] [place] [id number]: (330) OPolicy Number: Repository [phone] () [id number] Date:6499-27-63DU [address] [address]JP: 10/19/2017 Secondary NOT GIVENUNK Donna Insurance:SELF PAY [facility] Number: Effective Repository Date:2017-10-19
== END 2018-10-09 14:13 | disposition home or self-care (01) ==
PROVIDERS: Emergency Provider Emergency Medicine; Family Provider Family Medicine; PCP Family Medicine
DX: R11.2 Nausea with vomiting, unspecified (principal); R19.7 Diarrhea, unspecified; R10.9 Unspecified abdominal pain
CPT/HCPCS: 74177; 80048; 80076; 81001; 83690; 85025; 96361; 96374; 99285; J7030; P9612; Q9967; A4216; J2405

== ENCOUNTER → 2019-02-26 09:59 | Outpatient (CLI) | payer MEDICARE, SELFPAY ==
[2019-02-26 12:03] LABS: Absolute Lymphocyte Count 1.91 X10^3/ul (0.83-4.51); Absolute Neutrophil Count 4.7 X10^3/uL (2.0-7.7); Basophil# 0.02 X10^3/uL; Basophil% 0.3 % (0-1); Eosinophil# 0.08 X10^3/uL; Eosinophils% 1.1 % (0-5); Hematocrit 35.1 % (37-47); Hemoglobin 11.5 g/dl (12.0-15.0); Lymphocyte # 1.91 X10^3/ul (4.0); Lymphocyte % 26.7 % (19-41); Mean Corp Hgb Conc 32.8 g/gl (32-36); Mean Corpuscular Hgb 29.4 pg (27.0-32.0); Mean Corpuscular Volume 89.8 fL (81-99); Mean Platelet Vol. 10.1 fl (6.2-12.0); Monocyte# 0.43 X10^3/uL; Neutrophil # 4.69 X10^3/uL (2.7-7.7); Neutrophil % 65.6 % (47-70); Platelet Count 230 K/mm3 (150-450); RBC Distribution Width CV 13.5 % (11.6-14.6); RBC Distribution Width SD 43.4 fl (35.1-43.9); Red Blood Count 3.91 M/mm3 (4.2-5.4); White Blood Count 7.2 K/mm3 (4.4-11.0)
[2019-02-26 12:04] LABS: POSITIVE COUNT NO; POSITIVE DIFFERENTIAL NO; POSITIVE MORPHOLOGY NO
[2019-02-26 13:03] LABS: ALB/GLOB Ratio 0.9 RATIO (0.9-2.4); AST(SGOT) 23 U/L (15-37); Alanine Aminotransfer ALT/SGPT 25 U/L (13-56); Albumin, Serum 3.3 g/dL (3.2-5.0); Alkaline Phosphatase 166 U/L (45-117); Anion Gap 11 (5-15); BUN 43 mg/dL (7-18); Calcium,Total 9.5 mg/dL (8.5-10.1); Chloride 100 mmol/L (98-107); Creatinine, Serum 1.79 mg/dL (0.55-1.02); EST Glomerular Filtration Rate 29 mL/min (>60); Est Glom Filt Rate - Afr Amer 35 mL/min (>60); Globulin 3.6 g/dL (2.2-4.2); Glucose 106 mg/dL (74-106); Potassium 4.4 mmol/L (3.5-5.1); Protein, Total 6.9 g/dL (6.4-8.2); Sodium Level 139 mmol/L (136-145)
== END ==
PROVIDERS: Family Provider Family Medicine; PCP Family Medicine; Referring Provider Family Medicine; Visit Provider Family Medicine
DX: R62.7 Adult failure to thrive (principal)
CPT/HCPCS: 36415; 80053; 85025

== ENCOUNTER 2019-03-23 09:23 | Emergency (ER) | payer MEDICARE, SELFPAY ==
[2019-03-23 09:24] VITALS: BP 129/75; PULSE 87; RESP 16; TEMP 36.8; O2SAT 95; BMI 24.0
--- NOTE | 2019-03-23 09:41 | RAD_ITS ---
STUDY: X-RAY CHEST REASON FOR EXAM: Female, 78 years old. Cough TECHNIQUE: PA and lateral views of the chest. COMPARISON: 09/09/2018 FINDINGS: Stable inflation of the lungs. Lungs are essentially clear. Again noted is markedly elevated right hemidiaphragm with multiple loops of bowel underneath. There is no demonstrated pleural abnormality. There is borderline cardiomegaly. Normal mediastinum and quinton. Normal visualized pulmonary arteries. Normal visualized aortic arch and descending thoracic aorta. Normal visualized thoracic spine. Normal visualized ribs, clavicles, and shoulders. There is no demonstrated abnormality of the visualized soft tissue structures of the upper abdomen. RAD/Chest PA and Lateral IMPRESSION: No acute cardiopulmonary disease Electronically Signed: Oren Monk DO at 10:58 EDT Tel , Service support ,
--- NOTE | 2019-03-23 09:44 | ED.VIS.GEN ---
History of Present Illness Chief Complaint: Dizziness Informant: Patient Onset: Weeks Context: Gradual Onset Narrative: Patient presents to the ED stating for week she has been experiencing leg swelling. She has told her PCP multiple times about this and she states that he was unconcerned. She does wear compression stockings up to her knees and states that when they are on, her leg swelling is alleviated. She feels as though the swelling is traveling up her legs and making it more difficult for her to place her stockings on. She denies any associated chest pain or shortness of breath. She states she is actually lost weight recently. She has no history of CHF, PR, or PE. She does take 20 mg of Lasix and 25 mg of spironolactone daily. Past Medical History - Allergies and Home Meds Allergies/Adverse Reactions: Allergies acetaminophen [From [place]] Adverse Reaction (Verified 03/23/19 09:26) Nausea hydrocodone [From [place]] Adverse Reaction (Verified 03/23/19 09:26) Nausea sulfamethoxazole [From Bactrim] Adverse Reaction (Verified 03/23/19 09:26) Nausea trimethoprim [From Bactrim] Adverse Reaction (Verified 03/23/19 09:26) Nausea Primary Care Physician: Jose L Valenzuela MD [Primary Care Provider] - Surgical History: appendectomy, cholecystectomy, herniorrhaphy, tonsillectomy, - - 06/22/15 left hip CRIF Smoking Status: Never smoker - Family History Maternal Family History: Reports: Cancer - age 55, colon Paternal Family History: Reports: Cancer - in metastatic prostate Offspring Family History: Reports: - - 2 children Review of Systems General: Denies: Chills, Fever, Sweats Eyes: Denies: Visual changes - bilaterally, Diplopia ENT: Denies: Rhinorrhea, Sore throat Cardiovascular: Denies: Chest pain, Palpitations Respiratory: Denies: Dyspnea, Cough, Dyspnea on exertion Gastrointestinal: Denies: Abdominal pain, Nausea, Vomiting, Diarrhea, Melena, Hematochezia Genitourinary: Denies: Dysuria, Hematuria, Frequency Musculoskeletal: Reports: Swelling. Denies: Back pain, Extremity Pain Skin: Denies: Rash, Wounds Neurological: Denies: Headache, Weakness, Numbness Physical Exam Vital Signs/Narrative: Vital Signs Temp Pulse Resp BP Pulse Ox 03/23/19 09:24 98.2 F 87 16 129/75 H 95 General: Well nourished, Well developed, No Acute Distress Head: Normocephalic, Atraumatic Eyes: Perrl, EOMI ENT: Moist mucous membranes, No rhinorrhea Neck: Supple, Nontender Cardiovascular: Regular rate, Regular rhythm, No murmurs Respiratory: No distress, CTA bilaterally, Chest nontender Abdomen: Soft, Nontender, Nondistended, Normal bowel sounds Back: Nontender, Normal Inspection Extremities: Nontender, - - 2+ pitting edema bilateral lower extremities. No significant erythema or warmth to palpation concerning for cellulitis. No palpable cords and negative Homans sign. No concern for DVT. Skin: Normal color, No rash Neurological: Alert, Oriented x3, Cranial nerves II-XII grossly intact, Normal Strength, Normal Sensation Psychological: Normal affect, Normal Mood Diagnostic/Tx/Re-eval - Medical Decision Making Patient presents to the ED with primary complaint of bilateral lower extremity swelling for the last several weeks. She denies any associated chest pain or shortness of breath. She does take 25 mg of spironolactone and 20 mg of Lasix daily prescribed by her PCP, who is aware of this edema. On physical exam, patient does have 2+ pitting edema to bilateral lower extremities with no evidence of secondary cellulitis. She appears well and nontoxic. CBC, BMP, urinalysis, and chest x-ray are negative for acute findings. I discussed with the patient and her signs at this time, her edema is most likely dependent edema. The will contact the patient's PCP tomorrow to arrange follow-up. They are educated on signs/symptoms to return to the ED. They are provided discharge instructions. They were agreeable to plan. See Dr. Aden's Attestation. Disposition: Home stable Impression: Dependent edema ED Disposition - Plan for ED Patient: Disposition: Home or Assisted Living Diagnosis: Edema Instructions: PERIPHERAL EDEMA, Bilateral Referrals: Jose L Valenzuela MD [Primary Care Provider] - Additional Instructions: Call your primary care provider tomorrow to arrange follow up.
[2019-03-23 10:00] VITALS: BP 117/69; PULSE 78; RESP 16; O2SAT 92
[2019-03-23 10:17] LABS: Absolute Lymphocyte Count 1.82 X10^3/ul (0.83-4.51); Absolute Neutrophil Count 4.4 X10^3/uL (2.0-7.7); Basophil# 0.03 X10^3/uL; Basophil% 0.4 % (0-1); Eosinophil# 0.11 X10^3/uL; Eosinophils% 1.6 % (0-5); Hematocrit 29.8 % (37-47); Hemoglobin 9.8 g/dl (12.0-15.0); Lymphocyte # 1.82 X10^3/ul (4.0); Lymphocyte % 26.9 % (19-41); Mean Corp Hgb Conc 32.9 g/gl (32-36); Mean Corpuscular Volume 91.1 fL (81-99); Mean Platelet Vol. 8.8 fl (6.2-12.0); Monocyte# 0.37 X10^3/uL; Monocyte% 5.5 % (0-10); Neutrophil # 4.42 X10^3/uL (2.7-7.7); Neutrophil % 65.5 % (47-70); Platelet Count 253 K/mm3 (150-450); RBC Distribution Width CV 14.5 % (11.6-14.6); RBC Distribution Width SD 48.7 fl (35.1-43.9); Red Blood Count 3.27 M/mm3 (4.2-5.4); White Blood Count 6.8 K/mm3 (4.4-11.0)
[2019-03-23 10:18] LABS: POSITIVE COUNT NO; POSITIVE DIFFERENTIAL NO; POSITIVE MORPHOLOGY NO
[2019-03-23 10:30] LABS: AST(SGOT) 18 U/L (15-37); Alanine Aminotransfer ALT/SGPT 15 U/L (13-56); Albumin, Serum 2.9 g/dL (3.2-5.0); Alkaline Phosphatase 125 U/L (45-117); Anion Gap 8 (5-15); BUN 21 mg/dL (7-18); BUN/Creat Ratio 14.6 RATIO (10-20); Bilirubin, Direct 0.16 mg/dL (0.00-0.30); Calcium,Total 8.5 mg/dL (8.5-10.1); Chloride 105 mmol/L (98-107); Creatinine, Serum 1.44 mg/dL (0.55-1.02); EST Glomerular Filtration Rate 37 mL/min (>60); Est Glom Filt Rate - Afr Amer 45 mL/min (>60); Estimated Creatinine Clearance 26.91 ml/min; Globulin 3.4 g/dL (2.2-4.2); Glucose 105 mg/dL (74-106); Potassium 3.4 mmol/L (3.5-5.1); Protein, Total 6.3 g/dL (6.4-8.2); Sodium Level 141 mmol/L (136-145)
[2019-03-23 11:10] VITALS: O2SAT 87
[2019-03-23 11:24] LABS: Bacteria 0 SEEN /hpf (None Seen); Mucous, Urine 0 SEEN /hpf (<or=2+); Red Blood Cells-Urine 0 SEEN /hpf (0-5); White Blood Cells 0 SEEN /hpf (0-5)
[2019-03-23 11:27] LABS: Color, Urine Yellow (Yellow); Glucose, Dipstick Normal (Normal); Ketone-Dipstick Negative (Negative); Leukocyte Esterase-Dipstick 25 /ul (Negative); Nitrite-Dipstick Negative (Negative); Occult Blood-Urine Negative /ul (Negative); Protein-Dipstick Negative (Negative); Urine Bilirubin Dipstick Negative (Negative); Urine Clarity Clear (Clear); Urine Urobilinogen Normal (Normal)
[2019-03-23 11:29] VITALS: O2SAT 94
[2019-03-23 11:34] LABS: Squamous Epithelial Cells - UA 0-5 SEEN /hpf (5-10)
[2019-03-23 12:15] VITALS: BP 112/67; PULSE 81; RESP 17; O2SAT 94
== END 2019-03-23 12:16 | disposition home or self-care (01) ==
PROVIDERS: Emergency Provider Physician Assistant; Family Provider Family Medicine; PCP Family Medicine
DX: R60.0 Localized edema (principal); R42 Dizziness and giddiness; Z79.899 Other long term (current) drug therapy
CPT/HCPCS: 71046; 80048; 80076; 81001; 85025; 87086; 99285; A4216

== ENCOUNTER 2019-04-14 10:38 | Inpatient (IN) | payer MEDICARE, SELFPAY ==
[2019-04-14] VITALS (15 sets, daily range): BP systolic 103–129; BP diastolic 60–74; PULSE 79–93; RESP 16–228; TEMP 36.6–37.3; O2SAT 93–98; BMI 24.4; BMI 24.0; BMI 24.1
--- NOTE | 2019-04-14 10:47 | EKG12_ITS ---
Test Reason : SOB Blood Pressure : / mmHG Vent. Rate : 087 BPM Atrial Rate : 087 BPM P-R Int : 158 ms QRS Dur : 086 ms QT Int : 380 ms P-R-T Axes : 044 -17 043 degrees QTc Int : 457 ms Normal sinus rhythm Low voltage QRS Borderline ECG Confirmed by NAVIN ARRIOLA, JUAN C ([id number]), city editor HAYDEN HORN ([id number]) on 04/16/2019 1:33:09 PM Referred By: Olvin Martinez Confirmed By:JUAN C HOLDEN MD
--- NOTE | 2019-04-14 10:53 | ED.VIS.GEN ---
History of Present Illness Chief Complaint: Shortness of Breath Narrative: 78-year-old female with a history of diaphragmatic hernia but no known history of asthma or COPD and not on home oxygen presents with productive cough that started gradually 3 days ago. It has been gradually getting worse. It is productive of yellow sputum. She has shortness of breath and her pulse ox imagery has been as low as 76% at home with ambulation. She denies recent hospitalization or sick contacts. No recent travel. She denies fever or chills but she does feel generally weak. Current severity of her symptoms is moderate. Capacity - Capacity Assessment Tool Can the patient make a choice & communicate that choice?: Yes Past Medical History - Allergies and Home Meds Allergies/Adverse Reactions: Allergies acetaminophen [From [place]] Adverse Reaction (Verified 04/14/19 10:39) Nausea hydrocodone [From [place]] Adverse Reaction (Verified 04/14/19 10:39) Nausea sulfamethoxazole [From Bactrim] Adverse Reaction (Verified 04/14/19 10:39) Nausea trimethoprim [From Bactrim] Adverse Reaction (Verified 04/14/19 10:39) Nausea Primary Care Physician: Jose L Valenzuela MD [Primary Care Provider] - Prior records reviewed: Yes Surgical History: appendectomy, cholecystectomy, herniorrhaphy, tonsillectomy, - - 06/22/15 left hip CRIF Smoking Status: Former smoker - Family History Maternal Family History: Reports: Cancer - age 55, colon Paternal Family History: Reports: Cancer - in metastatic prostate Offspring Family History: Reports: - - 2 children Review of Systems General: Reports: Malaise. Denies: Chills, Fever, Sweats Eyes: Denies: Visual changes - bilaterally, Diplopia ENT: Denies: Rhinorrhea, Sore throat Cardiovascular: Denies: Chest pain, Palpitations Respiratory: Reports: Dyspnea, Cough, Sputum. Denies: Dyspnea on exertion Gastrointestinal: Denies: Abdominal pain, Nausea, Vomiting, Diarrhea, Melena, Hematochezia Genitourinary: Denies: Dysuria, Hematuria, Frequency Musculoskeletal: Denies: Back pain, Extremity Pain Skin: Denies: Rash, Wounds Neurological: Denies: Headache, Weakness, Numbness Physical Exam Vital Signs/Narrative: Vital Signs Temp Pulse Resp BP Pulse Ox 04/14/19 10:39 99.0 F 93 17 126/70 H 93 General: - - Appears frail Head: Normocephalic, Atraumatic Eyes: Perrl ENT: Moist mucous membranes, No rhinorrhea Neck: Supple, Nontender Cardiovascular: Regular rate, Regular rhythm, No murmurs Respiratory: Decreased Air Movement Abdomen: Soft, Nontender Back: Nontender, Normal Inspection Extremities: Nontender, No edema Skin: Normal color, No rash Neurological: Alert, Oriented x3, Cranial nerves II-XII grossly intact, Normal Strength, Normal Sensation Psychological: Normal affect, Normal Mood Diagnostic/Tx/Re-eval - Medical Decision Making She was quite wheezing on exam. She was given several breathing treatments with only slight improvement. She is still requiring oxygen but is protecting her airway and does not appear to require BiPAP or intubation. Her cough is productive and she does not have pleuritic chest pain or clinical evidence of DVT to suggest pulmonary embolism. She does not have a leukocytosis and her chemistries are fairly unremarkable. No fever here either. Rest x-ray is surprisingly fairly unremarkable, no infiltrate. When she attempted to ambulate, her pulse oximetry dropped to 72% and she does not have oxygen at home. I therefore feel she meets criteria for full admission. I discussed the case with the hospitalist and we discussed the possibility of covering with antibiotics however, since she does not have a fever, a white blood cell count, or an infiltrate, he would prefer to hold off on antibiotics for now. She appears stable for admission to a non-ICU setting at this point. ED Disposition - Plan for ED Patient: Disposition: [facility] Diagnosis: Hypoxia, Lower respiratory infection Referrals: Jose L Valenzuela MD [Primary Care Provider] -
[2019-04-14] MEDS: Ipratropium/Albuterol Sulfate 3 ML AMPUL.NEB INHALATION ×4 (11:07→22:54)
[2019-04-14 11:08] LABS: Absolute Lymphocyte Count 1.74 X10^3/uL (0.83-4.51); Absolute Neutrophil Count 4.3 X10^3/uL (2.0-7.7); Basophil# 0.02 X10^3/uL; Basophil% 0.3 % (0-1); Eosinophil# 0.16 X10^3/uL; Eosinophils% 2.5 % (0-5); Hematocrit 37.2 % (37-47); Lymphocyte # 1.74 X10^3/ul (4.0); Lymphocyte % 26.8 % (19-41); Mean Corp Hgb Conc 32.3 g/dL (32-36); Mean Corpuscular Hgb 30.7 pg (27.0-32.0); Mean Corpuscular Volume 95.1 fL (81-99); Mean Platelet Vol. 8.6 fl (6.2-12.0); Monocyte% 4.6 % (0-10); NRBC Flagged by Analyzer 0 % (0-5); Neutrophil # 4.25 X10^3/uL (2.7-7.7); Neutrophil % 65.3 % (47-70); Platelet Count 243 K/mm3 (150-450); RBC Distribution Width SD 48.8 fl (35.1-43.9); Red Blood Count 3.91 M/mm3 (4.2-5.4); White Blood Count 6.5 K/mm3 (4.4-11.0)
[2019-04-14 11:19] LABS: Anion Gap 1 (5-15); BUN 18 mg/dL (7-18); BUN/Creat Ratio 16.1 RATIO (10-20); Calcium,Total 9.3 mg/dL (8.5-10.1); Chloride 100 mmol/L (98-107); Creatinine, Serum 1.12 mg/dL (0.55-1.02); EST Glomerular Filtration Rate 50 mL/min (>60); Est Glom Filt Rate - Afr Amer 60 mL/min (>60); Estimated Creatinine Clearance 33.14 ml/min; Glucose 114 mg/dL (74-106); Potassium 4.1 mmol/L (3.5-5.1); Sodium Level 134 mmol/L (136-145)
--- NOTE | 2019-04-14 11:51 | RAD_ITS ---
STUDY: X-RAY CHEST REASON FOR EXAM: Female, 78 years old. Cough, congestion TECHNIQUE: PA and lateral views of the chest. COMPARISON: 03/23/2019 FINDINGS: EKG leads overlie the chest Stable inflation of the lungs. Lungs are essentially clear. Again noted is markedly elevated right hemidiaphragm with multiple loops of bowel underneath. There is no demonstrated pleural abnormality. There is borderline cardiomegaly. Normal mediastinum and quinton. Normal visualized pulmonary arteries. Normal visualized aortic arch and descending thoracic aorta. Normal visualized thoracic spine. Normal visualized ribs, clavicles, and shoulders. There is no demonstrated abnormality of the visualized soft tissue structures of the upper abdomen. RAD/Chest PA and Lateral IMPRESSION: No interval change Electronically Signed: Sarath Washington MD at 12:15 EDT , Service support ,
[2019-04-14] MEDS: Albuterol 2.5 MG/3 ML VIAL.NEB. INHALATION ×2 (12:26)
--- NOTE | 2019-04-14 13:51 | NURSING ---
MED SURG JAYCEE SOB, HYPOXIA, COPD? EXAC
--- NOTE | 2019-04-14 14:51 | PCM.HP.STD ---
Problem List (1) Restless leg syndrome Status: Chronic (2) Insomnia Status: Chronic (3) Tinea corporis Status: Chronic (4) Lower respiratory infection Status: Acute (5) Diaphragmatic hernia Status: Chronic (6) Diabetes mellitus Status: Chronic (7) Coronary artery disease Status: Chronic (8) Obesity Status: Chronic (9) GERD (gastroesophageal reflux disease) Status: Chronic (10) Hx of appendectomy Status: Chronic (11) Benign essential HTN Status: Chronic (12) Depression Status: Chronic (13) HLD (hyperlipidemia) Status: Chronic (14) Overweight (BMI 25.0-29.9) Status: Chronic (15) CAD (coronary artery disease) Status: Chronic Qualifiers: Coronary Disease-Associated Artery/Lesion type: [place] artery [place] vs. transplanted heart: [place] heart Associated angina: without angina Qualified Code(s): I25.10 - Atherosclerotic heart disease of [place] coronary artery without angina pectoris (16) Diabetes mellitus, type II Status: Chronic (17) Hyponatremia Status: Chronic Comment: also has chronic mild hyponatremia (18) Traumatic closed nondisplaced fracture of neck of left femur Status: Chronic Qualifiers: Encounter type: sequela Qualified Code(s): S72.002S - Fracture of unspecified part of neck of left femur, sequela (19) Status post closed reduction with internal fixation Status: Chronic Comment: left femur 06/22, Dr Spears [facility] (20) Dyskinesia, tardive Status: Chronic (21) Status post total hip replacement, left Status: Inactive Comment: 08/03/15, failed concervative pinning, completed by Dr Spears [facility] (22) Confusion Status: Acute (23) Brain aneurysm Status: Chronic (24) Influenza Status: Resolved (25) Takotsubo syndrome Status: Resolved (26) Hypertension Status: Chronic (27) Diabetic neuropathy Status: Chronic Qualifiers: Diabetes mellitus type: type 2 Diabetes mellitus complication detail: with other neurological complication Qualified Code(s): E11.49 - Type 2 diabetes mellitus with other diabetic neurological complication (28) Hypoxia Status: Acute (29) Acute hypoxic respiratory insufficiency Status: Acute (30) Possible COPD exacerbation Status: Acute History of Present Illness Date of Admission: 04/14/19 Chief Complaint: Shortness of breath for 1 to 2 weeks The patient is a 78 year old F with multiple comorbidities as listed above came to ED with progressive worsening of shortness of breath for 1 to 2 weeks but mainly for last 3 days along with cough, wheezing and respiratory distress. Patient had chills but denied any fever. Patient also had one-time clearing sputum but denies hemoptysis. Patient denies chest pain. In ED, she was found hypoxic 98% on 3 L of oxygen, respiratory rate 20 but no fever, tachycardia or hypotension. Chest x-ray shows chronic features of marked elevation of right hemidiaphragm with multiple loops of bowel consistent with prior diagnosis of diaphragmatic hernia. Stable inflammation of lungs but no specific infiltrate or pneumonic consolidation. Clinical Impression(s) from Imaging Studies Chest X-Ray 04/14/19 11:51 IMPRESSION: No interval change Laboratory Results 04/14/19 11:00: WBC 6.5, RBC 3.91 L, Hgb 12.0, Hct 37.2, MCV 95.1, MCH 30.7, MCHC 32.3, RDW Std Deviation 48.8 H, RDW Coeff of Dang 14.0, Plt Count 243, MPV 8.6, Immature Gran % (Auto) 0.500, Neut % (Auto) 65.3, Lymph % (Auto) 26.8, Emanuel % (Auto) 4.6, Eos % (Auto) 2.5, Baso % (Auto) 0.3, Absolute Neuts (auto) 4.3, Absolute Lymphs (auto) 1.74, Absolute Nucleated RBC 0.00, Nucleated RBC % 0 04/14/19 11:00: Sodium 134 L, Potassium 4.1, Chloride 100, Carbon Dioxide 33.0 H, Anion Gap 1 L, BUN 18, Creatinine 1.12 H, Estim Creat Clear Calc 33.14, Est GFR (MDRD) Af Amer 60, Est GFR (MDRD) Non-Af 50 L, BUN/Creatinine Ratio 16.1, Glucose 114 H, Calcium 9.3 Past Medical History Past Medical History (Chronic Problems): Chronic Problems Restless leg syndrome (Chronic) Insomnia (Chronic) Tinea corporis (Chronic) Diaphragmatic hernia (Chronic) Diabetes mellitus (Chronic) Coronary artery disease (Chronic) Obesity (Chronic) GERD (gastroesophageal reflux disease) (Chronic) Hx of appendectomy (Chronic) Benign essential HTN (Chronic) Depression (Chronic) HLD (hyperlipidemia) (Chronic) Overweight (BMI 25.0-29.9) (Chronic) CAD (coronary artery disease) (Chronic) Diabetes mellitus, type II (Chronic) Hyponatremia (Chronic) also has chronic mild hyponatremia Traumatic closed nondisplaced fracture of neck of left femur (Chronic) Status post closed reduction with internal fixation (Chronic) left femur 06/22, Dr Spears, [facility] Tinea unguium (Chronic) Dyskinesia, tardive (Chronic) Brain aneurysm (Chronic) Hypertension (Chronic) Diabetic neuropathy (Chronic) Allergies acetaminophen [From [place]] Adverse Reaction (Verified 04/14/19 10:39) Nausea hydrocodone [From [place]] Adverse Reaction (Verified 04/14/19 10:39) Nausea sulfamethoxazole [From Bactrim] Adverse Reaction (Verified 04/14/19 10:39) Nausea trimethoprim [From Bactrim] Adverse Reaction (Verified 04/14/19 10:39) Nausea Home Medications: Ambulatory Orders Medication Instructions Recorded Clonidine HCl [Catapres] 0.5 tab PO BID 03/23/19 Dicyclomine HCl 20 mg PO PRN PRN 03/23/19 Doxepin HCl [Sinequan] 25 mg PO PRN PRN 03/23/19 Fluoxetine HCl [Prozac] 3 tab PO DAILY 03/23/19 Furosemide [Lasix] 20 mg PO DAILY 03/23/19 Lorazepam [Ativan] 1 mg PO BID 03/23/19 Losartan Potassium [Cozaar] 50 mg PO QHS 03/23/19 Minoxidil [Loniten] 2.5 mg PO BID 03/23/19 Mirtazapine [Remeron] 15 mg PO QHS 03/23/19 Oxybutynin [Ditropan] 5 mg PO BID 03/23/19 Pantoprazole Sodium 20 mg PO QHS 03/23/19 Pramipexole Di-HCl [Pramipexole 0.75 mg PO QHS 03/23/19 Dihydrochloride] Promethazine HCl 25 mg PO PRN PRN 03/23/19 Simvastatin [Zocor] 40 mg PO QHS 03/23/19 Spironolactone [Aldactone] 25 mg PO DAILY 03/23/19 Surgical History: appendectomy, cholecystectomy, herniorrhaphy, tonsillectomy, - - 06/22/15 left hip CRIF Psychiatric History: Anxiety, Depression 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 Paternal History Items: Cancer - Father with prostate cancer. Offspring History Items: - - 2 children Review of Systems Constitutional: Reports: Chills. Denies: Fever, Weight Change HEENT: Denies: Head Aches, Sinus Congestion, Sinus Drainage Cardiovascular: Reports: Edema. Denies: Chest Pain, Palpitations Respiratory: Reports: Cough, Shortness of Breath, Shortness of breath at rest, Shortness of breath upon exertion, Sputum production, Wheezing Gastrointestinal: Denies: Abdominal Pain, Nausea, Vomiting Genitourinary: Denies: Dysuria, Frequency, Urgency Musculoskeletal: Reports: Joint Pain. Denies: Joint Tenderness Skin: Denies: Rash, Wounds Neurological: Denies: Focal weakness, Numbness, Tingling Psychiatric: Denies: Anxiety, Depression, Homicidal Ideations, Suicidal Ideations Hematologic/ Lymphatic: Denies: Easy Bruising, Easy Bleeding VTE Information - Inpt Only VTE Present on Admission: No VTE Mechan Device Prophylaxis: None VTE Pharm Prophylaxis ordered?: Yes Patient Problems: Active and Suspected Problems Lower respiratory infection (Acute) Acute hypoxic respiratory insufficiency (Acute) Possible COPD exacerbation (Acute) Hypoxia (Acute) - Physical Exam General: Alert, Oriented x3, Cooperative HEENT: Atraumatic, PERRLA, EOMI, Normocephalic Neck: Supple, No JVD, Negative Carotid Bruits Lungs: Diminished - Air entry is diminished more on the right lower base, Rhonchi, Short of Breath, Using Accessory Muscles, Wheezes Cardiovascular: Regular rate, Regular Rhythm, Normal S1, Normal S2, No murmurs Abdomen: Bowel Sounds Present, Soft, Non Tender, Non-Distended Extremities: Capillary Refill Less than 3 Seconds, Edema - Bilateral pedal edema Skin: No rashes, No breakdown Musculoskeletal: No Tenderness to Palpation of Joints or Extremities, Arthritic Changes Neurological: Cranial nerves II-XII grossly intact, Deep Tendon Reflexes 2+/4 and Symmetrical, Neuro grossly intact Psych/Mental Status: Normal Affect, Appropriate Vital Signs Temp Pulse Resp BP Pulse Ox 99.1 F 84 20 H 124/74 H 96 04/14/19 11:01 04/14/19 14:15 04/14/19 14:15 04/14/19 14:15 04/14/19 14:15 Oxygen Flow Rate (L/min) 3 Oxygen Delivery Method Room Air Weight: 138 lb 0.15 oz Body Mass Index (BMI) 24.4 Finger Stick Blood Glucose 176 Laboratory Tests Past 24 Hrs 04/14/19 04/14/19 11:00 11:00 WBC 6.5 RBC 3.91 L Hgb 12.0 Hct 37.2 MCV 95.1 MCH 30.7 MCHC 32.3 RDW Std Deviation 48.8 H RDW Coeff of Dang 14.0 Plt Count 243 MPV 8.6 Immature Gran % (Auto) 0.500 Neut % (Auto) 65.3 Lymph % (Auto) 26.8 Emanuel % (Auto) 4.6 Eos % (Auto) 2.5 Baso % (Auto) 0.3 Absolute Neuts (auto) 4.3 Absolute Lymphs (auto) 1.74 Absolute Nucleated RBC 0.00 Nucleated RBC % 0 Sodium 134 L Potassium 4.1 Chloride 100 Carbon Dioxide 33.0 H Anion Gap 1 L BUN 18 Creatinine 1.12 H Estim Creat Clear Calc 33.14 Est GFR (MDRD) Af Amer 60 Est GFR (MDRD) Non-Af 50 L BUN/Creatinine Ratio 16.1 Glucose 114 H Calcium 9.3 Assessment/Plan All Active Problems Encephalopathy (Acute) UTI (urinary tract infection) (Acute) Lower respiratory infection (Acute) Acute hypoxic respiratory insufficiency (Acute) Possible COPD exacerbation (Acute) Confusion (Acute) Influenza (Resolved) Takotsubo syndrome (Resolved) Gastroenteritis (Resolved) Hypoxia (Acute) Generalized weakness (Acute) Abdominal pain (Resolved) Diarrhea (Resolved) The patient is a 78 year old F with multiple comorbidities as listed above came to ED with progressive worsening of shortness of breath for 1 to 2 weeks but mainly for last 3 days along with cough, wheezing and respiratory distress. Patient had chills but denied any fever. Patient also had one-time clearing sputum but denies hemoptysis. Patient denies chest pain. In ED, she was found hypoxic 98% on 3 L of oxygen, respiratory rate 20 but no fever, tachycardia or hypotension. Chest x-ray shows chronic features of marked elevation of right hemidiaphragm with multiple loops of bowel consistent with prior diagnosis of diaphragmatic hernia. Stable inflammation of lungs but no specific infiltrate or pneumonic consolidation. 1. Acute respiratory hypoxic insufficiency most probably secondary to undiagnosed COPD exacerbation: Patient is being admitted on PCU. Oxygen therapy as per protocol. Patient denies previous diagnosis of COPD but had PFT many years ago but there is no record in our system. Started empirically on bronchodilator every 4 hourly, albuterol as needed, incentive spirometry, chest physiotherapy, IV Zithromax, and BiPAP support if needed. Sputum culture, urinary antigens, respiratory panel ordered. 2. Right lower lobe atelectasis/postop secondary to large diaphragmatic hernia: Patient was being evaluated by surgeon in the past in [place] was told the surgery is not necessary at that time. Will need further follow-up as an outpatient. 3. Cardiac issues: Coronary artery disease, Takatsubo CMP: Patient also has bilateral leg edema and is on spironolactone, losartan, Lasix. BNP and 2D echo is ordered to rule out heart failure although she denies any history of heart failure. one Troponin is ordered. EKG shows normal sinus rhythm at 87 bpm with low voltage QRS complex. QTc 457 ms. The patient previous echo in September 2017 reported as a stage I diastolic dysfunction, EF 75%. Mildly dilated RV with normal systolic function. Mild TR, RVSP 48 mm necessity of moderate pulmonary hypertension. Mild diffuse aortic valve thickening with trivial AI. Mitral valve normal 4. Other comorbidities include chronic urinary incontinence, anxiety and depression, GERD and hypertension: Home medications reconciliation done. DVT prophylaxis: On Lovenox 40 mg subcu daily. Advanced directive/living will: Patient has living will. Her son, Mr. Kalia Garg is power of litigation attorney associate for health. Out of all options given including full code, DNR CC arrest and DNR CC patient and her son opted for full code. They want all resuscitative measures including CPR, intubation, vent support, vasopressors and tube feeding. Total time spent in [id number] encounter in discussion of advanced directive 18 minutes. Clinical Impression(s) from Imaging Studies Chest X-Ray 04/14/19 11:51 IMPRESSION: No interval change Laboratory Results 04/14/19 11:00: WBC 6.5, RBC 3.91 L, Hgb 12.0, Hct 37.2, MCV 95.1, MCH 30.7, MCHC 32.3, RDW Std Deviation 48.8 H, RDW Coeff of Dang 14.0, Plt Count 243, MPV 8.6, Immature Gran % (Auto) 0.500, Neut % (Auto) 65.3, Lymph % (Auto) 26.8, Emanuel % (Auto) 4.6, Eos % (Auto) 2.5, Baso % (Auto) 0.3, Absolute Neuts (auto) 4.3, Absolute Lymphs (auto) 1.74, Absolute Nucleated RBC 0.00, Nucleated RBC % 0 04/14/19 11:00: Sodium 134 L, Potassium 4.1, Chloride 100, Carbon Dioxide 33.0 H, Anion Gap 1 L, BUN 18, Creatinine 1.12 H, Estim Creat Clear Calc 33.14, Est GFR (MDRD) Af Amer 60, Est GFR (MDRD) Non-Af 50 L, BUN/Creatinine Ratio 16.1, Glucose 114 H, Calcium 9.3 Code Visit Inpatient E&M: 20292 Init Hosp L3 Procedures: 54352 Advncd Care Plan 30 Min
[2019-04-14] MEDS: 0.9% Normal Saline 1,000 ML 100 ML IV (16:26)
[2019-04-14 16:35] LABS: Bedside Glucose 109 mg/dL (70-110)
[2019-04-14] MEDS: guaiFENesin 1,200 MG Tablet 1200 MG PO (22:13)
[2019-04-14] MEDS: Mirtazapine 15 MG Tablet PO (22:13)
[2019-04-14] MEDS: Pantoprazole Sodium 20 MG Tablet PO (22:14)
[2019-04-14] MEDS: Atorvastatin Calcium 20 MG Tablet PO (22:14)
[2019-04-14] MEDS: Minoxidil 2.5 MG Tablet PO (22:14)
[2019-04-14] MEDS: Losartan Potassium 50 MG Tablet PO (22:15)
[2019-04-14] MEDS: cloNIDine HCl 0.1 MG Tablet 0.05 MG PO (22:17)
[2019-04-14] MEDS: Oxybutynin 5 MG Tablet PO (22:17)
[2019-04-14] MEDS: Doxepin Hcl 25 MG Capsule PO (22:29)
[2019-04-14] MEDS: LORazepam 1 MG Tablet PO (22:29)
[2019-04-14 22:55] LABS: Bedside Glucose 113 mg/dL (70-110)
[2019-04-14] MEDS: 0.9% NaCl Peripheral Flush Adult/Peds IV (23:04)
[2019-04-15] VITALS (15 sets, daily range): BP systolic 112–137; BP diastolic 62–77; PULSE 87–98; RESP 16–24; TEMP 36.8–37.3; O2SAT 92–97
[2019-04-15] MEDS: Ipratropium/Albuterol Sulfate 3 ML AMPUL.NEB INHALATION ×6 (03:16→23:35)
[2019-04-15] MEDS: 0.9% NaCl Peripheral Flush Adult/Peds IV ×2 (06:47→13:52)
[2019-04-15 07:35] LABS: Anion Gap 1 (5-15); BUN 13 mg/dL (7-18); BUN/Creat Ratio 13.9 RATIO (10-20); Calcium,Total 8.6 mg/dL (8.5-10.1); Chloride 104 mmol/L (98-107); Creatinine, Serum 0.93 mg/dL (0.55-1.02); EST Glomerular Filtration Rate 61 mL/min (>60); Est Glom Filt Rate - Afr Amer 74 mL/min (>60); Estimated Creatinine Clearance 39.91 ml/min; Glucose 129 mg/dL (74-106); Potassium 4.3 mmol/L (3.5-5.1); Sodium Level 137 mmol/L (136-145); Thyroid Stim Hormone (TSH) 0.66 uIU/mL (0.358-3.74)
[2019-04-15 07:41] LABS: Bedside Glucose 125 mg/dL (70-110)
[2019-04-15] MEDS: Spironolactone 25 MG Tablet PO (10:10)
[2019-04-15] MEDS: guaiFENesin 1,200 MG Tablet 1200 MG PO ×2 (10:11→21:18)
[2019-04-15] MEDS: cloNIDine HCl 0.1 MG Tablet 0.05 MG PO ×2 (10:11→21:18)
[2019-04-15] MEDS: Minoxidil 2.5 MG Tablet PO ×2 (10:11→21:18)
[2019-04-15] MEDS: FLUoxetine 20 MG Capsule 40 MG PO (10:11)
[2019-04-15] MEDS: Furosemide 40 MG Tablet PO (10:11)
[2019-04-15] MEDS: Oxybutynin 5 MG Tablet PO ×2 (10:11→21:18)
[2019-04-15] MEDS: Glucerna Shake 120 ML LIQUID PO ×3 (10:15→17:50)
[2019-04-15] MEDS: LORazepam 1 MG Tablet PO ×2 (10:15→21:18)
[2019-04-15 11:25] LABS: Bedside Glucose 195 mg/dL (70-110)
--- NOTE | 2019-04-15 11:35 | CASEMGMT ---
RN CM Assessment Presentation: COPD exacerbation. Cough, shortness of breath, wheezing and resp distress. Intro role of CM and purpose of RN CM assessment to patient in room. Pt is awake, alert and able to participate in assessment. Demographics, PCP and Pharmacy verified. Pt states she lives independently, cares for self at home. PCP: Dr. Valenzuela Specialists: Pt states she has seen Dr. Dumont in the past, not active with cardiology or pulmonology now. Preferred Pharmacy: [facility] Insurance: [employer] Prescription Benefit: yes LNOK: Kalia Garg, son Living Arrangements: Lives independently in one story home. Pt states she generally uses walker for ambulation around home, and cane outside home. Is independent with ADLs however states she bathes at sink mostly. Pt does admit to having more difficulty completing home tasks since dc from TCU. Family can assist if needed. Pt states she makes her own meals and dri ves to shopping/physician visits. Transportation: Pt drives, family can assist if needed. DME: cane, walker, nebulizer, raised toilet seat, shower chair. Denies oxygen use at home HHC: [facility] in past. No current Home health, however pt is agreeable to [facility] if recommended. Patient DC goals: Home DC PLAN: Home, will evaluate for HHS needs. PT/OT evaluations pending. Urvashi NUGENT RN ACM
[2019-04-15] MEDS: Insulin Lispro 100 UNIT/ML INSULN.PEN SC ×2 (12:31→17:49)
[2019-04-15 16:56] LABS: Bedside Glucose 173 mg/dL (70-110)
--- NOTE | 2019-04-15 18:11 | PCM.PROGNOTE ---
Patient Problems: Active and Suspected Problems Lower respiratory infection (Acute) Acute hypoxic respiratory insufficiency (Acute) Hypoxia (Acute) Subjective: Patient was seen and examined today, she is still complaining of cough and shortness of breath on exertion. Patient is still requiring 3 L of supplemental oxygen by nasal cannula to maintain her pulse ox. Patient's respiratory panel came back positive for parainfluenza virus, I stopped her Zithromax today. - Physical Exam General: Alert, Oriented x3, Cooperative, No apparent distress, Well developed HEENT: Atraumatic, PERRLA, EOMI, Normocephalic Oral: Moist Mucosa Neck: Supple, No JVD, Negative Carotid Bruits, Trachea Midline, Thyroid Normal Size and Texture Lungs: Normal air movement, No rhonchi, No rales, Wheezes - Marked expiratory wheezes bilaterally Cardiovascular: Regular rate, Regular Rhythm, Normal S1, Normal S2, No murmurs, PMI Normal Abdomen: Bowel Sounds Present, Soft, Non Tender, Non-Distended, No hernias noted Extremities: No clubbing, No cyanosis, No edema, Capillary Refill Less than 3 Seconds Skin: No rashes, No breakdown Musculoskeletal: No Tenderness to Palpation of Joints or Extremities Neurological: Cranial nerves II-XII grossly intact, Neuro grossly intact, Sensory exam intact to light touch and pain, Coordination normal Psych/Mental Status: Normal Affect, Appropriate, Alert and oriented to time, place, person, mood and affect Vital Signs Temp Pulse Resp BP Pulse Ox 98.8 F 97 20 H 118/69 97 04/15/19 15:58 04/15/19 15:58 04/15/19 15:58 04/15/19 15:58 04/15/19 15:58 Oxygen Flow Rate (L/min) 3 Oxygen Delivery Method Nasal Cannula Weight: 61.6 kg Body Mass Index (BMI) 24.0 Finger Stick Blood Glucose 176 Intake and Output for Last 24 Hours 04/13/19 04/14/19 04/15/19 23:59 23:59 23:59 Intake Total 1255 / 1255 686 / 686 Output Total 250 / 250 200 / 200 Balance 1005 / 1005 486 / 486 Microbiology Past 72 Hours 04/14/19 15:33 Respiratory Panel (PCR) - Final Mucosa - Nasopharyngeal Parainfluenza 4 04/15/19 00:35 Streptococcus pneumoniae Antigen (M - Final Urine, Clean Catch 04/15/19 00:35 Legionella Antigen - Final Urine, Clean Catch Laboratory Tests Past 24 Hrs 04/15/19 06:25 Sodium 137 Potassium 4.3 Chloride 104 Carbon Dioxide 32.0 Anion Gap 1 L BUN 13 Creatinine 0.93 Estim Creat Clear Calc 39.91 Est GFR (MDRD) Af Amer 74 Est GFR (MDRD) Non-Af 61 BUN/Creatinine Ratio 13.9 Glucose 129 H Calcium 8.6 Magnesium 2.0 TSH 0.66 POC Glucose 04/15/19 04/15/19 04/15/19 16:41 11:17 06:55 POC Glucose 173 H 195 H 125 H 04/14/19 22:33 POC Glucose 113 H Medical Necessity - Tobacco Use Smoking Status: Former smoker Tobacco Use: Cigarettes Assessment/Plan All Active Problems Encephalopathy (Resolved) UTI (urinary tract infection) (Resolved) Lower respiratory infection (Acute) Acute hypoxic respiratory insufficiency (Acute) Possible COPD exacerbation (Ruled-out) Confusion (Resolved) Influenza (Resolved) Takotsubo syndrome (Resolved) Gastroenteritis (Resolved) Hypoxia (Acute) Generalized weakness (Resolved) Abdominal pain (Resolved) Diarrhea (Resolved) #1 acute bronchospasm secondary to acute parainfluenza virus infection-continue IV corticosteroids, antibiotics were stopped, continue aerosol treatments #2 acute hypoxia secondary to #1-oxygen will be weaned if possible #3 coronary artery disease #4 essential hypertension #5 type 2 diabetes Code Visit Inpatient E&M: 91055 Subs Hosp L2
[2019-04-15] MEDS: Pantoprazole Sodium 20 MG Tablet PO (21:18)
[2019-04-15] MEDS: Mirtazapine 15 MG Tablet PO (21:18)
[2019-04-15] MEDS: Atorvastatin Calcium 20 MG Tablet PO (21:18)
[2019-04-15] MEDS: Losartan Potassium 50 MG Tablet PO (21:18)
[2019-04-15 21:50] LABS: Bedside Glucose 143 mg/dL (70-110)
[2019-04-16] VITALS (19 sets, daily range): BP systolic 118–128; BP diastolic 64–79; PULSE 76–92; RESP 15–24; TEMP 36.7–37; O2SAT 94–97
[2019-04-16] MEDS: Ipratropium/Albuterol Sulfate 3 ML AMPUL.NEB INHALATION ×6 (03:08→23:30)
[2019-04-16] MEDS: 0.9% NaCl Peripheral Flush Adult/Peds IV ×3 (06:20→20:43)
[2019-04-16 06:55] LABS: Bedside Glucose 132 mg/dL (70-110)
[2019-04-16] MEDS: cloNIDine HCl 0.1 MG Tablet 0.05 MG PO ×2 (09:18→20:44)
[2019-04-16] MEDS: guaiFENesin 1,200 MG Tablet 1200 MG PO ×2 (09:18→20:44)
[2019-04-16] MEDS: Glucerna Shake 120 ML LIQUID PO ×3 (09:18→16:57)
[2019-04-16] MEDS: FLUoxetine 20 MG Capsule 40 MG PO (09:18)
[2019-04-16] MEDS: Oxybutynin 5 MG Tablet PO ×2 (09:18→20:44)
[2019-04-16] MEDS: Minoxidil 2.5 MG Tablet PO ×2 (09:18→20:44)
[2019-04-16] MEDS: Furosemide 40 MG Tablet PO (09:18)
[2019-04-16] MEDS: Spironolactone 25 MG Tablet PO (09:19)
[2019-04-16] MEDS: LORazepam 1 MG Tablet PO ×2 (09:19→20:44)
--- NOTE | 2019-04-16 09:23 | CASEMGMT ---
SW spoke with patient about discharge plan. She reported to the P[employer]urizer Helper she wants to go home with home health. However, PT suggested she may need SNF at discharge. SW asked patient what she thought about this and she said she would go to TCU. SW told her they are full right now, but SW could put her name on the TCU list. SW asked her if there were any other facilities she would consider going to. She said the Pasteurizer Helper told her she could have home health. SW told her that is true as long as she feels safe going home alone. SW told her to think about it and SW will check back with her. Bridgette NESS MSW
--- NOTE | 2019-04-16 10:29 | CASEMGMT ---
Patient has a Healthcare POA on file at [facility]. She does not have a Healthcare LW. Bridgette NESS MSW
[2019-04-16] MEDS: Insulin Lispro 100 UNIT/ML INSULN.PEN SC ×2 (11:40→20:44)
[2019-04-16 11:51] LABS: Bedside Glucose 153 mg/dL (70-110)
[2019-04-16 16:46] LABS: Bedside Glucose 145 mg/dL (70-110)
--- NOTE | 2019-04-16 17:36 | PCM.PROGNOTE ---
Patient Problems: Active and Suspected Problems Lower respiratory infection (Acute) Acute hypoxic respiratory insufficiency (Acute) Hypoxia (Acute) Subjective: Patient was seen and examined today, her son was in the room and I talked with him about her care. Patient still requiring supplemental O2 at 2 L/min. Patient does not complain of any chest pain, fever, or chills. - Physical Exam General: Alert, Oriented x3, Cooperative, No apparent distress, Well developed HEENT: Atraumatic, PERRLA, EOMI, Normocephalic Oral: Moist Mucosa Neck: Supple, Trachea Midline, Thyroid Normal Size and Texture Lungs: Normal air movement, Wheezes - Expiratory wheezes bilaterally Cardiovascular: Regular rate, Regular Rhythm, Normal S1, Normal S2, No murmurs, PMI Normal, No rub noted Abdomen: Bowel Sounds Present, Soft, Non Tender, Non-Distended, No hernias noted Extremities: No clubbing, No cyanosis, No edema, Capillary Refill Less than 3 Seconds Skin: No rashes, No breakdown Musculoskeletal: No Tenderness to Palpation of Joints or Extremities Neurological: Cranial nerves II-XII grossly intact, Motor Exam 5/5 strength throughout, Sensory exam intact to light touch and pain Psych/Mental Status: Normal Affect, Appropriate, Alert and oriented to time, place, person, mood and affect Vital Signs Temp Pulse Resp BP Pulse Ox 98.6 F 92 15 118/64 95 04/16/19 15:10 04/16/19 15:10 04/16/19 15:10 04/16/19 15:10 04/16/19 15:10 Oxygen Flow Rate (L/min) 2 Oxygen Delivery Method Nasal Cannula Weight: 61.6 kg Body Mass Index (BMI) 24.0 Finger Stick Blood Glucose 176 Intake and Output for Last 24 Hours 04/14/19 04/15/19 04/16/19 23:59 23:59 23:59 Intake Total 1255 / 1255 926 / 926 1600 / 1600 Output Total 250 / 250 1450 / 1450 1300 / 1300 Balance 1005 / 1005 -524 / -524 300 / 300 Microbiology Past 72 Hours 04/14/19 15:33 Respiratory Panel (PCR) - Final Mucosa - Nasopharyngeal Parainfluenza 4 04/15/19 00:35 Streptococcus pneumoniae Antigen (M - Final Urine, Clean Catch 04/15/19 00:35 Legionella Antigen - Final Urine, Clean Catch POC Glucose 04/16/19 04/16/19 04/16/19 16:37 11:37 06:44 POC Glucose 145 H 153 H 132 H 04/15/19 21:27 POC Glucose 143 H Medical Necessity - Tobacco Use Smoking Status: Former smoker Tobacco Use: Cigarettes Assessment/Plan All Active Problems Encephalopathy (Resolved) UTI (urinary tract infection) (Resolved) Lower respiratory infection (Acute) Acute hypoxic respiratory insufficiency (Acute) Possible COPD exacerbation (Ruled-out) Confusion (Resolved) Influenza (Resolved) Takotsubo syndrome (Resolved) Gastroenteritis (Resolved) Hypoxia (Acute) Generalized weakness (Resolved) Abdominal pain (Resolved) Diarrhea (Resolved) #1 acute bronchospasm secondary to acute parainfluenza virus infection-continue IV corticosteroids, continue aerosol treatments #2 acute hypoxia secondary to #1-oxygen will be weaned if possible #3 coronary artery disease #4 essential hypertension #5 type 2 diabetes Code Visit Inpatient E&M: 06178 Subs Hosp L2
[2019-04-16] MEDS: Pantoprazole Sodium 20 MG Tablet PO (20:44)
[2019-04-16] MEDS: Atorvastatin Calcium 20 MG Tablet PO (20:44)
[2019-04-16] MEDS: Losartan Potassium 50 MG Tablet PO (20:44)
[2019-04-16] MEDS: Mirtazapine 15 MG Tablet PO (20:44)
[2019-04-16 22:26] LABS: Bedside Glucose 155 mg/dL (70-110)
[2019-04-16] MEDS: MELATONIN 3 MG TABLET PO (23:48)
[2019-04-16] MEDS: Doxepin Hcl 25 MG Capsule PO (23:48)
[2019-04-17] VITALS (18 sets, daily range): BP systolic 94–123; BP diastolic 50–72; PULSE 79–99; RESP 16–20; TEMP 36.6–36.9; O2SAT 93–98
[2019-04-17] MEDS: Ipratropium/Albuterol Sulfate 3 ML AMPUL.NEB INHALATION ×6 (02:56→23:12)
[2019-04-17] MEDS: 0.9% NaCl Peripheral Flush Adult/Peds IV ×2 (06:33→14:07)
[2019-04-17 06:51] LABS: Bedside Glucose 135 mg/dL (70-110)
[2019-04-17] MEDS: Glucerna Shake 120 ML LIQUID PO ×4 (07:22→21:47)
[2019-04-17] MEDS: guaiFENesin 1,200 MG Tablet 1200 MG PO ×2 (09:28→21:47)
[2019-04-17] MEDS: LORazepam 1 MG Tablet PO ×2 (09:28→21:47)
[2019-04-17] MEDS: FLUoxetine 20 MG Capsule 40 MG PO (09:28)
[2019-04-17] MEDS: cloNIDine HCl 0.1 MG Tablet 0.05 MG PO ×2 (09:29→21:47)
[2019-04-17] MEDS: Spironolactone 25 MG Tablet PO (09:30)
[2019-04-17] MEDS: Oxybutynin 5 MG Tablet PO ×2 (09:30→21:47)
[2019-04-17] MEDS: Minoxidil 2.5 MG Tablet PO ×2 (09:30→21:47)
[2019-04-17] MEDS: Furosemide 40 MG Tablet PO (09:30)
[2019-04-17] MEDS: Insulin Lispro 100 UNIT/ML INSULN.PEN SC (11:11)
[2019-04-17 11:15] LABS: Bedside Glucose 164 mg/dL (70-110)
[2019-04-17 16:36] LABS: Bedside Glucose 137 mg/dL (70-110)
--- NOTE | 2019-04-17 17:29 | PCM.PROGNOTE ---
Patient Problems: Active and Suspected Problems Lower respiratory infection (Acute) Acute hypoxic respiratory insufficiency (Acute) Hypoxia (Acute) Subjective: Patient was seen and examined today, she still having expiratory wheezes, patient states she is not coughing as much as yesterday, she denies any fevers or chills. Talk to the patient about going into a long-term facility short-term for rehab services at the time of discharge from the hospital, she is not interested in this and feels that she can go home. - Physical Exam General: Alert, Oriented x3, Cooperative, No apparent distress, Well developed HEENT: Atraumatic, PERRLA, EOMI, Normocephalic Oral: Moist Mucosa Neck: Supple, Trachea Midline, Thyroid Normal Size and Texture Lungs: Normal air movement, Wheezes - Expiratory wheezes bilaterally Cardiovascular: Regular rate, Regular Rhythm, Normal S1, Normal S2, No murmurs, PMI Normal, No rub noted Abdomen: Bowel Sounds Present, Soft, Non Tender, Non-Distended, No hernias noted Extremities: No clubbing, No cyanosis, No edema, Capillary Refill Less than 3 Seconds Skin: No rashes, No breakdown Musculoskeletal: No Tenderness to Palpation of Joints or Extremities Neurological: Cranial nerves II-XII grossly intact, Neuro grossly intact, Sensory exam intact to light touch and pain, Coordination normal Psych/Mental Status: Normal Affect, Appropriate, Alert and oriented to time, place, person, mood and affect Vital Signs Temp Pulse Resp BP Pulse Ox 97.9 F 88 18 98/56 L 98 04/17/19 15:19 04/17/19 15:19 04/17/19 15:19 04/17/19 15:19 04/17/19 15:19 Oxygen Flow Rate (L/min) 1.5 Oxygen Delivery Method Nasal Cannula Weight: 61.6 kg Body Mass Index (BMI) 24.0 Finger Stick Blood Glucose 176 Intake and Output for Last 24 Hours 04/15/19 04/16/19 04/17/19 23:59 23:59 23:59 Intake Total 926 / 926 2340 / 2340 360 / 360 Output Total 1450 / 1450 1500 / 1500 Balance -524 / -524 840 / 840 360 / 360 Microbiology Past 72 Hours 04/14/19 15:33 Respiratory Panel (PCR) - Final Mucosa - Nasopharyngeal Parainfluenza 4 04/15/19 00:35 Streptococcus pneumoniae Antigen (M - Final Urine, Clean Catch 04/15/19 00:35 Legionella Antigen - Final Urine, Clean Catch POC Glucose 04/17/19 04/17/19 04/17/19 16:26 11:08 06:32 POC Glucose 137 H 164 H 135 H 04/16/19 20:41 POC Glucose 155 H Medical Necessity - Tobacco Use Smoking Status: Former smoker Tobacco Use: Cigarettes Assessment/Plan All Active Problems Encephalopathy (Resolved) UTI (urinary tract infection) (Resolved) Lower respiratory infection (Acute) Acute hypoxic respiratory insufficiency (Acute) Possible COPD exacerbation (Ruled-out) Confusion (Resolved) Influenza (Resolved) Takotsubo syndrome (Resolved) Gastroenteritis (Resolved) Hypoxia (Acute) Generalized weakness (Resolved) Abdominal pain (Resolved) Diarrhea (Resolved) #1 acute bronchospasm secondary to acute parainfluenza virus infection-continue IV corticosteroids, continue aerosol treatments #2 acute hypoxia secondary to #1-oxygen will be weaned if possible #3 coronary artery disease #4 essential hypertension #5 type 2 diabetes Patient states she has an aerosol machine at home but denies any history of lung disease. Unsure why she has the aerosol machine. Code Visit Inpatient E&M: 54127 Subs Hosp L2
[2019-04-17] MEDS: Mirtazapine 15 MG Tablet PO (21:46)
[2019-04-17] MEDS: Pantoprazole Sodium 20 MG Tablet PO (21:46)
[2019-04-17] MEDS: Atorvastatin Calcium 20 MG Tablet PO (21:46)
[2019-04-17] MEDS: Doxepin Hcl 25 MG Capsule PO (21:47)
[2019-04-17] MEDS: Losartan Potassium 50 MG Tablet PO (21:48)
[2019-04-17 22:06] LABS: Bedside Glucose 141 mg/dL (70-110)
[2019-04-18] VITALS (8 sets, daily range): BP systolic 119–129; BP diastolic 62–72; PULSE 84–111; RESP 18–22; TEMP 36.6–37.1; O2SAT 90–98
[2019-04-18] MEDS: NYSTATIN 500,000 UNIT/5 ML UDC 500000 UNIT PO ×2 (03:01→09:12)
[2019-04-18] MEDS: BENZOCAINE/MENTHOL 1 LOZENGE MUCOUS MEM (03:03)
[2019-04-18] MEDS: 0.9% NaCl Peripheral Flush Adult/Peds IV ×2 (03:04→05:00)
[2019-04-18 06:55] LABS: Bedside Glucose 136 mg/dL (70-110)
[2019-04-18] MEDS: Ipratropium/Albuterol Sulfate 3 ML AMPUL.NEB INHALATION (07:19)
[2019-04-18] MEDS: Glucerna Shake 120 ML LIQUID PO (09:09)
[2019-04-18] MEDS: Psyllium 1 PACKET PO (09:10)
[2019-04-18] MEDS: LORazepam 1 MG Tablet PO (09:11)
[2019-04-18] MEDS: FLUoxetine 20 MG Capsule 40 MG PO (09:11)
[2019-04-18] MEDS: cloNIDine HCl 0.1 MG Tablet 0.05 MG PO (09:11)
[2019-04-18] MEDS: Furosemide 40 MG Tablet PO (09:11)
[2019-04-18] MEDS: guaiFENesin 1,200 MG Tablet 1200 MG PO (09:11)
[2019-04-18] MEDS: Oxybutynin 5 MG Tablet PO (09:11)
[2019-04-18] MEDS: Minoxidil 2.5 MG Tablet PO (09:11)
[2019-04-18] MEDS: Spironolactone 25 MG Tablet PO (09:12)
--- NOTE | 2019-04-18 09:50 | DCINST_ITS ---
- Discharge Diagnoses Current Active Problems: Current Active and Chronic Problems Lower respiratory infection (Acute) Acute hypoxic respiratory insufficiency (Acute) Hypoxia (Acute) You will use the following diet at home:: No restrictions Your food should be the consistency of: Regular Your liquids should be the consistency of: Regular/Thin Discharge Activity: Return to Normal Activity Weight Bearing Status: Full weight bearing Allergies/Adverse Reactions: Allergies hydrocodone [From [place]] Adverse Reaction (Verified 04/14/19 10:39) Nausea sulfamethoxazole [From Bactrim] Adverse Reaction (Verified 04/14/19 10:39) Nausea trimethoprim [From Bactrim] Adverse Reaction (Verified 04/14/19 10:39) Nausea Medications to take at Discharge Clonidine HCl [Catapres] 0.5 tab PO BID 03/23/19 Dicyclomine HCl 20 mg PO DAILY PRN 03/23/19 Doxepin HCl [Sinequan] 25 mg PO PRN PRN 03/23/19 Fluoxetine HCl [Prozac] 60 mg PO DAILY 03/23/19 Furosemide [Lasix] 20 mg PO DAILY 03/23/19 Lorazepam [Ativan] 1 mg PO BID PRN 03/23/19 Losartan Potassium [Cozaar] 50 mg PO QHS 03/23/19 Minoxidil [Loniten] 2.5 mg PO BID 03/23/19 Mirtazapine [Remeron] 15 mg PO QHS 03/23/19 Oxybutynin [Ditropan] 5 mg PO BID 03/23/19 Pantoprazole Sodium 20 mg PO QHS 03/23/19 Pramipexole Di-HCl [Pramipexole Dihydrochloride] 0.75 mg PO QHS 03/23/19 Promethazine HCl 25 mg PO Q6H PRN PRN 03/23/19 Simvastatin [Zocor] 40 mg PO QHS 03/23/19 Spironolactone [Aldactone] 25 mg PO DAILY 03/23/19 MethylPREDNISolone DosePak [Medrol DosePak] 4 mg PO UD #1 box 04/18/19 Nystatin 500,000U/5ML [Mycostatin] 2.5 ml PO 4X/DAY #60 ml 04/18/19 The following prescriptions were given: MethylPREDNISolone DosePak [Medrol DosePak] 4 mg PO UD #1 box Transmission Status: Pending to [facility] Nystatin 500,000U/5ML [Mycostatin] 2.5 ml PO 4X/DAY #60 ml Transmission Status: Pending to [facility] Primary Care Physician: Jose L Valenzuela MD [Primary Care Provider] - Please follow up with your Primary Care Physician in: in one week Test Results: Test results from this visit will be discussed in further detail at your follow- up appointment, if applicable.
--- NOTE | 2019-04-18 10:12 | CASEMGMT ---
Addendum entered by Mary Lopez 04/18/19 10:48: This PRACHI BERNABE spoke with Roro at [facility] and she confirms referral for pt at this time for PT. She is aware of CCN referral as well. Roro voice no further questions/concerns at this time. Elma VELARDE CM Addendum entered by Mary Lopez 04/18/19 10:27: CCN referral placed and Berhane is aware and states will review pt/referral. Berhane is aware that pt to be set up with [facility] at discharge. Elma VELARDE CM Original Note: Per Marsha VELARDE, pt does not qualify for home oxygen at this time. This RN CM to room to discuss discharge plan with pt at this time. Pt does ask if there are any TCU beds available and according to Yosvany KAPOOR, there are no TCU beds available and pt walked 550ft yesterday with therapy. Pt states she does not wish to go anywhere else and would like to go home with [facility] at this time. Message left with Roro at [facility] at this time in regards to referral. Pt states no further questions/concerns/needs at this time. Elma VELARDE CM
[2019-04-18 11:00] LABS: Bedside Glucose 139 mg/dL (70-110)
--- NOTE | 2019-04-18 15:46 | PCM.DC.SUM ---
Discharge Date and Diagnosis Date of Admission: 04/14/19 Date of Discharge: 04/18/19 - Primary Discharge Diagnosis #1 acute bronchospasm secondary to acute parainfluenza virus infection- #2 acute hypoxia secondary to #1 #3 coronary artery disease #4 essential hypertension #5 type 2 diabetes - Secondary Discharge Diagnosis Chronic Problems Restless leg syndrome (Chronic) Insomnia (Chronic) Tinea corporis (Chronic) Diaphragmatic hernia (Chronic) Diabetes mellitus (Chronic) Coronary artery disease (Chronic) Obesity (Chronic) GERD (gastroesophageal reflux disease) (Chronic) Hx of appendectomy (Chronic) Benign essential HTN (Chronic) Depression (Chronic) HLD (hyperlipidemia) (Chronic) Overweight (BMI 25.0-29.9) (Chronic) CAD (coronary artery disease) (Chronic) Diabetes mellitus, type II (Chronic) Hyponatremia (Chronic) also has chronic mild hyponatremia Traumatic closed nondisplaced fracture of neck of left femur (Chronic) Status post closed reduction with internal fixation (Chronic) left femur 06/22, Dr Spears, [facility] Tinea unguium (Chronic) Dyskinesia, tardive (Chronic) Brain aneurysm (Chronic) Hypertension (Chronic) Diabetic neuropathy (Chronic) Hospital Course and Treatment Operations: None Procedures: None Summary of Care Provided: The patient is a 78 year old F the emergency room at [facility] with a chief complaint of shortness of breath. She complained of a productive cough which started 3 days earlier. She had yellow sputum production. Pulse ox had been as low as 76% at home with ambulation, she denied any fevers or chills. Examination in the emergency room revealed her to have expiratory wheezes bilaterally, she required low flow supplemental oxygen to maintain her pulse ox above 90, chest x-ray was unremarkable and did not show any infiltrate. Pulse oximetry dropped 72% when she ambulated. CBC was unremarkable. Creatinine was slightly elevated at 1.12. Patient was admitted to PCU, aerosol treatments were continued, pulse ox was monitored, patient was seen by PT and OT, respiratory panel was obtained which was positive for parainfluenza virus. Patient was maintained on IV Solu-Medrol, respiratory status gradually improved during her hospital stay. On 04/18/2019, patient was seen and examined: On examination she appeared in good health and spirits. Vital signs as documented. Skin warm and dry and without overt rashes. Neck without JVD. Lungs clear. Heart exam notable for regular rhythm, normal sounds and absence of murmurs, rubs or gallops. Abdomen unremarkable and without evidence of organomegaly, masses, or abdominal aortic enlargement. Extremities nonedematous. Neuro: Cranial nerves II through XII are grossly intact, no focal motor deficits were noted, sensation to light touch and pinprick is intact. Psych: Patient is alert and oriented x3, she does not appear anxious or depressed On 04/18/2019, patient was seen and examined and felt to be in stable condition for discharge home, she required no supplemental oxygen at the time of discharge. - Physical Exam Vital Signs Temp Pulse Resp BP Pulse Ox 98.8 F 93 18 119/62 96 04/18/19 09:08 04/18/19 09:08 04/18/19 09:08 04/18/19 09:08 04/18/19 10:02 Oxygen Flow Rate (L/min) 1 Oxygen Delivery Method Room Air Weight: 61.6 kg Body Mass Index (BMI) 24.0 Finger Stick Blood Glucose 176 Intake and Output for Last 24 Hours 04/16/19 04/17/19 04/18/19 23:59 23:59 23:59 Intake Total 2340 / 2340 720 / 720 Output Total 1500 / 1500 200 / 200 Balance 840 / 840 520 / 520 Microbiology Past 72 Hours 04/14/19 15:33 Respiratory Panel (PCR) - Final Mucosa - Nasopharyngeal Parainfluenza 4 POC Glucose 04/18/19 04/18/19 04/17/19 10:56 06:46 21:34 POC Glucose 139 H 136 H 141 H 04/17/19 16:26 POC Glucose 137 H Discharge Activity: Return to Normal Activity Weight Bearing Status: Full weight bearing Home Medications: Medications to take at Discharge Clonidine HCl [Catapres] 0.5 tab PO BID 03/23/19 Dicyclomine HCl 20 mg PO DAILY PRN 03/23/19 Doxepin HCl [Sinequan] 25 mg PO PRN PRN 03/23/19 Fluoxetine HCl [Prozac] 60 mg PO DAILY 03/23/19 Furosemide [Lasix] 20 mg PO DAILY 03/23/19 Lorazepam [Ativan] 1 mg PO BID PRN 03/23/19 Losartan Potassium [Cozaar] 50 mg PO QHS 03/23/19 Minoxidil [Loniten] 2.5 mg PO BID 03/23/19 Mirtazapine [Remeron] 15 mg PO QHS 03/23/19 Oxybutynin [Ditropan] 5 mg PO BID 03/23/19 Pantoprazole Sodium 20 mg PO QHS 03/23/19 Pramipexole Di-HCl [Pramipexole Dihydrochloride] 0.75 mg PO QHS 03/23/19 Promethazine HCl 25 mg PO Q6H PRN PRN 03/23/19 Simvastatin [Zocor] 40 mg PO QHS 03/23/19 Spironolactone [Aldactone] 25 mg PO DAILY 03/23/19 MethylPREDNISolone DosePak [Medrol DosePak] 4 mg PO UD #1 box 04/18/19 Nystatin 500,000U/5ML [Mycostatin] 2.5 ml PO 4X/DAY #60 ml 04/18/19 Following Prescrptions Were Given to Patient: MethylPREDNISolone DosePak [Medrol DosePak] 4 mg PO UD #1 box Transmission Status: Received by [facility] Nystatin 500,000U/5ML [Mycostatin] 2.5 ml PO 4X/DAY #60 ml Transmission Status: Received by [facility] Primary Care Physician: Jose L Valenzuela MD [Primary Care Provider] - Please follow up with your Primary Care Physician in: in one week Please Follow Up With: Joes L Valenzuela MD Disposition: Home Minutes spent on discharge:: 31 Patient Condition:: Stable Medical Necessity - Tobacco Use Smoking Status: Former smoker Tobacco Use: Cigarettes Meaningful Use Info Meaningful Use Diagnoses (Choose all that apply): None applicable Code Visit Inpatient E&M: 91416 Disch Hosp
--- NOTE | 2019-04-21 12:39 | CASEMGMT ---
RN EMILE PHONE CALL DC DATE: 04/18/19 DC Disposition: Home with [facility] Diagnosis on Discharge: Bronchospasm, parainfluenza virus LACE/STRATA:04/01 Attempted call to pt. No answer. Call to Roro @ [facility]- PT has seen pt today and nursing will see pt tomorrow. Urvashi CHENN RN AC
--- NOTE | 2019-04-29 13:13 | CCN.REFER ---
Referral received for CCN. After multiple attempts over the last few weeks - I was able to connect with Patient. States that she is not interested in CCN services. Use to be in our program, and she states I loved it. Declines due to too many people coming in and out right now. Education provided to patient about CCN program and co managing care with other services. Patient continues to decline. Phone number provided in case her decision is changed.
== END 2019-04-18 11:14 | disposition home health service (06) | DRG 202 ==
LOC: ED 14:01 → PCU 14:01
PROVIDERS: Admitting Provider Internal Medicine; Emergency Provider Emergency Medicine; Family Provider Family Medicine; PCP Family Medicine; Referring Provider Internal Medicine; Visit Provider Internal Medicine
DX: J20.4 Acute bronchitis due to parainfluenza virus (principal); E87.1 Hypo-osmolality and hyponatremia; K44.9 Diaphragmatic hernia without obstruction or gangrene; R32 Unspecified urinary incontinence; I10 Essential (primary) hypertension; R09.02 Hypoxemia; R06.89 Other abnormalities of breathing; I25.10 Atherosclerotic heart disease of native coronary artery without angina pectoris; K21.9 Gastro-esophageal reflux disease without esophagitis; E78.5 Hyperlipidemia, unspecified; E11.40 Type 2 diabetes mellitus with diabetic neuropathy, unspecified; Z87.891 Personal history of nicotine dependence
CPT/HCPCS: 36415; 71046; 80048; 82962; 83735; 83880; 84443; 84484; 85025; 87449; 87633; 93005; 94640; 94667; 94668; 97116; 97162; 97166; 97530; 97535; 97802; 99285; J7030; A4216

== ENCOUNTER 2019-06-25 08:41 | Inpatient (IN) | payer MEDICARE, SELFPAY ==
[2019-04-14 15:54] VITALS: BMI 24.0
[2019-06-25] VITALS (18 sets, daily range): BP systolic 88–138; BP diastolic 54–80; PULSE 70–108; RESP 16–18; TEMP 36.3–37.5; O2SAT 92–98; BMI 25.7; BMI 23.9; BMI 24.0
--- NOTE | 2019-06-25 09:10 | CT_ITS ---
STUDY: CT ABDOMEN AND PELVIS WITHOUT CONTRAST REASON FOR EXAM: Female, 78 years old. Nausea, vomiting and diarrhea. RADIATION DOSAGE (If Supplied By Facility): CTDIvol = ( 6.45 ) mGy, DLP = ( 315.90 ) mGycm TECHNIQUE: Transaxial images were obtained from the dome of the diaphragm to the symphysis pubis without oral contrast, and without intravenous contrast. Sagittal and coronal images were reconstructed. Individualized dose optimization techniques were used for this CT. COMPARISON: Comparison is made with prior study dated October 09, 2018. FINDINGS: Stable elevation of the right hemidiaphragm suggestive of diaphragmatic hernia. The fundal portion of the stomach is herniated into the right hemithorax. Stable calcified pleural plaques on the right side with a small pleural effusion. Stable calcified pleural plaques on the left side as well. Coronary artery calcification. Normal liver. There are surgical clips in the gallbladder fossa consistent with a prior cholecystectomy. Normal spleen. Normal pancreas. Normal bilateral adrenal glands. Normal right kidney. There is a 6.8 mm calculus in the lower pole calyx of the left kidney. Small cyst in the left kidney as well. There is distention of the stomach with fluid and retained food particles. Normal small intestine. Normal colon. There are surgical clips in the region of the appendix consistent with a prior appendectomy. There is diffuse atherosclerotic calcification of the abdominal aorta, without a demonstrated aneurysm. Normal inferior vena cava. Normal retroperitoneum. Normal urinary bladder. Enlarged calcified fibroid uterus. Normal abdominal wall. There are diffuse degenerative changes of the visualized lumbar spine. Status post left total hip replacement. CT/Abdomen/Pelvis without Cont IMPRESSION: Stable right diaphragmatic hernia. Distention of the stomach with fluid and residual food particles. Gastric outlet obstruction should be ruled out. Stable nonobstructive left renal calculus. Electronically Signed: Fan Benavidez, at 9:46 EDT , Service support ,
--- NOTE | 2019-06-25 09:10 | EKG12_ITS ---
Test Reason : ELEVATED TROPONIN Blood Pressure : / mmHG Vent. Rate : 091 BPM Atrial Rate : 091 BPM P-R Int : 154 ms QRS Dur : 080 ms QT Int : 390 ms P-R-T Axes : 087 -40 -06 degrees QTc Int : 479 ms Normal sinus rhythm Left axis deviation Low voltage QRS ST elevation consider lateral injury or acute infarct ACUTE [place] / STEMI Abnormal ECG Confirmed by FAB ARRIOLA, LENARD ([id number]), industrial editor NELLY ROBINS ([id number]) on 07/01/2019 10:32:57 AM Referred By: Pankaj Garcia Confirmed By:JESÚS SANON MD
[2019-06-25] MEDS: Ondansetron 4 MG/2 ML Vial IV (09:15)
[2019-06-25] MEDS: 0.9% Normal Saline 1,000 ML 1000 ML IV (09:15)
[2019-06-25 09:40] LABS: Absolute Lymphocyte Count 0.96 X10^3/uL (0.83-4.51); Absolute Neutrophil Count 8.9 X10^3/uL (2.0-7.7); Basophil# 0.04 X10^3/uL; Basophil% 0.4 % (0-1); Eosinophil# 0.11 X10^3/uL; Eosinophils% 1.1 % (0-5); Hemoglobin 12.9 g/dL (12.0-15.0); Lymphocyte # 0.96 X10^3/ul (4.0); Lymphocyte % 9.4 % (19-41); Mean Corp Hgb Conc 33.1 g/dL (32-36); Mean Corpuscular Hgb 30.6 pg (27.0-32.0); Mean Corpuscular Volume 92.6 fL (81-99); Mean Platelet Vol. 9.2 fl (6.2-12.0); Monocyte# 0.18 X10^3/uL; Monocyte% 1.8 % (0-10); NRBC Flagged by Analyzer 0 % (0-5); Neutrophil # 8.87 X10^3/uL (2.7-7.7); Neutrophil % 86.9 % (47-70); POSITIVE MORPHOLOGY YES; Platelet Count 249 K/mm3 (150-450); RBC Distribution Width CV 12.3 % (11.6-14.6); RBC Distribution Width SD 41.4 fl (35.1-43.9); Red Blood Count 4.21 M/mm3 (4.2-5.4); White Blood Count 10.2 K/mm3 (4.4-11.0)
[2019-06-25 09:47] LABS: Differential Indicated SCAN CRITERIA MET
--- NOTE | 2019-06-25 09:47 | EKG12_ITS ---
Test Reason : NAUSEA/VOMITING Blood Pressure : / mmHG Vent. Rate : 093 BPM Atrial Rate : 093 BPM P-R Int : 176 ms QRS Dur : 066 ms QT Int : 360 ms P-R-T Axes : 094 -26 -08 degrees QTc Int : 447 ms Normal sinus rhythm Low voltage QRS ST elevation consider lateral injury or acute infarct ACUTE ID / STEMI Abnormal ECG Confirmed by FAB ARRIOLA, LENARD ([id number]), commissioning editor JUDIE SUAREZ ([id number]) on 07/01/2019 1:10:24 PM Referred By: Pankaj Garcia Confirmed By:JESÚS SANON MD
[2019-06-25] MEDS: Morphine 4 MG/ML Syringe IV (10:00)
[2019-06-25 10:02] LABS: Lactic Acid 1.3 mmol/L (0.4-2.0)
[2019-06-25 10:10] LABS: Bacteria 0 SEEN /hpf (None Seen); Mucous, Urine 0 SEEN /hpf (<or=2+); Red Blood Cells-Urine 0 SEEN /hpf (0-5); Squamous Epithelial Cells - UA 0 SEEN /hpf (5-10)
[2019-06-25 10:16] LABS: Color, Urine Yellow (Yellow); Glucose, Dipstick Normal (Normal); Ketone-Dipstick 15 mg/dl (Negative); Leukocyte Esterase-Dipstick 25 /ul (Negative); Nitrite-Dipstick Positive (Negative); Occult Blood-Urine 10 /ul (Negative); Protein-Dipstick 30 mg/dl (Negative); Urine Bilirubin Dipstick Negative (Negative); Urine Clarity Clear (Clear); Urine Urobilinogen Normal (Normal)
[2019-06-25 10:21] LABS: White Blood Cells 0-5 SEEN /hpf (0-5)
[2019-06-25 10:24] LABS: AST(SGOT) 24 U/L (15-37); Alanine Aminotransfer ALT/SGPT 17 U/L (13-56); Albumin, Serum 3.8 g/dL (3.2-5.0); Alkaline Phosphatase 148 U/L (45-117); Anion Gap 5 (5-15); BUN 23 mg/dL (7-18); BUN/Creat Ratio 16.2 RATIO (10-20); Calcium,Total 9.5 mg/dL (8.5-10.1); Chloride 102 mmol/L (98-107); Creatinine, Serum 1.42 mg/dL (0.55-1.02); EST Glomerular Filtration Rate 38 mL/min (>60); Est Glom Filt Rate - Afr Amer 46 mL/min (>60); Estimated Creatinine Clearance 26.14 ml/min; Glucose 139 mg/dL (74-106); Lipase 123 U/L (73-393); Potassium 3.8 mmol/L (3.5-5.1); Protein, Total 7.8 g/dL (6.4-8.2); Sodium Level 137 mmol/L (136-145)
--- NOTE | 2019-06-25 10:32 | NURSING ---
DR MANCIA PAGED
--- NOTE | 2019-06-25 10:55 | NURSING ---
PAGED DR BEAN
--- NOTE | 2019-06-25 10:58 | NURSING ---
DR BEAN RETURNED CALL
--- NOTE | 2019-06-25 11:00 | NURSING ---
DR MANCIA PAGED
--- NOTE | 2019-06-25 11:12 | ECHOD_ITS ---
Reason For Study: Elevated Troponin Procedure This was a 2D Doppler, Color Flow transthoracic echocardiogram. Exam performed portable in ED. Left Ventricle Moderately dilated left ventricle. The estimated ejection fraction is 20-25 %. Stage 1 diastolic dysfunction. Mid-Anterior : Severely Hypokinetic. Mid-Lateral : Severely Hypokinetic. Anterior Thayer : Akinetic. Inferior Thayer : Akinetic. Right Ventricle Normal size and thickness. Normal systolic function. Atria Normal left atrium. Normal right atrium. Normal atrial septum. Mitral Valve The mitral valve is structurally normal. No prolapse or stenosis seen. Mild (1+) mitral valve insufficiency. Tricuspid Valve Normal tricuspid valve. Mild (1+) tricuspid valve insufficiency. Right ventricular systolic pressure estimated to be 48 mmHg. Mild pulmonary hypertension. Aortic Valve Trisinus/trileaflet aortic valve. Mild diffuse aortic valve thickening. Mild (1+) aortic valve insufficiency. Pulmonic Valve Normal pulmonic valve. Great Vessels Normal aortic root. Normal arch. Normal inferior vena cava. Inferior vena cava collapse with respiration. Pericardium/Pleural Trivial pericardial effusion. There are no echocardiographic indications of cardiac tamponade. MMode/2D Measurements & Calculations LVIDd: 5.4 cm IVSd: 1.00 cm Ao root diam: 3.1 cm LVIDs: 4.6 cm LVPWd: 1.1 cm LA dimension: 3.5 cm RVDd: 3.1 cm FS: 14.4 % LAV(MOD-bp): 37.9 ml LVAd ap4: 28.6 cm2 SV(MOD-sp4): 23.5 ml LAV(MOD-bp) Indexed: 22.5 ml/m2 EDV(MOD-sp4): 89.8 ml LAV(MOD-sp2): 64.3 ml EDV(sp4-el): 94.5 ml LAV(MOD-sp4): 17.2 ml LVAs ap4: 22.9 cm2 ESV(MOD-sp4): 66.3 ml ESV(sp4-el): 68.1 ml EF(MOD-sp4): 26.2 % EF(sp4-el): 27.9 % SV(sp4-el): 26.4 ml LA A4 area: 9.0 cm2 RA A4 area: 9.9 cm2 Doppler Measurements & Calculations MV E max mehrdad: 45.7 cm/sec Lat Peak E' Mehrdad: 8.2 cm/sec Med Peak E' Mehrdad: 3.5 cm/sec MV A max mehrdad: 61.1 cm/sec E/E' lat: 5.6 E/E' med: 12.9 MV E/A: 0.75 Ao V2 max: 123.1 cm/sec LV V1 max: 94.0 cm/sec PA V2 max: 78.5 cm/sec Ao max P.1 mmHg LV V1 max P.5 mmHg Ao V2 mean: 84.0 cm/sec Ao mean P.0 mmHg Ao V2 VTI: 19.8 cm TR max mehrdad: 331.3 cm/sec TR max P.9 mmHg Interpretation Summary Moderately dilated left ventricle. The estimated ejection fraction is 20-25 %. Stage 1 diastolic dysfunction. Mid-Anterior : Severely Hypokinetic. Mid-Lateral : Severely Hypokinetic. Anterior Thayer : Akinetic. Inferior Thayer : Akinetic. Mild (1+) mitral valve insufficiency. Mild (1+) tricuspid valve insufficiency. Right ventricular systolic pressure estimated to be 48 mmHg. Mild pulmonary hypertension. Mild (1+) aortic valve insufficiency. Trivial pericardial effusion. There are no echocardiographic indications of cardiac tamponade. Compared to echo report dated 10/20/2017, LV function has markedly deteriorated from 75% to 25% with probable Takostubo cardiomyopathy on today's exam. RVSP has remained about the same. Ordering Physician: Immanuel Hinojosa Referring Physician: Jose L Valenzuela Performed By: Shirin Humphrey, REJI, RVT
[2019-06-25] MEDS: Aspirin 300 MG Suppository RECTAL (11:17)
[2019-06-25] MEDS: Heparin Injection (Vial) 5,000 UNIT/ML VIAL 4000 UNIT IV (11:19)
--- NOTE | 2019-06-25 11:19 | NURSING ---
DR BRAND FOR DR OAKES
--- NOTE | 2019-06-25 11:30 | ED.VISSUMM ---
- ER Visit Summary Date of Service: 06/25/19 Chief Complaint: [Abdominal pain and vomiting] History of Present Illness: The patient is a 78 F [presents to the emergency department complaint of abdominal pain and vomiting that started yesterday. Patient was able to eat lunch without difficulty yesterday per her son. Patient also has been having frequent stools that she describes as chunky but not necessarily watery since yesterday. She had no fever. She had decreased urine output. She denies any chest pain or shortness of breath. Patient has had history of prior hypertension and cholecystectomy. Patient had appendectomy. Patient has history of a diaphragmatic hernia.] Physical Examination: [HEENT-PERRLA, EOMI. Cranial nerves II through XII grossly intact. TMs clear. Mucous membranes moist. No adenopathy. Cardiovascular-regular rate and rhythm without murmur or ectopy Lungs-clear to auscultation, chest wall stable without crepitus or subcu emphysema Abdomen-normoactive bowel sounds, soft. Patient has tenderness diffusely with some guarding. There is no rebound, rigidity, cranial signs. Extremities-intact ?4, normal range of motion, normal pulses, atraumatic] Test Results: [EKG obtained on arrival showed a sinus rhythm with a ventricular rate of 93 bpm with some nonspecific ST changes noted with minimal ST elevation in leads I and aVL when compared with prior EKG. CBC with differential obtained showing a 10.2, hemoglobin 12.9, hematocrit 39, placed 249. Chemistries unremarkable. BUN was 23 and creatinine 1.42. LFTs were normal. Urinalysis normal. Point was 3.97. CT scan of the abdomen pelvis read by radiology as prior cholecystectomy as well as appendectomy. Patient noted to have a stable right diaphragmatic hernia. Patient had distention of the stomach with fluid and residual food particles in the gastric outlet obstruction should be ruled out.] Emergency Department Course and Treatment: [Patient was given rectal aspirin. Patient case was discussed with cardiology on-call Dr. Hinojosa who ordered heparin for the patient. Also ordered was a stat echocardiogram. This was also discussed with hospitalist will evaluate patient for admission] Treatment Plan: [Admit Disposition: [Admit] Impression: [Non-ST elevation IA Abdominal pain Vomiting] This note was generated with [employer] software. It may contain incorrect words, spelling, and punctuation that were not noted in review of the chart prior to signing ED Disposition - Plan for ED Patient: Referrals: Jose L Valenzuela MD [Primary Care Provider] -
--- NOTE | 2019-06-25 11:44 | NURSING ---
DR BRAND IN ROOM
--- NOTE | 2019-06-25 11:48 | NURSING ---
DR MANCIA IN [facility]
[2019-06-25] MEDS: Lidocaine 4% 5 ML Ampul 2 ML INHALATION ×2 (12:45→13:35)
--- NOTE | 2019-06-25 13:45 | RAD_ITS ---
STUDY: X-RAY - ABDOMEN/PELVIS REASON FOR EXAM: Female, 78 years old. NG tube placement TECHNIQUE: Single AP view of the abdomen / pelvis. COMPARISON: CT dated 06/25/2019 FINDINGS: There is a stable large diaphragmatic hernia. There is an enteric tube noted with its tip in the stomach. Again noted is distention of the stomach. There is no bowel obstruction. There is air and stool to the level of the rectum. The visualized osseous structures are within normal limits. RAD/Abdomen Single View (Portable) IMPRESSION: Enteric tube tip in the stomach. Stable distention of the stomach. No bowel obstruction. Stable large diaphragmatic hernia. Electronically Signed: Jim Gibbons, at 16:33 EDT Tel , Service support ,
--- NOTE | 2019-06-25 14:06 | NURSING ---
PUNCH PRESS SETTER DR MANCIA PUNCH PRESS SETTER COMING FOR PATIENT
--- NOTE | 2019-06-25 14:07 | CON.PCM_ITS ---
Problem List (1) Non-STEMI (non-ST elevated myocardial infarction) Status: Acute (2) CAD (coronary artery disease) Status: Chronic (3) Takotsubo syndrome Status: Resolved Reason for Consult Date of Consultation: 06/25/19 Reason for Consultation: Non-STEMI, abdominal pain, acute LV dysfunction, Takostubos cardiomyopathy History of Present Illness: The patient is a 78 year old F, reportedly a patient of Dr. Escoto, with a history of Takostubos cardiomyopathy diagnosed in 2011 and apparently had a catheterization at outside facility at that time. Her most recent echocardiogram dated 10/20/2017 reportedly showed complete normalization of her LV function with an EF of 75%, and an RVSP of 48 mmHg. Patient was in normal health up until around midnight last evening when she developed acute nausea and vomiting, which persisted for most of the night. She called her son at around 2:30 in the morning and he went over to her home and apparently she had mildly improved. Her symptoms apparently persisted into the morning, to the point where she had abdominal pain and bloating. She reported to the emergency room where she had abdominal tenderness, abdominal distention, and excessive nausea and vomiting. Her vomiting was brown particulate matter, no bright red blood, or hematemesis. At no time did she complain of any chest pain. As a matter of completeness an EKG was performed which demonstrated normal sinus rhythm with lateral J-point elevation in 1 aVL. I was called by Dr. Doyle, to review her EKGs and came to see the patient urgently. Upon arrival the patient had no chest pain, but did have diffuse abdominal tenderness, abdominal bloating, and was writhing with nausea. An stat echocardiogram at the bedside in the ER demonstrated severe anterior, lateral, inferior and apical hypokinesis with good proximal contractility consistent with Takostubos cardiomyopathy. An NG tube was placed in the emergency room, with improved relief with nausea, abdominal tenderness, and abdominal distention. Telemetry showed normal sinus rhythm, no ventricular arrhythmias. On further history the patient denies any recent exertional angina, chest pain, shortness of breath recently got a flu shot about 2 weeks ago, but has had no acute upper respiratory illnesses. [] Past Medical History Allergies/Adverse Reactions: Allergies hydrocodone [From [place]] Adverse Reaction (Verified 06/25/19 08:45) Nausea sulfamethoxazole [From Bactrim] Adverse Reaction (Verified 06/25/19 08:45) Nausea trimethoprim [From Bactrim] Adverse Reaction (Verified 06/25/19 08:45) Nausea Home Medications: Ambulatory Orders Medication Instructions Recorded Clonidine HCl [Catapres] 0.5 tab PO BID 03/23/19 Doxepin HCl [Sinequan] 25 mg PO PRN PRN 03/23/19 Fluoxetine HCl [Prozac] 60 mg PO DAILY 03/23/19 Furosemide [Lasix] 40 mg PO DAILY 03/23/19 Lorazepam [Ativan] 1 mg PO BID PRN 03/23/19 Losartan Potassium [Cozaar] 50 mg PO QHS 03/23/19 Minoxidil [Loniten] 2.5 mg PO BID 03/23/19 Mirtazapine [Remeron] 30 mg PO QHS 03/23/19 Oxybutynin [Ditropan] 5 mg PO BID 03/23/19 Pantoprazole Sodium 20 mg PO QHS 03/23/19 Pramipexole Di-HCl [Pramipexole 0.75 mg PO QHS 03/23/19 Dihydrochloride] Promethazine HCl 25 mg PO Q6H PRN PRN 03/23/19 Simvastatin [Zocor] 40 mg PO QHS 03/23/19 Spironolactone [Aldactone] 25 mg PO DAILY 03/23/19 Aspirin 81 mg PO DAILY 06/25/19 Senna [Senokot] 2 tab PO QHS 06/25/19 Past Medical History (Chronic Problems): Chronic Problems Restless leg syndrome (Chronic) Insomnia (Chronic) Tinea corporis (Chronic) Diaphragmatic hernia (Chronic) Diabetes mellitus (Chronic) Coronary artery disease (Chronic) Obesity (Chronic) GERD (gastroesophageal reflux disease) (Chronic) Hx of appendectomy (Chronic) Benign essential HTN (Chronic) Depression (Chronic) HLD (hyperlipidemia) (Chronic) Overweight (BMI 25.0-29.9) (Chronic) CAD (coronary artery disease) (Chronic) Diabetes mellitus, type II (Chronic) Hyponatremia (Chronic) also has chronic mild hyponatremia Traumatic closed nondisplaced fracture of neck of left femur (Chronic) Status post closed reduction with internal fixation (Chronic) left femur 06/22, Dr Spears, [facility] Tinea unguium (Chronic) Dyskinesia, tardive (Chronic) Brain aneurysm (Chronic) Hypertension (Chronic) Diabetic neuropathy (Chronic) Surgical History: appendectomy, cholecystectomy, herniorrhaphy, tonsillectomy, - - 06/22/15 left hip CRIF Psychiatric History: Anxiety, Depression 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: No pertinent AUTOMATED PROCESS 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 Denies: Hematemesis, Hematochezia, Melena Genitourinary: Denies: Dysuria, Hematuria Skin: Denies: Rash Subjectve: Patient resting comfortably, no acute distress, no chest pain, no angina, able to lay down flat after NG tube placement without difficulty. Objective: Vital Signs Temp Pulse Resp BP Pulse Ox 98 F 101 H 18 100/67 96 06/25/19 08:42 06/25/19 13:56 06/25/19 13:56 06/25/19 13:56 06/25/19 13:56 Oxygen Flow Rate (L/min) 2 Oxygen Delivery Method Nasal Cannula Weight: 145 lb Body Mass Index (BMI) 25.7 Finger Stick Blood Glucose 176 Intake and Output for Last 24 Hours 06/23/19 06/24/19 06/25/19 23:59 23:59 23:59 Intake Total 1000 / 1000 Balance 1000 / 1000 General: Awake, Alert, Oriented x 3 HEENT: PERRL, EOMI, Sclera Non Icteric Neck: Supple, Good ROM, No Lymph Node Enlargement Lungs: Clear to auscultation Cardiovascular: Regular Rhythm, Normal S1, Normal S2, No Murmurs, No Rubs, No Gallops Vascular: No Carotid Bruits, Normal Femoral Pulses, Normal Radial Pulses, Normal Dorsalis Pedal Pulse, Normal Posterior Tibial Pulses Abdomen: Bowel Sounds Present, Soft, Non Tender, No HSM, No Organomegaly Extremities: No Cyanosis, No Clubbing, No edema Neurological: No Focal Motor or Sensory Deficit 06/25/19 09:25: WBC 10.2, RBC 4.21, Hgb 12.9, Hct 39.0, MCV 92.6, MCH 30.6, MCHC 33.1, Plt Count 249, MPV 9.2, Immature Gran % (Auto) 0.400, Neut % (Auto) 86.9 H, Lymph % (Auto) 9.4 L, [place] % (Auto) 1.8, Eos % (Auto) 1.1, Baso % (Auto) 0.4, Absolute Neuts (auto) 8.9 H, Nucleated RBC % 0 06/25/19 09:25: Sodium 137, Potassium 3.8, Chloride 102, Carbon Dioxide 30.0, Anion Gap 5, BUN 23 H, Creatinine 1.42 H, Est GFR (MDRD) Af Amer 46 L, Est GFR (MDRD) Non-Af 38 L, BUN/Creatinine Ratio 16.2, Glucose 139 H, Calcium 9.5, Total Bilirubin 0.30, Troponin I 3.970 H* 06/25/19 09:25: Lactic Acid 1.3 06/25/19 10:05: Urine Color Yellow, Urine Clarity Clear, Urine pH 8.0, Ur Specific [place] 1.010, Urine Protein 30 H, Urine Glucose (UA) Normal, Urine Ketones 15 H, Urine Occult Blood 10 H, Urine Nitrite Positive H, Urine Bilirubin Negative, Urine Urobilinogen Normal, Ur Leukocyte Esterase 25 H, Urine RBC 0 SEEN, Urine WBC 0-5 SEEN Rhythm: EKG: As above ECHO: As above Stress Test: Cardiac Cath: Pending PCI: CT Surgery: Holter monitor: EPS: PPM: CXR: Chest CT Scan: Assessment/Plan 1. Abnormal troponin: The patient has an abnormal troponin of 3.9, superimposed on what appears to be acute LV dysfunction consistent with acute cardiomyopathy, possibly due to talk at [place] cardiomyopathy. Echocardiogram shows an EF of 25% reduced from 75% in 2018. In addition her EKG shows normal sinus rhythm with what appears to be lateral ST segment J-point elevation/ST elevation. However, the patient has no anginal symptoms now or in the recent past. Given the patient's age, abnormal EKG, abnormal echo, abnormal troponins, and the possible need for urgent surgical correction of what may be a small bowel obstruction at an unknown time in the future, I recommended the patient undergo an urgent left heart catheterization, coronary angiogram, and LV pressures. We will hold off on doing an LV gram given her echocardiogram already shows severe LV dysfunction, and with respect to her chronic renal insufficiency. The patient was given 4 baby aspirins rectally, and 4000 units of IV heparin in the emergency room. She has had no hematemesis., Should the patient require angioplasty, she will need to have dual antiplatelet therapy and if she needs bernard rgery this will need to be continued. Patient had Dr. Lambert consultation and will confer with him with respect to any intervention if needed. My hope is that the patient has relatively intact coronary arteries and does not require intervention and that this is acute adrenaline induced cardiomyopathy. 2. LV dysfunction: Given the patient's hypotension, we will hold off on antihypertensive therapy at this time. The patient will require beta-carlton therapy lifelong once her condition has stabilized and she is able to take p.o. medications. We can substitute IV beta-carlton in the meantime. 3. Small bowel obstruction: It appears the patient may have some sort of small bowel obstruction or possible peptic ulcer disease. The patient has had no hematemesis, but does complain of worsening and smaller stools over the last year. She has not had a colonoscopy in many years. 4. Thank you very much for the opportunity to participate in the cardiac care of your patient. The risks/benefits of the cardiac catheter ablation procedure were thoroughly explained the patient, including specific attention to lack of on-site surgical back-up, to both the patient and her son, and the patient agrees to proceed. Left heart catheterization to follow. Code Visit Inpatient E&M: 94379 Init Hosp L2
--- NOTE | 2019-06-25 15:12 | CL.D_ITS ---
Patient Name: VASILIY HYATT Study Date: 06/25/2019 Performing: Immanuel Hinojosa MD Ht: 62.99 inches 160 cm : 1940 Wt: 145.51 lbs 66 kg Age: 78 Gender: female BSA: 1.69 PROCEDURE(S) PERFORMED LC50-UJL/COR CLINICAL PROFILE AND INDICATIONS Indications: ACS <= 24 hrs, Suspected CAD, Cardiomyopathy, Pre-Operative Evaluation Heart Failure: NYHA Class: 1, Newly Diagnosed: Yes, Heart Failure Type: Systolic Stress/Imaging Stress/Image Study Performed: No Angina Classification Anginal Classification w/in 2 Weeks: No symptoms CAD Presentations: No Sxs, no angina. Other: ACS, acute newly discovered LV dysfunction c/w Takot stuobs cardiomyopathy. Non-STEMI. Symptom onset Date/Time: 06/25/2019 midnight Comorbidities/Risk Factors: Prior CHF Hypertension CONCLUSIONS Non obstructive coronary arteries Cardiomyopathy: Takotsubo by echo; LV gram not done due to CRI. RECOMMENDATIONS Management as per referring [facility] General surgery consult for severe hiatal hernia and bowel obstruction. Pt is at moderate risk for surgical intervention given acute LV dysfunction as a result of Takostubo' s cardiomyopathy. Avoid aggressive fluid administration to avoid pulmonary edema. Manual sheath removal. D/w Dr Garcia. DESCRIPTION OF PROCEDURE The patient arrived to the procedure lab. The risks and benefits of the procedure as well as a full d escription of our services here and current unavailability of surgical backup were fully explained to the patient and/or their significant other prior to the catheterization. The Timeout was completed, verifying the correct patient and procedure. The patient's procedural site was prepped and draped in the usual fashion. Local anesthetic was given subcutaneously to right groin region with Lidocaine 2%. Using a modified Seldinger technique, arterial access was obtained via the right femoral artery, a 4 Fr sheath was inserted Left Coronary Artery selective angiography was performed in multiple views us ing a 4 Fr. JL5 catheter. Right Coronary Artery selective angiography was then performed in multiple views using a 4 Fr. 3DRC catheter. LV to AO pullback pressures were then recorded.The arterial sheath was pulled and manual compression applied until hemostasis is achieved. CORONARY ANGIOGRAPHY DOMINANCE: Right Dominant LEFT HEART ASSESSMENT Left Ventricular Ejection Fraction: Not assessed LEFT MAIN: Angiographically normal LEFT ANTERIOR DESCENDING ARTERY: Mild luminal irregularities less than 30% CIRCUMFLEX ARTERY: Angiographically normal, Mild luminal irregularities less than 30% RIGHT CORONARY ARTERY: Angiographically normal COMPLICATIONS No Complications PROCEDURE MEDICATIONS Oxygen: 2 L/min via nasal cannula SUMMARY OF HEMODYNAMIC DATA Time AIR REST ECG 14:36:01 AO 100/58 (75) SA 14:45:10 LV 95/-3, 23 14:50:14 LV 97/-4, 24 14:50:21 LVp 97/-4, 22 14:50:28 AOp 97/54 (70) 14:50:33 Signed By Immanuel Hinojosa MD On 06/25/2019 15:11:40 Immanuel Hinojosa MD
[2019-06-25] MEDS: 0.9% Normal Saline 1,000 ML 100 ML IV (16:01)
--- NOTE | 2019-06-25 16:51 | HP.PCM_ITS ---
History of Present Illness Date of Admission: 06/25/19 Chief Complaint: Nausea, vomiting, diarrhea The patient is a 78 year old F with a history of Takotsubo cardiomyopathy presented with acute onset nausea and vomiting with diarrhea. She states that yesterday she had lunch with her son at around 2 3 in the afternoon and was doing normal all day until midnight last night when she started having nausea and vomiting for most of the night. She came into the ER after calling her son, when symptoms continued into the morning and she was having some upper abdominal pain and she continued having feelings of nausea and vomiting as well as diarrhea which she describes as chunky. In the ER she had a CT scan of her abdomen and pelvis which demonstrated a large diaphragmatic hernia with have of her stomach in the chest cavity and the other have wrapped around the spleen. It appears to be very distended compared to her prior CT scan. She has had a diaphragmatic hernia for many years and has been told that it cannot be repaired anywhere other than [facility]. Also she states that she has been having unintentional weight loss of about 35 to 40 pounds since October, and she is having early satiety and a lack of appetite. However on initial lab work even though she was complaining of chest pain her troponin was obtained which was elevated to almost 4. Cardiology was consulted they ordered aspirin and a heparin bolus and took her straight for cardiac cath after they obtained a n echo which showed an EF of 20 to 25% with hypokinesis. She underwent a cardiac cath which demonstrated normal coronary arteries, therefore this was likely a issue with her Takotsubo cardiomyopathy. Prior to her cath she did have an NG tube placed. EKG showed initially was read as a STEMI however there was no any significant ST elevations in lead I or aVL. Past Medical History Past Medical History (Chronic Problems): Chronic Problems History of left heart catheterization (Chronic 06/25/19) Non obstructive coronary arteries Cardiomyopathy: Takotsubo by echo; LV gram not done due to CRI. per SUGAR @ [facility] 06/25/2019 Restless leg syndrome (Chronic) Insomnia (Chronic) Tinea corporis (Chronic) Diaphragmatic hernia (Chronic) Diabetes mellitus (Chronic) Coronary artery disease (Chronic) Obesity (Chronic) GERD (gastroesophageal reflux disease) (Chronic) Hx of appendectomy (Chronic) Benign essential HTN (Chronic) Depression (Chronic) HLD (hyperlipidemia) (Chronic) Overweight (BMI 25.0-29.9) (Chronic) CAD (coronary artery disease) (Chronic) Diabetes mellitus, type II (Chronic) Hyponatremia (Chronic) also has chronic mild hyponatremia Traumatic closed nondisplaced fracture of neck of left femur (Chronic) Status post closed reduction with internal fixation (Chronic) left femur 06/22, Dr Spears, [facility] Tinea unguium (Chronic) Dyskinesia, tardive (Chronic) Brain aneurysm (Chronic) Hypertension (Chronic) Diabetic neuropathy (Chronic) Allergies hydrocodone [From [place]] Adverse Reaction (Verified 06/25/19 08:45) Nausea sulfamethoxazole [From Bactrim] Adverse Reaction (Verified 06/25/19 08:45) Nausea trimethoprim [From Bactrim] Adverse Reaction (Verified 06/25/19 08:45) Nausea Home Medications: Ambulatory Orders Medication Instructions Recorded Clonidine HCl [Catapres] 0.5 tab PO BID 03/23/19 Doxepin HCl [Sinequan] 25 mg PO QHS PRN 03/23/19 Fluoxetine HCl [Prozac] 60 mg PO DAILY 03/23/19 Furosemide [Lasix] 40 mg PO DAILY 03/23/19 Lorazepam [Ativan] 1 mg PO BID PRN 03/23/19 Losartan Potassium [Cozaar] 50 mg PO QHS 03/23/19 Minoxidil [Loniten] 2.5 mg PO BID 03/23/19 Mirtazapine [Remeron] 30 mg PO QHS 03/23/19 Oxybutynin [Ditropan] 5 mg PO BID 03/23/19 Pantoprazole Sodium 20 mg PO QHS 03/23/19 Pramipexole Di-HCl [Pramipexole 0.75 mg PO QHS 03/23/19 Dihydrochloride] Promethazine HCl 25 mg PO Q6H PRN PRN 03/23/19 Simvastatin [Zocor] 40 mg PO QHS 03/23/19 Spironolactone [Aldactone] 25 mg PO DAILY 03/23/19 Aspirin 81 mg PO DAILY 06/25/19 Polyethylene Glycol 3350 [Miralax] 17 gm PO QHS 06/25/19 Senna [Senokot] 2 tab PO QHS 06/25/19 Surgical History: Surgical History (Last Updated 06/25/19 @ 17:17 by Eunice Davis) History of left heart catheterization (Chronic) Onset Date: 06/25/19 Z98.890 Non obstructive coronary arteries Cardiomyopathy: Takotsubo by echo; LV gram not done due to CRI. 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 Denies: Chills, Fever HEENT: Denies: Head Aches, Sinus Congestion, Sinus Drainage Cardiovascular: Denies: Chest Pain, Palpitations Respiratory: Denies: Cough, Shortness of breath at rest, Sputum production Gastrointestinal: Reports: Abdominal Pain, Diarrhea, Nausea, Vomiting Genitourinary: Denies: Dysuria Musculoskeletal: Denies: Joint Pain, Joint Tenderness Skin: Denies: Rash, Wounds Neurological: Denies: Numbness, Tingling, Focal weakness Psychiatric: Denies: Anxiety, Depression Hematologic/ Lymphatic: Denies: Easy Bruising, Easy Bleeding VTE Information - Inpt Only VTE Present on Admission: No Patient Problems: Active and Suspected Problems Non-STEMI (non-ST elevated myocardial infarction) (Acute) - Physical Exam General: Alert, Oriented x3, Cooperative, No apparent distress HEENT: Atraumatic, PERRLA, EOMI, Normocephalic, - - NG tube in place Oral: Dry Mucosa Neck: Supple, No JVD Lungs: Clear to auscultation, Normal air movement, No rhonchi, No wheeze, No rales Cardiovascular: Regular rate, Regular Rhythm, Normal S1, Normal S2, No murmurs Abdomen: Soft, Non Tender, Non-Distended, No Hepato-splenomegaly Extremities: Capillary Refill Less than 3 Seconds, Edema - 1+ nonpitting edema Skin: No rashes, No breakdown Neurological: Neuro grossly intact, Sensory exam intact to light touch and pain, - - Chronic upper extremity and head tremor Psych/Mental Status: Normal Affect, Appropriate Vital Signs Temp Pulse Resp BP Pulse Ox 99.5 F H 88 18 89/58 L 96 06/25/19 15:30 06/25/19 16:15 06/25/19 16:15 06/25/19 16:15 06/25/19 16:15 Oxygen Flow Rate (L/min) 2 Oxygen Delivery Method Nasal Cannula Weight: 135 lb 4.8 oz Body Mass Index (BMI) 23.9 Finger Stick Blood Glucose 176 Intake and Output for Last 24 Hours 06/23/19 06/24/19 06/25/19 23:59 23:59 23:59 Intake Total 1000 / 1000 Balance 1000 / 1000 Laboratory Tests Past 24 Hrs 06/25/19 06/25/19 06/25/19 09:25 09:25 09:25 WBC 10.2 RBC 4.21 Hgb 12.9 Hct 39.0 MCV 92.6 MCH 30.6 MCHC 33.1 RDW Std Deviation 41.4 RDW Coeff of Dang 12.3 Plt Count 249 MPV 9.2 Immature Gran % (Auto) 0.400 Neut % (Auto) 86.9 H Lymph % (Auto) 9.4 L [place] % (Auto) 1.8 Eos % (Auto) 1.1 Baso % (Auto) 0.4 Absolute Neuts (auto) 8.9 H Absolute Lymphs (auto) 0.96 Nucleated RBC % 0 Sodium 137 Potassium 3.8 Chloride 102 Carbon Dioxide 30.0 Anion Gap 5 BUN 23 H Creatinine 1.42 H Estim Creat Clear Calc 26.14 Est GFR (MDRD) Af Amer 46 L Est GFR (MDRD) Non-Af 38 L BUN/Creatinine Ratio 16.2 Glucose 139 H Lactic Acid 1.3 Calcium 9.5 Total Bilirubin 0.30 AST 24 ALT 17 Alkaline Phosphatase 148 H Troponin I 3.970 H* Total Protein 7.8 Albumin 3.8 Globulin 4.0 Albumin/Globulin Ratio 1.0 Lipase 123 Urine Color Urine Clarity Urine pH Ur Specific [place] Urine Protein Urine Glucose (UA) Urine Ketones Urine Occult Blood Urine Nitrite Urine Bilirubin Urine Urobilinogen Ur Leukocyte Esterase Urine RBC Urine WBC Ur Squamous Epith Cells Urine Bacteria Urine Mucus 06/25/19 10:05 WBC RBC Hgb Hct MCV MCH MCHC RDW Std Deviation RDW Coeff of Dang Plt Count MPV Immature Gran % (Auto) Neut % (Auto) Lymph % (Auto) [place] % (Auto) Eos % (Auto) Baso % (Auto) Absolute Neuts (auto) Absolute Lymphs (auto) Nucleated RBC % Sodium Potassium Chloride Carbon Dioxide Anion Gap BUN Creatinine Estim Creat Clear Calc Est GFR (MDRD) Af Amer Est GFR (MDRD) Non-Af BUN/Creatinine Ratio Glucose Lactic Acid Calcium Total Bilirubin AST ALT Alkaline Phosphatase Troponin I Total Protein Albumin Globulin Albumin/Globulin Ratio Lipase Urine Color Yellow Urine Clarity Clear Urine pH 8.0 Ur Specific [place] 1.010 Urine Protein 30 H Urine Glucose (UA) Normal Urine Ketones 15 H Urine Occult Blood 10 H Urine Nitrite Positive H Urine Bilirubin Negative Urine Urobilinogen Normal Ur Leukocyte Esterase 25 H Urine RBC 0 SEEN Urine WBC 0-5 SEEN Ur Squamous Epith Cells 0 SEEN Urine Bacteria 0 SEEN Urine Mucus 0 SEEN Assessment/Plan All Active Problems Non-STEMI (non-ST elevated myocardial infarction) (Acute) Encephalopathy (Resolved) UTI (urinary tract infection) (Resolved) Lower respiratory infection (Acute) Acute hypoxic respiratory insufficiency (Acute) Possible COPD exacerbation (Ruled-out) Confusion (Resolved) Influenza (Resolved) Takotsubo syndrome (Resolved) Gastroenteritis (Resolved) Hypoxia (Acute) Generalized weakness (Resolved) Abdominal pain (Resolved) Diarrhea (Resolved) 1. NSTEMI/Takotsubo cardiomyopathy/HTN/HLD -EF is 2025% on echo -The cath with normal coronary arteries -Appreciate cardiology assistance -Currently n.p.o. but when she can take p.o. we will restart her home medications 2. Diaphragmatic hernia with possible gastric outlet obstruction -Continue with gentle IV fluids -NG tube in place -Do not seem to be any distended loops of small bowel to consider this a small bowel obstruction on CT scan -An upper GI series to evaluate gastric outlet obstruction, given her weight loss has been unintentional over the last 7 8 months, and her early satiety and lack of appetite I am concerned for a gastric mass. If the upper GI does not show anything she may need an EGD for further characterization. Will consult general surgery in the morning -She was given Remeron as an outpatient for her loss of appetite, however she has not been taking it for about the last week and a half. 3. Depression/anxiety -Stable -Continue with doxepin, Prozac, Ativan, Remeron 4. GERD -Stable -Continue with PPI DVT: Heparin CODE STATUS: full Code Visit Inpatient E&M: 54566 Init Hosp L3
[2019-06-25] MEDS: Heparin Injection (Vial) 5,000 UNIT/ML VIAL 5000 UNIT SC (22:27)
[2019-06-25] MEDS: LORazepam 2 MG/ML Syringe 1 MG IV (22:46)
[2019-06-25] MEDS: 0.9% NaCl Peripheral Flush Adult/Peds IV (22:46)
[2019-06-26] VITALS (14 sets, daily range): BP systolic 86–105; BP diastolic 46–66; PULSE 72–96; RESP 16–20; TEMP 36.6–37.3; O2SAT 91–96
[2019-06-26] MEDS: Ondansetron 4 MG/2 ML Vial IV (01:03)
[2019-06-26] MEDS: 0.9% NaCl Peripheral Flush Adult/Peds IV ×2 (01:03→05:42)
[2019-06-26] MEDS: 0.9% Normal Saline 1,000 ML 100 ML IV (01:41)
[2019-06-26] MEDS: Acetaminophen 650 MG Suppository RECTAL (03:32)
[2019-06-26] MEDS: Heparin Injection (Vial) 5,000 UNIT/ML VIAL 5000 UNIT SC (05:41)
[2019-06-26] MEDS: LORazepam 2 MG/ML Syringe 1 MG IV ×3 (05:42→21:44)
--- NOTE | 2019-06-26 05:55 | RAD_ITS ---
STUDY: UPPER GI SERIES. REASON FOR EXAM: Female, 78 years old. Nausea and vomiting. FLUOROSCOPY TIME (if supplied): ( 67 seconds ) minutes/seconds. 16 images were obtained. TECHNIQUE: The patient ingested barium. Multiple images were obtained. COMPARISON: None. FINDINGS: A nasogastric tube is seen with the tip at the gastroesophageal junction. The patient ingested barium. There is a distention of the stomach. There is evidence of a gastric outlet obstruction in the region of the pylorus. RAD/Upper GI Series Only IMPRESSION: Findings incomplete with gastric outlet obstruction at the level of the pylorus. Electronically Signed: Fan Benavidez, at 10:56 EDT , Service support ,
[2019-06-26 06:30] LABS: Absolute Lymphocyte Count 0.85 X10^3/uL (0.83-4.51); Absolute Neutrophil Count 12.2 X10^3/uL (2.0-7.7); Basophil# 0.01 X10^3/uL; Basophil% 0.1 % (0-1); Hematocrit 36.9 % (37-47); Hemoglobin 11.7 g/dL (12.0-15.0); Lymphocyte # 0.85 X10^3/ul (4.0); Lymphocyte % 6.2 % (19-41); Mean Corp Hgb Conc 31.7 g/dL (32-36); Mean Corpuscular Hgb 29.9 pg (27.0-32.0); Mean Corpuscular Volume 94.4 fL (81-99); Mean Platelet Vol. 8.8 fl (6.2-12.0); Monocyte# 0.62 X10^3/uL; Monocyte% 4.5 % (0-10); NRBC Flagged by Analyzer 0 % (0-5); Neutrophil # 12.23 X10^3/uL (2.7-7.7); Neutrophil % 88.8 % (47-70); Platelet Count 218 K/mm3 (150-450); RBC Distribution Width CV 12.6 % (11.6-14.6); RBC Distribution Width SD 43.6 fl (35.1-43.9); Red Blood Count 3.91 M/mm3 (4.2-5.4); White Blood Count 13.8 K/mm3 (4.4-11.0)
[2019-06-26 06:52] LABS: Anion Gap 4 (5-15); BUN 20 mg/dL (7-18); BUN/Creat Ratio 16.9 RATIO (10-20); Calcium,Total 8.9 mg/dL (8.5-10.1); Chloride 108 mmol/L (98-107); Creatinine, Serum 1.18 mg/dL (0.55-1.02); EST Glomerular Filtration Rate 47 mL/min (>60); Est Glom Filt Rate - Afr Amer 57 mL/min (>60); Estimated Creatinine Clearance 31.45 ml/min; Glucose 127 mg/dL (74-106); Potassium 3.7 mmol/L (3.5-5.1); Sodium Level 140 mmol/L (136-145)
--- NOTE | 2019-06-26 08:48 | PCM.PN.CARD ---
Subjectve: Patient seen and examined this morning, reports feeling better, no chest pain or angina. He will dynamically stable however still remains somewhat hypotensive with systolic pressures between 90 and 100. Telemetry negative. Objective: Vital Signs Temp Pulse Resp BP Pulse Ox 98.8 F 92 18 105/46 L 93 06/26/19 08:15 06/26/19 08:15 06/26/19 08:15 06/26/19 08:15 06/26/19 08:15 Oxygen Flow Rate (L/min) 3 Oxygen Delivery Method Nasal Cannula Weight: 135 lb 4.8 oz Body Mass Index (BMI) 23.9 Finger Stick Blood Glucose 176 Intake and Output for Last 24 Hours 06/24/19 06/25/19 06/26/19 23:59 23:59 23:59 Intake Total 1790 / 1790 865.01 / 865.01 Output Total 950 / 950 350 / 350 Balance 840 / 840 515.01 / 515.01 General: Awake, Alert, Oriented x 3 HEENT: PERRL, EOMI, Sclera Non Icteric Neck: Supple, Good ROM, No Lymph Node Enlargement Lungs: Clear to auscultation Cardiovascular: Regular Rhythm, Normal S1, Normal S2, No Murmurs, No Rubs, No Gallops Vascular: No Carotid Bruits, Normal Femoral Pulses, Normal Radial Pulses, Normal Dorsalis Pedal Pulse, Normal Posterior Tibial Pulses Abdomen: Bowel Sounds Present, Soft, Non Tender, No HSM, No Organomegaly Extremities: No Cyanosis, No Clubbing, No edema Neurological: No Focal Motor or Sensory Deficit 06/25/19 09:25: WBC 10.2, RBC 4.21, Hgb 12.9, Hct 39.0, MCV 92.6, MCH 30.6, MCHC 33.1, Plt Count 249, MPV 9.2, Immature Gran % (Auto) 0.400, Neut % (Auto) 86.9 H, Lymph % (Auto) 9.4 L, [place] % (Auto) 1.8, Eos % (Auto) 1.1, Baso % (Auto) 0.4, Absolute Neuts (auto) 8.9 H, Nucleated RBC % 0 06/25/19 09:25: Sodium 137, Potassium 3.8, Chloride 102, Carbon Dioxide 30.0, Anion Gap 5, BUN 23 H, Creatinine 1.42 H, Est GFR (MDRD) Af Amer 46 L, Est GFR (MDRD) Non-Af 38 L, BUN/Creatinine Ratio 16.2, Glucose 139 H, Calcium 9.5, Total Bilirubin 0.30, Troponin I 3.970 H* 06/25/19 09:25: Lactic Acid 1.3 06/25/19 10:05: Urine Color Yellow, Urine Clarity Clear, Urine pH 8.0, Ur Specific [place] 1.010, Urine Protein 30 H, Urine Glucose (UA) Normal, Urine Ketones 15 H, Urine Occult Blood 10 H, Urine Nitrite Positive H, Urine Bilirubin Negative, Urine Urobilinogen Normal, Ur Leukocyte Esterase 25 H, Urine RBC 0 SEEN, Urine WBC 0-5 SEEN 06/26/19 06:10: WBC 13.8 H, RBC 3.91 L, Hgb 11.7 L, Hct 36.9 L, MCV 94.4, MCH 29.9, MCHC 31.7 L, Plt Count 218, MPV 8.8, Immature Gran % (Auto) 0.400, Neut % (Auto) 88.8 H, Lymph % (Auto) 6.2 L, [place] % (Auto) 4.5, Eos % (Auto) 0.0, Baso % (Auto) 0.1, Absolute Neuts (auto) 12.2 H, Nucleated RBC % 0 06/26/19 06:10: Sodium 140, Potassium 3.7, Chloride 108 H, Carbon Dioxide 28.0, Anion Gap 4 L, BUN 20 H, Creatinine 1.18 H, Est GFR (MDRD) Af Amer 57 L, Est GFR (MDRD) Non-Af 47 L, BUN/Creatinine Ratio 16.9, Glucose 127 H, Calcium 8.9 Rhythm: EKG: ECHO: Stress Test: Cardiac Cath: PCI: CT Surgery: Holter monitor: EPS: PPM: CXR: Chest CT Scan: Medical Necessity - Tobacco Use Smoking Status: Former smoker Tobacco Use: Cigarettes Assessment/Plan 1. Abnormal troponin: The patient has an abnormal troponin of 3.9, superimposed on what appears to be acute LV dysfunction consistent with acute cardiomyopathy, possibly due to talk at Kuldip cardiomyopathy. Echocardiogram shows an EF of 25% reduced from 75% in 2018. In addition her EKG shows normal sinus rhythm with what appears to be lateral ST segment J-point elevation/ST elevation. However, the patient has no anginal symptoms now or in the recent past. Given the patient's age, abnormal EKG, abnormal echo, abnormal troponins, and the possible need for urgent surgical correction of what may be a small bowel obstruction at an unknown time in the future, I recommended the patient undergo an urgent left heart catheterization, coronary angiogram, and LV pressures. We held off on doing an LV gram given her echocardiogram already shows severe LV dysfunction, and with respect to her chronic renal insufficiency. Cardiac catheterization done urgently yesterday demonstrated nonobstructive coronary artery disease, no critical lesions which require further evaluation, no LV gram was performed out of concern for her creatinine and possible need for additional IV contrast dye to evaluate her abdominal hiatal hernia and possible surgical correction. Copies of the catheterization echocardiogram were placed in the patient's chart for possible transfer to an outside tertiary care facility should this be indicated. After speaking with Dr. balbuena as this morning, patient will be evaluated by general surgery, Dr. Lambert, possibly undergo a CT scan with oral and IV contrast to better evaluate her gastric outlet obstruction. At this point given her hypotension, I would hold off on antihypertensive therapy or beta-blockers at this time. Once her MEP remains above 60, or her systolic pressure remains above 100, we will start Coreg 3.125 mg p.o. twice daily. Would not recommend ALAN inhibitors or ARB is given her chronic renal insufficiency. 2. LV dysfunction: Given the patient's hypotension, we will hold off on antihypertensive therapy at this time. The patient will require beta-carlton therapy lifelong once her condition has stabilized and she is able to take p.o. medications. We can substitute IV beta-carlton in the meantime. If the patient has recurrent tachycardia Lakisha Kuldip cardiomyopathy, it may take between 2 and 4 weeks for her LV function to normalize. If any surgery is required, would hopefully be able to wait at least that long so that her LV function may improve prior to what may be a very large surgery. Would recommend continuing beta-blockers through surgery if indicated to avoid recurrence of her Takostubos. 3. Small bowel obstruction: Patient is gained a significant amount of relief with NG tube placement and removal of GI contents. Patient aspirated at least 1 L in the Bullet Slugs Inspector and additional liter on the floor. Recommend judicious use of IV fluids to avoid pulmonary edema. Recommend D5 0.45 at 75 cc/h. The patient may require hyperalimentation. 4. Thank you very much for the opportunity to participate in the cardiac care of your patient. Code Visit Inpatient E&M: 01840 Subs Hosp L2
--- NOTE | 2019-06-26 11:17 | PCM.CONS.GEN ---
Reason for Consult Date of Consultation: 06/26/19 History of Present Illness: The patient is a 78 year old F presented to the ER due to weakness labs did show a positive troponin 3.9 patient was taken for left heart cath which decreased ejection fraction otherwise no obvious lesions, patient does have Takotsubo and her current ejection fraction is 25% down from 75%. His current blood pressure systolically is in the 90s. Patient does have a history of diaphragmatic hernia patient states that since . Patient is unsure if she is ever had an EGD does states she had a colonoscopy thought maybe 4 or 5 years ago. Patient states that since September she has been having weight loss about 70 pounds (she says she was 200 lbs) she states that she just is not that hungry she does occasionally have nausea and vomiting per the patient. She states she does have bowel function daily denies any blood. CT abdomen pelvis does show an enlarged stomach with the distal stomach and the hernia. Patient had an NG placed with put out over a liter. Upper GI showed a outlet obstruction at the hernia. Pt was seen at [facility] about 1-2 years ago and per son Dr. Pretty said that surgery would be long and risky but could be done. Past Medical History Past Medical History (Chronic Problems): Chronic Problems History of left heart catheterization (Chronic 06/25/19) Non obstructive coronary arteries Cardiomyopathy: Takotsubo by echo; LV gram not done due to CRI. per SUGAR @ [facility] 06/25/2019 Restless leg syndrome (Chronic) Insomnia (Chronic) Tinea corporis (Chronic) Diaphragmatic hernia (Chronic) Diabetes mellitus (Chronic) Coronary artery disease (Chronic) Obesity (Chronic) GERD (gastroesophageal reflux disease) (Chronic) Hx of appendectomy (Chronic) Benign essential HTN (Chronic) Depression (Chronic) HLD (hyperlipidemia) (Chronic) Overweight (BMI 25.0-29.9) (Chronic) CAD (coronary artery disease) (Chronic) Diabetes mellitus, type II (Chronic) Hyponatremia (Chronic) also has chronic mild hyponatremia Traumatic closed nondisplaced fracture of neck of left femur (Chronic) Status post closed reduction with internal fixation (Chronic) left femur 06/22, Dr Spears, [facility] Tinea unguium (Chronic) Dyskinesia, tardive (Chronic) Brain aneurysm (Chronic) Hypertension (Chronic) Diabetic neuropathy (Chronic) Allergies hydrocodone [From [place]] Adverse Reaction (Verified 06/25/19 08:45) Nausea sulfamethoxazole [From Bactrim] Adverse Reaction (Verified 06/25/19 08:45) Nausea trimethoprim [From Bactrim] Adverse Reaction (Verified 06/25/19 08:45) Nausea Home Medications: Ambulatory Orders Medication Instructions Recorded Clonidine HCl [Catapres] 0.5 tab PO BID 03/23/19 Doxepin HCl [Sinequan] 25 mg PO QHS PRN 03/23/19 Fluoxetine HCl [Prozac] 60 mg PO DAILY 03/23/19 Furosemide [Lasix] 40 mg PO DAILY 03/23/19 Lorazepam [Ativan] 1 mg PO BID PRN 03/23/19 Losartan Potassium [Cozaar] 50 mg PO QHS 03/23/19 Minoxidil [Loniten] 2.5 mg PO BID 03/23/19 Mirtazapine [Remeron] 30 mg PO QHS 03/23/19 Oxybutynin [Ditropan] 5 mg PO BID 03/23/19 Pantoprazole Sodium 20 mg PO QHS 03/23/19 Pramipexole Di-HCl [Pramipexole 0.75 mg PO QHS 03/23/19 Dihydrochloride] Promethazine HCl 25 mg PO Q6H PRN PRN 03/23/19 Simvastatin [Zocor] 40 mg PO QHS 03/23/19 Spironolactone [Aldactone] 25 mg PO DAILY 03/23/19 Aspirin 81 mg PO DAILY 06/25/19 Polyethylene Glycol 3350 [Miralax] 17 gm PO QHS 06/25/19 Senna [Senokot] 2 tab PO QHS 06/25/19 Surgical History: Surgical History (Last Updated 06/25/19 @ 17:17 by Eunice Davis) History of left heart catheterization (Chronic) Onset Date: 06/25/19 Z98.890 Non obstructive coronary arteries Cardiomyopathy: Takotsubo by echo; LV gram not done due to CRI. per [facility]GAR @ [facility] 06/25/2019 Surgical History: appendectomy, cholecystectomy, herniorrhaphy, tonsillectomy, - - 06/22/15 left hip CRIF Psychiatric History: Anxiety, Depression INTERLOCKER History: No pertinent INTERLOCKER history Smoking Status: Former smoker Tobacco Use: Cigarettes Alcohol: None Drugs: None - *Family History Maternal History Items: Cancer - age 55, colon Paternal History Items: Cancer - in 's metastatic prostate Offspring History Items: - - 2 children Review of Systems Constitutional: Reports: Anorexia HEENT: Denies: Difficulty Swallowing Cardiovascular: Denies: Chest Pain Respiratory: Denies: Shortness of breath at rest Gastrointestinal: Denies: Abdominal Pain Genitourinary: Denies: Dysuria Skin: Denies: Rash Psychiatric: Denies: Anxiety Hematologic/ Lymphatic: Denies: Easy Bleeding Patient Problems: Active and Suspected Problems Non-STEMI (non-ST elevated myocardial infarction) (Acute) - Physical Exam General: Alert, Cooperative, No apparent distress Oral: Dry Mucosa Lungs: Normal air movement Cardiovascular: Regular rate Abdomen: Soft, Non Tender, Non-Distended Extremities: Edema Skin: No rashes Psych/Mental Status: Appropriate Vital Signs Temp Pulse Resp BP Pulse Ox 98.8 F 87 16 89/58 L 94 06/26/19 10:15 06/26/19 10:15 06/26/19 10:15 06/26/19 10:15 06/26/19 10:15 Oxygen Flow Rate (L/min) 2 Oxygen Delivery Method Nasal Cannula Weight: 135 lb 4.8 oz Body Mass Index (BMI) 23.9 Finger Stick Blood Glucose 176 Intake and Output for Last 24 Hours 06/24/19 06/25/19 06/26/19 23:59 23:59 23:59 Intake Total 1790 / 1790 865.01 / 865.01 Output Total 950 / 950 350 / 350 Balance 840 / 840 515.01 / 515.01 Laboratory Tests Past 24 Hrs 06/26/19 06/26/19 06:10 06:10 WBC 13.8 H RBC 3.91 L Hgb 11.7 L Hct 36.9 L MCV 94.4 MCH 29.9 MCHC 31.7 L RDW Std Deviation 43.6 RDW Coeff of Dang 12.6 Plt Count 218 MPV 8.8 Immature Gran % (Auto) 0.400 Neut % (Auto) 88.8 H Lymph % (Auto) 6.2 L Dale % (Auto) 4.5 Eos % (Auto) 0.0 Baso % (Auto) 0.1 Absolute Neuts (auto) 12.2 H Absolute Lymphs (auto) 0.85 Nucleated RBC % 0 Sodium 140 Potassium 3.7 Chloride 108 H Carbon Dioxide 28.0 Anion Gap 4 L BUN 20 H Creatinine 1.18 H Estim Creat Clear Calc 31.45 Est GFR (MDRD) Af Amer 57 L Est GFR (MDRD) Non-Af 47 L BUN/Creatinine Ratio 16.9 Glucose 127 H Calcium 8.9 Assessment/Plan All Active Problems Non-STEMI (non-ST elevated myocardial infarction) (Acute) Encephalopathy (Resolved) UTI (urinary tract infection) (Resolved) Lower respiratory infection (Acute) Acute hypoxic respiratory insufficiency (Acute) Possible COPD exacerbation (Ruled-out) Confusion (Resolved) Influenza (Resolved) Takotsubo syndrome (Resolved) Gastroenteritis (Resolved) Hypoxia (Acute) Generalized weakness (Resolved) Abdominal pain (Resolved) Diarrhea (Resolved) 78 y/o F with large diaphragmatic hernia with gastric outlet obstruction likely due to hernia, hypotension, EF 25% new previous Patient previously has only been told that they could do her diaphragmatic hernia surgery at [facility] but it would be very risky. Currently patient is hypotensive and ejection fraction is less than 25% she is not a surgical candidate at this point but it does appear that, her hernia is causing this gastric outlet obstruction and doing an EGD would not change this and again put her at risk for possible aspiration. Did try to get a hold of the son however voicemail? will try later. When patient was asked if she would want surgery she shook her head, as it considered risky 1-2 years ago at [facility] per pt. Patient may be a better candidate for palliative care/hospice. ;Addendum; 11:55am: discussed above /w pt's son, Kalia. He was interested in hospice. d/w Dr. Radha Trinidad M.D. Pager: [phone] [facility] [address] [place] [address], Outpatient [place], [address] [place] [address] Office: [phone] Code Visit Inpatient E&M: 54241 Init Hosp L2
--- NOTE | 2019-06-26 14:20 | CASEMGMT ---
A referral was put in for Hospice. SW spoke with patient and her son. Introduced self and role at [facility]. SW offered them a list of Hospice agencies. They wanted [facility]. SW explained SW will make a referral and they will call him to set up a time to meet. SW called [facility] with referral as well as faxed referral. Bridgette NESS MSW
--- NOTE | 2019-06-26 14:32 | CHAPLAIN ---
Type of Pastoral Visit _x__ Initial Visit ___ Follow-up Visit ___ On-call Visit ___ General Patient Visit ___ Spiritual Assessment ___ Family Conference ___ Bereavement ___ Rapid Response ___ Code Blue ___ Other (describe below) Pastoral Care Referral From _x__ Patient _x__ Family _x__ Nurse ___ Physician ___ Software Licensing Executive ___ Professor Of Public Administration ___ Other (describe below) Sacrament/Intervention _x__ Active listening ___ Anointing ___ Advent ___ Bereavement ___ Communion _x__ Sarah exploration ___ ___ Life review _x__ Prayer ___ Reconciliation ___ Sacrament of Sick _x__ Supportive presence ___ Wedding ___ Other (describe below) Pastoral Comments this knockout worker was alerted to new situation with patient that hospice is being consulted and that son is having a difficult time emotionally; offered support for pt and for her son; son requests spiritual care;
--- NOTE | 2019-06-26 14:39 | CASEMGMT ---
EMELIA received a return call from Elaine at Hospice and she said that they will be meeting with patient and her son between 4 and 430 today. Bridgette NESS MSW
[2019-06-26] MEDS: 0.9% Normal Saline 1,000 ML 75 ML IV (15:35)
--- NOTE | 2019-06-26 16:34 | PCM.PN.HOSP ---
Patient Problems: Active and Suspected Problems Non-STEMI (non-ST elevated myocardial infarction) (Acute) Subjective: Feeling better since she has had the NG tube placed. Last night she did have some anxiety and pain and her Ativan was started IV. Vitals/I&O's: Vital Signs Temp Pulse Resp BP Pulse Ox 98.8 F 72 16 99/50 L 95 06/26/19 16:00 06/26/19 16:00 06/26/19 16:00 06/26/19 16:00 06/26/19 16:00 Oxygen Flow Rate (L/min) 2 Oxygen Delivery Method Nasal Cannula Weight: 135 lb 4.763 oz Body Mass Index (BMI) 23.9 Finger Stick Blood Glucose 176 Intake and Output for Last 24 Hours 06/24/19 06/25/19 06/26/19 23:59 23:59 23:59 Intake Total 1790 / 1790 1286.67 / 1286.67 Output Total 950 / 950 650 / 650 Balance 840 / 840 636.67 / 636.67 General: Alert, Oriented x3, Cooperative, No apparent distress HEENT: Atraumatic, PERRLA, EOMI, Normocephalic, - - NG tube in place Oral: Dry Mucosa Neck: Supple, No JVD Lungs: Clear to auscultation, Normal air movement, No rhonchi, No wheeze, No rales Cardiovascular: Regular rate, Regular Rhythm, Normal S1, Normal S2, No murmurs Abdomen: Soft, Non Tender, Non-Distended, No Hepato-splenomegaly Extremities: Capillary Refill Less than 3 Seconds, Edema - 1+ nonpitting edema Skin: No rashes, No breakdown Neurological: Neuro grossly intact, Sensory exam intact to light touch and pain, - - Chronic upper extremity and head tremor Psych/Mental Status: Normal Affect, Appropriate Laboratory Results 06/26/19 06:10: WBC 13.8 H, RBC 3.91 L, Hgb 11.7 L, Hct 36.9 L, MCV 94.4, MCH 29.9, MCHC 31.7 L, RDW Std Deviation 43.6, RDW Coeff of Dang 12.6, Plt Count 218, MPV 8.8, Immature Gran % (Auto) 0.400, Neut % (Auto) 88.8 H, Lymph % (Auto) 6.2 L, [place] % (Auto) 4.5, Eos % (Auto) 0.0, Baso % (Auto) 0.1, Absolute Neuts (auto) 12.2 H, Absolute Lymphs (auto) 0.85, Nucleated RBC % 0 06/26/19 06:10: Sodium 140, Potassium 3.7, Chloride 108 H, Carbon Dioxide 28.0, Anion Gap 4 L, BUN 20 H, Creatinine 1.18 H, Estim Creat Clear Calc 31.45, Est GFR (MDRD) Af Amer 57 L, Est GFR (MDRD) Non-Af 47 L, BUN/Creatinine Ratio 16.9, Glucose 127 H, Calcium 8.9 Current Medications Acetaminophen (Tylenol) 650 mg RECTAL Q6H PRN PRN PRN Reason: pain Last Admin: 06/26/19 03:32 Dose: 650 mg Documented by: Heparin Sodium (Beef Lung) (Heparin 500 Unit/5 Ml (100/Ml)) 500 unit IV UD PRN PRN Reason: HEPARIN FLUSH Heparin Sodium (Porcine) (Heparin Na) 5,000 unit SC Q8 AP Last Admin: 06/26/19 14:08 Dose: Not Given Documented by: Sodium Chloride () 1,000 mls @ 75 mls/hr IV .[id number] AP Last Admin: 06/26/19 15:35 Dose: 75 mls/hr Documented by: Sodium Chloride () 250 mls @ 15 mls/hr IV .[id number] PRN PRN Reason: SALINE FLUSH Sodium Chloride () 500 mls @ 15 mls/hr IV .[id number] PRN PRN Reason: SALINE FLUSH Pantoprazole Sodium 40 mg/ (Sodium Chloride) 110 mls @ 330 mls/hr IV Q24 [facility] Last Infusion: 06/26/19 10:42 Dose: Infused Documented by: Labetalol HCl (Trandate) 5 mg IV X1 PRN PRN Reason: SBP > 160 prior to sheath pull Lorazepam (Ativan) 1 mg IV BID PRN PRN PRN Reason: ANXIETY Last Admin: 06/26/19 15:40 Dose: 1 mg Documented by: Ondansetron HCl (Zofran) 4 mg IV Q8H PRN PRN PRN Reason: NAUSEA/VOMITING Last Admin: 06/26/19 01:03 Dose: 4 mg Documented by: Phenol/Menthol (Chloraseptic (Bkc)) 3 spray MM Q2H PRN PRN PRN Reason: THROAT PAIN Sodium Chloride () 5 - 15 ml IV UD PRN PRN Reason: SALINE FLUSH Last Admin: 06/26/19 05:42 Dose: 10 ml Documented by: Medical Necessity - Tobacco Use Smoking Status: Former smoker Tobacco Use: Cigarettes Assessment/Plan All Active Problems Non-STEMI (non-ST elevated myocardial infarction) (Acute) Encephalopathy (Resolved) UTI (urinary tract infection) (Resolved) Lower respiratory infection (Acute) Acute hypoxic respiratory insufficiency (Acute) Possible COPD exacerbation (Ruled-out) Confusion (Resolved) Influenza (Resolved) Takotsubo syndrome (Resolved) Gastroenteritis (Resolved) Hypoxia (Acute) Generalized weakness (Resolved) Abdominal pain (Resolved) Diarrhea (Resolved) 1. Takotsubo cardiomyopathy/HTN/HLD -EF is 20-25% on echo -The cath with normal coronary arteries -Appreciate cardiology assistance -Currently n.p.o. 2. Diaphragmatic hernia with gastric outlet obstruction -Continue with gentle IV fluids -NG tube in place -GI demonstrated a gastric outlet obstruction but this was secondary to the fact that the duodenum has also moved into the chest and is being pinched. -She was given Remeron as an outpatient for her loss of appetite, however she has not been taking it for about the last week and a half. -Surgery states that there is nothing to do for her, there is nothing that an EGD would be beneficial for and the only other option besides hospice would be to go to [facility] to see if any surgeon there would operate on her. In discussing this with the son, he would like to discuss the case with hospice considering she was told about a year and a half ago when they are evaluate the [facility] they can possibly do surgery but there were a significant number of caveats to having a successful procedure. At that time they did not think she would do well with surgery. Now with her EF of 20 to 25% it is unlikely that she would do well for surgery. Spent 20 minutes talking about advanced care directives with both him and his mom, and the patient does understand was going on and understands hospice. 3. Depression/anxiety -Stable -Continue with doxepin, Prozac, Ativan, Remeron 4. GERD -Stable -Continue with PPI DVT: Heparin CODE STATUS: full Code Visit Inpatient E&M: 92955 Subs Hosp L2 Procedures: 42616 Advncd Care Plan 30 Min
[2019-06-27 02:00] VITALS: BP 98/61; PULSE 76; RESP 18; TEMP 36.7; O2SAT 93
[2019-06-27] MEDS: 0.9% Normal Saline 1,000 ML 75 ML IV (03:53)
[2019-06-27] MEDS: LORazepam 2 MG/ML Syringe 1 MG IV ×2 (06:05→08:24)
[2019-06-27 06:48] VITALS: BP 109/73; PULSE 84; RESP 18; TEMP 37; O2SAT 95
--- NOTE | 2019-06-27 07:21 | PCM.DC ---
- Discharge Diagnoses Current Active Problems: Current Active and Chronic Problems History of left heart catheterization (Chronic 06/25/19) Non obstructive coronary arteries Cardiomyopathy: Takotsubo by echo; LV gram not done due to CRI. per SUGAR @ [facility] 06/25/2019 Non-STEMI (non-ST elevated myocardial infarction) (Acute) You will use the following diet at home:: Clear liquid Your liquids should be the consistency of: Regular/Thin Discharge Activity: Return to Normal Activity Allergies/Adverse Reactions: Allergies hydrocodone [From [place]] Adverse Reaction (Verified 06/25/19 08:45) Nausea sulfamethoxazole [From Bactrim] Adverse Reaction (Verified 06/25/19 08:45) Nausea trimethoprim [From Bactrim] Adverse Reaction (Verified 06/25/19 08:45) Nausea Medications to take at Discharge Clonidine HCl [Catapres] 0.5 tab PO BID 03/23/19 Doxepin HCl [Sinequan] 25 mg PO QHS PRN 03/23/19 Fluoxetine HCl [Prozac] 60 mg PO DAILY 03/23/19 Furosemide [Lasix] 40 mg PO DAILY 03/23/19 Lorazepam [Ativan] 1 mg PO BID PRN 03/23/19 Losartan Potassium [Cozaar] 50 mg PO QHS 03/23/19 Minoxidil [Loniten] 2.5 mg PO BID 03/23/19 Mirtazapine [Remeron] 30 mg PO QHS 03/23/19 Oxybutynin [Ditropan] 5 mg PO BID 03/23/19 Pantoprazole Sodium 20 mg PO QHS 03/23/19 Pramipexole Di-HCl [Pramipexole Dihydrochloride] 0.75 mg PO QHS 03/23/19 Promethazine HCl 25 mg PO Q6H PRN PRN 03/23/19 Simvastatin [Zocor] 40 mg PO QHS 03/23/19 Spironolactone [Aldactone] 25 mg PO DAILY 03/23/19 Aspirin 81 mg PO DAILY 06/25/19 Polyethylene Glycol 3350 [Miralax] 17 gm PO QHS 06/25/19 Senna [Senokot] 2 tab PO QHS 06/25/19 Primary Care Physician: Jose L Valenzuela MD [Primary Care Provider] - Test Results: Test results from this visit will be discussed in further detail at your follow-up appointment, if applicable.
[2019-06-27 07:22] VITALS: O2SAT 95
[2019-06-27 08:13] VITALS: BP 90/61; PULSE 80; RESP 17; TEMP 36.7; O2SAT 94
[2019-06-27] MEDS: Phenol/Sodium Phenolate 180ML 3 SPRAY MM (10:07)
--- NOTE | 2019-06-27 10:27 | PCM.DC.SUM ---
Discharge Date and Diagnosis - Problem List Patient Problems: Active and Suspected Problems Non-STEMI (non-ST elevated myocardial infarction) (Acute) Date of Admission: 06/25/19 Date of Discharge: 06/27/19 - Primary Discharge Diagnosis Active and Suspected Problems Non-STEMI (non-ST elevated myocardial infarction) (Acute) - Secondary Discharge Diagnosis Chronic Problems History of left heart catheterization (Chronic 06/25/19) Non obstructive coronary arteries Cardiomyopathy: Takotsubo by echo; LV gram not done due to CRI. per SUGAR @ [facility] 06/25/2019 Restless leg syndrome (Chronic) Insomnia (Chronic) Tinea corporis (Chronic) Diaphragmatic hernia (Chronic) Diabetes mellitus (Chronic) Coronary artery disease (Chronic) Obesity (Chronic) GERD (gastroesophageal reflux disease) (Chronic) Hx of appendectomy (Chronic) Benign essential HTN (Chronic) Depression (Chronic) HLD (hyperlipidemia) (Chronic) Overweight (BMI 25.0-29.9) (Chronic) CAD (coronary artery disease) (Chronic) Diabetes mellitus, type II (Chronic) Hyponatremia (Chronic) also has chronic mild hyponatremia Traumatic closed nondisplaced fracture of neck of left femur (Chronic) Status post closed reduction with internal fixation (Chronic) left femur 06/22, Dr Spears, [facility] Tinea unguium (Chronic) Dyskinesia, tardive (Chronic) Brain aneurysm (Chronic) Hypertension (Chronic) Diabetic neuropathy (Chronic) Hospital Course and Treatment Imaging Results: CT Abd: IMPRESSION: Stable right diaphragmatic hernia. Distention of the stomach with fluid and residual food particles. Gastric outlet obstruction should be ruled out. Stable nonobstructive left renal calculus. Echo: Interpretation Summary Moderately dilated left ventricle. The estimated ejection fraction is 20-25 %. Stage 1 diastolic dysfunction. Mid-Anterior : Severely Hypokinetic. Mid-Lateral : Severely Hypokinetic. Anterior [place] : Akinetic. Inferior [place] : Akinetic. Mild (1+) mitral valve insufficiency. Mild (1+) tricuspid valve insufficiency. Right ventricular systolic pressure estimated to be 48 mmHg. Mild pulmonary hypertension. Mild (1+) aortic valve insufficiency. Trivial pericardial effusion. There are no echocardiographic indications of cardiac tamponade. Compared to echo report dated 10/20/2017, LV function has markedly deteriorated from 75% to 25% with probable Takostubo cardiomyopathy on today's exam. RVSP has remained about the same. Cardiac Cath: CONCLUSIONS Non obstructive coronary arteries Cardiomyopathy: Takotsubo by echo; LV gram not done due to CRI. RECOMMENDATIONS Management as per referring [employer] General surgery consult for severe hiatal hernia and bowel obstruction. Pt is at moderate risk for surgical intervention given acute LV dysfunction as a result of Takostubo's cardiomyopathy. Avoid aggressive fluid administration to avoid pulmonary edema. Manual sheath removal. D/w Dr Garcia. UGI: IMPRESSION: Findings incomplete with gastric outlet obstruction at the level of the pylorus. Operations: None Procedures: 2-D Echocardiogram, Cardiac catheterization Summary of Care Provided: Per HPI: The patient is a 78 year old F with a history of Takotsubo cardiomyopathy presented with acute onset nausea and vomiting with diarrhea. She states that yesterday she had lunch with her son at around 2 3 in the afternoon and was doing normal all day until midnight last night when she started having nausea and vomiting for most of the night. She came into the ER after calling her son, when symptoms continued into the morning and she was having some upper abdominal pain and she continued having feelings of nausea and vomiting as well as diarrhea which she describes as chunky. In the ER she had a CT scan of her abdomen and pelvis which demonstrated a large diaphragmatic hernia with have of her stomach in the chest cavity and the other have wrapped around the spleen. It appears to be very distended compared to her prior CT scan. She has had a diaphragmatic hernia for many years and has been told that it cannot be repaired anywhere other than [facility]. Also she states that she has been having unintentional weight loss of about 35 to 40 pounds since October, and she is having early satiety and a lack of appetite. However on initial lab work even though she was complaining of chest pain her troponin was obtained which was elevated to almost 4. Cardiology was consulted they ordered aspirin and a heparin bolus and took her straight for cardiac cath after they obtained an echo which showed an EF of 20 to 25% with hypokinesis. She underwent a cardiac cath which demonstrated normal coronary arteries, therefore this was likely a issue with her Takotsubo cardiomyopathy. Prior to her cath she did have an NG tube placed. EKG showed initially was read as a STEMI however there was no any significant ST elevations in lead I or aVL. Hospital Course: 1. Diaphragmatic hernia with gastric outlet obstruction-78 year-old female who presented to the hospital with nausea, vomiting, and some diarrhea was found to have an enlarged stomach and a CT scan was obtained in the ER of her abdomen which demonstrated probability of the gastric outlet obstruction. She had an NG tube placed and there was a liter of fluid out almost immediately, and then she had about another liter out a few hours later. She felt significantly better from her nausea standpoint after the NG tube was placed. An upper GI series was obtained for further characterization and this showed that her gastric outlet obstruction was secondary to compression of her duodenum up against her stomach at the level of the diaphragm. Initially there is concern for cancer, since she has had a 40 pound weight loss since October and early satiety as well as loss of appetite. General surgery was consulted and they felt that surgery was not advised at this time given her health and her comorbidities. Also she had this diaphragmatic hernia evaluated at [place] and in [place] and was told that this was nonoperable, and then had an opinion at [facility] about a year and a half ago that they would be willing to operate but there is significant caveats given her baseline health, and at that time they elected not to proceed with surgery. Now she has Takotsubo with an elevated troponin and an EF of 20 to 25%. In discussing the case with general surgery they also did not feel that an EGD would be of much benefit because it would not be able to reduce the hernia and that her best options were either going to be hospice versus an opinion at [facility]. They discussed amongst themselves as well as with hospice and felt that they did not want to proceed with surgery and therefore they requested a hospice consult. Hospice evaluated the patient and felt that she would qualify, and they request that she be discharged today for home hospice. Will leave the NG tube in place for comfort and allow her to eat and drink whatever she wants as long as its clear liquids or full liquid just so it can be removed by the NG area and I also discussed her CODE STATUS with her yesterday and explained the differences and she did agreed to be DNR CC. 2. Takotsubo cardiomyopathy/HTN/HLD-on admission she was complaining of any chest pain but she did have a troponin that was close to 4. She underwent a cardiac cath which demonstrated an EF of 20 to 25% and clean coronary arteries. It was felt at this time that she was likely Takotsubo cardiomyopathy and that it should slowly improve over the next couple weeks. 3. Her other medical diagnoses were evaluated and her home medications were continued where appropriate. I discussed with the family that they can either continue her home medications or discontinue all of her medications since she will be going home on hospice Patient Problems: Active and Suspected Problems Non-STEMI (non-ST elevated myocardial infarction) (Acute) Objective: General: Alert, Oriented x3, Cooperative, No apparent distress HEENT: Atraumatic, PERRLA, EOMI, Normocephalic, - - NG tube in place Oral: Dry Mucosa Neck: Supple, No JVD Lungs: Clear to auscultation, Normal air movement, No rhonchi, No wheeze, No rales Cardiovascular: Regular rate, Regular Rhythm, Normal S1, Normal S2, No murmurs Abdomen: Soft, Non Tender, Non-Distended, No Hepato-splenomegaly Extremities: Capillary Refill Less than 3 Seconds, Edema - 1+ nonpitting edema Skin: No rashes, No breakdown Neurological: Neuro grossly intact, Sensory exam intact to light touch and pain, - - Chronic upper extremity and head tremor Psych/Mental Status: Normal Affect, Appropriate - Physical Exam Vital Signs Temp Pulse Resp BP Pulse Ox 98.1 F 80 17 90/61 94 06/27/19 08:13 06/27/19 08:13 06/27/19 08:13 06/27/19 08:13 06/27/19 08:13 Oxygen Flow Rate (L/min) 2 Oxygen Delivery Method Nasal Cannula Weight: 135 lb 4.763 oz Body Mass Index (BMI) 23.9 Finger Stick Blood Glucose 176 Intake and Output for Last 24 Hours 06/25/19 06/26/19 06/27/19 23:59 23:59 23:59 Intake Total 1790 / 1790 2155.42 / 2155.42 533.75 / 533.75 Output Total 950 / 950 650 / 650 450 / 450 Balance 840 / 840 1505.42 / 1505.42 83.75 / 83.75 Discharge Activity: Return to Normal Activity Home Medications: Medications to take at Discharge Clonidine HCl [Catapres] 0.5 tab PO BID 03/23/19 Doxepin HCl [Sinequan] 25 mg PO QHS PRN 03/23/19 Fluoxetine HCl [Prozac] 60 mg PO DAILY 03/23/19 Furosemide [Lasix] 40 mg PO DAILY 03/23/19 Lorazepam [Ativan] 1 mg PO BID PRN 03/23/19 Losartan Potassium [Cozaar] 50 mg PO QHS 03/23/19 Minoxidil [Loniten] 2.5 mg PO BID 03/23/19 Mirtazapine [Remeron] 30 mg PO QHS 03/23/19 Oxybutynin [Ditropan] 5 mg PO BID 03/23/19 Pantoprazole Sodium 20 mg PO QHS 03/23/19 Pramipexole Di-HCl [Pramipexole Dihydrochloride] 0.75 mg PO QHS 03/23/19 Promethazine HCl 25 mg PO Q6H PRN PRN 03/23/19 Simvastatin [Zocor] 40 mg PO QHS 03/23/19 Spironolactone [Aldactone] 25 mg PO DAILY 03/23/19 Aspirin 81 mg PO DAILY 06/25/19 Polyethylene Glycol 3350 [Miralax] 17 gm PO QHS 06/25/19 Senna [Senokot] 2 tab PO QHS 06/25/19 Primary Care Physician: Jose L Valenzuela MD [Primary Care Provider] - Please Follow Up With: CARMEN VALENZUELA Disposition: Home with Hospice Minutes spent on discharge:: 35 Patient Condition:: Stable Medical Necessity - Tobacco Use Smoking Status: Former smoker Tobacco Use: Cigarettes Meaningful Use Info Meaningful Use Diagnoses (Choose all that apply): None applicable Code Visit Inpatient E&M: 35894 Disch Hosp
--- NOTE | 2019-06-27 10:40 | NURSING ---
Patient's son would like for IV to remain in place. Called Hospice and spoke with LEILA Henry to determine if IV was to be removed. Per Elaine, if patient's son would like IV to remain in place that was fine as long as the hospitalist was okay with same. IV can be removed by hospice if it is not needed. RN spoke with Dr. Garcia about IV staying in place and hospice to remove if needed. Dr. Garcia okay with same. Patient's son aware. Patient to be discharged with IV in place.
--- NOTE | 2019-06-27 11:01 | CASEMGMT ---
Patient signed Hospice papers. Her plan is to discharge home today. SW faxed d/c instructions to Hospice. Her son will transport her home. RN is going over d/c information now and patient will probably be leaving in the next 20 minutes. EMELIA called Hospice and let Elaine know about d/c. Plan: Home with Hospice. Bridgette NESS MSW
--- NOTE | 2019-06-27 11:45 | NURSING ---
Discharge teaching completed with patient's son , Kalia. Informed him to wait to give medications until reviewed by hospice since patient's bp low. Son agreed with same.
== END 2019-06-27 11:49 | disposition hospice, home (50) | DRG 391 ==
LOC: ED 09:37 → PCU 12:05
PROVIDERS: Admitting Provider Family Medicine; Emergency Provider Emergency Medicine; Family Provider Family Medicine; PCP Family Medicine; Referring Provider Family Medicine; Visit Provider Family Medicine
DX: K44.0 Diaphragmatic hernia with obstruction, without gangrene (principal); I21.4 Non-ST elevation (NSTEMI) myocardial infarction; E87.1 Hypo-osmolality and hyponatremia; I51.81 Takotsubo syndrome; G25.81 Restless legs syndrome; G47.00 Insomnia, unspecified; B35.4 Tinea corporis; Z79.899 Other long term (current) drug therapy; Z79.82 Long term (current) use of aspirin; Z66 Do not resuscitate; K21.9 Gastro-esophageal reflux disease without esophagitis; F32.9 Major depressive disorder, single episode, unspecified; E78.5 Hyperlipidemia, unspecified; I25.10 Atherosclerotic heart disease of native coronary artery without angina pectoris; B35.1 Tinea unguium; G24.01 Drug induced subacute dyskinesia; I10 Essential (primary) hypertension; E11.40 Type 2 diabetes mellitus with diabetic neuropathy, unspecified; Z68.23 Body mass index [BMI] 23.0-23.9, adult; F41.9 Anxiety disorder, unspecified; Z90.49 Acquired absence of other specified parts of digestive tract; Z87.891 Personal history of nicotine dependence
CPT/HCPCS: 36415; 74018; 74176; 74246; 80048; 80053; 81001; 83605; 83690; 84484; 85025; 93005; 93306; 93454; 94640; 97802; 99285; J7030; J7040; Q9967; A4216; C1769; C1894; J2405